=== PATIENT | female | born 1965 | race Caucasian/White ===

== ENCOUNTER 2023-12-28 14:24 | Outpatient (OUT) | payer OTHER, SELFPAY ==
--- NOTE | 2023-12-28 14:26 | VEIN_ITS ---
The [address] [address] Patient Name: CARI HALE MRN: [id number] date: 1965 Sex: F Assigned Patient Location: Current Patient Location: Accession/Order Number: [id number] Exam Date: 12/28/2023 14:26 Report Date: 12/29/2023 07:17 At the request of: GREY PAZ Procedure: VC SEGMENTAL PRESSURES EXAM: VC SEGMENTAL PRESSURES HISTORY: R09.89 symptoms and signs involving the circulatory systems COMPARISON: None. FINDINGS: Segmental pressures presented as follows (right, left) in mmHg. Brachial: 133, 134 Upper thigh: 186, 188 Lower thigh: 107, 99 Calf: 148, 175 DPA: 89, 98 SECURITIES CLERK: 94, 99 1st Toe: 69, 63 JENNIFER: 0.70, 0.74 TBI: 0.51, 0.47 The ABIs are abnormal consistent with moderate arterial disease The TBI's are abnormal consistent with severe arterial disease PVR waveforms: Right leg: Thigh: Moderate PAD Above knee: Moderate PAD Below knee: Moderate PAD Right ankle: Severe PAD Left leg: Thigh: Moderate PAD Above knee: Moderate PAD Below knee: Moderate PAD Right ankle: Severe PAD VEIN/VC SEGMENTAL PRESSURES IMPRESSION: PVR waveforms consistent with bilateral moderate to severe peripheral arterial disease, the severity progresses from proximal to distal leg Bilateral ABIs/TBI's are consistent with moderate to severe arterial disease Electronically authenticated by: SHANNAN HONG Date: 12/29/2023 07:17
== END 2023-12-28 14:25 | disposition home or self-care (01) ==
PROVIDERS: PCP Physician Assistant; Visit Provider Physician Assistant
DX: R09.89 Other specified symptoms and signs involving the circulatory and respiratory systems (principal)
CPT/HCPCS: 93923

== ENCOUNTER 2024-01-25 15:43 | Outpatient (OUT) | payer OTHER, SELFPAY | END 2024-01-25 15:44 | disposition home or self-care (01) | LOC: WC 15:44 | PROVIDERS: PCP Physician Assistant; Visit Provider Podiatrist Foot & Ankle Surgery | DX: L97.521 Non-pressure chronic ulcer of other part of left foot limited to breakdown of skin (principal) | CPT/HCPCS: G0463 ==

== ENCOUNTER 2024-01-27 12:44 | Outpatient (OUT) | payer OTHER, SELFPAY ==
[2024-01-27 13:04] LABS: Estimated GFR (African America >60 (>=60); Estimated GFR (Non-African Ame >60 (>=60)
== END 2024-01-27 12:45 | disposition home or self-care (01) ==
LOC: LAB 12:44
PROVIDERS: Visit Provider Student in an Organized Health Care Education/Training Program
DX: I73.9 Peripheral vascular disease, unspecified (principal)
CPT/HCPCS: 36415; 82565

== ENCOUNTER 2024-01-27 13:00 | Outpatient (OUT) | payer OTHER, SELFPAY ==
--- NOTE | 2024-01-27 13:41 | CT_ITS ---
[address] [address] Patient Name: CARI HALE MRN: [id number] date: 1965 Sex: F Assigned Patient Location: CT Current Patient Location: CT Accession/Order Number: [id number] Exam Date: 01/27/2024 13:33 Report Date: 01/27/2024 15:39 At the request of: NON-STAFF PHYSICIAN Procedure: CT angio abd aorta runoff EXAMINATION: CT angio abd aorta runoff HISTORY: Peripheral arterial disease COMPARISON: 03/16/2022 TECHNIQUE: After obtaining the patient's consent, CT images of the abdomen, pelvis, and lower extremities were obtained without and with non-ionic intravenous contrast material. Multi-planar reformatted/3-D images were created to optimize visualization of vascular anatomy. Dose reduction techniques were achieved by using automated exposure control and/or adjustment of mA and/or kV according to patient size and/or use of iterative reconstruction technique. FINDINGS: AORTA: No abdominal aortic aneurysm. Extensive soft and calcific atherosclerosis with approximately 60% narrowing of the distal abdominal aorta down to 5.4 mm in diameter, axial image 53 Celiac: Flow significant stenosis occlusion or aneurysm SMA: No flow significant stenosis occlusion or aneurysm Renals: Single right renal artery. Single left renal artery. No flow significant stenosis occlusion or aneurysm JIMY: No flow significant stenosis occlusion or aneurysm ILIAC: Moderate soft and calcific atherosclerotic plaque. Approximately 30% narrowing of the external iliac arteries RIGHT LEG: Moderate diffuse soft tissue calcific atherosclerotic plaque. 40% narrowing in the common femoral artery. Patent profunda femoral and deep femoral arteries. Long segment narrowing throughout the superficial femoral artery up to 80% axial image 165. 50% flow stenosis proximal popliteal artery. Flow is identified in the runoff arteries with the anterior posterior tibial artery is visualized to the distal feet and the peroneal artery to the mid calf LEFT LEG: Flow significant stenosis in the common femoral artery estimated to be 60%, axial image 114. Flow identified in the profunda femoral and deep femoral arteries. Long segment soft and calcific plaque throughout the superficial femoral artery estimated to be up to 60%, axial image 190. Flow significant stenosis in the popliteal artery estimated to be 40%. Flow identified in the runoff arteries LUNG BASES: Partially visualized 2.6 x 1.3 cm spiculated mass in the lingula with additional peripheral consolidation. LIVER: No enlargement, atrophy, abnormal density, or significant focal lesion. Focal fatty infiltration of the falciform ligament BILIARY: No visible dilatation or calcification. PANCREAS: No lesion, fluid collection, ductal dilatation, or atrophy. SPLEEN: No enlargement or focal lesion. ADRENALS: No mass or enlargement. KIDNEYS: No mass, obstruction, or calcification. BOWEL/MESENTERY: No visible mass, obstruction, or bowel wall thickening. RETROPERITONEUM: No mass or adenopathy. ABDOMINAL WALL: No mass or hernia. URINARY BLADDER: No visible focal wall thickening, lesion, or calculus. PELVIC NODES: No adenopathy. PELVIC ORGANS: No visible mass. Pelvic organs appropriate for patient age. Suspected tampon in the vagina, clinically correlate BONES: No bony lesion or fracture. Spinous process fusion L4-L5. Interbody spacer L4-L5 with 4 mm anterolisthesis of L4 and L5 CT/CT angio abd aorta runoff IMPRESSION: 2.6 cm partially visualized spiculated lingular mass. CT scan of the chest with contrast is recommended for complete evaluation Extensive atherosclerotic disease with 60% narrowing in the distal abdominal aorta, the patent abdominal aorta narrows down to a minimum of 5.4 mm in diameter Long segment flow stenosis identified bilateral superficial femoral and popliteal arteries as detailed above Electronically authenticated by: SHANNAN HONG Date: 01/27/2024 15:39
== END 2024-01-27 13:01 | disposition home or self-care (01) ==
LOC: CT 01-28 10:44
DX: I73.9 Peripheral vascular disease, unspecified (principal); I70.262 Atherosclerosis of native arteries of extremities with gangrene, left leg; R91.8 Other nonspecific abnormal finding of lung field
CPT/HCPCS: 36415; 75635; 82565; Q9967

== ENCOUNTER 2024-04-21 16:34 | Outpatient (OUT) | payer OTHER, SELFPAY ==
[2024-04-21 17:05] LABS: Basophils Absolute Auto 0.1 10^3/uL (0.0-0.1); Basophils Percent Auto 0.7 % (0.2-2.0); Eosinophils Absolute Auto 0.2 10^3/uL (0.0-0.7); Eosinophils Percent Auto 2.1 % (0.9-7.0); Hematocrit 40.7 % (36.0-48.0); Hemoglobin 13.5 g/dL (12.0-16.0); Immature Granulocytes Abs Auto 0.04 10^3/uL (0.00-0.03); Immature Granulocytes Pct Auto 0.4 % (0.0-0.5); Lymphocytes Absolute Auto 3.3 10^3/uL (1.2-3.8); Lymphocytes Percent Auto 29.5 % (20.5-60.0); Mean Corpuscular HGB Conc 33.2 g/dL (29.9-35.2); Mean Corpuscular Hemoglobin 32.1 pg (26.7-34.0); Mean Corpuscular Volume 96.9 fL (81.0-99.0); Mean Platelet Volume 9.4 fL (9.5-13.5); Monocytes Absolute Auto 0.9 10^3/uL (0.3-0.8); Monocytes Percent Auto 7.8 % (1.7-12.0); Neutrophils Absolute Auto 6.7 10^3/uL (1.4-6.5); Neutrophils Percent Auto 59.5 % (43.0-75.0); Platelet Count 359 10^3/uL (150-450); Red Cell Distribution Width 13.8 % (11.0-15.0); White Blood Count 11.2 10^3/uL (4.0-11.0)
[2024-04-21 17:18] LABS: Alanine Aminotransferase 32 U/L (14-59); Albumin Globulin Ratio 0.8; Albumin Level 3.2 g/dL (3.4-5.0); Alkaline Phosphatase 132 U/L (46-116); Anion Gap 8.9; Aspartate Amino Transferase 36 U/L (15-37); BUN Creatinine Ratio 12.8; Bilirubin Total 0.4 mg/dL (0.2-1.0); Carbon Dioxide 31.7 mmol/L (21.0-32.0); Chloride 99 mmol/L (98-107); Chol HDL Ratio 1.5; Cholesterol 214 mg/dL (<=200); Estimated GFR (African America >60 (>=60); Estimated GFR (Non-African Ame >60 (>=60); Globulin 3.9 g/dL; Glucose 56 mg/dL (74-106); HDL Cholesterol 145 mg/dL (40-60); Potassium 4.6 mmol/L (3.5-5.1); Sodium 135 mmol/L (136-145); Total Protein 7.1 g/dL (6.4-8.2); Triglycerides 91 mg/dL (<=150); VLDL CHOLESTEROL 18.2 mg/dL
== END 2024-04-21 16:35 | disposition home or self-care (01) ==
LOC: LAB 16:35
PROVIDERS: Visit Provider Family Medicine
DX: E10.9 Type 1 diabetes mellitus without complications (principal); I25.10 Atherosclerotic heart disease of native coronary artery without angina pectoris
CPT/HCPCS: 36415; 80053; 80061; 85025

== ENCOUNTER 2024-07-18 14:29 | Outpatient (OUT) | payer OTHER, SELFPAY ==
--- NOTE | 2024-07-18 14:34 | CT_ITS ---
[address] [address] Patient Name: CARI HALE MRN: [id number] date: 1965 Sex: F Assigned Patient Location: CT Current Patient Location: Accession/Order Number: [id number] Exam Date: 07/18/2024 14:42 Report Date: 07/19/2024 13:24 At the request of: NON-STAFF PHYSICIAN Procedure: CT lung screening low-dose EXAMINATION: CT lung screening low-dose HISTORY: Personal History Nicotine Use COMPARISON: CTA chest 01/14/2022 TECHNIQUE: Axial, Coronal, and Sagittal images were created without the administration of IV contrast material. Dose reduction techniques were achieved by using automated exposure control and/or adjustment of mA and/or kV according to patient size and/or use of iterative reconstruction technique. FINDINGS: LUNGS: 2.5 x 1.5 x 2.0 cm geographic shaped mass within lingula. Minimal emphysematous changes. PLEURA: No mass, effusion, or pneumothorax. VASCULATURE: No abnormality. DINAH: No mass or pathologic adenopathy. MEDIASTINUM: No mass or pathologic adenopathy. CARDIAC: No enlargement, pericardial thickening, or pericardial effusion. Coronary Artery calcifications: Coronary calcifications are heavy. AORTA: No aneurysm or dissection. CHEST WALL: No mass or axillary adenopathy BONES: No bone lesion or fracture. LIMITED ABDOMEN: Nonobstructing 5 mm total within left kidney. Limited images of the upper abdomen. OTHER: Negative. CT/CT lung screening low-dose IMPRESSION: 1. Lung-RADS Category 4B- Suspicious. Findings for which additional diagnostic testing and/ or tissue sampling is recommended. Chest CT with or without contrast, PET/CT and/ or tissue sampling depending on the * probability of malignancy and comorbidities. PET/CT may be used when there is a >= 8 mm solid component. 2. 2.5 cm geographic shaped mass within lingula most suggestive of neoplasm. PET imaging recommended. Electronically authenticated by: JESSE FIELDS Date: 07/19/2024 13:24
--- NOTE | 2024-07-18 14:35 | MM_ITS ---
Patient Name: CARI HALE MR#: [id number] : 1965 Exam Date: 07/18/2024 Ordering Doctor: Non-Staff Physician RADIOLOGY REPORT PROCEDURE: MM TOMOSYNTHESIS SCREENING BI COMPARISON: None. INDICATIONS: Screening Calculator Name NCI Breast Cancer Risk Assessment Tool 5 Year Breast Cancer Risk Not Reported. Lifetime Breast Cancer Risk Not Reported. Personal Breast Cancer No Personal Ovarian Cancer No Treatments None Family Cancers None LOCATION: [facility] BREAST COMPOSITION: The breasts are extremely dense, which lowers the sensitivity of mammography. FINDINGS: DIAGNOSTIC CATEGORY 0--INCOMPLETE: NEED ADDITIONAL IMAGING EVALUATION. Scattered benign-appearing calcifications are present. Scattered benign-appearing lymph nodes are present. RIGHT BREAST: No significant suspicious finding. LEFT BREAST: 3 cm area of architectural distortion anterior breast, spot compression and ultrasound recommended RECOMMENDATIONS: ADDITIONAL MAMMOGRAPHIC VIEWS REQUIRED: LEFT BREAST - spot compression views ULTRASOUND: LEFT BREAST PLEASE NOTE: A NORMAL MAMMOGRAM DOES NOT EXCLUDE THE POSSIBILITY OF BREAST CANCER. A CLINICALLY SUSPICIOUS PALPABLE LUMP SHOULD BE BIOPSIED. Dictated by: Tc Boland MD on 07/18/2024 at 15:36 Approved by: Tc Boland MD on 07/18/2024 at 15:40
--- OUTSIDE RECORDS SUMMARY | 2024-07-18 14:48 | XMS_ITS | CCD ---
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 Name Role Phone REQUEST, DR NONE LISTED Primary Care UnavailSHAIKH Leydi Mirza Admitting Unavailable SHAIKH Leydi SHELBY Attending Unavailable DONNIE, DR JESSE Olmos Consulting Unavailable CHRISTIANA, DR BELLAMY Consulting Unavailable SHAIKH Leydi SHELBY Consulting Unavailable SILVA ALMANZAR Consulting Unavailable Geovanny Schaffer Unavailable Panchito DIALLO Primary Care Physician [phone] DO Panchito Diallo Primary Care Provider MD Geovanny Schaffer Attending Provider [phone] Oren Jones Unavailable Haylee Hinds Admitting Unavailable Haylee Hinds Attending Unavailable Panchito Diallo Primary Care Unavailable Frida Valdez Primary Care Physician [phone] Frida Valdez Attending Unavailable Frida Valdez Attending Unavailable Frida Valdez Attending Unavailable Frida Valdez Attending Unavailable José MiguelFrida cedillo Attending Unavailable Panchito DIALLO Attending Unavailable Han Olivera Attending Unavailable Lee Martinez Attending Unavailable Jesse Carr Consulting Unavailable Lee Martinez Admitting Unavailable Jesse Carr Consulting Unavailable Jesse Carr Consulting Unavailable Jesse Carr Consulting Unavailable Jesse Carr Consulting Unavailable Jesse Carr Consulting Unavailable Jesse Carr Consulting Unavailable Jesse Carr Consulting Unavailable Jesse Carr Consulting Unavailable MD Jesse Carr Consulting Unavailable Oren Mir Consulting UnavailMD Oren Steward Consulting Unava ilOren Leavitt Consulting Unavaila Lee Carey Attending Unavailable MD Oren Mir Consulting Lee Clement Admitting Unavailable Jesse Carr Consulting Unavailable CLINT Valdez Admitting Unavailable Unavailable Unavailable Unavailable Allergies Allergy Classification Reported Allergen(s) Allergy Type Date of Onset Reaction(s) Facility (7 sources) Dextroamphetamine ; Translations: [Lipitor] Drug Allergy [address] [facility] Repository (16 sources) Penicillins; Translations: [penicillins] Drug allergy (disorder) 0 Swelling of Lip/Tongue/Thro at [facility] Repository (19 sources) atorvastatin; Translations: [atorvastatin] Drug Allergy 3 Unknown, Unknown Reaction [facility] (10 sources) Penicillin G Drug Allergy Unknown [employer] Other (14 sources) Acetaminophen / HYDROcodone; Translations: [acetaminophen-hy drocodone] Drug Allergy [facility] (14 sources) Pravastatin; Translations: [pravastatin] Drug Allergy [facility] (1 source) atorvastatin Drug Allergy 3 [facility] Repository (1 source) Penicillin Drug Allergy 3 [facility] Repository (1 source) Penicillins Drug allergy (disorder) 3 [facility] Repository Medications Current Medications Medication Drug Class(es) Dates Sig (Normalized) Sig (Original) amitriptyline hydrochloride 10 mg oral tablet (2 sources) Tricyclic Antidepressant Start: 12-09-2020 take 1 tablet by mouth once daily at bedtime amitriptyline 10 mg Tab 10 mg = 1 tab(s), Oral, Once a day (at bedtime), # 90 tab(s), Refills(s) 3, Pharmacy: [facility]/pharmacy #[id number], 160, cm, 12/09/20 13:39:00 EDT, Height/Length Dosing, 62.2, kg, 12/09/20 13:39:00 EDT, Weight Dosing Start Date: 12/09/20 Status: Ordered aspirin 81 mg delayed release oral tablet (7 sources) Platelet Aggregation Inhibitor, Nonsteroidal Anti-inflammatory Drug Start: 03-21-2024 take 1 tablet by mouth once daily aspirin 81 mg Oral EC Tab 81 mg = 1 tab(s), Oral, Daily, # 30 tab(s), Refills(s) 0 Start Date: 03/21/24 Status: Ordered Aspirin Active balsalazide disodium 750 mg oral capsule (4 sources) Aminosalicylate take 2 capsules by mouth twice daily Balsalazide Disodium 750 MG TAKE 2 CAPSULES BY MOUTH TWICE A DAY for 30 Active budesonide 3 mg delayed release oral capsule (9 sources) Corticosteroid Start: 07-28-2023 take 1 capsule by mouth three times daily Budesonide 3 MG 1 Capsule Orally three times per day for 30 days Jul, Active Start: 01-18-2023 budesonide 3 m g oral delayed release capsule 9 mg = 3 cap(s), Oral, Daily, 90 EA, 0 Refill(s), TAKE 3 CAPSULES BY MOUTH EVERY DAY, Refills(s) 0 Start Date: 05/25/23 Status: Ordered Start: 10-13-2022 take 9 mg by mouth once daily Budesonide Active 9 MG PO Daily 90 October 13, 2022 12:00am Start: 09-30-2020 take 3 capsules by m outh once daily in the morning budesonide 3 mg oral delayed release capsule 9 mg = 3 cap(s), Oral, qAM, # 90 cap(s), Refills(s) 2, Pharmacy: [facility]/pharmacy #[id number], 160, cm, 09/05/20 14:51:00 EST, Height/Length Dosing, 60.4, kg, 09/05/20 14:51:00 EST, Weight Dosing Start Date: 09/30/20 Status: Ordered 24 hr buPROPion hydrochloride 150 mg extended release oral tablet (1 source) Aminoketone Start: 03-21-2024 take 1 tablet by mouth once daily buPROPion 150 mg/24 hours XL Tab 150 mg = 1 tab(s), Oral, Daily, Refills(s) 0 Start Date: 03/21/24 Status: Ordered carbidopa 10 mg / levodopa 100 mg oral tablet (2 sources) Aromatic Amino Acid Decarboxylation Inhibitor, Aromatic Amino Acid Start: 09-24-2020 Sinemet 10 mg-100 mg Tab 1 tab(s), Oral, BID, 60 tab(s), Refill(s) 5, [facility]/pharmacy #[id number], 160, cm, 09/05/20 14:51:00 EST, Height/Length Dosing, 60.4, kg, 09/05/20 14:51:00 EST, Weight Dosing Start Date: 09/24/20 Status: Ordered citalopram 10 mg oral tablet (11 sources) Serotonin Reuptake Inhibitor Start: 10-13-2022 take 10 mg by mouth once daily Citalopram Active 10 MG PO Daily October 13, 2022 12:00am Start: 05-12-2022 take 3 tablets by mo [facility] once daily, then take 2 tablets by mouth once daily, then take 1 tablet by mouth once daily, then take 0.5 tablet by mouth once daily citalopram 10 mg Tab See Instructions, 3 tab(s) Oral Daily x 2 weeks, then 2 tabs daily x 2 weeks then 1 tab daily x 1 week then 1/2 tab daily x 1 week., # 74 tab(s), Refills(s) 0, Pharmacy: [facility]/pharmacy #[id number], 158, cm, 05/12/22 15:40:00 EDT, Height/Length Dosing, 59.8, k... Start Date: 05/12/22 Status: Ordered Start: 02-05-2022 [facility] CeleXA 40 mg Tab 40 mg = 1 tab(s), Oral, Daily, # 90 tab(s), Refills(s) 1, Pharmacy: [facility]/pharmacy #[id number], 158, cm, 09/02/21 14:45:00 EST, Height/Length Dosing, 60, kg, 09/02/21 14:45:00 EST, Weight Dosing Start Date: 02/05/22 Status: Ordered Citalopram [place] bromide Active clopidogrel 75 mg oral tablet (1 source) [id number] Platelet Inhibitor Start: 03-21-2024 take 1 tablet by mouth once daily clopidogrel 75 mg Tab 75 mg = 1 tab(s), Oral, Daily, # 30 tab(s), Refills(s) 0 Start Date: 03/21/24 Status: Ordered colestipol hydrochloride 1000 mg oral tablet (2 sources) Bile Acid Sequestrant Start: 10-26-2022 take 2 tablets by mouth every twenty-four hours Colestipol HCl 1 GM 2 tablets Orally Once a day for 30 days Sep, Active dicyclomine hydrochloride 20 mg oral tablet (4 sources) Anticholinergic Dicyclomine HCl 20 MG TAKE 1 TABLET BY MOUTH THREE TIMES A DAY FOR 30 DAYS for 30 Active ergocalciferol 1.25 mg oral capsule (1 source) Provitamin D2 Compound Start: 10-13-2022 take 50 ug by mouth every week Ergocalciferol (Vitamin D2) Active 50 MCG PO every week October 13, 2022 12:00am escitalopram 10 mg oral tablet (5 sources) Serotonin Reuptake Inhibitor Start: 12-31-2022 take 1 tablet by mouth once daily escitalopram 10 mg Tab 10 mg = 1 tab(s), Oral, Daily, # 90 tab(s), Refills(s) 0, Pharmacy: [facility]/pharmacy #[id number], 158, cm, 12/31/22 15:13:00 EDT, Height/Length Dosing, 57.9, kg, 12/31/22 15:13:00 EDT, Weight Dosing Start Date: 12/31/22 Status: Ordered estradiol 2 mg oral tablet (9 sources) Estrogen Start: 12-07-2023 take 1 tablet by mouth at bedtime estradiol 2 mg Tab 2 mg = 1 tab(s), Oral, Bedtime, # 90 tab(s), Refills(s) 3, Pharmacy: [facility]/pharmacy #[id number], 158, cm, 05/25/23 15:27:00 EDT, Height/Length Dosing, 57.3, kg, 05/25/23 15:27:00 EDT, Weight Dosing Start Date: 12/07/23 Status: Ordered Start: 12-25-2022 take 1 tablet by luke th at bedtime estradiol 2 mg Tab 2 mg = 1 tab(s), Oral, Bedtime, # 90 tab(s), Refills(s) 3, Pharmacy: [facility]/pharmacy #[id number], 158, cm, 06/11/22 15:39:00 EST, Height/Length Dosing, 61.4, kg, 06/11/22 15:39:00 EST, Weight Dosing Start Date: 12/25/22 Status: Ordered Start: 10-13-2022 take 2 mg by mouth once daily Estradiol Active 2 MG PO Daily October 13, 2022 12:00am Start: 01-09-2022 take 1 tablet by luke th at bedtime estradiol 2 mg Tab 2 mg = 1 tab(s), Oral, Bedtime, # 90 tab(s), Refills(s) 3, Pharmacy: [facility]/pharmacy #[id number], 158, cm, 09/02/21 14:45:00 EST, Height/Length Dosing, 60, kg, 09/02/21 14:45:00 EST, Weight Dosing Start Date: 01/09/22 Status: Ordered Fish Oils (4 sources) gabapentin 300 mg oral capsule (11 sources) Anti-epileptic Agent Start: 12-08-2021 take 1 capsule by mouth three times daily gabapentin 300 mg Cap 300 mg = 1 cap(s), Oral, TID, M54.106, # 270 cap(s), Refills(s) 1, Pharmacy: [facility]/pharmacy #[id number], 158, cm, 09/02/21 14:45:00 EST, Height/Length Dosing, 60, kg, 09/02/21 14:45:00 EST, Weight Dosing Start Date: 12/08/21 Status: Ordered hydrOXYzine hydrochloride 25 mg oral tablet (6 sources) Antihistamine Start: 02-04-2024 take 1 tablet by mouth four times daily as needed for anxiety hydrOXYzine hydrochloride 25 mg Tab 25 mg = 1 tab(s), Oral, QID, PRN for anxiety, # 40 tab(s), Refills(s) 3, Pharmacy: [facility]/pharmacy #[id number], 158, cm, 05/25/23 15:27:00 EDT, Height/Length Dosing, 57.3, kg, 05/25/23 15:27:00 EDT, Weight Dosing Start Date: 02/04/24 Status: Ordered Start: 02-01-2023 take 1 tablet by luke four times daily as needed for anxiety hydrOXYzine hydrochloride 25 mg Tab 25 mg = 1 tab(s), Oral, QID, PRN for anxiety, # 40 tab(s), Refills(s) 0, Pharmacy: [facility]/pharmacy #[id number], 158, cm, 12/31/22 15:13:00 EDT, Height/Length Dosing, 57.9, kg, 12/31/22 15:13:00 EDT, Weight Dosing Start Date: 02/01/23 Status: Ordered Start: 12-31-2022 take 1 tablet by luke four times daily as needed for anxiety hydrOXYzine hydrochloride 25 mg Tab 25 mg = 1 tab(s), Oral, QID, PRN for anxiety, # 40 tab(s), Refills(s) 0, Pharmacy: [facility]/pharmacy #[id number], 158, cm, 12/31/22 15:13:00 EDT, Height/Length Dosing, 57.9, kg, 12/31/22 15:13:00 EDT, Weight Dosing Start Date: 12/31/22 Status: Ordered hyoscyamine sulfate 0.125 mg oral tablet (13 sources) Start: 01-29-2023 End: 02-28-2023 hyoscyamine 0.125 mg oral Ta b 0.125 mg = 1 tab(s), Oral, QID, TAKE 1 TABLET BY MOUTH EVERY 4 HOURS NEEDED FOR 30 DAYS, X 30 day(s), # 120 tab(s), Refills(s) 0, [id number], 158, cm, 12/31/22 15:13:00 EDT, Height/Length Dosing, 57.9, kg, 12/31/22 15:13:00 EDT, W... Start Date: 01/29/23 Stop Date: 02/28/23 Status: Ordered Start: 01-14-2023 take 1 tablet under the tongue four times daily as needed Hyoscyamine Sulfate 0.125 MG 1 tablet under the tongue and allow to dissolve as needed Sublingual Four times a day for 30 days Dec, Active Start: 12-31-2022 take 1 tablet by luke th every four hours as needed hyoscyamine 0.125 mg oral Tab TAKE 1 TABLET BY MOUTH EVERY 4 HOURS NEEDED FOR 30 DAYS Start Date: 12/31/22 Status: Ordered take 1 tablet under the tongue three times daily as needed Levsin/SL 0.125 MG 1 tablet under the tongue and allow to dissolve as needed Sublingual Three times a day for 30 days Active Insulin Aspart U-100 (Novolog U-100 Insulin Aspart) 100 unit/mL solution (1 source) Start: 10-13-2022 inject 19 [IU] by subcutaneous injection once daily Insulin Aspart U-100 (Novolog U-100 Insulin Aspart) 100 unit/mL solution Active 19 UNIT SUBCUT Daily October 13, 2022 12:00am sliding scale insulin aspart, human 100 unt/ml injectable solution (18 sources) Insulin Analog Start: 12-01-2023 NovoLOG 100 units/mL injectable solution See Instructions, 35 units daily per pump. Dx E11.01, # 10 mL, Refills(s) 5, Pharmacy: [facility]/pharmacy #[id number], 158, cm, 05/25/23 15:27:00 EDT, Height/Length Dosing, 57.3, kg, 05/25/23 15:27:00 EDT, Weight Dosing Start Date: 12/01/23 Status: Ordered Start: 02-08-2023 NovoLOG 100 un its/mL injectable solution See Instructions, 35 units daily per pump. Dx E11.01, # 10 mL, Refills(s) 5, Pharmacy: [facility]/pharmacy #[id number], 158, cm, 12/31/22 15:13:00 EDT, Height/Length Dosing, 57.9, kg, 12/31/22 15:13:00 EDT, Weight Dosing Start Date: 02/08/23 Status: Ordered Start: 07-23-2022 NovoLOG 100 un its/mL injectable solution See Instructions, 35 units daily per pump. Dx E11.01, # 10 mL, Refills(s) 5, Pharmacy: [facility]/pharmacy #[id number], 158, cm, 06/11/22 15:39:00 EST, Height/Length Dosing, 61.4, kg, 06/11/22 15:39:00 EST, Weight Dosing Start Date: 07/23/22 Status: Ordered Start: 10-24-2021 NovoLOG 100 un its/mL injectable solution See Instructions, 35 units daily per pump. Dx E11.01, # 10 mL, Refills(s) 5, Pharmacy: [facility]/pharmacy #[id number], 158, cm, 09/02/21 14:45:00 EST, Height/Length Dosing, 60, kg, 09/02/21 14:45:00 EST, Weight Dosing Start Date: 10/24/21 Status: Ordered NovoLOG Active lamoTRIgine 100 mg oral tablet (11 sources) Mood Stabilizer, Anti-epileptic Agent Start: 03-21-2024 take 1 tablet by mouth once daily lamotrigine 100 mg Tab 100 mg = 1 tab(s), Oral, Daily, Refills(s) 0 Start Date: 8/20/24 Status: Ordered Start: 05-12-2022 take 3 tablets by mo [facility] once daily lamotrigine 50 mg oral tablet, extended release See Instructions, 3 tab(s) Oral Daily x 2 week, then 2 tabs x 2 week then 1 tab x 2 week. Then will start the 25 mg, # 74 tab(s), Refills(s) 0, [id number], 158, cm, 05/12/22 15:40:00 EDT, Height/Length Dosing, 59.8, kg, 05/12/22 15:... Start Date: 05/12/22 Status: Ordered Start: 02-05-2022 [facility] lamotrigine 200 mg Tab 200 mg = 1 tab(s), Oral, Daily, # 90 tab(s), Refills(s) 1, [id number], 158, cm, 09/02/21 14:45:00 EST, Height/Length Dosing, 60, kg, 09/02/21 14:45:00 EST, Weight Dosing Start Date: 02/05/22 Status: Ordered lamoTRIgine Acti ve levothyroxine sodium 0.15 mg oral tablet (19 sources) l-Thyroxine Start: 02-28-2024 take 1 tablet by mouth once daily levothyroxine 150 mcg (0.15 mg) Tab See Instructions, TAKE 1 TABLET BY MOUTH EVERY DAY, # 90 tab(s), Refills(s) 1, Pharmacy: [id number], 158, cm, 05/25/23 15:27:00 EDT, Height/Length Dosing, 57.3, kg, 05/25/23 15:27:00 EDT, Weight Dosing Start Date: 02/28/24 Status: Ordered Start: 10-13-2022 take 150 ug by mouth once daily Levothyroxine Active 150 MCG PO Daily October 13, 2022 12:00am Start: 08-13-2022 take 1 tablet by luke once daily Synthroid 150 mcg (0.15 mg) Tab 0.15 mg = 1 tab(s), Oral, Daily, # 90 tab(s), Refills(s) 1, [id number], 158, cm, 06/11/22 15:39:00 EST, Height/Length Dosing, 61.4, kg, 06/11/22 15:39:00 EST, Weight Dosing Start Date: 08/13/22 Status: Ordered Start: 02-05-2022 take 1 tablet by luke th once daily Synthroid 150 mcg (0.15 mg) Tab 0.15 mg = 1 tab(s), Oral, Daily, # 90 tab(s), Refills(s) 1, Pharmacy: [facility]/pharmacy #[id number], 158, cm, 09/02/21 14:45:00 EST, Height/Length Dosing, 60, kg, 09/02/21 14:45:00 EST, Weight Dosing Start Date: 02/05/22 Status: Ordered Levothyroxine So dium Active LORazepam 0.5 mg oral tablet (1 source) Benzodiazepine Start: 05-12-2022 End: 05-26-2022 take 1 tablet by mouth once daily as needed for anxiety Ativan 0.5 mg Tab 0.5 mg = 1 tab(s), Oral, Daily, PRN for anxiety, X 14 day(s), # 14 tab(s), Refills(s) 0, Pharmacy: [facility]/pharmacy #[id number], 158, cm, 05/12/22 15:40:00 EDT, Height/Length Dosing, 59.8, kg, 05/12/22 15:40:00 EDT, Weight Dosing Start Date: 05/12/22 Stop Date: 05/26/22 Status: Ordered Medtronic Insulin Pump 770G (8 sources) Start: 02-13-2021 Medtronic Insu james Pump 770G Medtronic Insulin Pump 770G, See Instructions, 1 EA, 0, as directed, Supply Start Date: 02/13/21 Status: Ordered ONETOUCH DELICA PLUS 33G LANCT (2 sources) Start: 05-12-2022 ONETOUCH DELIC A PLUS 33G LANCT USE TO TEST BLOOD SUGAR 5 TIMES A DAY AND NEEDED DX: E11.69 Start Date: 05/12/22 Status: Ordered predniSONE 5 mg oral tablet (3 sources) Start: 10-15-2022 predniSONE 5 M G 4 tabs daily for 7 days, 3 tabs daily for 7 days, 2 tabs daily for 7 days, 1 tab daily for 7 days Orally Once a day for 28 days Sep, Active progesterone 100 mg oral capsule (19 sources) Progesterone Start: 01-03-2024 take 1 capsule by mouth once daily at bedtime progesterone 100 mg oral capsule 100 mg = 1 cap(s), Oral, Once a day (at bedtime), # 90 cap(s), Refills(s) 3, Pharmacy: [facility]/pharmacy #[id number], 158, cm, 05/25/23 15:27:00 EDT, Height/Length Dosing, 57.3, kg, 05/25/23 15:27:00 EDT, Weight Dosing Start Date: 01/03/24 Status: Ordered Start: 01-06-2023 take 1 capsule by mo uth once daily at bedtime progesterone 100 mg oral capsule 100 mg = 1 cap(s), Oral, Once a day (at bedtime), # 90 cap(s), Refills(s) 3, Pharmacy: [facility]/pharmacy #[id number], 158, cm, 12/31/22 15:13:00 EDT, Height/Length Dosing, 57.9, kg, 12/31/22 15:13:00 EDT, Weight Dosing Start Date: 01/06/23 Status: Ordered Start: 01-16-2022 take 1 capsule by mo uth once daily at bedtime progesterone 100 mg oral capsule 100 mg = 1 cap(s), Oral, Once a day (at bedtime), # 90 cap(s), Refills(s) 3, Pharmacy: [facility]/pharmacy #[id number], 158, cm, 09/02/21 14:45:00 EST, Height/Length Dosing, 60, kg, 09/02/21 14:45:00 EST, Weight Dosing Start Date: 01/16/22 Status: Ordered Progesterone Act marlo propranolol hydrochloride 20 mg oral tablet (13 sources) beta-Adrenergic Geoffrey Start: 05-12-2022 take 1 tablet by mouth twice daily propranolol 20 mg Tab 20 mg = 1 tab(s), Oral, BID, # 180 tab(s), Refills(s) 3, Pharmacy: [facility]/pharmacy #[id number], 158, cm, 05/25/23 15:27:00 EDT, Height/Length Dosing, 57.3, kg, 05/25/23 15:27:00 EDT, Weight Dosing Start Date: 05/26/23 Status: Ordered rosuvastatin calcium 5 mg oral tablet (11 sources) HMG-CoA Reductase Inhibitor Start: 01-18-2024 take 1 tablet by mouth once daily rosuvastatin 5 mg Tab 5 mg = 1 tab(s), Oral, Daily, # 90 tab(s), Refills(s) 1, [id number], 158, cm, 05/25/23 15:27:00 EDT, Height/Length Dosing, 57.3, kg, 05/25/23 15:27:00 EDT, Weight Dosing Start Date: 01/18/24 Status: Ordered Start: 07-31-2022 take 1 tablet by luke th once daily rosuvastatin 5 mg Tab 5 mg = 1 tab(s), Oral, Daily, # 90 tab(s), Refills(s) 1, [id number], 158, cm, 06/11/22 15:39:00 EST, Height/Length Dosing, 61.4, kg, 06/11/22 15:39:00 EST, Weight Dosing Start Date: 07/31/22 Status: Ordered sertraline 50 mg oral tablet (3 sources) Serotonin Reuptake Inhibitor Start: 01-03-2023 take 1 tablet by mouth once daily Zoloft 50 mg Tab 50 mg = 1 tab(s), Oral, Daily, # 90 tab(s), Refills(s) 0, [id number], 158, cm, 12/31/22 15:13:00 EDT, Height/Length Dosing, 57.9, kg, 12/31/22 15:13:00 EDT, Weight Dosing Start Date: 01/03/23 Status: Ordered sulfaSALAzine 500 mg oral tablet (4 sources) Aminosalicylate Start: 12-22-2022 take 1 tablet by mouth every twenty-four hours sulfaSALAzine 500 MG 1 tablet Orally Once a day for 30 days November, Active vitamin B12 (6 sources) Vitamin B12 Vitamin B12 Acti ve Vitamin D (10 sources) Vitamin D Active Vitamin D 50,000 intl units (1.25 mg) oral capsule (8 sources) Start: 12-10-2023 Vitamin D 50,0 00 intl units (1.25 mg) oral capsule 50,000 International_Unit, Oral, qWeek, # 12 EA, Refills(s) 3, [id number], 158, cm, 05/25/23 15:27:00 EDT, Height/Length Dosing, 57.3, kg, 05/25/23 15:27:00 EDT, Weight Dosing Start Date: 12/10/23 Status: Ordered Start: 12-25-2022 Vitamin D 50,0 00 intl units (1.25 mg) oral capsule 50,000 International_Unit, Oral, qWeek, # 12 EA, Refills(s) 3, [id number], 158, cm, 06/11/22 15:39:00 EST, Height/Length Dosing, 61.4, kg, 06/11/22 15:39:00 EST, Weight Dosing Start Date: 12/25/22 Status: Ordered Start: 10-23-2021 Vitamin D 50,0 00 intl units (1.25 mg) oral capsule 50,000 International_Unit, Oral, qWeek, # 12 EA, Refills(s) 3, [id number], 158, cm, 09/02/21 14:45:00 EST, Height/Length Dosing, 60, kg, 09/02/21 14:45:00 EST, Weight Dosing Start Date: 10/23/21 Status: Ordered Problems Active Problems Problem Classification Problem Date Documented Da te Episodic/Chronic Abdominal pain (13 sources) Abdominal pain; Translations: [Unspecified abdominal pain] Onset: 10-29-2021 Resolved: 10-29-2021 Episodic Alcohol-related disorders (2 sources) Alcohol dependence, in remission; Translations: [Alcohol abuse] Onset: 01-19-2022 Chronic Allergic reactions (1 source) Dermatitis, unspecified; Translations: [Dermatitis, unspecified] Onset: 10-08-2023 Episodic Anxiety disorders (9 sources) Anxiety disorder; Translations: [Anxiety disorder, unspecified] Onset: 12-31-2022 05-26-2021 Chronic Chronic obstructive pulmonary disease and bronchiectasis (11 sources) Pulmonary emphysema; Translations: [Emphysema, unspecified] Onset: 05-12-2022 Chronic Complications of surgical procedures or medical care (1 source) Postoperative hypothyroidism; Translations: [Postprocedural hypothyroidism] Onset: 03-21-2024 Chronic Coronary atherosclerosis and other heart disease (10 sources) Atherosclerotic heart disease of [place] coronary artery without angina pectoris; Translations: [Coronary atherosclerosis] Onset: 01-19-2022 01-18-2014 Chronic Coronary atherosclerosis and other heart disease (1 source) Presence of coronary angioplasty implant and graft; Translations: [PRESENCE COR ANGPLSTY IMPLANT AND GRAFT] Onset: 01-19-2022 Episodic Diabetes mellitus with complications (10 sources) Complication due to diabetes mellitus; Translations: [Type 2 diabetes mellitus with other specified complication] Onset: 12-31-2022 Chronic Comment on above: Noted in [facility] doc umentation 08/12/2021 page 2, added per outpatient CDI policy. Diabetes mellitus without complication (10 sources) Type 1 diabetes mellitus without complications; Translations: [Type 2 diabetes mellitus without complication] Onset: 01-19-2022 Chronic Comment on above: Added per outpatient CDI policy. Diabetes mellitus without complication (1 source) Presence of insulin pump (external) (internal); Translations: [PRESENCE INSULIN PUMP EXT INTERNAL] Onset: 01-19-2022 Episodic Disorders of lipid metabolism (11 sources) Hyperlipidemia; Translations: [Hyperlipidemia, unspecified] Onset: 12-31-2022 05-26-2019 Chronic E Codes: Fall (1 source) Unspecified fall, initial encounter; Translations: [UNSPECIFIED FALL INITIAL ENCOUNTER] Onset: 01-19-2022 Episodic Essential hypertension (10 sources) Hypertensive disorder; Translations: [Essential hypertension] Onset: 12-31-2022 01-18-2014 Chronic Fluid and electrolyte disorders (7 sources) Dehydration; Translations: [Dehydration] Onset: 12-31-2022 Episodic Menopausal disorders (1 source) Postmenopausal bleeding 05-25-2023 Chronic Mood disorders (12 sources) Major depressive disorder, single episode, unspecified; Translations: [Mild major depression, single episode] Onset: 01-19-2022 Chronic Nonspecific chest pain (4 sources) Chest pain, unspecified; Translations: [CHEST PAIN UNSPECIFIED] Onset: 01-14-2022 Episodic Nutritional deficiencies (8 sources) Vitamin D deficiency 05-26-2019 Chronic Nutritional deficiencies (7 sources) Vitamin B deficiency; Translations: [Deficiency of other specified B group vitamins] Onset: 12-31-2022 Episodic Osteoarthritis (8 sources) Osteoarthritis 11-16-2014 Chronic Comment on above: Knees Other aftercare (1 source) Other senior living (current) drug therapy; Translations: [OTH [facility] CURRENT DRUG THERAPY] Onset: 01-19-2022 Episodic Other aftercare (1 source) residential (current) use of insulin; 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] Onset: 01-19-2022 Episodic Other aftercare (1 source) Long-term current use of insulin; Translations: [residential (current) use of insulin] Onset: 12-31-2022 Episodic Other and unspecified benign neoplasm (8 sources) History of polyp of colon 09-02-2021 Episodic Other endocrine disorders (8 sources) Disorder of endocrine system; Translations: [Endocrine disorder, unspecified] Onset: 05-12-2022 Episodic Other gastrointestinal disorders (10 sources) Incontinence of feces; Translations: [Full incontinence of feces] Episodic Other gastrointestinal disorders (10 sources) Abnormal feces; Translations: [Other fecal abnormalities] Episodic Other gastrointestinal disorders (8 sources) Loose stool 09-02-2021 Episodic Other gastrointestinal disorders (1 source) Functional diarrhea Episodic Other injuries and conditions due to external causes (1 source) Unspecified injury of head, initial encounter; Translations: [UNSPECIFIED INJURY HEAD INITIAL ENC] Onset: 01-19-2022 Episodic Other injuries and conditions due to external causes (8 sources) History of fall 05-26-2021 Episodic Other nervous system disorders (1 source) Tremor, unspecified; Translations: [TREMOR UNSPECIFIED] Onset: 01-19-2022 Episodic Other nervous system disorders (10 sources) Tremor; Translations: [Tremor, unspecified] Onset: 05-12-2022 Episodic Other screening for suspected conditions (not mental disorders or infectious disease) (9 sources) Encounter for screening mammogram for malignant neoplasm of breast; Translations: [Screening for malignant neoplasm done] Onset: 12-31-2022 Episodic Other upper respiratory disease (8 sources) Chronic hoarseness 12-27-2020 Episodic Peripheral and visceral atherosclerosis (1 source) Peripheral vascular disease; Translations: [Peripheral vascular disease, unspecified] Onset: 03-21-2024 Chronic Regional enteritis and ulcerative colitis (18 sources) Ulcerative colitis; Translations: [Ulcerative colitis, unspecified, without complications] Onset: 10-29-2021 Resolved: 10-29-2021 Chronic Residual codes; unclassified (1 source) Other problems related to lifestyle; Translations: [OTHER PROBLEMS RELATED TO LIFESTYLE] Onset: 01-19-2022 Episodic Spondylosis; intervertebral disc disorders; other back problems (8 sources) Low back pain 09-05-2020 Episodic Substance-related disorders (11 sources) Cocaine abuse, in remission; Translations: [Nicotine dependence, cigarettes, uncomplicated] Onset: 01-19-2022 12-27-2020 Chronic Comment on above: Added secondary to d ocumentation in Social History. Superficial injury; contusion (1 source) Contusion of other part of head, initial encounter; Translations: [CONTUS OTH PRT HEAD INITIAL ENCNTR] Onset: 01-19-2022 Episodic Thyroid disorders (10 sources) Hypothyroidism, unspecified; Translations: [Hypothyroidism] Onset: 01-19-2022 Chronic Transient cerebral ischemia (1 source) Transient cerebral ischemia; Translations: [Transient cerebral ischemic attack, unspecified] Onset: 03-21-2024 Chronic Unclassified (1 source) CONTACT W/AND (SUSP) EXPOS COVID-19; Translations: [CONTACT W/AND (SUSP) EXPOS COVID-19] Onset: 01-19-2022 Unclassified (16 sources) Body mass index 20-24 - normal 11-27-2019 Unclassified (8 sources) Lifestyle 05-26-2021 Unclassified (20 sources) Patient encounter status 05-26-2021 Unclassified (6 sources) Long-term current use of insulin 06-10-2022 Comment on above: Added per outpatient CDI policy. Past or Other Problems Problem Classification Problem Date Documented Da te Episodic/Chronic Other gastrointestinal disorders (2 sources) Full incontinence of feces Onset: 10-29-2021 Resolved: 11-13-2021 Episodic Other gastrointestinal disorders (1 source) Other fecal abnormalities Onset: 10-29-2021 Resolved: 10-29-2021 Episodic Results Test Name Value Interpretation Reference Range Facility Coding Queryon 03-31-2024 Coding Query Coding Query From: More Meyer To: Ghada CRUZ; Cc: Lee Martinez DO; Sent: 03/28/2024 11:04:27 EDT ! Subject: Coding Query Documentation in the medical record indicates this patient has been admitted with or diagnosed as having: TIA The following is also documented in the medical record: Patient symptoms not related to stroke. Neurology feels that symptoms are secondary to hypoglycemia due to patient increasing insulin coverage to cover alcohol abuse. MRI/MRA of the head both negative for acute findings. Based on your medical judgement, can you please verify if TIA is: [___] Ruled out [___] Ruled in [___] Other In responding to this request, please exercise your independent professional judgement. The fact that a question is asked does not imply that any particular answer is desired or expected. Thank You, More From: Ghada CRUZ To: More Meyer; Sent: 03/29/2024 21:08:38 EDT Subject: RE: Coding Query Caller Name: HALECARI Valenzuela; Caller Number: H , M ruled out... d/c summary states symptoms secondary to hypoglycemia. However, TIA was ruled out also. From: Lee Martinez DO To: More Meyer; Sent: 03/31/2024 08:15:56 EDT Subject: RE: Coding Query Caller Name: CARI HALE Terrie; Caller Number: H , M [facility] Provider Letteron 03-24-2024 Provider Letter Provider Letter March 24, 2024 CARI HALE [address] [place] [id number] CARI HALE 1965 Dear Cari, We have been trying to reach you with no success. It is important that you return our call regarding your recent hospital discharge upon receiving this letter. Also, at the time of your call, please provide us with your current information. Thank you for your prompt attention to this matter. Sincerely, Tre Salas RN Supervisor [employer] [phone] [facility] CHEMISTRYOrdered By: Lab ROP User on 03-22-2024 Glucose [Mass/Vol] 354 mg/dL High 55 - 99 mg/dL [facility] POC Subsection Comment on above: Result Comment: Carter chrystal RN/ POC Device SN [id number] 1 Invalid Interpretation Code [facility] POC Subsection POC User ID [id number] 1 Invalid Interpretation Code [facility] POC Subsection POC Username PITA BAUTISTA Invalid Interpretation Code [facility] POC Subsection Glucose [Mass/Vol] 52 mg/dL Low 55 - 99 mg/dL [facility] POC Subsection Comment on above: Result Comment: Carter chrystal RN/ POC Device SN [id number] 1 Invalid Interpretation Code [facility] POC Subsection POC User ID [id number] 1 Invalid Interpretation Code [facility] POC Subsection POC Username PITA BAUTISTA Invalid Interpretation Code [facility] POC Subsection CHEMISTRYOrdered By: SYSTEM SYSTEM on 03-22-2024 Free T4 [Mass/Vol] 1.32 ng/dL Normal 0.58 - 1. 64 ng/dL Remisol Chem TSH Qn 0.01 m[IU]/L Low 0.34 - 5.60 mcIU/mL Remisol Chem CTA Neckon 03-22-2024 CTA Neck Exam Date/Time: 03/22/2024 14:12 EDT Reason for Exam: TIA Report IMPRESSION: NO FLOW-LIMITING STENOSIS, EVIDENCE OF DISSECTION, OR OTHER ACUTE FINDINGS IDENTIFIED. EXAM: CTA Head, CTA Neck DATE: 03/22/2024 1:44 PM CLINICAL HISTORY: TIA. COMPARISON: Noncontrast head CT from earlier 03/22/2024 1:44 PM. TECHNIQUE: Spiral enhanced images were obtained of the neck after the infusion of approximately 100 mL of Isovue 370 contrast with CTA protocol. Luminal narrowings are estimated by NASCET criteria. Routine and volume rendered images were obtained on a three-dimensional workstation. All CT scans at this facility use dose modulation, iterative reconstruction, and/or weight based dosing when appropriate to reduce radiation dose to as low as reasonably achievable. FINDINGS: Mild to moderate predominantly calcified atherosclerotic plaquing of the right carotid bulb results in approximately 30% stenosis, by NASCET criteria. Mild predominantly noncalcified atherosclerotic plaquing of the left carotid bulb heterogeneous does not significantly narrow the lumen. Both vertebral arteries are widely patent and equivalent in caliber in the neck and approximately 2 to 3 mm. Mild calcified plaquing is present in the cavernous carotids There is no other significant atherosclerotic plaquing, evidence of dissection, or other acute findings identified. Moderate degenerative changes at the C5-C6 level result in mild to moderate central spinal stenosis and neural foraminal narrowing, greater on the right. Minimal degenerative changes elsewhere. The visualized apices are clear Report Ordering Provider: Ghada VALDOVINOS FINAL REPORT Dictated: 03/22/2024 2:47 pm Jerrod Alexander MD Signed (Electronic Signature): 03/22/2024 2:47 pm Signed by: Jerrod Alexander MD Transcribed by: HARRY Technologist: JOSE Technical Comments GFR (mL/min/1/73m2) >60 Contrast: Isovue 370 Contrast amount in ml's: 100 Normal [facility] Capillary Glucose POCon 03-03 Glucose [Mass/Vol] 354 mg/dL High 55-99 [facility] Comment on above: Result Comment: Carter SERRANO Performed By: #### 2 [id number] ####[facility] [address] [place] [address] Glucose [Mass/Vol] 52 mg/dL Low 55-99 [facility] Comment on above: Result Comment: Carter SERRANO Performed By: #### 2 [id number] #### [facility] [address] [place] [address] Discharge Note-Nursingon Discharge Note-Nursing Discharge Note-Nursing CARI HALE Terrie :1965 Visit Date:03/21/2024 Inpatient Discharge Instructions Your Care Team Admitting Physician - Lee Martinez DO Consulting Physician - Jesse Carr MD Reason for Your Visit weakness, stroke symptoms, since resolved Your Diagnosis TIA (transient ischemic attack) Type 2 diabetes mellitus with diabetic neuropathy HTN Hyperlipidemia PAD (peripheral artery disease) CAD Emphysema/COPD Mood disorder Alcohol abuse History of thyroidectomy Smoker Diabetes mellitus with hypoglycemia Potential stroke Weakness or fatigue Tests Performed Hemoglobin A1c -- Results Pending -- Lipid Panel -- Results Pending -- Brain MRI w/o Contrast CT Head or Brain w/o Contrast CTA Neck Echo w/ Saline Bubbles -- Results Pending -- MRA Head w/o Contrast XR Chest Single View Please visit your patient portal for your results or contact your primary care physician. This Is Your Medications List Misc Prescription (Medtronic Insulin Pump 770G) Misc Prescription (One Touch Delica Plus Lancets 33G) Misc Prescription (One Touch Delica Plus Test Strips) aspirin (aspirin 81 mg Oral EC Tab) buPROPion (buPROPion 150 mg/24 hours XL Tab) budesonide (budesonide 3 mg oral delayed release capsule) clopidogrel (clopidogrel 75 mg Tab) ergocalciferol (Vitamin D 50,000 intl units (1.25 mg) oral capsule) estradiol (estradiol 2 mg Tab) hydrOXYzine (hydrOXYzine hydrochloride 25 mg Tab) insulin aspart (NovoLOG 100 units/mL injectable solution) lamotrigine (lamotrigine 100 mg Tab) levothyroxine (levothyroxine 150 mcg (0.15 mg) Tab) progesterone (progesterone 100 mg oral capsule) propranolol (propranolol 20 mg Tab) rosuvastatin (rosuvastatin 5 mg Tab) Procedure History Caudal CHAVO (01/17/2018), caudal CHAVO (12/06/2017), Facet joint nerve block (01/17/2014), right small trigger finger release (07/17/2013), Injection of nerve root of lumbar spine using fluoroscopic guidance (03/27/2013), Epidural injection of lumbar spine using fluoroscopic guidance (12/23/2012), Epidural injection of lumbar spine using fluoroscopic guidance (07/25/2012), Angioplasty, Colonoscopy, History of back surgery....., Release of carpal tunnel for nerve decompression, Release of trigger finger, Thyroidectomy. Discharge Vitals Temperature (Axillary) 36.7 ?C Heart Rate (Monitored) 86 Respiratory Rate 20 Blood Pressure 104/68 Height 157.8 cm Weight 57.4 kg BMI 23.05 What to do next Instructions From Your Doctor Event Name Event Result Discharge Activity Activity as tolerated Discharge Diet(s) Calorie Controlled- 1800 Calorie Diet Pending Diagnostic Test Results None Discharge Instructions work up is negative for stroke. MRI/MRA of the head both negative. CTA of the neck negative for blockage. Hypoglycemia is likely due to over coverage w/alcohol intake. Please eat diabetic diet and cover w/insulin stop /reduction with alcohol intact. New Follow Up Appointments after Discharge Follow Up with Bruno HANKS, SONIA Pichardo When: Within 2 to 4 weeks Where: [facility] [address]- Medications What How Much When Why Instructions Next Dose Unchanged aspirin (aspirin 81 mg Oral EC Tab) 1 Tablets By Mouth Every day 03/23/2024 Unchanged budesonide (budesonide 3 mg oral delayed release capsule) 3 Capsules By Mouth Every day 90 EA, 0 Refill(s), TAKE 3 CAPSULES BY MOUTH EVERY DAY Resume Unchanged buPROPion (buPROPion 150 mg/ 24 hours XL Tab) 1 Tablets By Mouth Every day 03/23/2024 Unchanged clopidogrel (clopidogrel 75 mg Tab) 1 Tablets By Mouth Every day 03/23/2024 Unchanged ergocalciferol (Vitamin D 50,000 intl units (1.25 mg) oral capsule) 50,000 International unit By Mouth Every week Resume Unchanged estradiol (estradiol 2 mg Tab) 1 Tablets By Mouth At bedtime Resume tonight at bedtime Unchanged hydrOXYzine (hydrOXYzine hydrochloride 25 mg Tab) 1 Tablets By Mouth 4 times a day as needed for for anxiety Resume as needed Unchanged insulin aspart (NovoLOG 100 units/ mL injectable solution) See instructions 35 units daily per pump. Dx E11.01 As directed Unchanged lamotrigine (lamotrigine 100 mg Tab) 1 Tablets By Mouth Every day 03/23/2024 Unchanged levothyroxine (levothyroxine 150 mcg (0.15 mg) Tab) See instructions TAKE 1 TABLET BY MOUTH EVERY DAY Resume 03/23/2024 Unchanged Misc Prescription (Medtronic Insulin Pump 770G) See instructions Diabetes mellitus type 1, uncontrolled as directed Unchanged Misc Prescription (One Touch Delica Plus Lancets 33G) See instructions Use as directed. Testing blood sugars 5+ times daily. DX: E11.69 Unchanged Misc Prescription (One Touch Delica Plus Test Strips) See instructions Use as directed. Testing blood sugars 5+ times daily. DX: E11.69 Unchanged progesterone (progesterone 100 mg oral capsule) 1 Capsules By Mouth Once a day (at bedtime) R (more content not included)... Normal [facility] ED Note-Physicianon 03-22-20 ED Note-Physician ED Note-Physician Basic Information Time Seen: Han Olivera M.D. 03/21/2024 13:49 Chief Complaint c/o weakness and unable to walk. pt states this happened 2 days ago, regained ability to walk yesterday, then this morning wasnt able to move limbs. presented to EMS with right facial droop and being combative and confused.. denies hx of stroke. History of Present Illness Patient is a 59-year-old female with a history of CAD, essential tremor, hypertension, hyperlipidemia, smoking, and diabetes who presents to the ED via EMS after an episode of right facial droop, confusion, and ataxia. Patient states she developed ataxia approximately 2 days ago in which she was able to crawl into her bed from the living room and sleep. She states yesterday she had no problems with ambulation. However today upon waking up she states that she felt paralyzed and unable to move her upper or lower extremities bilaterally. Patient states she laid in bed until she was able to call her via [employer] on her phone and scream for help. She states her then called EMS. Patient denies a history of strokes. At this time she denies any complaints. Per EMS, the patient had a blood sugar of 64 in which the patient was given oral glucose. Per blood sugar then improved to 140. On arrival to the ED the patient had a blood sugar of 83. Patient states she has not had anything to eat or drink today due to being unable to get out of bed. Review of Systems A 10 point review of systems is negative except as noted above. Medical and Surgical History: Reviewed and noted Social history: Lives at home Family History: Reviewed. Tobacco: Use Physical Exam Vitals & Measurements T: 36.9 ?C(Oral) HR: 101(Peripheral) RR: 18 BP: 108/68 SpO2: 99% HT: 158 cm WT: 58.5 kg BMI: 23.43 General: The patient appears well and in no apparent distress. Patient is resting comfortably on cart. Skin: Warm, dry, no pallor noted. Head: Normocephalic, atraumatic Neck: No JVD Eye: PERRLA, EOMI, visual field intact ENT: Moist mucus membranes Cardiovascular: Regular rate normal peripheral perfusion Respiratory: No respiratory distress no accessory muscle use no obvious audible wheezing Chest Wall: no deformity Musculoskeletal: normal ROM, no deformity, no swelling GI: Soft no obvious distention. No rebound or rigidity. No guarding. No tenderness. Neurological: A&O moves all extremities equal strength and symmetry, upper extremity tremor bilaterally which is baseline, no focal neurological deficits Psychiatric: Cooperative and appropriate Medical Decision Making Patient is a 59-year-old female with a history of CAD, hypertension, hyperlipidemia, smoking, and diabetes who presents to the ED via EMS following an episode of right facial droop, confusion, and ataxia. Patient's last known well was 1300. NIH stroke scale is 0. Patient had a blood sugar of 64 while in route via EMS in which she received oral glucose. Her glucose then improved to 140. On arrival to the ED she is a glucose of 83. EMS reported that the patient had a history of TIAs, however, the patient states this is not true. On exam there are no focal neurological deficits. EKG shows sinus tachycardia with a rate of [address] head/brain shows no acute intracranial processes, but it does show mild generalized cerebral volume loss with mild patchy supratentorial white matter changes most consistent with chronic small vessel ischemic disease. Chest x-ray shows no acute cardiopulmonary abnormalities. Lab work is reviewed. Patient is a calcium of 8.5 and an alk phos of 106 but is otherwise unremarkable. On reevaluation patient has a blood glucose of 281. Her insulin pump was removed by EMS in which patient put the pump back on following this reading. I discussed the case with the hospitalist who is admitting the patient for a TIA. Assessment/Plan 1. TIA (transient ischemic attack) (G45.9: Transient cerebral ischemic attack, unspecified) Ordered: ED Physician consult Hospitalist for continued care Disposition Plan Patient Discharge Condition stable Discharge Disposition Admit Discharge Prescription List Prescriptions No active prescription medications Follow-up No qualifying data available Attestation Patient seen and evaluated by the physician speech language pathologist assistant. Attending physician was present in the emergency department and supervised care. This visit was performed by both the physician and an APC. I performed all aspects of the MDM as documented. This report was transcribed using voice recognition software. Every effort was made to ensure accuracy, however, inadvertently computerized pharmacy operations coordinator mistakes may be present. Appropriate healthcare PPE was used in evaluating this patient. The patient was placed in a mask. The healthcare provider was wearing mask, gloves, and utilizing proper hand hygiene. All equipment was properly cleansed. I performed a substantive part of the MDM during the patient?s E/M visit. (more content not included)... Normal [facility] Comment on above: Result Comment: Elec tronically Signed By: Taylor García PA-C\.br\Date and Time Signed: 03/21/24 18:42 EDT\.br\Electronically Co-Signed By: Han Olivera M.D.\.br\Date and Time Co-Signed: 03/22/24 13:39 EDT Extra Alexander 03-22-2024 WB Tube Collected Yes Invalid Interpretation Code [facility] Comment on above: Performed By: #### 1 [id number] #### [facility] [address] [place] [id number] Free T4on 03-22-2024 Free T4 [Mass/Vol] 1.32 ng/dL Normal 0.58-1.64 [facility] Comment on above: Performed By: #### 2 [id number] #### [facility] [address] [place] [id number] Inpatient Clinical Summaryon 03-22-2024 Inpatient Clinical Summary Inpatient Clinical Summary [address] [address] Clinical Summary Person Information: Name: CARI HALE Age: 59 Years : 1965 Sex: Female PCP: Frida Khan Marital Status: Race: White Ethnicity: Non- or Language: Nauruan Visit Id: Visit Reason: Weakness or fatigue; Potential stroke; STROKE Speciality: Acuity: Enc Type: Observation Med Service: Medical Arrival: 03/21/2024 13:41:38 Discharge: Dispo Type: Admitted as IP to this Hosp Address: [address] [place] [phone] Provider Notes: Diagnosis: 1:TIA (transient ischemic attack); 2:Type 2 diabetes mellitus with diabetic neuropathy; 3:HTN; 4:Hyperlipidemia; 5:PAD (peripheral artery disease); 6:CAD; 7:Emphysema/COPD; 8:Mood disorder; 9:Alcohol abuse; 10:History of thyroidectomy; 11:Smoker; Diabetes mellitus with hypoglycemia Problems Active Tremors of nervous system Pelvic pain Post-menopause bleeding Abnormal kidney function Abnormal CBC Ulcerative colitis, chronic B12 deficiency Dehydration Type 2 diabetes mellitus with hyperlipidemia Insulin long-term use Type 2 diabetes mellitus with diabetic neuropathy Loose stools History of colon polyps Anxiety History of recent fall Other problems related to lifestyle BMI 23.0-23.9, adult Screening for colon cancer Breast cancer screening by mammogram Smoker Chronic hoarseness Lumbar back pain with radiculopathy affecting lower extremity Tremor Emphysema/COPD Other specified hypothyroidism Mild major depression BMI 24.0-24.9, adult Vitamin D deficiency Hyperlipidemia Osteoarthritis CAD HTN Smoking Status: Current Every Day Smoker Functional Status: Sensory Deficits: History of Falls: Mobility Assistance Prior to Admission: Independent ADLs: Independent Current Level of Assistance for Self-Care/Mobility: Cognitive Status: Oriented x 3 Allergies penicillins Lipitor Vicodin pravastatin Measurements: Height: 157.8 cm Weight: 57.4 kg Blood Pressure: 104 mmHg / 68 mmHg BMI: 23.05 kg/m2 Procedures No Procedures Documented Immunizations No Immunizations Documented This Visit Final Med List: aspirin (aspirin 81 mg Oral EC Tab) 1 Tablets By Mouth every day. budesonide (budesonide 3 mg oral delayed release capsule) 3 Capsules By Mouth every day. 90 EA, 0 Refill(s), TAKE 3 CAPSULES BY MOUTH EVERY DAY. buPROPion (buPROPion 150 mg/24 hours XL Tab) 1 Tablets By Mouth every day. clopidogrel (clopidogrel 75 mg Tab) 1 Tablets By Mouth every day. ergocalciferol (Vitamin D 50,000 intl units (1.25 mg) oral capsule) 50,000 International unit By Mouth every week. Refills: 3. estradiol (estradiol 2 mg Tab) 1 Tablets By Mouth at bedtime. Refills: 3. hydrOXYzine (hydrOXYzine hydrochloride 25 mg Tab) 1 Tablets By Mouth 4 times a day as needed for anxiety. Refills: 3. insulin aspart (NovoLOG 100 units/mL injectable solution) 35 units daily per pump. Dx E11.01. Refills: 5. lamotrigine (lamotrigine 100 mg Tab) 1 Tablets By Mouth every day. levothyroxine (levothyroxine 150 mcg (0.15 mg) Tab) TAKE 1 TABLET BY MOUTH EVERY DAY. Refills: 1. Misc Prescription (Medtronic Insulin Pump 770G) as directed. Refills: 0. Misc Prescription (One Touch Delica Plus Lancets 33G) Use as directed. Testing blood sugars 5+ times daily. DX: E11.69. Refills: 5. Misc Prescription (One Touch Delica Plus Test Strips) Use as directed. Testing blood sugars 5+ times daily. DX: E11.69. Refills: 5. progesterone (progesterone 100 mg oral capsule) 1 Capsules By Mouth once a day (at bedtime). Refills: 3. propranolol (propranolol 20 mg Tab) 1 Tablets By Mouth 2 times a day. Refills: 3. rosuvastatin (rosuvastatin 5 mg Tab) 1 Tablets By Mouth every day. Refills: 1. Care Team Members: Attending Physician: Lee Martinez DO Consulting Physician: Jesse Carr MD Referring Physician: Follow up: With: Address: When: Bruno HANKS, [place] [phone] Within 2 to 4 weeks Patient Education Information: Alcohol Misuse and Dependence Information, Adult; High Cholesterol; Type 2 Diabetes Mellitus, Diagnosis, Adult; Hypertension, Adult, [id number]; Smoking Tobacco Information, Adult; Core Measures Transient Ischemic Attack (TIA) [facility] ([facility]); Core Measures: Stroke (Cerebrovascular Accident) [facility], (Custom) [facility] Inpatient Patient Summaryon 03-22-2024 Inpatient Patient Summary Inpatient Patient Summary [address] [address] Patient Discharge Instructions PERSON INFORMATION Name: CARI HALE Date of : 1965 Current Date: 03/22/2024 16:19:37 PHYSICIANS Admitting Physician: Lee Martinez DO Primary Care Physician: Frida Khan PCP Comment: Discharge Diagnosis: 1:TIA (transient ischemic attack); 2:Type 2 diabetes mellitus with diabetic neuropathy; 3:HTN; 4:Hyperlipidemia; 5:PAD (peripheral artery disease); 6:CAD; 7:Emphysema/COPD; 8:Mood disorder; 9:Alcohol abuse; 10:History of thyroidectomy; 11:Smoker; Diabetes mellitus with hypoglycemia Condition at Discharge: Stable CARI HALE has been given the following list of follow-up instructions, prescriptions, and patient education materials: PATIENT FOLLOW-UP INFORMATION Diet: Calorie Controlled- 1800 Calorie Diet Discharge Activity: Activity as tolerated Discharge Restrictions: Wound Care Instructions: Remove Your Dressing In Days Call Your Doctor For: IF UNABLE TO CONTACT YOUR PHYSICIAN AND YOU FEEL IT IS AN EMERGENCY, GO TO THE NEAREST EMERGENCY ROOM OR CALL 911 Home Treatment: Devices/Equipment: Infusion pump Special Services: Additional Instructions: work up is negative for stroke. MRI/MRA of the head both negative. CTA of the neck negative for blockage. Hypoglycemia is likely due to over coverage w/alcohol intake. Please eat diabetic diet and cover w/insulin stop /reduction with alcohol intact. Primary Care Physician to provide the following pending test results: None Follow up: With: Address: When: Bruno HANKS, [place] [address] [place] [address] Within 2 to 4 weeks In the event that this physician does not participate in your insurance network, please consult with your insurance company to find a nearby participating provider. Comment: GEOFFREY Danielle KRIS E, have received the attached patient education materials/instruction s and have verbalized understanding: Patient Signature Date Clinican/Nurse Signature Date HERE ARE THE MEDICATION CHANGES THAT OCCURRED DURING YOUR HOSPITAL STAY Medications to Continue with No Changes Other Medications aspirin (aspirin 81 mg Oral EC Tab) 1 Tablets By Mouth every day. Last Dose: ____Next Dose: ____ budesonide (budesonide 3 mg oral delayed release capsule) 3 Capsules By Mouth every day. 90 EA, 0 Refill(s), TAKE 3 CAPSULES BY MOUTH EVERY DAY. Last Dose: ____Next Dose: ____ buPROPion (buPROPion 150 mg/24 hours XL Tab) 1 Tablets By Mouth every day. Last Dose: ____Next Dose: ____ clopidogrel (clopidogrel 75 mg Tab) 1 Tablets By Mouth every day. Last Dose: ____Next Dose: ____ ergocalciferol (Vitamin D 50,000 intl units (1.25 mg) oral capsule) 50,000 International unit By Mouth every week. Refills: 3. Last Dose: ____Next Dose: ____ estradiol (estradiol 2 mg Tab) 1 Tablets By Mouth at bedtime. Refills: 3. Last Dose: ____Next Dose: ____ hydrOXYzine (hydrOXYzine hydrochloride 25 mg Tab) 1 Tablets By Mouth 4 times a day as needed for anxiety. Refills: 3. Last Dose: ____Next Dose: ____ insulin aspart (NovoLOG 100 units/mL injectable solution) 35 units daily per pump. Dx E11.01. Refills: 5. Last Dose: ____Next Dose: ____ lamotrigine (lamotrigine 100 mg Tab) 1 Tablets By Mouth every day. Last Dose: ____Next Dose: ____ levothyroxine (levothyroxine 150 mcg (0.15 mg) Tab) TAKE 1 TABLET BY MOUTH EVERY DAY. Refills: 1. Last Dose: ____Next Dose: ____ Misc Prescription (Medtronic Insulin Pump 770G) as directed. Refills: 0. Last Dose: ____Next Dose: ____ Misc Prescription (One Touch Delica Plus Lancets 33G) Use as directed. Testing blood sugars 5+ times daily. DX: E11.69. Refills: 5. Last Dose: ____Next Dose: ____ Misc Prescription (One Touch Delica Plus Test Strips) Use as directed. Testing blood sugars 5+ times daily. DX: E11.69. Refills: 5. Last Dose: ____Next Dose: ____ progesterone (progesterone 100 mg oral capsule) 1 Capsules By Mouth once a day (at bedtime). Refills: 3. Last Dose: ____Next Dose: ____ propranolol (propranolol 20 mg Tab) 1 Tablets By Mouth 2 times a day. Refills: 3. Last Dose: ____Next Dose: ____ rosuvastatin (rosuvastatin 5 mg Tab) 1 Tablets By Mouth every day. Refills: 1. Last Dose: (more content not included)... Normal [facility] Interdisciplinary Note - Edy e Manageron 03-22-2024 Interdisciplinary Note - Financial Professional Interdisciplinary Note - Financial Professional Patient is drowsy does not stay awake enough to speak to CRM. Unable at this time to assess DC needs Patient is here as observation for possible stroke. Patient is assigned to [facility], see notes. Patient has neurology on case. Patient will get a MRI and MRA. Patient is pending PT recs. CRM will attempt to see patient later today or 03/23 CRM following CRM back to room. Patient is now awake, alert and oriented. Patient is from home alone. Her Ex spouse still helps and is with patient daily. His name is Jesse and he is her ride at [place]. Patient verified PCP as Dr Diallo, dme and insurance. Patient is here as observation for possible stroke. Patient is assigned to [facility], see notes. Patient has neurology on case. Patient will get a MRI and MRA. Patient is pending PT recs. Patient declines at this time DC needs for DME, HH or PM. If she changes her mind for needs. She will call [facility]. Patient was provided contact info, susanna board updated. CRM Following Normal [facility] Comment on above: Result Comment: Elec tronically Signed By: Rose Lucio\.br\Date and Time Signed: 03/22/24 15:08 EDT Interdisciplinary Note - Soc ial Workeron 03-22-2024 Interdisciplinary Note - Television Engineering Teacher Interdisciplinary Note - Television Engineering Teacher There was a system generated request for a SW to address a positive alcohol assessment. This SW spoke with the patient that shared that she consumes one bottle and a couple of glasses of wine daily. She did not want the SW to contact lets get real . The SW provided her with a resource list and she stated that she would contact lets get real when she returns home. SW reviewed the risks of her consumption and she voiced understanding. Normal [facility] MRA Head w/o Contraston 03-03 MRA Head w/o Contrast Exam Date/Time: 03/22/2024 14:04 EDT Reason for Exam: Stroke Report IMPRESSION: NEGATIVE LIMITED HEAD MRA. EXAM: MRA Head w/o Contrast DATE: 03/22/2024 1:05 PM CLINICAL HISTORY: Stroke. Weakness and falls. COMPARISON: Head MRI 03/22/2024. TECHNIQUE: Three-dimensional [id number] MRA of the intracranial arterial circulation was performed. Routine and volume rendered images were obtained on a three-dimensional workstation. Narrowings are estimated by NASCET criteria. FINDINGS: Motion artifact limits detail. There is no significant stenosis, branch occlusion, intracranial aneurysm, or developmental vascular variations of concern identified. Ordering Provider: Ghada VALDOVINOS FINAL REPORT Dictated: 03/22/2024 2:29 pm Jerrod Alexander MD Signed (Electronic Signature): 03/22/2024 2:29 pm Signed by: Jerrod Alexander MD Transcribed by: HARRY Technologist: TRACY [facility] MRI Brain w/o Contraston MRI Brain w/o Contrast Exam Date/Time: 03/22/2024 14:04 EDT Reason for Exam: CVA Report IMPRESSION: NO ACUTE INTRACRANIAL PROCESS OR SIGNIFICANT CHANGE FROM 03/12/2020 IDENTIFIED. EXAM: MRI Brain w/o Contrast DATE: 03/22/2024 1:05 PM CLINICAL HISTORY: CVA. Weakness and falls. COMPARISON: Head CT 03/21/2024 and head MRI 03/12/2020. TECHNIQUE: Multiplanar MR imaging of the head was performed without contrast. FINDINGS: Acute Change: There is no evidence of restricted diffusion to suggest an acute infarct. Hemorrhage: No evidence of intracranial hemorrhage. Mass Lesion/ Mass Effect: No evidence of an intracranial mass or extra-axial fluid collection. No significant mass effect. Chronic Change: Two very small cysts within the inferior left cerebellar hemisphere probably a remote infarcts. Minimal patchy chronic white matter changes are again noted in the yanet. Parenchyma: Mild generalized volume loss. Ventricles: Expected ex vacuo ventricular dilatation. Skull Base: Hypothalamic and pituitary region are grossly normal. Craniocervical junction is normal. No significant marrow replacement process. Vasculature: Major intracranial arterial structures, and dural venous sinuses show typical flow void, suggesting patency. Other: Moderate mucosal thickening within the right maxillary sinus. Other sinuses and mastoid air cells are essentially clear. The orbits are unremarkable. The extracranial soft tissues are unremarkable. Report Ordering Provider: Ghada VALDOVINOS FINAL REPORT Dictated: 03/22/2024 2:28 pm Jerrod Alexander MD Signed (Electronic Signature): 03/22/2024 2:28 pm Signed by: Benjamin HANKS, Jerrod Silverio Transcribed by: HARRY Technologist: TRACY Normal [facility] TSH With T4fr Reflexon 03-22 TSH Qn 0.01 m[IU]/L Low 0.34-5.60 [facility] Comment on above: Performed By: #### 1 [id number] #### [facility] [address] [place] [address] BB Draw & Holdon 03-21-2024 BB D&H Sample drawn for Blood Ba Normal [facility] Comment on above: Performed By: #### 1 [id number] #### [facility] [address] [place] [address] CBC w/ Auto Diffon 4 Basophils/100 WBC (Bld) 0.8 % Normal 0.0-2.0 [facility] Comment on above: Performed By: #### 2 [id number] #### [facility] [address] [place] [address] Basophils/Leukocytes Auto (Bld) [Pure # fraction] 0.1 E9/L Normal 0.0-0.2 [facility] Comment on above: Performed By: #### 2 [id number] #### [facility] [address] [place] [address] Eosinophils (Bld) [#/Vol] 0.2 E9/L Normal 0.0-0.5 [facility] Comment on above: Performed By: #### 2 [id number] #### [facility] [address] [place] [address] Eosinophils/100 WBC (Bld) 2.5 % Normal 0.0-8.0 [facility] Comment on above: Performed By: #### 2 [id number] #### [facility] [address] [place] [address] Erythrocyte distribution width (RBC) [Ratio] 13.7 % Normal 10.9-14.2 [facility] Comment on above: Performed By: #### 2 [id number] #### [facility] [address] [place] [address] Hematocrit (Bld) [Volume fraction] 39.5 % Normal 34.0-46.0 [facility] Comment on above: Performed By: #### 2 [id number] #### [facility] [address] [place] [address] Hemoglobin (Bld) [Mass/Vol] 13.0 g/dL Normal 12.0-16.0 [facility] Comment on above: Performed By: #### 2 [id number] #### [facility] [address] [place] [address] Lymphocytes (Bld) [#/Vol] 2.1 E9/L Normal 1.0-4.0 [facility] Comment on above: Performed By: #### 2 [id number] #### [facility] [address] [place] [address] Lymphocytes/100 WBC (Bld) 22.4 % Normal 14.0-50.0 [facility] Comment on above: Performed By: #### 2 [id number] #### [facility] [address] [place] [address] MCH (RBC) [Entitic mass] 32.8 pg Normal 27.0-34.0 [facility] Comment on above: Performed By: #### 2 [id number] #### [facility] [address] [place] [address] MCHC (RBC) [Mass/Vol] 32.9 g/dL Normal 31.4-36.0 [facility] Comment on above: Performed By: #### 2 [id number] #### [facility] [address] [place] [address] MCV (RBC) [Entitic vol] 99.8 fL Normal 80.0-100.0 [facility] Comment on above: Performed By: #### 2 [id number] #### [facility] [address] [place] [address] Monocytes (Bld) [#/Vol] 1.0 E9/L Normal 0.2-1.0 [facility] Comment on above: Performed By: #### 2 [id number] #### [facility] [address] [place] [address] Neutrophils (Bld) [#/Vol] 6.1 E9/L Normal 2.0-7.5 [facility] Comment on above: Performed By: #### 2 [id number] #### [facility] [address] [place] [address] Neutrophils/100 WBC (Bld) 63.7 % Normal 36.0-75.0 [facility] Comment on above: Performed By: #### 2 [id number] #### [facility] [address] [place] [address] Platelet mean volume (Bld) [Entitic vol] 7.9 fL Normal 6.4-10.8 [facility] Comment on above: Performed By: #### 2 [id number] #### [facility] [address] [place] [address] Platelets (Bld) [#/Vol] 304.0 E9/L Normal 150.0-500.0 [facility] Comment on above: Performed By: #### 2 [id number] #### [facility] [address] [place] [address] RBC (Bld) [#/Vol] 4.0 E12/L Low 4.3-5.9 [facility] Comment on above: Performed By: #### 2 [id number] #### [facility] [address] [place] [address] WBC corrected for nucl RBC Auto (Bld) [#/Vol] 9.6 E9/L Normal 4.0-11.0 [facility] Comment on above: Performed By: #### 2 [id number] #### [facility] [address] [place] [address] CHEMISTRYOrdered By: Dhiraj DUMAS User on 03-21-2024 Glucose [Mass/Vol] 150 mg/dL High 55 - 99 mg/dL [facility] POC Subsection POC Device SN [id number] Invalid Interpretation Code [facility] POC Subsection POC User ID [id number] Invalid Interpretation Code [facility] POC Subsection POC Username DULCE MARIA BERRY Invalid Interpretation Code [facility] POC Subsection CHEMISTRYOrdered By: SYSTEM SYSTEM on 03-21-2024 Albumin [Mass/Vol] 3.4 g/dL Normal 3.3 - 5.0 gm/dL [facility] Albumin/Globulin [Mass ratio] 1.4 {ratio} Normal 1.1 - 2.2 [facility] ALP [Catalytic activity/Vol] 106 [iU]/d High 21 - 98 Int._Unit/L [facility] ALT No additional P-5'-P [Catalytic activity/Vol] 17 [iU]/d Normal 6 - 46 Int._Unit/L [facility] Anion gap [Moles/Vol] 15 mmol/L Normal 6 - 16 mEq/L R [facility] AST [Catalytic activity/Vol] 21 [iU]/d Normal 5 - 43 Int._Unit/L [facility] Bilirubin [Mass/Vol] 0.5 mg/dL Normal 0.0 - 1 .1 mg/dL [facility] Calcium [Mass/Vol] 8.5 mg/dL Low 8.9 - 11. 1 mg/dL [facility] Chloride [Moles/Vol] 105 mmol/L Normal 101 - 1 11 mmol/L [facility] CO2 [Moles/Vol] 24 mmol/L Normal 21 - 31 mmol/L [facility] Creatinine [Mass/Vol] 0.7 mg/dL Normal 0.5 - 1.3 mg/dL [facility] eGFR 99 mL/min/1.73 m2 Normal >=59mL/min /1 .73 m2 [facility] Ethanol Lvl mg/dL Normal <=11mg/dL [facility] Globulin (S) [Mass/Vol] 2.5 g/dL Normal 1.4 - 4.0 gm/dL [facility] Glucose [Mass/Vol] 112 mg/dL Normal 55 - 199 mg/dL [facility] Potassium [Moles/Vol] 4.3 mmol/L Normal 3.5 - 5.3 mmol/L [facility] Protein [Mass/Vol] 5.9 g/dL Low 6.0 - 7.8 gm/dL [facility] Sodium [Moles/Vol] 140 mmol/L Normal 135 - 145 mmol/L [facility] Troponin HS 3.50 pg/mL Low 10.10 - 27.10 pg/mL [facility] Comment on above: Interpretive Data: T he 95% CI (Confidence Interval) PPV (Positive Predictive Value) for myocardial infarction in females is 38 pg/mL, in males 51 pg/mL. The results should be used in conjunction with clinical conditions of myocardial infarction. (Access High Sensitivity Troponin I Instructions For Use, Pina [place], March 2018) Urea nitrogen [Mass/Vol] 7 mg/dL Normal 5 - 21 mg/dL [facility] Urea nitrogen/Creatinine [Mass ratio] 10 mg/mg Normal 10 - 20 [facility] CMPon 03-21-2024 Albumin [Mass/Vol] 3.4 g/dL Normal 3.3-5.0 [facility] Comment on above: Performed By: #### 2 [id number] #### [facility] [address] [place] [address] Albumin/Globulin (S) [Mass conc ratio] 1.4 Normal 1.1-2.2 [facility] Comment on above: Performed By: #### 2 [id number] #### [facility] [address] [place] [address] ALP [Catalytic activity/Vol] 106 Int._Unit/L High 21-98 [facility] Comment on above: Performed By: #### 2 [id number] #### [facility] [address] [place] [address] ALT No additional P-5'-P [Catalytic activity/Vol] 17 Int._Unit/L Normal 6-46 [facility] Comment on above: Performed By: #### 2 [id number] #### [facility] [address] [place] [address] Anion gap [Moles/Vol] 15 mmol/L Normal 6-16 [facility] Comment on above: Performed By: #### 2 [id number] #### [facility] [address] [place] [address] AST [Catalytic activity/Vol] 21 Int._Unit/L Normal 5-43 [facility] Comment on above: Performed By: #### 2 [id number] #### [facility] [address] [place] [address] Bilirubin [Mass/Vol] 0.5 mg/dL Normal 0.0-1.[address] [facility] Comment on above: Performed By: #### 2 [id number] #### [facility] [address] [place] [address] Calcium [Mass/Vol] 8.5 mg/dL Low 8.9-11.1 [facility] Comment on above: Performed By: #### 2 [id number] #### [facility] [address] [place] [address] Chloride [Moles/Vol] 105 mmol/L Normal 101-[address] [facility] Comment on above: Performed By: #### 2 [id number] #### [facility] [address] [place] [address] CO2 [Moles/Vol] 24 mmol/L Normal 21-31 [facility] Comment on above: Performed By: #### 2 737209 #### [facility] [address] [place] [address] Creatinine [Mass/Vol] 0.7 mg/dL Normal 0.5-1.3 [facility] Comment on above: Performed By: #### 2 [id number] #### [facility] [address] [place] [address] Globulin (S) [Mass/Vol] 2.5 g/dL Normal 1.4-4.0 [facility] Comment on above: Performed By: #### 2 [id number] #### [facility] [address] [place] [address] Glucose [Mass/Vol] 112 mg/dL Normal 55-199 [facility] Comment on above: Performed By: #### 2 [id number] #### [facility] [address] [place] [address] Potassium [Moles/Vol] 4.3 mmol/L Normal 3.5-5.3 [facility] Comment on above: Performed By: #### 2 [id number] #### [facility] [address] [place] [address] Protein [Mass/Vol] 5.9 g/dL Low 6.0-7.8 [facility] Comment on above: Performed By: #### 2 [id number] #### [facility] [address] [place] [address] Sodium [Moles/Vol] 140 mmol/L Normal 135-145 [facility] Comment on above: Performed By: #### 2 [id number] #### [facility] [address] [place] [address] Urea nitrogen [Mass/Vol] 7 mg/dL Normal 5-21 [facility] Comment on above: Performed By: #### 2 [id number] #### [facility] [address] [place] [address] Urea nitrogen/Creatinine [Mass ratio] 10 No Units Normal 10-20 [facility] Comment on above: Performed By: #### 2 [id number] #### [facility] [address] [place] [address] COAGULATIONOrdered By: Nelida patel Logan on 03-21-2024 aPTT Coag (PPP) [Time] 27.5 s Normal 25.1 - 36.5 second(s) [facility] Comment on above: Interpretive Data: P arameter 15 days - 4 weeks 1 - 5 months 6 - 11 months 1 - 5 years 6 - 10 years 11 - 17 years PTT Mean: 35.4 (27.6-45.6) Mean: 33.5 (24.8-40.7) Mean: 32.4 (25.1-40.7) Mean: 31.6 (24.0-39.2) Mean: 31.6 (26.9-38.7) Mean: 31.0 (24.6-38.4) Pediatric Reference ranges were obtained from a study by Shawn Alamo et al. prepared from 1437 samples obtained at 7 different centers using the same coagulation reagent and instrumentation as [facility]. Currently there are no coagulation studies available worldwide for children to 14 days, and no normal ranges. Heparin therapeutic range (represented by Anti-Factor Xa activity of 0.2 - 0.4 U/mL) corresponds to PTT of 56.6 - 109.0 sec. INR Coag (PPP) [Relative time] 0.92 {INR} Invalid Interpretation Code [facility] Comment on above: Interpretive Data: I NR results are specifically intended to assess patients stabilized on long-term Anticoagulation therapy suggested INR s Less Intensive Anticoagulation 2.0 3.0 Conventional Range 3.0 4.5 PT Coag (PPP) [Time] 10.3 s Normal 9.4 - 1 2.5 second(s) [facility] Comment on above: Interpretive Data: 1 5 days - 4 weeks 1 - 5 months 6 -11 months 1 5 years 6 10 years 11 -17 years Mean: 11.2 (9.5 12.6) Mean: 11.0 (9.7 12.8) Mean: 11.0 (9.8 13.0) Mean: 11.3 (9.9 13.4) Mean: 11.7 (10.0 14.6) Mean: 11.8 (10.0 - 14.1) Pediatric Reference ranges were obtained from a study by dulce Ling al. prepared from 1437 samples obtained at 7 different centers using the same coagulation reagent and instrumentation as [facility]. Currently there are no coagulation studies available worldwide for children to 14 days, and no normal ranges. CT Head or Brain w/o Contras ton 03-21-2024 CT Head or Brain w/o Contrast Exam Date/Time: 03/21/2024 13:49 EDT Reason for Exam: Neuro deficit, acute, stroke suspected;Stroke Report IMPRESSION: NO ACUTE INTRACRANIAL PROCESS IDENTIFIED. EXAM: CT Head or Brain w/o Contrast DATE: 03/21/2024 1:46 PM CLINICAL HISTORY: Stroke, Neuro deficit, acute, stroke suspected. COMPARISON: None available. TECHNIQUE: Routine. All CT scans at this facility use dose modulation, iterative reconstruction, and/or weight based dosing when appropriate to reduce radiation dose to as low as reasonably achievable. FINDINGS: There is no intracranial hemorrhage, mass effect, midline shift, extra-axial collection, evidence of hydrocephalus, skull fracture, or a recent ischemic infarct identified. Mild generalized cerebral volume loss is present, with mild patchy supratentorial white matter changes most consistent with chronic small vessel ischemic disease. Probably chronic of the partially visualized right maxillary sinus. Mild mucosal thickening of the right frontal sinus and adjacent ethmoid air cells. The mastoid air cells and other visualized paranasal sinuses are essentially clear. Ordering Provider: Logan Hooker FINAL REPORT Dictated: 03/21/2024 1:58 pm Jerrod Alexander MD Signed (Electronic Signature): 03/21/2024 1:58 pm Signed by: Jerrod Alexander MD Transcribed by: HARRY Technologist: WILLIE Torres Read 03/21/2024 01:55 pm EDT, Jerrod Alexander MD CT Brain: No acute intra or extra axial findings. Normal [facility] Capillary Glucose POCon 03-03 Glucose [Mass/Vol] 150 mg/dL High [facility] Comment on above: Performed By: #### 2 [id number] #### [facility] [address] [place] [address] Glucose [Mass/Vol] 281 mg/dL High [facility] Comment on above: Result Comment: Carter jarrell RN/ Performed By: #### 2 [id number] #### [facility] [address] [place] [address] ED Clinical Summaryon 2023 ED Clinical Summary ED Clinical Summary [address] [address] ED Clinical Summary Person Information Name: CARI HALE [place] Age: 59 Years : 1965 Sex: Female Language: Nauruan PCP: Frida Khan Marital Status: Visit Id: Visit Reason: Weakness or fatigue; Potential stroke; STROKE Speciality: Acuity: 2 Enc Type: Observation Med Service: Medical Arrival: 03/21/2024 13:41:38 Discharge: LOS: 000 05:49 Checkin: 03/21/2024 13:41:38 Checkout: 03/21/2024 19:30:55 Dispo Type: Admitted as IP to this [facility] EVENTS: Event Name Event Status Request Date/Time Start Date/Time Complete Date/Time Arrive Complete 03/21/2024 13:41:38 03/21/2024 13:41:38 03/21/2024 13:41:38 Document Home Meds Request 03/21/2024 13:41:38 Triage Complete 03/21/2024 13:41:38 03/21/2024 14:06:53 03/21/2024 14:06:53 Bed Assign Complete 03/21/2024 13:41:38 03/21/2024 13:41:38 03/21/2024 13:41:38 Dr Exam Complete 03/21/2024 13:41:38 03/21/2024 13:44:51 03/21/2024 13:44:51 RN Exam Complete 03/21/2024 13:41:38 03/21/2024 14:13:38 03/21/2024 14:13:38 RR Stroke Request 03/21/2024 13:42:45 NPO Request 03/21/2024 13:43:18 Pending Labs Complete 03/21/2024 13:43:18 03/21/2024 16:47:22 Blood Collect Request 03/21/2024 13:43:18 Lab Complete 03/21/2024 13:43:18 03/21/2024 15:30:29 Patient Care Request 03/21/2024 13:43:18 CT Complete 03/21/2024 13:43:18 03/21/2024 13:46:32 03/21/2024 13:49:36 X-Ray Complete 03/21/2024 13:43:18 03/21/2024 13:55:48 03/21/2024 14:21:59 RT Request 03/21/2024 13:43:18 EKG Complete 03/21/2024 13:44:09 03/21/2024 13:57:03 Registration Complete 03/21/2024 13:44:51 03/21/2024 14:08:45 03/21/2024 14:08:45 Dr Exam Complete 03/21/2024 13:49:26 03/21/2024 13:49:26 03/21/2024 13:49:26 Dr Exam Complete 03/21/2024 13:49:47 03/21/2024 13:49:47 03/21/2024 13:49:47 Pending Labs Complete 03/21/2024 13:56:01 03/21/2024 13:56:01 03/21/2024 15:30:29 Lab Complete 03/21/2024 13:56:01 03/21/2024 13:56:01 03/21/2024 15:30:29 Reg Complete Request 03/21/2024 14:08:45 Reg Bed Request Complete 03/21/2024 14:08:45 03/21/2024 14:08:45 03/21/2024 14:08:45 Fall Risk Request 03/21/2024 14:13:38 RR Stroke Request 03/21/2024 14:13:38 Pending Labs Complete 03/21/2024 14:20:15 03/21/2024 14:20:15 03/21/2024 14:20:15 Wet Read Request 03/21/2024 14:21:59 Pending Labs Complete 03/21/2024 16:17:58 03/21/2024 16:17:58 03/21/2024 16:17:58 Pending Labs Complete 03/21/2024 16:40:57 03/21/2024 16:40:57 03/21/2024 16:40:57 Consult Request 03/21/2024 17:01:02 Hospitalist Consult Request 03/21/2024 17:01:02 Bed Request Request 03/21/2024 17:50:05 Reg Bed Request Complete 03/21/2024 17:50:05 03/21/2024 17:56:22 03/21/2024 17:56:22 Admit Request 03/21/2024 17:50:05 Patient Care Request 03/21/2024 17:56:23 Patient Care Request 03/21/2024 17:56:23 Medicare Form Complete 03/21/2024 17:56:24 03/21/2024 18:15:29 Patient Care Request 03/21/2024 17:56:24 Patient Care Request 03/21/2024 17:56:24 Patient Care Request 03/21/2024 18:56:13 Pending Labs Request 03/21/2024 18:56:13 Meds Admin Request 03/21/2024 18:56:13 Consult Request 03/21/2024 18:56:25 MRI Request 03/21/2024 18:57:35 Meds Admin Request 03/21/2024 19:17:09 Patient Care Request 03/21/2024 19:17:09 Meds Admin Request 03/21/2024 19:20:30 ADDRESS: [address] [place] [id number] PHYS DOC NOTES: MEDICAL INFORMATION: Prescriptions Given: Medications to Continue with No Changes Other Medications aspirin (aspirin 81 mg Oral EC Tab) 1 Tablets By Mouth every day. budesonide (budesonide 3 mg oral delayed release capsule) 3 Capsules By Mouth every day. 90 EA, 0 Refill(s), TAKE 3 CAPSULES BY MOUTH EVERY DAY. buPROPion (buPROPion 150 mg/24 hours XL Tab) 1 Tablets By Mouth every day. clopidogrel (clopidogrel 75 mg Tab) 1 Tablets By Mouth every day. ergocalciferol (Vitamin D 50,000 intl units (1.25 mg) oral capsule) 50,000 International unit By Mouth every week. Refills: 3. estradiol (estradiol 2 mg Tab) 1 Tablets By Mouth at bedtime. Refills: 3. hydrOXYzine (hydrOXYzine hydrochloride 25 mg Tab) 1 Tablets By Mouth 4 times a day as needed for anxiety. Refills: 3. insulin aspart (NovoLOG 100 units/mL injectable solution) 35 units daily per pump. Dx E11.01. Refills: 5. lamotrigine (lamotrigine 100 mg Tab) 1 Tablets By Mouth every day. levothyroxine (levothyroxine 150 mcg (0.15 mg) Tab) TAKE 1 TABLET BY MOUTH EVERY DAY. Refills: 1. Misc Prescription (Medtronic Insulin Pump 770G) as directed. Refills: 0. Misc Prescription (One Touch Delica Plus Lancets 33G) Use as directed. Testing blood sugars 5+ times daily. DX: E11.69. Refills: 5. Misc Prescription (One Touch Delica Plus Test Strips) Use as directed. Testing blood sugars 5+ times daily. DX: E11.69. Refills: 5. progesterone (progesterone 100 mg oral capsule) 1 Capsules By Mouth once a day (at bedtime). Refills: 3. propranolol (propranolol 20 mg Tab) (more content not included)... Normal [facility] ED Patient Education Noteon 03-21-2024 ED Patient Education Note ED Patient Education Note Normal [facility] ED Patient Summaryon 024 ED Patient Summary ED Patient Summary [place] [id number] Patient Discharge Instructions Person Information Name: CARI HALE Age: 59 Years Arrival Date: 03/21/2024 13:41:38 Discharge Diagnosis: 1:TIA (transient ischemic attack); 2:Type 2 diabetes mellitus with diabetic neuropathy; 3:HTN; 4:Hyperlipidemia; 5:CAD; 6:Emphysema/COPD; 7:Mood disorder; 8:History of thyroidectomy; 9:Smoker Primary Care Physician: Frida Khan Provider Information Primary Provider: Han Olivera M.D. Advanced Senior Premium Auditor:Taylor García PA-C The exam and treatment you received in the Emergency Department were for an urgent problem and are not intended as complete care. It is important that you follow up with a doctor, nurse practitioner, or physician?s speech language pathologist assistant for ongoing care. If your symptoms become worse or you do not improve as expected and you are unable to reach your usual health care provider, you should return to the Emergency Department. We are available 24 hours a day. CARI HALE has been given the following list of patient education materials, prescriptions and follow-up instructions: Follow-up Instructions: In the event that this physician does not participate in your insurance network, please consult with your insurance company to find a nearby participating provider. Patient Education Materials: A MESSAGE TO ALL PATIENTS REGARDING OPIOIDS PRESCRIPTION OPIOIDS: WHAT YOU NEED TO KNOW Prescription opioids can be used to help relieve yiqhjygi-xe-zgzuhv pain and are often prescribed following a surgery or injury, or for certain health conditions. These medications can be an important part of the treatment but also come with serious risks. It is important to work with your healthcare provider to make sure you are getting the safest, most effective care. WHAT ARE THE RISKS AND SIDE EFFECTS OF OPIOID USE? Prescription opioids carry serious risks of addiction and overdose, especially with prolonged use. An opioid overdose, often marked by slowed breathing, can cause sudden . The use of prescription opioids can have a number of side effects as well, even when taken as directed: ? Tolerance?meaning you might need to take more of the medication for the same pain relief ? Physical dependence?meaning you have symptoms of withdrawal when a medication is stopped ? Increased sensitivity to pain ? Constipation ? Nausea, vomiting, and dry mouth ? Sleepiness and dizziness ? Confusion ? Depression ? Low levels of testosterone that can result in lower sex drive, energy, and strength ? Itching and sweating RISKS ARE GREATER WITH: ? History of drug misuse, substance use disorder, or overdose ? Mental health conditions (such as depression or anxiety) ? Sleep apnea ? Older age (65 years and older) ? Avoid alcohol while taking prescription opioids. Also, unless specifically advised by your health care provider, medications to avoid include: ? Benzodiazepines (such as Xanax or Valium) ? Muscle relaxants (such as Soma or Flexeril) ? Hypnotics (such as Ambien or Lunesta) ? Other prescription opioids KNOW YOUR OPTIONS Talk to your health care provider about ways to manage your pain that don?t involve prescription opioids. Some of these options may actually work better and have fewer risks and side effects. Options may include: ? Pain relievers such as acetaminophen, ibuprofen, and naproxen ? Some medication that are also used for depression or seizures ? Physical therapy and exercise ? Cognitive behavioral therapy, a psychological, goal-directed approach, in which patients learn how to modify physical, behavioral, and emotional triggers of pain and stress. IF YOU ARE PRESCRIBED OPIOIDS FOR PAIN: ? Never take opioids in greater amounts or more often than prescribed. ? Follow up with your primary health care provider. o Work together to create a plan on how to manage your pain. o Talk about ways to help manage your pain that don?t involve prescription opioids. o Talk about any and all concerns and side effects. ? Help prevent misuse and abuse o Never sell or share prescription opioids. o Never use another person?s prescription opioids. ? Store prescription opioids in a secure place and out of reach of others (this may include visitors, children, friends, and family). ? Safely dispose of unused prescription opioids: Find your community drug take-back program or your pharmacy mail-back program, or flush them down the toilet, following guidance from the Food and Drug Administration (www.fda.gov/Drugs/Re sourcesForYou). ? Visit www.cdc.gov/drugoverd ose to learn about the risks of opioids abuse and overdose. ? If you believe you may be struggling with addiction, tell your health care program resident and ask for guidance or call [facility] National Help (more content not included)... Normal [facility] Ethanolon 03-21-2024 Ethanol Lvl <10 Normal <=11 [facility] Comment on above: Performed By: #### 2 [id number] #### [facility] [address] [place] [address] Extra Sloan 03-21-2024 WB Tube Collected Yes Invalid Interpretation Code [facility] Comment on above: Performed By: #### 1 [id number] #### [facility] [address] [place] [address] HEMATOLOGYOrdered By: SYSTEM SYSTEM on 03-21-2024 Basophils/100 WBC (Bld) 0.8 % Normal 0.0 - 2.0 % Remisol Heme Basophils/Leukocytes Auto (Bld) [Pure # fraction] 0.1 E9/L Normal 0.0 - 0.2 E9/L Remisol Heme Eosinophils (Bld) [#/Vol] 0.2 E9/L Normal 0.0 - 0.5 E9/L Remisol Heme Eosinophils/100 WBC (Bld) 2.5 % Normal 0.0 - 8.0 % Remisol Heme Erythrocyte distribution width (RBC) [Ratio] 13.7 % Normal 10.9 - 14.2 % Remisol Heme Hematocrit (Bld) [Volume fraction] 39.5 % Normal 34.0 - 46.0 % Remisol Heme Hemoglobin (Bld) [Mass/Vol] 13.0 g/dL Normal 12.0 - 16.0 gm/dL Remisol Heme Lymphocytes (Bld) [#/Vol] 2.1 E9/L Normal 1.0 - 4.0 E9/L Remisol Heme Lymphocytes/100 WBC (Bld) 22.4 % Normal 14.0 - 50.0 % Remisol Heme MCH (RBC) [Entitic mass] 32.8 pg Normal 27.0 - 34.0 pg Remisol Heme MCHC (RBC) [Mass/Vol] 32.9 g/dL Normal 31.4 - 36.0 gm/dL Remisol Heme MCV (RBC) [Entitic vol] 99.8 fL Normal 80.0 - 100.0 fL Remisol Heme Monocytes (Bld) [#/Vol] 1.0 E9/L Normal 0.2 - 1.0 E9/L Remisol Heme Monocytes/100 WBC (Bld) 10.6 % Normal 4.0 - 14.0 % Remisol Heme Neutrophils (Bld) [#/Vol] 6.1 E9/L Normal 2.0 - 7.5 E9/L Remisol Heme Neutrophils/100 WBC (Bld) 63.7 % Normal 36.0 - 75.0 % Remisol Heme Platelet mean volume (Bld) [Entitic vol] 7.9 fL Normal 6.4 - 10.8 fL Remisol Heme Platelets (Bld) [#/Vol] 304.0 E9/L Normal 150.0 - 500.0 E9/L Remisol Heme RBC (Bld) [#/Vol] 4.0 E12/L Low 4.3 - 5.9 E12/L Remisol Heme WBC corrected for nucl RBC Auto (Bld) [#/Vol] 9.6 E9/L Normal 4.0 - 11.0 E9/L Remisol Heme PT & PTTon 03-21-2024 aPTT Coag (PPP) [Time] 27.5 second(s) Normal 25.1-36.5 [facility] Comment on above: Result Comment: Para meter 15 days - 4 weeks 1 - 5 months 6 - 11 months 1 - 5 years 6 - 10 years 11 - 17 years PTT Mean: 35.4 (27.6-45.6) Mean: 33.5 (24.8-40.7) Mean: 32.4 (25.1-40.7) Mean: 31.6 (24.0-39.2) Mean: 31.6 (26.9-38.7) Mean: 31.0 (24.6-38.4) Pediatric Reference ranges were obtained from a study by Shawn Alamo et al. prepared from 1437 samples obtained at 7 different centers using the same coagulation reagent and instrumentation as [facility]. Currently there are no coagulation studies available worldwide for children to 14 days, and no normal ranges. Heparin therapeutic range (represented by Anti-Factor Xa activity of 0.2 - 0.4 U/mL) corresponds to PTT of 56.6 - 109.0 sec. Performed By: #### 1 [id number] #### [facility] [address] [place] [address] INR Coag (PPP) [Relative time] 0.92 {INR} Invalid Interpretation Code [facility] Comment on above: Result Comment: INR results are specifically intended to assess patients stabilized on long-term Anticoagulation therapy suggested INR?s ?Less Intensive Anticoagulation? 2.0 ? 3.0 Conventional Range 3.0 ? 4.5 Performed By: #### 1 [id number] #### [facility] [address] [place] [address] PT Coag (PPP) [Time] 10.3 second(s) Normal 9.4-12.5 [facility] Comment on above: Result Comment: 15 d ays - 4 weeks 1 - 5 months 6 -11 months 1 ? 5 years 6 ? 10 years 11 -17 years Mean: 11.2 (9.5 ? 12.6) Mean: 11.0 (9.7 ? 12.8) Mean: 11.0 (9.8 ? 13.0) Mean: 11.3 (9.9 ? 13.4) Mean: 11.7 (10.0 ? 14.6) Mean: 11.8 (10.0 - 14.1) Pediatric Reference ranges were obtained from a study by Shawn Alamo et al. prepared from 1437 samples obtained at 7 different centers using the same coagulation reagent and instrumentation as [facility]. Currently there are no coagulation studies available worldwide for children to 14 days, and no normal ranges. Performed By: #### 1 [id number] #### [facility] [address] [place] [address] Pre-Arrival Noteon 4 Pre-Arrival Note Pre-Arrival Note Pre-Arrival Summary Name: , Current Date: 03/21/2024 13:41:57 EDT Gender: Date of : Age: Pre-Arrival Type: EMS ETA: 03/21/2024 14:06:00 EDT Primary Care Physician: Presenting Problem: STROKE Pre-Arrival User: Christen Aleman RN Referring Source: Location: PA Completion Date/Time: 03/21/2024 13:36:00 [facility] Emergency Department Pre-Hospital Report Form Vital Signs: Pre-Hospital Report: Treatment in Route: Response to Treatment: Misc. Issues: Normal [facility] Troponin 0 Hr.on 03-21-2024 Troponin HS 3.50 pg/mL Low 10.10-27.10 [facility] Comment on above: Result Comment: The 95% CI (Confidence Interval) PPV (Positive Predictive Value) for myocardial infarction in females is 38 pg/mL, in males 51 pg/mL. The results should be used in conjunction with clinical conditions of myocardial infarction. (Access High Sensitivity Troponin I Instructions For Use, [employer], March 2018) Performed By: #### 1 [id number] #### [facility] [address] [place] [address] UA with Cult Rflxon 03-21-20 24 Bilirubin Ql (U) Negative Normal Negative [facility] Comment on above: Performed By: #### 4 [id number] #### [facility] [address] [place] [address] Clarity (U) Clear Normal Clear [facility] Comment on above: Performed By: #### 4 [id number] #### [facility] [address] [place] [address] Color (U) Light-Yellow Normal Yellow [facility] Comment on above: Result Comment: Micr oscopic readings are only performed on those samples that meet specific criteria set forth by [facility]. Performed By: #### 4 [id number] #### [facility] [address] [place] [address] Glucose Ql (U) 4+ mg/dL Abnormal Negative [facility] Comment on above: Performed By: #### 4 [id number] #### [facility] [address] [place] [address] Hemoglobin Auto test strip (U) [Mass/Vol] Negative Normal Negative [facility] Comment on above: Performed By: #### 4 [id number] #### [facility] [address] [place] [address] Ketones Auto test strip Ql (U) 2+ mg/dL Abnormal Negative [facility] Comment on above: Performed By: #### 4 [id number] #### [facility] [address] [place] [address] Leukocyte esterase Auto test strip Ql (U) Negative Normal Negative [facility] Comment on above: Performed By: #### 4 [id number] #### [facility] [address] [place] [address] Nitrite Auto test strip Ql (U) Negative Normal Negative [facility] Comment on above: Performed By: #### 4 [id number] #### [facility] [address] [place] [address] pH (U) 5.5 [pH] Invalid Interpretation Code 5.0-9.0 [facility] Comment on above: Performed By: #### 4 [id number] #### [facility] [address] [place] [address] Protein Ql (U) Negative Normal Negative [facility] Comment on above: Performed By: #### 4 [id number] #### [facility] [address] [place] [address] Specific gravity (U) [Rel density] 1.020 Invalid Interpretation Code 1.005-1.030 [facility] Comment on above: Performed By: #### 4 [id number] #### [facility] [address] [place] [address] Urobilinogen (U) [Mass/Vol] Negative Normal Negative [facility] Comment on above: Performed By: #### 4 [id number] #### [facility] [address] [place] [address] Type of Urine collection method Clean Catch Normal [facility] Comment on above: Performed By: #### 4 [id number] #### [facility] [address] [place] [address] URINALYSISOrdered By: SYSTEM SYSTEM on 03-21-2024 Bilirubin Ql (U) Negative Normal Negativemg/ d L [facility] UA Auto SS Clarity (U) Clear (03/21/24 4:27 PM) Normal Clear [facility] UA Auto SS Color (U) Light-Yellow 1 (03/21/24 4:27 PM) Normal Yellow [facility] UA Auto SS Comment on above: Interpretive Data: M icroscopic readings are only performed on those samples that meet specific criteria set forth by [facility]. Glucose Ql (U) 4+ mg/dL Invalid Interpretation Code Negativemg/d L [facility] UA Auto SS Hemoglobin Auto test strip (U) [Mass/Vol] Negative Normal Negativemg/d L [facility] UA Auto SS Ketones Auto test strip Ql (U) 2+ mg/dL Invalid Interpretation Code Negativemg/d L [facility] UA Auto SS Leukocyte esterase Auto test strip Ql (U) Negative Normal NegativeLeu/ uL [facility] UA Auto SS Nitrite Auto test strip Ql (U) Negative Normal Negativemg/d L [facility] UA Auto SS pH (U) 5.5 *NA* (03/21/24 4:27 PM) Invalid Interpretation Code 5.0 - 9.0 [facility] UA Auto SS Protein Ql (U) Negative Normal Negativemg/d L [facility] UA Auto SS Specific gravity (U) [Rel density] 1.020 *NA* (03/21/24 4:27 PM) Invalid Interpretation Code 1.005 - 1.030 [facility] UA Auto SS Urobilinogen (U) [Mass/Vol] Negative Normal Negativemg/d L [facility] UA Auto SS URINALYSISOrdered By: Logan Hooker on 03-21-2024 UA Spec Desc Clean Catch (03/21/24 4:27 PM) Normal [facility] UA Auto SS XR Chest Single Viewon 03-21 XR Chest Single View Exam Date/Time: 03/21/2024 14:21 EDT Reason for Exam: Chest pain Report IMPRESSION: NO RADIOGRAPHIC EVIDENCE OF ACUTE INTRATHORACIC PROCESS. EXAM: XR Chest Single View History: Chest pain Technique: Portable AP view of the chest. Comparison: 10/19/2018 radiographs Findings: The cardiomediastinal silhouette is within normal limits. No pneumothorax, pleural effusion, or consolidation. Chronic deformity of the left clavicle. No acute osseous abnormality. Ordering Provider: Logan Hooker FINAL REPORT Dictated: 03/21/2024 2:52 pm Tom Luna DO Signed (Electronic Signature): 03/21/2024 2:52 pm Signed by: Tom Luna DO Transcribed by: HARRY Technologist: SINA Technical Comments Radiation Dose: Ka,r in mGy = na DAP = na Normal [facility] eGFRon 03-21-2024 eGFR 99 mL/min/1.73 m2 Normal >=59 [facility] Comment on above: Order Comment: Order added by Discern Expert. Performed By: #### 1 [id number] #### [facility] [address] [place] [address] Consultation Noteon 10-29-19 Consultation Note [id number] Normal [facility] Superficial Wound Cultureon 10-08-2023 Superficial Wound Culture LT ANTERIOR PROXIMAL UPPER ARM AND RT ANTERIOR DISTAL UPPER ARM ORGANISM: Methicillin Resis Staph Aureus (O:MRSA) Quantity of Growth Moderate Growth Aerobic ALEJO Charge (PCMIC38) ---- SUSCEPTIBILITY --- ORGANISM: O:MRSA ANTIBIOTIC INTERPRETATION ALEJO Azithromycin R >4 Ceftaroline S <0.5 Clindamycin S <0.25 Daptomycin S 1 Linezolid S 2 Oxacillin R >2 Penicillin R >2 Tetracycline S <4 Trimethoprim/Sulfamet hoxazole S <0.5 Vancomycin S 1 S = SUSCEPTIBLE I = INTERMEDIATE R = RESISTANT BLANK = DATA NOT AVAILABLE, OR DRUG NOT ADVISABLE OR TESTED R* = RESISTANCE DUE TO EXTENDED SPECTRUM BETA-LACTAMASES ESBL = EXTENDED SPECTRUM BETA-LACTAMASE TFG = THYMIDINE-DEPENDENT STRAIN MUNA = BETA-LACTAMASE POSITIVE IB = INDUCIBLE BETA-LACTAMASE. APPEARS IN PLACE OF 'S' WITH SPECIES KNOWN TO POSSESS INDUCIBLE BETA-LACTAMASES. POTENTIALLY THEY MAY BECOME RESISTANT TO ALL B-LACTAM DRUGS. PERFORMED BY: [place] [id number] PATHOLOGIST WIRE WEAVER HELPER GERARD GARCIA M.D. [facility] Comment on above: Performed By: #### C USUP #### [facility] [address] Provider Letteron 08-17-2023 Provider Letter August 17, 2023 CARI HALE [address] [place] [id number] : 1965 Dear Cari , We have been trying to reach you with no success. It is important that you return our call regarding your medication/appointmen t upon receiving this letter. Also, at the time of your call, please provide us with your current information. ;;f Thank you for your prompt attention to this matter. Sincerely, [facility] [place] [address] [place] [address] [facility] Family Medicine Office/Clini c Noteon 05-28-2023 Family Medicine Office/Clinic Note HPI Staff Cari is a 58 year old female presenting to [facility] Establish Care: History: Any previous diagnosis: Headache, Anxiety, HTN, HLD, Osteoarthritis, essential tremors, Type 2 DM, Colitis History of seeing any specialist: Neurologist for tremors doens't follow anymore, Dr Vitale in [place] When was your last doctors visit: Last provider: Dr Diallo Any recent labs: 01/22/23 and December 31 2022 A1c 7.2 Health Maintenance UTD: Colonoscopy: 10/2022 Colitis Mammogram: hasn't had one in a long time Pelvic/Pap: 3 years ago normal NEW: 10 Acute: Current issues/complaints: would like order for Angelina to [facility], refill hydroxyzine Menstrual cycle: pt states has went without for the over 4 years and re started intermittently 2 years ago 3 days here and there very light, within the last 2 months having extremely heaving periods lasting 4-5 days with about a month in between. pt states 2 years ago had seen obgyn due to restarting of bleeding and had a procedure done and was told everything was normal. Tremors: pt states she was put on Propranolol for the tremors and that seemed to be working up till about 1 month ago tremors started getting worse again. History of Present Illness pt presents today with c/o post menopausal bleeding. pt went 4 years without a period. she then started having cycles again. 3 years ago they did u/s and EMB and she was told everything was normal. will order pelvic U/S Review of Systems PHQ Score Initial Depression Screen Score: 0 ROS - Provider Constitutional: no fever, no chills, no sweats, no fatigue Respiratory: no shortness of breath, no cough, no orthopnea, no wheezing. Cardiovascular: no chest pain, no palpitations, no edema. Neurologic: no headache, no dizziness, no numbness, no weakness. : irregular, heavy painful cycles Physical Exam Vitals & Measurements HR: 88(Peripheral) RR: 18 BP: 126/74 SpO2: 98% HT: 62 in HT: 158 cm WT: 57.3 kg WT: 126.06 lb BMI: 22.95 General: alert, no acute distress ENMT: oral mucosa moist, no pharyngeal erythema or exudate Cardiovascular: regular rate and rhythm, normal peripheral perfusion Respiratory: Lungs CTA, respirations non labored Extremities: no deformity, no trauma Neurological: oriented x 4, LOC appropriate for age, CN II-XII intact, motor strength equal & normal bilaterally, speech normal Assessment/Plan 1. Post-menopause bleeding (N95.0: Postmenopausal bleeding) pt states she went 4 years without a period. she is now having heavy painful periods. SHe had EMB a couple years ago when she started having the bleeding and was told there was nothing wrong. will order pelvic u/s. will return for well woman exam. will go over mammogram and u/s results at that time. 2. Pelvic pain (R10.2: Pelvic and perineal pain) pelvic u/s ordered 3. Breast cancer screening by mammogram (Z12.31: Encounter for screening mammogram for malignant neoplasm of breast) mammogram ordered 4. Tremors of nervous system (R25.1: Tremor, unspecified) may refer back to neuro for tremors. 5. BMI 23.0-23.9, adult (Z68.23: Body mass index [BMI] 23.0-23.9, adult) BMI education complete 6. Smoker (F17.200: Nicotine dependence, unspecified, uncomplicated) consider not smoking 7. Type 2 diabetes mellitus with hyperlipidemia (E11.69: Type 2 diabetes mellitus with other specified complication) will check HGBA1C at well woman visit Follow-up No qualifying data available Problem List/Past Medical History Ongoing Abnormal CBC Abnormal kidney function Anxiety B12 deficiency BMI 23.0-23.9, adult BMI 24.0-24.9, adult Breast cancer screening by mammogram CAD Chronic hoarseness Dehydration Emphysema/COPD History of colon polyps History of recent fall HTN Hyperlipidemia Insulin long-term use Loose stools Lumbar back pain with radiculopathy affecting lower extremity Mild major depression Osteoarthritis Other problems related to lifestyle Other specified hypothyroidism Pelvic pain Post-menopause bleeding Screening for colon cancer Smoker Tremor Tremors of nervous system Type 2 diabetes mellitus with diabetic neuropathy Type 2 diabetes mellitus with hyperlipidemia Ulcerative colitis, chronic Vitamin D deficiency Historical Annual visit for general adult medical examination without abnormal findings Encounter for screening for other disorder Vaccination not carried out Procedure/Surgical History Caudal CHAVO (01/17/2018), caudal CHAVO (12/06/2017), Facet joint nerve block (01/17/2014), right small trigger finger release (07/17/2013), Injection of nerve root of lumbar spine using fluoroscopic guidance (03/27/2013), Epidural injection of lumbar spine using fluoroscopic guidance (12/23/2012), Epidural injection of lumbar spine using fluoroscopic guidance (07/25/2012), Angioplasty, Colonoscopy, History of back surgery....., Release of carpal tunnel for nerve decompression, Release of trigger finger, Thyroidectomy. M (more content not included)... Normal [facility] Comment on above: Result Comment: Elec tronically Signed By: Frida Khan\.edu\Date and Time Signed: 05/28/23 11:31 EDT Ambulatory Visit Summaryon 1 Ambulatory Visit Summary CARI HALE :1965 Visit Date:05/25/2023 Ambulatory Visit Instructions Your Diagnosis Post-menopause bleeding Pelvic pain Breast cancer screening by mammogram Tremors of nervous system BMI 23.0-23.9, adult Smoker Type 2 diabetes mellitus with hyperlipidemia Hyperlipidemia, unspecified Your Care Team Attending Physician - Frida Khan Primary Care Physician - Panchito DIALLO DO This Is Your Medications List Misc Prescription (Medtronic Insulin Pump 770G) Misc Prescription (One Touch Delica Plus Lancets 33G) Misc Prescription (One Touch Delica Plus Test Strips) budesonide (budesonide 3 mg oral delayed release capsule) ergocalciferol (Vitamin D 50,000 intl units (1.25 mg) oral capsule) escitalopram (escitalopram 10 mg Tab) estradiol (estradiol 2 mg Tab) gabapentin (gabapentin 300 mg Cap) hydrOXYzine (hydrOXYzine hydrochloride 25 mg Tab) insulin aspart (NovoLOG 100 units/mL injectable solution) levothyroxine (Synthroid 150 mcg (0.15 mg) Tab) progesterone (progesterone 100 mg oral capsule) propranolol (propranolol 20 mg Tab) rosuvastatin (rosuvastatin 5 mg Tab) Procedures Performed Caudal CHAVO (01/17/2018), caudal CHAVO (12/06/2017), Facet joint nerve block (01/17/2014), right small trigger finger release (07/17/2013), Injection of nerve root of lumbar spine using fluoroscopic guidance (03/27/2013), Epidural injection of lumbar spine using fluoroscopic guidance (12/23/2012), Epidural injection of lumbar spine using fluoroscopic guidance (07/25/2012), Angioplasty, Colonoscopy, History of back surgery....., Release of carpal tunnel for nerve decompression, Release of trigger finger, Thyroidectomy. Discharge Vitals Heart Rate (Peripheral) 88 Respiratory Rate 18 Blood Pressure 126/74 Height 158 cm Height 62 in Weight 57.3 kg Weight 126.06 lb BMI 22.95 What to do next Scheduled Follow-Up Appointments Wednesday 3:00 PM EST With: Frida Khan Where: [facility] Invalid Interpretation Code [address] [place] [address]-\.br\ You Need to Complete the Following\.b r\ MA Mamm Screen w/CAD if perf and 3D Jace, 05/25/23, Routine, Order for Future Visit, Transport Mode: Ambulatory, Reason: Screening, No, Breast cancer screening by mammogram, pp_set_radio logy_subspec ialty, [facility]\.br\ US Pelvis Non-OB Complete, 05/25/23, Routine, Order for future visit, Transport Mode: Ambulatory, Reason: Abnormal vaginal bleeding, No, Post-menopau se bleeding [facility] CHEMISTRYOrdered By: SYSTEM SYSTEM on 01-22-2023 Albumin [Mass/Vol] 3.5 g/dL Normal 3.3 - 5.0 gm/dL [facility] Albumin/Globulin [Mass ratio] 1.0 {ratio} Low 1.1 - 2.2 [facility] ALP [Catalytic activity/Vol] 95 [iU]/d Normal 21 - 98 Int._Unit/L [facility] ALT No additional P-5'-P [Catalytic activity/Vol] 20 [iU]/d Normal 6 - 46 Int._Unit/L [facility] Anion gap [Moles/Vol] 11 mmol/L Normal 6 - 16 mEq/L [facility] AST [Catalytic activity/Vol] 29 [iU]/d Normal 5 - 43 Int._Unit/L [facility] Bilirubin [Mass/Vol] 0.3 mg/dL Normal 0.0 - 1 .1 mg/dL [facility] Calcium [Mass/Vol] 8.4 mg/dL Low 8.9 - 11. 1 mg/dL [facility] Chloride [Moles/Vol] 107 mmol/L Normal 101 - 1 11 mmol/L [facility] CO2 [Moles/Vol] 21 mmol/L Normal 21 - 31 mmol/L [facility] Creatinine [Mass/Vol] 0.7 mg/dL Normal 0.5 - 1.3 mg/dL [facility] GFR/1.73 sq M.predicted among non-blacks MDRD (S/P/Bld) [Vol rate/Area] 100 mL/min/1.73 m2 Normal >=59mL/min/1 .73 m2 [facility] Globulin (S) [Mass/Vol] 3.4 g/dL Normal 1.4 - 4.0 gm/dL [facility] Glucose [Mass/Vol] 138 mg/dL Normal 55 - 199 mg/dL [facility] Potassium [Moles/Vol] 3.7 mmol/L Normal 3.5 - 5.3 mmol/L [facility] Protein [Mass/Vol] 6.9 g/dL Normal 6.0 - 7.8 gm/dL [facility] Sodium [Moles/Vol] 135 mmol/L Normal 135 - 145 mmol/L [facility] Urea nitrogen [Mass/Vol] 7 mg/dL Normal 5 - 21 mg/dL [facility] Urea nitrogen/Creatinine [Mass ratio] 10 mg/mg Normal 10 - 20 [facility] HEMATOLOGYOrdered By: SYSTEM SYSTEM on 01-22-2023 Basophils/100 WBC (Bld) 0.9 % Normal 0.0 - 2.0 % [facility] Basophils/Leukocytes Auto (Bld) [Pure # fraction] 0.1 E9/L Normal 0.0 - 0.2 E9/L [facility] Eosinophils/100 WBC (Bld) 5.3 % Normal 0.0 - 8.0 % [facility] Eosinophils/Leukocytes Auto (Bld) [Pure # fraction] 0.5 E9/L Normal 0.0 - 0.5 E9/L [facility] Lymphocytes/100 WBC (Bld) 24.8 % Normal 14.0 - 50.0 % [facility] Lymphocytes/Leukocytes Auto (Bld) [Pure # fraction] 2.2 E9/L Normal 1.0 - 4.0 E9/L [facility] Monocytes/100 WBC (Bld) 8.6 % Normal 4.0 - 14.0 % [facility] Monocytes/Leukocytes Auto (Bld) [Pure # fraction] 0.7 E9/L Normal 0.2 - 1.0 E9/L [facility] Neutrophils/100 WBC (Bld) 60.4 % Normal 36.0 - 75.0 % [facility] Neutrophils/Leukocytes Auto (Bld) [Pure # fraction] 5.2 E9/L Normal 2.0 - 7.5 E9/L [facility] HEMATOLOGYOrdered By: Kimberly Box on 01-22-2023 Erythrocyte distribution width (RBC) [Ratio] 13.3 % Normal 10.9 - 14.2 % [facility] Hematocrit (Bld) [Volume fraction] 42.2 % Normal 34.0 - 46.0 % [facility] Hemoglobin (Bld) [Mass/Vol] 14.2 g/dL Normal 12.0 - 16.0 gm/dL [facility] MCH (RBC) [Entitic mass] 32.7 pg Normal 27.0 - 34.0 pg [facility] MCHC (RBC) [Mass/Vol] 33.7 g/dL Normal 31.4 - 36.0 gm/dL [facility] MCV (RBC) [Entitic vol] 97.2 fL Normal 80.0 - 100.0 fL [facility] Platelet mean volume (Bld) [Entitic vol] 7.8 fL Normal 6.4 - 10.8 fL [facility] Platelets (Bld) [#/Vol] 294.0 E9/L Normal 150.0 - 500.0 E9/L [facility] RBC (Bld) [#/Vol] 4.4 E12/L Normal 4.3 - 5.9 E12/L [facility] WBC corrected for nucl RBC Auto (Bld) [#/Vol] 8.7 E9/L Normal 4.0 - 11.0 E9/L [facility] CHEMISTRYOrdered By: SYSTEM SYSTEM on 12-31-2022 Albumin [Mass/Vol] 3.7 g/dL Normal 3.3 - 5.0 gm/dL [facility] Albumin/Globulin [Mass ratio] 1.0 {ratio} Low 1.1 - 2.2 [facility] ALP [Catalytic activity/Vol] 88 [iU]/d Normal 21 - 98 Int._Unit/L [facility] ALT No additional P-5'-P [Catalytic activity/Vol] 11 [iU]/d Normal 6 - 46 Int._Unit/L [facility] Anion gap [Moles/Vol] 15 mmol/L Normal 6 - 16 mEq/L [facility] AST [Catalytic activity/Vol] 17 [iU]/d Normal 5 - 43 Int._Unit/L [facility] Bilirubin [Mass/Vol] 1.0 mg/dL Normal 0.0 - 1 .1 mg/dL [facility] Calcium [Mass/Vol] 9.1 mg/dL Normal 8.9 - 11. 1 mg/dL [facility] Chloride [Moles/Vol] 100 mmol/L Low 101 - 1 11 mmol/L [facility] Cholesterol [Mass/Vol] 198 mg/dL Normal 120 - 200 mg/dL [facility] Cholesterol in HDL [Mass/Vol] 87 mg/dL Invalid Interpretation Code [facility] Cholesterol in LDL [Mass/Vol] 86 mg/dL Normal <=129mg/dL [facility] Cholesterol in VLDL [Mass/Vol] 30 mg/dL Normal 7 - 40 mg/dL [facility] CO2 [Moles/Vol] 22 mmol/L Normal 21 - 31 mmol/L [facility] Cobalamin (Vitamin B12) [Mass/Vol] 1075 pg/mL Normal 50 - 1500 pg/mL [facility] Creatinine [Mass/Vol] 0.9 mg/dL Normal 0.5 - 1.3 mg/dL [facility] CRP [Mass/Vol] 0.8 mg/dL Normal <=1.9mg/dL [facility] GFR/1.73 sq M.predicted among non-blacks MDRD (S/P/Bld) [Vol rate/Area] 75 mL/min/1.73 m2 Normal >=59mL/min/1 .73 m2 [facility] Globulin (S) [Mass/Vol] 3.6 g/dL Normal 1.4 - 4.0 gm/dL [facility] Glucose [Mass/Vol] 221 mg/dL High 55 - 199 mg/dL [facility] Potassium [Moles/Vol] 3.9 mmol/L Normal 3.5 - 5.3 mmol/L [facility] Protein [Mass/Vol] 7.3 g/dL Normal 6.0 - 7.8 gm/dL [facility] Sodium [Moles/Vol] 133 mmol/L Low 135 - 145 mmol/L [facility] Triglyceride [Mass/Vol] 150 mg/dL High <=149mg/dL [facility] TSH Qn 0.01 m[IU]/L Low 0.34 - 5.60 mcIU/mL [facility] Urea nitrogen [Mass/Vol] 11 mg/dL Normal 5 - 21 mg/dL [facility] Urea nitrogen/Creatinine [Mass ratio] 12 mg/mg Normal 10 - 20 [facility] CHEMISTRYOrdered By: Pierre de luna on 12-31-2022 Albumin DL <= 20 mg/L (U) [Mass/Vol] 40.4 microgram/mL High 0.0 - 19.0 mcg/mL [facility] CHEMISTRYOrdered By: Davey gastelum on 12-31-2022 HbA1c (Bld) [Mass fraction] 7.2 % High <=5.9% [facility] HEMATOLOGYOrdered By: SYSTEM SYSTEM on 12-31-2022 Basophils/100 WBC (Bld) 0.8 % Normal 0.0 - 2.0 % [facility] Basophils/Leukocytes Auto (Bld) [Pure # fraction] 0.1 E9/L Normal 0.0 - 0.2 E9/L [facility] Eosinophils/100 WBC (Bld) 1.2 % Normal 0.0 - 8.0 % [facility] Eosinophils/Leukocytes Auto (Bld) [Pure # fraction] 0.1 E9/L Normal 0.0 - 0.5 E9/L [facility] Lymphocytes/100 WBC (Bld) 17.9 % Normal 14.0 - 50.0 % [facility] Lymphocytes/Leukocytes Auto (Bld) [Pure # fraction] 2.2 E9/L Normal 1.0 - 4.0 E9/L [facility] Monocytes/100 WBC (Bld) 5.7 % Normal 4.0 - 14.0 % [facility] Monocytes/Leukocytes Auto (Bld) [Pure # fraction] 0.7 E9/L Normal 0.2 - 1.0 E9/L [facility] Neutrophils/100 WBC (Bld) 74.4 % Normal 36.0 - 75.0 % [facility] Neutrophils/Leukocytes Auto (Bld) [Pure # fraction] 9.1 E9/L High 2.0 - 7.5 E9/L [facility] HEMATOLOGYOrdered By: Carlin Martinez on 12-31-2022 Erythrocyte distribution width (RBC) [Ratio] 13.4 % Normal 10.9 - 14.2 % [facility] Hematocrit (Bld) [Volume fraction] 42.3 % Normal 34.0 - 46.0 % [facility] Hemoglobin (Bld) [Mass/Vol] 14.6 g/dL Normal 12.0 - 16.0 gm/dL [facility] MCH (RBC) [Entitic mass] 33.5 pg Normal 27.0 - 34.0 pg [facility] MCHC (RBC) [Mass/Vol] 34.6 g/dL Normal 31.4 - 36.0 gm/dL [facility] MCV (RBC) [Entitic vol] 97.1 fL Normal 80.0 - 100.0 fL [facility] Platelet mean volume (Bld) [Entitic vol] 8.0 fL Normal 6.4 - 10.8 fL [facility] Platelets (Bld) [#/Vol] 408.0 E9/L Normal 150.0 - 500.0 E9/L [facility] RBC (Bld) [#/Vol] 4.4 E12/L Normal 4.3 - 5.9 E12/L [facility] Sed Rate Automated 14 mm/h Normal 0 - 34 mm/hr [facility] WBC corrected for nucl RBC Auto (Bld) [#/Vol] 12.2 E9/L High 4.0 - 11.0 E9/L [facility] Glucose Glucometer (BldC) [M ass/Vol]Ordered By: Geovanny Schaffer on 10-13-2022 Glucose [Mass/Vol] 177 mg/dL [facility] Comment on above: Random Glucose Refer ence Range is dependent on time and content of last meal. Glucose of more than 200 mg/dL in a nonstressed, ambulatory subject supports the diagnosis of Diabetes Mellitus. HCG ( test) IA.rapi d Ql (U)Ordered By: Geovanny Schaffer on 10-13-2022 HCG ( test) Ql (U) Negative [facility] No Panel InformationOrdered By: Geovanny Schaffer on 10-13-2022 Bedside Glucose Comment Glu2: cleaned meter [facility] CHEMISTRYOrdered By: SYSTEM SYSTEM on 06-03-2022 Albumin [Mass/Vol] 3.7 g/dL Normal 3.3 - 5.0 gm/dL [facility] Albumin/Globulin [Mass ratio] 1.1 {ratio} Normal 1.1 - 2.2 [facility] ALP [Catalytic activity/Vol] 84 [iU]/d Normal 21 - 98 Int._Unit/L [facility] ALT No additional P-5'-P [Catalytic activity/Vol] 13 [iU]/d Normal 6 - 46 Int._Unit/L [facility] Anion gap [Moles/Vol] 19 mmol/L High 6 - 16 mEq/L [facility] AST [Catalytic activity/Vol] 19 [iU]/d Normal 5 - 43 Int._Unit/L [facility] Bilirubin [Mass/Vol] 0.6 mg/dL Normal 0.0 - 1 .1 mg/dL [facility] Calcium [Mass/Vol] 8.8 mg/dL Low 8.9 - 11. 1 mg/dL [facility] Chloride [Moles/Vol] 97 mmol/L Low 101 - 1 11 mmol/L [facility] Cholesterol [Mass/Vol] 244 mg/dL High 120 - 200 mg/dL [facility] Cholesterol in HDL [Mass/Vol] 106 mg/dL Invalid Interpretation Code [facility] Cholesterol in LDL [Mass/Vol] 101 mg/dL Normal <=129mg/dL [facility] Cholesterol in VLDL [Mass/Vol] 23 mg/dL Normal 7 - 40 mg/dL [facility] CO2 [Moles/Vol] 24 mmol/L Normal 21 - 31 mmol/L [facility] Creatinine [Mass/Vol] 0.8 mg/dL Normal 0.5 - 1.3 mg/dL [facility] GFR/1.73 sq M.predicted among blacks MDRD (S/P/Bld) [Vol rate/Area] mL/min/1.73 m2 Normal >=59mL/min/1 .73 m2 [facility] Chem S GFR/1.73 sq M.predicted among non-blacks MDRD (S/P/Bld) [Vol rate/Area] mL/min/1.73 m2 Normal >=59mL/min/1 .73 m2 [facility] Globulin (S) [Mass/Vol] 3.3 g/dL Normal 1.4 - 4.0 gm/dL [facility] Glucose [Mass/Vol] 191 mg/dL Normal 55 - 199 mg/dL [facility] Potassium [Moles/Vol] 4.9 mmol/L Normal 3.5 - 5.3 mmol/L [facility] Progesterone [Mass/Vol] 8.40 ng/mL Invalid Interpretation Code [facility] Protein [Mass/Vol] 7.0 g/dL Normal 6.0 - 7.8 gm/dL [facility] Sodium [Moles/Vol] 135 mmol/L Normal 135 - 145 mmol/L [facility] Triglyceride [Mass/Vol] 114 mg/dL Normal <=149mg/dL [facility] TSH Qn 0.01 m[IU]/L Low 0.34 - 5.60 mcIU/mL [facility] Urea nitrogen [Mass/Vol] 13 mg/dL Normal 5 - 21 mg/dL [facility] Urea nitrogen/Creatinine [Mass ratio] 16 mg/mg Normal 10 - 20 [facility] CHEMISTRYOrdered By: Steven Benson on 06-03-2022 HbA1c (Bld) [Mass fraction] 7.5 % High <=5.9% [facility] CHEMISTRYOrdered By: Ag Martinez on 06-03-2022 Albumin DL <= 20 mg/L (U) [Mass/Vol] 26.6 microgram/mL High 0.0 - 19.0 mcg/mL [facility] HEMATOLOGYOrdered By: SYSTEM SYSTEM on 06-03-2022 Basophils/100 WBC (Bld) 0.7 % Normal 0.0 - 2.0 % [facility] Basophils/Leukocytes Auto (Bld) [Pure # fraction] 0.1 E9/L Normal 0.0 - 0.2 E9/L [facility] Eosinophils/100 WBC (Bld) 2.2 % Normal 0.0 - 8.0 % [facility] Eosinophils/Leukocytes Auto (Bld) [Pure # fraction] 0.2 E9/L Normal 0.0 - 0.5 E9/L [facility] Lymphocytes/100 WBC (Bld) 26.3 % Normal 14.0 - 50.0 % [facility] Lymphocytes/Leukocytes Auto (Bld) [Pure # fraction] 2.8 E9/L Normal 1.0 - 4.0 E9/L [facility] Monocytes/100 WBC (Bld) 6.3 % Normal 4.0 - 14.0 % [facility] Monocytes/Leukocytes Auto (Bld) [Pure # fraction] 0.7 E9/L Normal 0.2 - 1.0 E9/L [facility] Neutrophils/100 WBC (Bld) 64.5 % Normal 36.0 - 75.0 % [facility] Neutrophils/Leukocytes Auto (Bld) [Pure # fraction] 6.8 E9/L Normal 2.0 - 7.5 E9/L [facility] HEMATOLOGYOrdered By: Briana Machuca on 06-03-2022 Erythrocyte distribution width (RBC) [Ratio] 14.3 % High 10.9 - 14.2 % [facility] Hematocrit (Bld) [Volume fraction] 40.3 % Normal 34.0 - 46.0 % [facility] Hemoglobin (Bld) [Mass/Vol] 13.5 g/dL Normal 12.0 - 16.0 gm/dL [facility] MCH (RBC) [Entitic mass] 33.0 pg Normal 27.0 - 34.0 pg [facility] MCHC (RBC) [Mass/Vol] 33.6 g/dL Normal 31.4 - 36.0 gm/dL [facility] MCV (RBC) [Entitic vol] 98.3 fL Normal 80.0 - 100.0 fL [facility] Platelet mean volume (Bld) [Entitic vol] 7.8 fL Normal 6.4 - 10.8 fL [facility] Platelets (Bld) [#/Vol] 349.0 E9/L Normal 150.0 - 500.0 E9/L [facility] RBC (Bld) [#/Vol] 4.1 E12/L Low 4.3 - 5.9 E12/L [facility] WBC corrected for nucl RBC Auto (Bld) [#/Vol] 10.5 E9/L Normal 4.0 - 11.0 E9/L [facility] CBC AUTO DIFFon 01-15-2022 BASO # 0.1 103/ul Normal 0.0-0.[address] [facility] Comment on above: Performed By: #### A 1C #### [facility] [address] [address] [address] Jesus Lunsford Basophils/100 WBC (Bld) 0.6 % Normal 0.2-2.0 [facility] Comment on above: Performed By: #### A 1C #### [facility] [address] [address] [address] Jesus Lunsford EO # 0.2 103/ul Normal 0.0-0.7 [facility] Comment on above: Performed By: #### A 1C #### [facility] [address] [address] [address] Jesus Lunsford Eosinophils/100 WBC (Bld) 1.3 % Normal 0.9-7.0 [facility] Comment on above: Performed By: #### A 1C #### [facility] [address] [place] [address] Dr. Jesus Lunsford Erythrocyte distribution width (RBC) [Ratio] 14.5 % Normal 11.0-15.0 [facility] Comment on above: Performed By: #### A 1C #### [facility] [address] [place] [address] Dr. Jesus Lunsford Hematocrit (Bld) [Volume fraction] 36.8 % Normal 36.0-48.0 [facility] Comment on above: Performed By: #### A 1C #### [facility] [address] [place] [address] Dr. Jesus Lunsford Hemoglobin (Bld) [Mass/Vol] 12.2 g/dL Normal 12.0-16.0 [facility] Comment on above: Performed By: #### A 1C #### [facility] [address] [place] [address] Dr. Jesus Lunsford IG # 0.09 10e3/ul Critically high 0.00-0.03 [facility] Comment on above: Performed By: #### A 1C #### [facility] [address] [address] [address] Jesus Lunsford IG % 0.7 % Critically high 0.0-0.5 [facility] Comment on above: Performed By: #### A 1C #### [facility] [address] [place] [address] Dr. Jesus Lunsford LYMPH # 2.9 103/ul Normal 1.2-3.[address] [facility] Comment on above: Performed By: #### A 1C #### [facility] [address] [place] [address] Dr. Jesus Lunsford Lymphocytes/100 WBC (Bld) 22.4 % Normal 20.5-60.0 [facility] Comment on above: Performed By: #### A 1C #### [facility] [address] [place] [address] Dr. Jesus Lunsford MANUAL DIFF REQ NO Normal [facility] Comment on above: Performed By: #### A 1C #### [facility] [address] [place] [address] Dr. Jesus Lunsford MCH (RBC) [Entitic mass] 32.4 pg Normal 26.7-34.0 [facility] Comment on above: Performed By: #### A 1C #### [facility] [address] [place] [address] Dr. Jesus Lunsford MCHC (RBC) [Mass/Vol] 33.2 g/dL Normal 29.9-35.2 [facility] Comment on above: Performed By: #### A 1C #### [facility] [address] [place] [address] Dr. Jesus Lunsford MCV (RBC) [Entitic vol] 97.9 fL Normal 81.0-99.0 [facility] Comment on above: Performed By: #### A 1C #### [facility] [address] [place] [address] Dr. Jesus Lunsford MONO # 1.6 103/ul Critically high 0.3-0.8 [facility] Comment on above: Performed By: #### A 1C #### [facility] [address] [place] [address] Dr. Jesus uLnsford Monocytes/100 WBC (Bld) 12.4 % Critically high 1.7-12.[address] [facility] Comment on above: Performed By: #### A 1C #### [facility] [address] [place] [address] Dr. Jesus Lunsford NEUT # 8.0 103/ul Critically high 1.4-6.5 [facility] Comment on above: Performed By: #### A 1C #### [facility] [address] [address] [address] Jesus Lunsford Neutrophils/100 WBC (Bld) 62.6 % Normal 43.0-75.0 [facility] Comment on above: Performed By: #### A 1C #### [facility] [address] [address] [address] Jesus Lunsford Platelet mean volume (Bld) [Entitic vol] 10.0 fL Normal 9.5-13.5 [facility] Comment on above: Performed By: #### A 1C #### [facility] [address] [place] [address] Dr. Jesus Lunsford PLT 233 103/ul Normal 150-450 [facility] Comment on above: Performed By: #### A 1C #### [facility] [address] [place] [address] Dr. Jesus Lunsford RBC 3.76 106/ul Critically low 4.20-5.40 [facility] Comment on above: Performed By: #### A 1C #### [facility] [address] [place] [address] Dr. Jesus Lunsford WBC 12.8 103/ul Critically high 4.0-11.0 [facility] Comment on above: Performed By: #### A 1C #### [facility] [address] [place] [address] Dr. Jesus Lunsford DRUG SCREEN RAPID (URINE)on 01-15-2022 AMP Negative Normal NEGATIVE [facility] Comment on above: Performed By: #### D RUGRPD #### [facility] [address] [place] [address] Dr. Jesus Lunsford BAR Negative Normal NEGATIVE [facility] Comment on above: Performed By: #### D RUGRPD #### [facility] [address] [place] [address] Dr. Jesus Lunsford BUP Negative Normal NEGATIVE [facility] Comment on above: Performed By: #### D RUGRPD #### [facility] [address] [place] [address] Dr. Jesus Lunsford BZO Positive Abnormal NEGATIVE [facility] Comment on above: Performed By: #### D RUGRPD #### [facility] [address] [place] [address] Dr. Jesus Lunsford VENU Negative Normal NEGATIVE [facility] Comment on above: Performed By: #### D RUGRPD #### [facility] [address] [place] [address] Dr. Jesus Lunsford CUT-OFFS SEE BELOW Normal [facility] Comment on above: Result Comment: AMP (Amphetamine): 500ng/mL, BAR (Barbituates): 200 ng/mL, BZO (Benzodiazepines): 150 ng/mL, BUP (Buprenorphine): 10 ng/mL, VENU (Cocaine): 150 ng/mL, mAMP (Methamphetamine): 500 ng/mL, MTD (Methadone): 200 ng/mL, OPI (Opiates): 100 ng/mL, OXY (Oxycodone): 100 ng/mL, PCP (Phencyclidine): 25 ng/mL, PPX (Propoxyphene): 300 ng/mL, THC (Cannabinoids): 50 ng/mL, TCA (Trycyclic Antidepressants): 300 ng/mL Performed By: #### D RUGRPD #### [facility] [address] [place] [address] Dr. Jesus Lunsford DRUG CUT HEADER DRUG CLASS TEST SYSTEM CUT-OFF CONCENTRATIONS ARE FOLLOWS: Normal [facility] Comment on above: Performed By: #### D RUGRPD #### [facility] [address] [place] [address] Dr. Jesus Lunsford mAMP Negative Normal NEGATIVE [facility] Comment on above: Performed By: #### D RUGRPD #### [facility] [address] [place] [address] Dr. Jesus Lunsford MTD Negative Normal NEGATIVE [facility] Comment on above: Performed By: #### D RUGRPD #### [facility] [address] [place] [address] Dr. Jesus Lunsford OPI Positive Abnormal NEGATIVE [facility] Comment on above: Performed By: #### D RUGRPD #### [facility] [address] [place] [address] Dr. Jesus Lunsford OXY Positive Abnormal NEGATIVE [facility] Comment on above: Performed By: #### D RUGRPD #### [facility] [address] [address] [address] Jesus Lunsford PCP Negative Normal NEGATIVE [facility] Comment on above: Performed By: #### D RUGRPD #### [facility] [address] [address] [address] Jesus Lunsford PPX Negative Normal NEGATIVE [facility] Comment on above: Performed By: #### D RUGRPD #### [facility] [address] [address] [address] Jesus Lunsford TCA Negative Normal NEGATIVE [facility] Comment on above: Performed By: #### D RUGRPD #### [facility] [address] [place] [address] Dr. Jesus Lunsford THC Negative Normal NEGATIVE [facility] Comment on above: Performed By: #### D RUGRPD #### [facility] [address] [place] [address] Dr. Jesus Lunsford ECHOCARDIO M/2D COMPLETEon 0 01-15-2022 ECHOCARDIO M/2D COMPLETE Patient: CARI HALE Exam Date: 01/15/2022 : 1965 Gender:F Ordering : SHAIKH Aleisha SHELBY . Admission #: [id number] Family : Order #: [id number] CLICK HERE TO VIEW EXAM ECHOCARDIOGRAM REPORT PROCEDURE: CARDIO PULMONARY ECHOCARDIO M/2D COMP INDICATIONS: Chest pain, r/o ACS, h/o AWMI, PTCA, alcohol abuse COMPARISON: None. DESCRIPTION: COMPLETE ECHOCARDIOGRAM Real-time transthoracic echocardiography with 2D, M-mode, spectral and color flow Doppler performed. QUALITY: Technical quality was good. LEFT VENTRICLE: Normal chamber size. Normal left ventricular wall thickness. There is hypokinesis of the mid and distal septum, mid and distal anterior and anterolateral booker and apex. Global left ventricular systolic function is moderately to severely reduced. LV EF: Moderately to severely reduced left ventricular ejection fraction, (30-35%). DIASTOLIC: Diastolic function is indeterminate. ATRIAL SEPTUM: Visually appears intact. LEFT ATRIUM: Normal chamber size. RIGHT ATRIUM: Normal chamber size. RIGHT VENTRICLE: Normal chamber size. Normal right ventricular systolic function. TRICUSPID VALVE: Normal mobility and thickness. No stenosis with Doppler studies reveal mildly (35-45) elevated right sided pressures. RVSP 39 mmHg MITRAL VALVE: Mildly thickened with normal mobility. No evidence of mitral valve stenosis. Mild mitral annular calcification. Mild to moderate mitral regurgitation. AORTIC VALVE: Normal trileaflet appearance. Mildly calcified aortic valve. Mildly diminished mobility. No evidence of aortic valve stenosis. DVI 0.65. No aortic regurgitation. AORTIC ROOT: Normal diameter and appearance. PULMONIC VALVE: Normal thickness and mobility. No stenosis. No regurgitation. PERICARDIUM: No evidence of pericardial effusion. IVC: IVC is normal in size with no collapse. PLEURA: CONCLUSION: 1. Left ventricular systolic function is moderately to severe reduced with segmental wall motion abnormalities in the LAD territory. LVEF is 30 to 35%. 2. Normal right ventricular size and function. 3. Mild to moderate mitral regurgitation. 4. Mildly elevated right-sided pressures. 5. No pericardial effusion. Adult Echocardiography Procedure Report Left Ventricle LVEDD (3.7 - 5.6 cm): 4.45 cm LVESD (2.2 - 4.0 cm): 2.75 cm LVIVS thickness (0.6 - 1.2 cm): 8.50 mm LVPW thickness (0.5 - 1.0 cm): 7.77 mm e': 7.79 cm/s E - e': 11.70 LVOT Area (cm2): 2.54 cm2 Peak Velocity (LVOT): 83.90 cm/s LVOT Diameter 1.80 cm Left Ventricular Ejection Fraction: 30-35 % Left Atrium LA Volume Index (2D A2C): 25 ml/m2 Left Atrium Systolic Dimension: 2.90 cm Left Atrium Systolic Area(A2C): 15.20 cm2 Left Atrium Systolic Area(A4C): 16.10 cm2 Left Atrium Systolic Volume(A2C): 76641 mm3 Left Atrium Systolic Volume(A4C): 00130 mm3 Mitral Valve MV E to A Ratio: 1.70 Mitral Valve A-Wave Peak Velocity: 52.30 cm/s Mitral Valve E-Wave Peak Velocity: 91.30 cm/s Deceleration Time: 195 ms Right Ventricle Aorta AO Root Diam: 2.70 cm Aortic Valve Peak Velocity (Antegrade Flow): 115.00 cm/s, 120.00 cm/s AoV Area (Peak Cassia): 1.66 cm2 AoV Area (VTI): 1.64 cm2 Peak Velocity(Antegrade Flow): 130.00 cm/s Peak Gradient(Antegrade Flow): 7 mm[Hg] Mean Velocity(Antegrade Flow): 85.20 cm/s Mean Gradient(Antegrade Flow): 3 mm[Hg] Velocity Time Integral: 25.50 cm Tricuspid Valve Peak Velocity (Regurgitant Flow): 260.00 cm/s Pulmonic Valve Peak Velocity: 73.00 cm/s Peak Gradient: 2 mm[Hg] Right Atrium Dictated by: Herbert Siddiqi M.D. on 01/15/2022 at 14:35 Approved by: Herbert Siddiqi M.D. on 01/15/2022 at 14:43 Normal [facility] GLYCOHEMOGLOBIN A1Con 2021 ADA RECOMMENDATION SEE BELOW Normal [facility] Comment on above: Result Comment: ADA RECOMMENDED LIMIT 4.0 - 6.0 ADA THERAPEUTIC TARGET < 7.0 ACTION SUGGESTED > 7.0 Performed By: #### A 1C #### [facility] [address] [place] [address] Dr. Jesus Lunsford Glucose [Mass/Vol] 166 mg/dL Normal [facility] Comment on above: Performed By: #### A 1C #### [facility] [address] [place] [address] Dr. Jesus Lunsford HbA1c (Bld) [Mass fraction] 7.4 % Critically high 4.5-6.2 [facility] Comment on above: Performed By: #### A 1C #### [facility] [address] [address] [address] Jesus Lunsford LIPID PROFILEon 01-15-2022 CHOL-HDL RATIO NORM SEE BELOW Normal [facility] Comment on above: Result Comment: 3.3 - 4.4 LOW RISK 4.4 - 7.1 AVERAGE RISK 7.1 - 11.0 MODERATE RISK >11.0 HIGH RISK Performed By: #### L IPID #### [facility] [address] [address] [address] Jesus Lunsford Cholesterol [Mass/Vol] 144 mg/dL Normal <=200 [facility] Comment on above: Performed By: #### L IPID #### [facility] [address] [address] [address] Jesus Lunsford Cholesterol in HDL [Mass/Vol] 69 mg/dL Critically high 40-60 [facility] Comment on above: Performed By: #### L IPID #### [facility] [address] [address] [address] Jesus Lunsford Cholesterol in LDL [Mass/Vol] 67.6 mg/dL Normal [facility] Comment on above: Performed By: #### L IPID #### [facility] [address] [address] [address] Jesus Lunsford Cholesterol.total/Chol esterol in HDL [Mass ratio] 2.1 {ratio} Normal [facility] Comment on above: Performed By: #### L IPID #### [facility] [address] [place] [address] Dr. Jesus Lunsford HDL NORMAL > or = 60 mg/dl - LO W CARDIOVASCULAR RISK <40 mg/dl - HIGH CARDIOVASCULAR RISK Normal [facility] Comment on above: Performed By: #### L IPID #### [facility] [address] [place] [address] Dr. Jesus Lunsford LDL CALC NORMAL SEE BELOW Normal [facility] Comment on above: Result Comment: <100 mg/dl OPTIMAL 100 - 129 mg/dl NEAR OR ABOVE OPTIMAL 130 - 159 mg/dl BORDERLINE HIGH 160 - 189 mg/dl HIGH >190 mg/dl VERY HIGH Performed By: #### L IPID #### [facility] [address] [place] [address] Dr. Jesus Lunsford Triglyceride [Mass/Vol] 37 mg/dL Normal <=150 [facility] Comment on above: Performed By: #### L IPID #### [facility] [address] [address] [address] Jesus Lunsford VLDL CALC 7.4 mg/dL Normal [facility] Comment on above: Performed By: #### L IPID #### [facility] [address] [address] [address] Jesus Lunsford POINT OF CARE GLUCOSEon 12-31 Glucose [Mass/Vol] 58 mg/dL Critically low 74-106 [facility] Comment on above: Performed By: #### C VDTBH #### [facility] [address] [place] [address] Dr. Jesus Lunsford Glucose [Mass/Vol] 104 mg/dL Normal 74-106 [facility] Comment on above: Performed By: #### A 1C #### [facility] [address] [address] [address] Jesus Lunsford PROF CHEM 8 (BAS METB)on Anion gap [Moles/Vol] 11.2 mmol/L Normal [facility] Comment on above: Performed By: #### A 1C #### [facility] [address] [place] [address] Dr. Jesus Lunsford Calcium [Mass/Vol] 8.0 mg/dL Critically low 8.5-10.1 [facility] Comment on above: Performed By: #### A 1C #### [facility] [address] [place] [address] Dr. Jesus Lunsford Chloride [Moles/Vol] 99 mmol/L Normal 98-107 [facility] Comment on above: Performed By: #### A 1C #### [facility] [address] [place] [address] Dr. Jesus Lunsford CO2 [Moles/Vol] 27.5 mmol/L Normal 21.0-32.0 [facility] Comment on above: Performed By: #### A 1C #### [facility] [address]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 guidance Panchito DIALLO Comment on above: L4-L5 Start: 07-25-2012 Epidural injection o f lumbar spine using fluoroscopic guidance Panchito DIALLO Comment on above: L4-L5 Angioplasty of blood vessel Panchito DIALLO Colonoscopy Panchito DIALLO Decompression of med anabelle nerve Panchito DIALLO Comment on above: B/L H/O Spinal surgery Panchito GRIFFIN Release of trigger finger Panchito DIALLO Thyroidectomy Panchito DIALLO Vaccine refused by patient Vaccination not carried out Panchito DIALLO Vaccine refused by patient Vaccination not carried out Panchito DIALLO Plan of Treatment Date Care Activity Detail Author Start: 10-13-2022 [facility] Immunizations Immunization Date Immunization Notes Care Provider Hazel hansen NEGATED: Highlighted row has not occurred!09-02-2021 influenza virus vaccine, unspecified formulation Panchito DIALLO [facility] NEGATED: Highlighted row has not occurred!09-05-2020 influenza virus vaccine, unspecified formulation Panchito DIALLO [facility] [place] Payers Date Payer Category Payer Self-pay [id number] 2020 Unknown [id number] 1965 Unknown [id number] 1965 Unknown [id number]. 1965 Unknown [id number] 1965 Unknown [id number] [id number] 1965 Unknown [id number] 1965 Unknown [id number] [id number]. 1965 Unknown [id number] [id number] 1965 Unknown [id number] [id number] 1965 Unknown [id number] [id number] 1965 Unknown [id number] [id number] 1965 Unknown [id number] [id number] 1965 Unknown [id number] [id number] 1965 Unknown [id number] Medicare Self Pay [id number] Medicare Medicare [id number] Unknown [id number] Unknown Regular Auto/Liability [id number] Unknown [id number] Social History Date Type Detail Facility Tobacco smoking stat [facility] Unknown if ever smoked [facility] Start: 1965 Sex Assigned At Female F [facility] Sex Assigned At [employer] Other Start: 05-12-2022 End: 05-25-2023 Tobacco smoking status Heavy tobacco smoker (finding) [facility] Tobacco smoking status Never [facility] Start: 10-13-2022 [facility] Medical Equipment Procedure Code Equipment Code Equipment Origin al Text Equipment Identifier Dates One Touch Delica Plus Lancets 33G, See Instructions, 500 EA, 5, Use as directed. Testing blood sugars 5+ times daily. DX: E11.69, [id number], Supply, 158, cm, 05/12/22 15:40:00 EDT, Height/Length Dosing, 59.8, kg, 05/12/22 15:40:00 EDT, Weight... Start: 05-12-2022 One Touch Delica Plus Test Strips, See Instructions, 500 EA, 5, Use as directed. Testing blood sugars 5+ times daily. DX: E11.69, [id number], Supply, 158, cm, 05/12/22 15:40:00 EDT, Height/Length Dosing, 59.8, kg, 05/12/22 15:40:00 EDT, Weight... Start: 05-12-2022 USE TO TEST BLOO D SUGAR 5 TIMES DAILY DX E11 Start: 05-12-2022 One Touch Delica Plus Lancets 33G, See Instructions, 500 EA, 5, Use as directed. Testing blood sugars 5+ times daily. DX: E11., [id number], Supply, 158, cm, 05/12/22 15:40:00 EDT, Height/Length Dosing, 59.8, kg, 05/12/22 15:40:00 EDT, Weight... Start: 05-12-2022 One Touch Delica Plus Test Strips, See Instructions, 500 EA, 5, Use as directed. Testing blood sugars 5+ times daily. DX: E11., [id number], Supply, 158, cm, 05/12/22 15:40:00 EDT, Height/Length Dosing, 59.8, kg, 05/12/22 15:40:00 EDT, Weight... Start: 05-12-2022 one touch samia lancing device, See Instructions, 1 EA, 0, use with lancets to check blood glucose dx E11., [id number], Supply, 158, cm, 05/12/22 15:40:00 EDT, Height/Length Dosing, 59.8, kg, 05/12/22 15:40:00 EDT, Weight Dosing Start: 05-22-2022 USE TO TEST BLOO D SUGAR 5 TIMES DAILY DX E11.69 Start: 05-12-2022 One Touch Delica Plus Lancets 33G, See Instructions, 500 EA, 5, Use as directed. Testing blood sugars 5+ times daily. DX: E11.69, [id number], Supply, 158, cm, 05/12/22 15:40:00 EDT, Height/Length Dosing, 59.8, kg, 05/12/22 15:40:00 EDT, Weight... Start: 05-12-2022 One Touch Delica Plus Test Strips, See Instructions, 500 EA, 5, Use as directed. Testing blood sugars 5+ times daily. DX: E11.69, [id number], Supply, 158, cm, 05/12/22 15:40:00 EDT, Height/Length Dosing, 59.8, kg, 05/12/22 15:40:00 EDT, Weight... Start: 05-12-2022 One Touch Delica Plus Lancets 33G, See Instructions, 500 EA, 5, Use as directed. Testing blood sugars 5+ times daily. DX: E11.69, [id number], Supply, 158, cm, 05/12/22 15:40:00 EDT, Height/Length Dosing, 59.8, kg, 05/12/22 15:40:00 EDT, Weight... Start: 05-12-2022 One Touch Delica Plus Test Strips, See Instructions, 500 EA, 5, Use as directed. Testing blood sugars 5+ times daily. DX: E11.69, [id number], Supply, 158, cm, 05/12/22 15:40:00 EDT, Height/Length Dosing, 59.8, kg, 05/12/22 15:40:00 EDT, Weight... Start: 05-12-2022 One Touch Delica Plus Lancets 33G, See Instructions, 500 EA, 5, Use as directed. Testing blood sugars 5+ times daily. DX: E11.69, [id number], Supply, 158, cm, 05/12/22 15:40:00 EDT, Height/Length Dosing, 59.8, kg, 05/12/22 15:40:00 EDT, Weight... Start: 05-12-2022 One Touch Delica Plus Test Strips, See Instructions, 500 EA, 5, Use as directed. Testing blood sugars 5+ times daily. DX: E11.69, [id number], Supply, 158, cm, 05/12/22 15:40:00 EDT, Height/Length Dosing, 59.8, kg, 05/12/22 15:40:00 EDT, Weight... Start: 05-12-2022 One Touch Delica Plus Lancets 33G, See Instructions, 500 EA, 5, Use as directed. Testing blood sugars 5+ times daily. DX: E11.69, [id number], Supply, 158, cm, 05/12/22 15:40:00 EDT, Height/Length Dosing, 59.8, kg, 05/12/22 15:40:00 EDT, Weight... Start: 05-12-2022 One Touch Delica Plus Test Strips, See Instructions, 500 EA, 5, Use as directed. Testing blood sugars 5+ times daily. DX: E11.69, [id number], Supply, 158, cm, 05/12/22 15:40:00 EDT, Height/Length Dosing, 59.8, kg, 05/12/22 15:40:00 EDT, Weight... Start: 05-12-2022 One Touch Delica Plus Lancets 33G, See Instructions, 500 EA, 5, Use as directed. Testing blood sugars 5+ times daily. DX: E11.69, [id number], Supply, 158, cm, 05/12/22 15:40:00 EDT, Height/Length Dosing, 59.8, kg, 05/12/22 15:40:00 EDT, Weight... Start: 05-12-2022 One Touch Delica Plus Test Strips, See Instructions, 500 EA, 5, Use as directed. Testing blood sugars 5+ times daily. DX: E11.69, [id number], Supply, 158, cm, 05/12/22 15:40:00 EDT, Height/Length Dosing, 59.8, kg, 05/12/22 15:40:00 EDT, Weight... Start: 05-12-2022 One Touch Delica Plus Lancets 33G, See Instructions, 500 EA, 5, Use as directed. Testing blood sugars 5+ times daily. DX: E11.69, [id number], Supply, 158, cm, 05/12/22 15:40:00 EDT, Height/Length Dosing, 59.8, kg, 05/12/22 15:40:00 EDT, Weight Dosing Start: 05-12-2022 One Touch Delica Plus Test Strips, See Instructions, 500 EA, 5, Use as directed. Testing blood sugars 5+ times daily. DX: E11.69, [id number], Supply, 158, cm, 05/25/23 15:27:00 EDT, Height/Length Dosing, 57.3, kg, 05/25/23 15:27:00 EDT, Weight Dosing Start: 05-26-2023 Goals Date Patient Goal Desired Activity /State Functional Status Date Assessment Result Facility 03-21-2024 Functional Status N/A [facility] 03-21-2024 Functional Status [facility] 12-31-2022 Functional Status N/A [facility] 05-12-2022 Functional Status N/A [facility] Clinical Notes 10-29-2021 to 03-31-2024 Note Date & Type Note Facility 03-31-2024 Note Discharge Summary Admission and Discharge Information Admitting Physician - Lee Martinez DO Admitting Diagnoses: Discharge Diagnoses 1. TIA (transient ischemic attack), 03/21/2024 2. Type 2 diabetes mellitus with diabetic neuropathy, 03/21/2024 3. HTN, 03/21/2024 4. Hyperlipidemia, 03/21/2024 5. PAD (peripheral artery disease), 03/21/2024 6. CAD, 03/21/2024 7. Emphysema/COPD, 03/21/2024 8. Mood disorder, 03/21/2024 9. Alcohol abuse, 03/21/2024 10. History of thyroidectomy, 03/21/2024 11. Smoker, 03/21/2024 Diabetes mellitus with hypoglycemia, 03/22/2024 Potential stroke, 03/21/2024 Weakness or fatigue, 03/21/2024 Procedure History Caudal CHAVO (01/17/2018), caudal CHAVO (12/06/2017), Facet joint nerve block (01/17/2014), right small trigger finger release (07/17/2013), Injection of nerve root of lumbar spine using fluoroscopic guidance (03/27/2013), Epidural injection of lumbar spine using fluoroscopic guidance (12/23/2012), Epidural injection of lumbar spine using fluoroscopic guidance (07/25/2012), Angioplasty, Colonoscopy, History of back surgery....., Release of carpal tunnel for nerve decompression, Release of trigger finger, Thyroidectomy. Hospital Course 59 year old female with presented to the hospital due to weakness and stroke like symptoms. PT reported rigth facial droop, ataxia and confusion. Pt underwent a MRI of the brain and MRA of the head which were both negative for acute findings. Echo w/saline bubble study w/ 55-60% w/normal LV/RV w/o valve disease. Pt w/imparted diastolic relaxation. Negative bubble study. Pt was monitored on telemetry which showed no significant events. Consultation was placed to neurology who recommended that pt continue ASA/Plavix. Pt symptoms not related to stroke. Neurology feels that symptoms secondary to hypoglycemia due to pt increasing insulin coverage to cover w/alcohol abuse. Pt w/poor oral intake likely due to ETOH use. Per EMS report pt was hypoglycemic with BS 64 and required oral glucose in the squad. BS on arrival to the hospital was 83. Pt does have an insulin pump that she manages. During hospitalization pt;s spouse reported that pt drinks at least 2 bottles of wine nightly. Pt did admit to this. I did discuss in depth the risk of not eating balance diabetic diet, increased alcohol intake and effects especially on blood glucose w/not eating.Pt did verbalize understanding states she is going to try to cut down on alcohol intake. Pt did state that she had an iliac stent placed due to PAD a few weeks ago by who was notified about pt's admission and complaints. CTA of the neck was obtained per request which was negative. Pt to follow up with as need outpatient Today on exam, pt is doing well. Vitals and labs are stable. PT will d/c home today in stable condition. Pt was cleared by neurology for discharge home. Pt will f/u w/neurology in 2-3 weeks. Case discussed with Dr. Martinez who is in agreement with current d/c plan. Services Consulted Shrimp Header Consult - Completed -- 03/21/24 20:27:31 EDT Physical Exam General: NAD mildly anxious Skin: Warm, dry, no pallor noted. Head: Normocephalic, atraumatic Neck: No JVD Eye: PERRLA, EOMI, visual field intact ENT: Moist mucus membranes Cardiovascular: Regular rate normal peripheral perfusion Respiratory: No respiratory distress no accessory muscle use no obvious audible wheezing Chest Wall: no deformity Musculoskeletal: normal ROM, no deformity, no swelling GI: Soft no obvious distention. No rebound or rigidity. No guarding. No tenderness. Neurological: A&O moves all extremities equal strength and symmetry, upper extremity tremor bilaterally which is baseline, no focal neurological deficits Psychiatric: Cooperative and appropriate Tests Performed Brain MRI w/o Contrast CT Head or Brain w/o Contrast CTA Neck Echo w/ Saline Bubbles MRA Head w/o Contrast XR Chest Single View Discharge Plan Discharge Disposition Discharged to - Home independently Discharge Diet Discharge Diet(s): Calorie Controlled- 1800 Calorie Diet (03/22/24 16:18:00) Discharge Medication List Prescriptions estradiol 2 mg Tab, 2 mg= 1 tab(s), Oral, Bedtime, 3 refills hydrOXYzine hydrochloride 25 mg Tab, 25 mg= 1 tab(s), Oral, QID, PRN, 3 refills levothyroxine 150 mcg (0.15 mg) Tab, See Instructions Medtronic Insulin Pump 770G, See Instructions NovoLOG 100 units/mL injectable solution, See Instructions, 5 refills One Touch Delica Plus Lancets 33G, See Instructions, 5 refills One Touch Delica Plus Test Strips, See Instructions, 5 refills progesterone 100 mg oral capsule, 100 mg= 1 cap(s), Oral, Once a day (at bedtime), 3 refills propranolol 20 mg Tab, 20 mg= 1 tab(s), Oral, BID, 3 refills rosuvastatin 5 mg Tab, 5 mg= 1 tab(s), Oral, Daily, 1 refills Vitamin D 50,000 intl units (1.25 mg) oral capsule, 53686 International_Unit, Oral, qWeek, 3 refills Home aspirin 81 m (more content not included)... [facility] Comment on above: Result Comment: Elec tronically Signed By: Ghada CRUZ\.br\Date and Time Signed: 03/26/24 20:38 EDT\.br\Electronically Co-Signed By: Lee Martinez DO.br\Date and Time Co-Signed: 03/31/24 07:00 EDT 03-23-2024 Note Echocardiology Procedure Exam Date/Time Accession # Ordering Echo w/ Saline Bubbles 03/22/2024 09:41 EDT [id number] Ghada CRUZ CPT code [id number] Reason for Exam (Echo w/ Saline Bubbles) CVA Report [facility] [address] [place] [id number] Adult Echocardiogram Report Name: CARI HALE Study Date: 03/22/2024 08:34 AM BP: 117/77 mmHg Patient Location: [address] [place] [address] HR: 90 : 1965 Gender: Female Height: 15 in Age: 59 yrs Ethnicity: WHT Weight: 57 lb Reason For Study: CVA BSA: 0.40 m2 History: HTN,Diabetes,Smoker-Yes,COPD Ordering Physician: Lucita Performed By: Brisa Marie, MIKE, RVT Interpretation Summary Ejection Fraction = 55-60%. Normal LV and RV. No significant valve disease. Normal estimated PA pressure. Impaired diastolic relaxation. Negative bubble study for shunt. Procedure A complete two-dimensional transthoracic echocardiogram was performed (2D, M-mode, spectral and color flow Doppler). Study quality is good. Left Ventricle The left ventricle is normal in size. There is normal left ventricular wall thickness. Ejection Fraction = 55-60%. The left ventricular wall motion is normal. Grade I diastolic dysfunction, (abnormal relaxation pattern). Left Atrium The left atrial size is normal. Right Atrium Right atrial size is normal. Echocardiology Report Right Ventricle The right ventricular systolic function is normal. The right ventricle is normal size. The right ventricular wall motion is normal. Aortic Valve The aortic valve is trileaflet. No aortic regurgitation. There is no aortic stenosis. Mitral Valve The mitral valve is normal in structure and function. There is no mitral regurgitation noted. No mitral valve stenosis. Tricuspid Valve Structurally normal tricuspid valve. No evidence of tricuspid regurgitation. Right ventricular systolic pressure is normal. Pulmonic Valve No evidence of stenosis. There is no pulmonic valve regurgitation. Arteries The aortic root is normal in size. Normal ascending aorta. Pulmonary artery diameter is normal. Venous The inferior vena cava is normal in size, and collapses normally with respiration. Effusion There is no pericardial effusion. MMode/2D Measurements & Calculations RVDd: 2.3 cm LVIDd: 3.4 cm FS: 28.8 % Ao root diam: 2.5 cm IVSd: 1.1 cm LVIDs: 2.4 cm EDV(Teich): 47.1 ml LVPWd: 1.1 cm ESV(Teich): 20.4 ml Ao root area: 5.0 cm2 EF(Teich): 56.6 % LA dimension: 2.5 cm LVLd ap4: 6.7 cm EDV(MOD-sp2): 47.0 ml SV(MOD-sp4): 21.0 ml TAPSE: 1.4 cm EDV(MOD-sp4): 39.5 ml ESV(MOD-sp2): 20.6 ml LVLs ap4: 5.7 cm EF(MOD-sp2): 56.2 % ESV(MOD-sp4): 18.5 ml EF(MOD-sp4): 53.2 % IVC Diam: 1.3 cm RV Base_phl: 2.4 cm RVIDd/LVIDd: 0.69 EF (MOD-bp): 55.4 % RV Length_phl: 5.8 cm RV Mid_phl: 1.9 cm LA Vol Index: 59.5 ml/m2 Doppler Measurements & Calculations MV E max cassia: 75.3 cm/sec MV dec time: 0.18 sec Ao V2 max: 124.0 cm/sec LV V1 max P.7 mmHg MV A max cassia: 92.4 cm/sec Ao max P.2 mmHg LV V1 mean P.0 mmHg Echocardiology Report MV E/A: 0.81 Ao V2 mean: 86.3 cm/sec LV V1 max: 96.7 cm/sec Lat Peak E' Cassia: 8.1 cm/sec Ao mean P.0 mmHg LV V1 mean: 66.7 cm/sec E/E' Lat: 9.4 Ao V2 VTI: 23.0 cm LV V1 VTI: 17.7 cm Med Peak E' Cassia: 7.5 cm/sec E/E' Med: 10.0 RAP systole: 3.0 mmHg AV VR: 0.78 FINAL REPORT Dictated: 03/22/2024 8:34 am Adeola HANKS, Oren D. Signed (Electronic Signature): 03/23/2024 10:25 am Signed by: Adeola HANKS, Oren Callahan Transcribed by: [facility] Technologist: DORENE Sahu [facility] 03-22-2024 Hospital Discharg e instructions Patient Education 03/22/2024 16:19:36 Alcohol Misuse and Dependence Information, Adult Alcohol Misuse and Dependence Information, Adult Alcohol is a widely available drug and people choose to drink alcohol in different amounts. Alcohol misuse and dependence can have a negative effect on your life. Alcohol misuse is when you use alcohol too much or too often. You may have a hard time setting a limit on the amount you drink. Alcohol dependence is when you use alcohol consistently for a period of time, and your body changes as a result. Alcohol dependence can make it hard for you to stop drinking because you may start to feel sick or different when you do not drink alcohol. These symptoms are known as withdrawal. People who drink alcohol very often and in large amounts, may develop what is called an alcohol use disorder. How can alcohol misuse and dependence affect me? Drinking too much can lead to addiction. You may feel like you need alcohol to function normally. You may drink alcohol before work in the morning, during the day, or as soon as you get home from work in the evening. These actions can result in: Poor work performance. Job loss. Financial problems. Car crashes or criminal charges from driving after drinking alcohol. Problems in your relationships with friends and family. Losing the trust and respect of coworkers, friends, and family. Drinking heavily over a long period of time can permanently damage your body and brain, and can cause lifelong health issues, such as: Damage to your liver or pancreas. Heart problems, high blood pressure, or stroke. Certain cancers. Decreased ability to fight infections. Brain or nerve damage. Depression. Early , also called premature . If you are careless or you crave alcohol, it is easy to drink more than your body can handle (overdose). Alcohol overdose is a serious situation that requires hospitalization. It may lead to permanent injuries or . What can increase my risk? Having a family history of alcohol misuse. Having depression or other mental health conditions. Beginning to drink at an early age. Binge drinking often. Experiencing trauma, stress, and an unstable home life during childhood. Spending time with people who drink often. What actions can I take to prevent alcohol misuse and dependence? Do not drink alcohol if: ?Your health care provider tells you not to drink. ?You are , may be , or are planning to become . If you drink alcohol: ?Limit how much you have to: ?0 1 drink a day for women who are not . ?0 2 drinks a day for men. ?Know how much alcohol is in your drink. In the [place] one drink equals one 12 oz bottle of beer (355 mL), one 5 oz glass of wine (148 mL), or one 1 oz glass of hard liquor (44 mL). If you think you have an alcohol dependency problem, decide to stop drinking. This can be very hard to do if you are used to frequently drinking alcohol. If you begin to have withdrawal symptoms, talk with your health care provider or a person that you trust. These symptoms may include anxiety, shaky hands, headache, nausea, sweating, or not being able to sleep. Choose to drink nonalcoholic beverages in social gatherings and places where there may be alcohol. Activity Spend more time on activities that you enjoy that do not involve alcohol, like hobbies or exercise. Find healthy ways to cope with stress, such as meditation or spending time with people you care about. General information Talk to your family, coworkers, and friends about supporting you in your efforts to stop drinking. If they drink, ask them not to drink around you. Spend more time with people who do not drink alcohol. If you think that you have an alcohol dependency problem: ?Tell friends or family about your concerns. ?Talk with your health care provider or another health professional about where to get help. ?Work with a therapist and a chemical dependency counselor. ?Consider joining a support group for people who struggle with alcohol misuse and dependence. Where to find support Your health care provider. SMART Recovery: smartrecovery.org Local treatment centers or chemical dependency counselors. Local AA groups in your community: aa.org Where to find more information Centers for Disease Control and Prevention: cdc.gov National [place] on Alcohol Abuse and Alcoholism: niaaa.nih.gov Alcoholics Anonymous (AA): aa.org Contact a health care provider if: You drank more or for longer than you intended on more than one occasion. You often drink to the point of vomiting or passing out. You have problems in your life due to drinking, but you continue to drink. You keep drinking even though you feel anxious, depressed, or have experienced memory loss. You have stopped doing the things you used to enjoy in order to drink. You have to drink more than you used to in order to get the effect you want. You experience anxiety, sweating, nausea, shakiness, and trouble sleeping when you try to stop drinking. Get help right away if: You have serious withdrawal symptoms, including: ?Confusion. ?Racing heart. ?High blood pressure. ?Fever. These symptoms may be an emergency. Get help right away. Call 911. Do not wait to see if the symptoms will go away. Do not drive yourself to the hospital. Also, get help right away if: You have thoughts about hurting yourself or others. Take one of these steps if you feel like you may hurt yourself or others, or have thoughts about taking your own life: Call 911. Call the National Suicide Prevention Lifeline at or 952. This is open 24 hours a day. Text the Crisis Text Line at 119370. Summary Alcohol misuse and dependence can have a negative effect on your life. Drinking too much or too often can lead to addiction. If you drink alcohol, limit how much you use. If you are having trouble keeping your drinking under control, find ways to change your behavior. Hobbies, calming activities, exercise, or support groups can help. If you feel you need help with changing your drinking habits, talk with your health care provider, a good friend, or a therapist, or go to a support group. This information is not intended to replace advice given to you by your health care provider. Make sure you discuss any questions you have with your health care provider. Document Revised: 09/23/2022 Document Reviewed: 09/23/2022 [employer] Patient Education 2022 [employer] 03/22/2024 16:19:36 High Cholesterol High Cholesterol High cholesterol is a condition in which the blood has high levels of a white, waxy substance similar to fat (cholesterol). The liver makes all the cholesterol that the body needs. The human body needs small amounts of cholesterol to help build cells. A person gets extra or excess cholesterol from the food that he or she eats. The blood carries cholesterol from the liver to the rest of the body. If you have high cholesterol, deposits (plaques) may build up on the booker of your arteries. Arteries are the blood vessels that carry blood away from your heart. These plaques make the arteries narrow and stiff. Cholesterol plaques increase your risk for heart attack and stroke. Work with your health care provider to keep your cholesterol levels in a healthy range. What increases the risk? The following factors may make you more likely to develop this condition: Eating foods that are high in animal fat (saturated fat) or cholesterol. Being overweight. Not getting enough exercise. A family history of high cholesterol (familial hypercholesterolemia). Use of tobacco products. Having diabetes. What are the signs or symptoms? In most cases, high cholesterol does not usually cause any symptoms. In severe cases, very high cholesterol levels can cause: Fatty bumps under the skin (xanthomas). A white or tejada ring around the black center (pupil) of the eye. How is this diagnosed? This condition may be diagnosed based on the results of a blood test. If you are older than 20 years of age, your health care provider may check your cholesterol levels every 4 6 years. You may be checked more often if you have high cholesterol or other risk factors for heart disease. The blood test for cholesterol measures: Bad cholesterol, or LDL cholesterol. This is the main type of cholesterol that causes heart disease. The desired level is less than 100 mg/dL (2.59 mmol/L). Good cholesterol, or HDL cholesterol. HDL helps protect against heart disease by cleaning the arteries and carrying the LDL to the liver for processing. The desired level for HDL is 60 mg/dL (1.55 mmol/L) or higher. Triglycerides. These are fats that your body can store or burn for energy. The desired level is less than 150 mg/dL (1.69 mmol/L). Total cholesterol. This measures the total amount of cholesterol in your blood and includes LDL, HDL, and triglycerides. The desired level is less than 200 mg/dL (5.17 mmol/L). How is this treated? Treatment for high cholesterol starts with lifestyle changes, such as diet and exercise. Diet changes. You may be asked to eat foods that have more fiber and less saturated fats or added sugar. Lifestyle changes. These may include regular exercise, maintaining a healthy weight, and quitting use of tobacco products. Medicines. These are given when diet and lifestyle changes have not worked. You may be prescribed a statin medicine to help lower your cholesterol levels. Follow these instructions at home: Eating and drinking Eat a healthy, balanced diet. This diet includes: ? Daily servings of a variety of fresh, frozen, or canned fruits and vegetables. ?Daily servings of whole grain foods that are rich in fiber. ?Foods that are low in saturated fats and trans fats. These include poultry and fish without skin, lean cuts of meat, and low-fat dairy products. ?A variety of fish, especially oily fish that contain omega-3 fatty acids. Aim to eat fish at least 2 times a week. Avoid foods and drinks that have added sugar. Use healthy cooking methods, such as roasting, grilling, broiling, baking, poaching, steaming, and stir-frying. Do not barron your food except for stir-frying. If you drink alcohol: ?Limit how much you have to: ?0 1 drink a day for women who are not . ?0 2 drinks a day for men. ?Know how much alcohol is in a drink. In the [place] one drink equals one 12 oz bottle of beer (355 mL), one 5 oz glass of wine (148 mL), or one 1 oz glass of hard liquor (44 mL). Lifestyle Get regular exercise. Aim to exercise for a total of 150 minutes a week. Increase your activity level by doing activities such as gardening, walking, and taking the stairs. Do not use any products that contain nicotine or tobacco. These products include cigarettes, chewing tobacco, and vaping devices, such as e-cigarettes. If you need help quitting, ask your health care provider. General instructions Take kekr-jhv-pxttjpl and prescription medicines only as told by your health care provider. Keep all follow-up visits. This is important. Where to find more information [place] [employer]: www.heart.org National Heart, Lung, and Blood [place]: www.nhlbi.nih.gov Contact a health care provider if: You have trouble achieving or maintaining a healthy diet or weight. You are starting an exercise program. You are unable to stop smoking. Get help right away if: You have chest pain. You have trouble breathing. You have discomfort or pain in your jaw, neck, back, shoulder, or arm. You have any symptoms of a stroke. BE FAST is an easy way to remember the main warning signs of a stroke: ?B - Balance. Signs are dizziness, sudden trouble walking, or loss of balance. ?E - Eyes. Signs are trouble seeing or a sudden change in vision. ?F - Face. Signs are sudden weakness or numbness of the face, or the face or eyelid drooping on one side. ?A - Arms. Signs are weakness or numbness in an arm. This happens suddenly and usually on one side of the body. ?S - Speech. Signs are sudden trouble speaking, slurred speech, or trouble understanding what people say. ?T - Time. Time to call emergency services. Write down what time symptoms started. You have other signs of a stroke, such as: ?A sudden, severe headache with no known cause. ?Nausea or vomiting. ?Seizure. These symptoms may represent a serious problem that is an emergency. Do not wait to see if the symptoms will go away. Get medical help right away. Call your local emergency services (911 in the [place] Do not drive yourself to the hospital. Summary Cholesterol plaques increase your risk for heart attack and stroke. Work with your health care provider to keep your cholesterol levels in a healthy range. Eat a healthy, balanced diet, get regular exercise, and maintain a healthy weight. Do not use any products that contain nicotine or tobacco. These products include cigarettes, chewing tobacco, and vaping devices, such as e-cigarettes. Get help right away if you have any symptoms of a stroke. This information is not intended to replace advice given to you by your health care provider. Make sure you discuss any questions you have with your health care provider. Document Revised: 10/02/2021 Document Reviewed: 09/22/2021 [employer] Patient Education 2022 [employer] 03/22/2024 16:19:36 Type 2 Diabetes Mellitus, Diagnosis, Adult Type 2 Diabetes Mellitus, Diagnosis, Adult Type 2 diabetes (type 2 diabetes mellitus) is a long-term, or chronic, disease. In type 2 diabetes, one or both of these problems may be present: The pancreas does not make enough of a hormone called insulin. Cells in the body do not respond properly to the insulin that the body makes (insulin resistance). Normally, insulin allows blood sugar (glucose) to enter cells in the body. The cells use glucose for energy. Insulin resistance or lack of insulin causes excess glucose to build up in the blood instead of going into cells. This causes high blood glucose (hyperglycemia). What are the causes? The exact cause of type 2 diabetes is not known. What increases the risk? The following factors may make you more likely to develop this condition: Having a family member with type 2 diabetes. Being overweight or obese. Being inactive (sedentary). Having been diagnosed with insulin resistance. Having a history of prediabetes, diabetes when you were (gestational diabetes), or polycystic ovary syndrome (PCOS). What are the signs or symptoms? In the early stage of this condition, you may not have symptoms. Symptoms develop slowly and may include: Increased thirst or hunger. Increased urination. Unexplained weight loss. Tiredness (fatigue) or weakness. Vision changes, such as blurry vision. Dark patches on the skin. How is this diagnosed? This condition is diagnosed based on your symptoms, your medical history, a physical exam, and your blood glucose level. Your blood glucose may be checked with one or more of the following blood tests: A fasting blood glucose (FBG) test. You will not be allowed to eat (you will fast) for 8 hours or longer before a blood sample is taken. A random blood glucose test. This test checks blood glucose at any time of day regardless of when you ate. An A1C (hemoglobin A1C) blood test. This test provides information about blood glucose levels over the previous 2 3 months. An oral glucose tolerance test (OGTT). This test measures your blood glucose at two times: ?After fasting. This is your baseline blood glucose level. ?Two hours after drinking a beverage that contains glucose. You may be diagnosed with type 2 diabetes if: Your fasting blood glucose level is 126 mg/dL (7.0 mmol/L) or higher. Your random blood glucose level is 200 mg/dL (11.1 mmol/L) or higher. Your A1C level is 6.5% or higher. Your oral glucose tolerance test result is higher than 200 mg/dL (11.1 mmol/L). These blood tests may be repeated to confirm your diagnosis. How is this treated? Your treatment may be managed by a specialist called an fill manager. Type 2 diabetes may be treated by following instructions from your health care provider about: Making dietary and lifestyle changes. These may include: ?Following a personalized nutrition plan that is developed by a registered dietitian. ?Exercising regularly. ?Finding ways to manage stress. Checking your blood glucose level as often as told. Taking diabetes medicines or insulin daily. This helps to keep your blood glucose levels in the healthy range. Taking medicines to help prevent complications from diabetes. Medicines may include: ?Aspirin. ?Medicine to lower cholesterol. ?Medicine to control blood pressure. Your health care provider will set treatment goals for you. Your goals will be based on your age, other medical conditions you have, and how you respond to diabetes treatment. Generally, the goal of treatment is to maintain the following blood glucose levels: Before meals: 80 130 mg/dL (4.4 7.2 mmol/L). After meals: below 180 mg/dL (10 mmol/L). A1C level: less than 7%. Follow these instructions at home: Questions to ask your health care provider Consider asking the following questions: Should I meet with a certified diabetes care and paraprofessional education assistant? What diabetes medicines do I need, and when should I take them? What equipment will I need to manage my diabetes at home? How often do I need to check my blood glucose? Where can I find a support group for people with diabetes? What number can I call if I have questions? When is my next appointment? General instructions Take fbmh-drb-[id number] and prescription medicines only as told by your health care provider. Keep all follow-up visits. This is important. Where to find more information For help and guidance and for more information about diabetes, please visit: [place] Diabetes Association (ADA): www.diabetes.org [place] [employer] and Education Specialists (ADCES): www.diabeteseducator.org International Diabetes Federation (IDF): www.idf.org Contact a health care provider if: Your blood glucose is at or above 240 mg/dL (13.3 mmol/L) for 2 days in a row. You have been sick or have had a fever for 2 days or longer, and you are not getting better. You have any of the following problems for more than 6 hours: ?You cannot eat or drink. ?You have nausea and vomiting. ?You have diarrhea. Get help right away if: You have severe hypoglycemia. This means your blood glucose is lower than 54 mg/dL (3.0 mmol/L). You become confused or you have trouble thinking clearly. You have difficulty breathing. You have moderate or large ketone levels in your urine. These symptoms may represent a serious problem that is an emergency. Do not wait to see if the symptoms will go away. Get medical help right away. Call your local emergency services (911 in the [place] Do not drive yourself to the hospital. Summary Type 2 diabetes mellitus is a long-term, or chronic, disease. In type 2 diabetes, the pancreas does not make enough of a hormone called insulin, or cells in the body do not respond properly to insulin that the body makes. This condition is treated by making dietary and lifestyle changes and taking diabetes medicines or insulin. Your health care provider will set treatment goals for you. Your goals will be based on your age, other medical conditions you have, and how you respond to diabetes treatment. Keep all follow-up visits. This is important. This information is not intended to replace advice given to you by your health care provider. Make sure you discuss any questions you have with your health care provider. Document Revised: 10/13/2021 Document Reviewed: 10/13/2021 [employer] Patient Education 2022 [employer]. 03/22/2024 16:19:36 Hypertension, Adult, Goiu-om-Uilg Hypertension, Adult Hypertension is another name for high blood pressure. High blood pressure forces your heart to work harder to pump blood. This can cause problems over time. There are two numbers in a blood pressure reading. There is a top number (systolic) over a bottom number (diastolic). It is best to have a blood pressure that is below 120/80. What are the causes? The cause of this condition is not known. Some other conditions can lead to high blood pressure. What increases the risk? Some lifestyle factors can make you more likely to develop high blood pressure: Smoking. Not getting enough exercise or physical activity. Being overweight. Having too much fat, sugar, calories, or salt (sodium) in your diet. Drinking too much alcohol. Other risk factors include: Having any of these conditions: ?Heart disease. ?Diabetes. ? High cholesterol. ?Kidney disease. ?Obstructive sleep apnea. Having a family history of high blood pressure and high cholesterol. Age. The risk increases with age. Stress. What are the signs or symptoms? High blood pressure may not cause symptoms. Very high blood pressure (hypertensive crisis) may cause: Headache. Fast or uneven heartbeats (palpitations). Shortness of breath. Nosebleed. Vomiting or feeling like you may vomit (nauseous). Changes in how you see. Very bad chest pain. Feeling dizzy. Seizures. How is this treated? This condition is treated by making healthy lifestyle changes, such as: ?Eating healthy foods. ?Exercising more. ?Drinking less alcohol. Your doctor may prescribe medicine if lifestyle changes do not help enough and if: ?Your top number is above 130. ?Your bottom number is above 80. Your personal target blood pressure may vary. Follow these instructions at home: Eating and drinking If told, follow the DASH eating plan. To follow this plan: ?Fill one half of your plate at each meal with fruits and vegetables. ?Fill one fourth of your plate at each meal with whole grains. Whole grains include whole-wheat pasta, brown rice, and whole-grain bread. ?Eat or drink low-fat dairy products, such as skim milk or low-fat yogurt. ?Fill one fourth of your plate at each meal with low-fat (lean) proteins. Low-fat proteins include fish, chicken without skin, eggs, beans, and tofu. ?Avoid fatty meat, cured and processed meat, or chicken with skin. ?Avoid pre-made or processed food. Limit the amount of salt in your diet to less than 1,500 mg each day. Do not drink alcohol if: ?Your doctor tells you not to drink. ?You are , may be , or are planning to become . If you drink alcohol: ?Limit how much you have to: ?0 1 drink a day for women. ?0 2 drinks a day for men. ?Know how much alcohol is in your drink. In the [place] one drink equals one 12 oz bottle of beer (355 mL), one 5 oz glass of wine (148 mL), or one 1 oz glass of hard liquor (44 mL). Lifestyle Work with your doctor to stay at a healthy weight or to lose weight. Ask your doctor what the best weight is for you. Get at least 30 minutes of exercise that causes your heart to beat faster (aerobic exercise) most days of the week. This may include walking, swimming, or biking. Get at least 30 minutes of exercise that strengthens your muscles (resistance exercise) at least 3 days a week. This may include lifting weights or doing Pilates. Do not smoke or use any products that contain nicotine or tobacco. If you need help quitting, ask your doctor. Check your blood pressure at home as told by your doctor. Keep all follow-up visits. Medicines Take nxhr-ngc-idvbbsg and prescription medicines only as told by your doctor. Follow directions carefully. Do not skip doses of blood pressure medicine. The medicine does not work as well if you skip doses. Skipping doses also puts you at risk for problems. Ask your doctor about side effects or reactions to medicines that you should watch for. Contact a doctor if: You think you are having a reaction to the medicine you are taking. You have headaches that keep coming back. You feel dizzy. You have swelling in your ankles. You have trouble with your vision. Get help right away if: You get a very bad headache. You start to feel mixed up (confused). You feel weak or numb. You feel faint. You have very bad pain in your: ?Chest. ?Belly (abdomen). You vomit more than once. You have trouble breathing. These symptoms may be an emergency. Get help right away. Call 911. Do not wait to see if the symptoms will go away. Do not drive yourself to the hospital. Summary Hypertension is another name for high blood pressure. High blood pressure forces your heart to work harder to pump blood. For most people, a normal blood pressure is less than 120/80. Making healthy choices can help lower blood pressure. If your blood pressure does not get lower with healthy choices, you may need to take medicine. This information is not intended to replace advice given to you by your health care provider. Make sure you discuss any questions you have with your health care provider. Document Revised: 05/07/2022 Document Reviewed: 05/07/2022 [employer] Patient Education 2022 [employer]. 03/22/2024 16:19:36 Smoking Tobacco Information, Adult Smoking Tobacco Information, Adult Smoking tobacco can be harmful to your health. Tobacco contains a toxic colorless chemical called nicotine. Nicotine causes changes in your brain that make you want more and more. This is called addiction. This can make it hard to stop smoking once you start. Tobacco also has other toxic chemicals that can hurt your body and raise your risk of many cancers. Menthol or lite tobacco or cigarette brands are not safer than regular brands. How can smoking tobacco affect me? Smoking tobacco puts you at risk for: Cancer. Smoking is most commonly associated with lung cancer, but can also lead to cancer in other parts of the body. Chronic obstructive pulmonary disease (COPD). This is a long-term lung condition that makes it hard to breathe. It also gets worse over time. High blood pressure (hypertension), heart disease, stroke, heart attack, and lung infections, such as pneumonia. Cataracts. This is when the lenses in the eyes become clouded. Digestive problems. This may include peptic ulcers, heartburn, and gastroesophageal reflux disease (GERD). Oral health problems, such as gum disease, mouth sores, and tooth loss. Loss of taste and smell. Smoking also affects how you look and smell. Smoking may cause: Wrinkles. Yellow or stained teeth, fingers, and fingernails. Bad breath. Bad-smelling clothes and hair. Smoking tobacco can also affect your social life, because: It may be challenging to find places to smoke when away from home. Many workplaces, restaurants, hotels, and public places are tobacco-free. Smoking is expensive. This is due to the cost of tobacco and the long-term costs of treating health problems from smoking. Secondhand smoke may affect those around you. Secondhand smoke can cause lung cancer, breathing problems, and heart disease. Children of smokers have a higher risk for: ?Sudden infant syndrome (SIDS). ?Ear infections. ?Lung infections. What actions can I take to prevent health problems? Quit smoking Do not start smoking. Quit if you already smoke. Do not replace cigarette smoking with vaping devices, such as e-cigarettes. Make a plan to quit smoking and commit to it. Look for programs to help you, and ask your health care provider for recommendations and ideas. Set a date and write down all the reasons you want to quit. Let your friends and family know you are quitting so they can help and support you. Consider finding friends who also want to quit. It can be easier to quit with someone else, so that you can support each other. Talk with your health care provider about using nicotine replacement medicines to help you quit. These include gum, lozenges, patches, sprays, or pills. If you try to quit but return to smoking, stay positive. It is common to slip up when you first quit, so take it one day at a time. Be prepared for cravings. When you feel the urge to smoke, chew gum or suck on hard candy. Lifestyle Stay busy. Take care of your body. Get plenty of exercise, eat a healthy diet, and drink plenty of water. Find ways to manage your stress, such as meditation, yoga, exercise, or time spent with friends and family. Ask your health care provider about having regular tests (screenings) to check for cancer. This may include blood tests, imaging tests, and other tests. Where to find support To get support to quit smoking, consider: Asking your health care provider for more information and resources. Joining a support group for people who want to quit smoking in your local community. There are many effective programs that may help you to quit. Calling the smokefree.gov counselor helpline at 7-378-MMPWNOW ( ). Where to find more information You may find more information about quitting smoking from: Centers for Disease Control and Prevention: cdc.gov/tobacco Smokefree.gov: smokefree.gov [place] [employer] Association: freedomfromsmoking.org Contact a health care provider if: You have problems breathing. Your lips, nose, or fingers turn blue. You have chest pain. You are coughing up blood. You feel like you will faint. You have other health changes that cause you to worry. Summary Smoking tobacco can negatively affect your health, the health of those around you, your finances, and your social life. Do not start smoking. Quit if you already smoke. If you need help quitting, ask your health care provider. Consider joining a support group for people in your local community who want to quit smoking. There are many effective programs that may help you to quit. This information is not intended to replace advice given to you by your health care provider. Make sure you discuss any questions you have with your health care provider. Document Revised: 07/14/2022 Document Reviewed: 07/14/2022 [employer] Patient Education 2022 [employer]. 03/22/2024 16:19:36 Core Measures Transient Ischemic [place] (TIA) [facility] [place] Transient Ischemic Attack You have had a transient ischemic attack (TIA). This means that the nervous system did not work properly for a short time. It is caused by a low oxygen supply to an area of your brain. It may be caused by a small blood clot or hardening of the arteries. This is a temporary neurologic condition. It usually gets better within thirty minutes, but always within twenty-four hours. If this does not resolve within that time period, it is defined as a stroke. TIA's are warning signs that you are at risk for having a stroke. A small percentage of patients who have had a TIA will have a stroke within a couple days, and up to 20% will have a stroke within 3 months. PREVENTION The likelihood of a stroke can be decreased by appropriate treatment of high blood pressure, high cholesterol, diabetes, and by stopping smoking. RISK FACTORS: If you have been told by your doctor or nurse practitioner that you have any of the following risk factors for stroke, work with your health care program resident to control them. Risk Factors: High Blood Pressure: High blood pressure is one of the main causes of stroke. It is the most important risk factor to control. Take your blood pressure medication, lose weight, increase your activity, and limit your salt intake to help control your blood pressure.Take your your blood pressure and write it down and then take them to your next doctor's appointment. Smoking: If you smoke: QUIT! We can help. Please call [facility] at [phone] ([facility] [place]), or [phone], ext. [phone] Diabetes: Work with your healthcare professional to keep your blood sugar under control. Check your blood sugar and take the results to your next doctor's visit. Take your medications as directed. Eating a healthy diet and exercising will also help keep your diabetes under control. For information on [facility] please call, . Carotid or other Artery Diseases: The carotid arteries in your neck carry blood to the brain. A stroke can be caused by a blood clot blocking an artery that has been damaged by a fatty buildup inside the artery wall. Discuss ways to manage this with your health care provider. Atrial Fibrillation (A Fib): In A fib, your heart does not have a normal beat. This may allow clots to form and puts you at a greater risk for having a stroke. Work with your health care provider to control your A fib. Your doctor may order special medication that helps prevent clots from forming. High blood cholesterol or high blood fats: High cholesterol increases your risk of stroke. Exercise regularly, but talk to your health care provider first. A diet low in fat and cholesterol can help. If you have any questions about a low fat, low cholesterol diet, you can call our [employer] cupola patcher helper at [phone]. The goal for total cholesterol is less than 200, and for LDL or the bad cholesterol is less than 100. Lifestyle Management: You increase your risk of stroke if you are overweight or obese, are not very active, or drink too much alcohol. Enjoy a diet rich in fruits and vegetables. Exercise regularly and drink alcohol in moderation or no more than two drinks a day for men and no more than one drink a day for non- women, or don't drink at all. This will help decrease your risk of stroke. Oral Contraceptives: Taking control pills or the pill can be a risk factor for stroke especially if you smoke. Discuss using the oral contraceptives and your risk of stroke with your health care program resident. If this is your first ischemic attack, you will need further evaluation by your caregiver. You may need appropriate treatment and lifestyle changes as recommended. A certain number of patients with TIA go on to develop a stroke. It is very important that you follow up, as instructed, with your caregiver or a specialist in order to continue your evaluation and decide on a course of treatment. The failure to follow up in the time frame indicated by your caregiver may lead to worsening of your condition and permanent disability and possible .If you develop signs and symptoms of a stroke, TIME IS OF THE ESSENCE! Call 911. Medications to dissolve a blood clot can only be used within four and a half hours of the onset of symptoms.After that time, treatment of stroke depends on duration of symptoms, severity, and cause. It s important to know and control your risk factors, but it is also important to recognize the signs and symptoms of stroke/TIA and know what to do: Call 911 if any of these things happen: Sudden numbness or weakness of the face, arm, or leg especially on one side of the body. Sudden confusion, trouble speaking, or understanding. Sudden trouble seeing in one or both eyes. Sudden trouble walking, dizziness, loss of balance or coordination Sudden severe headache with no known cause * It is very important for you to follow-up with your Primary Care Doctor and your Neurologist after you go home. Make sure that you keep your doctor visits. Remember: TIME LOST is BRAIN LOST Resources: for more information on strokes, log onto [email or web address] or www.[email or web address].org or call the [place] [employer] at . Revised 08/201803/22/2024 16:19:36 Core Measures: Stroke (Cerebrovascular Accident) [facility] [place] Stroke (Cerebrovascular Accident) A stroke is acute of brain tissue, and it is a neurologic emergency. A stroke can cause permanent loss of function of the central nervous system (brain). If the symptoms of a stroke end without complications in 24 hours, it is diagnosed as a transient ischemic attack (TIA). If the symptoms are not resolved within 24 hours, it is defined as a stroke. CAUSES A stroke is caused by a decrease of oxygen supply to an area of your brain. It is usually the result of a small blood clot or hardening of the arteries. Blockages in, or damage to, the carotid arteries leading to the brain can also cause a stroke. Bleeding in the brain can cause, or accompany, a stroke. SYMPTOMS These symptoms usually develop suddenly (or may be newly present upon awakening from sleep): Loss of vision. Double vision. Confusion. Numbness or weakness on one side of the face or body. Inability to speak (aphasia). DIAGNOSIS Your caregiver can often determine the presence or absence of a stroke based on your symptoms, history, and examination. A CT scan of the brain is usually performed to confirm the stroke, look for causes, and determine the severity. Other tests may be done to find the cause of the stroke, including: An EKG and heart monitoring. An echocardiogram (ultrasound evaluation of the heart). An ultrasound evaluation of your carotid arteries. Determination of blood oxygen level and blood tests. PREVENTION The likelihood of a stroke can be decreased by appropriate treatment of high blood pressure, high cholesterol, diabetes, and by stopping smoking. RISK FACTORS: If you have been told by your doctor or nurse practitioner that you have any of the following risk factors for stroke, work with your health care program resident to control them. High Blood Pressure: High blood pressure is one of the main causes of stroke. It is the most important risk factor to control. Take your blood pressure medication, lose weight, increase your activity, and limit your salt intake to help control your blood pressure.Take your your blood pressure and write it down and then take them to your next doctor's appointment. Smoking: If you smoke: QUIT! We can help. Please call [facility] at [phone] ([facility] [place]), or [phone], ext. [phone] Diabetes: Work with your healthcare professional to keep your blood sugar under control. Check your blood sugar and take the results to your next doctor's visit. Take your medications as directed. Eating a healthy diet and exercising will also help keep your diabetes under control. For information on [facility] please call, . Carotid or other Artery Diseases: The carotid arteries in your neck carry blood to the brain. A stroke can be caused by a blood clot blocking an artery that has been damaged by a fatty buildup inside the artery wall. Discuss ways to manage this with your health care provider. Atrial Fibrillation (A Fib): In A fib, your heart does not have a normal beat. This may allow clots to form and puts you at a greater risk for having a stroke. Work with your health care provider to control your A fib. Your doctor may order special medication that helps prevent clots from forming. High blood cholesterol or high blood fats: High cholesterol increases your risk of stroke. Exercise regularly, but talk to your health care provider first. A diet low in fat and cholesterol can help. If you have any questions about a low fat, low cholesterol diet, you can call our [facility] cupola patcher helper at [phone] Ext. [phone]. The goal for total cholesterol is less than 200, and for LDL or the bad cholesterol is less than 100. Lifestyle Management: You increase your risk of stroke if you are overweight or obese, are not very active, or drink too much alcohol. Enjoy a diet rich in fruits and vegetables. Exercise regularly and drink alcohol in moderation or no more than two drinks a day for men and no more than one drink a day for non- women, or don't drink at all. This will help decrease your risk of stroke. Oral Contraceptives: Taking control pills or the pill can be a risk factor for stroke especially if you smoke. Discuss using the oral contraceptives and your risk of stroke with your health care program resident. TREATMENT TIME IS OF THE ESSENCE! Medications to dissolve a blood clot can only be used within four and a half hours of the onset of symptoms. After that time, treatment of stroke depends on duration of symptoms, severity, and cause. Medications and diet measures may be used to address diabetes, high blood pressure, and other risk factors. Physical therapy, speech therapy, and occupational therapy specialists will assess you and work to improve any functions impaired by the stroke. Measures will be taken to prevent short and terminal computer operator complications, including aspiration pneumonia, blood clots in the legs, bedsores, and falls. HOME CARE INSTRUCTIONS Care at home after a stroke can be complicated. Medications Blood thinners may be used to prevent another stroke. Blood thinners need to be used exactly as instructed. Medicines may also be used to control risk factors for a stroke. Be sure you understand all your medication instructions. It is very important to not run out of your medicine. Get more while you still have a one-week supply. Do not stop taking your medicine without speaking to your healthcare professional. Take all of your medications or an updated list of your medications to all of your doctor's appointments. Physical, occupational, and speech therapy Ongoing therapy is often necessary to maximize recovery after a stroke. If you have been advised to use a walker or a cane, use it at all times. Be sure you keep your therapy appointments. Diet Certain diets may be prescribed to address high blood pressure, high cholesterol, or diabetes. Foods may need to be a special consistency (soft, pureed, small bites) to avoid food going into your lungs or choking. Home safety A safe home environment is important to reduce the risk of falls. Your caregiver may arrange for specialists to evaluate your home. Grab bars in the bedroom and bathroom are often important. Your caregiver may arrange for special equipment to be used at home, such as raised toilets and a seat for the shower. It s important to know and control your risk factors, but it is also important to recognize the signs and symptoms of stroke/TIA and know what to do: Call 911 if any of these things happen: Sudden numbness or weakness of the face, arm, or leg especially on one side of the body. Sudden confusion, trouble speaking, or understanding. Sudden trouble seeing in one or both eyes. Sudden trouble walking, dizziness, loss of balance or coordination Sudden severe headache with no known cause * It is very important for you to follow-up with your Primary Care Doctor and your Neurologist after you go home. Make sure that you keep your doctor visits. Remember: TIME LOST is BRAIN LOST Resources: for more information on strokes, log onto [email or web address] or [email or web address] or call the [place] at . Revised 08/2018 Follow Up Care 03/21/2024 13:41:56 With:Jesse Carr MD, NEU Address: [facility] [address] [place], [place] [address] [address]- When:2 to 4 weeks [facility] 03-22-2024 Note GetWell Learning Par ticipants Patient GetWell Understands Education Yes GetWell Education Video Getting Help When You Leave the Hospital [facility] 03-22-2024 Note GetWell Understands Education Yes GetWell Education Video After a Hospital Stay: Managing Appointments GetWell Learning Participants Patient [facility] 03-22-2024 Note GetWell Understands Education Yes GetWell Education Video Avoiding Infections in the Hospital GetWell Learning Participants Patient [facility] 03-22-2024 Note Patient Education - Text Transient Ischemic Attack You have had a transient ischemic attack (TIA). This means that the nervous system did not work properly for a short time. It is caused by a low oxygen supply to an area of your brain. It may be caused by a small blood clot or hardening of the arteries. This is a temporary neurologic condition. It usually gets better within thirty minutes, but always within twenty-four hours. If this does not resolve within that time period, it is defined as a stroke. TIA's are warning signs that you are at risk for having a stroke. A small percentage of patients who have had a TIA will have a stroke within a couple days, and up to 20% will have a stroke within 3 months. PREVENTION The likelihood of a stroke can be decreased by appropriate treatment of high blood pressure, high cholesterol, diabetes, and by stopping smoking. RISK FACTORS: If you have been told by your doctor or nurse practitioner that you have any of the following risk factors for stroke, work with your health care program resident to control them. Risk Factors: High Blood Pressure: High blood pressure is one of the main causes of stroke. It is the most important risk factor to control. Take your blood pressure medication, lose weight, increase your activity, and limit your salt intake to help control your blood pressure.Take your your blood pressure and write it down and then take them to your next doctor's appointment. Smoking: If you smoke: QUIT! We can help. Please call [facility] at [phone] ([facility] [place]), or [phone], ext. [phone] Diabetes: Work with your healthcare professional to keep your blood sugar under control. Check your blood sugar and take the results to your next doctor's visit. Take your medications as directed. Eating a healthy diet and exercising will also help keep your diabetes under control. For information on [facility] please call, . Carotid or other Artery Diseases: The carotid arteries in your neck carry blood to the brain. A stroke can be caused by a blood clot blocking an artery that has been damaged by a fatty buildup inside the artery wall. Discuss ways to manage this with your health care provider. Atrial Fibrillation (A Fib): In A fib, your heart does not have a normal beat. This may allow clots to form and puts you at a greater risk for having a stroke. Work with your health care provider to control your A fib. Your doctor may order special medication that helps prevent clots from forming. High blood cholesterol or high blood fats: High cholesterol increases your risk of stroke. Exercise regularly, but talk to your health care provider first. A diet low in fat and cholesterol can help. If you have any questions about a low fat, low cholesterol diet, you can call our [facility] patcher helper at [phone] Ext [phone]. The goal for total cholesterol is less than 200, and for LDL or the bad cholesterol is less than 100. Lifestyle Management: You increase your risk of stroke if you are overweight or obese, are not very active, or drink too much alcohol. Enjoy a diet rich in fruits and vegetables. Exercise regularly and drink alcohol in moderation or no more than two drinks a day for men and no more than one drink a day for non- women, or don't drink at all. This will help decrease your risk of stroke. Oral Contraceptives: Taking control pills or the pill can be a risk factor for stroke especially if you smoke. Discuss using the oral contraceptives and your risk of stroke with your health care program resident. If this is your first ischemic attack, you will need further evaluation by your caregiver. You may need appropriate treatment and lifestyle changes as recommended. A certain number of patients with TIA go on to develop a stroke. It is very important that you follow up, as instructed, with your caregiver or a specialist in order to continue your evaluation and decide on a course of treatment. The failure to follow up in the time frame indicated by your caregiver may lead to worsening of your condition and permanent disability and possible .If you develop signs and symptoms of a stroke, TIME IS OF THE ESSENCE! Call 911. Medications to dissolve a blood clot can only be used within four and a half hours of the onset of symptoms.After that time, treatment of stroke depends on duration of symptoms, severity, and cause. It?s important to know and control your risk factors, but it is also important to recognize the signs and symptoms of stroke/TIA and know what to do: Call ?911? if any of these things happen: ? Sudden numbness or weakness of the face, arm, or leg especially on one side of the body. ? Sudden confusion, trouble speaking, or understanding. ? Sudden trouble seeing in one or both eyes. ? Sudden trouble walking, dizziness, loss of balance or coordination ? Sudden severe headache with no known cause * It is very important for you to follow-up with yo (more content not included)... [facility] 03-22-2024 Note Progress Note-Physic anabelle Assessment/Plan PLAN: 1. TIA (transient ischemic attack) (G45.9: Transient cerebral ischemic attack, unspecified) Right facial droop, ataxia and confusion MRI brain, MRA head -pending. Echo w/bubble study pending Telemetry Consult neurology appreciated. Lipid panel pending. 2. Type 2 diabetes mellitus with diabetic neuropathy (E11.40: Type 2 diabetes mellitus with diabetic neuropathy, unspecified) AccuChecks AC/HS Pt to use insulin pump. concern that pts symptoms may be secondary to hypoglycemmia. Pt did have BS 52 this AM and was asymptomatic. Monitor BS. HgA1C pending. 3. HTN (I10: Essential (primary) hypertension) Propranolol 4. Hyperlipidemia (E78.5: Hyperlipidemia, unspecified) Statin Lipid panel pending. 5. PAD (peripheral artery disease) (I73.9: Peripheral vascular disease, unspecified) Pt reports recent ileac stent placement at [facility] by ? symptoms since that time. ASA/Plavix. I did call and speak to who is requesting CTA of the neck. 6. CAD (I25.10: Atherosclerotic heart disease of [place] coronary artery without angina pectoris) ASA, Plavix 7. Emphysema/COPD (J43.9: Emphysema, unspecified) Med nebs, budesonide 8. Mood disorder (F39: Unspecified mood [affective] disorder) W/anxiety and depression Bupropion, Lamictal 9. Alcohol abuse (F10.10: Alcohol abuse, uncomplicated) Pt significant other reports that pt drinks 2 bottles of wine a night. Pt confirms. [facility] protocol Monitor for s/sx of withdrawl. 10. History of thyroidectomy (E89.0: Postprocedural hypothyroidism) levothyroxine 11. Smoker (F17.210: Nicotine dependence, cigarettes, uncomplicated) Weight Loss Physician on cessation Nicotine patch DVT Prophylaxis: Heparin sq Disposition: Pt will be observation status and will require <2 midnight stays for further work up and treatment of above. Subjective Pt seen at bedside this morning. She is anxious pending MRI/MRA today. Pt to have CTA done also per request. Pt recent Iliac stent placement. States she feels she has been having symptoms since stent placement. Pt denies CP, SOB, N/V. She has had no neurological symptoms since admission. Spouse is at bedside who is very anxious himself at times. Concern that pts blood sugar may have component in neurological issues as pt has insulin pump which she adjusts . Concern too much insulin at times. Objective Vitals & Measurements T: 36.7 ?C(Axillary) TMIN: 36.6 ?C(Axillary) TMAX: 36.9 ?C(Oral) HR: 78(Monitored) RR: 20 BP: 104/68 SpO2: 95% HT: 157.8 cm WT: 57.4 kg Intake & Output This visit (24 hour periods starting at 07:00 EDT) 03/22/24 * 03/21/24 03/20/24 Total Summary Intake mL 1 0.5 -- Output mL -- -- -- Fluid Balance 1 0.5 -- Intake (1) lorazepam mL 1 0.5 -- Total 1 0.5 -- Output (0) Counts (0) * This column has not completed the indicated time period. Physical Exam General: NAD mildly anxious Skin: Warm, dry, no pallor noted. Head: Normocephalic, atraumatic Neck: No JVD Eye: PERRLA, EOMI, visual field intact ENT: Moist mucus membranes Cardiovascular: Regular rate normal peripheral perfusion Respiratory: No respiratory distress no accessory muscle use no obvious audible wheezing Chest Wall: no deformity Musculoskeletal: normal ROM, no deformity, no swelling GI: Soft no obvious distention. No rebound or rigidity. No guarding. No tenderness. Neurological: A&O moves all extremities equal strength and symmetry, upper extremity tremor bilaterally which is baseline, no focal neurological deficits Psychiatric: Cooperative and appropriate Lab Results WBC: 9.6 E9/L (03/21/24 13:45:00) RBC: 4 E12/L Low (03/21/24 13:45:00) HGB: 13 gm/dL (03/21/24 13:45:00) Hct: 39.5 % (03/21/24 13:45:00) MCV: 99.8 fL (03/21/24 13:45:00) MCH: 32.8 pg (03/21/24 13:45:00) MCHC: 32.9 gm/dL (03/21/24 13:45:00) RDW: 13.7 % (03/21/24 13:45:00) Platelet: 304 E9/L (03/21/24 13:45:00) MPV: 7.9 fL (03/21/24 13:45:00) Neutro Auto: 63.7 % (03/21/24 13:45:00) Lymph Auto: 22.4 % (03/21/24 13:45:00) [place] Auto: 10.6 % (03/21/24 13:45:00) Eos Auto: 2.5 % (03/21/24 13:45:00) Basophil Auto: 0.8 % (03/21/24 13:45:00) Neutro Absolute: 6.1 E9/L (03/21/24 13:45:00) Lymph Absolute: 2.1 E9/L (03/21/24 13:45:00) [place] Absolute: 1 E9/L (03/21/24 13:45:00) Eos Absolute: 0.2 E9/L (03/21/24 13:45:00) Basophil Absolute: 0.1 E9/L (03/21/24 13:45:00) PT: 10.3 second(s) (03/21/24 13:45:00) INR: 0.92 (03/21/24 13:45:00) PTT: 27.5 second(s) (03/21/24 13:45:00) Glucose Lvl: 112 mg/dL (03/21/24 13:45:00) BUN: 7 mg/dL (03/21/24 13:45:00) Creatinine: 0.7 mg/dL (03/21/24 13:45:00) eGFR: 99 mL/min/1.73 m2 (03/21/24 13:45:00) BUN/Creat Ratio: 10 (03/21/24 13:45:00) Sodium Lvl: 140 mmol/L (03/21/24 13:45:00) Potassium Lvl: 4.3 mmol/L (03/21/24 13:45:00) Chloride: 105 mmol/L (03/21/24 13:45:00) CO2: 24 mmol/ (more content not included)... [facility] Comment on above: Result Comment: Elec tronically Signed By: Ghada CRUZ\.br\Date and Time Signed: 03/22/24 13:32 EDT\.br\Electronically Co-Signed By: Lee Martinez DO\.br\Date and Time Co-Signed: 03/22/24 14:36 EDT 03-22-2024 Evaluation + Plan note Extrac andrew from: Title:APSO Note Author:Monique CRUZ Date:03/22/24 PLAN: 1. TIA (transient ischemic attack) (G45.9: Transient cerebral ischemic attack, unspecified) Right facial droop, ataxia and confusion MRI brain, MRA head -pending. Echo w/bubble study pending Telemetry Consult neurology appreciated. Lipid panel pending. 2. Type 2 diabetes mellitus with diabetic neuropathy (E11.40: Type 2 diabetes mellitus with diabetic neuropathy, unspecified) AccuChecks AC/HS Pt to use insulin pump. concern that pts symptoms may be secondary to hypoglycemmia. Pt did have BS 52 this AM and was asymptomatic. Monitor BS. HgA1C pending. 3. HTN (I10: Essential (primary) hypertension) Propranolol 4. Hyperlipidemia (E78.5: Hyperlipidemia, unspecified) Statin Lipid panel pending. 5. PAD (peripheral artery disease) (I73.9: Peripheral vascular disease, unspecified) Pt reports recent ileac stent placement at [place] by ? symptoms since that time. ASA/Plavix. I did call and speak to who is requesting CTA of the neck. 6. CAD (I25.10: Atherosclerotic heart disease of [place] coronary artery without angina pectoris) ASA, Plavix 7. Emphysema/COPD (J43.9: Emphysema, unspecified) Med nebs, budesonide 8. Mood disorder (F39: Unspecified mood [affective] disorder) W/anxiety and depression Bupropion, Lamictal 9. Alcohol abuse (F10.10: Alcohol abuse, uncomplicated) Pt significant other reports that pt drinks 2 bottles of wine a night. Pt confirms. [facility] protocol Monitor for s/sx of withdrawl. 10. History of thyroidectomy (E89.0: Postprocedural hypothyroidism) levothyroxine 11. Smoker (F17.210: Nicotine dependence, cigarettes, uncomplicated) Weight Loss Physician on cessation Nicotine patch DVT Prophylaxis: Heparin sq Disposition: Pt will be observation status and will require <2 midnight stays for further work up and treatment of above. Extracted from: Title:Consult Note- Neurology Author:Jumana Min RN Date:03/22/24 ASSESSMENT: 59 year old woman with alcohol abuse who had an episode in which she felt paralyzed or severely generally weak. Could have represented symptomatic hypoglycemia. Low suspicion for acute cerebrovascular syndrome. She is undergoing stroke workup. I do not think this was a periodic paralysis syndrome. I do not think this had anything to do with spinal pathology. 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 PLAN: 1. MRI brain without contrast 2. She is already on aspirin and clopidogrel for peripheral vascular issues 3. I told her about my concerns for her alcohol consumption 4. If the MRI is unremarkable, no other recommendations at this time from a neurology standpoint 1. TIA (transient ischemic attack) (G45.9: Transient cerebral ischemic attack, unspecified) 2. Type 2 diabetes mellitus with diabetic neuropathy (E11.40: Type 2 diabetes mellitus with diabetic neuropathy, unspecified) 3. HTN (I10: Essential (primary) hypertension) 4. Hyperlipidemia (E78.5: Hyperlipidemia, unspecified) 5. PAD (peripheral artery disease) (I73.9: Peripheral vascular disease, unspecified) 6. CAD (I25.10: Atherosclerotic heart disease of [place] coronary artery without angina pectoris) 7. Emphysema/COPD (J43.9: Emphysema, unspecified) 8. Mood disorder (F39: Unspecified mood [affective] disorder) 9. Alcohol abuse (F10.10: Alcohol abuse, uncomplicated) 10. History of thyroidectomy (E89.0: Postprocedural hypothyroidism) 11. Smoker (F17.210: Nicotine dependence, cigarettes, uncomplicated) Extracted from: Title:Admission H & P Author:Sola CRUZ Date:03/21/24 PLAN: 1. TIA (transient ischemic attack) (G45.9: Transient cerebral ischemic attack, unspecified) Right facial droop, ataxia and confusion MRI brain, MRA head, neck pending. Echo w/bubble study pending Telemetry Consult neurology pending Allow permissive HTN Lipid panel pending. Ordered: Initial Hospital Care/Day High 75 Minutes 58637 2. Type 2 diabetes mellitus with diabetic neuropathy (E11.40: Type 2 diabetes mellitus with diabetic neuropathy, unspecified) AccuChecks AC/HS Pt to use insulin pump. Ordered: Initial Hospital Care/Day High 75 Minutes [id number] 3. HTN (I10: Essential (primary) hypertension) Allow permissive HTN tonight Propranolol Ordered: Initial Hospital Care/Day High 75 Minutes 35148 4. Hyperlipidemia (E78.5: Hyperlipidemia, unspecified) Statin Lipid panel pending. Ordered: Initial Hospital Care/Day High 75 Minutes 14629 5. PAD (peripheral artery disease) (I73.9: Peripheral vascular disease, unspecified) Pt reports recent stent placement by ? symptoms since that time. ASA/Plavix. 6. CAD (I25.10: Atherosclerotic heart disease of [place] coronary artery without angina pectoris) ASA, Plavix Ordered: Initial Hospital Care/Day High 75 Minutes 34924 7. Emphysema/COPD (J43.9: Emphysema, unspecified) Med nebs, budesonide 8. Mood disorder (F39: Unspecified mood [affective] disorder) W/anxiety and depression Bupropion, Lamictal 9. Alcohol abuse (F10.10: Alcohol abuse, uncomplicated) Pt significant other reports that pt drinks 2 bottles of wine a night. Pt confirms. [facility] protocol Monitor for s/sx of withdrawl. 10. History of thyroidectomy (E89.0: Postprocedural hypothyroidism) levothyroxine 11. Smoker (F17.210: Nicotine dependence, cigarettes, uncomplicated) Weight Loss Physician on cessation Nicotine patch DVT Prophylaxis: Heparin sq Disposition: Pt will be observation status and will require <2 midnight stays for further work up and treatment of above. Orders: acetaminophen, 650 mg = 2 tab(s), Tab, Oral, q6hr PRN Pain, Routine, Start date 03/21/24 18:55:00 EDT, 03/21/24 18:55:00 EDT Al hydroxide/Mg hydroxide/simethicone, 30 mL, Susp-Oral, Oral, q6hr PRN Indigestion, Routine, Start date 03/21/24 18:55:00 EDT albuterol, 2.5 mg, 3 mL, Soln-Inh, Inhalation, q2hr PRN Shortness of breath or wheezing, Routine, Start date 03/21/24 19:59:00 EDT albuterol-ipratropium, 3 mL, Soln-Inh, Inhalation, QID, Routine, Start date 03/21/24 20:00:00 EDT aspirin, 81 mg = 1 tab(s), Tab-EC, Oral, Daily, Routine, Start date 03/22/24 9:00:00 EDT buPROPion, 150 mg = 1 tab(s), Tab-ER, Oral, Daily for 30 day(s), Stop date 04/21/24 8:59:00 EDT, Start date 03/22/24 9:00:00 EDT chlordiazepoxide, 10 mg = 2 cap(s), Cap, Oral, q8hr, Routine, Start date 03/21/24 20:00:00 EDT, 03/21/24 19:51:00 EDT clopidogrel, 75 mg = 1 tab(s), Tab, Oral, Daily, Routine, Start date 03/22/24 9:00:00 EDT folic acid, 1 mg = 1 tab(s), Tab, Oral, Daily, Routine, Start date 03/22/24 9:00:00 EDT, 03/21/24 19:51:00 EDT glucose, 50 mL, Soln-IV, IV Push, Once PRN Blood glucose, Routine, Start date 03/21/24 19:16:00 EDT heparin, 5,000 unit(s) = 1 mL, Injection, SubCutaneous, BID for 30 day(s), Stop date 04/20/24 20:59:00 EDT, Routine, Start date 03/21/24 21:00:00 EDT, 03/21/24 18:55:00 EDT hydrALAZINE, 10 mg = 0.5 mL, Injection, IV Push, q6hr PRN Other (see comment), Routine, Start date 03/21/24 18:55:00 EDT, 03/21/24 18:55:00 EDT insulin lispro, 0-10 Unit(s), Injection-Insulin, SubCutaneous, QIDACHS, Routine, Start date 03/21/24 21:00:00 EDT lamotrigine, 100 mg = 1 tab(s), Tab, Oral, Daily, Routine, Start date 03/22/24 9:00:00 EDT lorazepam, 1 mg = 0.5 mL, Injection, IV Push, q6hr PRN Anxiety, Routine, Start date 03/21/24 19:51:00 EDT, 03/21/24 19:51:00 EDT lorazepam, 1 mg = 0.5 mL, Injection, IV Push, q1hr PRN Anxiety, Routine, Start date 03/21/24 19:51:00 EDT, 03/21/24 19:51:00 EDT multivitamin, 1 tab(s), Tab, Oral, Daily, Routine, Start date 03/22/24 9:00:00 EDT ondansetron, 4 mg = 2 mL, Injection, IV Push, q6hr PRN Nausea, Routine, Start date 03/21/24 18:55:00 EDT, 03/21/24 18:55:00 EDT propranolol, 20 mg = 2 tab(s), Tab, Oral, BID, Routine, Start date 03/21/24 21:00:00 EDT thiamine, 100 mg = 1 tab(s), Tab, Oral, Daily, Routine, Start date 03/22/24 9:00:00 EDT, 03/21/24 19:51:00 EDT Ambulate with Assistance Below the Knee Intermittent Pneumatic Compression Device Cardiac Monitoring Clinical [place] Withdrawal Assessment Clinical [place] Withdrawal Assessment Clinical [place] Withdrawal Assessment Clinical [place] Withdrawal Assessment Communication Order Physician to Nursing Communication Order Physician to Nursing Consult to Neurology Diabetic/Calorie Control Diet Ethanol Level Evaluate Need For Continued Telemetry Hypoglycemia Protocol Responsive Patient Hypoglycemia Protocol Unresponsive Patient Intake and Output MRA Head w/o Contrast MRA Neck w/o Contrast MRI Brain w/o Contrast Notify Provider Vital Signs Notify Provider Vital Signs Physical Therapy Evaluate Patient, Develop a Plan of Care and Implement Plan Precautions Pulse Oximetry Resuscitation Status - Full Routine Capillary Glucose POC TSH With T4fr Reflex Vital Signs Vital Signs Vital Signs Vital Signs Vital Signs Weight Extracted from: Title:ED Note Author:Raquel ORR, Taylor Green te:03/21/24 1. TIA (transient ischemic a ttack) (G45.9: Transient cerebral ischemic attack, unspecified) Ordered: ED Physician consult Hospitalist for continued care Diagnostic Tests Pending * Lipid Panel 03/23/24 * HgbA1c 03/23/24 Future Scheduled Tests Radiology* MA Mamm Screen w/CAD if perf and 3D Jace 05/25/23 [facility] 08-21-2024 NoteConsultation Note Chief Complaint weakness, stroke symptoms, since resolved Reason for Consultation TIA/CVA History of Present Illness 9-year-old woman. Drinks 2 bottles of wine daily. Had an episode yesterday in the early afternoon where she woke up in bed and felt like she could not move. She got very upset and anxious and was crying and managed to use a phone voice speech language pathologist assistant to call her . He inadvertently recorded the call somehow so he played it for me and her speech was slurred and she was tearful and yelling out. Hewas able to get EMS to go there and he let them in and they found her glucose to be 64. By the timeshe got to the hospital the glucose had improved to 83. She says she had a somewhat similar event afew days before where she got up and attempted to walk and her legs felt weak and then she had to essentially crawl across the floor. There is mention of right facial droop and other notes but I did not garbage pick up worker on any of that. Review of Systems GEN: No fevers or chills. CV/PULM: No chest pain. No shortness of breath. No palpitations. NEURO: No headaches. No loss of vision. No double vision. No dysphagia. No current speech changes. No focal weakness. No sensory loss. Physical Exam Vitals & Measurements T: 36.9 ?C(Axillary) TMIN: 36.8 ?C(Axillary) TMAX: 36.9 ?C(Oral) HR: 87(Monitored) RR: 16 BP: 127/78 SpO2: 98% HT: 157.8 cm WT: 57.4 kg GEN: General appearance normal. No distress. No visualized deformities or trauma. CARDIO/VASC: Limbs without significant edema and appear well-perfused. PULM: Normal work of breathing. SKIN: Visualized skin has petiechia and small scrapes and bruises MS: Affect is normal. She is alert. LANG: Speech is fluent and non-dysarthric. EYES: Pupils are equal. Gaze is conjugate. CN: Facial sensation normal. Hearing acuity normal. Face without droop and with normal motor function. MOTOR: Muscle bulk normal. Muscle tone normal. Muscle strength normal. She has mild postural tremorand moderate action tremors. REFLEXES: Reflexes hypoactive throughout. No pathologic reflexes. SENSORY: Light touch normal. Vibratory sensation intact in distal extremities. CEREBELLAR: She does not have any true limb ataxia but does have action tremors. Date/Time:03/22/2024 @1018 Level of Consciousness: Alert = 0 Current month and age: Answers both correctly = 0 Open and close eyes/911 operator release hand: Obeys both correctly = 0 Best gaze: Normal = 0 Visual field testing: No visual field loss = 0 Facial paresis: Normal symmetric movement = 0 Motor function left arm: Normal = 0 Motor function right arm: Normal = 0 Motor function left leg: Normal = 0 Motor function right leg: Normal = 0 Limb ataxia: No ataxia = 0 Sensory: Normal = 0 Best language: No aphasia = 0 Dysarthria: Normal articulation = 0 Extinction and inattention: Normal = 0 Total Score (severe deficit >22): 0 Notes: Assessment/Plan ASSESSMENT: 59 year old woman with alcohol abuse who had an episode in which she felt paralyzed or severely generally weak. Could have represented symptomatic hypoglycemia. Low suspicion for acute cerebrovascular syndrome. She is undergoing stroke workup. I do not think this was a periodic paralysis syndrome. I do not think this had anything to do with spinal pathology. 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 PLAN: 1. MRI brain without contrast 2. She is already on aspirin and clopidogrel for peripheral vascular issues 3. I told her about my concerns for her alcohol consumption 4. If the MRI is unremarkable, no other recommendations at this time from a neurology standpoint 1. TIA (transient ischemic attack) (G45.9: Transient cerebral ischemic attack, unspecified) 2. Type 2 diabetes mellitus with diabetic neuropathy (E11.40: Type 2 diabetes mellitus with diabetic neuropathy, unspecified) 3. HTN (I10: Essential (primary) hypertension) 4. Hyperlipidemia (E78.5: Hyperlipidemia, unspecified) 5. PAD (peripheral artery disease) (I73.9: Peripheral vascular disease, unspecified) 6. CAD (I25.10: Atherosclerotic heart disease of [place] coronary artery without angina pectoris) 7. Emphysema/COPD (J43.9: Emphysema, unspecified) 8. Mood disorder (F39: Unspecified mood [affective] disorder) 9. Alcohol abuse (F10.10: Alcohol abuse, uncomplicated) 10. History of thyroidectomy (E89.0: Postprocedural hypothyroidism) 11. Smoker (F17.210: Nicotine dependence, cigarettes, uncomplicated) Problem List/Past Medical History Ongoing Abnormal CBC Abnormal kidney function Anxiety B12 deficiency BMI 23.0-23.9, adult BMI 24.0-24.9, adult Breast cancer screening by mammogram CAD Chronic hoarseness Dehydration Emphysema/COPD History of colon polyps History of recent fall HTN Hyperlipidemia Insulin long-term use Loose stools Lumbar back pain with radiculopathy affecting lower extremity Mild major depression Osteoarthritis Other problems related to lifes (more content not included)...[facility]Result Comment: Electronically Signed By: Jumana Min RN\.br\Date and Time Signed: 03/22/24 07:40 EDT\.br\Electronically Co-Signed By: Joseph Woody DO\.br\Date and Time Co- Signed: 03/22/24 10:56 EDT\.br\Electronically Co-Signed By: Jumana Min RN [id number] NoteConsultation Note Chief Complaint weakness, stroke symptoms, since resolved Reason for Consultation TIA/CVA History of Present Illness 9-year-old woman. Drinks 2 bottles of wine daily. Had an episode yesterday in the early afternoon where she woke up in bed and felt like she could not move. She got very upset and anxious and was crying and managed to use a phone voice speech language pathologist assistant to call her . He inadvertently recorded the call somehow so he played it for me and her speech was slurred and she was tearful and yelling out. Hewas able to get EMS to go there and he let them in and they found her glucose to be 64. By the timeshe got to the hospital the glucose had improved to 83. She says she had a somewhat similar event afew days before where she got up and attempted to walk and her legs felt weak and then she had to essentially crawl across the floor. There is mention of right facial droop and other notes but I did not garbage pick up worker on any of that. Review of Systems GEN: No fevers or chills. CV/PULM: No chest pain. No shortness of breath. No palpitations. NEURO: No headaches. No loss of vision. No double vision. No dysphagia. No current speech changes. No focal weakness. No sensory loss. Physical Exam Vitals & Measurements T: 36.9 ?C(Axillary) TMIN: 36.8 ?C(Axillary) TMAX: 36.9 ?C(Oral) HR: 87(Monitored) RR: 16 BP: 127/78 SpO2: 98% HT: 157.8 cm WT: 57.4 kg GEN: General appearance normal. No distress. No visualized deformities or trauma. CARDIO/VASC: Limbs without significant edema and appear well-perfused. PULM: Normal work of breathing. SKIN: Visualized skin has petiechia and small scrapes and bruises MS: Affect is normal. She is alert. LANG: Speech is fluent and non-dysarthric. EYES: Pupils are equal. Gaze is conjugate. CN: Facial sensation normal. Hearing acuity normal. Face without droop and with normal motor function. MOTOR: Muscle bulk normal. Muscle tone normal. Muscle strength normal. She has mild postural tremorand moderate action tremors. REFLEXES: Reflexes hypoactive throughout. No pathologic reflexes. SENSORY: Light touch normal. Vibratory sensation intact in distal extremities. CEREBELLAR: She does not have any true limb ataxia but does have action tremors. Date/Time:03/22/2024 @1018 Level of Consciousness: Alert = 0 Current month and age: Answers both correctly = 0 Open and close eyes/911 operator release hand: Obeys both correctly = 0 Best gaze: Normal = 0 Visual field testing: No visual field loss = 0 Facial paresis: Normal symmetric movement = 0 Motor function left arm: Normal = 0 Motor function right arm: Normal = 0 Motor function left leg: Normal = 0 Motor function right leg: Normal = 0 Limb ataxia: No ataxia = 0 Sensory: Normal = 0 Best language: No aphasia = 0 Dysarthria: Normal articulation = 0 Extinction and inattention: Normal = 0 Total Score (severe deficit >22): 0 Notes: Assessment/Plan ASSESSMENT: 59 year old woman with alcohol abuse who had an episode in which she felt paralyzed or severely generally weak. Could have represented symptomatic hypoglycemia. Low suspicion for acute cerebrovascular syndrome. She is undergoing stroke workup. I do not think this was a periodic paralysis syndrome. I do not think this had anything to do with spinal pathology. 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 PLAN: 1. MRI brain without contrast 2. She is already on aspirin and clopidogrel for peripheral vascular issues 3. I told her about my concerns for her alcohol consumption 4. If the MRI is unremarkable, no other recommendations at this time from a neurology standpoint 1. TIA (transient ischemic attack) (G45.9: Transient cerebral ischemic attack, unspecified) 2. Type 2 diabetes mellitus with diabetic neuropathy (E11.40: Type 2 diabetes mellitus with diabetic neuropathy, unspecified) 3. HTN (I10: Essential (primary) hypertension) 4. Hyperlipidemia (E78.5: Hyperlipidemia, unspecified) 5. PAD (peripheral artery disease) (I73.9: Peripheral vascular disease, unspecified) 6. CAD (I25.10: Atherosclerotic heart disease of [place] coronary artery without angina pectoris) 7. Emphysema/COPD (J43.9: Emphysema, unspecified) 8. Mood disorder (F39: Unspecified mood [affective] disorder) 9. Alcohol abuse (F10.10: Alcohol abuse, uncomplicated) 10. History of thyroidectomy (E89.0: Postprocedural hypothyroidism) 11. Smoker (F17.210: Nicotine dependence, cigarettes, uncomplicated) Problem List/Past Medical History Ongoing Abnormal CBC Abnormal kidney function Anxiety B12 deficiency BMI 23.0-23.9, adult BMI 24.0-24.9, adult Breast cancer screening by mammogram CAD Chronic hoarseness Dehydration Emphysema/COPD History of colon polyps History of recent fall HTN Hyperlipidemia Insulin long-term use Loose stools Lumbar back pain with radiculopathy affecting lower extremity Mild major depression Osteoarthritis Other problems related to lifes (more content not included)...[facility]:Result Comment: Electronically Signed By: Jumana Min RN\.br\Date and Time Signed: 03/22/24 07:40 EDT\.br\Electronically Co-Signed By: Joseph Woody DO\.br\Date and Time Co- Signed: 03/22/24 10:56 [id number] NoteHistory and Physical Chief Complaint c/o weakness and unable to walk. pt states this happened 2 days ago, regained ability to walk yesterday, then this morning wasnt able to move limbs. presented to EMS with right facial droop and beingcombative and confused.. denies hx of stroke. History of Present Illness 59 year old female with past medical history significant for CAD, Mood disorder, anxiety,HTN, HLD, tremors, DM, thyroidectomy, chronic back pain, COPD, smoker. PAD w/stent placement, ETOH abuse.. Pt presented to the hospital following an episode of right facial droop, ataxia and confusion. Pt was brought to the ED by EMS. Pt received oral glucose due to blood sugar of 64. On arrival [facility] pt's blood sugar had improved to 83. Pt reports that she had an event two days ago when she was attempting to walk and her legs collapse. States she was on the floor and couldn't move. This last an hour. Today pt states she was lying in bed and had the same feeling overcome her. Statesshe was not able to move her arms, legs or move in bed. States she was unable to talk normal . Reports forcing herself to speak. States she had difficulty with her though process. The only way she could call for help was by using her RAMESH option on her phone. States she was unable to dial her phone and could hardly pick it up. States both events lasted about an hour. Denies fevers, chills, CP, SOB, N/V> Reports recent stent placement w/Dr.Lenin for PAD. States since that time she hasn't felt right . In the ED pt underwent a CT of the head which was negative for an acute process. Chest x-ray was also negative. Review of Systems Additional ROS info: Except as noted in the above Review of Systems and in the History of Present Illness all other systems have been reviewed and are negative or noncontributory. Scoring [place] Fall Risk Score: 70 High (03/21/24) Physical Exam Vitals & Measurements T: 36.9 ?C(Oral) HR: 96(Monitored) RR: 15 BP: 123/92 SpO2: 97% HT: 158 cm WT: 58.5 kg General: NAD mildly anxious Skin: Warm, dry, no pallor noted. Head: Normocephalic, atraumatic Neck: No JVD Eye: PERRLA, EOMI, visual field intact ENT: Moist mucus membranes Cardiovascular: Regular rate normal peripheral perfusion Respiratory: No respiratory distress no accessory muscle use no obvious audible wheezing Chest Wall: no deformity Musculoskeletal: normal ROM, no deformity, no swelling GI: Soft no obvious distention. No rebound or rigidity. No guarding. No tenderness. Neurological: A&O moves all extremities equal strength and symmetry, upper extremity tremor bilaterally which is baseline, no focal neurological deficits Psychiatric: Cooperative and appropriate Lab Results WBC: 9.6 E9/L (03/21/24 13:45:00) RBC: 4 E12/L Low (03/21/24 13:45:00) HGB: 13 gm/dL (03/21/24 13:45:00) Hct: 39.5 % (03/21/24 13:45:00) MCV: 99.8 fL (03/21/24 13:45:00) MCH: 32.8 pg (03/21/24 13:45:00) MCHC: 32.9 gm/dL (03/21/24 13:45:00) RDW: 13.7 % (03/21/24 13:45:00) Platelet: 304 E9/L (03/21/24 13:45:00) MPV: 7.9 fL (03/21/24 13:45:00) Neutro Auto: 63.7 % (03/21/24 13:45:00) Lymph Auto: 22.4 % (03/21/24 13:45:00) [place] Auto: 10.6 % (03/21/24 13:45:00) Eos Auto: 2.5 % (03/21/24 13:45:00) Basophil Auto: 0.8 % (03/21/24 13:45:00) Neutro Absolute: 6.1 E9/L (03/21/24 13:45:00) Lymph Absolute: 2.1 E9/L (03/21/24 13:45:00) [place] Absolute: 1 E9/L (03/21/24 13:45:00) Eos Absolute: 0.2 E9/L (03/21/24 13:45:00) Basophil Absolute: 0.1 E9/L (03/21/24 13:45:00) PT: 10.3 second(s) (03/21/24 13:45:00) INR: 0.92 (03/21/24 13:45:00) PTT: 27.5 second(s) (03/21/24 13:45:00) Glucose Lvl: 112 mg/dL (03/21/24 13:45:00) BUN: 7 mg/dL (03/21/24 13:45:00) Creatinine: 0.7 mg/dL (03/21/24 13:45:00) eGFR: 99 mL/min/1.73 m2 (03/21/24 13:45:00) BUN/Creat Ratio: 10 (03/21/24 13:45:00) Sodium Lvl: 140 mmol/L (03/21/24 13:45:00) Potassium Lvl: 4.3 mmol/L (03/21/24 13:45:00) Chloride: 105 mmol/L (03/21/24 13:45:00) CO2: 24 mmol/L (03/21/24 13:45:00) AGAP: 15 mEq/L (03/21/24 13:45:00) Calcium Lvl: 8.5 mg/dL Low (03/21/24 13:45:00) Alk Phos: 106 Int._Unit/L High (03/21/24 13:45:00) ALT: 17 Int._Unit/L (03/21/24 13:45:00) AST: 21 Int._Unit/L (03/21/24 13:45:00) Total Protein: 5.9 gm/dL Low (03/21/24 13:45:00) Albumin Lvl: 3.4 gm/dL (03/21/24 13:45:00) Globulin: 2.5 gm/dL (03/21/24 13:45:00) A/G Ratio: 1.4 (03/21/24 13:45:00) Bili Total: 0.5 mg/dL (03/21/24 13:45:00) Troponin HS: 3.5 pg/mL Low (03/21/24 13:45:00) Glucose Cap: 281 mg/dL High (03/21/24 16:13:00) POC Device SN: [id number] (03/21/24 16:13:00) POC User ID: [id number] (03/21/24 16:13:00) POC Username: [email or web address] Username (03/21/24 16:13:00) UA Spec Desc: Clean Catch (03/21/24 16:27:00) UA Color: Light-Yellow (03/21/24 16:27:00) UA Clarity: Clear (03/21/24 16:27:00) UA Spec Grav: 1.020 (03/21/24 16:27:00) UA pH: 5.5 (03/21/24 16:27:00) UA Protein: Negat (03/21/24 16:27:00) UA Glucose: 4+ Abnorm (more content not included)...[facility] Comment on above:Result Comment: Electronically Signed By: Ghada CRUZ\.br\Date and Time Signed: 03/21/24 20:04 EDT\.br\Electronically Co- Signed By: Ghada CRUZ\.br\Date and Time Co-Signed: 03/21/24 20:05 EDT\.br\Electronically Co-Signed By: Lee Martinez DO\.br\Date and Time Co-Signed: 03/22/24 09:33 [id number] Evaluation note* Encounter Date Diagnosis Assessment Notes Treatment Notes Treatment Clinical Notes Jul, Functional diarrhea (ICD-10 - K59.1) [employer] Other 06-15-2023 Evaluation note* Encounter Date Diagnosis Assessment Notes Treatment Notes Treatment Clinical Notes Dec, Lower abdominal pain (ICD-10 - R10.30) [employer] Other 06-01-2023 Hospital Discharge instructions Patient Education 12/31/2022 16:32:28 Preventive Care 65 Years and Older, Female Preventive Care 65 Years and Older, Female Preventive care refers to lifestyle choices and visits with your health care provider that can promote health and wellness. Preventive care visits are also called wellness exams. What can I expect for my preventive care visit? Counseling Your health care provider may ask you questions about your: Medical history, including: ?Past medical problems. ?Family medical history. ? and menstrual history. ?History of falls. Current health, including: ?Memory and ability to understand (cognition). ?Emotional well-being. ?Home life and relationship well-being. ?Sexual activity and sexual health. Lifestyle, including: ?Alcohol, nicotine or tobacco, and drug use. ?Access to firearms. ?Diet, exercise, and sleep habits. ?Work and work environment. ?Sunscreen use. ?Safety issues such as seatbelt and bike helmet use. Physical exam Your health care provider will check your: Height and weight. These may be used to calculate your BMI (body mass index). BMI is a measurement that tells if you are at a healthy weight. Waist circumference. This measures the distance around your waistline. This measurement also tells if you are at a healthy weight and may help predict your risk of certain diseases, such as type 2 diabetes and high blood pressure. Heart rate and blood pressure. Body temperature. Skin for abnormal spots. What immunizations do I need? Vaccines are usually given at various ages, according to a schedule. Your health care provider willrecommend vaccines for you based on your age, medical history, and lifestyle or other factors, suchas travel or where you work. What tests do I need? Screening Your health care provider may recommend screening tests for certain conditions. This may include: Lipid and cholesterol levels. Hepatitis C test. Hepatitis B test. HIV (human immunodeficiency virus) test. STI (sexually transmitted infection) testing, if you are at risk. Lung cancer screening. Colorectal cancer screening. Diabetes screening. This is done by checking your blood sugar (glucose) after you have not eaten for a while (fasting). Mammogram. Talk with your health care provider about how often you should have regular mammograms. BRCA-related cancer screening. This may be done if you have a family history of breast, ovarian, tubal, or peritoneal cancers. Bone density scan. This is done to screen for osteoporosis. Talk with your health care provider about your test results, treatment options, and if necessary, the need for more tests. Follow these instructions at home: Eating and drinking Eat a diet that includes fresh fruits and vegetables, whole grains, lean protein, and low-fat dairyproducts. Limit your intake of foods with high amounts of sugar, saturated fats, and salt. Take vitamin and mineral supplements as recommended by your health care provider. Do not drink alcohol if your health care provider tells you not to drink. If you drink alcohol: ?Limit how much you have to 0 1 drink a day. ?Know how much alcohol is in your drink. In the [place] one drink equals one 12 oz bottle of beer (355 mL), one 5 oz glass of wine (148 mL), or one 1 oz glass of hard liquor (44 mL). Lifestyle Reading your teeth every morning and night with fluoride toothpaste. Floss one time each day. Exercise for at least 30 minutes 5 or more days each week. Do not use any products that contain nicotine or tobacco. These products include cigarettes, chewing tobacco, and vaping devices, such as e-cigarettes. If you need help quitting, ask your health careprovider. Do not use drugs. If you are sexually active, practice safe sex. Use a condom or other form of protection in order toprevent STIs. Take aspirin only as told by your health care provider. Make sure that you understand how much to take and what form to take. Work with your health care provider to find out whether it is safe and beneficial for you to take aspirin daily. Ask your health care provider if you need to take a cholesterol-lowering medicine (statin). Find healthy ways to manage stress, such as: ?Meditation, yoga, or listening to music. ?Journaling. ?Talking to a trusted person. ?Spending time with friends and family. Minimize exposure to UV radiation to reduce your risk of skin cancer. Safety Always wear your seat belt while driving or riding in a vehicle. Do not drive: ?If you have been drinking alcohol. Do not ride with someone who has been drinking. ?When you are tired or distracted. ?While texting. ?If you have been using any mind-altering substances or drugs. Wear a helmet and other protective equipment during sports activities. If you have firearms in your house, make sure you follow all gun safety procedures. What's next? Visit your health care provider once a year for an annual wellness visit. Ask your health care provider how often you should have your eyes and teeth checked. Stay up to date on all vaccines. This information is not intended to replace advice given to you by your health care provider. Make sure you discuss any questions you have with your health care provider. Document Revised: 01/14/2022 Document Reviewed: 01/14/2022 [employer] Patient Education 2022 [employer]. 12/31/2022 16:32:26 Preventing Diabetes Mellitus Complications Preventing Diabetes Mellitus Complications You can help to prevent or slow down problems that are caused by diabetes (diabetes mellitus). Following your diabetes plan and taking care of yourself can reduce your risk of serious or life-threatening complications. What actions can I take to prevent diabetes complications? Diabetes management Follow instructions from your health care providers about managing your diabetes. Your diabetes maybe managed by a team of health care providers who can teach you how to care for yourself and can answer questions that you have. Educate yourself about your condition so you can make healthy choices about eating and physical activity. Know your target range for your blood sugar (glucose), and check your blood glucose level as often as told. Your health care provider will help you decide how often to check your blood glucose level depending on your treatment goals and how well you are meeting them. Ask your health care provider if you should take low-dose aspirin daily and what dose is recommended for you. Taking low-dose aspirin daily is recommended to help prevent cardiovascular disease. Controlling your blood pressure and cholesterol Your personal target blood pressure is determined based on: Your age. Your medicines. How long you have had diabetes. Any other medical conditions you have. To control your blood pressure: Follow instructions from your health care provider about meal planning, exercise, and medicines. Make sure your health care provider checks your blood pressure at every medical visit. Monitor your blood pressure at home as told by your health care provider. To control your cholesterol: Follow instructions from your health care provider about meal planning, exercise, and medicines. Have your cholesterol checked at least once a year. You may be prescribed medicine to lower cholesterol (statin). If you are not taking a statin, ask your health care provider if you should be. Controlling your cholesterol may: Help prevent heart disease and stroke. These are the most common health problems for people with diabetes. Improve your blood flow. Medical appointments and vaccines Schedule and keep yearly physical exams and eye exams. Your health care provider will tell you how often you need medical visits depending on your diabetes management plan. Keep all follow-up visits as told. This is important so possible problems can be identified early and complications can be avoided or treated. Every visit with your health care provider should include measuring your: ?Weight. ?Blood pressure. ?Blood glucose control. Your A1C (hemoglobin A1C) level should be checked: ?At least 2 times a year, if you are meeting your treatment goals. ?4 times a year, if you are not meeting treatment goals or if your treatment goals have changed. Your blood lipids (lipid profile) should be checked yearly. You should also be checked yearly for protein in your urine (urine microalbumin). If you have type 1 diabetes, get an eye exam 3 5 years after you are diagnosed, and then once a year after your first exam. If you have type 2 diabetes, get an eye exam as soon as you are diagnosed, and then once a year after your first exam. It is also important to keep your vaccines current. It is recommended that you receive: A flu (influenza) vaccine every year. A pneumonia (pneumococcal) vaccine and a hepatitis B vaccine. If you are age 65 or older, you may get the pneumonia vaccine as a series of two separate shots. Ask your health care provider which other vaccines may be recommended. Lifestyle Do not use any products that contain nicotine or tobacco, such as cigarettes, e- cigarettes, and chewing tobacco. If you need help quitting, ask your health care provider. By avoiding nicotine and tobacco: ?You will lower your risk for heart attack, stroke, nerve disease, and kidney disease. ?Your cholesterol and blood pressure may improve. ?Your blood circulation will improve. If you drink alcohol: ?Limit how much you use to: ?0 1 drink a day for women who are not . ?0 2 drinks a day for men. ?Be aware of how much alcohol is in your drink. In the [place] one drink equals one 12 oz bottle of beer (355 mL), one 5 oz glass of wine (148 mL), or one 11/2 oz glass of hard liquor (44 mL). Taking care of your feet Diabetes may cause you to have poor blood circulation to your legs and feet. Because of this, taking care of your feet is very important. Diabetes can cause: The skin on the feet to get thinner, break more easily, and heal more slowly. Nerve damage in your legs and feet, which results in decreased feeling. You may not notice minor injuries that could lead to serious problems. To avoid foot problems: Check your skin and feet every day for cuts, bruises, redness, blisters, or sores. Schedule a foot exam with your health care provider once every year. This exam includes: ?Inspecting the structure and skin of your feet. ?Checking the pulses and sensation in your feet. Make sure that your health care provider performs a visual foot exam at every medical visit. Taking care of your teeth People with poorly controlled diabetes are more likely to have gum (periodontal) disease. Diabetes can make periodontal diseases harder to control. If not treated, periodontal diseases can lead to tooth loss. To prevent this: Reading your teeth twice a day. Floss at least once a day. Visit your dentist 2 times a year. Managing stress Living with diabetes can be stressful. When you are experiencing stress, your blood glucose may be affected in two ways: Stress hormones may cause your blood glucose to rise. You may be distracted from taking good care of yourself. Be aware of your stress level and make changes to help you manage challenging situations. To lower your stress levels: Consider joining a support group. Do planned relaxation or meditation. Do a hobby that you enjoy. Maintain healthy relationships. Exercise regularly. Work with your health care provider or a mental health professional. Where to find more information [place] [employer]: www.diabetes.org Association of Diabetes [employer] and Education Specialists: www.diabeteseducator.org Summary You can take action to prevent or slow down problems that are caused by diabetes (diabetes mellitus). Following your diabetes plan and taking care of yourself can reduce your risk of serious or life-threatening complications. Follow instructions from your health care providers about managing your diabetes. Your diabetes maybe managed by a team of health care providers who can teach you how to care for yourself and can answer questions that you have. Know your target range for your blood sugar (glucose), and check your blood glucose levels as oftenas told. Your health care provider will help you decide how often you should check your blood glucose level depending on your treatment goals and how well you are meeting them. Your health care provider will tell you how often you need medical visits depending on your diabetes management plan. Keep all follow-up visits as directed. This is important so possible problems canbe identified early and complications can be avoided or treated. This information is not intended to replace advice given to you by your health care provider. Make sure you discuss any questions you have with your health care provider. Document Revised: 09/06/2020 Document Reviewed: 09/06/2020 [employer] Patient Education 2022 [employer] 12/31/2022 16:32:25 Managing Your Hypertension Managing Your Hypertension Hypertension, also called high blood pressure, is when the force of the blood pressing against the booker of the arteries is too strong. Arteries are blood vessels that carry blood from your heart throughout your body. Hypertension forces the heart to work harder to pump blood and may cause the arteries to become narrow or stiff. Understanding blood pressure readings A blood pressure reading includes a higher number over a lower number: The first, or top, number is called the systolic pressure. It is a measure of the pressure in your arteries as your heart beats. The second, or bottom number, is called the diastolic pressure. It is a measure of the pressure in your arteries as the heart relaxes. For most people, a normal blood pressure is below 120/80. Your personal target blood pressure may vary depending on your medical conditions, your age, and other factors. Blood pressure is classified into four stages. Based on your blood pressure reading, your health care provider may use the following stages to determine what type of treatment you need, if any. Systolic pressure and diastolic pressure are measured in a unit called millimeters of mercury (mmHg). Normal Systolic pressure: below 120. Diastolic pressure: below 80. Elevated Systolic pressure: 120 129. Diastolic pressure: below 80. Hypertension stage 1 Systolic pressure: 130 139. Diastolic pressure: 80 89. Hypertension stage 2 Systolic pressure: 140 or above. Diastolic pressure: 90 or above. How can this condition affect me? Managing your hypertension is very important. Over time, hypertension can damage the arteries and decrease blood flow to parts of the body, including the brain, heart, and kidneys. Having untreated or uncontrolled hypertension can lead to: A heart attack. A stroke. A weakened blood vessel (aneurysm). Heart failure. Kidney damage. Eye damage. Memory and concentration problems. Vascular dementia. What actions can I take to manage this condition? Hypertension can be managed by making lifestyle changes and possibly by taking medicines. Your health care provider will help you make a plan to bring your blood pressure within a normal range. You may be referred for counseling on a healthy diet and physical activity. Nutrition Eat a diet that is high in fiber and potassium, and low in salt (sodium), added sugar, and fat. An example eating plan is called the DASH diet. DASH stands for Dietary Approaches to Stop Hypertension. To eat this way: ?Eat plenty of fresh fruits and vegetables. Try to fill one-half of your plate at each meal with fruits and vegetables. ?Eat whole grains, such as whole-wheat pasta, brown rice, or whole-grain bread. Fill about one-fourth of your plate with whole grains. ?Eat low-fat dairy products. ?Avoid fatty cuts of meat, processed or cured meats, and poultry with skin. Fill about one-fourth of your plate with lean proteins such as fish, chicken without skin, beans, eggs, and tofu. ?Avoid pre-made and processed foods. These tend to be higher in sodium, added sugar, and fat. Reduce your daily sodium intake. Many people with hypertension should eat less than 1,500 mg of sodium a day. Lifestyle Work with your health care provider to maintain a healthy body weight or to lose weight. Ask what an ideal weight is for you. Get at least 30 minutes of exercise that causes your heart to beat faster (aerobic exercise) most days of the week. Activities may include walking, swimming, or biking. Include exercise to strengthen your muscles (resistance exercise), such as weight lifting, as part of your weekly exercise routine. Try to do these types of exercises for 30 minutes at least 3 days aweek. Do not use any products that contain nicotine or tobacco. These products include cigarettes, chewing tobacco, and vaping devices, such as e-cigarettes. If you need help quitting, ask your health careprovider. Control any long-term (chronic) conditions you have, such as high cholesterol or diabetes. Identify your sources of stress and find ways to manage stress. This may include meditation, deep breathing, or making time for fun activities. Alcohol use Do not drink alcohol if: ?Your health care provider tells you not to drink. ?You are , may be , or are planning to become . If you drink alcohol: ?Limit how much you have to: ?0 1 drink a day for women. ?0 2 drinks a day for men. ?Know how much alcohol is in your drink. In the [place] one drink equals one 12 oz bottle of beer (355 mL), one 5 oz glass of wine (148 mL), or one 1 oz glass of hard liquor (44 mL). Medicines Your health care provider may prescribe medicine if lifestyle changes are not enough to get your blood pressure under control and if: Your systolic blood pressure is 130 or higher. Your diastolic blood pressure is 80 or higher. Take medicines only as told by your health care provider. Follow the directions carefully. Blood pressure medicines must be taken as told by your health care provider. The medicine does not work as well when you skip doses. Skipping doses also puts you at risk for problems. Monitoring Before you monitor your blood pressure: Do not smoke, drink caffeinated beverages, or exercise within 30 minutes before taking a measurement. Use the bathroom and empty your bladder (urinate). Sit quietly for at least 5 minutes before taking measurements. Monitor your blood pressure at home as told by your health care provider. To do this: Sit with your back straight and supported. Place your feet flat on the floor. Do not cross your legs. Support your arm on a flat surface, such as a table. Make sure your upper arm is at heart level. Each time you measure, take two or three readings one minute apart and record the results. You may also need to have your blood pressure checked regularly by your health care provider. General information Talk with your health care provider about your diet, exercise habits, and other lifestyle factors that may be contributing to hypertension. Review all the medicines you take with your health care provider because there may be side effects or interactions. Keep all follow-up visits. Your health care provider can help you create and adjust your plan for managing your high blood pressure. Where to find more information National Heart, Lung, and Blood [place]: www.nhlbi.nih.gov [place] [employer]: www.heart.org Contact a health care provider if: You think you are having a reaction to medicines you have taken. You have repeated (recurrent) headaches. You feel dizzy. You have swelling in your ankles. You have trouble with your vision. Get help right away if: You develop a severe headache or confusion. You have unusual weakness or numbness, or you feel faint. You have severe pain in your chest or abdomen. You vomit repeatedly. You have trouble breathing. These symptoms may be an emergency. Get help right away. Call 911. Do not wait to see if the symptoms will go away. Do not drive yourself to the hospital. Summary Hypertension is when the force of blood pumping through your arteries is too strong. If this condition is not controlled, it may put you at risk for serious complications. Your personal target blood pressure may vary depending on your medical conditions, your age, and other factors. For most people, a normal blood pressure is less than 120/80. Hypertension is managed by lifestyle changes, medicines, or both. Lifestyle changes to help manage hypertension include losing weight, eating a healthy, low-sodium diet, exercising more, stopping smoking, and limiting alcohol. This information is not intended to replace advice given to you by your health care provider. Make sure you discuss any questions you have with your health care provider. Document Revised: 04/02/2022 Document Reviewed: 04/02/2022 [employer] Patient Education 2022 [employer] 12/31/2022 16:32:21 Major Depressive Disorder, Adult Major Depressive Disorder, Adult Major depressive disorder (MDD) is a mental health condition. It may also be called clinical depression or unipolar depression. MDD causes symptoms of sadness, hopelessness, and loss of interest in things. These symptoms last most of the day, almost every day, for 2 weeks. MDD can also cause physical symptoms. It can interfere with relationships and with everyday activities, such as work, school,and activities that are usually pleasant. MDD may be mild, moderate, or severe. It may be single-episode MDD, which happens once, or recurrent MDD, which may occur multiple times. What are the causes? The exact cause of this condition is not known. MDD is most likely caused by a combination of things, which may include: Your personality traits. [place] or conditioned behaviors or thoughts or feelings that reinforce negativity. Any alcohol or substance misuse. Long-term (chronic) physical or mental health illness. Going through a traumatic experience or major life changes. What increases the risk? The following factors may make someone more likely to develop MDD: A family history of depression. Being a woman. Troubled family relationships. Abnormally low levels of certain brain chemicals. Traumatic or painful events in childhood, especially abuse or loss of a parent. A lot of stress from life experiences, such as poor living conditions or discrimination. Chronic physical illness or other mental health disorders. What are the signs or symptoms? The main symptoms of MDD usually include: Constant depressed or irritable mood. A loss of interest in things and activities. Other symptoms include: Sleeping or eating too much or too little. Unexplained weight gain or weight loss. Tiredness or low energy. Being agitated, restless, or weak. Feeling hopeless, worthless, or guilty. Trouble thinking clearly or making decisions. Thoughts of suicide or thoughts of harming others. Isolating oneself or avoiding other people or activities. Trouble completing tasks, work, or any normal obligations. Severe symptoms of this condition may include: Psychotic depression.This may include false beliefs, or delusions. It may also include seeing, hearing, tasting, smelling, or feeling things that are not real (hallucinations). Chronic depression or persistent depressive disorder. This is low-level depression that lasts for at least 2 years. Melancholic depression, or feeling extremely sad and hopeless. Catatonic depression, which includes trouble speaking and trouble moving. How is this diagnosed? This condition may be diagnosed based on: Your symptoms. Your medical and mental health history. You may be asked questions about your lifestyle, including any drug and alcohol use. A physical exam. Blood tests to rule out other conditions. MDD is confirmed if you have the following symptoms most of the day, nearly every day, in a 2-week period: Either a depressed mood or loss of interest. At least four other MDD symptoms. How is this treated? This condition is usually treated by mental health professionals, such as psychologists, psychiatrists, and clinical social workers. You may need more than one type of treatment. Treatment may include: Psychotherapy, also called talk therapy or counseling. Types of psychotherapy include: ?Cognitive behavioral therapy (CBT). This teaches you to recognize unhealthy feelings, thoughts, and behaviors, and replace them with positive thoughts and actions. ?Interpersonal therapy (IPT). This helps you to improve the way you communicate with others or relate to them. ?Family therapy. This treatment includes members of your family. Medicines to treat anxiety and depression. These medicines help to balance the brain chemicals thataffect your emotions. Lifestyle changes. You may be asked to: ?Limit alcohol use and avoid drug use. ?Get regular exercise. ?Get plenty of sleep. ?Make healthy eating choices. ?Spend more time outdoors. Brain stimulation. This may be done if symptoms are very severe and other treatments have not worked. Examples of this treatment are electroconvulsive therapy and transcranial magnetic stimulation. Follow these instructions at home: Activity Exercise regularly and spend time outdoors. Find activities that you enjoy doing, and make time to do them. Find healthy ways to manage stress, such as: ?Meditation or deep breathing. ?Spending time in nature. ?Journaling. Return to your normal activities as told by your health care provider. Ask your health care provider what activities are safe for you. Alcohol and drug use If you drink alcohol: ?Limit how much you use to: ?0 1 drink a day for women who are not . ?0 2 drinks a day for men. ?Be aware of how much alcohol is in your drink. In the [place] one drink equals one 12 oz bottle of beer (355 mL), one 5 oz glass of wine (148 mL), or one 1 oz glass of hard liquor (44 mL). ?Discuss your alcohol use with your health care provider. Alcohol can affect any antidepressant medicines you are taking. Discuss any drug use with your health care provider. General instructions Take [id number] and prescription medicines only as told by your health care provider. Eat a healthy diet and get plenty of sleep. Consider joining a support group. Your health care provider may be able to recommend one. Keep all follow-up visits as told by your health care provider. This is important. Where to find more information National [place] on Mental Illness: www.diana.org [place] National [place] of Mental Health: www.nimh.nih.gov Contact a health care provider if: Your symptoms get worse. You develop new symptoms. Get help right away if: You self-harm. You have serious thoughts about hurting yourself or others. You hallucinate. If you ever feel like you may hurt yourself or others, or have thoughts about taking your own life,get help right away. Go to your nearest emergency department or: Call your local emergency services (551 in the [place] Call a suicide crisis helpline, such as the National Suicide Prevention Lifeline at or 354 in the [place] This is open 24 hours a day in the [place] Text the Crisis Text Line at 904321 (in the [place] Summary Major depressive disorder (MDD) is a mental health condition. MDD causes symptoms of sadness, hopelessness, and loss of interest in things. These symptoms last most of the day, almost every day, for 2 weeks. The symptoms of MDD can interfere with relationships and with everyday activities. Treatments and support are available for people who develop MDD. You may need more than one type oftreatment. Get help right away if you have serious thoughts about hurting yourself or others. This information is not intended to replace advice given to you by your health care provider. Make sure you discuss any questions you have with your health care provider. Document Revised: 02/11/2022 Document Reviewed: 06/29/2020 [employer] Patient Education 2022 [employer] 12/31/2022 16:32:20 Hypertension, Adult Hypertension, Adult High blood pressure (hypertension) is when the force of blood pumping through the arteries is too strong. The arteries are the blood vessels that carry blood from the heart throughout the body. Hypertension forces the heart to work harder to pump blood and may cause arteries to become narrow or stiff. Untreated or uncontrolled hypertension can lead to a heart attack, heart failure, a stroke, kidney disease, and other problems. A blood pressure reading consists of a higher number over a lower number. Ideally, your blood pressure should be below 120/80. The first ( top ) number is called the systolic pressure. It is a measure of the pressure in your arteries as your heart beats. The second ( bottom ) number is called the diastolic pressure. It is a measure of the pressure in your arteries as the heart relaxes. What are the causes? The exact cause of this condition is not known. There are some conditions that result in high bloodpressure. What increases the risk? Certain factors may make you more likely to develop high blood pressure. Some of these risk factorsare under your control, including: Smoking. Not getting enough exercise or physical activity. Being overweight. Having too much fat, sugar, calories, or salt (sodium) in your diet. Drinking too much alcohol. Other risk factors include: Having a personal history of heart disease, diabetes, high cholesterol, or kidney disease. Stress. Having a family history of high blood pressure and high cholesterol. Having obstructive sleep apnea. Age. The risk increases with age. What are the signs or symptoms? High blood pressure may not cause symptoms. Very high blood pressure (hypertensive crisis) may cause: Headache. Fast or irregular heartbeats (palpitations). Shortness of breath. Nosebleed. Nausea and vomiting. Vision changes. Severe chest pain, dizziness, and seizures. How is this diagnosed? This condition is diagnosed by measuring your blood pressure while you are seated, with your arm resting on a flat surface, your legs uncrossed, and your feet flat on the floor. The cuff of the bloodpressure monitor will be placed directly against the skin of your upper arm at the level of your heart. Blood pressure should be measured at least twice using the same arm. Certain conditions can cause a difference in blood pressure between your right and left arms. If you have a high blood pressure reading during one visit or you have normal blood pressure with other risk factors, you may be asked to: Return on a different day to have your blood pressure checked again. Monitor your blood pressure at home for 1 week or longer. If you are diagnosed with hypertension, you may have other blood or imaging tests to help your health care provider understand your overall risk for other conditions. How is this treated? This condition is treated by making healthy lifestyle changes, such as eating healthy foods, exercising more, and reducing your alcohol intake. You may be referred for counseling on a healthy diet and physical activity. Your health care provider may prescribe medicine if lifestyle changes are not enough to get your blood pressure under control and if: Your systolic blood pressure is above 130. Your diastolic blood pressure is above 80. Your personal target blood pressure may vary depending on your medical conditions, your age, and other factors. Follow these instructions at home: Eating and drinking Eat a diet that is high in fiber and potassium, and low in sodium, added sugar, and fat. An exampleof this eating plan is called the DASH diet. DASH stands for Dietary Approaches to Stop Hypertension. To eat this way: ?Eat plenty of fresh fruits and vegetables. Try to fill one half of your plate at each meal with fruits and vegetables. ?Eat whole grains, such as whole-wheat pasta, brown rice, or whole-grain bread. Fill about one fourth of your plate with whole grains. ?Eat or drink low-fat dairy products, such as skim milk or low-fat yogurt. ?Avoid fatty cuts of meat, processed or cured meats, and poultry with skin. Fill about one fourth of your plate with lean proteins, such as fish, chicken without skin, beans, eggs, or tofu. ?Avoid pre-made and processed foods. These tend to be higher in sodium, added sugar, and fat. Reduce your daily sodium intake. Many people with hypertension should eat less than 1,500 mg of sodium a day. Do not drink alcohol if: ?Your health care provider tells you not to drink. ?You are , may be , or are planning to become . If you drink alcohol: ?Limit how much you have to: ?0 1 drink a day for women. ?0 2 drinks a day for men. ?Know how much alcohol is in your drink. In the [place] one drink equals one 12 oz bottle of beer (355 mL), one 5 oz glass of wine (148 mL), or one 1 oz glass of hard liquor (44 mL). Lifestyle Work with your health care provider to maintain a healthy body weight or to lose weight. Ask what an ideal weight is for you. Get at least 30 minutes of exercise that causes your heart to beat faster (aerobic exercise) most days of the week. Activities may include walking, swimming, or biking. Include exercise to strengthen your muscles (resistance exercise), such as Pilates or lifting weights, as part of your weekly exercise routine. Try to do these types of exercises for 30 minutes at least 3 days a week. Do not use any products that contain nicotine or tobacco. These products include cigarettes, chewing tobacco, and vaping devices, such as e-cigarettes. If you need help quitting, ask your health careprovider. Monitor your blood pressure at home as told by your health care provider. Keep all follow-up visits. This is important. Medicines Take [id number] and prescription medicines only as told by your health care provider. Follow directions carefully. Blood pressure medicines must be taken as prescribed. Do not skip doses of blood pressure medicine. Doing this puts you at risk for problems and can makethe medicine less effective. Ask your health care provider about side effects or reactions to medicines that you should watch for. Contact a health care provider if you: Think you are having a reaction to a medicine you are taking. Have headaches that keep coming back (recurring). Feel dizzy. Have swelling in your ankles. Have trouble with your vision. Get help right away if you: Develop a severe headache or confusion. Have unusual weakness or numbness. Feel faint. Have severe pain in your chest or abdomen. Vomit repeatedly. Have trouble breathing. These symptoms may be an emergency. Get help right away. Call 911. Do not wait to see if the symptoms will go away. Do not drive yourself to the hospital. Summary Hypertension is when the force of blood pumping through your arteries is too strong. If this condition is not controlled, it may put you at risk for serious complications. Your personal target blood pressure may vary depending on your medical conditions, your age, and other factors. For most people, a normal blood pressure is less than 120/80. Hypertension is treated with lifestyle changes, medicines, or a combination of both. Lifestyle changes include losing weight, eating a healthy, low-sodium diet, exercising more, and limiting alcohol. This information is not intended to replace advice given to you by your health care provider. Make sure you discuss any questions you have with your health care provider. Document Revised: 05/26/2022 Document Reviewed: 05/26/2022 [employer] Patient Education 2022 [employer] 12/31/2022 16:32:19 Heart Disease Prevention Heart Disease Prevention Heart disease is the leading cause of in the world. Coronary artery disease is the most common cause of heart disease. This condition results when cholesterol and other substances (plaque) build up inside the booker of the blood vessels that supply your heart muscle (arteries). This buildup inarteries is called atherosclerosis. You can take actions to lower your risk of heart disease. How can heart disease affect me? Heart disease can cause many unpleasant symptoms and complications, such as: Chest pain (angina). Reduced or blocked blood flow to your heart. This can cause: ?Irregular heartbeats (arrhythmias). ?Heart attack. ?Heart failure. What can increase my risk? The following factors may make you more likely to develop this condition: High blood pressure (hypertension). High cholesterol. A diet high in saturated fats or trans fats. Obesity. Diabetes. Having a family history of heart disease. Certain lifestyle factors, including: ?Smoking. ?Lack of physical activity. ?Drinking too much alcohol. What actions can I take to prevent heart disease? Nutrition Follow a heart-healthy eating plan as told by your health care provider. Examples include the DASH eating plan. DASH stands for Dietary Approaches to Stop Hypertension. Generally, it is recommended that you: ?Eat less salt (sodium). Ask your health care provider how much sodium is safe for you. Most peopleshould have less than 2,300 mg each day. ?Limit unhealthy fats, such as saturated and trans fats, in your diet. You can do this by eating low-fat dairy products, eating less red meat, and avoiding processed foods. ?Eat healthy fats (omega-3 fatty acids). These are found in fish, such as mackerel or salmon. ?Eat more fruits and vegetables. You should try to fill one-half of your plate with fruits and vegetables at each meal. ?Eat more whole grains. ?Avoid foods and drinks that have added sugars. Try to limit how much added sugar you have to: ?Less than 25 grams a day for women. ?Less than 36 grams a day for men. Lifestyle Get regular exercise. This is one of the most important things you can do for your health. Generally, it is recommended that you: ?Exercise for at least 30 minutes on most days of the week (150 minutes each week). This should be exercise that causes your heart to beat faster (aerobic exercise). ?Add strength exercises on at least 2 days each week. Do not use any products that contain nicotine or tobacco. These products include cigarettes, chewing tobacco, and vaping devices, such as e-cigarettes. These can damage your heart and blood vessels. If you need help quitting, ask your health care provider. Alcohol use Do not drink alcohol if: ?Your health care provider tells you not to drink. ?You are , may be , or are planning to become . If you drink alcohol: ?Limit how much you have to: ?0 1 drink a day for women. ?0 2 drinks a day for men. ?Know how much alcohol is in your drink. In the [place] one drink equals one 12 oz bottle of beer (355 mL), one 5 oz glass of wine (148 mL), or one 1 oz glass of hard liquor (44 mL). Medicines Take vunp-oxy-hfzicop and prescription medicines only as told by your health care provider. Work with your health care provider to find out whether it is safe and beneficial for you to take aspirin daily. Make sure that you understand how much to take and what form to take. Depending on your risk factors, your health care provider may prescribe medicines to lower your risk of heart disease or to control related conditions. You may take medicine to: ?Lower cholesterol. ?Control blood pressure. ?Control diabetes. General information Keep your blood pressure under control, as recommended by your health care provider. For most healthy people, the upper number of their blood pressure (systolic) should be no higher than 120, and thelower number (diastolic) no higher than 80. Treatment may be needed if your blood pressure is higher than 130/80. Have your blood pressure checked at least every 2 years. Your health care provider may check your blood pressure more often if you have high blood pressure. After age 20, have your cholesterol checked every 4 6 years. If you have risk factors for heart disease, you may need to have it checked more often. Treatment may be needed if your cholesterol is high. Have your body mass index (BMI) checked every year. Your health care provider can calculate your BMI from your height and weight. Check your waist circumference. It should be: ?No more than 35 inches (89 cm) for women who are not . ?No more than 40 inches (102 cm) for men. Work with your health care provider to lose weight, if needed, or to maintain a healthy weight. Where to find more information: Centers for Disease Control and Prevention: www.cdc.gov/heartdisease [place] [employer]: www.heart.org Summary Heart disease is the leading cause of in the world. Heart disease can cause chest pain, abnormal heart rhythms, heart attack, and heart failure. Some of the risk factors for heart disease include high blood pressure, high cholesterol, and smoking. You can take actions to lower your chances of developing heart disease. Work with your health care provider to reduce your risk by following a heart-healthy diet, being physically active, and controlling your weight, blood pressure, and cholesterol level. This information is not intended to replace advice given to you by your health care provider. Make sure you discuss any questions you have with your health care provider. Document Revised: 03/18/2022 Document Reviewed: 03/18/2022 [facility] [employer] Patient Education 2022 [email or web address]. 12/31/2022 16:32:17 Diabetes Mellitus and Nutrition, Adult Diabetes Mellitus and Nutrition, Adult When you have diabetes, or diabetes mellitus, it is very important to have healthy eating habits because your blood sugar (glucose) levels are greatly affected by what you eat and drink. Eating healthy foods in the right amounts, at about the same times every day, can help you: Manage your blood glucose. Lower your risk of heart disease. Improve your blood pressure. Reach or maintain a healthy weight. What can affect my meal plan? Every person with diabetes is different, and each person has different needs for a meal plan. Your health care provider may recommend that you work with a dietitian to make a meal plan that is best for you. Your meal plan may vary depending on factors such as: The calories you need. The medicines you take. Your weight. Your blood glucose, blood pressure, and cholesterol levels. Your activity level. Other health conditions you have, such as heart or kidney disease. How do carbohydrates affect me? Carbohydrates, also called carbs, affect your blood glucose level more than any other type of food.Eating carbs raises the amount of glucose in your blood. It is important to know how many carbs you can safely have in each meal. This is different for every person. Your dietitian can help you calculate how many carbs you should have at each meal and for each snack. How does alcohol affect me? Alcohol can cause a decrease in blood glucose (hypoglycemia), especially if you use insulin or takecertain diabetes medicines by mouth. Hypoglycemia can be a life-threatening condition. Symptoms of hypoglycemia, such as sleepiness, dizziness, and confusion, are similar to symptoms of having too much alcohol. Do not drink alcohol if: ?Your health care provider tells you not to drink. ?You are , may be , or are planning to become . If you drink alcohol: ?Limit how much you have to: ?0 1 drink a day for women. ?0 2 drinks a day for men. ?Know how much alcohol is in your drink. In the [place] one drink equals one 12 oz bottle of beer (355 mL), one 5 oz glass of wine (148 mL), or one 1 oz glass of hard liquor (44 mL). ?Keep yourself hydrated with water, diet soda, or unsweetened iced tea. Keep in mind that regular soda, juice, and other mixers may contain a lot of sugar and must be counted as carbs. What are tips for following this plan? Reading food labels Start by checking the serving size on the Nutrition Facts label of packaged foods and drinks. The number of calories and the amount of carbs, fats, and other nutrients listed on the label are based on one serving of the item. Many items contain more than one serving per package. Check the total grams (g) of carbs in one serving. Check the number of grams of saturated fats and trans fats in one serving. Choose foods that have alow amount or none of these fats. Check the number of milligrams (mg) of salt (sodium) in one serving. Most people should limit totalsodium intake to less than 2,300 mg per day. Always check the nutrition information of foods labeled as low-fat or nonfat. These foods may be higher in added sugar or refined carbs and should be avoided. Talk to your dietitian to identify your daily goals for nutrients listed on the label. Shopping Avoid buying canned, pre-made, or processed foods. These foods tend to be high in fat, sodium, and added sugar. Shop around the outside edge of the grocery store. This is where you will most often find fresh fruits and vegetables, bulk grains, fresh meats, and fresh dairy products. Cooking Use low-heat cooking methods, such as baking, instead of high-heat cooking methods, such as deep frying. Cook using healthy oils, such as olive, canola, or sunflower oil. Avoid cooking with butter, cream, or high-fat meats. Meal planning Eat meals and snacks regularly, preferably at the same times every day. Avoid going long periods oftime without eating. Eat foods that are high in fiber, such as fresh fruits, vegetables, beans, and whole grains. Eat 4 6 oz (112 168 g) of lean protein each day, such as lean meat, chicken, fish, eggs, or tofu. One ounce (oz) (28 g) of lean protein is equal to: ?1 oz (28 g) of meat, chicken, or fish. ?1 egg. ? cup (62 g) of tofu. Eat some foods each day that contain healthy fats, such as avocado, nuts, seeds, and fish. What foods should I eat? Fruits Berries. Apples. Oranges. Peaches. Apricots. Plums. Grapes. Mangoes. Papayas. Pomegranates. Kiwi. Cherries. Vegetables Leafy greens, including lettuce, spinach, kale, chard, mis greens, mustard greens, and cabbage.Beets. Cauliflower. Broccoli. Carrots. Green beans. Tomatoes. Peppers. Onions. Cucumbers. [place] sprouts. Grains Whole grains, such as whole-wheat or whole-grain bread, crackers, tortillas, cereal, and pasta. Unsweetened oatmeal. Quinoa. Brown or wild rice. Meats and other proteins Seafood. Poultry without skin. Lean cuts of poultry and beef. Tofu. Nuts. Seeds. Dairy Low-fat or fat-free dairy products such as milk, yogurt, and cheese. The items listed above may not be a complete list of foods and beverages you can eat and drink. Contact a dietitian for more information. What foods should I avoid? Fruits Fruits canned with syrup. Vegetables Canned vegetables. Frozen vegetables with butter or cream sauce. Grains Refined white flour and flour products such as bread, pasta, snack foods, and cereals. Avoid all processed foods. Meats and other proteins Fatty cuts of meat. Poultry with skin. Breaded or fried meats. Processed meat. Avoid saturated fats. Dairy Full-fat yogurt, cheese, or milk. Beverages Sweetened drinks, such as soda or iced tea. The items listed above may not be a complete list of foods and beverages you should avoid. Contact a dietitian for more information. Questions to ask a health care provider Do I need to meet with a certified diabetes care and paraprofessional education assistant? Do I need to meet with a dietitian? What number can I call if I have questions? When are the best times to check my blood glucose? Where to find more information: [place] [employer]: diabetes.org Academy of Nutrition and Dietetics: eatright.org National [place] of Diabetes and Digestive and Kidney Diseases: niddk.nih.gov Association of Diabetes Care & Education Specialists: diabeteseducator.org Summary It is important to have healthy eating habits because your blood sugar (glucose) levels are greatlyaffected by what you eat and drink. It is important to use alcohol carefully. A healthy meal plan will help you manage your blood glucose and lower your risk of heart disease. Your health care provider may recommend that you work with a dietitian to make a meal plan that is best for you. This information is not intended to replace advice given to you by your health care provider. Make sure you discuss any questions you have with your health care provider. Document Revised: 02/19/2021 Document Reviewed: 02/19/2021 [facility] [employer] Patient Education 2022 [employer]. 12/31/2022 16:32:16 Diabetes Mellitus and Foot Care Diabetes Mellitus and Foot Care Foot care is an important part of your health, especially when you have diabetes. Diabetes may cause you to have problems because of poor blood flow (circulation) to your feet and legs, which can cause your skin to: Become thinner and fiber drier operator. Break more easily. Heal more slowly. Peel and crack. You may also have nerve damage (neuropathy) in your legs and feet, causing decreased feeling in them. This means that you may not notice minor injuries to your feet that could lead to more serious problems. Noticing and addressing any potential problems early is the best way to prevent future foot problems. How to care for your feet Foot hygiene Wash your feet daily with warm water and mild soap. Do not use hot water. Then, pat your feet and the areas between your toes until they are completely dry. Do not soak your feet as this can dry yourskin. Trim your toenails straight across. Do not dig under them or around the cuticle. File the edges of your nails with an emery board or nail file. Apply a moisturizing lotion or petroleum jelly to the skin on your feet and to dry, brittle toenails. Use lotion that does not contain alcohol and is unscented. Do not apply lotion between your toes. Shoes and socks Wear clean socks or stockings every day. Make sure they are not too tight. Do not wear knee-high stockings since they may decrease blood flow to your legs. Wear shoes that fit properly and have enough cushioning. Always look in your shoes before you put them on to be sure there are no objects inside. To break in new shoes, wear them for just a few hours a day. This prevents injuries on your feet. Wounds, scrapes, corns, and calluses Check your feet daily for blisters, cuts, bruises, sores, and redness. If you cannot see the bottomof your feet, use a mirror or ask someone for help. Do not cut corns or calluses or try to remove them with medicine. If you find a minor scrape, cut, or break in the skin on your feet, keep it and the skin around it clean and dry. You may clean these areas with mild soap and water. Do not clean the area with peroxide, alcohol, or iodine. If you have a wound, scrape, corn, or callus on your foot, look at it several times a day to make sure it is healing and not infected. Check for: ?Redness, swelling, or pain. ?Fluid or blood. ?Warmth. ?Pus or a bad smell. General tips Do not cross your legs. This may decrease blood flow to your feet. Do not use heating pads or hot water bottles on your feet. They may burn your skin. If you have lost feeling in your feet or legs, you may not know this is happening until it is too late. Protect your feet from hot and cold by wearing shoes, such as at the beach or on hot pavement. Schedule a complete foot exam at least once a year (annually) or more often if you have foot problems. Report any cuts, sores, or bruises to your health care provider immediately. Where to find more information [place] Diabetes Association: www.diabetes.org Association of Diabetes Care & Education Specialists: www.diabeteseducator.org Contact a health care provider if: You have a medical condition that increases your risk of infection and you have any cuts, sores, orbruises on your feet. You have an injury that is not healing. You have redness on your legs or feet. You feel burning or tingling in your legs or feet. You have pain or cramps in your legs and feet. Your legs or feet are numb. Your feet always feel cold. You have pain around any toenails. Get help right away if: You have a wound, scrape, corn, or callus on your foot and: ?You have pain, swelling, or redness that gets worse. ?You have fluid or blood coming from the wound, scrape, corn, or callus. ?Your wound, scrape, corn, or callus feels warm to the touch. ?You have pus or a bad smell coming from the wound, scrape, corn, or callus. ?You have a fever. ?You have a red line going up your leg. Summary Check your feet every day for blisters, cuts, bruises, sores, and redness. Apply a moisturizing lotion or petroleum jelly to the skin on your feet and to dry, brittle toenails. Wear shoes that fit properly and have enough cushioning. If you have foot problems, report any cuts, sores, or bruises to your health care provider immediately. Schedule a complete foot exam at least once a year (annually) or more often if you have foot problems. This information is not intended to replace advice given to you by your health care provider. Make sure you discuss any questions you have with your health care provider. Document Revised: 02/06/2021 Document Reviewed: 02/06/2021 [facility] [employer] Patient Education 2022 [employer]. 12/31/2022 16:32:15 Diabetes Mellitus and Exercise Diabetes Mellitus and Exercise Exercising regularly is important for overall health, especially for people who have diabetes mellitus. Exercising is not only about losing weight. It has many other health benefits, such as increasing muscle strength and bone density and reducing body fat and stress. This leads to improved fitness, flexibility, and endurance, all of which result in better overall health. What are the benefits of exercise if I have diabetes? Exercise has many benefits for people with diabetes. They include: Helping to lower and control blood sugar (glucose). Helping the body to respond better to the hormone insulin by improving insulin sensitivity. Reducing how much insulin the body needs. Lowering the risk for heart disease by: ?Lowering bad cholesterol and triglyceride levels. ?Increasing good cholesterol levels. ?Lowering blood pressure. ?Lowering blood glucose levels. What is my activity plan? Your health care provider or faa certified powerplant mechanic can help you make a plan for the type and frequency of exercise that works for you. This is called your activity plan. Be sure to: Get at least 150 minutes of medium-intensity or high-intensity exercise each week. Exercises may include brisk walking, biking, or water aerobics. Do stretching and strengthening exercises, such as yoga or weight lifting, at least 2 times a week. Spread out your activity over at least 3 days of the week. Get some form of physical activity each day. ?Do not go more than 2 days in a row without some kind of physical activity. ?Avoid being inactive for more than 90 minutes at a time. Take frequent breaks to walk or stretch. Choose exercises or activities that you enjoy. Set realistic goals. Start slowly and gradually increase your exercise intensity over time. How do I manage my diabetes during exercise? Monitor your blood glucose Check your blood glucose before and after exercising. If your blood glucose is: ?240 mg/dL (13.3 mmol/L) or higher before you exercise, check your urine for ketones. These are chemicals created by the liver. If you have ketones in your urine, do not exercise until your blood glucose returns to normal. ?100 mg/dL (5.6 mmol/L) or lower, eat a snack containing 15 20 grams of carbohydrate. Check your blood glucose 15 minutes after the snack to make sure that your glucose level is above 100 mg/dL (5.6 mmol/L) before you start your exercise. Know the symptoms of low blood glucose (hypoglycemia) and how to treat it. Your risk for hypoglycemia increases during and after exercise. Follow these tips and your health care provider's instructions Keep a carbohydrate snack that is fast-acting for use before, during, and after exercise to help prevent or treat hypoglycemia. Avoid injecting insulin into areas of the body that are going to be exercised. For example, avoid injecting insulin into: ?Your arms, when you are about to play tennis. ?Your legs, when you are about to go jogging. Keep records of your exercise habits. Doing this can help you and your health care provider adjust your diabetes management plan as needed. Write down: ?Food that you eat before and after you exercise. ?Blood glucose levels before and after you exercise. ?The type and amount of exercise you have done. Work with your health care provider when you start a new exercise or activity. He or she may need to: ?Make sure that the activity is safe for you. ?Adjust your insulin, other medicines, and food that you eat. Drink plenty of water while you exercise. This prevents loss of water (dehydration) and problems caused by a lot of heat in the body (heat stroke). Where to find more information [place] Diabetes Association: www.diabetes.org Summary Exercising regularly is important for overall health, especially for people who have diabetes mellitus. Exercising has many health benefits. It increases muscle strength and bone density and reduces bodyfat and stress. It also lowers and controls blood glucose. Your health care provider or faa certified powerplant mechanic can help you make an activity plan for thetype and frequency of exercise that works for you. Work with your health care provider to make sure any new activity is safe for you. Also work with your health care provider to adjust your insulin, other medicines, and the food you eat. This information is not intended to replace advice given to you by your health care provider. Make sure you discuss any questions you have with your health care provider. Document Revised: 04/15/2020 Document Reviewed: 04/15/2020 [facility] [employer] Patient Education 2022 [employer]. 12/31/2022 16:32:13 DASH Eating Plan DASH Eating Plan DASH stands for Dietary Approaches to Stop Hypertension. The DASH eating plan is a healthy eating plan that has been shown to: Reduce high blood pressure (hypertension). Reduce your risk for type 2 diabetes, heart disease, and stroke. Help with weight loss. What are tips for following this plan? Reading food labels Check food labels for the amount of salt (sodium) per serving. Choose foods with less than 5 percent of the Daily Value of sodium. Generally, foods with less than 300 milligrams (mg) of sodium per serving fit into this eating plan. To find whole grains, look for the word whole as the first word in the ingredient list. Shopping Buy products labeled as low-sodium or no salt added. Buy fresh foods. Avoid canned foods and pre-made or frozen meals. Cooking Avoid adding salt when cooking. Use salt-free seasonings or herbs instead of table salt or sea salt. Check with your health care provider or pharmacist before using salt substitutes. Do not barron foods. Cook foods using healthy methods such as baking, boiling, grilling, roasting, andbroiling instead. Cook with heart-healthy oils, such as olive, canola, avocado, soybean, or sunflower oil. Meal planning Eat a balanced diet that includes: ?4 or more servings of fruits and 4 or more servings of vegetables each day. Try to fill one-half of your plate with fruits and vegetables. ?6 8 servings of whole grains each day. ?Less than 6 oz (170 g) of lean meat, poultry, or fish each day. A 3-oz (85-g) serving of meat is about the same size as a deck of cards. One egg equals 1 oz (28 g). ?2 3 servings of low-fat dairy each day. One serving is 1 cup (237 mL). ?1 serving of nuts, seeds, or beans 5 times each week. ?2 3 servings of heart-healthy fats. Healthy fats called omega-3 fatty acids are found in foods such as walnuts, flaxseeds, fortified milks, and eggs. These fats are also found in cold-water fish, such as sardines, salmon, and mackerel. Limit how much you eat of: ?Canned or prepackaged foods. ?Food that is high in trans fat, such as some fried foods. ?Food that is high in saturated fat, such as fatty meat. ?Desserts and other sweets, sugary drinks, and other foods with added sugar. ?Full-fat dairy products. Do not salt foods before eating. Do not eat more than 4 egg yolks a week. Try to eat at least 2 vegetarian meals a week. Eat more home-cooked food and less restaurant, buffet, and fast food. Lifestyle When eating at a restaurant, ask that your food be prepared with less salt or no salt, if possible. If you drink alcohol: ?Limit how much you use to: ?0 1 drink a day for women who are not . ?0 2 drinks a day for men. ?Be aware of how much alcohol is in your drink. In the [place] one drink equals one 12 oz bottle of beer (355 mL), one 5 oz glass of wine (148 mL), or one 1 oz glass of hard liquor (44 mL). General information Avoid eating more than 2,300 mg of salt a day. If you have hypertension, you may need to reduce your sodium intake to 1,500 mg a day. Work with your health care provider to maintain a healthy body weight or to lose weight. Ask what an ideal weight is for you. Get at least 30 minutes of exercise that causes your heart to beat faster (aerobic exercise) most days of the week. Activities may include walking, swimming, or biking. Work with your health care provider or dietitian to adjust your eating plan to your individual calorie needs. What foods should I eat? Fruits All fresh, dried, or frozen fruit. Canned fruit in natural juice (without added sugar). Vegetables Fresh or frozen vegetables (raw, steamed, roasted, or grilled). Low-sodium or reduced-sodium tomatoand vegetable juice. Low-sodium or reduced-sodium tomato sauce and tomato paste. Low-sodium or reduced-sodium canned vegetables. Grains Whole-grain or whole-wheat bread. Whole-grain or whole-wheat pasta. Brown rice. Oatmeal. Quinoa. Bulgur. Whole-grain and low-sodium cereals. [place] bread. Low- fat, low-sodium crackers. Whole-wheat flour tortillas. Meats and other proteins Skinless chicken or turkey. Ground chicken or turkey. Pork with fat trimmed off. Fish and seafood. Egg whites. Dried beans, peas, or lentils. Unsalted nuts, nut butters, and seeds. Unsalted canned beans. Lean cuts of beef with fat trimmed off. Low-sodium, lean precooked or cured meat, such as sausages or meat loaves. Dairy Low-fat (1%) or fat-free (skim) milk. Reduced-fat, low-fat, or fat-free cheeses. Nonfat, low-sodiumricotta or cottage cheese. Low-fat or nonfat yogurt. Low-fat, low-sodium cheese. Fats and oils Soft margarine without trans fats. Vegetable oil. Reduced-fat, low-fat, or light mayonnaise and salad dressings (reduced-sodium). Canola, safflower, olive, avocado, soybean, and sunflower oils. Avocado. Seasonings and condiments Herbs. Spices. Seasoning mixes without salt. Other foods Unsalted popcorn and pretzels. Fat-free sweets. The items listed above may not be a complete list of foods and beverages you can eat. Contact a dietitian for more information. What foods should I avoid? Fruits Canned fruit in a light or heavy syrup. Fried fruit. Fruit in cream or butter sauce. Vegetables Creamed or fried vegetables. Vegetables in a cheese sauce. Regular canned vegetables (not low-sodium or reduced-sodium). Regular canned tomato sauce and paste (not low-sodium or reduced-sodium). Regular tomato and vegetable juice (not low-sodium or reduced-sodium). Pickles. Olives. Grains Baked goods made with fat, such as croissants, muffins, or some breads. Dry pasta or rice meal packs. Meats and other proteins Fatty cuts of meat. Ribs. Fried meat. Peace. Bologna, salami, and other precooked or cured meats, such as sausages or meat loaves. Fat from the back of a pig (fatback). Bratwurst. Salted nuts and seeds. Canned beans with added salt. Canned or smoked fish. Whole eggs or egg yolks. Chicken or turkey with skin. Dairy Whole or 2% milk, cream, and [id number]. Whole or full-fat cream cheese. Whole-fat or sweetened yogurt. Full-fat cheese. Nondairy creamers. Whipped toppings. Processed cheese and cheese spreads. Fats and oils Butter. Stick margarine. Lard. Shortening. Ghee. Peace fat. Tropical oils, such as coconut, palm kernel, or palm oil. Seasonings and condiments Onion salt, garlic salt, seasoned salt, table salt, and sea salt. [facility] sauce. Tartar sauce. Barbecue sauce. Teriyaki sauce. Soy sauce, including reduced-sodium. Steak sauce. Canned and packaged gravies. Fish sauce. Oyster sauce. Cocktail sauce. Store-bought horseradish. Ketchup. Mustard. Meat flavorings and tenderizers. Bouillon cubes. Hot sauces. Pre-made or packaged marinades. Pre-made or packaged taco seasonings. Relishes. Regular salad dressings. Other foods Salted popcorn and pretzels. The items listed above may not be a complete list of foods and beverages you should avoid. Contact a dietitian for more information. Where to find more information National Heart, Lung, and Blood [place]: www.nhlbi.nih.gov [place] [employer]: www.heart.org Academy of Nutrition and Dietetics: www.eatright.org National Kidney Foundation: www.kidney.org Summary The DASH eating plan is a healthy eating plan that has been shown to reduce high blood pressure (hypertension). It may also reduce your risk for type 2 diabetes, heart disease, and stroke. When on the DASH eating plan, aim to eat more fresh fruits and vegetables, whole grains, lean proteins, low-fat dairy, and heart-healthy fats. With the DASH eating plan, you should limit salt (sodium) intake to 2,300 mg a day. If you have hypertension, you may need to reduce your sodium intake to 1,500 mg a day. Work with your health care provider or dietitian to adjust your eating plan to your individual calorie needs. This information is not intended to replace advice given to you by your health care provider. Make sure you discuss any questions you have with your health care provider. Document Revised: 06/21/2020 Document Reviewed: 06/21/2020 [employer] Patient Education 2022 [employer] [facility] [place] 03-14-2023 [facility]* Encounter Date Diagnosis Assessment Notes Treatment Notes Treatment Clinical Notes Oct, Fecal incontinence (ICD-10 - R15.9) [employer] Other 03-30-2022 Evaluation note* Encounter Date Diagnosis Assessment Notes Treatment Notes Treatment Clinical Notes Sep, Fecal incontinence (ICD-10 - R15.9) Sep, Watery stools (ICD-10 - R19.5) GOING 7 TIMES A DAY MUCOUS IS NOTED. Sep, Abdominal cramps (ICD-10 - R10.9) DOES EXPERIENCE THE CRAMPING. Sep, Ulcerative colitis (ICD-10 - K51.90) PATIENT WAS ON THE CHOLESTYRAMINE PACKETS AND THE BUDESONIDE WAS TO EXPENSIVE. PATIENT WAS ON PREDNISONE PROCEED WITH FLEX SIG [employer] Other Evaluation + Plan note Future Appointments Appointment Date:05/27/2022 01:00:00 PM Scheduled Provider: Location:[facility] Live Appointment Type:FM Medicare Wellness Subsequent Appointment Date:06/11/2022 03:40:00 PM Scheduled Provider:Panchito DIALLO DO Location:[facility] Appointment Type: Open Future Scheduled Tests Laboratory* HgbA1c 05/12/22 * Lab Miscellaneous-LC 05/26/21 * Microalbumin Level Urine 05/12/22 * CBC w/ Auto Diff 05/12/22 * Comprehensive Metabolic Panel 05/12/22 * Estradiol Level 05/12/22 * Lipid Panel 05/12/22 * Progesterone Level 05/12/22 * Thyroid Stimulating Hormone 05/12/22 Radiology* MA Mamm Screen w/CAD if perf and 3D Jace 05/26/21 [facility] Evaluation + Plan note Future Appointments Appointment Date:06/11/2022 03:40:00 PM Scheduled Provider:Panchito DIALOL DO Location:[facility] Appointment Type: Open Diagnostic Tests Pending * Estradiol [facility]03[facility] Future App[facility]ments Appointment Date:01/03/2024 02:00:00 PM Scheduled Provider: Location:[facility] Appointment Type: Medicare Wellness Subsequent Future Scheduled Tests Radiology* MA Mamm Screen w/CAD if perf and 3D Jace 12/31/22 [facility] Evaluation + Plan note Future Appointments Appointment Date:01/03/2024 02:00:00 PM Scheduled Provider: Location:[facility] Appointment Type: Medicare Wellness Subsequent Future Scheduled Tests Laboratory* CBC w/ Auto Diff 01/04/23 * Comprehensive Metabolic Panel 01/04/23 Radiology* MA Mamm Screen w/CAD if perf and 3D Jace 12/31/22 [facility] note[facility] InformationNort [employer] Other Evaluation noteNo assessment information available [facility] Work Phone: History and physical note Author Geovanny Schaffer [facility] October 13, 2022 2:16pm Note Date/Time October 13, 2022 2:1 6pm [facility] [address] [place] [address] Gastroenterology H&P Signed Patient: Cari Hale MR#: [id number] : 1965 Acct:[id number] Age/Sex: 57 / F Adm Date: 3 Loc: Room: Type: [facility] Attending Dr: Geovanny Schaffer MD Copies to: Geovanny Schaffer MD Panchito Valenzuela Logan ~ Date of Service: 10/13/2022 HISTORY & PHYSICAL: Patient's history with special attention to the cardiovascular, pulmonary systems and the current problem was reviewed with the patient immediately prior to the procedure. Present medications and doses reviewed in the EMR. Allergies and pertinent laboratory tests were also reviewedat this time in the EMR. The physical examination, as below, was then performed. Indication, assessment and HPI: 57-year-old female presents for flexible sigmoidoscopy to evaluate change in bowel habits with diarrhea Family history of GI malignancy? No PHYSICAL EXAMINATION Mouth and Pharynx : Moist mucus membranes, normal dentition Cardiac: Regular rate, regular rhythm Pulmonary: Clear to auscultation bilaterally, no wheezing Neurological: Alert and oriented x3, no focal deficits noted Abdomen: Abdomen soft, non-tender REVIEW OF SYSTEMS Constitutional: Denies malaise, fevers Cardiovascular: Denies chest pain, palpitations Respiratory: Denies shortness of breath, wheezing Gastrointestinal: Per HPI Genitourinary: Denies dysuria, polyuria Musculoskeletal: Denies joint swelling, joint stiffness Neurological: Denies numbness, tingling Integumentary: Denies rashes, skin lesions Endocrine: Denies fatigue, weight loss Written informed consent obtained from the patient. Risks (including but not limited to perforation, infection, bloating, bleeding, need for emergent surgeryand loss of life), benefits and alternatives explained and questions answered. The patient verbalized understanding. Based on history patient is an appropriate candidate for the procedure. Geovanny Schaffer MD Documented By: Geovanny Schaffer MD 10/13/22 1415 Signed By: <Electronically signed by Geovanny Schaffer MD> 10/13/22 1416 [facility] Work Phone: Hospital course Narrative No data available for this section [facility] Discharge instructions No data available for this section [facility] Discharge instructions Additional Instructions DISCHARGE INSTRUCTIONS FOR FLEXIBLE SIGMOIDOSCOPY WHAT TO EXPECT: - You may feel full, gassy or cramping after your procedure. In some cases, this may be from a few hours to a day. Walking may help relieve the discomfort. - If you have polyp(s) removed you may note some minor bloody discharge after your first bowel movements. - You should begin to recover from anesthesia within 1 hour of the procedure, however may feel groggy for the next 24 hours. DO's AND DON'Ts: - Call your doctor right away if you have a hard abdomen, severe pain, are passing lots of bright red blood or clots. - Call your doctor if you develop any rashes, hives or difficulty breathing. - Let your doctor know if you have not had a bowel movement by 3 days after your procedure. - If you take 81 mg aspirin for your heart it is safe to resume this medication. - If you take other blood thinner medications your doctor will instruct you when these can safely be resumed. - Do NOT drive for 24 hours. - Do NOT operate machinery such as power tools, [employer] mowers, [employer], sewing machines, etc. for 24 hours. - Avoid alcoholic beverages and drugs for allergies, nerves, or sleep. - Do NOT stay alone. Do NOT leave your child unattended. - Do NOT make important personal or business decisions or sign any legal documents. - Eat solid foods and drink liquids in smaller amounts than usual until normal appetite returns. If you should experience an upset stomach, liquids high in sugar content (soda, Suresh-Aid, non-acid juices) are recommended. - You can resume normal activities tomorrow. FOLLOW UP & RECOMMENDATIONS: -Start budesonide 9 mg daily -Dr. Schaffer's office will contact you regarding your pathology results and your follow-up -Notify the doctor if you have any problems. -Follow up with PCP. -Office number [phone].[facility] Work Phone: Progress note No data available for this section [facility] [place] Assessments No Assessments Information Available Summary Purpose Family History No Family History Records Found Relationship Condition Age at Onset Recorded Date/T anabel Not Specified Diabetes mellitus Unknown grandparent Diabetes mellitus Unknown sister Diabetes mellitus Unknown Advance Directives No Advanced Directives Records Found Advance Directive Response Recorded Date/ Time Advance Directives No June 2:41pm Chief Complaint and Reason for Visit Chief Complaint Diarrhea, Abdominal Pain, Fecal Incontinence Additional Source Comments INFORMATION SOURCE (unrecogn ized section and content) DATE CREATED AUTHOR 01/19/2022 [facility] DATE CREATED AUTHOR AUTHOR'S ORGANIZ ATION 10/17/2023 [facility] DATE CREATED AUTHOR AUTHOR'S ORGANIZ ATION 03/23/2024 [facility] DATE CREATED AUTHOR AUTHOR'S ORGANIZ ATION 06/14/2024 [facility] REASON FOR VISIT (unrecogniz ed section and content) PATIENT HERE WITH COMPLAINTS OF FECAL INCONTINENCE. PATIENT STATES THAT THIS IS BROWN WATERY STOOLS. PATIENT STATES THE PAST 3-4 YEARS HAS GOTTEN WORSE. PATIENT STATES TODAY SHE HAS GONE 7 TIMES TODAY. PATIENT STATES THAT THIS DOES HAVE MUCOUS NOTED. PATIENT STATES SHE HAS HAD 2-3 COLONOSCOPIES IN THE PAST AND SHE DID HAVE POLYPS NOTED AND WAS DIAGNOISED WITH ULCERATIVE COLITIS. PATIENT STATES SHE WAS TO TAKE BUDESONIDE AND THIS COST $90 A MONTH AND SHE IS NOT ABLE TO AFFORD THIS. PATIENT LAST COLON WAS ABOUT 1 YEAR AGO AND MORE POLYPS FOUND AND NEGATIVE FOR C.DIFF.COVID TESTINGClinical Acute IllnessClinicalClinicalAppointmentNo InformationClinicalNo InformationNo Information Patient Care team informatio n (unrecognized section and content) Team Status: Active Member Role Status Dates Panchito Diallo DO Primary Care Provider Active Team Status: Inactive Member Role Status Dates Panchito Diallo DO Primary Care Provider Active Geovanny Schaffer MD Attending Provider Active FOR RECORDS PERTAINING TO PATIENTS WHO ARE OR HAVE BEEN ENROLLED IN A CHEMICAL DEPENDENCY/SUBSTANCEABUSE PROGRAM, SOME INFORMATION MAY BE OMITTED. This clinical summary was aggregated from multiple sources. Caution should be exercised in using it in the provision of clinical care. This summary normalizes information from multiple sources, and as a consequence, information in this document may materially change the coding, format and clinical context of patient data. In addition, data may be omitted in some cases. CLINICAL DECISIONS SHOULD BE BASED ON THE PRIMARY CLINICAL RECORDS. [employer] provides no warranty or guarantee of the accuracy or completeness of information in this document.
== END 2024-07-18 14:30 | disposition home or self-care (01) ==
LOC: CT 14:29
DX: Z12.31 Encounter for screening mammogram for malignant neoplasm of breast (principal); Z87.891 Personal history of nicotine dependence; R91.8 Other nonspecific abnormal finding of lung field; R92.8 Other abnormal and inconclusive findings on diagnostic imaging of breast
CPT/HCPCS: 71271; 77063; 77067

== ENCOUNTER 2024-07-19 17:44 | Emergency (ER) | payer OTHER, SELFPAY ==
--- OUTSIDE RECORDS SUMMARY | 2024-07-19 17:51 | XMS_ITS | CCD ---
Author Organization 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 Name Role Phone REQUEST, DR NONE LISTED Primary Care UnavailSHAIKH Leydi Mirza Admitting Unavailable SHAIKH Leydi SHELBY Attending Unavailable DONNIE, DR JESSE Olmos Consulting Unavailable CHRISTIANA, DR BELLAMY Consulting Unavailable SHAIKH Leydi SHELBY Consulting Unavailable SILVA ALMANZAR Consulting Unavailable Geovanny Schaffer Unavailable Panchito DIALLO Primary Care Physician DO Panchito Diallo Primary Care Provider MD Geovanny Schaffer Attending Provider Oren Jones Unavailable Haylee Hinds Admitting Unavailable Haylee Hinds Attending Unavailable Panchito Diallo Primary Care Unavailable Frida Valdez Primary Care Physician [phone] Frida Valdez Attending Unavailable Frida Valdez Attending [...] ; Translations: [Lipitor] Drug Allergy 0 [facility] [place] Repository (16 sources) Penicillins; Translations: [penicillins] Drug allergy (disorder) 0 Swelling of Lip/Tongue/Thro at [facility] [place] Repository (19 sources) atorvastatin; Translations: [atorvastatin] Drug Allergy 3 Unknown, Unknown Reaction [facility] (10 sources) Penicillin G Drug Allergy Unknown [employer] Other (14 sources) Acetaminophen / HYDROcodone; Translations: [acetaminophen-hy drocodone] Drug Allergy [facility] (14 sources) Pravastatin; Translations: [pravastatin] Drug Allergy [facility] (1 source) atorvastatin Drug Allergy 3 [facility] Repository (1 source) Penicillin Drug Allergy 3 [facility] Repository (1 source) Penicillins Drug allergy (disorder) 3 [facility] Repository Medications Current Medications Medication Drug Class(es) Dates Sig (Normalized) Sig (Original) amitriptyline hydrochloride 10 mg oral tablet (2 sources) Tricyclic Antidepressant Start: 12-09-2020 take 1 tablet by mouth once daily at bedtime amitriptyline 10 mg Tab 10 mg = 1 tab(s), Oral, Once a day (at bedtime), # 90 tab(s), Refills(s) 3, Pharmacy: [facility]/pharmacy #[id number], 160, cm, 12/09/20 13:39:00 EDT, Height/Length [...] qAM, # 90 cap(s), Refills(s) 2, Pharmacy: [facility]/pharmacy #[id number], 160, cm, 09/05/20 14:51:00 EST, Height/Length [...] tab(s), Oral, BID, 60 tab(s), Refill(s) 5, [facility]/pharmacy #[id number], 160, cm, 09/05/20 14:51:00 EST, Height/Length Dosing, 60.4, kg, 09/05/20 14:51:00 EST, Weight Dosing Start Date: 09/24/20 Status: Ordered citalopram 10 mg oral tablet (11 sources) Serotonin Reuptake Inhibitor Start: 10-13-2022 take 10 mg by mouth once daily Citalopram Active 10 MG PO Daily October 13, 2022 12:00am Start: 05-12-2022 take 3 tablets by mo [facility] once daily, then take [...] week., # 74 tab(s), Refills(s) 0, Pharmacy: [facility]/pharmacy #[id number], 158, cm, 05/12/22 15:40:00 EDT, Height/Length Dosing, 59.8, k... Start Date: 05/12/22 Status: Ordered Start: 02-05-2022 [facility] CeleXA 40 mg Tab 40 mg = 1 tab(s), Oral, Daily, # 90 tab(s), Refills(s) 1, Pharmacy: [facility]/pharmacy #[id number], 158, cm, 09/02/21 14:45:00 EST, Height/Length Dosing, 60, kg, 09/02/21 14:45:00 EST, Weight Dosing Start Date: 02/05/22 Status: Ordered Citalopram [place] bromide Active clopidogrel 75 mg oral tablet [...] Daily, # 90 tab(s), Refills(s) 0, Pharmacy: [facility]/pharmacy #[id number], 158, cm, 12/31/22 15:13:00 EDT, Height/Length Dosing, 57.9, kg, 12/31/22 15:13:00 EDT, Weight Dosing Start Date: 12/31/22 Status: Ordered estradiol 2 mg oral tablet (9 sources) Estrogen Start: 12-07-2023 take 1 tablet by mouth at bedtime estradiol 2 mg Tab 2 mg = 1 tab(s), Oral, Bedtime, # 90 tab(s), Refills(s) 3, Pharmacy: [facility]/pharmacy #[id number], 158, cm, 05/25/23 15:27:00 EDT, Height/Length Dosing, 57.3, kg, 05/25/23 15:27:00 EDT, Weight Dosing Start Date: 12/07/23 Status: Ordered Start: 12-25-2022 take 1 tablet by luke th at bedtime estradiol 2 mg Tab 2 mg = 1 tab(s), Oral, Bedtime, # 90 tab(s), Refills(s) 3, Pharmacy: [facility]/pharmacy #[id number], 158, cm, 06/11/22 15:39:00 EST, Height/Length [...] Bedtime, # 90 tab(s), Refills(s) 3, Pharmacy: [facility]/pharmacy #[id number], 158, cm, 09/02/21 14:45:00 EST, Height/Length Dosing, 60, kg, 09/02/21 14:45:00 EST, Weight Dosing Start Date: 01/09/22 Status: Ordered Fish Oils (4 sources) gabapentin 300 mg oral capsule (11 sources) Anti-epileptic Agent Start: 12-08-2021 take 1 capsule by mouth three times daily gabapentin 300 mg Cap 300 mg = 1 cap(s), Oral, TID, M54.106, # 270 cap(s), Refills(s) 1, Pharmacy: [facility]/pharmacy #[id number], 158, cm, 09/02/21 14:45:00 EST, Height/Length [...] anxiety, # 40 tab(s), Refills(s) 3, Pharmacy: [facility]/pharmacy #6177, 158, cm, 05/25/23 15:27:00 EDT, Height/Length Dosing, 57.3, kg, 05/25/23 15:27:00 EDT, Weight Dosing Start Date: 02/04/24 Status: Ordered Start: 02-01-2023 take 1 tablet by luke four times daily as needed for anxiety hydrOXYzine hydrochloride 25 mg Tab 25 mg = 1 tab(s), Oral, QID, PRN for anxiety, # 40 tab(s), Refills(s) 0, Pharmacy: [facility]/pharmacy #[id number], 158, cm, 12/31/22 15:13:00 EDT, Height/Length Dosing, 57.9, kg, 12/31/22 15:13:00 EDT, Weight Dosing Start Date: 02/01/23 Status: Ordered Start: 12-31-2022 take 1 tablet by luke four times daily as needed for anxiety hydrOXYzine hydrochloride 25 mg Tab 25 mg = 1 tab(s), Oral, QID, PRN for anxiety, # 40 tab(s), Refills(s) 0, Pharmacy: [facility]/pharmacy #6177, 158, cm, 12/31/22 15:13:00 EDT, Height/Length [...] day(s), # 120 tab(s), Refills(s) 0, [id number], cm, 12/31/22 15:13:00 EDT, Height/Length [...] E11.01, # 10 mL, Refills(s) 5, Pharmacy: [facility]/pharmacy #[id number], 158, cm, 05/25/23 15:27:00 EDT, Height/Length Dosing, 57.3, kg, 05/25/23 15:27:00 EDT, Weight Dosing Start Date: 12/01/23 Status: Ordered Start: 02-08-2023 NovoLOG 100 un its/mL injectable solution See Instructions, 35 units daily per pump. Dx E11.01, # 10 mL, Refills(s) 5, Pharmacy: [facility]/pharmacy #6177, 158, cm, 12/31/22 15:13:00 EDT, Height/Length Dosing, 57.9, kg, 12/31/22 15:13:00 EDT, Weight Dosing Start Date: 02/08/23 Status: Ordered Start: 07-23-2022 NovoLOG 100 un its/mL injectable solution See Instructions, 35 units daily per pump. Dx E11.01, # 10 mL, Refills(s) 5, Pharmacy: [facility]/pharmacy #6177, 158, cm, 06/11/22 15:39:00 EST, Height/Length Dosing, 61.4, kg, 06/11/22 15:39:00 EST, Weight Dosing Start Date: 07/23/22 Status: Ordered Start: 10-24-2021 NovoLOG 100 un its/mL injectable solution See Instructions, 35 units daily per pump. Dx E11.01, # 10 mL, Refills(s) 5, Pharmacy: [facility]/pharmacy #6177, 158, cm, 09/02/21 14:45:00 EST, Height/Length [...] Start: 05-12-2022 take 3 tablets by mo [facility] once daily lamotrigine 50 mg oral tablet, extended release See Instructions, 3 tab(s) Oral Daily x 2 week, then 2 tabs x 2 week then 1 tab x 2 week. Then will start the 25 mg, # 74 tab(s), Refills(s) 0, [id number], cm, 05/12/22 15:40:00 EDT, Height/Length Dosing, 59.8, kg, 05/12/22 15:... Start Date: 05/12/22 Status: Ordered Start: 02-05-2022 [facility] lamotrigine 200 mg Tab 200 mg = 1 tab(s), Oral, Daily, # 90 tab(s), Refills(s) 1, [facility], cm, 09/02/21 14:45:00 EST, Height/Length Dosing, 60, kg, 09/02/21 14:45:00 EST, Weight Dosing Start Date: 02/05/22 Status: Ordered lamoTRIgine Acti ve levothyroxine sodium 0.15 mg oral tablet (19 sources) l-Thyroxine Start: 02-28-2024 take 1 tablet by mouth once daily levothyroxine 150 mcg (0.15 mg) Tab See Instructions, TAKE 1 TABLET BY MOUTH EVERY DAY, # 90 tab(s), Refills(s) 1, Pharmacy: [facility] STORE [id number], 158, cm, 05/25/23 15:27:00 EDT, Height/Length Dosing, [...] Daily, # 90 tab(s), Refills(s) 1, [facility], cm, 06/11/22 15:39:00 EST, Height/Length Dosing, 61.4, kg, 06/11/22 15:39:00 EST, Weight Dosing Start Date: 08/13/22 Status: Ordered Start: 02-05-2022 take 1 tablet by luke th once daily Synthroid 150 mcg (0.15 mg) Tab 0.15 mg = 1 tab(s), Oral, Daily, # 90 tab(s), Refills(s) 1, Pharmacy: [facility]/pharmacy #6177, 158, cm, 09/02/21 14:45:00 EST, Height/Length [...] day(s), # 14 tab(s), Refills(s) 0, Pharmacy: [facility]/pharmacy #6177, 158, cm, 05/12/22 15:40:00 EDT, Height/Length [...] bedtime), # 90 cap(s), Refills(s) 3, Pharmacy: [facility]/pharmacy #6177, 158, cm, 05/25/23 15:27:00 EDT, Height/Length Dosing, 57.3, kg, 05/25/23 15:27:00 EDT, Weight Dosing Start Date: 01/03/24 Status: Ordered Start: 01-06-2023 take 1 capsule by mo uth once daily at bedtime progesterone 100 mg oral capsule 100 mg = 1 cap(s), Oral, Once a day (at bedtime), # 90 cap(s), Refills(s) 3, Pharmacy: [facility]/pharmacy #6177, 158, cm, 12/31/22 15:13:00 EDT, Height/Length Dosing, 57.9, kg, 12/31/22 15:13:00 EDT, Weight Dosing Start Date: 01/06/23 Status: Ordered Start: 01-16-2022 take 1 capsule by mo uth once daily at bedtime progesterone 100 mg oral capsule 100 mg = 1 cap(s), Oral, Once a day (at bedtime), # 90 cap(s), Refills(s) 3, Pharmacy: [facility]/pharmacy #6177, 158, cm, 09/02/21 14:45:00 EST, Height/Length Dosing, 60, kg, 09/02/21 14:45:00 EST, Weight Dosing Start Date: 01/16/22 Status: Ordered Progesterone Act marlo propranolol hydrochloride 20 mg oral tablet (13 sources) beta-Adrenergic Geoffrey Start: 05-12-2022 take 1 tablet by mouth twice daily propranolol 20 mg Tab 20 mg = 1 tab(s), Oral, BID, # 180 tab(s), Refills(s) 3, Pharmacy: [facility]/pharmacy #6177, 158, cm, 05/25/23 15:27:00 EDT, Height/Length Dosing, 57.3, kg, 05/25/23 15:27:00 EDT, Weight Dosing Start Date: 05/26/23 Status: Ordered rosuvastatin calcium 5 mg oral tablet (11 sources) HMG-CoA Reductase Inhibitor Start: 01-18-2024 take 1 tablet by mouth once daily rosuvastatin 5 mg Tab 5 mg = 1 tab(s), Oral, Daily, # 90 tab(s), Refills(s) 1, [facility] 158, cm, 05/25/23 15:27:00 EDT, Height/Length Dosing, 57.3, kg, 05/25/23 15:27:00 EDT, Weight Dosing Start Date: 01/18/24 Status: Ordered Start: 07-31-2022 take 1 tablet by luke th once daily rosuvastatin 5 mg Tab 5 mg = 1 tab(s), Oral, Daily, # 90 tab(s), Refills(s) 1, [facility] 158, cm, 06/11/22 15:39:00 EST, Height/Length Dosing, 61.4, kg, 06/11/22 15:39:00 EST, Weight Dosing Start Date: 07/31/22 Status: Ordered sertraline 50 mg oral tablet (3 sources) Serotonin Reuptake Inhibitor Start: 01-03-2023 take 1 tablet by mouth once daily Zoloft 50 mg Tab 50 mg = 1 tab(s), Oral, Daily, # 90 tab(s), Refills(s) 0, [facility] 158, cm, 12/31/22 15:13:00 EDT, Height/Length [...] qWeek, # 12 EA, Refills(s) 3, [facility] 158, cm, 05/25/23 15:27:00 EDT, Height/Length Dosing, 57.3, kg, 05/25/23 15:27:00 EDT, Weight Dosing Start Date: 12/10/23 Status: Ordered Start: 12-25-2022 Vitamin D 50,0 00 intl units (1.25 mg) oral capsule 50,000 International_Unit, Oral, qWeek, # 12 EA, Refills(s) 3, [facility] 158, cm, 06/11/22 15:39:00 EST, Height/Length Dosing, 61.4, kg, 06/11/22 15:39:00 EST, Weight Dosing Start Date: 12/25/22 Status: Ordered Start: 10-23-2021 Vitamin D 50,0 00 intl units (1.25 mg) oral capsule 50,000 International_Unit, Oral, qWeek, # 12 EA, Refills(s) 3, [facility] 158, cm, 09/02/21 14:45:00 EST, Height/Length [...] disease (10 sources) Atherosclerotic heart disease of [place] coronary artery without angina pectoris; Translations: [Coronary [...] above: Knees Other aftercare (1 source) Other long-term (current) drug therapy; Translations: [OTH INTERMEDIATE CURRENT DRUG THERAPY] Onset: 01-19-2022 Episodic Other aftercare (1 source) penitentiary (current) use of insulin; Translations: [GROUP HOME WORKER CURRENT USE OF INSULIN] Onset: 01-19-2022 Episodic Other aftercare (1 source) Long-term current use of insulin; Translations: [penitentiary (current) use of insulin] Onset: 12-31-2022 Episodic [...] HALE Terrie; Caller Number: H , M [facility] Provider Letteron 03-24-2024 Provider Letter Provider Letter March 24, 20[address] [place] [phone] CARI HALE 1965 Dear Cari, We have been trying to reach you with no success. It is important that you return our call regarding your recent hospital discharge upon receiving this letter. Also, at the time of your call, please provide us with your current information. Thank you for your prompt attention to this matter. Sincerely, Tre Salas RN Distribution Analyst [phone] [facility] CHEMISTRYOrdered By: Lab ROP User on 03-22-2024 Glucose [Mass/Vol] 354 mg/dL High 55 - 99 mg/dL [facility] POC Subsection Comment on above: Result Comment: Carter chrystal RN/ POC Device SN [id number] 1 Invalid Interpretation Code [facility] POC Subsection POC User ID [id number] 1 Invalid Interpretation Code [facility] POC Subsection POC Username PITA BAUTISTA Invalid Interpretation Code [facility] POC Subsection Glucose [Mass/Vol] 52 mg/dL Low 55 - 99 mg/dL [facility] POC Subsection Comment on above: Result Comment: Carter chrystal RN/ POC Device SN [id number] 1 Invalid Interpretation Code [facility] POC Subsection POC User ID [id number] 1 Invalid Interpretation Code [facility] POC Subsection [...] 370 Contrast amount in ml's: 100 Normal [facility] Capillary Glucose POCon 03-03 Glucose [Mass/Vol] 354 mg/dL High 55-99 [facility] Comment on above: Result Comment: Carter SERRANO Performed By: #### 2 [id number] ####[facility] [address] [place] [address] Glucose [Mass/Vol] 52 mg/dL Low 55-99 [facility] Comment on above: Result Comment: Carter SERRANO Performed By: #### 2 [id number] #### [facility] [address] [place] [address] Discharge Note-Nursingon Discharge Note-Nursing Discharge Note-Nursing CARI [...] When: Within 2 to 4 weeks Where: [facility] [place] [address]- Medications What How Much When Why Instructions [...] bedtime) R (more content not included)... Normal [facility] ED Note-Physicianon 03-22-20 ED Note-Physician ED [...] she was able to call her via [employer] on her phone and scream for help. [...] Patient seen and evaluated by the physician title assistant. Attending physician was present in the emergency department and supervised care. This visit was performed by both the physician and an APC. I performed all aspects of the MDM as documented. This report was transcribed using voice recognition software. Every effort was made to ensure accuracy, however, inadvertently computerized lap welder mistakes may be present. Appropriate healthcare PPE was used in evaluating this patient. The patient was placed in a mask. The healthcare provider was wearing mask, gloves, and utilizing proper hand hygiene. All equipment was properly cleansed. I performed a substantive part of the MDM during the patient?s E/M visit. (more content not included)... Normal [facility] Comment on above: Result Comment: Elec tronically Signed By: Taylor García PA-C\.br\Date and Time Signed: 03/21/24 18:42 EDT\.br\Electronically Co-Signed By: Han Olivera M.D.\.br\Date and Time Co-Signed: 03/22/24 13:39 EDT Extra Alexander 03-22-2024 WB Tube Collected Yes Invalid Interpretation Code [facility] Comment on above: Performed By: #### 1 [id number] #### [facility] [address] [place] [address] Free T4on 03-22-2024 Free T4 [Mass/Vol] 1.32 ng/dL Normal 0.58-1.64 [facility] Comment on above: Performed By: #### 2 [id number] #### [facility] [address] [place] [address] Inpatient Clinical Summaryon 03-22-2024 Inpatient Clinical Summary Inpatient Clinical Summary [address] [address] Clinical Summary Person Information: Name: CARI HALE Age: 59 Years : 1965 Sex: Female PCP: Frida Khan Marital Status: Race: White Ethnicity: Non- or Language: Sudanese Visit Id: Visit Reason: Weakness or fatigue; Potential stroke; STROKE Speciality: Acuity: Enc Type: Observation Med Service: Medical Arrival: 03/21/2024 13:41:38 Discharge: Dispo Type: Admitted as IP to this Hosp Address: [address] [place] [id number] Provider Notes: Diagnosis: 1:TIA (transient ischemic attack); [...] Follow up: With: Address: When: Bruno HAN[place], [place] [id number] Within 2 to 4 weeks Patient Education Information: Alcohol Misuse and Dependence Information, Adult; High Cholesterol; Type 2 Diabetes Mellitus, Diagnosis, Adult; Hypertension, Adult, [id number]-Obgp; Smoking Tobacco Information, Adult; Core Measures Transient Ischemic Attack (TIA) [facility] [place] Core Measures: Stroke (Cerebrovascular Accident) [facility] [facility] Inpatient Patient Summaryon 03-22-2024 Inpatient Patient Summary Inpatient Patient Summary [address] [address] Patient Discharge Instructions PERSON INFORMATION [...] Follow up: With: Address: When: Bruno H[place], [place] [address] [place] [address] Within 2 to 4 weeks [...] Edy e Manageron 03-22-2024 Interdisciplinary Note - Reed Polisher Interdisciplinary Note - Reed Polisher Patient is drowsy does not stay awake enough to speak to CRM. Unable at this time to assess DC needs Patient is here as observation for possible stroke. Patient is assigned to [facility], see notes. Patient has neurology on case. [...] Jesse and he is her ride at [place]. Patient verified PCP as Dr Diallo, dme and insurance. Patient is here as observation for possible stroke. Patient is assigned to [facility], see notes. Patient has neurology on case. Patient will get a MRI and MRA. Patient is pending PT recs. Patient declines at this time DC needs for DME, HH or PM. If she changes her mind for needs. She will call [facility]. Patient was provided contact info, susanna board updated. CRM Following Normal [facility] Comment on above: Result Comment: Elec tronically Signed By: Rose uLcio\.br\Date and Time Signed: 03/22/24 15:08 EDT Interdisciplinary Note - Soc ial Workeron 03-22-2024 Interdisciplinary Note - Director Compensation Interdisciplinary Note - Director Compensation There was a system generated request for [...] her consumption and she voiced understanding. Normal [facility] MRA Head w/o Contraston 03-03 MRA Head w/o Contrast Exam Date/Time: 03/22/2024 14:04 EDT Reason for Exam: Stroke Report IMPRESSION: NEGATIVE LIMITED HEAD MRA. EXAM: MRA Head w/o Contrast DATE: 03/22/2024 1:05 PM CLINICAL HISTORY: Stroke. Weakness and falls. COMPARISON: Head MRI 03/22/2024. TECHNIQUE: Three-dimensional [id number]-zxgarn MRA of the intracranial arterial circulation was performed. Routine and volume rendered images were obtained on a three-dimensional workstation. Narrowings are estimated by NASCET criteria. FINDINGS: Motion artifact limits detail. There is no significant stenosis, branch occlusion, intracranial aneurysm, or developmental vascular variations of concern identified. Ordering Provider: Ghada VALDVOINOS FINAL REPORT Dictated: 03/22/2024 2:29 pm Jerrod Alexander MD Signed (Electronic Signature): 03/22/2024 2:29 pm Signed by: Jerrod Alexander MD Transcribed by: HARRY Technologist: TRACY [facility] MRI Brain w/o Contraston MRI Brain [...] 03/22/2024 2:28 pm Signed by: Benjamin HANKS, eJrrod Silverio Transcribed by: HARRY Technologist: TRACY Normal [facility] TSH With T4fr Reflexon 03-22 TSH Qn 0.01 m[IU]/L Low 0.34-5.60 [facility] Comment on above: Performed By: #### 1 [id number] #### [facility] [address] [place] [address] BB Draw & Holdon 03-21-2024 BB D&H Sample drawn for Blood Ba Normal [facility] Comment on above: Performed By: #### 1 [id number] #### [facility] [address] [place] [address] CBC w/ Auto Diffon 4 Basophils/100 WBC (Bld) 0.8 % Normal 0.0-2.0 [facility] Comment on above: Performed By: #### 2 [id number] #### [facility] [address] [place] [address] Basophils/Leukocytes Auto (Bld) [Pure # fraction] 0.1 E9/L Normal 0.0-0.2 [facility] Comment on above: Performed By: #### 2 [id number] #### [facility] [address] [place] [address] Eosinophils (Bld) [#/Vol] 0.2 E9/L Normal 0.0-0.5 [facility] Comment on above: Performed By: #### 2 [id number] #### [facility] [address] [place] [address] Eosinophils/100 WBC (Bld) 2.5 % Normal 0.0-8.0 [facility] Comment on above: Performed By: #### 2 [id number] #### [facility] [address] [place] [address] Erythrocyte distribution width (RBC) [Ratio] 13.7 % Normal 10.9-14.2 [facility] Comment on above: Performed By: #### 2 [id number] #### [facility] [address] [place] [address] Hematocrit (Bld) [Volume fraction] 39.5 % Normal 34.0-46.0 [facility] Comment on above: Performed By: #### 2 [id number] #### [facility] [address] [place] [address] Hemoglobin (Bld) [Mass/Vol] 13.0 g/dL Normal 12.0-16.0 [facility] Comment on above: Performed By: #### 2 [id number] #### [facility] [address] [place] [address] Lymphocytes (Bld) [#/Vol] 2.1 E9/L Normal 1.0-4.0 [facility] Comment on above: Performed By: #### 2 [id number] #### [facility] [address] [place] [address] Lymphocytes/100 WBC (Bld) 22.4 % Normal 14.0-50.0 [facility] Comment on above: Performed By: #### 2 [id number] #### [facility] [address] [place] [address] MCH (RBC) [Entitic mass] 32.8 pg Normal 27.0-34.0 [facility] Comment on above: Performed By: #### 2 [id number] #### [facility] [address] [place] [address] MCHC (RBC) [Mass/Vol] 32.9 g/dL Normal 31.4-36.0 [facility] Comment on above: Performed By: #### 2 [id number] #### [facility] [address] [place] [address] MCV (RBC) [Entitic vol] 99.8 fL Normal 80.0-100.0 [facility] Comment on above: Performed By: #### 2 [id number] #### [facility] [address] [place] [address] Monocytes (Bld) [#/Vol] 1.0 E9/L Normal 0.2-1.0 [facility] Comment on above: Performed By: #### 2 [id number] #### [facility] [address] [place] [address] Neutrophils (Bld) [#/Vol] 6.1 E9/L Normal 2.0-7.5 [facility] Comment on above: Performed By: #### 2 [id number] #### [facility] [address] [place] [address] Neutrophils/100 WBC (Bld) 63.7 % Normal 36.0-75.0 [facility] Comment on above: Performed By: #### 2 [id number] #### [facility] [address] [place] [address] Platelet mean volume (Bld) [Entitic vol] 7.9 fL Normal 6.4-10.8 [facility] Comment on above: Performed By: #### 2 [id number] #### [facility] [address] [place] [address] Platelets (Bld) [#/Vol] 304.0 E9/L Normal 150.0-500.0 [facility] Comment on above: Performed By: #### 2 [id number] #### [facility] [address] [place] [address] RBC (Bld) [#/Vol] 4.0 E12/L Low 4.3-5.9 [facility] Comment on above: Performed By: #### 2 [id number] #### [facility] [address] [place] [address] WBC corrected for nucl RBC Auto (Bld) [#/Vol] 9.6 E9/L Normal 4.0-11.0 [facility] Comment on above: Performed By: #### 2 [id number] #### [facility] [address] [place] [address] CHEMISTRYOrdered By: Dhiraj DUMAS User on 03-21-2024 Glucose [Mass/Vol] 150 mg/dL High 55 - 99 mg/dL [facility] POC Subsection POC Device SN [id number] Invalid Interpretation Code [facility] P[facility] Subsection POC User ID [id number] Invalid Interpretation Code [facility] POC Subsection POC Username DULCE MARIA BERRY Invalid Interpretation Code [facility] POC Subsection CHEMISTRYOrdered By: SYSTEM SYSTEM on [...] Sensitivity Troponin I Instructions For Use, Pina Chilton, March 2018) Urea nitrogen [Mass/Vol] 7 mg/dL Normal 5 - 21 mg/dL Remisol Chem Urea nitrogen/Creatinine [Mass ratio] 10 mg/mg Normal 10 - 20 Remisol Chem CMPon 03-21-2024 Albumin [Mass/Vol] 3.4 g/dL Normal 3.3-5.0 [facility] Comment on above: Performed By: #### 2 [id number] #### [facility] [address] [place] [address] Albumin/Globulin (S) [Mass conc ratio] 1.4 Normal 1.1-2.2 [facility] Comment on above: Performed By: #### 2 [id number] #### [facility] [address] [place] [address] ALP [Catalytic activity/Vol] 106 Int._Unit/L High 21-98 [facility] Comment on above: Performed By: #### 2 [id number] #### [facility] [address] [place] [address] ALT No additional P-5'-P [Catalytic activity/Vol] 17 Int._Unit/L Normal 6-46 [facility] Comment on above: Performed By: #### 2 [id number] #### [facility] [address] [place] [address] Anion gap [Moles/Vol] 15 mmol/L Normal 6-16 [facility] Comment on above: Performed By: #### 2 [id number] #### [facility] [address] [place] [address] AST [Catalytic activity/Vol] 21 Int._Unit/L Normal 5-43 [facility] Comment on above: Performed By: #### 2 [id number] #### [facility] [address] [place] [address] Bilirubin [Mass/Vol] 0.5 mg/dL Normal 0.0-1.1 [facility] Comment on above: Performed By: #### 2 [id number] #### [facility] [address] [place] [address] Calcium [Mass/Vol] 8.5 mg/dL Low 8.9-11.1 [facility] Comment on above: Performed By: #### 2 [id number] #### [facility] [address] [place] [address] Chloride [Moles/Vol] 105 mmol/L Normal 101-111 [facility] Comment on above: Performed By: #### 2 [id number] #### [facility] [address] [place] [address] CO2 [Moles/Vol] 24 mmol/L Normal 21-31 [facility] Comment on above: Performed By: #### 2 [id number] #### [facility] [address] [place] [address] Creatinine [Mass/Vol] 0.7 mg/dL Normal 0.5-1.3 [facility] Comment on above: Performed By: #### 2 [id number] #### [facility] [address] [place] [address] Globulin (S) [Mass/Vol] 2.5 g/dL Normal 1.4-4.0 [facility] Comment on above: Performed By: #### 2 [id number] #### [facility] [address] [place] [address] Glucose [Mass/Vol] 112 mg/dL Normal 55-199 [facility] Comment on above: Performed By: #### 2 [id number] #### [facility] [address] [place] [address] Potassium [Moles/Vol] 4.3 mmol/L Normal 3.5-5.3 [facility] Comment on above: Performed By: #### 2 [id number] #### [facility] [address] [place] [address] Protein [Mass/Vol] 5.9 g/dL Low 6.0-7.8 [facility] Comment on above: Performed By: #### 2 [id number] #### [facility] [address] [place] [address] Sodium [Moles/Vol] 140 mmol/L Normal 135-145 [facility] Comment on above: Performed By: #### 2 [id number] #### [facility] [address] [place] [address] Urea nitrogen [Mass/Vol] 7 mg/dL Normal 5-21 [facility] Comment on above: Performed By: #### 2 [id number] #### [facility] [address] [place] [address] Urea nitrogen/Creatinine [Mass ratio] 10 No Units Normal 10-20 [facility] Comment on above: Performed By: #### 2 [id number] #### [facility] [address] [place] [address] COAGULATIONOrdered By: Nelida patel Logan on 03-21-2024 aPTT Coag (PPP) [Time] 27.5 s Normal 25.1 - 36.5 second(s) [facility] Comment on above: Interpretive Data: [...] the same coagulation reagent and instrumentation as [facility]. Currently there are no coagulation studies available worldwide for children to 14 days, and no normal ranges. Heparin therapeutic range (represented by Anti-Factor Xa activity of 0.2 - 0.4 U/mL) corresponds to PTT of 56.6 - 109.0 sec. INR Coag (PPP) [Relative time] 0.92 {INR} Invalid Interpretation Code [facility] Comment on above: Interpretive Data: I NR results are specifically intended to assess patients stabilized on long-term Anticoagulation therapy suggested INR s Less Intensive Anticoagulation 2.0 3.0 Conventional Range 3.0 4.5 PT Coag (PPP) [Time] 10.3 s Normal 9.4 - 1 2.5 second(s) [facility] Comment on above: Interpretive Data: [...] the same coagulation reagent and instrumentation as [facility]. Currently there are no coagulation studies available [...] acute intra or extra axial findings. Normal [facility] Capillary Glucose POCon 03-03 Glucose [Mass/Vol] 150 mg/dL High [facility] Comment on above: Performed By: #### 2 [id number] #### [facility] [address] [place] [address] Glucose [Mass/Vol] 281 mg/dL High [facility] Comment on above: Result Comment: Carter jarrell RN/ Performed By: #### 2 [id number] #### [facility] [address] [place] [address] ED Clinical Summaryon 2023 ED Clinical Summary ED Clinical Summary [address] [address] ED Clinical Summary Person Information Name: CARI HALE [facility] Age: 59 Years : 1965 Sex: Female Language: Sudanese PCP: Frida Khan Marital Status: Visit Id: Visit Reason: Weakness or fatigue; Potential stroke; STROKE Speciality: Acuity: 2 Enc Type: Observation Med Service: Medical Arrival: 03/21/2024 13:41:38 Discharge: LOS: 000 05:49 Checkin: 03/21/2024 13:41:38 Checkout: 03/21/2024 19:30:55 Dispo Type: Admitted as IP to this [facility] EVENTS: Event Name Event Status Request [...] 19:17:09 Meds Admin Request 03/21/2024 19:20:30 ADDRESS: [address] [place] [id number] PHYS DOC NOTES: MEDICAL INFORMATION: Prescriptions Given: [...] mg Tab) (more content not included)... Normal [facility] ED Patient Education Noteon 03-21-2024 ED Patient Education Note ED Patient Education Note Normal [facility] ED Patient Summaryon 024 ED Patient Summary ED Patient Summary [place] [id number] Patient Discharge Instructions Person Information Name: CARI HALE Age: 59 Years Arrival Date: 03/21/2024 13:41:38 Discharge Diagnosis: 1:TIA (transient ischemic attack); 2:Type 2 diabetes mellitus with diabetic neuropathy; 3:HTN; 4:Hyperlipidemia; 5:CAD; 6:Emphysema/COPD; 7:Mood disorder; 8:History of thyroidectomy; 9:Smoker Primary Care Physician: Frida Khan Provider Information Primary Provider: Han Olivera M.D. Advanced Independent Distributor:Taylor García PA-C The exam and treatment you received in the Emergency Department were for an urgent problem and are not intended as complete care. It is important that you follow up with a doctor, nurse practitioner, or physician?s title assistant for ongoing care. If your symptoms [...] opioids can be used to help relieve inabnkcz-wq-mvjcot pain and are often prescribed following a [...] be struggling with addiction, tell your health primary care physician and ask for guidance or call [facility]?S National Help (more content not included)... Normal [facility] Ethanolon 03-21-2024 Ethanol Lvl <10 Normal <=11 [facility] Comment on above: Performed By: #### 2 [id number] #### [facility] [address] [place] [address] Extra Gary 03-21-2024 WB Tube Collected Yes Invalid Interpretation Code [facility] Comment on above: Performed By: #### 1 [id number] #### [facility] [address] [place] [address] HEMATOLOGYOrdered By: SYSTEM SYSTEM on 03-21-2024 Basophils/100 [...] Coag (PPP) [Time] 27.5 second(s) Normal 25.1-36.5 [facility] Comment on above: Result Comment: Para [...] the same coagulation reagent and instrumentation as [facility]. Currently there are no coagulation studies available worldwide for children to 14 days, and no normal ranges. Heparin therapeutic range (represented by Anti-Factor Xa activity of 0.2 - 0.4 U/mL) corresponds to PTT of 56.6 - 109.0 sec. Performed By: #### 1 [id number] #### [facility] [address] [place] [address] INR Coag (PPP) [Relative time] 0.92 {INR} Invalid Interpretation Code [facility] Comment on above: Result Comment: INR results are specifically intended to assess patients stabilized on long-term Anticoagulation therapy suggested INR?s ?Less Intensive Anticoagulation? 2.0 ? 3.0 Conventional Range 3.0 ? 4.5 Performed By: #### 1 [id number] #### [facility] [address] [place] [address] PT Coag (PPP) [Time] 10.3 second(s) Normal 9.4-12.5 [facility] Comment on above: Result Comment: 15 [...] the same coagulation reagent and instrumentation as [facility]. Currently there are no coagulation studies available worldwide for children to 14 days, and no normal ranges. Performed By: #### 1 [id number] #### [facility] [address] [place] [address] Pre-Arrival Noteon 4 Pre-Arrival Note Pre-Arrival Note Pre-Arrival Summary Name: , Current Date: 03/21/2024 13:41:57 EDT Gender: Date of : Age: Pre-Arrival Type: EMS ETA: 03/21/2024 14:06:00 EDT Primary Care Physician: Presenting Problem: STROKE Pre-Arrival User: Christen Aleman RN Referring Source: Location: PA Completion Date/Time: 03/21/2024 13:36:00 [facility] Emergency Department Pre-Hospital Report Form Vital Signs: Pre-Hospital Report: Treatment in Route: Response to Treatment: Misc. Issues: Normal [facility] Troponin 0 Hr.on 03-21-2024 Troponin HS 3.50 pg/mL Low 10.10-27.10 [facility] Comment on above: Result Comment: The 95% CI (Confidence Interval) PPV (Positive Predictive Value) for myocardial infarction in females is 38 pg/mL, in males 51 pg/mL. The results should be used in conjunction with clinical conditions of myocardial infarction. (Access High Sensitivity Troponin I Instructions For Use, [employer], March 2018) Performed By: #### 1 [id number] #### [facility] [address] [place] [address] UA with Cult Rflxon 03-21-20 24 Bilirubin Ql (U) Negative Normal Negative [facility] Comment on above: Performed By: #### 4 [id number] #### [facility] [address] [place] [address] Clarity (U) Clear Normal Clear [facility] Comment on above: Performed By: #### 4 [id number] #### [facility] [address] [place] [address] Color (U) Light-Yellow Normal Yellow [facility] Comment on above: Result Comment: Micr oscopic readings are only performed on those samples that meet specific criteria set forth by [facility]. Performed By: #### 4 [id number] #### [facility] [address] [place] [address] Glucose Ql (U) 4+ mg/dL Abnormal Negative [facility] Comment on above: Performed By: #### 4 [id number] #### [facility] [address] [place] [address] Hemoglobin Auto test strip (U) [Mass/Vol] Negative Normal Negative [facility] Comment on above: Performed By: #### 4 [id number] #### [facility] [address] [place] [address] Ketones Auto test strip Ql (U) 2+ mg/dL Abnormal Negative [facility] Comment on above: Performed By: #### 4 [id number] #### [facility] [address] [place] [address] Leukocyte esterase Auto test strip Ql (U) Negative Normal Negative [facility] Comment on above: Performed By: #### 4 [id number] #### [facility] [address] [place] [address] Nitrite Auto test strip Ql (U) Negative Normal Negative [facility] Comment on above: Performed By: #### 4 [id number] #### [facility] [address] [place] [address] pH (U) 5.5 [pH] Invalid Interpretation Code 5.0-9.0 [facility] Comment on above: Performed By: #### 4 [id number] #### [facility] [address] [place] [address] Protein Ql (U) Negative Normal Negative [facility] Comment on above: Performed By: #### 4 [id number] #### [facility] [address] [place] [address] Specific gravity (U) [Rel density] 1.020 Invalid Interpretation Code 1.005-1.030 [facility] Comment on above: Performed By: #### 4 [id number] #### [facility] [address] [place] [address] Urobilinogen (U) [Mass/Vol] Negative Normal Negative [facility] Comment on above: Performed By: #### 4 [id number] #### [facility] [address] [place] [address] Type of Urine collection method Clean Catch Normal [facility] Comment on above: Performed By: #### 4 [id number] #### [facility] [address] [place] [address] URINALYSISOrdered By: SYSTEM SYSTEM on 03-21-2024 Bilirubin Ql (U) Negative Normal Negativemg/ d L [facility] UA Auto SS Clarity (U) Clear (03/21/24 4:27 PM) Normal Clear [facility] UA Auto SS Color (U) Light-Yellow 1 (03/21/24 4:27 PM) Normal Yellow [facility] UA Auto SS Comment on above: Interpretive Data: M icroscopic readings are only performed on those samples that meet specific criteria set forth by [facility]. Glucose Ql (U) 4+ mg/dL [...] strip Ql (U) Negative Normal Negativemg/d L [facility] UA Auto SS pH (U) 5.5 *NA* (03/21/24 4:27 PM) Invalid Interpretation Code 5.0 - 9.0 [facility] UA Auto SS Protein Ql (U) Negative Normal Negativemg/d L FT UA Auto SS Specific gravity (U) [Rel density] 1.020 *NA* (03/21/24 4:27 PM) Invalid Interpretation Code 1.005 - 1.030 [facility] UA Auto SS Urobilinogen (U) [Mass/Vol] Negative Normal Negativemg/d L [facility] UA Auto SS URINALYSISOrdered By: Logan Hooker [...] mGy = na DAP = na Normal [facility] eGFRon 03-21-2024 eGFR 99 mL/min/1.73 m2 Normal >=59 [facility] Comment on above: Order Comment: Order added by Discern Expert. Performed By: #### 1 [id number] #### [facility] [address] [place] [address] Consultation Noteon 10-29-19 Consultation Note [id number] Normal [facility] Superficial Wound Cultureon 10-08-2023 Superficial Wound [...] RESISTANT TO ALL B-LACTAM DRUGS. PERFORMED BY: [place] [id number] PATHOLOGIST GRADUATE RESEARCH ASSISTANT GERARD GARCIA M.D. [facility] Comment on above: Performed By: #### C USUP #### [facility] [address] Provider Letteron 08-17-2023 Provider Letter August 17, 2023 [address] HALE [address] [place] [id number] : 1965 Dear Cari , We have been trying to reach you with no success. It is important that you return our call regarding your medication/appointmen t upon receiving this letter. Also, at the time of your call, please provide us with your current information. ;;f Thank you for your prompt attention to this matter. Sincerely, [facility] [place] [address] [place] [address] [facility] Family Medicine Office/Clini c Noteon 05-28-2023 Family Medicine Office/Clinic Note HPI Staff Cari is a 58 year old female presenting to [facility] care Establish Care: History: Any previous diagnosis: Headache, Anxiety, HTN, HLD, Osteoarthritis, essential tremors, Type 2 DM, Colitis History of seeing any specialist: Neurologist for tremors doens't follow anymore, Dr Vitale in [place] When was your last doctors visit: Last provider: Dr Diallo Any recent labs: 01/22/23 and December 31 2022 A1c 7.2 Health Maintenance UTD: Colonoscopy: 10/2022 Colitis Mammogram: hasn't had one in a long time Pelvic/Pap: 3 years ago normal NEW: 10 Acute: Current issues/complaints: would like order for Angelina to [facility], refill hydroxyzine Menstrual cycle: pt states has [...] Thyroidectomy. M (more content not included)... Normal [facility] Comment on above: Result Comment: Elec [...] EST With: Frida Khan [facility] Invalid Interpretation Code [address] [place] [address]-\.br\ You Need to Complete the Following\.b r\ MA Mamm Screen w/CAD if perf and 3D Jace, 05/25/23, Routine, Order for Future Visit, Transport Mode: Ambulatory, Reason: Screening, No, Breast cancer screening by mammogram, pp_set_radio logy_subspec ialty, [facility]\.br\ US Pelvis Non-OB Complete, 05/25/23, Routine, Order for future visit, Transport Mode: Ambulatory, Reason: Abnormal vaginal bleeding, No, Post-menopau se bleeding [facility] CHEMISTRYOrdered By: SYSTEM SYSTEM on 01-22-2023 [...] Schaffer on 10-13-2022 Glucose [Mass/Vol] 177 mg/dL [facility] Comment on above: Random Glucose Refer ence Range is dependent on time and content of last meal. Glucose of more than 200 mg/dL in a nonstressed, ambulatory subject supports the diagnosis of Diabetes Mellitus. HCG ( test) IA.rapi d Ql (U)Ordered By: Geovanny Schaffer on 10-13-2022 HCG ( test) Ql (U) Negative [facility] No Panel InformationOrdered By: Geovanny Schaffer on 10-13-2022 Bedside Glucose Comment Glu2: cleaned meter [facility] CHEMISTRYOrdered By: SYSTEM SYSTEM on 06-03-2022 Albumin [...] rate/Area] mL/min/1.73 m2 Normal >=59mL/min/1 .73 m2 [facility] Chem S GFR/1.73 sq M.predicted among non-blacks [...] BASO # 0.1 103/ul Normal 0.0-0.1 [facility] Comment on above: Performed By: #### A 1C #### [facility] [address] [place] [address] [address] Jesus Lunsford Basophils/100 WBC (Bld) 0.6 % Normal 0.2-2.0 [facility] Comment on above: Performed By: #### A 1C #### [facility] [address] [place] [address] [address] Jesus Lunsford EO # 0.2 103/ul Normal 0.0-0.7 [facility] Comment on above: Performed By: #### A 1C #### [facility] [address] [place] [address] [address] Jesus Lunsford Eosinophils/100 WBC (Bld) 1.3 % Normal 0.9-7.0 [facility] Comment on above: Performed By: #### A 1C #### [facility] [address] [place] [address] Dr. Jesus Lunsford Erythrocyte distribution width (RBC) [Ratio] 14.5 % Normal 11.0-15.0 [facility] Comment on above: Performed By: #### A 1C #### [facility] [address] [place] [address] Dr. Jesus Lunsford Hematocrit (Bld) [Volume fraction] 36.8 % Normal 36.0-48.0 [facility] Comment on above: Performed By: #### A 1C #### [facility] [address] [place] [address] Dr. Jesus Lunsford Hemoglobin (Bld) [Mass/Vol] 12.2 g/dL Normal 12.0-16.0 [facility] Comment on above: Performed By: #### A 1C #### [facility] [address] [place] [address] Dr. Jesus Lunsford IG # 0.09 10e3/ul Critically high 0.00-0.03 [facility] Comment on above: Performed By: #### A 1C #### [facility] [address] [place] [address] [address] Jesus Lunsford IG % 0.7 % Critically high 0.0-0.5 [facility] Comment on above: Performed By: #### A 1C #### [facility] [address] [place] [address] Dr. Jesus Lunsford LYMPH # 2.9 103/ul Normal 1.2-3.8 [facility] Comment on above: Performed By: #### A 1C #### [facility] [address] [place] [address] Dr. Jesus Lunsford Lymphocytes/100 WBC (Bld) 22.4 % Normal 20.5-60.0 [facility] Comment on above: Performed By: #### A 1C #### [facility] [address] [place] [address] Dr. Jesus Lunsfrod MANUAL DIFF REQ NO Normal [facility] Comment on above: Performed By: #### A 1C #### [facility] [address] [place] [address] Dr. Jesus Lunsford MCH (RBC) [Entitic mass] 32.4 pg Normal 26.7-34.0 [facility] Comment on above: Performed By: #### A 1C #### [facility] [address] [place] [address] Dr. Jesus Lunsford MCHC (RBC) [Mass/Vol] 33.2 g/dL Normal 29.9-35.2 [facility] Comment on above: Performed By: #### A 1C #### [facility] [address] [place] [address] Dr. Jesus Lunsford MCV (RBC) [Entitic vol] 97.9 fL Normal 81.0-99.0 [facility] Comment on above: Performed By: #### A 1C #### [facility] [address] [place] [address] Dr. Jesus Lunsford MONO # 1.6 103/ul Critically high 0.3-0.8 [facility] Comment on above: Performed By: #### A 1C #### [facility] [address] [place] [address] Dr. Jesus Lunsford Monocytes/100 WBC (Bld) 12.4 % Critically high 1.7-12.0 [facility] Comment on above: Performed By: #### A 1C #### [facility] [address] [place] [address] Dr. Jesus Lunsford NEUT # 8.0 103/ul Critically high 1.4-6.5 [facility] Comment on above: Performed By: #### A 1C #### [facility] [address] [place] [address] [address] Jesus Lunsford Neutrophils/100 WBC (Bld) 62.6 % Normal 43.0-75.0 [facility] Comment on above: Performed By: #### A 1C #### [facility] [address] [place] [address] [address] Jesus Lunsford Platelet mean volume (Bld) [Entitic vol] 10.0 fL Normal 9.5-13.5 [facility] Comment on above: Performed By: #### A 1C #### [facility] [address] [place] [address] Dr. Jesus Lunsford PLT 233 103/ul Normal 150-450 [facility] Comment on above: Performed By: #### A 1C #### [facility] [address] [place] [address] Dr. Jesus Lunsford RBC 3.76 106/ul Critically low 4.20-5.40 [facility] Comment on above: Performed By: #### A 1C #### [facility] [address] [place] [address] Dr. Jesus Lunsford WBC 12.8 103/ul Critically high 4.0-11.0 [facility] [facility] Comment on above: Performed By: #### A 1C #### [facility] [address] [place] [address] Dr. Jesus Lunsford DRUG SCREEN RAPID (URINE)on 01-15-2022 AMP Negative Normal NEGATIVE [facility] Comment on above: Performed By: #### D RUGRPD #### [facility] [address] [place] [address] Dr. Jesus Lunsford BAR Negative Normal NEGATIVE [facility] Comment on above: Performed By: #### D RUGRPD #### [facility] [address] [place] [address] Dr. Jesus Lunsford BUP Negative Normal NEGATIVE [facility] Comment on above: Performed By: #### D RUGRPD #### [facility] [address] [place] [address] Dr. Jesus Lunsford BZO Positive Abnormal NEGATIVE [facility] Comment on above: Performed By: #### D RUGRPD #### [facility] [address] [place] [address] Dr. Jesus Lunsford VENU Negative Normal NEGATIVE [facility] Comment on above: Performed By: #### D RUGRPD #### [facility] [address] [place] [address] Dr. Jesus Lunsford CUT-OFFS SEE BELOW Normal [facility] Comment on above: Result Comment: AMP (Amphetamine): 500ng/mL, BAR (Barbituates): 200 ng/mL, BZO (Benzodiazepines): 150 ng/mL, BUP (Buprenorphine): 10 ng/mL, VENU (Cocaine): 150 ng/mL, mAMP (Methamphetamine): 500 ng/mL, MTD (Methadone): 200 ng/mL, OPI (Opiates): 100 ng/mL, OXY (Oxycodone): 100 ng/mL, PCP (Phencyclidine): 25 ng/mL, PPX (Propoxyphene): 300 ng/mL, THC (Cannabinoids): 50 ng/mL, TCA (Trycyclic Antidepressants): 300 ng/mL Performed By: #### D RUGRPD #### [facility] [address] [place] [address] Dr. Jesus Lunsford DRUG CUT HEADER DRUG CLASS TEST SYSTEM CUT-OFF CONCENTRATIONS ARE FOLLOWS: Normal [facility] Comment on above: Performed By: #### D RUGRPD #### [facility] [address] [place] [address] Dr. Jesus Lunsford mAMP Negative Normal NEGATIVE [facility] Comment on above: Performed By: #### D RUGRPD #### [facility] [address] [place] [address] Dr. Jesus Lunsford MTD Negative Normal NEGATIVE [facility] Comment on above: Performed By: #### D RUGRPD #### [facility] [address] [place] [address] Dr. Jesus Lunsford OPI Positive Abnormal NEGATIVE [facility] Comment on above: Performed By: #### D RUGRPD #### [facility] [address] [place] [address] Dr. Jesus Lunsford OXY Positive Abnormal NEGATIVE [facility] Comment on above: Performed By: #### D RUGRPD #### [facility] [address] [address] [address] Jesus Lunsford PCP Negative Normal NEGATIVE [facility] Comment on above: Performed By: #### D RUGRPD #### [facility] [address] [address] [address] Jesus Lunsford PPX Negative Normal NEGATIVE [facility] Comment on above: Performed By: #### D RUGRPD #### [facility] [address] [address] [address] Jesus Lunsford TCA Negative Normal NEGATIVE [facility] Comment on above: Performed By: #### D RUGRPD #### [facility] [address] [place] [address] Dr. Jesus Lunsford THC Negative Normal NEGATIVE [facility] Comment on above: Performed By: #### D RUGRPD #### [facility] [address] [place] [address] Dr. Jesus Lunsford ECHOCARDIO M/2D COMPLETEon 0 01-15-2022 ECHOCARDIO M/2D COMPLETE Patient: CARI HALE Exam Date: 01/15/2022 : 1965 Gender:F Ordering : SHAIKH Aleisha SHELBY . Admission #: [id number] Family : Order #: [id number] CLICK HERE TO VIEW EXAM ECHOCARDIOGRAM REPORT [...] Area(A4C): 16.10 cm2 Left Atrium Systolic Volume(A2C): 36134 mm3 Left Atrium Systolic Volume(A4C): 07185 mm3 Mitral Valve MV E to A [...] Siddiqi M.D. on 01/15/2022 at 14:43 Normal [facility] GLYCOHEMOGLOBIN A1Con 2021 ADA RECOMMENDATION SEE BELOW Normal [facility] Comment on above: Result Comment: ADA RECOMMENDED LIMIT 4.0 - 6.0 ADA THERAPEUTIC TARGET < 7.0 ACTION SUGGESTED > 7.0 Performed By: #### A 1C #### [facility] [address] [place] [address] Dr. Jesus Lunsford Glucose [Mass/Vol] 166 mg/dL Normal [facility] Comment on above: Performed By: #### A 1C #### [facility] [address] [place] [address] Dr. Jesus Lunsford HbA1c (Bld) [Mass fraction] 7.4 % Critically high 4.5-6.2 [facility] Comment on above: Performed By: #### A 1C #### [facility] [address] [address] [address] Jesus Lunsford LIPID PROFILEon 01-15-2022 CHOL-HDL RATIO NORM SEE BELOW Normal [facility] Comment on above: Result Comment: 3.3 - 4.4 LOW RISK 4.4 - 7.1 AVERAGE RISK 7.1 - 11.0 MODERATE RISK >11.0 HIGH RISK Performed By: #### L IPID #### [facility] [address] [address] [address] Jesus Lunsford Cholesterol [Mass/Vol] 144 mg/dL Normal <=200 [facility] Comment on above: Performed By: #### L IPID #### [facility] [address] [address] [address] Jesus Lunsford Cholesterol in HDL [Mass/Vol] 69 mg/dL Critically high 40-60 [facility] Comment on above: Performed By: #### L IPID #### [facility] [address] [address] [address] Jesus Lunsford Cholesterol in LDL [Mass/Vol] 67.6 mg/dL Normal [facility] Comment on above: Performed By: #### L IPID #### [facility] [address] [address] [address] Jesus Lunsford Cholesterol.total/Chol esterol in HDL [Mass ratio] 2.1 {ratio} Normal [facility] Comment on above: Performed By: #### L IPID #### [facility] [address] [place] [address] Dr. Jesus Lunsford HDL NORMAL > or = 60 mg/dl - LO W CARDIOVASCULAR RISK <40 mg/dl - HIGH CARDIOVASCULAR RISK Normal [facility] Comment on above: Performed By: #### L IPID #### [facility] [address] [place] [address] Dr. Jesus Lunsford LDL CALC NORMAL SEE BELOW Normal [facility] Comment on above: Result Comment: <100 mg/dl OPTIMAL 100 - 129 mg/dl NEAR OR ABOVE OPTIMAL 130 - 159 mg/dl BORDERLINE HIGH 160 - 189 mg/dl HIGH >190 mg/dl VERY HIGH Performed By: #### L IPID #### [facility] [address] [place] [address] Dr. Jesus Lunsford Triglyceride [Mass/Vol] 37 mg/dL Normal <=150 [facility] Comment on above: Performed By: #### L IPID #### [facility] [address] [address] [address] Jesus Lunsford VLDL CALC 7.4 mg/dL Normal [facility] Comment on above: Performed By: #### L IPID #### [facility] [address] [address] [address] Jesus Lunsford POINT OF CARE GLUCOSEon 12-31 Glucose [Mass/Vol] 58 mg/dL Critically low 74-106 [facility] Comment on above: Performed By: #### C VDTBH #### [facility] [address] [place] [address] Dr. Jesus Lunsford Glucose [Mass/Vol] 104 mg/dL Normal 74-106 [facility] Comment on above: Performed By: #### A 1C #### [facility] [address] [address] [address] Jesus Lunsford PROF CHEM 8 (BAS METB)on Anion gap [Moles/Vol] 11.2 mmol/L Normal [facility] Comment on above: Performed By: #### A 1C #### [facility] [address] [place] [address] Dr. Jesus Lunsford Calcium [Mass/Vol] 8.0 mg/dL Critically low 8.5-10.1 [facility] Comment on above: Performed By: #### A 1C #### [facility] [address] [place] [address] Dr. Jesus Lunsford Chloride [Moles/Vol] 99 mmol/L Normal 98-107 [facility] Comment on above: Performed By: #### A 1C #### [facility] [address] [place] [address] Dr. Jesus Lunsford CO2 [Moles/Vol] 27.5 mmol/L Normal 21.0-32.0 [facility] Comment on above: Performed By: #### A 1C #### [facility] [address] [place] [address] Dr. Jesus Lunsford Creatinine [Mass/Vol] 0.84 mg/dL Normal 0.55-1.02 [facility] Comment on above: Performed By: #### A 1C #### [facility] [address] [place] [address] Dr. Jesus Lunsford EGFR-AF DANISH >60 Normal >=60 [facility] Comment on above: Performed By: #### A 1C #### [facility] [address] [place] [address] Dr. Jesus Lunsford EGFR-NON AF DANISH >60 Normal >=60 [facility] Comment on above: Performed By: #### A 1C #### [facility] [address] [place] [address] Dr. Jesus Lunsford Glucose [Mass/Vol] 94 mg/dL Normal 74-106 [facility] Comment on above: Performed By: #### A 1C #### [facility] [address] [place] [address] Dr. Jesus Lunsford Potassium [Moles/Vol] 4.7 mmol/L Normal 3.5-5.1 [facility] Comment on above: Performed By: #### A 1C #### [facility] [address] [place] [address] Dr. Jesus Lunsford Sodium [Moles/Vol] 133 mmol/L Critically low 136-145 [facility] Comment on above: Performed By: #### A 1C #### [facility] [address] [place] [address] Dr. Jesus Lunsford Urea nitrogen [Mass/Vol] 12.0 mg/dL Normal 7.0-18.0 [facility] Comment on above: Performed By: #### A 1C #### [facility] [address] [place] [address] Dr. Jesus Lunsford Urea nitrogen/Creatinine [Mass ratio] 14.3 mg/mg Normal [facility] Comment on above: Performed By: #### A 1C #### [facility] [address] [place] [address] Dr. Jesus Lunsford BNPon 01-14-2022 Natriuretic peptide B (Bld) [Mass/Vol] 721.0 pg/mL Normal <=900.0 [facility] Comment on above: Performed By: #### H STROPN, BNP, BMP #### [facility] [address] [place] [address] Dr. Jesus Lunsford CBC AUTO DIFFon 01-14-2022 BASO # 0.1 103/ul Normal 0.0-0.1 [facility] Comment on above: Performed By: #### C BC #### [facility] [address] [address] [address] Jesus Lunsford Basophils/100 WBC (Bld) 0.6 % Normal 0.2-2.0 [facility] Comment on above: Performed By: #### C BC #### [facility] [address] [address] [address] Jesus Lunsford EO # 0.2 103/ul Normal 0.0-0.7 [facility] Comment on above: Performed By: #### C BC #### [facility] [address] [address] [address] Jesus Lunsford Eosinophils/100 WBC (Bld) 1.3 % Normal 0.9-7.0 [facility] Comment on above: Performed By: #### C BC #### [facility] [address] [place] [address] Dr. Jesus Lunsford Erythrocyte distribution width (RBC) [Ratio] 14.2 % Normal 11.0-15.0 [facility] Comment on above: Performed By: #### C BC #### [facility] [address] [place] [address] Dr. Jesus Lunsford Hematocrit (Bld) [Volume fraction] 37.8 % Normal 36.0-48.0 [facility] Comment on above: Performed By: #### C BC #### [facility] [address] [place] [address] Dr. Jesus Lunsford Hemoglobin (Bld) [Mass/Vol] 13.0 g/dL Normal 12.0-16.0 [facility] Comment on above: Performed By: #### C BC #### [facility] [address] [place] [address] Dr. Jesus Lunsford IG # 0.08 10e3/ul Critically high 0.00-0.03 [facility] Comment on above: Performed By: #### C BC #### [facility] [address] [address] [address] Jesus Lunsford IG % 0.6 % Critically high 0.0-0.5 [facility] Comment on above: Performed By: #### C BC #### [facility] [address] [address] [address] Jesus Lunsford LYMPH # 2.0 103/ul Normal 1.2-3.8 [facility] Comment on above: Performed By: #### C BC #### [facility] [address] [place] [address] Dr. Jesus Lunsford Lymphocytes/100 WBC (Bld) 16.0 % Critically low 20.5-60.0 [facility] Comment on above: Performed By: #### C BC #### [facility] [address] [place] [address] Dr. Jesus Lunsford MANUAL DIFF REQ NO Normal [facility] Comment on above: Performed By: #### C BC #### [facility] [address] [place] [address] Dr. Jesus Lunsford MCH (RBC) [Entitic mass] 32.7 pg Normal 26.7-34.0 [facility] Comment on above: Performed By: #### C BC #### [facility] [address] [place] [address] Dr. Jesus Lunsford MCHC (RBC) [Mass/Vol] 34.4 g/dL Normal 29.9-35.2 [facility] Comment on above: Performed By: #### C BC #### [facility] [address] [place] [address] Dr. Jesus Lunsford MCV (RBC) [Entitic vol] 95.2 fL Normal 81.0-99.0 [facility] Comment on above: Performed By: #### C BC #### [facility] [address] [place] [address] Dr. Jesus Lunsford MONO # 0.9 103/ul Critically high 0.3-0.8 [facility] Comment on above: Performed By: #### C BC #### [facility] [address] [place] [address] Dr. Jesus Lunsford Monocytes/100 WBC (Bld) 7.3 % Normal 1.7-12.0 [facility] Comment on above: Performed By: #### C BC #### [facility] [address] [place], [place] [id number] Dr. Jesus Lunsford NEUT # 9.3 103/ul Critically high 1.4-6.5 [facility] Comment on above: Performed By: #### C BC #### [facility] [address] [address] [address] Jesus Lunsford Neutrophils/100 WBC (Bld) 74.2 % Normal 43.0-75.0 [facility] Comment on above: Performed By: #### C BC #### [facility] [address] [address] [address] Jesus Lunsford Platelet mean volume (Bld) [Entitic vol] 9.6 fL Normal 9.5-13.5 [facility] Comment on above: Performed By: #### C BC #### [facility] [address] [place] [address] Dr. Jesus Lunsford PLT 277 103/ul Normal 150-450 [facility] Comment on above: Performed By: #### C BC #### [facility] [address] [address] [address] Jesus Lunsford WBC 12.5 103/ul Critically high 4.0-11.0 [facility] Comment on above: Performed By: #### C BC #### [facility] [address] [place] [address] HEAD WO CONon [...] JESSE FIELDS Date: 2022-01-14 17:25 Normal [facility] CTA CHEST WO W CONon 022 CTA [...] JESSE FIELDS Date: 2022-01-14 13:55 Normal [facility] Covid-19 PCR (CVDTB)on 12-31 SARS-CoV-2 (COVID-19) RNA EFRAIN+probe Ql (Unsp spec) Not detected Normal NOT DETECTED [facility] Comment on above: Result Comment: When diagnostic [...] for this test is supported by the [place] of Health and Human Service's declaration that [...] used). Performed By: #### C VDTB #### [facility] [address] [place] [address] Dr. Jesus Lunsford D-DIMERon 01-14-2022 D-DIMER 0.60 mg/L FEU Critically high <=0.[address] [facility] Comment on above: Performed By: #### C VDTBH #### [facility] [address] [place] [address] Dr. Jesus Lunsford D-DIMER COMMENTS SEE BELOW Normal [facility] Comment on above: Result Comment: Incr eases [...] hospitalization. Performed By: #### C VDTBH #### [facility] [address] [place] [address] Dr. Jesus Lunsford ETHANOL (BLD ALC)on 01-15-20 22 ALC NOTE NOTE: 80 mg/dl is th e legal limit for a blood alcohol level Normal [facility] Comment on above: Performed By: #### A 1C #### [facility] [address] [place] [address] Dr. Jesus Lunsford Ethanol [Mass/Vol] mg/dL Normal [facility] Comment on above: Performed By: #### A 1C #### [facility] [address] [place] [address] Dr. Jesus Lunsford POINT OF CARE GLUCOSEon 12-31 Glucose [Mass/Vol] 215 mg/dL Critically high 74-106 [facility] Comment on above: Performed By: #### A 1C #### [facility] [address] [address] [address] Jesus Lunsford Glucose [Mass/Vol] 51 mg/dL Critically low 74-106 [facility] Comment on above: Result Comment: Will Repeat Test Performed By: #### C VDTBH #### [facility] [address] [address] [address] Jesus Lunsford Glucose [Mass/Vol] 263 mg/dL Critically high 74-106 [facility] Comment on above: Performed By: #### C VDTBH #### [facility] [address] [place] [address] Dr. Jesus Lunsford PROF CHEM 8 (BAS METB)on Anion gap [Moles/Vol] 12.6 mmol/L Normal [facility] Comment on above: Performed By: #### H STROPN, BNP, BMP #### [facility] [address] [place] [address] Dr. Jesus Lunsford Calcium [Mass/Vol] 8.2 mg/dL Critically low 8.5-10.1 [facility] Comment on above: Performed By: #### H STROPN, BNP, BMP #### [facility] [address] [place] [address] Dr. Jesus Lunsford Chloride [Moles/Vol] 102 mmol/L Normal 98-107 [facility] Comment on above: Performed By: #### H STROPN, BNP, BMP #### [facility] [address] [place] [address] Dr. Jesus Lunsford CO2 [Moles/Vol] 25.5 mmol/L Normal 21.0-32.0 [facility] Comment on above: Performed By: #### H STROPN, BNP, BMP #### [facility] [address] [place] [address] Dr. Jesus Lunsford Creatinine [Mass/Vol] 0.71 mg/dL Normal 0.55-1.02 [facility] Comment on above: Performed By: #### H STROPN, BNP, BMP #### [facility] [address] [address] [address] Jesus Lunsford EGFR-AF DANISH >60 Normal >=60 [facility] Comment on above: Performed By: #### H STROPN, BNP, BMP #### [facility] [address] [address] [address] Jesus Lunsford EGFR-NON AF DANISH >60 Normal >=60 [facility] Comment on above: Performed By: #### H STROPN, BNP, BMP #### [facility] [address] [address] [address] Jesus Lunsford Glucose [Mass/Vol] 145 mg/dL Critically high 74-106 [facility] Comment on above: Performed By: #### H STROPN, BNP, BMP #### [facility] [address] [address] [address] Jesus Lunsford Potassium [Moles/Vol] 4.1 mmol/L Normal 3.5-5.1 [facility] Comment on above: Performed By: #### H STROPN, BNP, BMP #### [facility] [address] [address] [address] Jesus Lunsford Sodium [Moles/Vol] 136 mmol/L Normal 136-145 [facility] Comment on above: Performed By: #### H STROPN, BNP, BMP #### [facility] [address] [address] [address] Jesus Lunsford Urea nitrogen [Mass/Vol] 6.0 mg/dL Critically low 7.0-18.0 [facility] Comment on above: Performed By: #### H STROPN, BNP, BMP #### [facility] [address] [address] [address] Jesus Lunsford Urea nitrogen/Creatinine [Mass ratio] 8.5 mg/mg Normal [facility] Comment on above: Performed By: #### H STROPN, BNP, BMP #### [facility] [address] [address] [address] Jesus Lunsford TROPONIN, HIGH SENSITIVITYon 01-14-2022 HSTROP 9.4 pg/mL Normal 4.0-51.3 [facility] Comment on above: Result Comment: CUT- OFF POINTS HAVE BEEN ESTABLISHED BASED ON THE FOURTH UNIVERSAL DEFINITIONS OF MYOCARDIAL INFARCTION. THE UPPER REFERENCE LIMIT (URL) OF TROPONIN, DEFINED THE 99TH PERCENTILE OF cTnI DISTRIBUTION IN A REFERENCE POPULATION, HAS BEEN CONFIRMED THE DECISION THRESHOLD FOR NE DIAGNOSIS. Performed By: #### H ROSMERYPN #### [facility] [address] [address] [address] Jesus Lunsford HSTROP 9.0 pg/mL Normal 4.0-51.3 [facility] Comment on above: Result Comment: CUT- OFF POINTS HAVE BEEN ESTABLISHED BASED ON THE FOURTH UNIVERSAL DEFINITIONS OF MYOCARDIAL INFARCTION. THE UPPER REFERENCE LIMIT (URL) OF TROPONIN, DEFINED THE 99TH PERCENTILE OF cTnI DISTRIBUTION IN A REFERENCE POPULATION, HAS BEEN CONFIRMED THE DECISION THRESHOLD FOR NE DIAGNOSIS. Performed By: #### H ROSMERYPN #### [facility] [address] [address] [address] Jesus Lunsford HSTROP 9.3 pg/mL Normal 4.0-51.3 [facility] Comment on above: Result Comment: CUT- OFF POINTS HAVE BEEN ESTABLISHED BASED ON THE FOURTH UNIVERSAL DEFINITIONS OF MYOCARDIAL INFARCTION. THE UPPER REFERENCE LIMIT (URL) OF TROPONIN, DEFINED THE 99TH PERCENTILE OF cTnI DISTRIBUTION IN A REFERENCE POPULATION, HAS BEEN CONFIRMED THE DECISION THRESHOLD FOR NE DIAGNOSIS. Performed By: #### H ROSMERYPN, BNP, BMP #### [facility] [address] [address] [address] Jesus Lunsford XR CHEST 1 Von [...] by: SILVA ALMANZAR Date: 2022-01-14 12:13 Normal [facility] Vital Signs Date Time Vital Sign Value Performing Clinician Facility 03-22-2024 17:21-0400 [facility] Rounding [facility] 03-22-2024 17:21-0400 Promise to Return [facility] 03-22-2024 16:00-0400 [facility] 03-22-2024 16:00-0400 [facility] Return [facility] 03-22-2024 15:35-0400 Heart rate 86 /min [facility] 03-22-2024 15:35-0400 Respiratory rate 20 /min [facility] 03-22-2024 15:28-0400 Heart rate 85 /min [facility] 03-22-2024 15:28-0400 Respiratory rate 20 /min [facility] 03-22-2024 15:28-0400 SaO2% (BldA) [Mass fraction] 95 % Lee Juan [facility] 03-22-2024 15:00-0400 Hourly Rounding Lee Juan [facility] 03-22-2024 15:00-0400 Promise to Return Lee Juan [facility] 03-22-2024 12:39-0400 Heart rate 78 /min Lee Juan [facility] 03-22-2024 12:39-0400 SaO2% (BldA) [Mass fraction] 95 % Lee Juan [facility] 03-22-2024 12:39-0400 Diastolic blood pressure 68 mm[Hg] Lee Martinez [facility] 03-22-2024 12:39-0400 Mean blood pressure 80 mm[Hg] Lee Newtoner [facility] 03-22-2024 12:39-0400 Systolic blood pressure 104 mm[Hg] Lee Newtoner [facility] 03-22-2024 12:39-0400 Body temperature 98.06 [degF] Lee Martinez [facility] 03-22-2024 12:02-0400 Respiratory rate 20 /min Lee Martinez [facility] 03-22-2024 08:16-0400 SaO2% (BldA) [Mass fraction] 96 % Lee Martinez [facility] 03-22-2024 08:06-0400 Body temperature 97.88 [degF] Lee Martinez [facility] 03-22-2024 08:05-0400 Diastolic blood pressure 77 mm[Hg] Lee Martinez [facility] 03-22-2024 08:05-0400 Mean blood pressure 90 mm[Hg] Lee Martinez [facility] 03-22-2024 08:05-0400 Systolic blood pressure 117 mm[Hg] Lee Newtoner [facility] 03-22-2024 03:50-0400 Diastolic blood pressure 78 mm[Hg] Lee Newtoner [facility] 03-22-2024 03:50-0400 Systolic blood pressure 127 mm[Hg] Lee Newtoner [facility] 03-22-2024 01:59-0400 Mean blood pressure 84 mm[Hg] Lee Newtoner [facility] 03-22-2024 01:59-0400 Body temperature 98.42 [degF] Lee Hathawaycker [facility] 03-21-2024 19:59-0400 Body temperature 98.24 [degF] Lee Newtoner [facility] 03-21-2024 19:59-0400 Heart rate 99 /min Lee Newtoner [facility] 03-21-2024 19:03-0400 Mean blood pressure 102 mm[Hg] Lee Newtoner [facility] 03-21-2024 19:03-0400 Respiratory rate 15 /min Lee Newtoner [facility] 03-21-2024 17:37-0400 Mean blood pressure 95 mm[Hg] Lee Newtoner [facility] 03-21-2024 17:37-0400 Respiratory rate 16 /min Lee Newtoner [facility] 03-21-2024 16:13-0400 gluc 281 mg/dL Lee Newtoner [facility] 03-21-2024 16:00-0400 Mean blood pressure 75 mm[Hg] Lee Newtoner [facility] 03-21-2024 14:09-0400 gluc 83 mg/dL Lee Newtoner [facility] 03-21-2024 14:09-0400 gluc Lee Hathawaycker [facility] 03-21-2024 13:54-0400 Body temperature 98.42 [degF] Lee Newtoner [facility] 03-21-2024 13:54-0400 Heart rate 101 /min Lee Newtoner [facility] 03-21-2024 13:39-0400 gluc 83 mg/dL Lee Hathawaycker [facility] 12-31-2022 15:43-0400 Blood Pressure Location Panchito DIALLO [facility] 12-31-2022 15:43-0400 Diastolic blood pressure 66 mm[Hg] Panchito DIALLO [facility] 12-31-2022 15:43-0400 Heart rate 83 /min Panchito DIALLO [facility] 12-31-2022 15:43-0400 Respiratory rate 16 /min Panchito DIALLO [facility] 12-31-2022 15:43-0400 SaO2% (BldA) [Mass fraction] 96 % Panchito DIALLO [facility] 12-31-2022 15:43-0400 Systolic blood pressure 120 mm[Hg] Panchito DIALLO [facility] 12-31-2022 15:07-0400 Blood Pressure Location Panchito DIALLO [facility] 12-31-2022 15:07-0400 Body temperature 97.52 [degF] Panchito DIALLO [facility] 12-31-2022 15:07-0400 Diastolic blood pressure 66 mm[Hg] Panchito DIALLO [facility] 12-31-2022 15:07-0400 Heart rate 83 /min Panchito DIALLO [facility] 12-31-2022 15:07-0400 SaO2% (BldA) [Mass fraction] 96 % Panchito DIALLO [facility] 12-31-2022 15:07-0400 Systolic blood pressure 120 mm[Hg] Panchito DIALLO [facility] 10-13-2022 15:03-0400 Diastolic blood pressure 62 mm[Hg] DO Panchito Diallo Work Phone: [facility] 10-13-2022 15:03-0400 Heart rate 74 /min DO Panchito Diallo Work Phone: [facility] 10-13-2022 15:03-0400 Respiratory rate 16 /min DO Panchito Diallo Work Phone: [facility] 10-13-2022 15:03-0400 SaO2% (BldA) [Mass fraction] 99 % DO Panchito Diallo Work Phone: [facility] 10-13-2022 15:03-0400 Systolic blood pressure 122 mm[Hg] DO Panchito Diallo Work Phone: [facility] 10-13-2022 13:16-0400 Body height 157.48 cm DO Panchito Diallo Work Phone: [facility] 10-13-2022 13:16-0400 Body temperature 98.2 [degF] DO Panchito Diallo Work Phone: [facility] 10-13-2022 13:16-0400 Body weight 58.96 kg DO Panchito Diallo Work Phone: [facility] 05-12-2022 15:37-0400 Blood Pressure Location Panchito DIALLO [facility] 05-12-2022 15:37-0400 Body temperature 97.7 [degF] Panchito DIALLO [facility] 05-12-2022 15:37-0400 Diastolic blood pressure 80 mm[Hg] Panchito DIALLO [facility] 05-12-2022 15:37-0400 Heart rate 108 /min Panchito DIALLO [facility] 05-12-2022 15:37-0400 SaO2% (BldA) [Mass fraction] 98 % Panchito DIALLO [facility] 05-12-2022 15:37-0400 Systolic blood pressure 136 mm[Hg] Panchito DIALLO [facility] 10-29-2021 16:15-0400 Body weight 58.97 kg Geovanny Schaffer Other [employer] Other Encounters Encounter Date Encounter Type Care Provider Facility Start: 03-23-2024 End: 03-31-2024 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 Frida L José Miguel Facility:CD:[id number] Start: 03-21-2024 End: 03-22-2024 ambulatory Lee Martinez [facility] Start: 03-21-2024 Emergency department patient visit Han Leydi Jarod Facility[facility] Start: 03-21-2024 End: 03-22-2024 Observation Lee Martinez [facility] Start: 03-15-2024 End: 03-15-2024 ambulatory Frida L José Miguel Facility:[facility] Gaye almonte Start: 01-03-2024 ambulatory Panchito Monroe y:CECILIA Mancini Start: 10-08-2023 End: 10-08-2023 ambulatory Haylee Hinds Facility:[facility] Start: 09-24-2023 ambulatory Frida L José Miguel Facility: [facility] Ari Start: 09-15-2023 End: 09-15-2023 ambulatory Frida L José Miguel Facility:[facility] [place] Start: 07-28-2023 End: 07-28-2023 ambulatory Oren Jones Other [employer] Other Start: 07-28-2023 Telephone encounter Oren Davis [facility] Start: 06-09-2023 End: 06-09-2023 ambulatory Frida L José Miguel Facility:[facility] [place] [facility] Start: 05-25-2023 ambulatory Frida José Miguel Facility:[facility] [place] Start: 05-25-2023 End: 05-25-2023 ambulatory Frida L José Miguel Facility:[facility] [place] [facility] Start: 03-18-2023 End: 03-18-2023 ambulatory Oren Jones Other [employer] Other Start: 03-18-2023 Telephone encounter Oren Davis [facility] Start: 02-16-2023 End: 02-16-2023 Patient encounter procedure MILO CAMPOS [facility] Start: 01-22-2023 End: 01-22-2023 Patient encounter procedure Panchito DIALLO [facility] Start: 01-19-2023 End: 01-21-2023 Pre-admission assessment Panchito DIALLO [facility] Start: 01-14-2023 End: 01-14-2023 ambulatory Oren Jones Other [employer] Other Start: 01-14-2023 Telephone encounter Oren Davis [facility] Start: 12-31-2022 End: 12-31-2022 Patient encounter procedure Panchito DIALLO [facility] Start: 12-31-2022 End: 12-31-2022 Well adult monitoring check done Panchito DIALLO [facility] Start: 11-18-2022 End: 11-18-2022 ambulatory Oren Jones Other [employer] Other Start: 11-18-2022 Telephone encounter Oren Jones Susan [facility] Start: 10-22-2022 End: 10-22-2022 ambulatory Geovanny Schaffer Other [employer] Other Start: 10-22-2022 Telephone encounter Geovanny BENNETT [facility] Start: 10-14-2022 End: 10-14-2022 ambulatory Geovanny Schaffer Other [employer] Other Start: 10-14-2022 Telephone encounter Geovanny BENNETT [facility] Start: 10-13-2022 End: 10-13-2022 Admission to same day surgery center DO Panchito Diallo Work Phone: [facility] Work Phone: Start: 10-13-2022 End: 10-13-2022 ambulatory DO Panchito Diallo Work Phone: [facility] Work Phone: Start: 09-22-2022 End: 09-22-2022 ambulatory Geovanny Schaffer Other [employer] Other Start: 09-22-2022 Telephone encounter Geovanny BENNETT [facility] Start: 06-03-2022 End: 06-03-2022 Patient encounter procedure Panchito DIALLO [facility] Start: 05-12-2022 End: 05-12-2022 Patient encounter procedure Panchito DIALLO [facility] Start: 01-14-2022 End: 01-15-[address] NONE LISTED REQUEST Facility: Start: 11-13-2021 End: 11-13-2021 ambulatory Geovanny Schaffer Other [employer] Other Start: 11-13-2021 Telephone encounter Geovanny Schaffer FP [facility] Start: 10-29-2021 End: 10-29-2021 ambulatory Geovanny Schaffer Other [employer] Other Start: 10-29-2021 [facility] visit new patient [...] Date Care Activity Detail Author Start: 10-13-2022 [facility] Immunizations Immunization Date Immunization Notes Care Provider Hazel hansen NEGATED: Highlighted row has not occurred!09-02-2021 influenza virus vaccine, unspecified formulation Panchiot DIALLO [facility] NEGATED: Highlighted row has not occurred!09-05-2020 influenza virus vaccine, unspecified formulation Panchito DIALLO [facility] [place] Payers Date Payer Category Payer Self-pay [id number] 2020 Unknown [id number] 1965 Unknown [id number] 1965 Unknown [id number] [id number]. 1965 Unknown [id number] [id number] 1965 Unknown [id number] 2.16.840.1.464039.3.579.2.72 1965 Unknown [id number] 2.16.840.1.256152.3.579.2.72 1965 Unknown [id number] 2.16.840.1.281772.3.579.2. 1965 Unknown [id number] 2.16.840.1.204884.3.579.2.727 1965 Unknown [id number] 2.16.840.1.295079.3.579.2.72 1965 Unknown [id number] 2.16.840.1.056139.3.579.2.727 1965 Unknown [id number] 2.16.840.1.355284.3.579.2.727 1965 Unknown [id number] 2.16.840.1.151604.3.579.2.727 1965 Unknown [id number] 2.16.840.1.164510.3.579.2.727 1965 Unknown [id number] [id number] Medicare Self Pay [id number] Medicare Medicare [id number] Unknown [id number] Unknown Regular Auto/Liability [id number] Unknown [id number] [id number] Social History Date Type Detail Facility Tobacco smoking stat [facility] Unknown if ever smoked [facility] Start: 1965 Sex Assigned At Female F [facility] Sex Assigned At [employer] Other Start: 05-12-2022 End: 05-25-2023 Tobacco smoking status Heavy tobacco smoker (finding) [facility] Tobacco smoking status Never Shant[facility] Start: 10-13-2022 [facility] Medical Equipment Procedure Code Equipment Code Equipment [...] Assessment Result Facility 03-21-2024 Functional Status N/A [facility] 03-21-2024 Functional Status [facility] 12-31-2022 Functional Status N/A [facility] 05-12-2022 Functional Status N/A [facility] Clinical Notes 10-29-2021 to 03-31-2024 Note Date [...] agreement with current d/c plan. Services Consulted [facility] Hand Consult - Completed -- 03/21/24 20:27:31 EDT [...] 50,000 intl units (1.25 mg) oral capsule, 92492 International_Unit, Oral, qWeek, 3 refills Home aspirin 81 m (more content not included)... [facility] Comment on above: Result Comment: Elec tronically Signed By: Ghada CRUZ\.br\Date and Time Signed: 03/26/24 20:38 EDT\.br\Electronically Co-Signed By: Lee Martinez DO.br\Date and Time Co-Signed: 03/31/24 07:00 EDT 03-23-2024 Note Echocardiology Procedure Exam Date/Time Accession # Ordering Echo w/ Saline Bubbles 03/22/2024 09:41 EDT [id number] Ghada CRUZ CPT code [id number] Reason for Exam (Echo w/ Saline Bubbles) CVA Report [facility] [address] [place] [id number] Adult Echocardiogram Report Name: CARI HALE Study Date: 03/22/2024 08:34 AM BP: 117/77 mmHg Patient Location: [address] [place] [address] HR: 90 : 1965 Gender: Female Height: [...] by: Adeola HANKS, Oren Callahan Transcribed by: [facility] Technologist: DORENE Sahu [facility] 03-22-2024 Hospital Discharg e instructions Patient [...] for Disease Control and Prevention: cdc.gov National [employer] on Alcohol Abuse and Alcoholism: niaaa.nih.gov Alcoholics [...] the National Suicide Prevention Lifeline at or 368. This is open 24 hours a day. Text the Crisis Text Line at 994413. Summary Alcohol misuse and dependence can have [...] provider. Document Revised: 09/23/2022 Document Reviewed: 09/23/2022 [employer] Patient Education 2022 [employer] 03/22/2024 16:19:36 High Cholesterol High Cholesterol [...] your health care provider. General instructions Take dazi-dey-bkbqwzp and prescription medicines only as told by your health care provider. Keep all follow-up visits. This is important. Where to find more information [place] Heart Association: www.heart.org National Heart, Lung, and Blood [employer]: www.nhlbi.nih.gov Contact a health care provider if: [...] provider. Document Revised: 10/02/2021 Document Reviewed: 09/22/2021 [employer] Patient Education 2022 [employer]. 03/22/2024 16:19:36 Type 2 Diabetes Mellitus, Diagnosis, [...] be managed by a specialist called an rd lab technician. Type 2 diabetes may be treated by [...] meet with a certified diabetes care and dean of education? What diabetes medicines do I need, and when should I take them? What equipment will I need to manage my diabetes at home? How often do I need to check my blood glucose? Where can I find a support group for people with diabetes? What number can I call if I have questions? When is my next appointment? General instructions Take mrze-fnn-ebkkjcu and prescription medicines only as told by your health care provider. Keep all follow-up visits. This is important. Where to find more information For help and guidance and for more information about diabetes, please visit: [place] Diabetes Association (ADA): www.diabetes.org [place] Association of Diabetes Care and Education Specialists [...] provider. Document Revised: 10/13/2021 Document Reviewed: 10/13/2021 [employer] Patient Education 2022 [employer]. 03/22/2024 16:19:36 Hypertension, Adult, Uszn-wr-Vrsj Hypertension, Adult Hypertension is another name for [...] doctor. Keep all follow-up visits. Medicines Take gqpr-vuy-kbzkmsi and prescription medicines only as told by [...] provider. Document Revised: 05/07/2022 Document Reviewed: 05/07/2022 [employer] Patient Education 2022 [employer]. 03/22/2024 16:19:36 Smoking Tobacco Information, Adult Smoking [...] quit. Calling the smokefree.gov counselor helpline at 2-699-CGPUNOW ( ). Where to find more information You may find more information about quitting smoking from: Centers for Disease Control and Prevention: cdc.gov/tobacco Smokefree.gov: smokefree.gov [place] Lung Association: freedomfromsmoking.org Contact a health care [...] provider. Document Revised: 07/14/2022 Document Reviewed: 07/14/2022 [employer] Patient Education 2022 [employer]. 03/22/2024 16:19:36 Core Measures Transient Ischemic Attack (TIA) [facility]) Transient Ischemic Attack You have had a [...] factors for stroke, work with your health primary care physician to control them. Risk Factors: High Blood [...] Please call [facility] Smoking Cessation Program at [phone] ([facility]), or [phone], ext. [phone] Diabetes: Work with your healthcare professional to [...] low cholesterol diet, you can call our [place] rotary filter operator at [phone] ext [phone]. The goal for total cholesterol [...] your risk of stroke with your health primary care physician. If this is your first ischemic attack, [...] for more information on strokes, log onto www.[facility].com or www.strokeassociation.org or call the [place] Heart Association at (091) 400- 3144. Revised 08/201803/22/2024 16:19:36 Core Measures: Stroke (Cerebrovascular Accident) [facility], (Custom) Stroke (Cerebrovascular Accident) A stroke is [...] factors for stroke, work with your health primary care physician to control them. High Blood Pressure: High [...] QUIT! We can help. Please call [facility] Smoking Cessation Program at [phone] ([facility]), or [phone], ext. [phone] Diabetes: Work with your healthcare professional to [...] cholesterol diet, you can call our [place] rotary filter operator at [phone] Ext. [phone]. The goal for total cholesterol is less [...] your risk of stroke with your health primary care physician. TREATMENT TIME IS OF THE ESSENCE! Medications [...] be taken to prevent short and terminal block assembler complications, including aspiration pneumonia, blood clots in [...] for more information on strokes, log onto www.[facility].com or www.strokeassociation.org or call the [place] Heart Association at (712) 127- 7090. Revised 08/2018 Follow Up Care 03/21/2024 13:41:56 With:Jesse Carr MD, NEU Address: [place] [address] [place], [place] [address] [address]- When:2 to 4 weeks [facility] 03-22-2024 Note GetWell Learning Par ticipants Patient GetWell Understands Education Yes GetWell Education Video Getting Help When You Leave the Hospital [facility] 03-22-2024 Note GetWell Understands Education Yes GetWell Education Video After a Hospital Stay: Managing Appointments GetWell Learning Participants Patient [facility] 03-22-2024 Note GetWell Understands Education Yes GetWell Education Video Avoiding Infections in the Hospital GetWell Learning Participants Patient [facility] 03-22-2024 Note Patient Education - Text [...] factors for stroke, work with your health primary care physician to control them. Risk Factors: High Blood [...] Please call [facility] Smoking Cessation Program at [phone] ([facility]), or [phone], ext. [phone] Diabetes: Work with your healthcare professional to [...] cholesterol diet, you can call our [place] rotary filter operator at [phone] Ext [phone]. The goal for total cholesterol is less [...] your risk of stroke with your health primary care physician. If this is your first ischemic attack, [...] follow-up with yo (more content not included)... [facility] 03-22-2024 Note Progress Note-Physic anabelle Assessment/Plan [...] Pt reports recent ileac stent placement at [facility] by ? symptoms since that time. ASA/Plavix. I did call and speak to who is requesting CTA of the neck. 6. CAD (I25.10: Atherosclerotic heart disease of [place] coronary artery without angina pectoris) ASA, Plavix 7. Emphysema/COPD (J43.9: Emphysema, unspecified) Med nebs, budesonide 8. Mood disorder (F39: Unspecified mood [affective] disorder) W/anxiety and depression Bupropion, Lamictal 9. Alcohol abuse (F10.10: Alcohol abuse, uncomplicated) Pt significant other reports that pt drinks 2 bottles of wine a night. Pt confirms. [facility] protocol Monitor for s/sx of withdrawl. 10. History of thyroidectomy (E89.0: Postprocedural hypothyroidism) levothyroxine 11. Smoker (F17.210: Nicotine dependence, cigarettes, uncomplicated) Director Web on cessation Nicotine patch DVT Prophylaxis: Heparin [...] 13:45:00) Lymph Auto: 22.4 % (03/21/24 13:45:00) [place] Auto: 10.6 % (03/21/24 13:45:00) Eos Auto: 2.5 % (03/21/24 13:45:00) Basophil Auto: 0.8 % (03/21/24 13:45:00) Neutro Absolute: 6.1 E9/L (03/21/24 13:45:00) Lymph Absolute: 2.1 E9/L (03/21/24 13:45:00) [place] Absolute: 1 E9/L (03/21/24 13:45:00) Eos Absolute: [...] CO2: 24 mmol/ (more content not included)... [facility] Comment on above: Result Comment: Elec [...] Pt reports recent ileac stent placement at [facility] by ? symptoms since that time. ASA/Plavix. I did call and speak to who is requesting CTA of the neck. 6. CAD (I25.10: Atherosclerotic heart disease of [place] coronary artery without angina pectoris) ASA, Plavix [...] 11. Smoker (F17.210: Nicotine dependence, cigarettes, uncomplicated) Director Web on cessation Nicotine patch DVT Prophylaxis: Heparin [...] 6. CAD (I25.10: Atherosclerotic heart disease of [place] coronary artery without angina pectoris) 7. Emphysema/COPD [...] Ordered: Initial Hospital Care/Day High 75 Minutes [id number] 2. Type 2 diabetes mellitus with diabetic neuropathy (E11.40: Type 2 diabetes mellitus with diabetic neuropathy, unspecified) AccuChecks AC/HS Pt to use insulin pump. Ordered: Initial Hospital Care/Day High 75 Minutes [id number] 3. HTN (I10: Essential (primary) hypertension) Allow permissive HTN tonight Propranolol Ordered: Initial Hospital Care/Day High 75 Minutes 13320 4. Hyperlipidemia (E78.5: Hyperlipidemia, unspecified) Statin Lipid panel pending. Ordered: Initial Hospital Care/Day High 75 Minutes 53872 5. PAD (peripheral artery disease) (I73.9: Peripheral vascular disease, unspecified) Pt reports recent stent placement by ? symptoms since that time. ASA/Plavix. 6. CAD (I25.10: Atherosclerotic heart disease of [place] coronary artery without angina pectoris) ASA, Plavix Ordered: Initial Hospital Care/Day High 75 Minutes 88055 7. Emphysema/COPD (J43.9: Emphysema, unspecified) Med nebs, budesonide 8. Mood disorder (F39: Unspecified mood [affective] disorder) W/anxiety and depression Bupropion, Lamictal 9. Alcohol abuse (F10.10: Alcohol abuse, uncomplicated) Pt significant other reports that pt drinks 2 bottles of wine a night. Pt confirms. [facility] protocol Monitor for s/sx of withdrawl. 10. History of thyroidectomy (E89.0: Postprocedural hypothyroidism) levothyroxine 11. Smoker (F17.210: Nicotine dependence, cigarettes, uncomplicated) Director Web on cessation Nicotine patch DVT Prophylaxis: Heparin [...] Intermittent Pneumatic Compression Device Cardiac Monitoring Clinical [employer] Withdrawal Assessment Clinical [employer] Withdrawal Assessment Clinical [employer] Withdrawal Assessment Clinical [employer] Withdrawal Assessment Communication Order Physician to Nursing [...] w/CAD if perf and 3D Jace 05/25/23 [facility] 08-21-2024 NoteConsultation Note Chief Complaint weakness, stroke symptoms, since resolved Reason for Consultation TIA/CVA History of Present Illness 9-year-old woman. Drinks 2 bottles of wine daily. Had an episode yesterday in the early afternoon where she woke up in bed and felt like she could not move. She got very upset and anxious and was crying and managed to use a phone voice title assistant to call her . He inadvertently [...] and other notes but I did not hand picker on any of that. Review of Systems [...] both correctly = 0 Open and close eyes/enamel drier release hand: Obeys both correctly = 0 [...] 6. CAD (I25.10: Atherosclerotic heart disease of [place] coronary artery without angina pectoris) 7. Emphysema/COPD [...] problems related to lifes (more content not included)...[facility] HospitalComment on above:Result Comment: Electronically Signed By: Jumana Min RN\.br\Date and Time Signed: 03/22/24 07:40 EDT\.br\Electronically Co-Signed By: Joseph Woody DO\.br\Date and Time Co- Signed: 03/22/24 10:56 EDT\.br\Electronically Co-Signed By: Jumana Min RN [id number] NoteConsultation Note Chief Complaint weakness, stroke symptoms, since resolved Reason for Consultation TIA/CVA History of Present Illness 9-year-old woman. Drinks 2 bottles of wine daily. Had an episode yesterday in the early afternoon where she woke up in bed and felt like she could not move. She got very upset and anxious and was crying and managed to use a phone voice title assistant to call her . He inadvertently [...] and other notes but I did not hand picker on any of that. Review of Systems [...] both correctly = 0 Open and close eyes/enamel drier release hand: Obeys both correctly = 0 [...] 6. CAD (I25.10: Atherosclerotic heart disease of [place] coronary artery without angina pectoris) 7. Emphysema/COPD [...] problems related to lifes (more content not included)...[facility] HospitalComment on above:Result Comment: Electronically Signed By: Jumana Min RN\.br\Date and Time Signed: 03/22/24 07:40 EDT\.br\Electronically Co-Signed By: Joseph Woody DO\.br\Date and Time Co- Signed: 03/22/24 10:56 [id number] NoteHistory and Physical Chief Complaint c/o weakness [...] to blood sugar of 64. On arrival [facility] pt's blood sugar had improved to [...] 13:45:00) Lymph Auto: 22.4 % (03/21/24 13:45:00) [place] Auto: 10.6 % (03/21/24 13:45:00) Eos Auto: 2.5 % (03/21/24 13:45:00) Basophil Auto: 0.8 % (03/21/24 13:45:00) Neutro Absolute: 6.1 E9/L (03/21/24 13:45:00) Lymph Absolute: 2.1 E9/L (03/21/24 13:45:00) [place] Absolute: 1 E9/L (03/21/24 13:45:00) Eos Absolute: [...] mg/dL High (03/21/24 16:13:00) POC Device SN: [id number] (03/21/24 16:13:00) POC User ID: [id number] (03/21/24 16:13:00) POC Username: POC Username (03/21/24 16:13:00) UA Spec Desc: Clean Catch (03/21/24 16:27:00) UA Color: Light-Yellow (03/21/24 16:27:00) UA Clarity: Clear (03/21/24 16:27:00) UA Spec Grav: 1.020 (03/21/24 16:27:00) UA pH: 5.5 (03/21/24 16:27:00) UA Protein: Negat (03/21/24 16:27:00) UA Glucose: 4+ Abnorm (more content not included)...[facility] Comment on above:Result Comment: Electronically Signed By: Ghada CRUZ\.br\Date and Time Signed: 03/21/24 20:04 EDT\.br\Electronically Co- Signed By: Ghada CRUZ\.br\Date and Time Co-Signed: 03/21/24 20:05 EDT\.br\Electronically Co-Signed By: Lee Martinez DO\.br\Date and Time Co-Signed: 03/22/24 09:33 [id number] Evaluation note* Encounter Date Diagnosis Assessment Notes Treatment Notes Treatment Clinical Notes Jul, Functional 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 Lifestyle [place] your teeth every morning and night with [...] provider. Document Revised: 01/14/2022 Document Reviewed: 01/14/2022 [employer] Patient Education 2022 [employer]. 12/31/2022 16:32:26 Preventing Diabetes Mellitus Complications Preventing [...] lead to tooth loss. To prevent this: [place] your teeth twice a day. Floss at [...] health professional. Where to find more information [place] Diabetes Association: www.diabetes.org Association of Diabetes Care [...] provider. Document Revised: 09/06/2020 Document Reviewed: 09/06/2020 [employer] Patient Education 2022 [employer] 12/31/2022 16:32:25 Managing Your Hypertension Managing [...] more information National Heart, Lung, and Blood [employer]: www.nhlbi.nih.gov [place] Heart Association: www.heart.org Contact a health care [...] provider. Document Revised: 04/02/2022 Document Reviewed: 04/02/2022 [employer] Patient Education 2022 [employer]. 12/31/2022 16:32:21 Major Depressive Disorder, Adult Major [...] things, which may include: Your personality traits. [place] or conditioned behaviors or thoughts or feelings [...] your health care provider. General instructions Take ggqa-clr-whiqrpo and prescription medicines only as told by your health care provider. Eat a healthy diet and get plenty of sleep. Consider joining a support group. Your health care provider may be able to recommend one. Keep all follow-up visits as told by your health care provider. This is important. Where to find more information National [place] on Mental Illness: www.diana.org [place]. National [employer] of Mental Health: www.nimh.nih.gov Contact a health [...] department or: Call your local emergency services (451 in the [place] Call a suicide crisis helpline, such as the National Suicide Prevention Lifeline at or 476 in the [place] This is open 24 hours a day in the [place] Text the Crisis Text Line at 161557 (in the [place] Summary Major depressive disorder [...] provider. Document Revised: 02/11/2022 Document Reviewed: 06/29/2020 [employer] Patient Education 2022 [employer]. 12/31/2022 16:32:20 Hypertension, Adult Hypertension, Adult High [...] follow-up visits. This is important. Medicines Take cofj-vus-udgfmmf and prescription medicines only as told by [...] provider. Document Revised: 05/26/2022 Document Reviewed: 05/26/2022 [employer] Patient Education 2022 [employer]. 12/31/2022 16:32:19 Heart Disease Prevention Heart Disease [...] of hard liquor (44 mL). Medicines Take cjer-crl-rombqgc and prescription medicines only as told by [...] Centers for Disease Control and Prevention: www.cdc.gov/heartdisease [place] Heart Association: www.heart.org Summary Heart disease is [...] provider. Document Revised: 03/18/2022 Document Reviewed: 03/18/2022 [employer] Patient Education 2022 [employer]. 12/31/2022 16:32:17 Diabetes Mellitus and Nutrition, Adult [...] Carrots. Green beans. Tomatoes. Peppers. Onions. Cucumbers. [place] sprouts. Grains Whole grains, such as whole-wheat [...] meet with a certified diabetes care and dean of education? Do I need to meet with a dietitian? What number can I call if I have questions? When are the best times to check my blood glucose? Where to find more information: [place] Diabetes Association: diabetes.org Academy of Nutrition and Dietetics: eatright.org National [employer] of Diabetes and Digestive and Kidney Diseases: [...] provider. Document Revised: 02/19/2021 Document Reviewed: 02/19/2021 [employer] Patient Education 2022 [employer]. 12/31/2022 16:32:16 Diabetes Mellitus and Foot Care Diabetes Mellitus and Foot Care Foot care is an important part of your health, especially when you have diabetes. Diabetes may cause you to have problems because of poor blood flow (circulation) to your feet and legs, which can cause your skin to: Become thinner and sand drier. Break more easily. Heal more slowly. Peel [...] provider immediately. Where to find more information [place] Diabetes Association: www.diabetes.org Association of Diabetes Care [...] provider. Document Revised: 02/06/2021 Document Reviewed: 02/06/2021 [employer] Patient Education 2022 [employer]. 12/31/2022 16:32:15 Diabetes Mellitus and Exercise Diabetes [...] activity plan? Your health care provider or certified welding inspector can help you make a plan for [...] (heat stroke). Where to find more information [place] Diabetes Association: www.diabetes.org Summary Exercising regularly is important for overall health, especially for people who have diabetes mellitus. Exercising has many health benefits. It increases muscle strength and bone density and reduces bodyfat and stress. It also lowers and controls blood glucose. Your health care provider or certified welding inspector can help you make an activity plan [...] provider. Document Revised: 04/15/2020 Document Reviewed: 04/15/2020 [employer] Patient Education 2022 [employer]. 12/31/2022 16:32:13 DASH Eating Plan DASH Eating [...] Dairy Whole or 2% milk, cream, and kusq-jut-aqkq. Whole or full-fat cream cheese. Whole-fat or sweetened yogurt. Full-fat cheese. Nondairy creamers. Whipped toppings. Processed cheese and cheese spreads. Fats and oils Butter. Stick margarine. Lard. Shortening. Ghee. Peace fat. Tropical oils, such as coconut, palm kernel, or palm oil. Seasonings and condiments Onion salt, garlic salt, seasoned salt, table salt, and sea salt. [facility] Hospital[facility] sauce. Tartar sauce. Barbecue sauce. Teriyaki [...] more information National Heart, Lung, and Blood [employer]: www.nhlbi.nih.gov [place] Heart Association: www.heart.org Academy of Nutrition and [...] provider. Document Revised: 06/21/2020 Document Reviewed: 06/21/2020 [employer] Patient Education 2022 [employer]. [facility] [place] [facility]* Encounter Date Diagnosis Assessment Notes Treatment Notes Treatment Clinical Notes Oct, Fecal incontinence (ICD-10 - R15.9) [employer] Other 03-30-2022 Evaluation note* Encounter Date Diagnosis [...] WAS ON PREDNISONE PROCEED WITH FLEX SIG [employer] Other Evaluation + Plan note Future Appointments Appointment Date:05/27/2022 01:00:00 PM Scheduled Provider: Location:[facility] Appointment Type:FM Medicare Wellness Subsequent Appointment Date:06/11/2022 03:40:00 PM Scheduled Provider:Panchito DIALLO DO Location:[facility] Appointment Type: Open Future Scheduled Tests Laboratory* HgbA1c 05/12/22 * Lab Miscellaneous-LC 05/26/21 * Microalbumin Level Urine 05/12/22 * CBC w/ Auto Diff 05/12/22 * Comprehensive Metabolic Panel 05/12/22 * Estradiol Level 05/12/22 * Lipid Panel 05/12/22 * Progesterone Level 05/12/22 * Thyroid Stimulating Hormone 05/12/22 Radiology* MA Mamm Screen w/CAD if perf and 3D Jace 05/26/21 [facility] Evaluation + Plan note Future Appointments Appointment Date:06/11/2022 03:40:00 PM Scheduled Provider:Panchito DIALLO DO Location:[facility] Appointment Type: Open Diagnostic Tests Pending * Estradiol Level [facility]03[facility]22 [facility] Future Appointments Appointment Date:01/03/2024 02:00:00 PM Scheduled Provider: Location:[facility] Appointment Type: Medicare Wellness Subsequent Future Scheduled Tests Radiology* MA Mamm Screen w/CAD if perf and 3D Jace 12/31/22 [facility] Evaluation + Plan note Future Appointments Appointment Date:01/03/2024 02:00:00 PM Scheduled Provider: Location:[facility] Appointment Type: Medicare Wellness Subsequent Future Scheduled Tests Laboratory* CBC w/ Auto Diff 01/04/23 * Comprehensive Metabolic Panel 01/04/23 Radiology* MA Mamm Screen w/CAD if perf and 3D Jace 12/31/22 [facility] noteNo InformationNort [facility] Other Evaluation noteNo assessment information available [facility] Work Phone: History and physical note Author Geovanny Schaffer [facility] October 13, 2022 2:16pm Note Date/Time October 13, 2022 2:1 6pm [facility] [address] [place] [address] Gastroenterology H&P Signed Patient: Cari Hale MR#: [id number] : 1965 Acct:[id number] Age/Sex: 57 / F Adm Date: 3 Loc: Room: Type: [facility] Attending Dr: Geovanny Schaffer MD Copies to: [...] signed by Geovanny Schaffer MD> 10/13/22 1416 [facility] Work Phone: Hospital course Narrative No data available for this section [facility] Discharge instructions No data available for this section [facility] Discharge instructions Additional Instructions DISCHARGE INSTRUCTIONS [...] NOT operate machinery such as power tools, Invenshure mowers, Picplumwers, sewing machines, etc. for 24 hours. - [...] problems. -Follow up with PCP. -Office number [phone].[facility] Work Phone: Progress note No data available for this section [facility] [place] Assessments No Assessments Information Available Summary Purpose [...] DATE CREATED AUTHOR AUTHOR'S ORGANIZ ATION 10/17/2023 [facility] DATE CREATED AUTHOR AUTHOR'S ORGANIZ ATION 03/23/2024 [facility] DATE CREATED AUTHOR AUTHOR'S ORGANIZ ATION 06/14/2024 [facility] REASON FOR VISIT (unrecogniz ed section and [...] BE BASED ON THE PRIMARY CLINICAL RECORDS. [employer] provides no warranty or guarantee of the accuracy or completeness of information in this document.
[2024-07-19 17:52] VITALS: BP 187/101; PULSE 74; TEMP 36.7; O2SAT 99; BMI 23.4
--- NOTE | 2024-07-19 18:05 | ED_ITS ---
HPI - Dental/Oral General Chief complaint: Dental/Oral Stated complaint: TOOTHACHE Time Seen by Provider: 07/19/24 17:45 Source: patient Mode of arrival: walk-in History of Present Illness HPI Narrative: Patient is a 59-year-old female who presents to the emergency department for pain in tooth #30, she states it has been present for the last several days. She has a history of dental caries and tobacco abuse. She states she called the dentist office and was told to come to the emergency department for a shot . She has not had any fevers or drainage. No facial swelling or difficulty swallowing. Related Data Home Medications ?Medication ?Instructions ?Recorded ?Confirmed aspirin 81 mg tablet,delayed mg 07/19/24 release budesonide 3 mg mg PO 07/19/24 capsule,delayed,extended release bupropion HCl 150 mg 24 hr tablet, mg PO 07/19/24 extended release clopidogrel 75 mg tablet mg 07/19/24 ergocalciferol (vitamin D2) 1,250 07/19/24 mcg (50,000 unit) capsule estradiol 2 mg tablet mg 07/19/24 hydroxyzine HCl 25 mg tablet mg 07/19/24 insulin aspart U-100 100 unit/mL 07/19/24 subcutaneous solution (Novolog U-100 Insulin aspart) lamotrigine 100 mg tablet mg 07/19/24 levothyroxine 150 mcg tablet mcg 07/19/24 progesterone micronized 100 mg mg 07/19/24 capsule propranolol 80 mg capsule,24 mg PO 07/19/24 hr,extended release rosuvastatin 5 mg tablet mg 07/19/24 Previous Rx's ?Medication ?Instructions ?Recorded clindamycin HCl 150 mg capsule 300 mg (2 x 150 mg) PO Q6H 10 days 07/19/24 #80 caps hydrocodone 5 mg-acetaminophen 325 1 tab PO Q6H PRN pain 3 days #12 07/19/24 mg tablet tabs Allergies Allergy/AdvReac Type Severity Reaction Status Date / Time atorvastatin (From Lipitor) Allergy Unknown Verified 07/19/24 17:52 Penicillins Allergy Unknown Verified 07/19/24 17:52 Review of Systems ROS Constitutional Denies: fever or chills Ears, nose, mouth, and throat Reports: mouth pain; Denies: throat pain or swelling of lips/tongue Cardiovascular Denies: chest pain Respiratory Denies: shortness of breath or cough Gastrointestinal Denies: nausea or vomiting Integumentary/Breast Denies: rash Neurological Denies: numbness in extremities or weakness in extremities Hematologic/Lymphatic Denies: easy bruising or easy bleeding [facility] Social History Little interest or pleasure in doing things: not at all Feeling down, depressed, or hopeless: not at all Exam Narrative Exam Narrative: Gen.: Awake, alert, in no distress Head: Normocephalic, atraumatic ENT: Moist mucous membranes, multiple dental caries, tooth #30 with erosion noted. No redness or swelling under the tongue. No trismus or drooling. Uvula midline. Respiratory: No respiratory distress Extremities: Moves extremities equally Psych: Normal mood and affect Neuro: No focal neuro deficit Skin: Warm, dry, intact Constitutional Vital Signs, click to edit/add: Last Vital Signs Temp 98.1 F 07/19/24 17:52 Pulse 74 07/19/24 17:52 Resp 16 07/19/24 17:52 BP 152/94 H 07/19/24 18:23 Pulse Ox 99 07/19/24 17:52 O2 Del Method Room Air 07/19/24 17:52 Course Vital Signs Vital signs: Vital Signs Temperature 98.1 F 07/19/24 17:52 Pulse Rate 74 07/19/24 17:52 Respiratory Rate 16 07/19/24 17:52 Blood Pressure 187/101 H 07/19/24 17:52 Pulse Oximetry 99 07/19/24 17:52 Oxygen Delivery Method Room Air 07/19/24 17:52 Temperature 98.1 F 07/19/24 17:52 Pulse Rate 74 07/19/24 17:52 Respiratory Rate 16 07/19/24 17:52 Blood Pressure 152/94 H 07/19/24 18:23 Pulse Oximetry 99 07/19/24 17:52 Oxygen Delivery Method Room Air 07/19/24 17:52 MDM - Dental/Oral MDM Narrative Medical decision making narrative: Patient treated with pain medication, antibiotics and topical analgesia. Follow-up dentist and return to the emergency department if symptoms change or worsen SUPERVISED APC VISIT, PHYSICIAN ATTESTATION: Based on the medical record the care appears appropriate. ? Medical Records Attestation: I reviewed the patient's medical records. Discharge Plan Discharge Chief Complaint: Dental/Oral Clinical Impression: Toothache, Dental caries Patient Disposition: Home, Self-Care Time of Disposition Decision: 18:02 Condition: Good Prescriptions / Home Meds: New hydrocodone-acetaminophen 5-325 mg tablet 1 tab PO Q6H PRN (Reason: pain) 3 Days Qty: 12 0RF Rx Instructions: K08.89 clindamycin HCl 150 mg capsule 300 mg PO Q6H 10 Days Qty: 80 0RF No Action clopidogrel 75 mg tablet aspirin 81 mg tablet,delayed release (DR/EC) insulin aspart U-100 [Novolog U-100 Insulin aspart] 100 unit/mL solution propranolol 80 mg capsule,extended release 24 hr PO levothyroxine 150 mcg tablet estradiol 2 mg tablet hydroxyzine HCl 25 mg tablet ergocalciferol (vitamin D2) 1,250 mcg (50,000 unit) capsule budesonide 3 mg capsule,delayed,extend.release PO lamotrigine 100 mg tablet progesterone micronized 100 mg capsule rosuvastatin 5 mg tablet bupropion HCl 150 mg tablet extended release 24 hr PO Print Language: Lao Instructions: Toothache (ED) Additional Instructions: Follow up with your dentist Referrals: Physician,Non-Staff, MD [Primary Care Provider] - 1 week Discharge Date/Time: 07/19/24 18:27
[2024-07-19] MEDS: BENZOCAINE 30 ML, lidocaine HCL 15 ML MM (18:15)
[2024-07-19] MEDS: HYDROCODONE/ACET 5-325 MG TABLET 1 TAB PO (18:15)
[2024-07-19] MEDS: KETOROLAC TROMETHAMINE 30 MG/ML VIAL IM (18:15)
[2024-07-19 18:23] VITALS: BP 152/94
== END 2024-07-19 18:27 | disposition home or self-care (01) ==
PROVIDERS: Emergency Provider Emergency Medicine
DX: K02.9 Dental caries, unspecified (principal); K08.89 Other specified disorders of teeth and supporting structures; Z72.0 Tobacco use
CPT/HCPCS: 96372; 99284; J1885

== ENCOUNTER 2024-09-26 16:58 | Outpatient (OUT) | payer OTHER, SELFPAY ==
--- NOTE | 2024-09-26 17:02 | US_ITS ---
[place] [id number] Patient Name: CARI HALE MRN: [id number] date: 1965 Sex: F Assigned Patient Location: [place] Current Patient Location: [place] Accession/Order Number: [id number] Exam Date: 09/26/2024 23:06 Report Date: 09/26/2024 23:09 At the request of: ELEANOR DUVAL MD Procedure: US aorta Aortic ultrasound Reason for exam: Aortic stenosis. Comparison: none Technique: Grayscale, spectral and color Doppler images of the abdominal aorta were obtained. Findings: Visualized portions of the abdominal aorta appears normal in caliber without evidence of aneurysm.Maximum diameter of the aorta is 2.8 cm. There is associated atherosclerotic disease. Visualized portions of the common iliac arteries also appear normal in caliber. US/US aorta Impression: No ultrasound evidence of abdominal aortic aneurysm. Impression dictated by: Ozzy Mondragon Jr., DKamarOKamar09/26/2024 11:09 PM Dictation Location: [facility] Electronically authenticated by: [id number] Date: 09/26/2024 23:09
--- OUTSIDE RECORDS SUMMARY | 2024-09-26 17:09 | XMS_ITS | CCD ---
Author Organization [facility] Care Team Providers Care Stars Coordinator Name Role Phone REQUEST, DR NONE LISTED Primary Care UnavailSHAIKH Leydi Mirza Admitting Unavailable SHAIKH Leydi SHELBY Attending Unavailable DR JESSE FIELDS Consulting Unavailable CHRISTIANA, DR BELLAMY Consulting Unavailable SHAIKH Leydi SHELBY Consulting Unavailable SILVA ALMANZAR Consulting Unavailable Geovanny Schaffer Unavailable Renate DIALLO Primary Care Physician [phone] DO Renate Diallo Primary Care Provider MD Geovanny Schaffer Attending Provider Oren Jones Unavailable Haylee Hinds Admitting Unavailable Haylee Hinds Attending Unavailable Renate Diallo Primary Care Unavailable Flora Escalera Primary Care Physician Flora Escalera Attending Unavailable José Miguel, Flora Diaz Attending Unavailable Flora Escalera Attending Unavailable José MiguelFlora cedillo Attending Unavailable José MiguelFlora cedillo Attending Unavailable Renate DIALLO Attending Unavailable Han Olivera Attending Unavailable Lee Martinez Attending Unavailable Jesse Carr Consulting Unavailable Lee Martinez Admitting Unavailable Jesse Carr Consulting Unavailable Jesse Carr Consulting Unavailable Jesse Carr Consulting Unavailable Jesse Carr Consulting Unavailable Jesse Carr Consulting Unavailable Jesse Carr Consulting Unavailable Jesse Carr Consulting Unavailable Jesse Carr Consulting MD Jesse Duncan Consulting Unavailable Oren Mir Consulting UnavailMD Oren Steward Consulting Unava ilOren Leavitt Consulting UnavailLee Mcgraw Attending Unavailable MD Oren Mir Consulting Lee Clement Admitting Unavailable Jesse Carr Consulting Unavailable CLINT Escalera Admitting Unavailable Renate Diallo DO Primary Care Provider RENATE DIALLO Referring Unavailable RENATE DIALLO Primary Care Unavailable Unavailable Primary Care Provider Unavailyakelin Escalera SALESPERSON WOMEN'S DRESSES-Flora NOLAN Primary Care Provider Unavailable Unavailable Unavailable Allergies Allergy Classification Reported Allergen(s) Allergy Type Date of Onset Reaction(s) Facility (7 sources) Dextroamphetamine ; Translations: [Lipitor] Drug Allergy 08-11-19 [facility] Repository (16 sources) Penicillins; Translations: [penicillins] Drug allergy (disorder) 08-11-19 Swelling of Lip/Tongue/Thr oat [facility] Repository (20 sources) atorvastatin; Translations: [atorvastatin] Drug Allergy 11-11-19 Rash, Other (See Comments), Nausea [facility] (20 sources) Penicillin G Drug Allergy 01-13-20 Rash, Shortness Of Breath [facility] Other (15 sources) Acetaminophen / HYDROcodone; Translations: [acetaminophen-hy drocodone] Drug Allergy 02-10-20 [facility] (20 sources) Pravastatin; Translations: [pravastatin] Drug Allergy 02-10-20 Other (See Comments) [facility] (1 source) atorvastatin Drug Allergy 12-17-19 [facility] Repository (1 source) Penicillin Drug Allergy 12-17-19 [facility] Repository (1 source) Penicillins Drug allergy (disorder) 10-14-19 [facility] Repository (1 source) atorvastatin Drug Allergy 11-11-19 Nausea Only, Other (See Comments), Rash [facility] (8 sources) Penicillins Propensity to adverse reactions to drug 05-31-20 02 Other (See Comments), Rash, Shortness Of Breath, Swelling [facility] Medications Current Medications Medication Drug Class(es) Dates Sig (Normalized) Sig (Original) amitriptyline hydrochloride 10 mg oral tablet (2 sources) Tricyclic Antidepressant Start: 12-09-2020 take 1 tablet by mouth once daily at bedtime amitriptyline 10 mg Tab 10 mg = 1 tab(s), Oral, Once a day (at bedtime), # 90 tab(s), Refills(s) 3, Pharmacy: [facility]/pharmacy #[id number], 160, cm, 12/09/20 13:39:00 EDT, Height/Length Dosing, 62.2, kg, 12/09/20 13:39:00 EDT, Weight Dosing Start Date: 12/09/20 Status: Ordered aspirin 81 mg delayed release oral tablet (20 sources) Platelet Aggregation Inhibitor, Nonsteroidal Anti-inflammatory Drug Start: 12-06-2023 End: 03-29-2024 take 1 tablet by mouth in the morning aspirin 81 mg TAKE 1 TABLET (81 MG TOTAL) BY MOUTH IN THE MORNING 90 tablet 1 03/29/2024 Active Aspirin Active balsalazide disodium 750 mg oral capsule (4 sources) Aminosalicylate take 2 capsules by mouth twice daily Balsalazide Disodium 750 MG TAKE 2 CAPSULES BY MOUTH TWICE A DAY for 30 Active budesonide 3 mg delayed release oral capsule (19 sources) Corticosteroid Start: 05-17-2024 take 1 capsule by mouth once daily budesonide (ENTOCORT EC) 3 MG delayed release capsule Take 3 capsules by mouth every morning 270 capsule 3 05/17/2024 Active Start: 07-28-2023 take 1 capsule by mo uth three times daily Budesonide 3 MG 1 [...] qAM, # 90 cap(s), Refills(s) 2, Pharmacy: [facility]/pharmacy #[id number], 160, cm, 09/05/20 14:51:00 EST, Height/Length Dosing, 60.4, kg, 09/05/20 14:51:00 EST, Weight Dosing Start Date: 09/30/20 Status: Ordered take 1 capsule by mo [facility] every twenty-four hours in the morning budesonide EC (ENTOCORT EC) 3 mg 24 hr capsule Take 3 capsules (9 mg total) by mouth every morning. ULCERATIVE COLITIS [facility] budesonide EC (ENTOCORT EC) 3 mg 24 hr capsule Take 2 capsules (6 mg total) by mouth every morning. Active 24 hr buPROPion hydrochloride 150 mg extended release oral tablet (16 sources) Aminoketone Start: 05-17-2024 take 1 tablet by mouth at bedtime buPROPion (WELLBUTRIN XL) 150 MG extended release tablet Take 1 tablet by mouth in the morning and at bedtime 180 tablet 3 05/17/2024 Active Start: 03-21-2024 [facility] buPROPion 150 mg/24 hours XL Tab 150 mg = 1 tab(s), Oral, Daily, Refills(s) 0 Start Date: 03/21/24 Status: Ordered Start: 01-13-2024 End: 01-13-2024 take 1 tablet by mouth every twenty-four hours in the morning buPROPion XL (WELLBUTRIN XL) 150 mg 24 hr tablet Take 1 tablet (150 mg total) by mouth in the morning. 30 tablet 6 01/13/2024 Active carbidopa 10 mg / levodopa 100 mg oral tablet (2 sources) Aromatic Amino Acid Decarboxylation Inhibitor, Aromatic Amino Acid Start: 09-24-2020 Sinemet 10 mg-100 mg Tab 1 tab(s), Oral, BID, 60 tab(s), Refill(s) 5, [facility]/pharmacy #[id number], 160, cm, 09/05/20 14:51:00 EST, Height/Length Dosing, 60.4, kg, 09/05/20 14:51:00 EST, Weight Dosing Start Date: 09/24/20 Status: Ordered cholecalciferol 1.25 mg oral tablet (3 sources) Vitamin D Start: 05-17-2024 take 1 tablet by mouth every week Cholecalciferol 1.25 MG (63128 UT) TABS Take 50,000 Units by mouth once a week 12 tablet 4 05/17/2024 Active take 1 tablet by mouth every wee k cholecalciferol, vitamin D3, 50,000 units tablet Take 1 tablet (50,000 Units total) by mouth once a week. Active citalopram 10 mg oral tablet (11 sources) Serotonin Reuptake Inhibitor Start: 10-13-2022 take 10 mg by mouth once daily Citalopram Active 10 MG PO Daily October 13, 2022 12:00am Start: 05-12-2022 take 3 tablets by mo [facility] once daily, then take 2 tablets by [...] week., # 74 tab(s), Refills(s) 0, Pharmacy: [facility]/pharmacy #[id number], 158, cm, 05/12/22 15:40:00 EDT, Height/Length Dosing, 59.8, k... Start Date: 05/12/22 Status: Ordered Start: 02-05-2022 take 1 tablet by [facility] once daily CeleXA 40 mg Tab 40 mg = 1 tab(s), Oral, Daily, # 90 tab(s), Refills(s) 1, Pharmacy: [facility]/pharmacy #[id number], 158, cm, 09/02/21 14:45:00 EST, Height/Length Dosing, 60, kg, 09/02/21 14:45:00 EST, Weight Dosing Start Date: 02/05/22 Status: Ordered Citalopram Childress bromide Active clopidogrel 75 mg oral tablet (16 sources) [id number] Platelet Inhibitor Start: 05-17-2024 take 1 tablet by mouth once daily clopidogrel (PLAVIX) 75 MG tablet Take 1 tablet by mouth daily 90 tablet 3 05/17/2024 Active Start: 01-13-2024 End: 01-13-2024 take 1 tablet by mouth once daily [...] Active dicyclomine hydrochloride 20 mg oral tablet (5 sources) Anticholinergic dicyclomine (BENTYL) 20 MG tablet Active ergocalciferol 1.25 mg oral capsule (15 sources) Provitamin D2 Compound Start: 05-17-2024 take 1 capsule by mouth every week vitamin D (ERGOCALCIFEROL ) 1.25 MG (32210 UT) CAPS capsule Take 1 capsule by mouth once a week 12 capsule 4 05/17/2024 Active Start: 12-09-2023 take 1 capsule by mo uth every week ergocalciferol (DRISDOL) 1,250 mcg (50,000 unit) capsule Take 1 capsule (50,000 Units total) by mouth once a week. 12/09/2023 Active Start: 10-13-2022 take 50 ug by mouth every week Ergocalciferol (Vitamin D2) Active 50 MCG PO every week October 13, 2022 12:00am escitalopram 10 mg oral tablet (11 sources) Serotonin Reuptake Inhibitor Start: 12-31-2022 End: 02-14-2024 take 1 tablet by mouth once daily escitalopram 10 mg Tab 10 mg = 1 tab(s), Oral, Daily, # 90 tab(s), Refills(s) 0, Pharmacy: [facility]/pharmacy #[id number], 158, cm, 12/31/22 15:13:00 EDT, Height/Length Dosing, 57.9, kg, 12/31/22 15:13:00 EDT, Weight Dosing Start Date: 12/31/22 Status: Ordered estradiol 2 mg oral tablet (20 sources) Estrogen Start: 05-17-2024 take 1 tablet by mouth once daily estradiol (ESTRACE) 2 MG tablet Take 1 tablet by mouth nightly 90 tablet 3 05/17/2024 Active Start: 01-09-2022 End: 02-14-2024 take 1 tablet by mouth at bedtime estradiol 2 mg Tab 2 mg = 1 tab(s), Oral, Bedtime, # 90 tab(s), Refills(s) 3, Pharmacy: [facility]/pharmacy #[id number], 158, cm, 05/25/23 15:27:00 EDT, Height/Length Dosing, 57.3, kg, 05/25/23 15:27:00 EDT, Weight Dosing Start Date: 12/07/23 Status: Ordered Fish Oils (4 sources) gabapentin 300 mg oral capsule (11 sources) Anti-epileptic Agent Start: 12-08-2021 take 1 capsule by mouth three times daily gabapentin 300 mg Cap 300 mg = 1 cap(s), Oral, TID, M54.106, # 270 cap(s), Refills(s) 1, [id number] 158, cm, 09/02/21 14:45:00 EST, Height/Length Dosing, 60, kg, 09/02/21 14:45:00 EST, Weight Dosing Start Date: 12/08/21 Status: Ordered hydrOXYzine hydrochloride 25 mg oral tablet (13 sources) Antihistamine Start: 05-17-2024 take 1 tablet by mouth every six hours as needed for anxiety hydrOXYzine HCl (ATARAX) 25 MG tablet Take 1 tablet by mouth every 6 hours as needed for Anxiety 120 tablet 5 05/17/2024 Active Start: 12-31-2022 take 1 tablet by luke four times daily as needed for anxiety hydrOXYzine hydrochloride 25 mg Tab 25 mg = 1 tab(s), Oral, QID, PRN for anxiety, # 40 tab(s), Refills(s) 3, [id number] 158, cm, 05/25/23 15:27:00 EDT, Height/Length Dosing, 57.3, kg, 05/25/23 15:27:00 EDT, Weight Dosing Start Date: 02/04/24 Status: Ordered hyoscyamine sulfate 0.125 mg oral tablet (13 sources) Start: 01-29-2023 End: 02-28-2023 hyoscyamine 0.125 mg oral Ta b 0.125 mg = 1 tab(s), Oral, QID, TAKE 1 TABLET BY MOUTH EVERY 4 HOURS NEEDED FOR 30 DAYS, X 30 day(s), # 120 tab(s), Refills(s) 0, [id number] 158, cm, 12/31/22 15:13:00 EDT, Height/Length [...] times a day for 30 days Active ibuprofen 800 mg oral tablet (1 source) Nonsteroidal Anti-inflammatory Drug Start: 08-07-2024 take 1 tablet by mouth twice daily as needed for pain ibuprofen (ADVIL;MOTRIN) 800 MG tablet Take 1 tablet by mouth 2 times daily as needed for Pain 60 tablet 08/07/2024 Active Insulin Aspart U-100 (Novolog U-100 Insulin Aspart) 100 unit/mL solution (1 source) Start: 10-13-2022 inject 19 [IU] by subcutaneous injection once daily Insulin Aspart U-100 (Novolog U-100 Insulin Aspart) 100 unit/mL solution Active 19 UNIT SUBCUT Daily October 13, 2022 12:00am sliding scale insulin aspart, human 100 unt/ml injectable solution (20 sources) Insulin Analog Start: 06-07-2024 NOVOLOG 100 UNIT/ML injection vial Indications: Type 1 diabetes mellitus without complication (HCC) Use as directed with insulin pump. Max daily dose 90 units. 10 mL 3 06/07/2024 Active Start: 12-01-2023 NovoLOG 100 un its/mL injectable solution See Instructions, 35 units daily per pump. Dx E11.01, # 10 mL, Refills(s) 5, Pharmacy: [facility]/pharmacy #[id number], 158, cm, 05/25/23 15:27:00 EDT, Height/Length Dosing, 57.3, kg, 05/25/23 15:27:00 EDT, Weight Dosing Start Date: 12/01/23 Status: Ordered Start: 02-08-2023 NovoLOG 100 un its/mL injectable solution See Instructions, 35 units daily per pump. Dx E11.01, # 10 mL, Refills(s) 5, [id number], 158, cm, 12/31/22 15:13:00 EDT, Height/Length Dosing, 57.9, kg, 12/31/22 15:13:00 EDT, Weight Dosing Start Date: 02/08/23 Status: Ordered Start: 07-23-2022 NovoLOG 100 un its/mL injectable solution See Instructions, 35 units daily per pump. Dx E11.01, # 10 mL, Refills(s) 5, Pharmacy: [facility]/pharmacy #[id number], 158, cm, 06/11/22 15:39:00 EST, Height/Length Dosing, 61.4, kg, 06/11/22 15:39:00 EST, Weight Dosing Start Date: 07/23/22 Status: Ordered Start: 10-24-2021 NovoLOG 100 un its/mL injectable solution See Instructions, 35 units daily per pump. Dx E11.01, # 10 mL, Refills(s) 5, Pharmacy: [facility]/pharmacy #[id number], 158, cm, 09/02/21 14:45:00 EST, Height/Length Dosing, 60, kg, 09/02/21 14:45:00 EST, Weight Dosing Start Date: 10/24/21 Status: Ordered insulin aspart S UBCUTANEOUS PUMP (NovoLOG) 100 UNIT/ML patient supplied pump Inject 19 Units under the skin continuously. Patient to self-manage pump according to the following parameters: 19 units in 12 hours and then adds sliding scale with meals Active NovoLOG Active lamoTRIgine 150 mg oral tablet (18 sources) Mood Stabilizer, Anti-epileptic Agent Start: 06-27-2024 take 1 tablet by mouth once daily lamoTRIgine (LAMICTAL) 150 MG tablet Indications: Mild major depression (HCC) Take 1 tablet by mouth daily 90 tablet 1 06/27/2024 Active Start: 03-21-2024 take 1 tablet by luke th once daily lamotrigine 100 mg Tab 100 mg = 1 tab(s), Oral, Daily, Refills(s) 0 Start Date: 03/21/24 Status: Ordered Start: 02-01-2024 take 1 tablet by luke once daily, then take 2 tablets by mouth once daily, then take 3 tablets by mouth once daily, then take 4 tablets by mouth once daily lamoTRIgine (LaMICtal) 25 mg tablet TAKE 1 TAB BY MOUTH DAILY X2 WKS, 2 TABS DAILY X2 WKS, 3 TABS DAILY X2 WKS, 4 TABS DAILY X2 WKS 02/01/2024 Active Start: 05-12-2022 take 3 tablets by mo [facility] once daily lamotrigine 50 mg oral tablet, extended release See Instructions, 3 tab(s) Oral Daily x 2 week, then 2 tabs x 2 week then 1 tab x 2 week. Then will start the 25 mg, # 74 tab(s), Refills(s) 0, Pharmacy: [facility]/pharmacy #[id number], 158, cm, 05/12/22 15:40:00 EDT, Height/Length Dosing, 59.8, kg, 05/12/22 15:... Start Date: 05/12/22 Status: Ordered Start: 02-05-2022 take 1 tablet by [facility] once daily lamotrigine 200 mg Tab 200 mg = 1 tab(s), Oral, Daily, # 90 tab(s), Refills(s) 1, [id number], 158, cm, 09/02/21 14:45:00 EST, Height/Length Dosing, 60, kg, 09/02/21 14:45:00 EST, Weight Dosing Start Date: 02/05/22 Status: Ordered lamoTRIgine Acti ve levothyroxine sodium 0.15 mg oral tablet (20 sources) l-Thyroxine Start: 05-17-2024 take 1 tablet by mouth once daily levothyroxine (SYNTHROID) 150 MCG tablet Take 1 tablet by mouth Daily 90 tablet 3 05/17/2024 Active Start: 02-28-2024 take 1 tablet by luke once daily levothyroxine 150 mcg (0.15 mg) Tab See Instructions, TAKE 1 TABLET BY MOUTH EVERY DAY, # 90 tab(s), Refills(s) 1, Pharmacy: [facility] STORE [id number], 158, cm, 05/25/23 15:27:00 EDT, Height/Length Dosing, 57.3, kg, 05/25/23 15:27:00 EDT, Weight Dosing Start Date: 02/28/24 Status: Ordered Start: 10-13-2022 take 150 ug by mouth once daily Levothyroxine Active 150 MCG PO Daily October 13, 2022 12:00am Start: 08-13-2022 take 1 tablet by luke th once daily Synthroid 150 mcg (0.15 mg) Tab 0.15 mg = 1 tab(s), Oral, Daily, # 90 tab(s), Refills(s) 1, Pharmacy: [facility]/pharmacy #[id number], 158, cm, 06/11/22 15:39:00 EST, Height/Length Dosing, 61.4, kg, 06/11/22 15:39:00 EST, Weight Dosing Start Date: 08/13/22 Status: Ordered Start: 02-05-2022 take 1 tablet by luke th once daily Synthroid 150 mcg (0.15 mg) Tab 0.15 mg = 1 tab(s), Oral, Daily, # 90 tab(s), Refills(s) 1, Pharmacy: [facility]/pharmacy #[id number], 158, cm, 09/02/21 14:45:00 EST, Height/Length Dosing, 60, kg, 09/02/21 14:45:00 EST, Weight Dosing Start Date: 02/05/22 Status: Ordered take 1 tablet by luke th in the morning levothyroxine (SYNTHROID, LEVOTHROID) 100 MCG tablet Indications: hypothyroidism Take 1 tablet (100 mcg total) by mouth in the morning. Indications: a condition with low thyroid hormone levels. Active Levothyroxine So dium Active LORazepam 0.5 mg oral tablet (1 source) Benzodiazepine Start: 05-12-2022 End: 05-26-2022 take 1 tablet by mouth once daily as needed for anxiety Ativan 0.5 mg Tab 0.5 mg = 1 tab(s), Oral, Daily, PRN for anxiety, X 14 day(s), # 14 tab(s), Refills(s) 0, Pharmacy: [facility]/pharmacy #[id number], 158, cm, 05/12/22 15:40:00 EDT, Height/Length Dosing, 59.8, kg, 05/12/22 15:40:00 EDT, Weight Dosing Start Date: 05/12/22 Stop Date: 05/26/22 Status: Ordered Medtronic Insulin Pump 770G (8 sources) Start: 02-13-2021 Medtronic Insulin Pump 770G Medtronic Insulin Pump 770G, See Instructions, 1 EA, 0, as directed, Supply Start Date: 02/13/21 Status: Ordered Nicotine (5 sources) Cholinergic Nicotinic Agonist Start: 01-13-2024 End: 01-13-2024 apply 14 mg transdermal route once daily nicotine 21-14-7 mg/24 hr patch, TD daily, sequential Place 14 mg on the skin once for 1 dose. 30 each 3 01/13/2024 01/13/2024 Active Start: 01-13-2024 End: 01-13-2024 apply 14 mg transdermal route once daily nicotine 21-14-7 mg/24 hr patch, TD daily, sequential Place 14 mg on the skin once for 1 dose. 30 each 3 01/13/2024 01/13/2024 Discontinued (Reorder) ONETOUCH DELICA PLUS 33G LANCT (2 sources) [...] Sep, Active progesterone 100 mg oral capsule (20 sources) Progesterone Start: 05-17-2024 take 1 capsule by mouth once daily progesterone (PROMETRIUM) 100 MG CAPS capsule Take 1 capsule by mouth nightly 90 capsule 3 05/17/2024 Active Start: 01-16-2022 take 1 capsule by [facility] once daily at bedtime progesterone 100 mg oral capsule 100 mg = 1 cap(s), Oral, Once a day (at bedtime), # 90 cap(s), Refills(s) 3, Pharmacy: [facility]/pharmacy #[id number], 158, cm, 05/25/23 15:27:00 EDT, Height/Length Dosing, 57.3, kg, 05/25/23 15:27:00 EDT, Weight Dosing Start Date: 01/03/24 Status: Ordered Progesterone Act mralo 24 hr propranolol hydrochloride 80 mg extended release oral capsule (20 sources) beta-Adrenergic Geoffrey Start: 06-27-2024 take 1 capsule by mouth once daily propranolol (INDERAL LA) 80 MG extended release capsule Indications: Tremor Take 1 capsule by mouth daily 30 capsule 3 06/27/2024 Active Start: 05-12-2022 take 1 tablet by luke th twice daily propranolol 20 mg Tab 20 mg = 1 tab(s), Oral, BID, # 180 tab(s), Refills(s) 3, Pharmacy: [facility]/pharmacy #[id number], 158, cm, 05/25/23 15:27:00 EDT, Height/Length Dosing, 57.3, kg, 05/25/23 15:27:00 EDT, Weight Dosing Start Date: 05/26/23 Status: Ordered rosuvastatin calcium 5 mg oral tablet (20 sources) HMG-CoA Reductase Inhibitor Start: 05-17-2024 take 1 tablet by mouth once daily rosuvastatin (CRESTOR) 5 MG tablet Take 1 tablet by mouth daily 90 tablet 3 05/17/2024 Active Start: 07-31-2022 End: 03-16-2024 take 1 tablet by mouth in the morning rosuvastatin (CRESTOR) 5 mg tablet Indications: PVD (peripheral vascular disease) ([facility]) , 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 30 tablet 02/24/2024 03/16/2024 Discontinued (Duplicate Listing) sertraline 50 mg oral tablet (3 sources) Serotonin Reuptake Inhibitor Start: 01-03-2023 take 1 tablet by mouth once daily Zoloft 50 mg Tab 50 mg = 1 tab(s), Oral, Daily, # 90 tab(s), Refills(s) 0, Pharmacy: [facility]/pharmacy #[id number], 158, cm, 12/31/22 15:13:00 EDT, Height/Length Dosing, 57.9, kg, 12/31/22 15:13:00 EDT, Weight Dosing Start Date: 01/03/23 Status: Ordered sildenafil 20 mg oral tablet (1 source) Phosphodiesterase 5 Inhibitor Start: 07-10-2024 take 1 tablet by mouth in the morning sildenafil (REVATIO) 20 MG tablet 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 TAKE 1 TABLET BY MOUTH IN THE MORNING AND IN THE EVENING 30 tablet 07/10/2024 Active sulfaSALAzine 500 mg oral tablet (4 sources) [...] qWeek, # 12 EA, Refills(s) 3, Pharmacy: [facility]/pharmacy #[id number], 158, cm, 05/25/23 15:27:00 EDT, Height/Length Dosing, 57.3, kg, 05/25/23 15:27:00 EDT, Weight Dosing Start Date: 12/10/23 Status: Ordered Start: 12-25-2022 Vitamin D 50,0 00 intl units (1.25 mg) oral capsule 50,000 International_Unit, Oral, qWeek, # 12 EA, Refills(s) 3, Pharmacy: [facility]/pharmacy #[id number], 158, cm, 06/11/22 15:39:00 EST, Height/Length Dosing, 61.4, kg, 06/11/22 15:39:00 EST, Weight Dosing Start Date: 12/25/22 Status: Ordered Start: 10-23-2021 Vitamin D 50,0 00 intl units (1.25 mg) oral capsule 50,000 International_Unit, Oral, qWeek, # 12 EA, Refills(s) 3, Pharmacy: [facility]/pharmacy #[id number], 158, cm, 09/02/21 14:45:00 EST, Height/Length Dosing, 60, kg, 09/02/21 14:45:00 EST, Weight Dosing Start Date: 10/23/21 Status: Ordered Completed/Discontinued Medications Medication Drug Class(es) Dates Sig (Normalized) Sig (Original) fludeoxyglucose F 18 injection 18.8 millicurie (1 source) Start: 08-16-2024 End: 08-16-2024 take 1 dose intravenously once 18.8 millicurie, IntraVENous, IMG ONCE PRN, 1 dose, Starting on Wed08/16/24 at 1500, Until Wed08/16/24 at 1500, Other, Indication of use: Oncology Imaging Problems Active Problems Problem Classification Problem Date [...] [Anxiety disorder, unspecified] Onset: 12-31-2022 05-26-2021 Chronic Cardiac and circulatory congenital anomalies (1 source) Disorder of aorta; Translations: [Coarctation of aorta] 03-16-2024 Chronic Chronic obstructive pulmonary disease and bronchiectasis (12 sources) Pulmonary emphysema; Translations: [Emphysema, unspecified] Onset: 05-12-2022 Chronic Complications of surgical procedures or medical care (1 source) Postoperative hypothyroidism; Translations: [Postprocedural hypothyroidism] Onset: 03-21-2024 Chronic Coronary atherosclerosis and other heart disease (11 sources) Atherosclerotic heart disease of douglas coronary artery without angina pectoris; Translations: [Coronary [...] outpatient CDI policy. Diabetes mellitus without complication (11 sources) Type 1 diabetes mellitus without complications; Translations: [Type 2 diabetes mellitus without complication] Onset: 01-19-2022 Chronic Comment on above: Added per outpatient CDI policy. Diabetes mellitus without complication (1 source) Presence of insulin pump (external) (internal); Translations: [PRESENCE INSULIN PUMP EXT INTERNAL] Onset: 01-19-2022 Episodic Disorders of lipid metabolism (12 sources) Hyperlipidemia; Translations: [Hyperlipidemia, unspecified] Onset: 12-31-2022 05-26-2019 Chronic E Codes: Fall (1 source) Unspecified fall, initial encounter; Translations: [UNSPECIFIED FALL INITIAL ENCOUNTER] Onset: 01-19-2022 Episodic Essential hypertension (11 sources) Hypertensive disorder; Translations: [Essential hypertension] Onset: 12-31-2022 01-18-2014 Chronic Fluid and electrolyte disorders (7 sources) Dehydration; Translations: [Dehydration] Onset: 12-31-2022 Episodic Gangrene (17 sources) Critical lower limb ischemia ; Translations: [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, left leg] Onset: 01-13-2024 01-13-2024 Chronic Heart valve disorders (9 sources) Aortic valve stenosis; Translations: [Nonrheumatic aortic (valve) stenosis] Onset: 02-10-2024 03-28-2024 Chronic Menopausal disorders (1 source) Postmenopausal bleeding 05-25-2023 Chronic Mood disorders (13 sources) Major depressive disorder, single episode, unspecified; Translations: [Mild major depression, single episode] Onset: 01-19-2022 Chronic Nonspecific chest pain (4 sources) Chest pain, unspecified; Translations: [CHEST PAIN UNSPECIFIED] Onset: 01-14-2022 Episodic Nutritional deficiencies (9 sources) Vitamin D deficiency; Translations: [Vitamin D deficiency, unspecified] Onset: 03-28-2024 05-26-2019 Chronic Nutritional deficiencies (7 sources) Vitamin B deficiency; Translations: [Deficiency of other specified B group vitamins] Onset: 12-31-2022 Episodic Osteoarthritis (8 sources) Osteoarthritis 11-16-2014 Chronic Comment on above: Knees Other aftercare (1 source) Other mcc (current) drug therapy; Translations: [OTH CARE HOME CURRENT DRUG THERAPY] Onset: 01-19-2022 Episodic Other aftercare (1 source) long term care administrator (current) use of insulin; Translations: [CARE HOME CURRENT USE OF INSULIN] Onset: 01-19-2022 Episodic Other and unspecified benign neoplasm (8 [...] sources) History of fall 05-26-2021 Episodic Other lower respiratory disease (1 source) Lung mass; Translations: [Other nonspecific abnormal finding of lung field] 08-16-2024 Episodic Other lower respiratory disease (1 source) Other nonspecific abnormal finding of lung field; Translations: [Other nonspecific abnormal finding of lung field] Onset: 08-16-2024 Episodic Other nervous system disorders (1 source) Tremor, unspecified; Translations: [TREMOR UNSPECIFIED] Onset: 01-19-2022 Episodic Other screening for suspected conditions (not mental disorders or infectious disease) (2 sources) CT of chest abnormal; Translations: [Abnormal findings on diagnostic imaging of other specified body structures] Onset: 08-16-2024 08-16-2024 Chronic Other screening for suspected conditions (not mental disorders or infectious disease) (9 sources) Encounter for screening mammogram for malignant neoplasm of breast; Translations: [Screening for malignant neoplasm done] Onset: 12-31-2022 Episodic Other upper respiratory disease (8 sources) Chronic hoarseness 12-27-2020 Episodic Peripheral and visceral atherosclerosis (4 sources) Peripheral vascular disease; Translations: [Peripheral vascular disease, unspecified] Onset: 03-21-2024 Chronic Regional enteritis and ulcerative colitis (19 sources) Ulcerative colitis; Translations: [Ulcerative colitis, unspecified, without complications] Onset: 10-29-2021 Resolved: 10-29-2021 Chronic Residual codes; unclassified (1 source) Other problems related to lifestyle; Translations: [OTHER PROBLEMS RELATED TO LIFESTYLE] Onset: 01-19-2022 Episodic Spondylosis; intervertebral disc disorders; other back problems (8 sources) Low back pain 09-05-2020 Episodic Substance-related disorders (20 sources) Cocaine abuse, in remission; Translations: [Nicotine dependence, cigarettes, uncomplicated] Onset: 01-19-2022 12-27-2020 Chronic Comment on above: Added secondary to d ocumentation in Social History. Superficial injury; contusion (1 source) Contusion of other part of head, initial encounter; Translations: [CONTUS OTH PRT HEAD INITIAL ENCNTR] Onset: 01-19-2022 Episodic Thyroid disorders (11 sources) Hypothyroidism, unspecified; Translations: [Hypothyroidism] Onset: 01-19-2022 [...] Problem Date Documented Da te Episodic/Chronic Other aftercare (2 sources) Long-term current use of insulin; Translations: [long term care administrator (current) use of insulin] Onset: 12-31-2022 Episodic Other gastrointestinal disorders (2 sources) Full incontinence of feces Onset: 10-29-2021 Resolved: 11-13-2021 Episodic Other gastrointestinal disorders (1 source) Other fecal abnormalities Onset: 10-29-2021 Resolved: 10-29-2021 Episodic Other nervous system disorders (11 sources) Tremor; Translations: [Tremor, unspecified] Onset: 05-12-2022 Episodic Unclassified (1 source) Onset: 04-04-2024 04-04-2024 Results Test Name Value Interpretation Reference Range Facility CBC With Platelet No Differe ntialon 09-13-2024 Erythrocyte distribution width (RBC) [Ratio] 12.3 % Normal 11.5-14.5 [facility] Comment on above: Performed By: #### C BCND #### [facility] [address] [place] [address] Hematocrit (Bld) [Volume fraction] 35.9 % Low 37.0-47.0 [facility] Comment on above: Performed By: #### C BCND #### [facility] [address] [place] [address] Hemoglobin (Bld) [Mass/Vol] 12.4 g/dL Normal 12.0-16.0 [facility] Comment on above: Performed By: #### C BCND #### [facility] [address] [place] [address] MCH (RBC) [Entitic mass] 32.8 pg Critically high 27.0-31.3 [facility] Comment on above: Performed By: #### C BCND #### [facility] [address] [place] [address] MCHC 34.5 % Normal 33.0-37.0 [facility] Comment on above: Performed By: #### C BCND #### [facility] [address] [place] [address] MCV (RBC) [Entitic vol] 95.0 fL Critically high 79.4-94.8 [facility] Comment on above: Performed By: #### C BCND #### [facility] [address] [place] [address] Platelets (Bld) [#/Vol] 329 10*3/uL Normal 130-400 [facility] Comment on above: Performed By: #### C BCND #### [facility] [address] [place] [address] RBC (Bld) [#/Vol] 3.78 10*6/uL Low 4.20-5.40 [facility] Comment on above: Performed By: #### C BCND #### [facility] [address] [place] [address] WBC (Bld) [#/Vol] 13.2 10*3/uL Critically high 4.8-10.8 [facility] Comment on above: Performed By: #### C BCND #### [facility] [address] [place] [address] Prothrombin Timeon INR Coag (PPP) [Relative time] 1.0 {INR} Normal [facility] Comment on above: Performed By: #### P T #### [facility] [address] [place] [address] PT Coag (PPP) [Time] 13.2 s Normal 12.3-14.9 [facility] Comment on above: Performed By: #### P T #### [facility] [address] [place] [address] SKULL BASE TO MID THI GHon 08-16-[address] SKULL BASE TO MID THIGH EXAMINATION: WHOLE BODY PET/CT 08/16/2024 TECHNIQUE: Following IV injection of 18.8 mCi of F-18 FDG, PET tumor imaging was acquired from the base of the skull to the mid thighs. Computed tomography was used for purposes of attenuation correction and anatomic localization. Fusion imaging was utilized for interpretation. Uptake time 57 min. Glucose level 187 mg/dl. COMPARISON: No prior imaging is available for comparison. HISTORY: ORDERING SYSTEM PROVIDED HISTORY: Mass of left lung, Abnormal CT scan, chest TECHNOLOGIST PROVIDED HISTORY: What reading provider will be dictating this exam?->CRC FINDINGS: HEAD/NECK: There is a borderline enlarged left cervical II lymph node which is hypermetabolic, with a maximal SUV of 5.7. Subcentimeter posterior right parotid gland nodule has a maximal SUV of 2.8 and may represent a small adenoma. CHEST: CT attenuation scan reveals a 2.0 by 1.3 cm nodule in the posterior lingula which is hypermetabolic, with a maximal SUV of 8.8. No additional hypermetabolic pulmonary parenchymal foci are identified. No hypermetabolic thoracic lymph node is seen. ABDOMEN/PELVIS: The liver, spleen, pancreas and adrenals are free of focal hypermetabolic lesion. No hypermetabolic abdominal or pelvic lymph node is identified. There is no evidence of focal bowel hypermetabolic activity. BONES/SOFT TISSUE: Mildly increased linear metabolic activity within the anterior gluteal muscles is likely secondary to overuse. No osseous hypermetabolic lesion is identified. INCIDENTAL CT FINDINGS: Coronary arterial atherosclerotic calcifications are present. There is is a nonobstructing 3 mm midpole left renal calculus. IMPRESSION: 2 cm lingular nodule is hypermetabolic and worrisome for neoplasm. Tissue sampling is recommended. Nonenlarged hypermetabolic left cervical level II lymph node. Interpreted by: Yg Alston MD Signed by: Yg Alston MD 08/16/24 Final result Normal [facility] PT Skull base to mid-thighon 08-16-2024 2 cm lingular nodule is hypermetabolic and worrisome for neoplasm. Tissue sampling is recommended. Nonenlarged hypermetabolic left cervical level II lymph node. [facility] EXAMINATION: WHOLE BODY PET/CT 08/16/2024 TECHNIQUE: Following IV injection of 18.8 mCi of F-18 FDG, PET tumor imaging was acquired from the base of the skull to the mid thighs. Computed tomography was used for purposes of attenuation correction and anatomic localization. Fusion imaging was utilized for interpretation. Uptake time 57 min. Glucose level 187 mg/dl. COMPARISON: No prior imaging is available for comparison. HISTORY: ORDERING SYSTEM PROVIDED HISTORY: Mass of left lung, Abnormal CT scan, chest TECHNOLOGIST PROVIDED HISTORY: What reading provider will be dictating this exam?->CRC FINDINGS: HEAD/NECK: There is a borderline enlarged left cervical II lymph node which is hypermetabolic, with a maximal SUV of 5.7. Subcentimeter posterior right parotid gland nodule has a maximal SUV of 2.8 and may represent a small adenoma. CHEST: CT attenuation scan reveals a 2.0 by 1.3 cm nodule in the posterior lingula which is hypermetabolic, with a maximal SUV of 8.8. No additional hypermetabolic pulmonary parenchymal foci are identified. No hypermetabolic thoracic lymph node is seen. ABDOMEN/PELVIS: The liver, spleen, pancreas and adrenals are free of focal hypermetabolic lesion. No hypermetabolic abdominal or pelvic lymph node is identified. There is no evidence of focal bowel hypermetabolic activity. BONES/SOFT TISSUE: Mildly increased linear metabolic activity within the anterior gluteal muscles is likely secondary to overuse. No osseous hypermetabolic lesion is identified. INCIDENTAL CT FINDINGS: Coronary arterial atherosclerotic calcifications are present. There is is a nonobstructing 3 mm midpole left renal calculus. [facility] Yg Alston MD - 08/16/2024 EXAMINATION: WHOLE BODY PET/CT 08/16/2024 TECHNIQUE: Following IV injection of 18.8 mCi of F-18 FDG, PET tumor imaging was acquired from the base of the skull to the mid thighs. Computed tomography was used for purposes of attenuation correction and anatomic localization. Fusion imaging was utilized for interpretation. Uptake time 57 min. Glucose level 187 mg/dl. COMPARISON: No prior imaging is available for comparison. HISTORY: ORDERING SYSTEM PROVIDED HISTORY: Mass of left lung, Abnormal CT scan, chest TECHNOLOGIST PROVIDED HISTORY: What reading provider will be dictating this exam?->CRC FINDINGS: HEAD/NECK: There is a borderline enlarged left cervical II lymph node which is hypermetabolic, with a maximal SUV of 5.7. Subcentimeter posterior right parotid gland nodule has a maximal SUV of 2.8 and may represent a small adenoma. CHEST: CT attenuation scan reveals a 2.0 by 1.3 cm nodule in the posterior lingula which is hypermetabolic, with a maximal SUV of 8.8. No additional hypermetabolic pulmonary parenchymal foci are identified. No hypermetabolic thoracic lymph node is seen. ABDOMEN/PELVIS: The liver, spleen, pancreas and adrenals are free of focal hypermetabolic lesion. No hypermetabolic abdominal or pelvic lymph node is identified. There is no evidence of focal bowel hypermetabolic activity. BONES/SOFT TISSUE: Mildly increased linear metabolic activity within the anterior gluteal muscles is likely secondary to overuse. No osseous hypermetabolic lesion is identified. INCIDENTAL CT FINDINGS: Coronary arterial atherosclerotic calcifications are present. There is is a nonobstructing 3 mm midpole left renal calculus. IMPRESSION: 2 cm lingular nodule is hypermetabolic and worrisome for neoplasm. Tissue sampling is recommended. Nonenlarged hypermetabolic left cervical level II lymph node. [facility] Study observation (narrative) [facility] PT Skull base to mid-thighOr dered By: Yg Alston on 08-16-[address] [facility] Coding Queryon 03-31-2024 Coding Query Coding Query From: More Meyer To: ARUNA NIEVESLOLYGhada; Cc: Lee Martinez DO; Sent: 03/28/2024 11:04:27 [...] Thank You, More From: Ghada CRUZ To: oMre Meyer; Sent: 03/29/2024 21:08:38 EDT Subject: RE: Coding Query Caller Name: CARI HALE; Caller Number: H , M ruled out... d/c summary states symptoms secondary to hypoglycemia. However, TIA was ruled out also. From: Lee Martinez DO To: More Meyer; Sent: 03/31/2024 08:15:56 EDT Subject: RE: Coding Query Caller Name: CARI HALE; Caller Number: H , M [facility] Provider Letteron 03-24-2024 Provider Letter Provider Letter March 24, 2024 [address] H[address] [place] [phone] CARI HALE 1965 Dear Cari, We have been trying to reach you with no success. It is important that you return our call regarding your recent hospital discharge upon receiving this letter. Also, at the time of your call, please provide us with your current information. Thank you for your prompt attention to this matter. Sincerely, Tre Salas RN Manager Compensation [phone] Normal [facility] CHEMISTRYOrdered By: Lab ROP User on 03-22-2024 Glucose [Mass/Vol] 354 mg/dL High 55 - 99 mg/dL FT POC Subsection Comment on above: Result Comment: Carter jarrell RN/ POC Device SN [id number] 1 Invalid Interpretation Code [facility] POC Subsection POC User ID [id number] 1 Invalid Interpretation Code [facility] POC Subsection POC Username PITA BAUTISTA Invalid Interpretation Code [facility] POC Subsection Glucose [Mass/Vol] 52 mg/dL Low 55 - 99 mg/dL [facility] POC Subsection Comment on above: Result Comment: Carter jarrell RN/ POC Device SN [id number] 1 Invalid Interpretation Code [facility] POC Subsection POC User ID [id number] 1 Invalid Interpretation Code [facility] POC Subsection POC Username BAUTISTA PITA Invalid Interpretation Code [facility] POC Subsection CHEMISTRYOrdered By: SYSTEM SYSTEM on [...] 370 Contrast amount in ml's: 100 Normal [facility] Capillary Glucose POCon 03-03 Glucose [Mass/Vol] 354 mg/dL High 55-99 [facility] Comment on above: Result Comment: Carter SERRANO Performed By: #### 2 [id number] ####[facility] [id number] [place] [address] Glucose [Mass/Vol] 52 mg/dL Low 55-99 [facility] Comment on above: Result Comment: Carter SERRANO Performed By: #### 2 [id number] #### [facility] [address] [place] [address] Discharge Note-Nursingon Discharge Note-Nursing Discharge Note-Nursing CARI HALE :1965 Visit Date:03/21/2024 Inpatient Discharge Instructions Your [...] When: Within 2 to 4 weeks Where: [facility] [place] [address]- Medications What How Much When Why Instructions [...] bedtime) R (more content not included)... Normal [facility] ED Note-Physicianon 03-22-20 ED Note-Physician ED [...] she was able to call her via [employer] on her phone and scream for help. [...] Patient seen and evaluated by the physician assistant director of nursing. Attending physician was present in the emergency department and supervised care. This visit was performed by both the physician and an APC. I performed all aspects of the MDM as documented. This report was transcribed using voice recognition software. Every effort was made to ensure accuracy, however, inadvertently computerized airplane inspector mistakes may be present. Appropriate healthcare PPE was used in evaluating this patient. The patient was placed in a mask. The healthcare provider was wearing mask, gloves, and utilizing proper hand hygiene. All equipment was properly cleansed. I performed a substantive part of the MDM during the patient?s E/M visit. (more content not included)... Normal [facility] Comment on above: Result Comment: Elec tronically Signed By: Taylor García PA-C\.br\Date and Time Signed: 03/21/24 18:42 EDT\.br\Electronically Co-Signed By: Han Olivera M.D.\.br\Date and Time Co-Signed: 03/22/24 13:39 EDT Extra [place] 03-22-2024 WB Tube Collected Yes Invalid Interpretation Code [facility] Comment on above: Performed By: #### 1 [id number] #### [facility] [address] [place] [address] Free T4on 03-22-2024 Free T4 [Mass/Vol] 1.32 ng/dL Normal 0.58-1.64 [facility] Comment on above: Performed By: #### 2 [id number] #### [facility] [address] [place] [address] Inpatient Clinical Summaryon 03-22-2024 Inpatient Clinical Summary Inpatient Clinical Summary [address] [address] Clinical Summary Person Information: Name: CARI HALE Age: 59 Years : 1965 Sex: Female PCP: Flora Khan Marital Status: Race: White Ethnicity: Non- or Language: Uzbek Visit Id: Visit Reason: Weakness or fatigue; Potential stroke; STROKE Speciality: Acuity: Enc Type: Observation Med Service: Medical Arrival: 03/21/2024 13:41:38 Discharge: Dispo Type: Admitted as IP to this Hosp Address: [address] [place] [id number] Provider Notes: Diagnosis: 1:TIA (transient ischemic attack); [...] Referring Physician: Follow up: With: Address: When: Jesse Carr MD [place] [id number] Within 2 to 4 weeks Patient Education Information: Alcohol Misuse and Dependence Information, Adult; High Cholesterol; Type 2 Diabetes Mellitus, Diagnosis, Adult; Hypertension, Adult, Uufm-uv-[id number]; Smoking Tobacco Information, Adult; Core Measures Transient Ischemic Attack (TIA) [facility] (Custom); Core Measures: Stroke (Cerebrovascular Accident) [facility], (Custom) Normal [facility] Inpatient Patient Summaryon 03-22-2024 Inpatient Patient Summary Inpatient Patient Summary [place] [id number] Patient Discharge Instructions PERSON INFORMATION Name: CARI HALE Date of : 1965 Current Date: 03/22/2024 16:19:37 PHYSICIANS Admitting Physician: Lee Martinez DO Primary Care Physician: Flora Khan PCP Comment: Discharge Diagnosis: 1:TIA (transient ischemic attack); 2:Type 2 diabetes mellitus with diabetic neuropathy; 3:HTN; 4:Hyperlipidemia; 5:PAD (peripheral artery disease); 6:CAD; 7:Emphysema/COPD; 8:Mood disorder; 9:Alcohol abuse; 10:History of thyroidectomy; 11:Smoker; Diabetes mellitus with hypoglycemia Condition at Discharge: CARI [place] has been given the following list of [...] Follow up: With: Address: When: Bruno HANKS, Jesse, [place] [id number] Within 2 to 4 weeks In the [...] Last Dose: (more content not included)... Normal [facility] Interdisciplinary Note - Edy e Manageron 03-22-2024 Interdisciplinary Note - Weight Loss Counselor Interdisciplinary Note - Weight Loss Counselor Patient is drowsy does not stay awake enough to speak to CRM. Unable at this time to assess DC needs Patient is here as observation for possible stroke. Patient is assigned to [facility], see notes. Patient has neurology on [...] Jesse and he is her ride at [place]. Patient verified PCP as Dr Diallo, dme and insurance. Patient is here as observation for possible stroke. Patient is assigned to [facility], see notes. Patient has neurology on case. Patient will get a MRI and MRA. Patient is pending PT recs. Patient declines at this time DC needs for DME, HH or PM. If she changes her mind for needs. She will call [facility]. Patient was provided contact info, susanna toussaint updated. CRM Following [facility] Comment on above: Result Comment: Elec trocristopherally Signed By: Rose Lucio\.br\Date and Time Signed: 03/22/24 15:08 EDT Interdisciplinary Note - Soc ial Workeron 03-22-2024 Interdisciplinary Note - Bead Trimmer Interdisciplinary Note - Bead Trimmer There was a system generated request for [...] her consumption and she voiced understanding. Normal [facility] MRA Head w/o Contraston 03-03 MRA Head w/o Contrast Exam Date/Time: 03/22/2024 14:04 EDT Reason for Exam: Stroke Report IMPRESSION: NEGATIVE LIMITED HEAD MRA. EXAM: MRA Head w/o Contrast DATE: 03/22/2024 1:05 PM CLINICAL HISTORY: Stroke. Weakness and falls. COMPARISON: Head MRI 03/22/2024. TECHNIQUE: Three-dimensional myha-ae-mvzxde MRA of the intracranial arterial circulation was [...] Alexander MD Transcribed by: HARRY Technologist: TRACY Dutta [facility] MRI Brain w/o Contraston MRI Brain w/o [...] (Electronic Signature): 03/22/2024 2:28 pm Signed by: Jerrod Alexander MD Transcribed by: HARRY Technologist: TRACY Normal [facility] TSH With T4fr Reflexon 03-22 TSH Qn 0.01 m[IU]/L Low 0.34-5.60 [facility] Comment on above: Performed By: #### 1 [id number] #### [facility] [address] [place] [address] BB Draw & Holdon 03-21-2024 BB D&H Sample drawn for Blood Ba Normal [facility] Comment on above: Performed By: #### 1 [id number] #### [facility] [address] [place] [address] CBC w/ Auto Diffon 4 Basophils/100 WBC (Bld) 0.8 % Normal 0.0-2.0 [facility] Comment on above: Performed By: #### 2 [id number] #### [facility] [address] [place] [address] Basophils/Leukocytes Auto (Bld) [Pure # fraction] 0.1 E9/L Normal 0.0-0.2 [facility] Comment on above: Performed By: #### 2 [id number] #### [facility] [address] [place] [address] Eosinophils (Bld) [#/Vol] 0.2 E9/L Normal 0.0-0.5 [facility] Comment on above: Performed By: #### 2 [id number] #### [facility] [address] [place] [address] Eosinophils/100 WBC (Bld) 2.5 % Normal 0.0-8.0 [facility] Comment on above: Performed By: #### 2 [id number] #### [facility] [address] [place] [address] Erythrocyte distribution width (RBC) [Ratio] 13.7 % Normal 10.9-14.2 [facility] Comment on above: Performed By: #### 2 [id number] #### [facility] [address] [place] [address] Hematocrit (Bld) [Volume fraction] 39.5 % Normal 34.0-46.0 [facility] Comment on above: Performed By: #### 2 [id number] #### [facility] [address] [place] [address] Hemoglobin (Bld) [Mass/Vol] 13.0 g/dL Normal 12.0-16.0 [facility] Comment on above: Performed By: #### 2 [id number] #### [facility] [address] [place] [address] Lymphocytes (Bld) [#/Vol] 2.1 E9/L Normal 1.0-4.0 [facility] Comment on above: Performed By: #### 2 [id number] #### [facility] [address] [place] [address] Lymphocytes/100 WBC (Bld) 22.4 % Normal 14.0-50.0 [facility] Comment on above: Performed By: #### 2 [id number] #### [facility] [address] [place] [address] MCH (RBC) [Entitic mass] 32.8 pg Normal 27.0-34.0 [facility] Comment on above: Performed By: #### 2 [id number] #### [facility] [address] [place] [address] MCHC (RBC) [Mass/Vol] 32.9 g/dL Normal 31.4-36.0 [facility] Comment on above: Performed By: #### 2 [id number] #### [facility] [address] [place] [address] MCV (RBC) [Entitic vol] 99.8 fL Normal 80.0-100.0 [facility] Comment on above: Performed By: #### 2 [id number] #### [facility] [address] [place] [address] Monocytes (Bld) [#/Vol] 1.0 E9/L Normal 0.2-1.0 [facility] Comment on above: Performed By: #### 2 [id number] #### [facility] [address] [place] [address] Neutrophils (Bld) [#/Vol] 6.1 E9/L Normal 2.0-7.5 [facility] Comment on above: Performed By: #### 2 [id number] #### [facility] [address] [place] [address] Neutrophils/100 WBC (Bld) 63.7 % Normal 36.0-75.0 [facility] Comment on above: Performed By: #### 2 [id number] #### [facility] [address] [place] [address] Platelet mean volume (Bld) [Entitic vol] 7.9 fL Normal 6.4-10.8 [facility] Comment on above: Performed By: #### 2 [id number] #### [facility] [address] [place] [address] Platelets (Bld) [#/Vol] 304.0 E9/L Normal 150.0-500.0 [facility] Comment on above: Performed By: #### 2 [id number] #### [facility] [address] [place] [address] RBC (Bld) [#/Vol] 4.0 E12/L Low 4.3-5.9 [facility] Comment on above: Performed By: #### 2 [id number] #### [facility] [address] [place] [address] WBC corrected for nucl RBC Auto (Bld) [#/Vol] 9.6 E9/L Normal 4.0-11.0 [facility] Comment on above: Performed By: #### 2 [id number] #### [facility] [address] [place] [address] CHEMISTRYOrdered By: Lab ROP User on 03-21-2024 Glucose [Mass/Vol] 150 mg/dL High 55 - 99 mg/dL [facility] POC Subsection POC Device SN [id number] Invalid Interpretation Code [facility] POC Subsection POC User ID [id number] 1 Invalid Interpretation Code [facility] POC Subsection POC Username DULCE MARIA BERRY Invalid Interpretation Code [facility] POC Subsection CHEMISTRYOrdered By: SYSTEM SYSTEM on [...] Sensitivity Troponin I Instructions For Use, Pina Chinyere, March 2018) Urea nitrogen [Mass/Vol] 7 mg/dL Normal 5 - 21 mg/dL Remisol Chem Urea nitrogen/Creatinine [Mass ratio] 10 mg/mg Normal 10 - 20 Remisol Chem CMPon 03-21-2024 Albumin [Mass/Vol] 3.4 g/dL Normal 3.3-5.0 [facility] Comment on above: Performed By: #### 2 [id number] #### [facility] [address] [place] [address] Albumin/Globulin (S) [Mass conc ratio] 1.4 Normal 1.1-2.2 [facility] Comment on above: Performed By: #### 2 [id number] #### [facility] [address] [place] [address] ALP [Catalytic activity/Vol] 106 Int._Unit/L High 21-98 [facility] Comment on above: Performed By: #### 2 [id number] #### [facility] [address] [place] [address] ALT No additional P-5'-P [Catalytic activity/Vol] 17 Int._Unit/L Normal 6-46 [facility] Comment on above: Performed By: #### 2 [id number] #### [facility] [address] [place] [address] Anion gap [Moles/Vol] 15 mmol/L Normal 6-16 [facility] Comment on above: Performed By: #### 2 [id number] #### [facility] [address] [place] [address] AST [Catalytic activity/Vol] 21 Int._Unit/L Normal 5-43 [facility] Comment on above: Performed By: #### 2 [id number] #### [facility] [address] [place] [address] Bilirubin [Mass/Vol] 0.5 mg/dL Normal 0.0-1.1 [facility] Comment on above: Performed By: #### 2 [id number] #### [facility] [address] [place] [address] Calcium [Mass/Vol] 8.5 mg/dL Low 8.9-11.1 [facility] Comment on above: Performed By: #### 2 [id number] #### [facility] [address] [place] [address] Chloride [Moles/Vol] 105 mmol/L Normal 101-111 [facility] Comment on above: Performed By: #### 2 [id number] #### [facility] [address] [place] [address] CO2 [Moles/Vol] 24 mmol/L Normal 21-31 [facility] Comment on above: Performed By: #### 2 [id number] #### [facility] [address] [place] [address] Creatinine [Mass/Vol] 0.7 mg/dL Normal 0.5-1.3 [facility] Comment on above: Performed By: #### 2 [id number] #### [facility] [address] [place] [address] Globulin (S) [Mass/Vol] 2.5 g/dL Normal 1.4-4.0 [facility] Comment on above: Performed By: #### 2 [id number] #### [facility] [address] [place] [address] Glucose [Mass/Vol] 112 mg/dL Normal 55-199 [facility] Comment on above: Performed By: #### 2 [id number] #### [facility] [address] [place] [address] Potassium [Moles/Vol] 4.3 mmol/L Normal 3.5-5.3 [facility] Comment on above: Performed By: #### 2 [id number] #### [facility] [address] [place] [address] Protein [Mass/Vol] 5.9 g/dL Low 6.0-7.8 [facility] Comment on above: Performed By: #### 2 [id number] #### [facility] [address] [place] [address] Sodium [Moles/Vol] 140 mmol/L Normal 135-145 [facility] Comment on above: Performed By: #### 2 [id number] #### [facility] [address] [place] [address] Urea nitrogen [Mass/Vol] 7 mg/dL Normal 5-21 [facility] Comment on above: Performed By: #### 2 [id number] #### [facility] [address] [place] [address] Urea nitrogen/Creatinine [Mass ratio] 10 No Units Normal 10-20 [facility] Comment on above: Performed By: #### 2 [id number] #### [facility] [address] [place] [address] COAGULATIONOrdered By: Nelida Diallo on 03-21-2024 aPTT Coag (PPP) [Time] 27.5 s Normal 25.1 - 36.5 second(s) [facility] Auto Coag Comment on above: Interpretive Data: Kallie lacy 15 days - 4 weeks 1 - 5 months 6 - 11 months 1 - 5 years 6 - 10 years 11 - 17 years PTT Mean: 35.4 (27.6-45.6) Mean: 33.5 (24.8-40.7) Mean: 32.4 (25.1-40.7) Mean: 31.6 (24.0-39.2) Mean: 31.6 (26.9-38.7) Mean: 31.0 (24.6-38.4) Pediatric Reference ranges were obtained from a study by behzad Ling prepared from 1437 samples obtained at 7 different centers using the same coagulation reagent and instrumentation as [facility]. Currently there are no coagulation studies available worldwide for children to 14 days, and no normal ranges. Heparin therapeutic range (represented by Anti-Factor Xa activity of 0.2 - 0.4 U/mL) corresponds to PTT of 56.6 - 109.0 sec. INR Coag (PPP) [Relative time] 0.92 {INR} Invalid Interpretation Code [facility] Comment on above: Interpretive Data: I NR results are specifically intended to assess patients stabilized on long-term Anticoagulation therapy suggested INR s Less Intensive Anticoagulation 2.0 3.0 Conventional Range 3.0 4.5 PT Coag (PPP) [Time] 10.3 s Normal 9.4 - 1 2.5 second(s) [facility] Coag Comment on above: Interpretive Data: [...] the same coagulation reagent and instrumentation as [facility]. Currently there are no coagulation studies available [...] paranasal sinuses are essentially clear. Ordering Provider: Yoel Hooker FINAL REPORT Dictated: 03/21/2024 1:58 pm Jerrod Alexander MD Signed (Electronic Signature): 03/21/2024 1:58 pm Signed by: Jerrod Alexander MD Transcribed by: HARRY Technologist: WILLIE Torres Read 03/21/2024 01:55 pm EDT, Jerrod Alexander MD CT Brain: No acute intra or extra axial findings. Normal [facility] Capillary Glucose POCon 03-03 Glucose [Mass/Vol] 150 mg/dL High 55-99 [facility] Comment on above: Performed By: #### 2 [id number] #### [facility] [address] [place] [address] Glucose [Mass/Vol] 281 mg/dL High 55-99 [facility] Comment on above: Result Comment: Carter jarrell RN/ Performed By: #### 2 [id number] #### [facility] [address] [place] [address] ED Clinical Summaryon 2023 ED Clinical Summary ED Clinical Summary [address] [address] ED Clinical Summary Person Information Name: CARI [place] Age: 59 Years : 1965 Sex: Female Language: Uzbek PCP: Flora Khan Marital Status: Visit Id: Visit Reason: Weakness or fatigue; Potential stroke; STROKE Speciality: Acuity: 2 Enc Type: Observation Med Service: Medical Arrival: 03/21/2024 13:41:38 Discharge: LOS: 000 05:49 Checkin: 03/21/2024 13:41:38 Checkout: 03/21/2024 19:30:55 Dispo Type: Admitted as IP to this [facility] EVENTS: Event Name Event Status Request [...] 19:17:09 Meds Admin Request 03/21/2024 19:20:30 ADDRESS: [address] [place] [phone] PHYS DOC NOTES: MEDICAL INFORMATION: Prescriptions Given: [...] mg Tab) (more content not included)... Normal [facility] ED Patient Education Noteon 03-21-2024 ED Patient Education Note ED Patient Education Note Normal [facility] ED Patient Summaryon 024 ED Patient Summary ED Patient Summary [place] [id number] Patient Discharge Instructions Person Information Name: CARI HALE Age: 59 Years Arrival Date: 03/21/2024 13:41:38 Discharge Diagnosis: 1:TIA (transient ischemic attack); 2:Type 2 diabetes mellitus with diabetic neuropathy; 3:HTN; 4:Hyperlipidemia; 5:CAD; 6:Emphysema/COPD; 7:Mood disorder; 8:History of thyroidectomy; 9:Smoker Primary Care Physician: Flora Khan Provider Information Primary Provider: Han Olivera M.D. Advanced Neon Glass Blower:Taylor García PA-C The exam and treatment you received in the Emergency Department were for an urgent problem and are not intended as complete care. It is important that you follow up with a doctor, nurse practitioner, or physician?s assistant director of nursing for ongoing care. If your symptoms become [...] opioids can be used to help relieve tcyefdit-ru-ofioud pain and are often prescribed following a [...] be struggling with addiction, tell your health pharmacy care coordinator and ask for guidance or call [facility]?S National Help (more content not included)... Normal [facility] Ethanolon 03-21-2024 Ethanol Lvl <10 Normal <=11 [facility] Comment on above: Performed By: #### 2 [id number] #### [facility] [address] [place] [address] Extra Alexander 03-21-2024 WB Tube Collected Yes Invalid Interpretation Code [facility] Comment on above: Performed By: #### 1 [id number] #### [facility] [address] [place] [address] HEMATOLOGYOrdered By: SYSTEM SYSTEM on 03-21-2024 Basophils/100 [...] Coag (PPP) [Time] 27.5 second(s) Normal 25.1-36.5 [facility] Comment on above: Result Comment: Para meter 15 days - 4 weeks 1 - 5 months 6 - 11 months 1 - 5 years 6 - 10 years 11 - 17 years PTT Mean: 35.4 (27.6-45.6) Mean: 33.5 (24.8-40.7) Mean: 32.4 (25.1-40.7) Mean: 31.6 (24.0-39.2) Mean: 31.6 (26.9-38.7) Mean: 31.0 (24.6-38.4) Pediatric Reference ranges were obtained from a study by behzad Ling prepared from 1437 samples obtained at 7 different centers using the same coagulation reagent and instrumentation as [facility]. Currently there are no coagulation studies available worldwide for children to 14 days, and no normal ranges. Heparin therapeutic range (represented by Anti-Factor Xa activity of 0.2 - 0.4 U/mL) corresponds to PTT of 56.6 - 109.0 sec. Performed By: #### 1 [id number] #### [facility] [address] [place] [address] INR Coag (PPP) [Relative time] 0.92 {INR} Invalid Interpretation Code [facility] Comment on above: Result Comment: INR results are specifically intended to assess patients stabilized on long-term Anticoagulation therapy suggested INR?s ?Less Intensive Anticoagulation? 2.0 ? 3.0 Conventional Range 3.0 ? 4.5 Performed By: #### 1 [id number] #### [facility] [address] [place] [address] PT Coag (PPP) [Time] 10.3 second(s) Normal 9.4-12.5 [facility] Comment on above: Result Comment: 15 [...] ranges were obtained from a study by behzad Ling prepared from 1437 samples obtained at 7 different centers using the same coagulation reagent and instrumentation as [facility]. Currently there are no coagulation studies available worldwide for children to 14 days, and no normal ranges. Performed By: #### 1 [id number] #### [facility] [address] [place] [address] Pre-Arrival Noteon Pre-Arrival Note Pre-Arrival Note Pre-Arrival Summary Name: , Current Date: 03/21/2024 13:41:57 EDT Gender: Date of : Age: Pre-Arrival Type: EMS ETA: 03/21/2024 14:06:00 EDT Primary Care Physician: Presenting Problem: STROKE Pre-Arrival User: Christen Aleman RN Referring Source: Location: [place] Completion Date/Time: 03/21/2024 13:36:00 [facility] Emergency Department Pre-Hospital Report Form Vital Signs: Pre-Hospital Report: Treatment in Route: Response to Treatment: Misc. Issues: Normal [facility] Troponin 0 Hr.on 03-21-2024 Troponin HS 3.50 pg/mL Low 10.10-27.10 [facility] Comment on above: Result Comment: The 95% CI (Confidence Interval) PPV (Positive Predictive Value) for myocardial infarction in females is 38 pg/mL, in males 51 pg/mL. The results should be used in conjunction with clinical conditions of myocardial infarction. (Access High Sensitivity Troponin I Instructions For Use, Pina Chinyere, March 2018) Performed By: #### 1 [id number] #### [facility] [address] [place] [address] UA with Cult Rflxon 03-21-20 24 Bilirubin Ql (U) Negative Normal Negative [facility] Comment on above: Performed By: #### 4 [id number] #### [facility] [address] [place] [address] Clarity (U) Clear Normal Clear [facility] Comment on above: Performed By: #### 4 [id number] #### [facility] [address] [place] [address] Color (U) Light-Yellow Normal Yellow [facility] Comment on above: Result Comment: Micr oscopic readings are only performed on those samples that meet specific criteria set forth by [facility]. Performed By: #### 4 [id number] #### [facility] [address] [place] [address] Glucose Ql (U) 4+ mg/dL Abnormal Negative [facility] Comment on above: Performed By: #### 4 [id number] #### [facility] [address] [place] [address] Hemoglobin Auto test strip (U) [Mass/Vol] Negative Normal Negative [facility] Comment on above: Performed By: #### 4 [id number] #### [facility] [address] [place] [address] Ketones Auto test strip Ql (U) 2+ mg/dL Abnormal Negative [facility] Comment on above: Performed By: #### 4 [id number] #### [facility] [address] [place] [address] Leukocyte esterase Auto test strip Ql (U) Negative Normal Negative [facility] Comment on above: Performed By: #### 4 [id number] #### [facility] [address] [place] [address] Nitrite Auto test strip Ql (U) Negative Normal Negative [facility] Comment on above: Performed By: #### 4 [id number] #### [facility] [address] [place] [address] pH (U) 5.5 [pH] Invalid Interpretation Code 5.0-9.0 [facility] Comment on above: Performed By: #### 4 [id number] #### [facility] [address] [place] [address] Protein Ql (U) Negative Normal Negative [facility] Comment on above: Performed By: #### 4 [id number] #### [facility] [address] [place] [address] Specific gravity (U) [Rel density] 1.020 Invalid Interpretation Code 1.005-1.030 [facility] Comment on above: Performed By: #### 4 [id number] #### [facility] [address] [place] [address] Urobilinogen (U) [Mass/Vol] Negative Normal Negative [facility] Comment on above: Performed By: #### 4 [id number] #### [facility] [address] [place] [address] Type of Urine collection method Clean Catch Normal [facility] Comment on above: Performed By: #### 4 [id number] #### [facility] [address] [place] [address] URINALYSISOrdered By: SYSTEM SYSTEM on 03-21-2024 Bilirubin Ql (U) Negative Normal Negativemg/ d L [facility] UA Auto SS Clarity (U) Clear (03/21/24 4:27 PM) Normal Clear [facility] UA Auto SS Color (U) Light-Yellow 1 (03/21/24 4:27 PM) Normal Yellow [facility] UA Auto SS Comment on above: Interpretive Data: M icroscopic readings are only performed on those samples that meet specific criteria set forth by [facility]. Glucose Ql (U) 4+ mg/dL Invalid Interpretation Code Negativemg/d L [facility] UA Auto SS Hemoglobin Auto test strip (U) [Mass/Vol] Negative Normal Negativemg/d L [facility] UA Auto SS Ketones Auto test strip Ql (U) 2+ mg/dL Invalid Interpretation Code Negativemg/d L [facility] UA Auto SS Leukocyte esterase Auto test strip Ql (U) Negative Normal NegativeLeu/ uL [facility] UA Auto SS Nitrite Auto test strip Ql (U) Negative Normal Negativemg/d L [facility] UA Auto SS pH (U) 5.5 *NA* (03/21/24 4:27 PM) Invalid Interpretation Code 5.0 - 9.0 [facility] UA Auto SS Protein Ql (U) Negative Normal Negativemg/d L [facility] UA Auto SS Specific gravity (U) [Rel density] 1.020 *NA* (03/21/24 4:27 PM) Invalid Interpretation Code 1.005 - 1.030 [facility]A Auto SS Urobilinogen (U) [Mass/Vol] Negative Normal Negativemg/d L [facility] UA Auto SS URINALYSISOrdered By: Yoel Hooker on 03-21-2024 UA Spec Desc Clean Catch (03/21/24 4:27 PM) Normal [facility] UA Auto SS XR Chest Single Viewon [...] clavicle. No acute osseous abnormality. Ordering Provider: Yoel Hooker FINAL REPORT Dictated: 03/21/2024 2:52 pm Tom Luna DO Signed (Electronic Signature): 03/21/2024 2:52 pm Signed by: Tom Luna DO Transcribed by: HARRY Technologist: SINA Technical Comments Radiation Dose: Ka,r in mGy = na DAP = na Normal [facility] eGFRon 03-21-2024 eGFR 99 mL/min/1.73 m2 Normal >=59 [facility] Comment on above: Order Comment: Order added by Discern Expert. Performed By: #### 1 [id number] #### [facility] [address] [place] [address] Consultation Noteon 10-29-19 Consultation Note [id number] Normal [facility] Superficial Wound Cultureon 10-08-2023 Superficial Wound [...] RESISTANT TO ALL B-LACTAM DRUGS. PERFORMED BY: [facility] [address] [place] [address] PATHOLOGIST DINING HOST GERARD GARCIA M.D. [facility] Comment on above: Performed By: #### C USUP #### [facility] [address] Provider Letteron 08-17-2023 Provider Letter August 17, 2023 CARI [address]ALE [address] [place] [address] : 1965 Dear Cari , We have been trying to reach you with no success. It is important that you return our call regarding your medication/appointmen t upon receiving this letter. Also, at the time of your call, please provide us with your current information. ;;f Thank you for your prompt attention to this matter. Sincerely, [facility] [address] [place] [address] [facility] Family Medicine Office/Clini c Noteon 05-28-2023 Family Medicine Office/Clinic Note HPI Staff Cari is a 58 year old female presenting to [facility] care Establish Care: History: Any previous diagnosis: Headache, Anxiety, HTN, HLD, Osteoarthritis, essential tremors, Type 2 DM, Colitis History of seeing any specialist: Neurologist for tremors doens't follow anymore, Dr Vitale in [place] When was your last doctors visit: Last provider: Dr Diallo Any recent labs: 6/23/23 and December 31 2022 A1c 7.2 Health Maintenance UTD: Colonoscopy: 10/2022 Colitis Mammogram: hasn't had one in a long time Pelvic/Pap: 3 years ago normal NEW: 10 Acute: Current issues/complaints: would like order for Angelina to [facility], refill hydroxyzine Menstrual cycle: pt states has [...] Thyroidectomy. M (more content not included)... Normal [facility] Comment on above: Result Comment: Elec tronically Signed By: Flora Khan\.br\Date and Time Signed: 05/28/23 11:31 EDT Ambulatory Visit Summaryon 1 Ambulatory Visit Summary CARI HALE :1965 Visit Date:05/25/2023 Ambulatory Visit Instructions Your Diagnosis Post-menopause bleeding Pelvic pain Breast cancer screening by mammogram Tremors of nervous system BMI 23.0-23.9, adult Smoker Type 2 diabetes mellitus with hyperlipidemia Hyperlipidemia, unspecified Your Care Team Attending Physician - Flora Khan Primary Care Physician - Renate DIALLO DO This Is Your Medications List [...] Follow-Up Appointments Wednesday 3:00 PM EST With: Flora Khan Where: [facility] Invalid Interpretation Code [address] [place] [address].br\ You Need to Complete the Following\.b r\ MA Mamm Screen w/CAD if perf and 3D Jace, 05/25/23, Routine, Order for Future Visit, Transport Mode: Ambulatory, Reason: Screening, No, Breast cancer screening by mammogram, pp_set_radio logy_subspec ialty, [facility] Hitesh\.br\ US Pelvis Non-OB Complete, 05/25/23, Routine, Order for future visit, Transport Mode: Ambulatory, Reason: Abnormal vaginal bleeding, No, Post-menopau se bleeding [facility] CHEMISTRYOrdered By: SYSTEM SYSTEM on 01-22-2023 [...] 60.4 % Normal 36.0 - 75.0 % FT [facility] Neutrophils/Leukocytes Auto (Bld) [Pure # fraction] 5.2 E9/L Normal 2.0 - 7.5 E9/L FT [facility] HEMATOLOGYOrdered By: Kimberly Box on 01-22-2023 Erythrocyte distribution width (RBC) [Ratio] 13.3 % Normal 10.9 - 14.2 % FT [facility] Hematocrit (Bld) [Volume fraction] 42.2 % Normal 34.0 - 46.0 % FT [facility] Hemoglobin (Bld) [Mass/Vol] 14.2 g/dL Normal 12.0 - 16.0 gm/dL FT [facility] MCH (RBC) [Entitic mass] 32.7 pg Normal 27.0 - 34.0 pg FT [facility] MCHC (RBC) [Mass/Vol] 33.7 g/dL Normal 31.4 - 36.0 gm/dL FT [facility] MCV (RBC) [Entitic vol] 97.2 fL Normal 80.0 - 100.0 fL FT [facility] Platelet mean volume (Bld) [Entitic vol] 7.8 fL Normal 6.4 - 10.8 fL FT [facility] Platelets (Bld) [#/Vol] 294.0 E9/L Normal 150.0 - 500.0 E9/L FT [facility] RBC (Bld) [#/Vol] 4.4 E12/L Normal 4.3 - 5.9 E12/L FT [facility] WBC corrected for nucl RBC Auto (Bld) [#/Vol] 8.7 E9/L Normal 4.0 - 11.0 E9/L [facility] Heme[facility]SS CHEMISTRYOrdered By: SYSTEM SYSTEM on 12-31-2022 [...] 75 mL/min/1.73 m2 Normal >=59mL/min/1 .73 m2 FT Chem S Globulin (S) [Mass/Vol] 3.6 g/dL [...] 9.1 E9/L High 2.0 - 7.5 E9/L [facility] HemeAutoSS HEMATOLOGYOrdered By: Carlin Martinez on 12-31-2022 Erythrocyte distribution width (RBC) [Ratio] 13.4 % Normal 10.9 - 14.2 % [facility] HemeAutoSS Hematocrit (Bld) [Volume fraction] 42.3 % Normal 34.0 - 46.0 % [facility] HemeAutoSS Hemoglobin (Bld) [Mass/Vol] 14.6 g/dL Normal 12.0 - 16.0 gm/dL [facility] HemeAutoSS MCH (RBC) [Entitic mass] 33.5 pg Normal 27.0 - 34.0 pg [facility] HemeAutoSS MCHC (RBC) [Mass/Vol] 34.6 g/dL Normal 31.4 - 36.0 gm/dL [facility] HemeAutoSS MCV (RBC) [Entitic vol] 97.1 fL Normal 80.0 - 100.0 fL [facility] HemeAutoSS Platelet mean volume (Bld) [Entitic vol] 8.0 fL Normal 6.4 - 10.8 fL [facility] HemeAutoSS Platelets (Bld) [#/Vol] 408.0 E9/L Normal 150.0 - 500.0 E9/L [facility] HemeAutoSS RBC (Bld) [#/Vol] 4.4 E12/L Normal 4.3 - 5.9 E12/L [facility] HemeAutoSS Sed Rate Automated 14 mm/h Normal 0 - 34 mm/hr [facility] HemeAutoSS WBC corrected for nucl RBC Auto (Bld) [#/Vol] 12.2 E9/L High 4.0 - 11.0 E9/L [facility] [facility] HemeAutoSS Glucose Glucometer (BldC) [M ass/Vol]Ordered By: Geovanny Schaffer on 10-13-2022 Glucose [Mass/Vol] 177 mg/dL [facility] Comment on above: Random Glucose Refer ence Range is dependent on time and content of last meal. Glucose of more than 200 mg/dL in a nonstressed, ambulatory subject supports the diagnosis of Diabetes Mellitus. HCG ( test) IAconradi d Ql (U)Ordered By: Geovanny Schaffer on 10-13-2022 HCG ( test) Ql (U) Negative [facility] No Panel InformationOrdered By: Geovanny Schaffer on 10-13-2022 Bedside Glucose Comment Glu2: cleaned meter [facility] CHEMISTRYOrdered By: SYSTEM SYSTEM on 06-03-2022 Albumin [Mass/Vol] 3.7 g/dL Normal 3.3 - 5.0 gm/dL [facility] Remisol Albumin/Globulin [Mass ratio] 1.1 {ratio} Normal 1.1 - 2.2 [facility] Remisol ALP [Catalytic activity/Vol] 84 [iU]/d Normal [...] 0.8 mg/dL Normal 0.5 - 1.3 mg/dL [facility] Remisol GFR/1.73 sq M.predicted among blacks MDRD (S/P/Bld) [Vol rate/Area] mL/min/1.73 m2 Normal >=59mL/min/1 .73 m2 [facility] S GFR/1.73 sq M.predicted among non-blacks [...] - 7.5 E9/L [facility] HemeAutoSS HEMATOLOGYOrdered By: Braina Machuca on 06-03-2022 Erythrocyte distribution width (RBC) [...] 10.5 E9/L Normal 4.0 - 11.0 E9/L [facility] HemeAutoSS CBC AUTO DIFFon 01-15-2022 BASO # 0.1 103/ul Normal 0.0-0.1 [facility] Comment on above: Performed By: #### A 1C #### [facility] [address] [address] [address] Jesus Lunsford Basophils/100 WBC (Bld) 0.6 % Normal 0.2-2.0 [facility] Comment on above: Performed By: #### A 1C #### [facility] [address] [address] [address] Jesus Lunsford EO # 0.2 103/ul Normal 0.0-0.7 [facility] Comment on above: Performed By: #### A 1C #### [facility] [address] [address] [address] Jesus Lunsford Eosinophils/100 WBC (Bld) 1.3 % Normal 0.9-7.0 [facility] Comment on above: Performed By: #### A 1C #### [facility] [address] [address] [address] Jesus Lunsford Erythrocyte distribution width (RBC) [Ratio] 14.5 % Normal 11.0-15.0 [facility] Comment on above: Performed By: #### A 1C #### [facility] [address] [address] [address] Jesus Lunsford Hematocrit (Bld) [Volume fraction] 36.8 % Normal 36.0-48.0 [facility] Comment on above: Performed By: #### A 1C #### [facility] [address] [address] [address] Jesus Lunsford Hemoglobin (Bld) [Mass/Vol] 12.2 g/dL Normal 12.0-16.0 [facility] Comment on above: Performed By: #### A 1C #### [facility] [address] [address] [address] Jesus Lunsford IG # 0.09 10e3/ul Critically high 0.00-0.03 [facility] Comment on above: Performed By: #### A 1C #### [facility] [address] [place] [address] Dr. Jesus Lunsford IG % 0.7 % Critically high 0.0-0.5 [facility] Comment on above: Performed By: #### A 1C #### [facility] [address] [place] [address] Dr. Jesus Lunsford LYMPH # 2.9 103/ul Normal 1.2-3.8 [facility] Comment on above: Performed By: #### A 1C #### [facility] [address] [place] [address] Dr. Jesus Lunsford Lymphocytes/100 WBC (Bld) 22.4 % Normal 20.5-60.0 [facility] Comment on above: Performed By: #### A 1C #### [facility] [address] [place] [address] Dr. Jesus Lunsford MANUAL DIFF REQ NO Normal [facility] Comment on above: Performed By: #### A 1C #### [facility] [address] [place] [address] Dr. Jesus Lunsford MCH (RBC) [Entitic mass] 32.4 pg Normal 26.7-34.0 [facility] Comment on above: Performed By: #### A 1C #### [facility] [address] [place] [address] Dr. Jesus Lunsford MCHC (RBC) [Mass/Vol] 33.2 g/dL Normal 29.9-35.2 [facility] Comment on above: Performed By: #### A 1C #### [facility] [address] [place] [address] Dr. Jesus Lunsford MCV (RBC) [Entitic vol] 97.9 fL Normal 81.0-99.0 [facility] Comment on above: Performed By: #### A 1C #### [facility] [address] [place] [address] Dr. Jesus Lunsford MONO # 1.6 103/ul Critically high 0.3-0.8 [facility] Comment on above: Performed By: #### A 1C #### [facility] [address] [address] [address] Jesus Lunsford Monocytes/100 WBC (Bld) 12.4 % Critically high 1.7-12.0 [facility] Comment on above: Performed By: #### A 1C #### [facility] [address] [address] [address] Jesus Lunsford NEUT # 8.0 103/ul Critically high 1.4-6.[address] [facility] Comment on above: Performed By: #### A 1C #### [facility] [address] [address] [address] Jesus Lunsford Neutrophils/100 WBC (Bld) 62.6 % Normal 43.0-75.0 [facility] Comment on above: Performed By: #### A 1C #### [facility] [address] [place] [address] Dr. Jesus Lunsford Platelet mean volume (Bld) [Entitic vol] 10.0 fL Normal 9.5-13.5 [facility] Comment on above: Performed By: #### A 1C #### [facility] [address] [address] [address] Jesus Lunsford PLT 233 103/ul Normal 150-450 [facility] Comment on above: Performed By: #### A 1C #### [facility] [address] [address] [address] Jesus Lunsford RBC 3.76 106/ul Critically low 4.20-5.[address] [facility] Comment on above: Performed By: #### A 1C #### [facility] [address] [address] [address] Jesus Lunsford WBC 12.8 103/ul Critically high 4.0-11.0 [facility] Comment on above: Performed By: #### A 1C #### [facility] [address] [address] [address] Jesus Lunsford DRUG SCREEN RAPID (URINE)on 01-15-2022 AMP Negative Normal NEGATIVE [facility] Comment on above: Performed By: #### D RUGRPD #### [facility] [address] [place] [address] Dr. Jesus Lunsford BAR Negative Normal NEGATIVE [facility] Comment on above: Performed By: #### D RUGRPD #### [facility] [address] [place] [address] Dr. Jesus Lunsford BUP Negative Normal NEGATIVE [facility] Comment on above: Performed By: #### D RUGRPD #### [facility] [address] [place] [address] Dr. Jesus Lunsford BZO Positive Abnormal NEGATIVE [facility] Comment on above: Performed By: #### D RUGRPD #### [facility] [address] [place] [address] Dr. Jesus Lunsford VENU Negative Normal NEGATIVE [facility] Comment on above: Performed By: #### D RUGRPD #### [facility] [address] [place] [address] Dr. Jesus Lunsford CUT-OFFS SEE BELOW Normal [facility] Comment on above: Result Comment: AMP (Amphetamine): 500ng/mL, BAR (Barbituates): 200 ng/mL, BZO (Benzodiazepines): 150 ng/mL, BUP (Buprenorphine): 10 ng/mL, VENU (Cocaine): 150 ng/mL, mAMP (Methamphetamine): 500 ng/mL, MTD (Methadone): 200 ng/mL, OPI (Opiates): 100 ng/mL, OXY (Oxycodone): 100 ng/mL, PCP (Phencyclidine): 25 ng/mL, PPX (Propoxyphene): 300 ng/mL, THC (Cannabinoids): 50 ng/mL, TCA (Trycyclic Antidepressants): 300 ng/mL Performed By: #### D RUGRPD #### [facility] [address] [place] [address] Dr. Jesus Lunsford DRUG CUT HEADER DRUG CLASS TEST SYSTEM CUT-OFF CONCENTRATIONS ARE FOLLOWS: Normal [facility] Comment on above: Performed By: #### D RUGRPD #### [facility] [address] [place] [address] Dr. Jesus Lunsford mAMP Negative Normal NEGATIVE [facility] Comment on above: Performed By: #### D RUGRPD #### [facility] [address] [address] [address] Jesus Lunsford MTD Negative Normal NEGATIVE [facility] Comment on above: Performed By: #### D RUGRPD #### [facility] [address] [address] [address] Jesus Lunsford OPI Positive Abnormal NEGATIVE [facility] Comment on above: Performed By: #### D RUGRPD #### [facility] [address] [address] [address] Jesus Lunsford OXY Positive Abnormal NEGATIVE [facility] Comment on above: Performed By: #### D RUGRPD #### [facility] [address] [place] [address] Dr. Jesus Lunsford PCP Negative Normal NEGATIVE [facility] Comment on above: Performed By: #### D RUGRPD #### [facility] [address] [place] [address] Dr. Jesus Lunsford PPX Negative Normal NEGATIVE [facility] Comment on above: Performed By: #### D RUGRPD #### [facility] [address] [address] [address] Jesus Lunsford TCA Negative Normal NEGATIVE [facility] Comment on above: Performed By: #### D RUGRPD #### [facility] [address] [place] [address] Dr. Jesus Lunsford THC Negative Normal NEGATIVE [facility] Comment on above: Performed By: #### D RUGRPD #### [facility] [address] [place] [address] Dr. Jesus Lunsford ECHOCARDIO M/2D COMPLETEon 0 01-15-2022 ECHOCARDIO M/2D COMPLETE Patient: CARI HALE Exam Date: 01/15/2022 : 1965 Gender:F Ordering : SHAIKH Aleisha SHELBY . Admission #: [id number] Family : Order #: [id number] CLICK HERE TO VIEW EXAM ECHOCARDIOGRAM REPORT [...] Area(A4C): 16.10 cm2 Left Atrium Systolic Volume(A2C): 72584 mm3 Left Atrium Systolic Volume(A4C): 80063 mm3 Mitral Valve MV E to A [...] Siddiqi M.D. on 01/15/2022 at 14:43 Normal [facility] GLYCOHEMOGLOBIN A1Con 2021 ADA RECOMMENDATION SEE BELOW Normal [facility] Comment on above: Result Comment: ADA RECOMMENDED LIMIT 4.0 - 6.0 ADA THERAPEUTIC TARGET < 7.0 ACTION SUGGESTED > 7.0 Performed By: #### A 1C #### [facility] [address] [place] [address] Dr. Jesus Lunsford Glucose [Mass/Vol] 166 mg/dL Normal [facility] Comment on above: Performed By: #### A 1C #### [facility] [address] [address] [address] Jesus Lunsford HbA1c (Bld) [Mass fraction] 7.4 % Critically high 4.5-6.2 [facility] Comment on above: Performed By: #### A 1C #### [facility] [address] [address] [address] Jesus Lunsford LIPID PROFILEon 01-15-2022 CHOL-HDL RATIO NORM SEE BELOW Normal [facility] Comment on above: Result Comment: 3.3 - 4.4 LOW RISK 4.4 - 7.1 AVERAGE RISK 7.1 - 11.0 MODERATE RISK >11.0 HIGH RISK Performed By: #### L IPID #### [facility] [address] [address] [address] Jesus Lunsford Cholesterol [Mass/Vol] 144 mg/dL Normal <=200 [facility] Comment on above: Performed By: #### L IPID #### [facility] [address] [address] [address] Jesus Lunsford Cholesterol in HDL [Mass/Vol] 69 mg/dL Critically high 40-60 [facility] Comment on above: Performed By: #### L IPID #### [facility] [address] [address] [address] Jesus Lunsford Cholesterol in LDL [Mass/Vol] 67.6 mg/dL Normal [facility] Comment on above: Performed By: #### L IPID #### [facility] [address] [address] [address] Jesus Lunsford Cholesterol.total/Chol esterol in HDL [Mass ratio] 2.1 {ratio} Normal [facility] Comment on above: Performed By: #### L IPID #### [facility] [address] [address] [address] Jesus Lunsford HDL NORMAL > or = 60 mg/dl - LO W CARDIOVASCULAR RISK <40 mg/dl - HIGH CARDIOVASCULAR RISK Normal [facility] Comment on above: Performed By: #### L IPID #### [facility] [id number] Jseus Lunsford LDL CALC NORMAL SEE BELOW Normal [facility] Comment on above: Result Comment: <100 mg/dl OPTIMAL 100 - 129 mg/dl NEAR OR ABOVE OPTIMAL 130 - 159 mg/dl BORDERLINE HIGH 160 - 189 mg/dl HIGH >190 mg/dl VERY HIGH Performed By: #### L IPID #### [facility] [address] [address] [address] Jesus Lunsford Triglyceride [Mass/Vol] 37 mg/dL Normal <=150 [facility] Comment on above: Performed By: #### L IPID #### [facility] [address] [address] [address] Jesus Lunsford VLDL CALC 7.4 mg/dL Normal [facility] Comment on above: Performed By: #### L IPID #### [facility] [address] [address] [address] Jesus Lunsford POINT OF CARE GLUCOSEon 12-31 Glucose [Mass/Vol] 58 mg/dL Critically low 74-106 [facility] Comment on above: Performed By: #### C VDTBH #### [facility] [address] [place] [address] Dr. Jesus Lunsford Glucose [Mass/Vol] 104 mg/dL Normal 74-106 [facility] Comment on above: Performed By: #### A 1C #### [facility] [address] [place] [address] Dr. Jesus Lunsford PROF CHEM 8 (BAS METB)on Anion gap [Moles/Vol] 11.2 mmol/L Normal [facility] Comment on above: Performed By: #### A 1C #### [facility] [address] [place] [address] Dr. Jesus Lunsford Calcium [Mass/Vol] 8.0 mg/dL Critically low 8.5-10.1 [facility] Comment on above: Performed By: #### A 1C #### [facility] [address] [place] [address] Dr. Jesus Lunsford Chloride [Moles/Vol] 99 mmol/L Normal 98-107 [facility] Comment on above: Performed By: #### A 1C #### [facility] [address] [place] [address] Dr. Jesus Lunsford CO2 [Moles/Vol] 27.5 mmol/L Normal 21.0-32.0 [facility] Comment on above: Performed By: #### A 1C #### [facility] [address] [place] [address] Dr. Jesus Lunsford Creatinine [Mass/Vol] 0.84 mg/dL Normal 0.55-1.02 [facility] Comment on above: Performed By: #### A 1C #### [facility] [address] [place] [address] Dr. Jesus Lunsford EGFR-AF WELSH >60 Normal >=60 [facility] Comment on above: Performed By: #### A 1C #### [facility] [address] [place] [address] Dr. Jesus Lunsford EGFR-NON AF WELSH >60 Normal >=60 [facility] Comment on above: Performed By: #### A 1C #### [facility] [address] [place] [address] Dr. Jesus Lunsford Glucose [Mass/Vol] 94 mg/dL Normal 74-106 [facility] Comment on above: Performed By: #### A 1C #### [facility] [address] [place] [address] Dr. Jesus Lunsford Potassium [Moles/Vol] 4.7 mmol/L Normal 3.5-5.1 [facility] Comment on above: Performed By: #### A 1C #### [facility] [address] [place] [address] Dr. Jesus Lunsford Sodium [Moles/Vol] 133 mmol/L Critically low 136-145 [facility] Comment on above: Performed By: #### A 1C #### [facility] [address] [place] [address] Dr. Jesus Lunsford Urea nitrogen [Mass/Vol] 12.0 mg/dL Normal 7.0-18.0 [facility] Comment on above: Performed By: #### A 1C #### [facility] [address] [place] [address] Dr. Jesus Lunsford Urea nitrogen/Creatinine [Mass ratio] 14.3 mg/mg Normal [facility] Comment on above: Performed By: #### A 1C #### [facility] [address] [place] [address] Dr. Jesus Lunsford BNPon 01-14-2022 Natriuretic peptide B (Bld) [Mass/Vol] 721.0 pg/mL Normal <=900.0 [facility] Comment on above: Performed By: #### H STROPN, BNP, BMP #### [facility] [address] [place] [address] Dr. Jesus Lunsford CBC AUTO DIFFon 01-14-2022 BASO # 0.1 103/ul Normal 0.0-0.1 [facility] Comment on above: Performed By: #### C BC #### [facility] [address] [place] [address] Dr. Jesus Lunsford Basophils/100 WBC (Bld) 0.6 % Normal 0.2-2.0 [facility] Comment on above: Performed By: #### C BC #### [facility] [address] [place] [address] Dr. Jesus Lunsford EO # 0.2 103/ul Normal 0.0-0.7 [facility] Comment on above: Performed By: #### C BC #### [facility] [address] [place] [address] Dr. Jesus Lunsford Eosinophils/100 WBC (Bld) 1.3 % Normal 0.9-7.0 [facility] Comment on above: Performed By: #### C BC #### [facility] [address] [place] [address] Dr. Jesus Lunsford Erythrocyte distribution width (RBC) [Ratio] 14.2 % Normal 11.0-15.0 [facility] Comment on above: Performed By: #### C BC #### [facility] [address] [place] [address] Dr. Jesus Lunsford Hematocrit (Bld) [Volume fraction] 37.8 % Normal 36.0-48.0 [facility] Comment on above: Performed By: #### C BC #### [facility] [address] [place] [address] Dr. Jesus Lunsford Hemoglobin (Bld) [Mass/Vol] 13.0 g/dL Normal 12.0-16.0 [facility] Comment on above: Performed By: #### C BC #### [facility] [address] [address] [address] Jesus Lunsford IG # 0.08 10e3/ul Critically high 0.00-0.03 [facility] Comment on above: Performed By: #### C BC #### [facility] [address] [place] [address] Dr. Jesus Lunsford IG % 0.6 % Critically high 0.0-0.[address] [facility] Comment on above: Performed By: #### C BC #### [facility] [address] [place] [address] Dr. Jesus Lunsford LYMPH # 2.0 103/ul Normal 1.2-3.8 [facility] Comment on above: Performed By: #### C BC #### [facility] [address] [place] [address] Dr. Jesus Lunsford Lymphocytes/100 WBC (Bld) 16.0 % Critically low 20.5-60.0 [facility] Comment on above: Performed By: #### C BC #### [facility] [address] [place] [address] Dr. Jesus Lunsford MANUAL DIFF REQ NO Normal [facility] Comment on above: Performed By: #### C BC #### [facility] [address] [place] [address] Dr. Jesus Lunsford MCH (RBC) [Entitic mass] 32.7 pg Normal 26.7-34.0 [facility] Comment on above: Performed By: #### C BC #### [facility] [address] [place] [address] Dr. Jesus Lunsford MCHC (RBC) [Mass/Vol] 34.4 g/dL Normal 29.9-35.2 [facility] Comment on above: Performed By: #### C BC #### [facility] [address] [place] [address] Dr. Jesus Lunsford MCV (RBC) [Entitic vol] 95.2 fL Normal 81.0-99.0 [facility] Comment on above: Performed By: #### C BC #### [facility] [address] [place] [address] Dr. Jesus Lunsford MONO # 0.9 103/ul Critically high 0.3-0.[address] [facility] Comment on above: Performed By: #### C BC #### [facility] [address] [address] [address] Jesus Lunsford Monocytes/100 WBC (Bld) 7.3 % Normal 1.7-12.0 [facility] Comment on above: Performed By: #### C BC #### [facility] [address] [address] [address] Jesus Lunsford NEUT # 9.3 103/ul Critically high 1.4-6.[address] [facility] Comment on above: Performed By: #### C BC #### [facility] [address] [address] [address] Jesus Lunsford Neutrophils/100 WBC (Bld) 74.2 % Normal 43.0-75.0 [facility] Comment on above: Performed By: #### C BC #### [facility] [address] [address] [address] Jesus Lunsford Platelet mean volume (Bld) [Entitic vol] 9.6 fL Normal 9.5-13.5 [facility] Comment on above: Performed By: #### C BC #### [facility] [address] [address] [address] Jesus Lunsford PLT 277 103/ul Normal 150-450 [facility] Comment on above: Performed By: #### C BC #### [facility] [address] [address] [address] Jesus Lunsford WBC 12.5 103/ul Critically high 4.0-11.0 [facility] Comment on above: Performed By: #### C BC #### [facility] [address] [address] HEAD WO CONon [...] by: JESSE FIELDS Date: 2022-01-14 17:25 Normal [facility] CTA CHEST WO W CONon 022 CTA [...] by: JESSE FIELDS Date: 2022-01-14 13:55 Normal [facility] Covid-19 PCR (CVDTB)on 12-31 SARS-CoV-2 (COVID-19) RNA EFRAIN+probe Ql (Unsp spec) Not detected Normal NOT DETECTED [facility] Comment on above: Result Comment: When diagnostic [...] for this test is supported by the [place] of [employer] and Human Service's declaration that [...] used). Performed By: #### C VDTB #### [facility] [address] [place] [address] Dr. Jesus Lunsford D-DIMERon 01-14-2022 D-DIMER 0.60 mg/L FEU Critically high <=0.59 [facility] Comment on above: Performed By: #### C VDTBH #### [facility] [address] [place] [address] Dr. Jesus Lunsford D-DIMER COMMENTS SEE BELOW Normal [facility] Comment on above: Result Comment: Incr [...] hospitalization. Performed By: #### C VDTBH #### [facility] [address] [place] [address] Dr. Jesus Lunsford ETHANOL (BLD ALC)on 06-15-20 22 ALC NOTE NOTE: 80 mg/dl is e legal limit for a blood alcohol level Normal [facility] Comment on above: Performed By: #### A 1C #### [facility] [address] [place] [address] Dr. Jesus Lunsford Ethanol [Mass/Vol] mg/dL Normal [facility] Comment on above: Performed By: #### A 1C #### [facility] [address] [place] [address] Dr. Jesus Lunsford POINT OF CARE GLUCOSEon 12-31 Glucose [Mass/Vol] 215 mg/dL Critically high 74-106 [facility] Comment on above: Performed By: #### A 1C #### [facility] [address] [place] [address] Dr. Jesus Lunsford Glucose [Mass/Vol] 51 mg/dL Critically low 74-106 [facility] Comment on above: Result Comment: Will Repeat Test Performed By: #### C VDTBH #### [facility] [address] [place] [address] Dr. Jesus Lunsford Glucose [Mass/Vol] 263 mg/dL Critically high -106 [facility] Comment on above: Performed By: #### C VDTBH #### [facility] [address] [place] [address] Dr. Jesus Lunsford PROF CHEM 8 (BAS METB)on Anion gap [Moles/Vol] 12.6 mmol/L Normal [facility] Comment on above: Performed By: #### H STROPN, BNP, BMP #### [facility] [address] [place] [address] Dr. Jesus Lunsford Calcium [Mass/Vol] 8.2 mg/dL Critically low 8.5-10.1 [facility] Comment on above: Performed By: #### H STROPN, BNP, BMP #### [facility] [address] [place] [address] Dr. Jesus Lunsford Chloride [Moles/Vol] 102 mmol/L Normal 98-107 [facility] Comment on above: Performed By: #### H STROPN, BNP, BMP #### [facility] [address] [address] [address] Jesus Lunsford CO2 [Moles/Vol] 25.5 mmol/L Normal 21.0-32.0 [facility] Comment on above: Performed By: #### H STROPN, BNP, BMP #### [facility] [address] [address] [address] Jesus Lunsford Creatinine [Mass/Vol] 0.71 mg/dL Normal 0.55-1.02 [facility] Comment on above: Performed By: #### H STROPN, BNP, BMP #### [facility] [address] [address] [address] Jesus Lunsford EGFR-AF WELSH >60 Normal >=60 [facility] Comment on above: Performed By: #### H STROPN, BNP, BMP #### [facility] [address] [address] [address] Jesus Lunsford EGFR-NON AF WELSH >60 Normal >=60 [facility] Comment on above: Performed By: #### H STROPN, BNP, BMP #### [facility] [address] [address] [address] Jesus Lunsford Glucose [Mass/Vol] 145 mg/dL Critically high 74-106 [facility] Comment on above: Performed By: #### H STROPN, BNP, BMP #### [facility] [address] [address] [address] Jesus Lunsford Potassium [Moles/Vol] 4.1 mmol/L Normal 3.5-5.1 [facility] Comment on above: Performed By: #### H STROPN, BNP, BMP #### [facility] [address] [address] [address] Jesus Lunsford Sodium [Moles/Vol] 136 mmol/L Normal 136-145 [facility] Comment on above: Performed By: #### H STROPN, BNP, BMP #### [facility] [address] [address] [address] Jesus Lunsford Urea nitrogen [Mass/Vol] 6.0 mg/dL Critically low 7.0-18.0 [facility] Comment on above: Performed By: #### H STROPN, BNP, BMP #### [facility] [address] [address] [address] Jesus Lunsford Urea nitrogen/Creatinine [Mass ratio] 8.5 mg/mg Normal [facility] Comment on above: Performed By: #### H STROPN, BNP, BMP #### [facility] [address] [address] [address] Jesus Lunsford TROPONIN, HIGH SENSITIVITYon 01-14-2022 HSTROP 9.4 pg/mL Normal 4.0-51.3 [facility] Comment on above: Result Comment: CUT- OFF POINTS HAVE BEEN ESTABLISHED BASED ON THE FOURTH UNIVERSAL DEFINITIONS OF MYOCARDIAL INFARCTION. THE UPPER REFERENCE LIMIT (URL) OF TROPONIN, DEFINED THE 99TH PERCENTILE OF cTnI DISTRIBUTION IN A REFERENCE POPULATION, HAS BEEN CONFIRMED THE DECISION THRESHOLD FOR [place] DIAGNOSIS. Performed By: #### H STROPN #### [facility] [address] [place] [address] Dr. Jesus Lunsford HSTROP 9.0 pg/mL Normal 4.0-51.3 [facility] Comment on above: Result Comment: CUT- OFF POINTS HAVE BEEN ESTABLISHED BASED ON THE FOURTH UNIVERSAL DEFINITIONS OF MYOCARDIAL INFARCTION. THE UPPER REFERENCE LIMIT (URL) OF TROPONIN, DEFINED THE 99TH PERCENTILE OF cTnI DISTRIBUTION IN A REFERENCE POPULATION, HAS BEEN CONFIRMED THE DECISION THRESHOLD FOR NV DIAGNOSIS. Performed By: #### H STROPN #### [facility] [address] [place] [address] Dr. Jesus Lunsford HSTROP 9.3 pg/mL Normal 4.0-51.3 [facility] Comment on above: Result Comment: CUT- OFF POINTS HAVE BEEN ESTABLISHED BASED ON THE FOURTH UNIVERSAL DEFINITIONS OF MYOCARDIAL INFARCTION. THE UPPER REFERENCE LIMIT (URL) OF TROPONIN, DEFINED THE 99TH PERCENTILE OF cTnI DISTRIBUTION IN A REFERENCE POPULATION, HAS BEEN CONFIRMED THE DECISION THRESHOLD FOR NV DIAGNOSIS. Performed By: #### H STROPN, BNP, BMP #### [facility] [address] [address] [address] Jesus Lunsford XR CHEST 1 Von [...] by: SILVA ALMANZAR Date: 2022-01-14 12:13 Normal [facility] Vital Signs Date Time Vital Sign Value Performing Clinician Facility 03-22-2024 17:21-0400 Hourly Rounding [employer] [facility] 03-22-2024 17:21-0400 Promise to Return [employer] [facility] 03-22-2024 16:00-0400 Hourly Rounding [employer] [facility] 03-22-2024 16:00-0400 Promise to Return [employer] [facility] 03-22-2024 15:35-0400 Heart rate 86 /min Lee Juan [facility] 03-22-2024 15:35-0400 Respiratory rate 20 /min [employer] [facility] 03-22-2024 15:28-0400 Heart rate 85 /min Lee Juan [facility] 03-22-2024 15:28-0400 Respiratory rate 20 /min [employer] [facility] 03-22-2024 15:28-0400 SaO2% (BldA) [Mass fraction] 95 % [employer] [facility] 03-22-2024 15:00-0400 Hourly Rounding [employer] [facility] 03-22-2024 15:00-0400 Promise to Return Lee Martinez [facility] 03-22-2024 12:39-0400 Heart rate 78 /min Lee Martinez [facility] 03-22-2024 12:39-0400 SaO2% (BldA) [Mass fraction] 95 % Lee Martinez [facility] 03-22-2024 12:39-0400 Diastolic blood pressure 68 mm[Hg] Lee Martinez [facility] 03-22-2024 12:39-0400 Mean blood pressure 80 mm[Hg] Lee Newtoner [facility] 03-22-2024 12:39-0400 Systolic blood pressure 104 mm[Hg] Lee Martinez [facility] 03-22-2024 12:39-0400 Body temperature 98.06 [degF] Lee Martinez [facility] 03-22-2024 12:02-0400 Respiratory rate 20 /min Lee Martinez [facility] 03-22-2024 08:16-0400 SaO2% (BldA) [Mass fraction] 96 % Lee Martinez [facility] 03-22-2024 08:06-0400 Body temperature 97.88 [degF] Lee Hathawaycker [facility] 03-22-2024 08:05-0400 Diastolic blood pressure 77 mm[Hg] Lee Newtoner [facility] 03-22-2024 08:05-0400 Mean blood pressure 90 mm[Hg] Lee Newtoner [facility] 03-22-2024 08:05-0400 Systolic blood pressure 117 mm[Hg] Lee Newtoner [facility] 03-22-2024 03:50-0400 Diastolic blood pressure 78 mm[Hg] Lee Newtoner [facility] 03-22-2024 03:50-0400 Systolic blood pressure 127 mm[Hg] Lee Newtoner [facility] 03-22-2024 01:59-0400 Mean blood pressure 84 mm[Hg] Lee Newtoner [facility] 03-22-2024 01:59-0400 Body temperature 98.42 [degF] Lee Newtoner [facility] 03-21-2024 19:59-0400 Body temperature 98.24 [degF] Lee Newtoner [facility] 03-21-2024 19:59-0400 Heart rate 99 /min Lee Newtoner [facility] 03-21-2024 19:03-0400 Mean blood pressure 102 mm[Hg] Lee Newtoner [facility] 03-21-2024 19:03-0400 Respiratory rate 15 /min Lee Newtoner [facility] 03-21-2024 17:37-0400 Mean blood pressure 95 mm[Hg] Lee Newtoner [facility] 03-21-2024 17:37-0400 Respiratory rate 16 /min Lee Newtoner [facility] 03-21-2024 16:13-0400 gluc 281 mg/dL Lee Newtoner [facility] 03-21-2024 16:00-0400 Mean blood pressure 75 mm[Hg] Lee Martinez [facility] 03-21-2024 14:09-0400 gluc 83 mg/dL Lee Martinez [facility] 03-21-2024 14:09-0400 gluc Lee Martinez [facility] 03-21-2024 13:54-0400 Body temperature 98.42 [degF] Lee Martinez [facility] 03-21-2024 13:54-0400 Heart rate 101 /min Lee Martinez [facility] 03-21-2024 13:39-0400 gluc 83 mg/dL Lee Martinez [facility] 03-16-2024 10:54-0400 Body height 157.5 cm Cruizto Phelps MD Work Phone: [facility] 03-16-2024 10:54-0400 Body mass index (BMI) [Ratio] 23.41 kg/m2 Cruzito Phelps MD Work Phone: [facility] 03-16-2024 10:54-0400 Body weight 58.06 kg Cruzito Phelps MD Work Phone: [facility] 03-16-2024 10:54-0400 Diastolic blood pressure 84 mm[Hg] Cruzito Phelps MD Work Phone: [facility] 03-16-2024 10:54-0400 Heart rate 125 /min Cruzito Phelps MD Work Phone: [facility] 03-16-2024 10:54-0400 SaO2% (BldA) [Mass fraction] 96 % Cruzito Phelps MD Work Phone: [facility] 03-16-2024 10:54-0400 Systolic blood pressure 127 mm[Hg] Cruzito Phelps MD Work Phone: [facility] 02-14-2024 16:22-0400 Body height 157.5 cm [facility] 02-14-2024 16:22-0400 Body mass index (BMI) [Ratio] 23.41 kg/m2 [facility] 02-14-2024 16:22-0400 Body weight 58.06 kg [facility] 02-10-2024 11:21-0400 Body height 157.5 cm Cruzito Phelps MD Work Phone: [facility] 02-10-2024 11:21-0400 Body mass index (BMI) [Ratio] 23.67 kg/m2 Cruzito Phelps MD Work Phone: [facility] 02-10-2024 11:21-0400 Body weight 58.7 kg Cruzito Phelps MD Work Phone: [facility] 01-13-2024 10:54-0400 Body weight 58.42 kg Cruzito Phelps MD Work Phone: [facility] 01-13-2024 10:54-0400 Diastolic blood pressure 83 mm[Hg] Cruzito Phelps MD Work Phone: [facility] 01-13-2024 10:54-0400 Heart rate 90 /min Cruzito Phelps MD Work Phone: [facility] 01-13-2024 10:54-0400 Systolic blood pressure 141 mm[Hg] Cruzito Phelps MD Work Phone: [facility] 12-31-2022 15:43-0400 Blood Pressure Location Renate DIALLO [facility] 12-31-2022 15:43-0400 Diastolic blood pressure 66 mm[Hg] Renate DIALLO [facility] 12-31-2022 15:43-0400 Heart rate 83 /min Renate DIALLO [facility] 12-31-2022 15:43-0400 Respiratory rate 16 /min Renate YOEL [facility] 12-31-2022 15:43-0400 SaO2% (BldA) [Mass fraction] 96 % Renate DIALLO [facility] 12-31-2022 15:43-0400 Systolic blood pressure 120 mm[Hg] Renate DIALLO [facility] 12-31-2022 15:07-0400 Blood Pressure Location Renate DIALLO [facility] 12-31-2022 15:07-0400 Body temperature 97.52 [degF] Renate DIALLO [facility] 12-31-2022 15:07-0400 Diastolic blood pressure 66 mm[Hg] Renate DIALLO [facility] 12-31-2022 15:07-0400 Heart rate 83 /min Renate DIALLO [facility] 12-31-2022 15:07-0400 SaO2% (BldA) [Mass fraction] 96 % Renate DIALLO [facility] 12-31-2022 15:07-0400 Systolic blood pressure 120 mm[Hg] Renate DIALLO [facility] 10-13-2022 15:03-0400 Diastolic blood pressure 62 mm[Hg] DO Renate Diallo Work Phone: [facility] 10-13-2022 15:03-0400 Heart rate 74 /min DO Renate Diallo Work Phone: [facility] 10-13-2022 15:03-0400 Respiratory rate 16 /min DO Renate Diallo Work Phone: [facility] 10-13-2022 15:03-0400 SaO2% (BldA) [Mass fraction] 99 % DO Renate Diallo Work Phone: [facility] 10-13-2022 15:03-0400 Systolic blood pressure 122 mm[Hg] DO Renate Diallo Work Phone: [facility] 10-13-2022 13:16-0400 Body height 157.48 cm DO Renate Diallo Work Phone: [facility] 10-13-2022 13:16-0400 Body temperature 98.2 [degF] DO Renate Diallo Work Phone: [facility] 10-13-2022 13:16-0400 Body weight 58.96 kg DO Renate Diallo Work Phone: [facility] 05-12-2022 15:37-0400 Blood Pressure Location Renate DIALLO [facility] 05-12-2022 15:37-0400 Body temperature 97.7 [degF] Renate DIALLO [facility] 05-12-2022 15:37-0400 Diastolic blood pressure 80 mm[Hg] Renate DIALLO [facility] 05-12-2022 15:37-0400 Heart rate 108 /min Renate DIALLO [facility] 05-12-2022 15:37-0400 SaO2% (BldA) [Mass fraction] 98 % Renate DIALLO [facility] 05-12-2022 15:37-0400 Systolic blood pressure 136 mm[Hg] Renate DIALLO [facility] 10-29-2021 16:15-0400 Body weight 58.97 kg Geovanny Schaffer Other [employer] Other Encounters Encounter Date Encounter Type Care Provider Facility Start: 08-16-2024 End: 08-18-2024 ambulatory RENATE S [facility] Start: 08-16-2024 End: 08-18-2024 Subsequent hospital visit by physician Samuel Villarreal [facility] Imaging CT Scan Comment on above: Mass of left lung; Abnormal CT scan, chest Start: 03-23-2024 End: 03-29-2024 Refill Cruzito Phelps MD Work Phone: [facility] Start: 03-23-2024 End: 03-31-2024 ambulatory [facility] Facility::[id number] Start: 03-21-2024 End: 03-22-2024 ambulatory Lee Martinez Facility:[facility] Start: 03-21-2024 Emergency department patient visit Han Olivera Facility:[facility] Start: 03-21-2024 End: 03-22-2024 Observation Lee Martinez [facility] Start: 03-16-2024 End: 03-16-2024 Office outpatient visit 15 minutes Cruzito Phelps MD Work Phone: [facility] Comment on above: 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 ([facility]) (Primary Dx); Cigarette smoker motivated to quit; Stenosis of aorta Start: 03-15-2024 End: 03-15-2024 ambulatory Flora L José Miguel Facility:[facility] [facility] Start: 02-24-2024 End: 02-24-2024 Orders Only [facility] Comment on above: PVD (peripheral vasc ular disease) ([facility]) (Primary Dx); 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 ([facility]) Start: 02-23-2024 End: 02-23-2024 Refill [facility] Start: 02-14-2024 End: 02-14-2024 Admission to [facility] Phone Call Provider 4 Ying Weeks [facility] Start: 02-10-2024 End: 02-10-2024 Office outpatient visit 25 minutes Cruzito Phelps MD Work Phone: [facility] Comment on above: 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 ([facility]) (Primary Dx); Cigarette smoker motivated to quit; Aortic valve stenosis, etiology of cardiac valve disease unspecified Start: 01-25-2024 End: 01-25-2024 Orders Only Cruzito Phelps MD Work Phone: [facility] Comment on above: PAD (peripheral phil ry disease) ([facility]) (Primary Dx) Start: 01-24-2024 End: 01-24-2024 Telephone encounter Cruzito Phelps MD Work Phone: [facility] Start: 01-13-2024 End: 01-13-2024 Telephone encounter Tre Bullock [facility] Comment on above: Med Refill Start: 01-13-2024 End: 01-13-2024 Office outpatient new 45 minutes Cruzito Phelps MD Work Phone: [facility] Comment on above: Cigarette smoker mot ivated to quit (Primary Dx); PVD (peripheral vascular disease) ([facility]); 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 ([facility]) Start: 01-03-2024 ambulatory Renate Monroe y:CECILIA Mancini Start: 10-08-2023 End: 10-08-2023 ambulatory Haylee Hinds Facility:[facility] Start: 09-24-2023 ambulatory Flora L José Miguel Facility: [facility] Ari Start: 09-15-2023 End: 09-15-2023 ambulatory Flora L José Miguel Facility:[facility] [place] Start: 07-28-2023 End: 07-28-2023 ambulatory Oren Jones Other [employer] Other Start: 07-28-2023 Telephone encounter [facility] Start: 06-09-2023 End: 06-09-2023 ambulatory Flora L José Miguel Facility:[facility] [place] [facility] Start: 05-25-2023 ambulatory Flora José Miguel Facility:[facility] Start: 05-25-2023 End: 05-25-2023 ambulatory Flora L José Miguel Facility:[facility] Start: 03-18-2023 End: 03-18-2023 ambulatory Oren Jones Other [employer] Other Start: 03-18-2023 Telephone encounter O[facility] Start: 02-16-2023 End: 02-16-2023 Patient encounter procedure MILO Janeth CAMPOS [facility] Start: 01-22-2023 End: 01-22-2023 Patient encounter procedure Renate DIALLO [facility] Start: 01-19-2023 End: 01-21-2023 Pre-admission assessment Renate DIALLO [facility] Start: 01-14-2023 End: 01-14-2023 ambulatory Oren Jones Other [employer] Other Start: 01-14-2023 Telephone encounter [facility] Start: 12-31-2022 End: 12-31-2022 Patient encounter procedure Renate DIALLO [facility] Start: 12-31-2022 End: 12-31-2022 Well adult monitoring check done Reante DIALLO [facility] Start: 11-18-2022 End: 11-18-2022 ambulatory Oren Jones Other [employer] Other Start: 11-18-2022 Telephone encounter O[facility] Start: 10-22-2022 End: 10-22-2022 ambulatory Geovanny Schaffer Other [employer] Other Start: 10-22-2022 Telephone encounter Geovanny BENNETT [facility] Start: 10-14-2022 End: 10-14-2022 ambulatory Geovanny Schaffer Other [employer] Other Start: 10-14-2022 Telephone encounter Geovanny BENNETT [facility] Start: 10-13-2022 End: 10-13-2022 Admission to same day surgery center DO Renate Diallo Work Phone: [facility] Work Phone: Start: 10-13-2022 End: 10-13-2022 ambulatory DO Renate Diallo Work Phone: [facility] Work Phone: Start: 09-22-2022 End: 09-22-2022 ambulatory Geovanny Schaffer Other [facility] [employer] Other Start: 09-22-2022 Telephone encounter Geovanny BENNETT [facility] Start: 06-03-2022 End: 06-03-2022 Patient encounter procedure Renate DIALLO [facility] Start: 05-12-2022 End: 05-12-2022 Patient encounter procedure Renate DIALLO [facility] Start: 01-14-2022 End: 01-15-[address] NONE LISTED REQUEST Facility: Start: 11-13-2021 End: 11-13-2021 ambulatory Geovanny Schaffer Other [email or web address] Other Start: 11-13-2021 Telephone encounter Geovanny BENNETT [facility] Start: 10-29-2021 End: 10-29-2021 ambulatory Geovanny Schaffer Other [facility] [employer] Other Start: 10-29-2021 [facility] new patient Geovanny Schaffer [facility] Procedures Date Procedure Procedure Detail Performing Clinician Start: 08-16-[address] attenuation skull base mid-thigh Renate Diallo DO Work Phone: Start: 10-13-2022 Flexible fiberoptic sigmoidoscopy DO Renate Diallo Work Phone: Start: 01-17-2018 Caudal CHAVO 1 Renate GR ANT Comment on above: 80% reflief for abou t 3 weeks. Start: 12-06-2017 caudal CHAVO 2 Renate GR ANT Comment on above: 80% relief for about 3 weeks Start: 01-17-2014 Local anesthetic fac et joint nerve block Renate DIALLO Comment on above: Right L3-S1 Start: 08-24-2013 Colonoscopy [employer] [facility]) Start: 07-17-2013 right small trigger finger release Renate DIALLO Start: 03-27-2013 Injection of nerve r oot of lumbar spine using fluoroscopic guidance Renate DIALLO Comment on above: Right L4-L5 Start: 12-23-2012 Epidural injection o f lumbar spine using fluoroscopic guidance Renate DIALLO Comment on above: L4-L5 Start: 07-25-2012 Epidural injection o f lumbar spine using fluoroscopic guidance Renate DIALLO Comment on above: L4-L5 Angioplasty of blood vessel Renate DIALLO Colonoscopy Renate DIALLO Decompression of med anabelle nerve Renate DIALLO Comment on above: B/L H/O Spinal surgery Renate GRIFFIN Release of trigger finger Renate DIALLO Thyroidectomy Renate DIALLO Vaccine refused by patient Vaccination not carried out Renate DIALLO Vaccine refused by patient Vaccination not carried out Renate DIALLO Plan of Treatment Date Care Activity Detail Author Start: 07-18-2026 Screening for malign ant neoplasm of breast Breast cancer screen [facility] Start: 10-23-2025 Screening for malign ant neoplasm of cervix [facility] Start: 08-16-2025 Screening for malign ant neoplasm of lung Lung Cancer Screening &/or Counseling [facility] Start: 06-27-2025 Hemoglobin A1c measurement A1C test (Diabetic or Prediabetic) [facility] Start: 04-04-2025 Depression [facility] Start: 03-28-2025 Diabetic foot examination Diabetic foot exam [facility] Start: 03-16-2025 Adult BMI Screening Adult BMI Screen [facility] Start: 03-16-2025 Tobacco Screening Tobacco Screening [facility] Start: 02-21-2025 Adult BMI Screening Adult BMI Screen [facility] Start: 02-21-2025 Tobacco Screening Tobacco Screening [facility] Start: 02-09-2025 Adult BMI Screening Adult BMI Screen [facility] Start: 01-20-2025 Adult BMI Screening Adult BMI Screen [facility] Start: 12-26-2024 End: 12-26-2024 Patient encounter procedure 12/26/2024 4:00 PM EDT Office Visit [facility] [address] [place] [address] Renate Diallo DO [address] [place] [address] 6 mo f/u [facility] Comment on above: 6 mo f/u Start: 09-16-2024 End: 03-16-2025 US.doppler Aorta and Iliac artery - bilateral Vas aorta/iliac duplex complete Vascular Ultrasound Routine 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 (CMS-HCC) Cigarette smoker motivated to quit Stenosis of aorta Expected: 09/16/2024 (Approximate), Expires: 03/16/2025 [facility] Work Phone: Comment on above: Expected: 09/16/2024 (Approximate), Expires: 03/16/2025 Start: 09-14-2024 End: 09-14-2024 Patient encounter procedure 09/14/2024 11:20 AM EST Office Visit [facility] [address] [place] [address] Cruzito Phelps MD [address], [facility] [address] [place] [address] [facility] Start: 08-02-2024 Annual Wellness Visi t (Medicare Advantage) Annual Wellness Visit (Medicare Advantage) [facility] Start: 04-02-2024 COVID-19 Vaccine ( season) COVID-19 Vaccine () [facility] Start: 04-02-2024 Influenza vaccination Influenza Vacc ine [facility] Start: 03-09-2024 End: 03-09-2024 Patient encounter procedure 03/09/2024 8:40 AM EDT Office Visit [facility] [address] [place] [address] Cruzito Phelps MD [address] [place] [address] [facility] Start: 03-02-2024 Influenza vaccination Flu vaccine (# 1) [facility] Start: 02-22-2024 End: 02-22-2024 Admission to same day surgery center 02/22/2024 1:30 PM EDT - 02/22/2024 3:30 PM EDT Surgery [facility] - Special Procedures [address] [place] [id number] Cruzito Phelps MD [address] [place] [address] AORTOGRAM WITH RUNOFF (AORTIC STENT WITH SHOCKWAVE INTRAVASCULAR LITHOTRIPSY) [facility] Comment on above: AORTOGRAM WITH RUNOF F (AORTIC STENT WITH SHOCKWAVE INTRAVASCULAR LITHOTRIPSY) Start: 02-22-2024 End: 02-22-2024 ANGIOGRAM EXTREMITY LOWER ANGIOGRAM EXTREMITY LOWER CRITICAL LIMB ISCHEMIA LOWER EXTREMITY LEFT WITH GANGRENE 02/22/2024 1:30 PM EDT [facility] Start: 02-22-2024 End: 02-22-2024 AORTOGRAM WITH RUNOFF AORTOGRAM WITH RUNOFF CRITICAL LIMB ISCHEMIA LOWER EXTREMITY LEFT WITH GANGRENE 02/22/2024 1:30 PM EDT [facility] Start: 02-22-2024 Subsequent hospital visit by physician 02/22/2024 1:30 PM EDT Hospital Encounter [facility] Special Procedures [address] [place] [address] Cruzito Phelps MD [address], [facility] [address] [place] [address] [facility] Start: 01-27-2024 End: 01-27-2024 Patient encounter procedure 01/27/2024 11:40 AM EDT Office Visit [facility] [address] [place] [address] Cruzito Phelps MD [address], [facility] [address] [place] [address] [facility] Start: 08-24-2023 Screening for malign ant neoplasm of colon [facility] Start: 10-13-2022 [facility] Start: 2015 Administration of varicella zoster vaccine Zoster (Shingles) Vaccine (1 of 2) [facility] Start: 2015 Shingles vaccine (1 of 2) Shingles vaccine (1 of 2) [facility] Start: 08-20-2012 GFR test (Diabetes, CKD 3-4, OR last GFR 15-59) GFR test (Diabetes, CKD 3-4, OR last GFR 15-59) [facility] Start: 2010 Screening for malign ant neoplasm of colon [facility] Start: 1986 Screening for malign ant neoplasm of cervix Pap smear [facility] Start: 01-09-1984 DTaP,Tdap and Td Vaccines (1 - Tdap) DTaP,Tdap and Td Vaccines (1 - Tdap) [facility] Start: 01-09-1984 DTaP/Tdap/Td vaccine (1 - Tdap) DTaP/Tdap/Td vaccine (1 - Tdap) [facility] Start: 01-09-1984 Hepatitis B vaccine (1 of 3 - 19+ 3-dose series) Hepatitis B vaccine (1 of 3 - 19+ 3-dose series) [facility] Start: 1983 Adult BMI Screening Adult BMI Screen ing [facility] Start: 1983 Glaucoma screening Diabetic retinal exam [facility] Start: 1983 Hepatitis C screening Hepatitis C sc reen [facility] Start: 1983 Urine screening for protein Diabetic Alb to Cr ratio (uACR) test [facility] Start: 01-09-1980 HIV screening HIV screen [facility] Start: 1977 Depression Screening Depression Scre ening [facility] Start: 1977 Tobacco Screening Tobacco Screening [facility] Start: 1975 Lipid panel Lipids [facility] Start: 1971 Pneumococcal 0-64 ye ars Vaccine (1 of 2 - PCV) Pneumococcal 0-64 years Vaccine (1 of 2 - PCV) [facility] Start: 1965 Tobacco Counseling Tobacco Counselin g [facility] End: 01-24-2025 Creatinine includes GFR, serum Creatinine includes GFR, serum Lab Routine PAD (peripheral artery disease) ([facility]) 1 Occurrences starting 01/25/2024 until 01/24/2025 [employer] Work Phone: Comment on above: 1 Occurrences starti ng 01/25/2024 until 01/24/2025 Immunizations Immunization Date Immunization Notes Care Provider Hazel hansen NEGATED: Highlighted row has not occurred!09-02-2021 influenza virus vaccine, unspecified formulation Renate YOEL [facility] NEGATED: Highlighted row has not occurred!09-05-2020 influenza virus vaccine, unspecified formulation Renate YOEL [facility] [place] Payers Date Payer Category Payer Self-pay [id number] 2023 Unknown [employer] P [place] [employer]OTED [employer] MEDICARE ADVANTAGE [id number] 2023-Present [phone] [address] [place] [address] [id number] 2020 Medicare [employer]ED [employer] P [place] MEDICARE [employer]ED [employer] MEDICARE ADVANTAGE [id number] 2020-Present [phone] [address] [place] [address] [id number] 2020 Unknown [id number] 1965 Unknown [id number] [id number] 1965 Unknown [id number] 2.16.840.1.757168.3.579.2. 1965 Unknown [id number] 2.16.840.1.577255.3.579.2. 1965 Unknown [id number] 2.16.840.1.463134.3.579.2.727 1965 Unknown [id number] 2.16.840.1.798070.3.579.2. 1965 Unknown [id number] 2.16.840.1.241021.3.579.2.727 1965 Unknown [id number] 2.16.840.1.810136.3.579.2. 1965 Unknown [id number] 2.16.840.1.169121.3.579.2.727 1965 Unknown [id number] 2.16.840.1.387250.3.579.2.727 1965 Unknown [id number] 2.16.840.1.192907.3.579.2.727 1965 Unknown [id number] 2.16.840.1.474412.3.579.2.727 1965 Unknown [id number] 2.16.840.1.824354.3.579.2.727 1965 Unknown [id number] 2.16.840.1.207540.3.579.2.727 1965 Unknown [id number] 2.16.840.1.520031.3.579.2.182 Medicare Self Pay [id number] Medicare Medicare [id number] Unknown [id number] Unknown Regular Auto/Liability [id number] Unknown [id number] Social History Date Type Detail Facility Tobacco smoking stat [facility] Unknown if ever smoked [facility] Start: 1965 Sex Assigned At Female [facility] Start: 03-16-2024 End: 04-04-2024 Sex Assigned At [facility] [employer] Other Start: 05-12-2022 End: 05-25-2023 Tobacco smoking status Heavy tobacco smoker (finding) [facility] Tobacco smoking status Never [facility] Start: 10-13-2022 Tobacco smoking status NHIS Smoker (finding) [facility] Start: 02-14-2024 End: 03-28-2024 Tobacco smoking status NHIS Smokes tobacco daily [employer] Start: 08-02-1993 History of tobacco use [facility] Start: 03-16-2024 End: 03-28-2024 Cigarettes smoked current (pack per day) - Reported 1 [employer] Work Phone: Start: 02-14-2024 End: 03-28-2024 Tobacco use and exposure Smokeless tobacco [facility]-user [facility] Start: 03-16-2024 End: 06-27-2024 Alcoholic beverage intake Current drinker of alcohol (finding) [employer] How often to you hav e a drink containing alcohol? 4 or more times a week [employer] Work Phone: How many standard drinks containing alcohol do you have on a typical day? 1 or 2 [employer] How often do you hav e 6 or more drinks on 1 occasion? Never [employer] (I/We) worried santiago er (my/our) food would run out before (I/we) got money to buy more. Never true [employer] At any time in the past 12 months, were you homeless or living in correction [including now]? No [employer] Start: 1965 Sex assigned at Not on file [employer] Tobacco smoking stat [facility] Tobacco smoking consumption unknown [facility] History of tobacco use [facility] Start: 02-14-2024 Tobacco Comment HAS CUT BACK, SMOKED FOR 45 YEARS AVERAGE 1 PPD [employer] [facility] Start: 02-14-2024 Alcohol Comment 2-3 WINE NIGHTLY [employer] Medical Equipment Procedure Code Equipment Code Equipment [...] BLOO D SUGAR 5 TIMES DAILY DX Start: 05-12-2022 One Touch Delica Plus Lancets [...] with lancets to check blood glucose dx E11.69, [id number], Supply, 158, cm, 05/12/22 15:40:00 EDT, Height/Length Dosing, 59.8, kg, 05/12/22 15:40:00 EDT, Weight Dosing Start: 05-22-2022 USE TO TEST BLOO D SUGAR 5 TIMES DAILY DX Start: 05-12-2022 One Touch Delica Plus Lancets [...] blood sugars 5+ times daily. DX: E11.69, [id number], Supply, 158, cm, 05/25/23 15:27:00 EDT, Height/Length Dosing, 57.3, kg, 05/25/23 15:27:00 EDT, Weight Dosing Start: 05-26-2023 Stent 11mm 16sq Mm 8fr 29mm Bln Expandable Gw [place] [employer] - [id number] - [id number] Start: 02-22-2024 Comment on above: Description: AORTIC STENT Goals Date Patient Goal Desired Activity /State Functional Status Date Assessment Result Facility 03-21-2024 Functional Status N/A [facility] 03-21-2024 Functional Status [facility] 12-31-2022 Functional Status N/A [facility] 05-12-2022 Functional Status N/A [facility] Clinical Notes 10-29-2021 to 03-31-2024 Note [...] agreement with current d/c plan. Services Consulted Options Trader Consult - Completed -- 03/21/24 20:27:31 EDT [...] 50,000 intl units (1.25 mg) oral capsule, 61738 International_Unit, Oral, qWeek, 3 refills Home aspirin 81 m (more content not included)... [facility] Comment on above: Result Comment: Elec tronically Signed By: Ghada CRUZ\.br\Date and Time Signed: 03/26/24 20:38 EDT\.br\Electronically Co-Signed By: Lee Martinez DO.br\Date and Time Co-Signed: 03/31/24 07:00 EDT 03-23-2024 Note Echocardiology Procedure Exam Date/Time Accession # Ordering Dr. Miller w/ Saline Bubbles 03/22/2024 09:41 EDT [id number] ARUNA NIEVESLOLYGhada CPT code 08675 [id number] Reason for Exam (Echo w/ Saline Bubbles) CVA Report [facility] [address] [place] [address] Adult Echocardiogram Report Name: CARI HALE Study Date: 03/22/2024 08:34 AM BP: 117/77 mmHg Patient Location: [address] [place] [address] HR: 90 : 1965 Gender: Female Height: 15 in Age: 59 yrs Ethnicity: T Weight: 57 lb Reason For Study: CVA [...] 0.78 FINAL REPORT Dictated: 03/22/2024 8:34 am Oren Mir MD. Signed (Electronic Signature): 03/23/2024 10:25 am Signed by: Oren Mir MD Transcribed by: FRANCISCO Technologist: DORENE Sahu [facility] [...] for Disease Control and Prevention: cdc.gov National [place] on Alcohol Abuse and Alcoholism: niaaa.nih.gov Alcoholics [...] the National Suicide Prevention Lifeline at or 990. This is open 24 hours a day. Text the Crisis Text Line at 828757. Summary Alcohol misuse and dependence can have [...] provider. Document Revised: 09/23/2022 Document Reviewed: 09/23/2022 [employer] Patient Education 2022 [employer] 03/22/2024 16:19:36 High Cholesterol High Cholesterol [...] your health care provider. General instructions Take crou-rlw-vskpxsi and prescription medicines only as told by your health care provider. Keep all follow-up visits. This is important. Where to find more information [place] Heart Association: www.heart.org National Heart, Lung, and Blood [place]: www.nhlbi.nih.gov Contact a health care provider if: [...] provider. Document Revised: 10/02/2021 Document Reviewed: 09/22/2021 [employer] Patient Education 2022 [employer]. 03/22/2024 16:19:36 Type 2 Diabetes Mellitus, Diagnosis, [...] be managed by a specialist called an public health technician. Type 2 diabetes may be treated [...] meet with a certified diabetes care and special education aide? What diabetes medicines do I need, and when should I take them? What equipment will I need to manage my diabetes at home? How often do I need to check my blood glucose? Where can I find a support group for people with diabetes? What number can I call if I have questions? When is my next appointment? General instructions Take rfsn-wwy-nuniujs and prescription medicines only as told by your health care provider. Keep all follow-up visits. This is important. Where to find more information For help and guidance and for more information about diabetes, please visit: [place] Diabetes Association (ADA): www.diabetes.org [place] Association of Diabetes Care and Education Specialists [...] provider. Document Revised: 10/13/2021 Document Reviewed: 10/13/2021 [employer] Patient Education 2022 [employer]. 03/22/2024 16:19:36 Hypertension, Adult, Uhpp-bk-Acub Hypertension, Adult Hypertension is another name for [...] doctor. Keep all follow-up visits. Medicines Take xyrx-jcg-wahspze and prescription medicines only as told by [...] provider. Document Revised: 05/07/2022 Document Reviewed: 05/07/2022 [employer] Patient Education 2022 [employer]. 03/22/2024 16:19:36 Smoking Tobacco Information, Adult Smoking [...] smokers have a higher risk for: ?Sudden syndrome (SIDS). ?Ear infections. ?Lung infections. What [...] quit. Calling the smokefree.gov counselor helpline at 0-516-AULN-NOW ( ). Where to find more information You may find more information about quitting smoking from: Centers for Disease Control and Prevention: cdc.gov/tobacco Smokefree.gov: smokefree.gov [place] Lung Association: freedomfromsmoking.org Contact a health care [...] provider. Document Revised: 07/14/2022 Document Reviewed: 07/14/2022 [employer] Patient Education 2022 [employer] 03/22/2024 16:19:36 Core Measures Transient Ischemic Attack (TIA) [facility] (Custom) Transient Ischemic Attack You have had a [...] factors for stroke, work with your health pharmacy care coordinator to control them. Risk Factors: High Blood [...] Please call [facility] Smoking Cessation Program at [phone] ([facility]), or [phone], ext. [phone] Diabetes: Work with your healthcare professional to [...] cholesterol diet, you can call our [facility] data collection associate at [phone]. The goal for total cholesterol [...] your risk of stroke with your health pharmacy care coordinator. If this is your first ischemic attack, [...] for more information on strokes, log onto www.[email or web address] or www.strokeassociation.org or call the [place] Heart Association at (074) 326- [phone]. Revised 08/201803/22/2024 16:19:36 Core Measures: Stroke (Cerebrovascular Accident) [facility], (Custom) Stroke (Cerebrovascular Accident) A stroke is [...] factors for stroke, work with your health pharmacy care coordinator to control them. High Blood Pressure: High [...] Please call [facility] Smoking Cessation Program at [phone] ([facility]), or [phone], ext. [phone] Diabetes: Work with your healthcare professional to [...] cholesterol diet, you can call our [facility] data collection associate at [phone] Ext. [phone]. The goal for total cholesterol is less [...] your risk of stroke with your health pharmacy care coordinator. TREATMENT TIME IS OF THE ESSENCE! Medications [...] will be taken to prevent short and long wall mining machine tender complications, including aspiration pneumonia, blood clots in [...] for more information on strokes, log onto www.[email or web address] or www.strokeassociation.org or call the [place] Heart Association at (704) 015- 2021. Revised 08/2018 Follow Up Care 03/21/2024 13:41:56 With:Bruno HANKS, SONIA Pichardo Address: [place] [id number] When:2 to 4 weeks [facility] 03-22-2024 Note GetWell Learning Par ticipants [facility] Understand[facility] Education Yes GetWell Education Video Getting Help When You Leave the Hospital [facility] 03-22-2024 Note GetWell Understands Education Yes GetWell Education Video After a Hospital Stay: Managing Appointments GetWell Learning Participants Patient [facility] 03-22-2024 Note GetWell Understands Education Yes GetWell Education Video Avoiding Infections in the Hospital GetWell Learning Participants Patient [facility] 03-22-2024 Note Patient Education - Text [...] factors for stroke, work with your health pharmacy care coordinator to control them. Risk Factors: High Blood [...] Please call [facility] Smoking Cessation Program at [phone] ([facility]), or [phone], ext. [phone] Diabetes: Work with your healthcare professional to [...] cholesterol diet, you can call our [facility] data collection associate at [phone] Ext [phone]. The goal for total cholesterol is less [...] your risk of stroke with your health pharmacy care coordinator. If this is your first ischemic attack, [...] follow-up with yo (more content not included)... [facility] 03-22-2024 Note Progress Note-Physic anabelle Assessment/Plan [...] Pt reports recent ileac stent placement at [place] by ? symptoms since that time. ASA/Plavix. I did call and speak to who is requesting CTA of the neck. 6. CAD (I25.10: Atherosclerotic heart disease of douglas coronary artery without angina pectoris) ASA, Plavix 7. Emphysema/COPD (J43.9: Emphysema, unspecified) Med nebs, budesonide 8. Mood disorder (F39: Unspecified mood [affective] disorder) W/anxiety and depression Bupropion, Lamictal 9. Alcohol abuse (F10.10: Alcohol abuse, uncomplicated) Pt significant other reports that pt drinks 2 bottles of wine a night. Pt confirms. [facility] protocol Monitor for s/sx of withdrawl. 10. History of thyroidectomy (E89.0: Postprocedural hypothyroidism) levothyroxine 11. 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 [facility] Comment on above: Result Comment: Elec [...] Pt reports recent ileac stent placement at [place] by ? symptoms since that time. ASA/Plavix. I did call and speak to who is requesting CTA of the neck. 6. CAD (I25.10: Atherosclerotic heart disease of douglas coronary artery without angina pectoris) ASA, Plavix 7. Emphysema/COPD (J43.9: Emphysema, unspecified) Med nebs, budesonide 8. Mood disorder (F39: Unspecified mood [affective] disorder) W/anxiety and depression Bupropion, Lamictal 9. Alcohol abuse (F10.10: Alcohol abuse, uncomplicated) Pt significant other reports that pt drinks 2 bottles of wine a night. Pt confirms. [facility] protocol Monitor for s/sx of withdrawl. 10. History of thyroidectomy (E89.0: Postprocedural hypothyroidism) levothyroxine 11. 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 CAD (I25.10: Atherosclerotic heart disease of douglas coronary artery without angina pectoris) 7. Emphysema/COPD [...] Ordered: Initial Hospital Care/Day High 75 Minutes [id number] 2. Type 2 diabetes mellitus with diabetic neuropathy (E11.40: Type 2 diabetes mellitus with diabetic neuropathy, unspecified) AccuChecks AC/HS Pt to use insulin pump. Ordered: Initial Hospital Care/Day High 75 Minutes 38371 3. HTN (I10: Essential (primary) hypertension) Allow permissive HTN tonight Propranolol Ordered: Initial Hospital Care/Day High 75 Minutes 29140 4. Hyperlipidemia (E78.5: Hyperlipidemia, unspecified) Statin Lipid panel pending. Ordered: Initial Hospital Care/Day High 75 Minutes 75356 5. PAD (peripheral artery disease) (I73.9: Peripheral vascular disease, unspecified) Pt reports recent stent placement by ? symptoms since that time. ASA/Plavix. 6. CAD (I25.10: Atherosclerotic heart disease of douglas coronary artery without angina pectoris) ASA, Plavix Ordered: Initial Hospital Care/Day High 75 Minutes 91960 7. Emphysema/COPD (J43.9: Emphysema, unspecified) Med nebs, budesonide 8. Mood disorder (F39: Unspecified mood [affective] disorder) W/anxiety and depression Bupropion, Lamictal 9. Alcohol abuse (F10.10: Alcohol abuse, uncomplicated) Pt significant other reports that pt drinks 2 bottles of wine a night. Pt confirms. [facility] protocol Monitor for s/sx of withdrawl. 10. History of thyroidectomy (E89.0: Postprocedural hypothyroidism) levothyroxine 11. 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 TIA (transient ischemic a ttack) (G45.9: Transient cerebral ischemic attack, unspecified) Ordered: ED Physician consult Hospitalist for continued care Diagnostic Tests Pending * Lipid Panel 03/23/24 * HgbA1c 03/23/24 Future Scheduled Tests Radiology* MA Mamm Screen w/CAD if perf and 3D Jace 05/25/23 [facility] 08-21-2024 NoteConsultation Note Chief Complaint weakness, [...] and managed to use a phone voice assistant director of nursing to call her . He inadvertently recorded [...] and other notes but I did not cigar packer and picker on any of that. Review of [...] both correctly = 0 Open and close eyes/charge account authorizer release hand: Obeys both correctly = 0 [...] 6. CAD (I25.10: Atherosclerotic heart disease of douglas coronary artery without angina pectoris) 7. Emphysema/COPD [...] problems related to lifes (more content not included)...[facility]Result Comment: Electronically Signed By: Jumana Min RN\.br\Date and Time Signed: 03/22/24 07:40 EDT\.br\Electronically Co-Signed By: Joseph Woody DO\.br\Date and Time Co- Signed: 03/22/24 10:56 EDT\.br\Electronically Co-Signed By: Jumana Min RN [id number] NoteConsultation Note Chief Complaint weakness, stroke symptoms, since resolved Reason for Consultation TIA/CVA History of Present Illness 9-year-old woman. Drinks 2 bottles of wine daily. Had an episode yesterday in the early afternoon where she woke up in bed and felt like she could not move. She got very upset and anxious and was crying and managed to use a phone voice assistant director of nursing to call her . He inadvertently recorded [...] and other notes but I did not cigar packer and picker on any of that. Review of [...] both correctly = 0 Open and close eyes/charge account authorizer release hand: Obeys both correctly = 0 [...] 6. CAD (I25.10: Atherosclerotic heart disease of douglas coronary artery without angina pectoris) 7. Emphysema/COPD [...] problems related to lifes (more content not included)...[facility]:Result Comment: Electronically Signed By: Jumana Min RN\.br\Date and Time Signed: 03/22/24 07:40 EDT\.br\Electronically Co-Signed By: Joseph Woody DO\.br\Date and Time Co- Signed: 03/22/24 10:56 [id number] NoteHistory and Physical Chief Complaint c/o weakness [...] to blood sugar of 64. On arrival [facility] pt's blood sugar had improved to [...] CP, SOB, N/V> Reports recent stent placement w/ for PAD. States since that time she [...] 13:45:00) Lymph Auto: 22.4 % (03/21/24 13:45:00) Boundary Auto: 10.6 % (03/21/24 13:45:00) Eos Auto: 2.5 % (03/21/24 13:45:00) Basophil Auto: 0.8 % (03/21/24 13:45:00) Neutro Absolute: 6.1 E9/L (03/21/24 13:45:00) Lymph Absolute: 2.1 E9/L (03/21/24 13:45:00) Boundary Absolute: 1 E9/L (03/21/24 13:45:00) Eos Absolute: [...] mg/dL High (03/21/24 16:13:00) POC Device SN: [id number] (03/21/24 16:13:00) POC User ID: [id number] (03/21/24 16:13:00) POC Username: POC Username (03/21/24 16:13:00) UA Spec Desc: Clean Catch (03/21/24 16:27:00) UA Color: Light-Yellow (03/21/24 16:27:00) UA Clarity: Clear (03/21/24 16:27:00) UA Spec Grav: 1.020 (03/21/24 16:27:00) UA pH: 5.5 (03/21/24 16:27:00) UA Protein: Negat (03/21/24 16:27:00) UA Glucose: 4+ Abnorm (more content not included)...[facility] Comment on above:Result Comment: Electronically Signed By: Ghada CRUZ\.br\Date and Time Signed: 03/21/24 20:04 EDT\.br\Electronically Co- Signed By: Ghada CRUZ\.br\Date and Time Co-Signed: 03/21/24 20:05 EDT\.br\Electronically Co-Signed By: Lee Martinez DO\.br\Date and Time Co-Signed: 03/22/24 09:33 [id number] Evaluation + Plan note* Assessment & Plan Note - Cruzito Phelps MD - 03/16/2024 11:28 AM EDTAssociated Problem(s): 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 She is on aspirin Plavix and statin. Will continue aspirin Plavix and Crestor. She will quit smoking. Will get surveillance imaging in 6 months. 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 She is on aspirin Plavix and statin. Will continue aspirin Plavix and Crestor. She will quit smoking. Will get surveillance imaging in 6 months. * Assessment & Plan Note - Cruzito Phelps MD - 03/16/2024 11:27 AM EDT Associated Problem(s): Cigarette smoker motivated to quit Counseled on smoking cessation at length. She is willing to quit. [facility] Evaluation + Plan note* Assessment & Plan Note - Cruzito Phelps MD - 03/16/2024 11:27 AM EDT Associated Problem(s): Cigarette smoker motivated to quit Counseled on smoking cessation at length. She is willing to quit. [facility] History of Present illness Narrative* Cruzito Phelps MD - 03/16/2024 10:50 AM EDT Images from the original note were not included. To: FLORA ESCALERA, SALESPERSON WOMEN'S DRESSES-ARTIFICIAL TEETH INSPECTOR HPI: Cari Hale is a 59 y.o. female with Longstanding history of smoking she had infrarenal aortic stenosis status post stenting. She feels great. There wound in her left great toe healed nicely. Her claudication has resolved. She feels like a different person. She is very happy. She is on aspirin Plavix and statin.. Review of Systems: Review of Systems Constitutional: Negative. HENT: Negative. Respiratory: Negative. Cardiovascular: Negative. Gastrointestinal: Negative. Endocrine: Negative. Genitourinary: Negative. Musculoskeletal: Negative. Skin: Negative. Neurological: Negative. Hematological: Negative. Medications: Current Outpatient Medications on File Prior to Visit Medication Sig Dispense Refill aspirin 81 mg Take 1 tablet (81 mg total) by mouth in the morning. 30 tablet 2 budesonide EC (ENTOCORT EC) 3 mg 24 hr capsule Take 3 capsules (9 mg total) by mouth every morning.ULCERATIVE COLITIS buPROPion XL (WELLBUTRIN XL) 150 mg 24 hr tablet Take 1 tablet (150 mg total) by mouth in the morning. 30 tablet 6 cholecalciferol, vitamin D3, 50,000 units tablet Take 1 tablet (50,000 Units total) by mouth once aweek. clopidogreL (PLAVIX) 75 mg tablet Take 1 tablet (75 mg total) by mouth in the morning. (Patient taking differently: Take 1 tablet (75 mg total) by mouth in the morning. Indications: treatment to prevent peripheral artery thromboembolism.) 30 tablet 12 escitalopram (LEXAPRO) 10 mg tablet Take 1 tablet (10 mg total) by mouth in the morning. estradioL (ESTRACE) 2 mg tablet Take 1 tablet (2 mg total) by mouth nightly Indications: change oflife signs. hydrOXYzine (ATARAX) 25 mg tablet TAKE 1 TABLET BY MOUTH 4 TIMES A DAY NEEDED FOR ANXIETY insulin aspart SUBCUTANEOUS PUMP (NovoLOG) 100 UNIT/ML patient supplied pump Inject 19 Units under the skin continuously. Patient to self-manage pump according to the following parameters: 19 units in 12 hours and then adds sliding scale with meals lamoTRIgine (LaMICtal) 25 mg tablet TAKE 1 TAB BY MOUTH DAILY X2 WKS, 2 TABS DAILY X2 WKS, 3 TABS DAILY X2 WKS, 4 TABS DAILY X2 WKS levothyroxine (SYNTHROID, LEVOTHROID) 100 MCG tablet Take 1 tablet (100 mcg total) by mouth in the morning. Indications: a condition with low thyroid hormone levels. progesterone (PROMETRIUM) 100 mg capsule Take 1 capsule (100 mg total) by mouth nightly Indications: prevention of abnormal growth in cells of uterine lining. propranoloL (INDERAL) 20 mg tablet Take 1 tablet (20 mg total) by mouth in the morning and 1 tablet(20 mg total) before bedtime. Indications: essential tremor. rosuvastatin (CRESTOR) 5 mg tablet Take 1 tablet (5 mg total) by mouth in the morning. Indications:excessive fat in the blood. rosuvastatin (CRESTOR) 5 mg tablet Take 1 tablet (5 mg total) by mouth in the morning. 30 tablet 0 ergocalciferol (DRISDOL) 1,250 mcg (50,000 unit) capsule Take 1 capsule (50,000 Units total) by mouth once a week. (Patient not taking: Reported on 02/22/2024) No current facility-administered medications on file prior to visit. Past Medical History: Past Medical History: Diagnosis Date Abnormal menstruation 02/14/2024 HAS HAD MENSTRAL CYCLE X8 MONTHS AT AGE 59 Anxiety Aortic stenosis Chronic ulcerative colitis with complication ([facility]) 2020 Coronary artery disease Dental disease PARTIALS 1 UPPER AND LOWER HAS 1 Depression FHx: tremor Hypercholesteremia Hypothyroidism LEFT REMOVED Open wound of great toe SINCE 12/2023 HAD INGROWN TOENAIL REMOVED AND HAS HAD WOUND SINCE Panic disorder Rash Thin skin Type 1 diabetes ([facility]) Past Surgical History: Past Surgical History: Procedure Laterality Date ANGIOGRAM EXTREMITY LOWER WITH IVUS Left 02/22/2024 Performed by Cruzito Phelps MD at [facility] PROC AORTOGRAM WITH RUNOFF (AORTIC STENT WITH SHOCKWAVE INTRAVASCULAR LITHOTRIPSY) N/A 02/22/2024 Performed by Cruzito Phelps MD at [facility] PROC AVULSION TOENAIL PLATE 12/2023 INGROWN TOENAIL LEFT GREAT TOE BACK SURGERY CARDIAC CATHETERIZATION COLONOSCOPY X4-5 LEFT sfa DRUG BALLOON ANGIOPLASTY Left 02/22/2024 Performed by Cruzito Phelps MD at [facility] SPECIAL PROC THYROID SURGERY Vascular Invasive bilat lower extremity angiogram Left 01/21/2024 Performed by Cruzito Phelps MD at [facility] CARDIAC CATH LABS Social and Family History: Social History Socioeconomic History Marital status: Spouse name: Not on file Number of children: Not on file Years of education: Not on file Highest education level: Not on file Occupational History Not on file Tobacco Use Smoking status: Every Day Current packs/day: 0.50 Types: Cigarettes Passive exposure: Past Smokeless tobacco: Never Tobacco comments: HAS CUT BACK, SMOKED FOR 45 YEARS AVERAGE 1 PPD Vaping Use Vaping status: Never Used Substance and Sexual Activity Alcohol use: Yes Comment: 2-3 WINE NIGHTLY Drug use: Not Currently Types: Marijuana Comment: rare 3 months ago Sexual activity: Defer Other Topics Concern Not on file Social History Narrative Not on file Social Determinants of Health Financial Resource Strain: Not on file Food Insecurity: No Food Insecurity (03/16/2024) Hunger Screening Food Insecurity - Worry: Never True Food Insecurity - Inability: Never True Transportation Needs: Not on file Physical Activity: Not on file Stress: Not on file Social Connections: Not on file Interpersonal Safety: Not on file Housing Instability: Not on file Family History Problem Relation Age of Onset Anesthesia problems Father CONFUSION Recent Labs: Recent and relative labs were reviewed and interpreted and contributed to the assessment and plan below. Vitals: BP 127/84 (BP Site: Right Arm, BP Postition: Sitting, BP CUFF SIZE: M (9-13 inches)) Pulse (!) 125 Ht 157.5 cm (5' 2 ) Wt 58.1 kg (128 lb) LMP 02/20/2024 SpO2 96% BMI 23.41 kg/m Body mass index is 23.41 kg/m . Physical Exam: Physical Exam Constitutional: Appearance: Normal appearance. HENT: Head: Normocephalic and atraumatic. Mouth/Throat: Mouth: Mucous membranes are moist. Eyes: Extraocular Movements: Extraocular movements intact. Pupils: Pupils are equal, round, and reactive to light. Cardiovascular: Rate and Rhythm: Normal rate and regular rhythm. Pulmonary: Effort: Pulmonary effort is normal. Breath sounds: Normal breath sounds. Abdominal: General: Abdomen is flat. Bowel sounds are normal. Palpations: Abdomen is soft. Musculoskeletal: General: Normal range of motion. Cervical back: Normal range of motion. Skin: General: Skin is warm and dry. Neurological: General: No focal deficit present. Mental Status: She is alert and oriented to person, place, and time. Mental status is at baseline. Psychiatric: Mood and Affect: Mood normal. Behavior: Behavior normal. Thought Content: Thought content normal. Judgment: Judgment normal. Recent testing: Assessment and Plan: Problem List Cigarette smoker motivated to quit Current Assessment & Plan Counseled on smoking cessation at length. She is willing to quit. 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 She is on aspirin Plavix and statin. Will continue aspirin Plavix and Crestor. She will quit smoking. Will get surveillance imaging in 6 months. Cari was seen today for p/o angio and critical limb ischemia of left lower extremity with gangren. 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 While intending to generate a timely document that accurately reflects the content of the visit, no guarantee can be provided that every grammatical or spelling mistake has been or will be identified or corrected. Thank you for your understanding. [facility] Instructions* Patient Instructions* Cruzito Phelps MD - 03/16/2024 10:50 AM EDT Are You Ready To Kick The Habit? Free Tobacco Cessation Resources [facility] Services [facility] provide all employees with free tobacco cessation services that include: Counseling to understand nicotine addiction Education about medications that can help you successfully quit Assistance with developing a plan to quit Call to set up an individual appointment or find out when group classes will be held: [facility]: [phone] [facility]: [phone] [facility]: [phone] [facility]: [phone] Quit Smoking Action Plan and Resources [facility] offers an eight-week, online smoking cessation plan to all [facility] employees, regardless of whether Alicia is your medical insurance provider. Go to [email or web address]/employeewellness and click the Health Risk Assessment and Resources link to get started. In the [employer] menu, click Action Plans instead of Health Risk Assessment to access the Quit Smoking Action Plan. Additional smoking cessation resources are also available to all [facility] employees on the [employer] web page at www.[employer].com/quitsmoking. [place] Tobacco Cessation Program If Alicia is your medical insurance provider, there are more free resources available to you, including: No copays or deductibles on local tobacco cessation counseling services to help you quit Prescription assistance for tobacco cessation medications to help you quit For details about the tobacco cessation program available to [place] members, go to www.[employer].com (Search: Tobacco Cessation Program). [place] Tobacco Quit Line 7-602-TZAC-NOW ( ) is a toll-free, telephonic service that helps [place] residents quit smoking and using tobacco. It is staffed by experts who tailor a quit plan for you and provide you with advice. [place] Tobacco Quit Line 1-120-KUJR-NOW ( ) is a toll-free, telephonic service that helps [place] residents quit smoking and using tobacco. It is staffed by experts who tailor a quit plan for you and provide you with advice. Two weeks of nicotine replacement therapy may be provided at no charge, if needed. Additional Resources These national organizations also offer free information and resources to help you quit tobacco: [place] [employer]--www.cancer.org/healthy/stayawayfromtobacco [place] [employer]--www.heart.org (Search: Quit Smoking) Centers for Disease Control and Prevention--www.cdc.gov/tobacco [place] [employer]--www.lungusa.org documented in [facility] Miscellaneous Notes* Telephone Encounter - Sharda COLLEEN Lobo - 02/23/2024 4:04 PM EDT Cari called stating there was to be 3 meds ordered after surgery she is needing the meds ordered specifically the antibiotics and sent to [facility] in [place] documented in this [facility] Telephone encounter Note* Telephone Encounter - Sharda Lobo CMA - 02/23/2024 4:04 PM EDT Cari called stating there was to be 3 meds ordered after surgery she is needing the meds ordered specifically the antibiotics and sent to [facility] in [place] [facility] Instructions* Pre-Procedure Instructions - Luz Maria Willis RN - 02/14/2024 12:45 PM EDT Your surgery/procedure is scheduled at [facility] on 02/22/24 at 1:30PM Arrival Time 11:30AM [facility] Address: [address] [place] [address] in [address] located on [facility]. Report to the Entrance B. Check in at the information desk the surgery. The waiting room located on the second floor. If you have any questions prior to surgery, please call Pre-Admission Clinic at [phone] between 7:30 am and 4:30 pm Wednesday through Wednesday. If you have questions the morning of surgery, please call the Pre-op Department at [phone]. Notify your SURGEON if you develop any illness such as a cold, cough, fever, sore throat, vomiting or are hospitalized between now and your surgery. CONTINUE TO TAKE YOUR MEDICATIONS PRESCRIBED. DO NOT STOP YOUR PRESCRIBED MEDICATIONS UNLESS DIRECTED BY YOUR PRESCRIBING PHYSICIAN Take the following medications the morning of surgery with a sip of water: PER DR PHELPS Weight loss medications: NA Take inhalers as prescribed the morning of surgery. . Blood thinners: Medications such as Coumadin, Heparin, Aspirin, Plavix, Eliquis, Pradaxa) Please contact your physician regarding a stop/hold date for these medications. Diabetics: If you take insulin, contact your prescribing doctor for instructions on how to manage this the night before and the morning of surgery. Non-steriodal Anti-Inflammatory Drugs (NSAIDS)- Stop 3 days prior to surgery unless otherwise directed by your surgeon. Vitamins/Herbal Products: You may continue to take your prescribed vitamins such as potassium, iron, vitamin B, vitamin C, or multivitamin unless specifically instructed by your surgeon to stop. STOPtaking all herbal products/teas one week prior to your surgery. Marijuana: Stop marijuana 72 hours prior to surgery, stop CBD oil 48 hours prior to surgery. If you have been given bowel prep instructions by your surgeon, please call the surgeon's office with any questions about these instructions. What do I do the day of Surgery? Age 2 through adult - Stop all solids by midnight, You may have clear liquids up to 2 hours before surgery, unless otherwise instructed by your surgeon. Clear liquids are: water, sports drinks such as Gatorade or G2, or apple juice. You may NOT have: tube feedings, dairy products, alcoholic beverages, orange juice, or any liquids with solids or pulp in it. If applicable, shower again with CHG soap the morning of your surgery. If you received a green plastic bracelet, bring it with you the day of surgery and your nurse will put it on you. In order to help prevent infection post-operatively, you may be asked to use a CHG mouthwash when you arrive to the Pre-op area. Your nurse will provide instruction the morning of. What do I need to do to prepare for surgery? If you will be going home the same day as your surgery, arrange for an adult over [address] Riding in a bus or taxi by yourself is not permitted. You should not smoke or drink alcohol 24 hours before your surgery. Alcohol thins the blood and may cause bleeding problems during surgery. Smoking increases the risk of breathing problems after surgery. If you have been assigned PITA Education by your surgeon's office, please complete this education prior to your surgery. For questions regarding PITA education, reach out to your surgeon's office. If you have been given a prescription for occupational, physical or speech therapy, please set up these appointments before your procedure. If you would like to schedule therapy at a [facility] facility, please call [phone] ([phone]). Do not use lotions, creams, powders, perfume, make up, cologne or after-shaves day of surgery. Remove ALL jewelry including wedding rings, body piercings,hair extensions that contain metal, nailpolish, make-up, and contact lens. You may brush your teeth the morning of surgery, but do not swallow the water. Wear your dentures and partial plates to the hospital (no adhesive). Shower the night the before. If applicable, use the CHG (chlorhexidine gluconate) soap or wipes What should I bring to the hospital? If you received a green plastic bracelet, bring it with you the day of surgery and your nurse will put it on you. Eyeglass or contact lens case If you will be spending the night, please bring personal care items and leave them in the car untilyou are taken to your room after surgery. Leave ALL valuables at home. If any of these instructions conflict with those you received from the surgeon, please seek clarification from your surgeon's office. DEEP BREATHING EXERCISES This exercise helps promote good air exchange and helps to prevent pneumonia after surgery. Breathe in slowly and deeply through the nose. Hold your breath for a few seconds and then exhale slowly through the mouth. Repeat this three times and then cough.Coughing helps to clear your lungs. If you have had a surgery with an incision into your abdomen or chest, press gently against your incision with a pillow or a folded blanket when you cough. Please be aware - it may not be metzger to cough following some types of surgeries involving the eyes,ears, sinuses and throat. Always follow your doctor's instructions. LEG EXERCISE These exercises help promote good circulation and help to prevent blood clots after surgery. Point your toes to the ceiling and then point them to the wall. Do this slowly about 15-20 times. You may also move your feet in circles. Do the exercise that is most comfortable for you. If you have had surgery involving your shoulder or arm, we recommend you move your fingers. PRACTICING We ask that you begin practicing these exercises before your surgery. After surgery try to do both exercises at least every 2 hours during the day and early evening. SURGICAL SITE INFECTION PREVENTION What is a Surgical Site Infection? Infection can happen to the area of the body where surgery is done. This is called a surgical site infection (SSI). A SSI does not happen very often. Can SSIs be treated? Antibiotics are used to treat SSI. Some patients may need another surgery to treat the infection. The doctor will discuss treatment options with you. What are some of the things that hospitals are doing to prevent SSIs? Soap and water or alcohol hand rub are used before and after caring for each patient. Special soap is used to clean surgery workers hands and arms just before the surgery. Masks, gowns, gloves and hair covers are worn during the surgery to keep the area clean. Hair in the surgery area may be removed with clippers (not razors). A special soap that kills germs is used to clean the skin at the surgery site. Antibiotics may be given before the surgery starts. What can you do to prevent SSIs? Before surgery: You may be asked to shower or bathe with a special soap that kills germs the night before and the day of surgery. Use the soap as you were told. If you smoke, stop or cut down. Ask your doctor about ways to quit. Do not shave near where you will have surgery. Shaving can irritate the skin and make it easier to get and infection. After surgery: Be sure that the doctors and nurses clean their hands before and after touching you. Be sure your family and friends clean their hands before and after visiting you. Do not be afraid to remind them. * Care for your wound at home as told by your doctor or nurse * Call your doctor right away if you have fever, redness, increased pain, or drainage at the surgery site. Further questions? Contact the doctor, nurse or the Infection Prevention and Control department if you have any questions. PATIENT RIGHTS AND RESPONSIBILITIES As a patient at [facility], you have the right to: Receive medical care and be informed of who is taking care of you Be treated with dignity and respect Have a family member/outside industrial sales representative of choice and your physician notified of your admission Receive information and actively participate in decisions about your care and treatment Refuse care, treatment and services Decide who may provide your support and speak for you Access yarsani and spiritual services Participate in ethical issues and questions about your care Receive private and confidential care Have appropriate assessment and management of your pain Know guest visitation restrictions or limitations Have an advance directive Access protective services Consent or refuse to participate in research studies or production or recordings, films or other images Have resolution of your complaints Receive information of hospital charges and payment methods Patient/patient outside industrial sales representative responsibilities are to: Provide information about health status to facilitate care, treatment and services Follow the treatment, plan, keep appointments and speak up when you do not understand the plan Respect the rights of other patients and healthcare personnel Follow organizational rules and regulations that support quality care and a safe environment Fulfill financial obligations as promptly as possible Bathing Before Surgery- Patients greater than 2 months of age You can help to lower your chance of infection at the site of your surgery by showering or bathing with a special soap called chlorhexidine gluconate (CHG). Germs live on your skin. This special soapwill help lower the amount of germs so they do not get into your surgery site. Special points to know: Do not use this soap if you know that you are allergic to CHG. Shower or bathe with CHG the night before and the morning of surgery. Do not shave the area of your body where the surgery will be done within 7 days of surgery. The CHG may make your skin a little dry, but do not use lotion. Steps for Bathing: Wash your hair as usual with your normal shampoo. Rinse your hair and body well after you shampoo to get rid all of the shampoo. Wash gently with the CHG from the neck down, but do not scrub the skin to hard. Be sure to wash thearea of your surgery very well. If showering, turn the water off while washing and then turn the water back onto rinse. Do not get CHG in the genital (private) area. Do not get CHG in the eyes, ears, nose or mouth. (If the soap gets into the eyes, flush them immediately with water). Do not wash with regular soap after CHG is used. Pat skin dry with a soft, clean towel. Patient should sleep in freshly laundered night clothes and report for surgery in clean clothes. [facility] Graph[facility] [id number] Miscellaneous Notes* Perioperative Nursing Note - Luz Maria Willis RN - 02/14/2024 12:45 PM EDT PATIENT DIRECTED CALL DR PHELPS OFFICE FOR MEDICATION INSTRUCTIONS FOR DAY OF SURGERY. * Pre-Procedure Instructions - Luz Maria Willis RN - 02/14/2024 12:45 PM EDT Your surgery/procedure is scheduled at [facility] on 02/22/24 at 1:30PM Arrival Time 11:30AM [facility] Address: [address] [place] [address] in Parking lot located on [facility]. Report to the Entrance B. Check in at the information desk the surgery. The waiting room located on the second floor. If you have any questions prior to surgery, please call Pre-Admission Clinic at [phone] between 7:30 am and 4:30 pm Wednesday through Wednesday. If you have questions the morning of surgery, please call the Pre-op Department at [phone]. Notify your SURGEON if you develop any illness such as a cold, cough, fever, sore throat, vomiting or are hospitalized between now and your surgery. CONTINUE TO TAKE YOUR MEDICATIONS PRESCRIBED. DO NOT STOP YOUR PRESCRIBED MEDICATIONS UNLESS DIRECTED BY YOUR PRESCRIBING PHYSICIAN Take the following medications the morning of surgery with a sip of water: PER DR PHELPS Weight loss medications: NA Take inhalers as prescribed the morning of surgery. . Blood thinners: Medications such as Coumadin, Heparin, Aspirin, Plavix, Eliquis, Pradaxa) Please contact your physician regarding a stop/hold date for these medications. Diabetics: If you take insulin, contact your prescribing doctor for instructions on how to manage this the night before and the morning of surgery. Non-steriodal Anti-Inflammatory Drugs (NSAIDS)- Stop 3 days prior to surgery unless otherwise directed by your surgeon. Vitamins/Herbal Products: You may continue to take your prescribed vitamins such as potassium, iron, vitamin B, vitamin C, or multivitamin unless specifically instructed by your surgeon to stop. STOPtaking all herbal products/teas one week prior to your surgery. Marijuana: Stop marijuana 72 hours prior to surgery, stop CBD oil 48 hours prior to surgery. If you have been given bowel prep instructions by your surgeon, please call the surgeon's office with any questions about these instructions. What do I do the day of Surgery? Age 2 through adult - Stop all solids by midnight, You may have clear liquids up to 2 hours before surgery, unless otherwise instructed by your surgeon. Clear liquids are: water, sports drinks such as Gatorade or G2, or apple juice. You may NOT have: tube feedings, dairy products, alcoholic beverages, orange juice, or any liquids with solids or pulp in it. If applicable, shower again with CHG soap the morning of your surgery. If you received a green plastic bracelet, bring it with you the day of surgery and your nurse will put it on you. In order to help prevent infection post-operatively, you may be asked to use a CHG mouthwash when you arrive to the Pre-op area. Your nurse will provide instruction the morning of. What do I need to do to prepare for surgery? If you will be going home the same day as your surgery, arrange for an adult over [address] Riding in a bus or taxi by yourself is not permitted. You should not smoke or drink alcohol 24 hours before your surgery. Alcohol thins the blood and may cause bleeding problems during surgery. Smoking increases the risk of breathing problems after surgery. If you have been assigned PITA Education by your surgeon's office, please complete this education prior to your surgery. For questions regarding PITA education, reach out to your surgeon's office. If you have been given a prescription for occupational, physical or speech therapy, please set up these appointments before your procedure. If you would like to schedule therapy at a [facility] facility, please call [phone] ([phone]). Do not use lotions, creams, powders, perfume, make up, cologne or after-shaves day of surgery. Remove ALL jewelry including wedding rings, body piercings,hair extensions that contain metal, nailpolish, make-up, and contact lens. You may brush your teeth the morning of surgery, but do not swallow the water. Wear your dentures and partial plates to the hospital (no adhesive). Shower the night the before. If applicable, use the CHG (chlorhexidine gluconate) soap or wipes What should I bring to the hospital? If you received a green plastic bracelet, bring it with you the day of surgery and your nurse will put it on you. Eyeglass or contact lens case If you will be spending the night, please bring personal care items and leave them in the car untilyou are taken to your room after surgery. Leave ALL valuables at home. If any of these instructions conflict with those you received from the surgeon, please seek clarification from your surgeon's office. DEEP BREATHING EXERCISES This exercise helps promote good air exchange and helps to prevent pneumonia after surgery. Breathe in slowly and deeply through the nose. Hold your breath for a few seconds and then exhale slowly through the mouth. Repeat this three times and then cough.Coughing helps to clear your lungs. If you have had a surgery with an incision into your abdomen or chest, press gently against your incision with a pillow or a folded blanket when you cough. Please be aware - it may not be metzger to cough following some types of surgeries involving the eyes,ears, sinuses and throat. Always follow your doctor's instructions. LEG EXERCISE These exercises help promote good circulation and help to prevent blood clots after surgery. Point your toes to the ceiling and then point them to the wall. Do this slowly about 15-20 times. You may also move your feet in circles. Do the exercise that is most comfortable for you. If you have had surgery involving your shoulder or arm, we recommend you move your fingers. PRACTICING We ask that you begin practicing these exercises before your surgery. After surgery try to do both exercises at least every 2 hours during the day and early evening. SURGICAL SITE INFECTION PREVENTION What is a Surgical Site Infection? Infection can happen to the area of the body where surgery is done. This is called a surgical site infection (SSI). A SSI does not happen very often. Can SSIs be treated? Antibiotics are used to treat SSI. Some patients may need another surgery to treat the infection. The doctor will discuss treatment options with you. What are some of the things that hospitals are doing to prevent SSIs? Soap and water or alcohol hand rub are used before and after caring for each patient. Special soap is used to clean surgery workers hands and arms just before the surgery. Masks, gowns, gloves and hair covers are worn during the surgery to keep the area clean. Hair in the surgery area may be removed with clippers (not razors). A special soap that kills germs is used to clean the skin at the surgery site. Antibiotics may be given before the surgery starts. What can you do to prevent SSIs? Before surgery: You may be asked to shower or bathe with a special soap that kills germs the night before and the day of surgery. Use the soap as you were told. If you smoke, stop or cut down. Ask your doctor about ways to quit. Do not shave near where you will have surgery. Shaving can irritate the skin and make it easier to get and infection. After surgery: Be sure that the doctors and nurses clean their hands before and after touching you. Be sure your family and friends clean their hands before and after visiting you. Do not be afraid to remind them. * Care for your wound at home as told by your doctor or nurse * Call your doctor right away if you have fever, redness, increased pain, or drainage at the surgery site. Further questions? Contact the doctor, nurse or the Infection Prevention and Control department if you have any questions. PATIENT RIGHTS AND RESPONSIBILITIES As a patient at [facility], you have the right to: Receive medical care and be informed of who is taking care of you Be treated with dignity and respect Have a family member/outside industrial sales representative of choice and your physician notified of your admission Receive information and actively participate in decisions about your care and treatment Refuse care, treatment and services Decide who may provide your support and speak for you Access yarsani and spiritual services Participate in ethical issues and questions about your care Receive private and confidential care Have appropriate assessment and management of your pain Know guest visitation restrictions or limitations Have an advance directive Access protective services Consent or refuse to participate in research studies or production or recordings, films or other images Have resolution of your complaints Receive information of hospital charges and payment methods Patient/patient outside industrial sales representative responsibilities are to: Provide information about health status to facilitate care, treatment and services Follow the treatment, plan, keep appointments and speak up when you do not understand the plan Respect the rights of other patients and healthcare personnel Follow organizational rules and regulations that support quality care and a safe environment Fulfill financial obligations as promptly as possible Bathing Before Surgery- Patients greater than 2 months of age You can help to lower your chance of infection at the site of your surgery by showering or bathing with a special soap called chlorhexidine gluconate (CHG). Germs live on your skin. This special soapwill help lower the amount of germs so they do not get into your surgery site. Special points to know: Do not use this soap if you know that you are allergic to CHG. Shower or bathe with CHG the night before and the morning of surgery. Do not shave the area of your body where the surgery will be done within 7 days of surgery. The CHG may make your skin a little dry, but do not use lotion. Steps for Bathing: Wash your hair as usual with your normal shampoo. Rinse your hair and body well after you shampoo to get rid all of the shampoo. Wash gently with the CHG from the neck down, but do not scrub the skin to hard. Be sure to wash thearea of your surgery very well. If showering, turn the water off while washing and then turn the water back onto rinse. Do not get CHG in the genital (private) area. Do not get CHG in the eyes, ears, nose or mouth. (If the soap gets into the eyes, flush them immediately with water). Do not wash with regular soap after CHG is used. Pat skin dry with a soft, clean towel. Patient should sleep in freshly laundered night clothes and report for surgery in clean clothes. [facility]* Perioperative Nursing Note - Luz Maria Willis RN - 02/14/2024 12:45 PM EDT PATIENT DIRECTED CALL DR PHELPS OFFICE FOR MEDICATION INSTRUCTIONS FOR DAY OF SURGERY. [facility] Evaluation + Plan note* Assessment & Plan Note - Cruzito Phelps MD - 02/10/2024 11:37 AM EDTAssociated Problem(s): Cigarette smoker motivated to quit Counseled her on smoking cessation risk factors modification she was she will work on smoking cessation. She is motivated. [facility] Miscellaneous Notes* Assessment & Plan Note - Cruzito Phelps MD - 02/10/2024 11:37 AM EDTAssociated Problem(s): Cigarette smoker motivated to quit Counseled her on smoking cessation risk factors modification she was she will work on smoking cessation. She is motivated. 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 There is deterioration in her wound looked healed almost healed the last time I saw her in the hospital however this time she has a necrotic tip that is black in color and looks worse than before. She had a tandem stenotic lesions in the CT angiogramthat were not apparent in the regular angiogram. After treating the inflow and stenting of the aorta will do left lower extremity angiogram and intervention. 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 There is deterioration in her wound looked healed almost healed the last time I saw her in the hospital however this time she has a necrotic tip that is black in color and looks worse than before. She had a tandem stenotic lesions in the CT angiogramthat were not apparent in the regular angiogram. After treating the inflow and stenting of the aorta will do left lower extremity angiogram and intervention. [facility] Evaluation + Plan note* Assessment & Plan Note - Cruzito Phelps MD - 02/10/2024 11:34 AM EDTAssociated Problem(s): Aortic stenosis We will do shockwave intravascular lithotripsy and stenting [facility] History of Present illness Narrative* Cruzito Phelps MD - 02/10/2024 11:20 AM EDT Images from the original note were not included. To: No primary care provider on file. HPI: Cari Hale is a 59 y.o. female with With left lower extremity critical limb ischemia with tissueloss she had angiogram that showed severe aortic stenosis. She had tandem stenotic lesions in the left lower extremity. CTA was done to evaluate this lesion rule out any aneurysmal disease or coral reef lesions. In my assessment that this can be treated with intravascular lithotripsy and stenting using VBX covered stent. She has deterioration in her left great toe that looks black at the tip. I do think that she may need intervention there as well. She is on aspirin and statin. She is working on smoking cessation. After the procedure we will do aspirin Plavix and statin.. Review of Systems: Review of Systems Constitutional: Negative. HENT: Negative. Respiratory: Negative. Cardiovascular: Negative. Gastrointestinal: Negative. Endocrine: Negative. Genitourinary: Negative. Musculoskeletal: Negative. Skin: Negative. Neurological: Negative. Hematological: Negative. Medications: Current Outpatient Medications on File Prior to Visit Medication Sig Dispense Refill aspirin 81 mg Take 1 tablet (81 mg total) by mouth in the morning. budesonide EC (ENTOCORT EC) 3 mg 24 hr capsule Take 2 capsules (6 mg total) by mouth every morning. buPROPion XL (WELLBUTRIN XL) 150 mg 24 hr tablet Take 1 tablet (150 mg total) by mouth in the morning. 30 tablet 6 ergocalciferol (DRISDOL) 1,250 mcg (50,000 unit) capsule Take 1 capsule (50,000 Units total) by mouth once a week. escitalopram (LEXAPRO) 10 mg tablet Take 1 tablet (10 mg total) by mouth in the morning. estradioL (ESTRACE) 2 mg tablet Take 1 tablet (2 mg total) by mouth Medrol Dose Pack scheduling ONLY. insulin aspart SUBCUTANEOUS PUMP (NovoLOG) 100 UNIT/ML patient supplied pump Inject 19 Units under the skin continuously. Patient to self-manage pump according to the following parameters: 19 units in 12 hours and then adds sliding scale with meals levothyroxine (SYNTHROID, LEVOTHROID) 100 MCG tablet Take 1 tablet (100 mcg total) by mouth in the morning. progesterone (PROMETRIUM) 100 mg capsule Take 1 capsule (100 mg total) by mouth in the morning. propranoloL (INDERAL) 20 mg tablet Take 1 tablet (20 mg total) by mouth in the morning and 1 tablet(20 mg total) before bedtime. rosuvastatin (CRESTOR) 5 mg tablet Take 1 tablet (5 mg total) by mouth in the morning. clopidogreL (PLAVIX) 75 mg tablet Take 1 tablet (75 mg total) by mouth in the morning. (Patient nottaking: Reported on 02/10/2024) 30 tablet 12 No current facility-administered medications on file prior to visit. Past Medical History: Past Medical History: Diagnosis Date FHx: tremor Hypercholesteremia Hypothyroidism Type 1 diabetes (CMS-HCC) Past Surgical History: Past Surgical History: Procedure Laterality Date BACK SURGERY CARDIAC CATHETERIZATION THYROID SURGERY Vascular Invasive bilat lower extremity angiogram Left 01/21/2024 Performed by Cruzito Phelps MD at [facility] CARDIAC CATH LABS Social and Family History: Social History Socioeconomic History Marital status: Spouse name: Not on file Number of children: Not on file Years of education: Not on file Highest education level: Not on file Occupational History Not on file Tobacco Use Smoking status: Not on file Smokeless tobacco: Not on file Substance and Sexual Activity Alcohol use: Not on file Drug use: Not on file Sexual activity: Not on file Other Topics Concern Not on file Social History Narrative Not on file Social Determinants of Health Financial Resource Strain: Not on file Food Insecurity: No Food Insecurity (02/10/2024) Hunger Screening Food Insecurity - Worry: Never True Food Insecurity - Inability: Never True Transportation Needs: Not on file Physical Activity: Not on file Stress: Not on file Social Connections: Not on file Interpersonal Safety: Not on file Housing Instability: Not on file History reviewed. No pertinent family history. Recent Labs: Recent and relative labs were reviewed and interpreted and contributed to the assessment and plan below. Vitals: Ht 157.5 cm (5' 2 ) Wt 58.7 kg (129 lb 6.4 oz) LMP 01/11/2024 BMI 23.67 kg/m Body mass index is 23.67 kg/m . Physical Exam: Physical Exam Constitutional: Appearance: Normal appearance. HENT: Head: Normocephalic and atraumatic. Mouth/Throat: Mouth: Mucous membranes are moist. Eyes: Extraocular Movements: Extraocular movements intact. Pupils: Pupils are equal, round, and reactive to light. Cardiovascular: Rate and Rhythm: Normal rate and regular rhythm. Pulmonary: Effort: Pulmonary effort is normal. Breath sounds: Normal breath sounds. Abdominal: General: Abdomen is flat. Bowel sounds are normal. Palpations: Abdomen is soft. Musculoskeletal: General: Normal range of motion. Cervical back: Normal range of motion. Skin: General: Skin is warm and dry. Neurological: General: No focal deficit present. Mental Status: She is alert and oriented to person, place, and time. Mental status is at baseline. Psychiatric: Mood and Affect: Mood normal. Behavior: Behavior normal. Thought Content: Thought content normal. Judgment: Judgment normal. 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 There is deterioration in her wound looked healed almost healed the last time I saw her in the hospital however this time she has a necrotic tip that is black in color and looks worse than before. She had a tandem stenotic lesions in the CT angiogramthat were not apparent in the regular angiogram. After treating the inflow and stenting of the aorta will do left lower extremity angiogram and intervention. 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 While intending to generate a timely document that accurately reflects the content of the visit, no guarantee can be provided that every grammatical or spelling mistake has been or will be identified or corrected. Thank you for your understanding. [facility] Miscellaneous Notes* Telephone Encounter - Sonia Valdivia - 01/24/2024 2:26 PM EDT error [facility] in this [facility]06[facility] Telephone encounter Note* Telephone Encounter - Sonia Valdivia - 01/24/2024 2:26 PM EDT error [facility] Miscellaneous Notes* Telephone Encounter - Tre Bullock - 01/13/2024 11:53 AM EDT Pt calling stating the 3 Rx's prescribed today were not sent into the pharmacy. [facility] [address] [phone]. Wellbutrin, Plavix and nicotine patch. * Telephone Encounter - Ximena France LPN - 01/13/2024 11:53 AM EDT Medications have been re ordered documented [facility]06-13-2024 Telephone encounter Note* Telephone Encounter - Tre Bullock - 01/13/2024 11:53 AM EDT Pt calling stating the 3 Rx's prescribed today were not sent into the pharmacy. [facility] [address] [phone]. Wellbutrin, Plavix and nicotine patch. 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 Left lower extremity angiogram and intervention as soon as possible * Assessment & Plan Note - Cruzito Phelps MD - 01/13/2024 11:22 AM EDT Associated Problem(s): Cigarette smoker motivated to quit So we will prescribe bupropion XL 150 twice daily and nicotine patches [facility] in this [facility]06[facility] History of Present illness Narrative* Cruzito Phelps MD - 01/13/2024 10:20 AM EDT Images from the original note were not included. To: No primary care provider on file. HPI: Cari Hale is a 59 y.o. female with Left lower extremity critical limb ischemia because of ingrowing nail surgery and ischemia. She is diabetic for very long And active smoker. Noninvasive testingshows evidence of popliteal and tibial occlusive disease Review of Systems: Review of Systems Constitutional: Negative. HENT: Negative. Respiratory: Negative. Cardiovascular: Negative. Gastrointestinal: Negative. Endocrine: Negative. Genitourinary: Negative. Musculoskeletal: Negative. Skin: Negative. Neurological: Negative. Hematological: Negative. Medications: Current Outpatient Medications on File Prior to Visit Medication Sig Dispense Refill aspirin 81 mg Take 1 tablet (81 mg total) by mouth in the morning. ergocalciferol (DRISDOL) 1,250 mcg (50,000 unit) capsule Take 1 capsule (50,000 Units total) by mouth once a week. estradioL (ESTRACE) 2 mg tablet Take 1 tablet (2 mg total) by mouth Medrol Dose Pack scheduling ONLY. levothyroxine (SYNTHROID, LEVOTHROID) 100 MCG tablet Take 1 tablet (100 mcg total) by mouth in the morning. progesterone (PROMETRIUM) 100 mg capsule Take 1 capsule (100 mg total) by mouth in the morning. No current facility-administered medications on file prior to visit. Past Medical History: No past medical history on file. Past Surgical History: No past surgical history on file. Social and Family History: Social History Socioeconomic History Marital status: Spouse name: Not on file Number of children: Not on file Years of education: Not on file Highest education level: Not on file Occupational History Not on file Tobacco Use Smoking status: Not on file Smokeless tobacco: Not on file Substance and Sexual Activity Alcohol use: Not on file Drug use: Not on file Sexual activity: Not on file Other Topics Concern Not on file Social History Narrative Not on file Social Determinants of Health Financial Resource Strain: Not on file Food Insecurity: No Food Insecurity (01/13/2024) Hunger Screening Food Insecurity - Worry: Never True Food Insecurity - Inability: Never True Transportation Needs: Not on file Physical Activity: Not on file Stress: Not on file Social Connections: Not on file Interpersonal Safety: Not on file Housing Instability: Not on file No family history on file. Recent Labs: Recent and relative labs were reviewed and interpreted and contributed to the assessment and plan below. Vitals: BP 141/83 (BP Site: Left Arm, BP Postition: Sitting, BP CUFF SIZE: M (9-13 inches)) Pulse 90 Wt58.4 kg (128 lb 12.8 oz) There is no height or weight on file to calculate BMI. Physical Exam: Physical Exam Constitutional: Appearance: Normal appearance. HENT: Head: Normocephalic and atraumatic. Mouth/Throat: Mouth: Mucous membranes are moist. Eyes: Extraocular Movements: Extraocular movements intact. Pupils: Pupils are equal, round, and reactive to light. Cardiovascular: Rate and Rhythm: Normal rate and regular rhythm. Pulmonary: Effort: Pulmonary effort is normal. Breath sounds: Normal breath sounds. Abdominal: General: Abdomen is flat. Bowel sounds are normal. Palpations: Abdomen is soft. Musculoskeletal: General: Normal range of motion. Cervical back: Normal range of motion. Skin: General: Skin is warm and dry. Neurological: General: No focal deficit present. Mental Status: She is alert and oriented to person, place, and time. Mental status is at baseline. Psychiatric: Mood and Affect: Mood normal. Behavior: Behavior normal. Thought Content: Thought content normal. Judgment: Judgment normal. 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 Left lower extremity angiogram and intervention as soon as possible Cari was seen today for peripheral vascular disease and leg pain. 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 - buPROPion XL (WELLBUTRIN XL) 150 mg 24 hr tablet; Take 1 tablet (150 mg total) by mouth in the morning. - nicotine 21-14-7 mg/24 hr patch, TD daily, sequential; Place 14 mg on the skin once for 1 dose. Cruzito Phelps MD, SOLOMON, RPVI, FSVS, FACS [facility] This note was created with the assistance of a speech recognition program. While intending to generate a timely document that accurately reflects the content of the visit, no guarantee can be provided that every grammatical or spelling mistake has been or will be identified or corrected. Thank you for your understanding. [facility]27[facility] Evaluation note* Encounter Date Diagnosis Assessment Notes Treatment Notes Treatment Clinical Notes Jul, Functional diarrhea (ICD-10 - K59.1) [facility] Other 06-15-2023 Evaluation note* Encounter Date Diagnosis Assessment Notes Treatment Notes Treatment Clinical Notes Dec, Lower abdominal pain (ICD-10 - R10.30) [facility] Other 06-01-2023 Hospital Discharge instructions Patient Education [...] glass of hard liquor (44 mL). Lifestyle [place] your teeth every morning and night with [...] provider. Document Revised: 01/14/2022 Document Reviewed: 01/14/2022 [employer] Patient Education 2022 [employer] 12/31/2022 16:32:26 Preventing Diabetes Mellitus Complications Preventing [...] lead to tooth loss. To prevent this: [place] your teeth twice a day. Floss at [...] health professional. Where to find more information [place] Diabetes Association: www.diabetes.org Association of Diabetes Care [...] provider. Document Revised: 09/06/2020 Document Reviewed: 09/06/2020 [employer] Patient Education 2022 [employer] 12/31/2022 16:32:25 Managing Your Hypertension Managing [...] more information National Heart, Lung, and Blood [place]: www.nhlbi.nih.gov [place] Heart Association: www.heart.org Contact a health care [...] provider. Document Revised: 04/02/2022 Document Reviewed: 04/02/2022 [employer] Patient Education 2022 [employer] 12/31/2022 16:32:21 Major Depressive Disorder, Adult Major [...] things, which may include: Your personality traits. [place] or conditioned behaviors or thoughts or feelings [...] your health care provider. General instructions Take sgde-hia-bcnuzuv and prescription medicines only as told by your health care provider. Eat a healthy diet and get plenty of sleep. Consider joining a support group. Your health care provider may be able to recommend one. Keep all follow-up visits as told by your health care provider. This is important. Where to find more information National [place] on Mental Illness: www.diana.org [place].S. National [place] of Mental Health: www.nimh.nih.gov Contact a health [...] department or: Call your local emergency services (116 in the [place] Call a suicide crisis helpline, such as the National Suicide Prevention Lifeline at or 861 in the [place]. This is open 24 hours a day in the [place] Text the Crisis Text Line at 073142 (in the [place] Summary Major depressive disorder [...] provider. Document Revised: 02/11/2022 Document Reviewed: 06/29/2020 [employer] Patient Education 2022 [employer]. 12/31/2022 16:32:20 Hypertension, Adult Hypertension, Adult High [...] follow-up visits. This is important. Medicines Take bqfy-nxx-euzziwf and prescription medicines only as told by [...] provider. Document Revised: 05/26/2022 Document Reviewed: 05/26/2022 [employer] Patient Education 2022 [employer]. 12/31/2022 16:32:19 Heart Disease Prevention Heart Disease [...] of hard liquor (44 mL). Medicines Take ripa-hau-mmaemse and prescription medicines only as told by [...] Centers for Disease Control and Prevention: www.cdc.gov/heartdisease [place] Heart Association: www.heart.org Summary Heart disease is [...] provider. Document Revised: 03/18/2022 Document Reviewed: 03/18/2022 [employer] Patient Education 2022 [employer]. 12/31/2022 16:32:17 Diabetes Mellitus and Nutrition, Adult [...] Carrots. Green beans. Tomatoes. Peppers. Onions. Cucumbers. [place] sprouts. Grains Whole grains, such as whole-wheat [...] meet with a certified diabetes care and special education aide? Do I need to meet with a dietitian? What number can I call if I have questions? When are the best times to check my blood glucose? Where to find more information: [place] Diabetes Association: diabetes.org Academy of Nutrition and Dietetics: eatright.org National [place] of Diabetes and Digestive and Kidney Diseases: [...] provider. Document Revised: 02/19/2021 Document Reviewed: 02/19/2021 [employer] Patient Education 2022 [employer]. 12/31/2022 16:32:16 Diabetes Mellitus and Foot Care Diabetes Mellitus and Foot Care Foot care is an important part of your health, especially when you have diabetes. 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 Break more easily. Heal more slowly. [...] provider immediately. Where to find more information [place] Diabetes Association: www.diabetes.org Association of Diabetes Care [...] provider. Document Revised: 02/06/2021 Document Reviewed: 02/06/2021 [employer] Patient Education 2022 [employer] 12/31/2022 16:32:15 Diabetes Mellitus and Exercise Diabetes [...] plan? Your health care provider or certified mortician can help you make a plan for [...] (heat stroke). Where to find more information [place] Diabetes Association: www.diabetes.org Summary Exercising regularly is important for overall health, especially for people who have diabetes mellitus. Exercising has many health benefits. It increases muscle strength and bone density and reduces bodyfat and stress. It also lowers and controls blood glucose. Your health care provider or certified mortician can help you make an activity plan [...] provider. Document Revised: 04/15/2020 Document Reviewed: 04/15/2020 [employer] Patient Education 2022 [employer] 12/31/2022 16:32:13 DASH Eating Plan DASH Eating [...] Dairy Whole or 2% milk, cream, and ltpu-qzs-porh. Whole or full-fat cream cheese. Whole-fat or sweetened yogurt. Full-fat cheese. Nondairy creamers. Whipped toppings. Processed cheese and cheese spreads. Fats and oils Butter. Stick margarine. Lard. Shortening. Ghee. [place] fat. Tropical oils, such as coconut, palm kernel, or palm oil. Seasonings and condiments Onion salt, garlic salt, seasoned salt, table salt, and sea salt. Worcestershire sauce. Tartar sauce. Barbecue sauce. Teriyaki sauce. [...] more information National Heart, Lung, and Blood [place]: www.nhlbi.nih.gov [place] Heart Association: www.heart.org Academy of Nutrition and [...] provider. Document Revised: 06/21/2020 Document Reviewed: 06/21/2020 [employer] Patient Education 2022 [employer]. [facility] [place] 03-14-[address] [facility]04-14-2022 Evaluation note* Encounter Date Diagnosis Assessment Notes Treatment Notes Treatment Clinical Notes Oct, Fecal incontinence (ICD-10 - R15.9) [facility] Other 03-30-2022 Evaluation note* Encounter Date Diagnosis [...] WAS ON PREDNISONE PROCEED WITH FLEX SIG [facility] Other Evaluation + Plan note Future Appointments Appointment Date:05/27/2022 01:00:00 PM Scheduled Provider: Location:[facility] Appointment Type:FM Medicare Wellness Subsequent Appointment Date:06/11/2022 03:40:00 PM Scheduled Provider:Renate DIALLO DO Location:[facility] Appointment Type: Open Future Scheduled Tests Laboratory* HgbA1c 05/12/22 * Lab Miscellaneous-LC 05/26/21 * Microalbumin Level Urine 05/12/22 * CBC w/ Auto Diff 05/12/22 * Comprehensive Metabolic Panel 05/12/22 * Estradiol Level 05/12/22 * Lipid Panel 05/12/22 * Progesterone Level 05/12/22 * Thyroid Stimulating Hormone 05/12/22 Radiology* MA Mamm Screen w/CAD if perf and 3D Jace 05/26/21 [facility] [place] Evaluation + Plan note Future Appointments Appointment Date:06/11/2022 03:40:00 PM Scheduled Provider:Renate DIALLO DO Location:[facility] Appointment Type: Open Diagnostic Tests Pending * Estradiol Level [facility]03[facility] Future Appointments Appointment Date:01/03/2024 02:00:00 PM Scheduled Provider: Location:[facility] Appointment Type:FM Medicare Wellness Subsequent Future Scheduled Tests Radiology* MA Mamm Screen w/CAD if perf and 3D Jace 12/31/22 [facility] [place] Evaluation + Plan note Future Appointments Appointment Date:01/03/2024 02:00:00 PM Scheduled Provider: Location:[facility] Live Appointment Type: Medicare Wellness Subsequent Future Scheduled Tests Laboratory* CBC w/ Auto Diff 01/04/23 * Comprehensive Metabolic Panel 01/04/23 Radiology* MA Mamm Screen w/CAD if perf and 3D Jace 12/31/22 [facility] note[facility] [email or web address] Other Evaluation noteNo assessment information available [facility] Work Phone: Evaluation note* Diagnosis Mass of left lung Abnormal CT scan, chest Nonspecific (abnormal) findings on radiological and other examination of other intrathoracic organs [facility] Cigarette smoker motivated to quit- Primary PVD (peripheral vascular disease) ([facility]) Unspecified peripheral vascular disease 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 ([facility]) [facility] Diagnosis PAD (peripheral artery disease) ([facility] Primary Unspecified peripheral vascular disease [facility] Diagnosis 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 ([facility] Primary Cigarette smoker motivated to quit Aortic valve stenosis, etiology of cardiac valve disease unspecified [facility] Diagnosis PVD (peripheral vascular disease) ([facility] Primary Unspecified peripheral vascular disease 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 ([facility]) [facility] Diagnosis 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 ([facility])- Primary Cigarette smoker motivated to quit Stenosis of aorta documented in this encounter [facility] System[facility] and physical note Author Geovanny Schaffer [facility] October 13, 2022 2:16pm Note Date/Time October 13, 2022 2:1 6pm [facility] [address] [place] [address] Gastroenterology H&P Signed Patient: Cari Hale MR#: [id number] : 1965 Acct:[id number] Age/Sex: 57 / F Adm Date: 3 Loc: Room: Type: [facility] Attending Dr: Geovanny Schaffer MD Copies to: Geovanny Schaffer MD Renate Bianca Diallo, ~ Date of Service: 10/13/2022 HISTORY & [...] signed by Geovanny Schaffer MD> 10/13/22 1416 [facility] Work Phone: Hospital course Narrative No data available for this section [facility] Hospital Discharge instructions No data available for this section [facility] [place] [facility] Discharge instructions Additional Instructions DISCHARGE INSTRUCTIONS [...] NOT operate machinery such as power tools, lawn mowers, snow blowers, sewing machines, etc. for 24 hours. - [...] problems. -Follow up with PCP. -Office number [phone].[facility] Work Phone: InstructionsNot on filedocumented in this encounter [facility] SystemInstructionsNot on filedocumented in this encounter [facility] SystemInstructionsNot on filedocumented in this encounter [facility]ructionsNot on filedocumented in this encounter [facility] SystemInstructionsNot on filedocumented in this encounter [facility] SystemInstructionsNot on filedocumented in this encounter [facility] SystemInstructionsNot on filedocumented in this encounter [facility] System[facility] note No data available for this section [facility] [place] Assessments No Assessments Information Available Summary Purpose Family History Relationship Condition Age at Onset Recorded Date/T anabel Not Specified Diabetes mellitus Unknown grandparent Diabetes mellitus Unknown sister Diabetes mellitus Unknown Advance Directives Advance Directive Response Recorded Date/ Time Advance Directives No June 2:41pm Chief Complaint and Reason for Visit Chief Complaint Diarrhea, Abdominal Pain, Fecal Incontinence Reason for Referral Specialty Diagnoses / Procedures Referred By Contac t Referred To Contact Diagnoses 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 ([facility]) Cigarette smoker motivated to quit Stenosis of aorta Procedures Vas aorta/iliac duplex complete Cruzito Phelps MD [address], [address] [address] Referral ID Status Reason Start Date Expiration Date V isits Requested Visits Authorized [id number] Pending Review 03/16/2024 03/16/2025 1 1 Specialty Diagnoses / Procedures Referred By Contac t Referred To Contact Radiology Diagnoses Mass of left lung Abnormal CT scan, chest Procedures PET CT SKULL BASE TO MID THIGH Renate Diallo, [address] [place] [address] Referral ID Status Reason Start Date Expiration Date Visits Re quested Visits Authorized [id number] Closed 08/08/2024 09/13/2024 1 1 Additional Source Comments INFORMATION SOURCE (unrecogn ized section and content) DATE CREATED AUTHOR 01/19/2022 Sohail Velez pitmoises DATE CREATED AUTHOR AUTHOR'S ORGANIZ ATION 10/17/2023 [facility] DATE CREATED AUTHOR AUTHOR'S ORGANIZ ATION 03/23/2024 [facility] DATE CREATED AUTHOR AUTHOR'S ORGANIZ ATION 06/14/2024 [facility] DATE CREATED AUTHOR AUTHOR'S ORGANIZ ATION 08/19/2024 [facility] DATE CREATED AUTHOR AUTHOR'S ORGANIZ ATION 09/16/2024 [facility] REASON FOR VISIT (unrecogniz ed section and content) Specialty Diagnoses / Procedures Referred By Contac t Referred To Contact Radiology Diagnoses Mass of left lung Abnormal CT scan, chest Procedures PET CT SKULL BASE TO MID THIGH Renate Diallo DO [address] [place] [address] Referral ID Status Reason Start Date Expiration Date Visits Re quested Visits Authorized [id number] Closed 08/08/2024 09/13/2024 1 1 Reason Comments Peripheral Vascular Disease New Referral from Zoila Sanchez for Dr. Phelps for PVD (peripheral vascular disease) records requested Leg Pain Specialty Diagnoses / Procedures Referred By Contac t Referred To Contact Vascular Surgery Diagnoses PVD (peripheral vascular disease) ([facility]) Zoila Sanchez PA-C [address] [place] [address] [address], [facility] [place] [address] [facility] [address] [address] Referral ID Status Reason Start Date Expiration Date Visits Requested Visits Authorized [id number] Pending Review Specialty Services Required 01/03/2024 01/02/2025 1 1 Reason Onset Date Comments Med Refill 01/13/2024 Reason Onset Date Comments Med Refill 02/23/2024 Reason Onset Date Comments Med Refill 02/24/2024 Reason Comments P/O ANGIO Critical limb ischemia of left lower ext remity with gangren Reason Comments Med Change Request Patient Care team informatio n (unrecognized section and content) Team Status: Active Member Role Status Dates Renate Diallo DO Primary Care Provider Active Team Status: Inactive Member Role Status Dates Renate Diallo DO Primary Care Provider Active Geovanny Schaffer MD Attending Provider Active Stars Coordinator Relationship Specialty Start Date End Date Renate Diallo DO [address] [place] [address] PCP - General 11/15/12 Stars Coordinator Relationship Specialty Start Date End Date Flora Escalera SALESPERSON WOMEN'S DRESSES-ARTIFICIAL TEETH INSPECTOR [address] [place] [address], [place] [address] PCP - General Nurse Practitioner 02/14/24 Stars Coordinator Relationship Specialty Start Date End Date Flora Escalera SALESPERSON WOMEN'S DRESSES-ARTIFICIAL TEETH INSPECTOR [address] [place] [address], [place] [address] PCP - General Nurse Practitioner 02/14/24 Stars Coordinator Relationship Specialty Start Date End Date Flora Escalera SALESPERSON WOMEN'S DRESSES-ARTIFICIAL TEETH INSPECTOR [address] [place] [address], [place] [address] PCP - General Nurse Practitioner 02/14/24 Stars Coordinator Relationship Specialty Start Date End Date Flora Escalera SALESPERSON WOMEN'S DRESSES-ARTIFICIAL TEETH INSPECTOR [address] [place] [address], [place] [address] PCP - General Nurse Practitioner 02/14/24 Stars Coordinator Relationship Specialty Start Date End Date Flora Escalera, SALESPERSON WOMEN'S DRESSES-ARTIFICIAL TEETH INSPECTOR [address] [place] [address], [place] [address] PCP - General Nurse Practitioner 02/14/24 FOR RECORDS PERTAINING TO PATIENTS WHO ARE [...] BE BASED ON THE PRIMARY CLINICAL RECORDS. [facility] [employer] [facility]. provides no warranty or guarantee of the accuracy or completeness of information in this document.
== END 2024-09-26 16:59 | disposition home or self-care (01) ==
LOC: US 16:58
PROVIDERS: PCP Family Medicine; Visit Provider Student in an Organized Health Care Education/Training Program
DX: I70.262 Atherosclerosis of native arteries of extremities with gangrene, left leg (principal); F17.210 Nicotine dependence, cigarettes, uncomplicated; Q25.1 Coarctation of aorta
CPT/HCPCS: 76706

== ENCOUNTER 2024-10-30 15:40 | Outpatient (OUT) | payer OTHER, SELFPAY ==
[2024-10-30 15:51] LABS: Basophils Absolute Auto 0.1 10^3/uL (0.0-0.1); Basophils Percent Auto 0.8 % (0.2-2.0); Eosinophils Absolute Auto 0.2 10^3/uL (0.0-0.7); Eosinophils Percent Auto 1.4 % (0.9-7.0); Hematocrit 37.8 % (36.0-48.0); Hemoglobin 12.9 g/dL (12.0-16.0); Immature Granulocytes Abs Auto 0.03 10^3/uL (0.00-0.03); Immature Granulocytes Pct Auto 0.3 % (0.0-0.5); Lymphocytes Absolute Auto 4.2 10^3/uL (1.2-3.8); Lymphocytes Percent Auto 36.1 % (20.5-60.0); Mean Corpuscular HGB Conc 34.1 g/dL (29.9-35.2); Mean Corpuscular Hemoglobin 30.8 pg (26.7-34.0); Mean Corpuscular Volume 90.2 fL (81.0-99.0); Mean Platelet Volume 9.2 fL (9.5-13.5); Monocytes Absolute Auto 0.9 10^3/uL (0.3-0.8); Monocytes Percent Auto 7.8 % (1.7-12.0); Neutrophils Absolute Auto 6.3 10^3/uL (1.4-6.5); Neutrophils Percent Auto 53.6 % (43.0-75.0); Platelet Count 342 10^3/uL (150-450); Red Blood Count 4.19 10^6/uL (4.20-5.40); Red Cell Distribution Width 12.4 % (11.0-15.0); White Blood Count 11.7 10^3/uL (4.0-11.0)
[2024-10-30 16:31] LABS: Estimated Average Glucose 143 mg/dL; Glycohemoglobin A1C 6.6 % (4.5-6.2)
[2024-10-30 16:40] LABS: Alanine Aminotransferase 26 U/L (14-59); Anion Gap 14.1; Aspartate Amino Transferase 26 U/L (15-37); BUN Creatinine Ratio 14.9; Calcium 9.2 mg/dL (8.5-10.1); Carbon Dioxide 28.5 mmol/L (21.0-32.0); Chloride 101 mmol/L (98-107); Chol HDL Ratio 1.6; Cholesterol 193 mg/dL (<=200); Estimated GFR (African America >60 (>=60 mL/min/1.73m^2); Estimated GFR (Non-African Ame 56 (>=60 mL/min/1.73m^2); Glucose 223 mg/dL (74-106); HDL Cholesterol 119 mg/dL (40-60); Magnesium 1.3 mg/dL (1.8-2.4); Potassium 3.6 mmol/L (3.5-5.1); Sodium 140 mmol/L (136-145); Thyroid Stimulating Hormone <0.007 uIU/mL (0.358-3.740); Triglycerides 113 mg/dL (<=150); VLDL CHOLESTEROL 22.6 mg/dL
== END 2024-10-30 15:41 | disposition home or self-care (01) ==
LOC: LAB 15:40
PROVIDERS: PCP Family Medicine
DX: I25.5 Ischemic cardiomyopathy (principal); E11.9 Type 2 diabetes mellitus without complications; Z79.4 Long term (current) use of insulin; I25.10 Atherosclerotic heart disease of native coronary artery without angina pectoris; E78.2 Mixed hyperlipidemia
CPT/HCPCS: 36415; 80048; 80061; 83036; 83735; 84443; 84450; 84460; 85025

== ENCOUNTER 2024-11-15 12:51 | Outpatient (OUT) | payer OTHER, SELFPAY ==
[2024-11-15] MEDS: ALBUTEROL SULFATE 2.5 MG/3 ML VIAL NEB IH (14:33)
--- NOTE | 2024-11-15 14:35 | RT_ITS ---
[facility] Test Date: 2024-11-15 Pat Name: CARI HALE Department: Room: - Gender: Female Academic Administrator: Divine Sharif RRT : 1965 Requested By: [id number] Order Number: [id number] Reading MD: Yunier Prather Interpretive Statements Pulmonary function testing was completed according to ATS criteria. Findings were considered accurate and reproducible. Both pre- and post-bronchodilator values utilized for spirometry. No prior studies available for comparison. Spirometry (based on pre-bronchodilator values): -FEV1/FVC: Reduced @ 66% -FEV1: Moderately reduced @ 74% (1.76L) -FVC: Normal @ 88% -WMA29-12%: Reduced @ 45% -There is no significant bronchodilator response. Lung volumes by plethysmography: -RV: Increased @ 159% -TLC: High normal @ 120% Diffusion capacity: -DLCO: Moderately-severe reduction @ 53% when corrected for Hb 12.9g/dL Flow-volume loop: -Moderate obstructive pattern Impressions: -Spirometry suggests moderate obstruction without a positive bronchodilator response. An elevated RV suggests air trapping. Moderately-severe reduction in diffusion capacity. Overall study is compatible with COPD/emphysema. Clinical correlation required. Electronically Signed On 11-15-2024 15:14:40 EDT by Yunier Prather
== END 2024-11-15 12:52 | disposition home or self-care (01) ==
LOC: CARD 12:51
PROVIDERS: PCP Family Medicine
DX: J95.811 Postprocedural pneumothorax (principal)
CPT/HCPCS: 94060; 94726; 94729

== ENCOUNTER 2025-02-23 12:49 | Outpatient (OUT) | payer OTHER, SELFPAY ==
--- NOTE | 2025-02-23 13:00 | CA_ITS ---
[facility] Test Date: 2025-02-23 Pat Name: CARI HALE Department: Room: - Gender: Female Engineer Exhauster: : 1965 Requested By: [id number] Order Number: [id number] Reading MD: SUKHJINDER MENDIOLA M.D. Interpretive Statements Summary of the findings: Right leg: JENNIFER= 0.96; TBI= 0.59. Doppler waveforms demonstrate biphasic flow at the posterior tibial and dorsalis pedis arteries. Left leg: JENNIFER= 0.98; TBI= 0.68. Doppler waveforms demonstrate biphasic flow at the posterior tibial and dorsalis pedis arteries. Segmental pressures: Segmental pressures suggest signficant infrapopliteal disease bilaterally. Pulse volume recordings: PVRs at the high thigh and below knee show normal waveforms; at the ankle levels show dampened waveforms. Conclusion: Right and left ankle-brachial indices are borderline bilaterally at rest. Toe-brachial indices are suggestive of PAD. Segmental pressures suggest signficant infrapopliteal disease bilaterally. Pulse volume recordings indicate reduced overall resting arterial flow at the ankle level. The study shows evidence of PAD with borderline reduced overall arterial flow at rest. Electronically Signed On 02-24-2025 8:40:48 EDT by SUKHJINDER MENDIOLA M.D.
== END 2025-02-23 12:50 | disposition home or self-care (01) ==
LOC: CARD 12:50
PROVIDERS: PCP Family Medicine; Visit Provider Student in an Organized Health Care Education/Training Program
DX: I35.0 Nonrheumatic aortic (valve) stenosis (principal); F17.210 Nicotine dependence, cigarettes, uncomplicated; I73.9 Peripheral vascular disease, unspecified
CPT/HCPCS: 93923

== ENCOUNTER 2025-03-27 13:06 | Outpatient (OUT) | payer OTHER, SELFPAY ==
--- OUTSIDE RECORDS SUMMARY | 2025-03-27 13:09 | XMS_ITS | Encounter Summary ---
Author Organization [facility] Address [address], [address] [place] [address] Care Team Providers Care Vice President Mission Integration Name Role Phone LoganPanchito Primary Care Provider [phone] Encounter Details Date Type Department Care Team ([facility] st Contact Info) Description 10/06/2024 [facility] [address] [place], [place] [id number] Darya Hall, RN Social History Tobacco Use Types Packs/Day Years Used Date Smoking Tobacco: Every Day Cigarettes 1 31.6 Started: 1993 Smokeless Tobacco: Never Alcohol Use Standard Drinks/Week Comments Yes 0 (1 standard drink = 0.6 oz pur e alcohol) AUDIT-C Answer Date Recorded Q1: How often do you have a drink containing alcohol? 4 or more times a week 04/04/2024 Q2: How many drinks containi ng alcohol do you have on a typical day when you are drinking? 1 or 2 Q3: How often do you have si x or more drinks on one occasion? Never 04/04/2024 Overall Financial Resource Strain (CARDIA) Answe r Date Recorded How hard is it for you to pa y for the very basics like food, housing, medical care, and heating? Not hard at all 03/28/2024 PHQ-2 Answer Date Recorded PHQ-9 Total Score 2 04/04/2024 Exercise Vital Sign Answer Date Recorde d On average, how many days pe r week do you engage in moderate to strenuous exercise (like a brisk walk)? 0 days 04/04/2024 On average, how many minutes do you engage in exercise at this level? 0 min 04/04/2024 Hunger Vital Sign Answer Date Recorded Within the past 12 months, y ou worried that your food would run out before you got the money to buy more. Never true 03/28/20 24 Within the past 12 months, t he food you bought just didn't last and you didn't have money to get more. Never true 03/28/2024 PRAPARE - Transportation Answer Date Re corded Lack of Transportation (Medical) Not on file 03/28/2024 In the past 12 months, has l ack of transportation kept you from meetings, work, or from getting things needed for daily living? No 03/28/2024 Housing Stability Vital Sign Answer Stu e Recorded Unable to Pay for Housing in the Last Year Not o n file 03/28/2024 Number of Times Moved in the Last Year Not on fi le 03/28/2024 At any time in the past 12 m [facility], were you homeless or living in a group home (including now)? No 03/28/2024 Food Insecurity Answer Date Recorded Within the past 12 months, y ou worried that your food would run out before you got the money to buy more. 1 03/28/2024 Within the past 12 months, t he food you bought just didn't last and you didn't have money to get more. 1 03/28/2024 Comments Unknown Sex and Gender Information Value Date Recorded Sex Assigned at Not on file Legal Sex Female 4:43 PM EST Gender Identity Not on file Sexual Orientation Not on file documented as of this encounter Plan of Treatment Upcoming Encounters Date Type Department Care Team (Late st Contact Info) Description 04/11/2025 4:00 PM EDT Office Visit [facility] Primary Care [address] [place] [address] Panchito Ford DO [address] [place] [address] 3 mom f/u documented as of this encounter Visit Diagnoses Not on filedocumented in this encounter Additional Health Concerns Assessment Noted Time A fall risk assessment has been complete d for the patient 04/04/2024 3:05 PM EDT documented as of this encounter Care Teams Vice President Mission Integration Relationship Specialty Start Date End Date Panchito Ford DO [address] [place] [address] PCP - General 11/15/12 documented as of this encounter
--- OUTSIDE RECORDS SUMMARY | 2025-03-27 13:09 | XMS_ITS | Encounter Summary ---
Author Organization [facility] Address [id number] [address] 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 ([facility]); Cigarette smoker motivated to quit Social History Tobacco Use Types Packs/Day Years Used Date Smoking Tobacco: Every Day Cigarettes Passive Smoke Exposure: Past Smokeless Tobacco: Never Comments:HAS CUT BACK, SMOKE D FOR 45 YEARS AVERAGE 1 PPD Alcohol Use Standard Drinks/Week Comments Yes 0 (1 standard drink = 0.6 oz pur e alcohol) 2-3 WINE NIGHTLY Childcare Answer Date Recorded Childcare Unknown 01/09/2019 Employment Answer Date Recorded Employment Unknown 01/09/2019 Hunger Screening Answer Date Recorded Within the past 12 months we worried whether our food would run out before we got money to buy more. Never True 03/16/2024 Within the past 12 months th e food we bought just didn't last and we didn't have money to get more. 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
--- OUTSIDE RECORDS SUMMARY | 2025-03-27 13:09 | XMS_ITS | Encounter Summary ---
Author Organization [facility] Address [address] [place] [address] Care Team Providers Care Metal Furniture Assembly Supervisor Name Role Phone Unavailable Primary Care Provider Unavailabl e Source Comments In the event this information is protected by the Federal Confidentiality of Alcohol and Drug AbusePatient Records regulations: The Federal rules restrict any use of the information to criminally investigate or prosecute any alcohol or drug abuse patient.[facility] Encounter Details Date Type Department Care Team (Late st Contact Info) Description 12/14/2024 Lab Requisition [facility] [address] [place] [address] Maite Alexis MD [address] [place] [address] Person encountering health services to consult on behalf of another person Social History Tobacco Use Types Packs/Day Years Used Date Smoking Tobacco: Former Cigarettes 1 39 Alcohol Use Standard Drinks/Week Comments Yes 12 (1 standard drink = 0.6 oz pu re alcohol) 2 bottles/wine on weekends Comments No Sex and Gender Information Value Date Recorded Sex Assigned at Not on file Legal Sex Female 9:51 AM EST Gender Identity Not on file Sexual Orientation Not on file 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 Answer Date of Assessment Author No 11/10/2016 4:45 PM EDT Do luis angel Blum K * Are you blind or do you have serious difficulty seeing, even when wearing glasses? Answer Date of Assessment Author No 11/10/2016 4:45 PM EDT Do luis angel Blum K * Do you have serious difficulty walking or climbing stairs? Answer Date of Assessment Author Yes 11/10/2016 4:45 PM EDT Kulwant Do n K * Do you have difficulty dressing or bathing? Answer Date of Assessment Author No 11/10/2016 4:45 PM EDT Do Kulwant n K * Because of a physical, mental, or emotional condition, do you have difficulty doing errands alone such as visiting a doctor's office or shopping? Answer Date of Assessment Author No 11/10/2016 4:45 PM EDT Do luis angel Blum documented as of this encounter Mental Status * Because of a physical, mental, or emotional condition, do you have serious difficulty concentrating, remembering, or making decisions? Answer Entry Date Author No 11/10/2016 4:45 PM EDT Do luis angel Blum documented in this encounter Plan of Treatment Not on file documented as of this encounter Procedures Procedure Name Priority Date/Time Associated Diagnosis Comments SURGICAL PATHOLOGY REFERENCE LAB CONSULT Routine 12/14/2024 4:52 PM EDT Person encountering health services to consult on behalf of another person documented in this encounter Results * SURGICAL PATHOLOGY REFERENCE LAB CONSULT (12/14/2024 4:52 PM EDT) Case Report Surgical Pathology Report Case: [id number] Authorizing Provider: Maite Alexis MD Collected: 12/14/2024 04:52 PM Ordering Location: [facility] Received: 12/14/2024 04:51 PM [facility] Pathologist: Daron Carroll MD Specimen: Block(s) and/or Slide(s), 11 SLIDES & 1 BLOCK [id number]; A3 12/19/2024 4:03 PM EDT [facility] FINAL DIAGNOSIS Lung, left upper lobe, wedge resection ([id number] A1-A7; 12/08/2024): -Invasive poorly differentiated adenocarcinoma (see comment). 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 Lymph node, level 7, resection ([id number] B1; 12/08/2024): -Metastatic carcinoma in lymph node tissue. Lymph node, level 5, resection ([id number] C1; 12/08/2024): -Rare atypical cells. 12/19/2024 4:03 PM EDT [facility] at 1603 EDT Diagnosis Comment This is a case of a 59-year-old female patient, smoker, with history of partial thyroidectomy, ulcerative colitis and diabetes, who underwent a wedge resection of a left upper lobe mass along with mediastinal lymph node dissection. I attempted to contact Dr. Maite Alexis to clarify the reason for the consultation request; however, I was unable to reach her. 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 The tumor involves the pleura. Lymphovascular invasion is present. An intrapulmonary lymph node involved by tumor is also identified (A5). The background lung shows emphysematous changes and respiratory bronchiolitis. Keratin stain and recut may be helpful for C1. If you would like to discuss further to the case, please do not hesitate to contact us, [phone]. 12/19/2024 4:03 PM EDT [facility] Clinical History CONSULT REQUESTED 12/19/2024 4:03 PM EDT [facility] Performing Lab Diagnostic interpretation performed at: [facility], [address] [place] [address], [place] [address] CLIA# [id number] Tailor Apprentice: Jonah Guzman MD 12/19/2024 4:03 PM EDT [facility] Disclaimer Laboratory Developed Test (LDT) Disclaimer: Performance characteristics of immunohistochemica l, immunofluorescent, and chromogenic in-situ hybridization tests have been determined by the performing laboratory within [facility]'s Tom Farris Pathology and Laboratory Medicine Department ([facility], [facility] [place], [facility], [facility], [facility], [facility], or [facility]) in a manner consistent with CLIA requirements. One or more of these tests may not have been cleared or approved by the FDA. [facility] is regulated under CLIA as qualified to perform high-complexity testing. These tests are used for clinical purposes. These should not be regarded as investigational or for research. Positive and negative controls stain appropriately. 12/19/2024 4:03 PM EDT [facility] Blocks or Slides PARAFFIN EMBEDDED TISSUE BLOCK SPECIMEN / Unknown 12/14/2024 4:52 PM EDT 12/14/2024 4:51 PM EDT us Maite Alexis MD SURGICAL PATHOLOGY Final Result [facility] [address] [facility] [place] [address], [place] documented in this encounter Visit Diagnoses Diagnosis Person encountering health services to consult on behalf of another person Other person consulting on behalf of another person documented in this encounter
--- OUTSIDE RECORDS SUMMARY | 2025-03-27 13:09 | XMS_ITS | Encounter Summary ---
Author Organization [facility] Address [address] [place] [address] Phone Care Team Providers Care Teacher Dancing Name Role Phone Panchito Ford DO Primary Care Provider + Encounter Details Date Type Department Care Team (Late Contact Info) Description 11/16/2024 Scanned Document [facility] [address] [place] [id number] Scanning, Generic Provider Social History Tobacco Use Types Packs/Day Years Used Date Smoking Tobacco: Every Day Cigarettes Smokeless Tobacco: Never Alcohol Use Standard Drinks/Week Comments Yes 14 (1 standard drink = 0.6 oz pu re alcohol) Comments Unknown Sex and Gender Information Value Date Recorded Sex Assigned at Not on file Legal Sex Female 12:21 PM EST Gender Identity Not on file Sexual Orientation Not on file COVID-19 Exposure Response Date Recorded In the last 10 days, have yo u been in contact with someone who was confirmed or suspected to have Coronavirus/COVID-19? No / Unsure 10/26/2024 9:38 AM EDT documented as of this encounter Plan of Treatment Upcoming Encounters Date Type Department Care Team (Late st Contact Info) Description 06/07/2025 3:15 PM EST Office Visit [facility] [address] [facility] [address] [place] [address] Ancelmo Ortiz MD [address] [facility] [address] [place], [place] [phone] documented as of this encounter Procedures Procedure Name Priority Date/Time Associated Diagnosis Comments ECHOCARDIOGRAM 11/16/2024 documented in this encounter Results * Echocardiogram (11/16/2024) Narrative 11/16/2024 Ordered by an unspecified provider. us Generic Provider Scanning CV ECHO PROCEDURES Fin al Result documented in this encounter Visit Diagnoses Not on filedocumented in this encounter Care Teams Teacher Dancing Relationship Specialty Start Date End Date Panchito Ford DO [address] [place], [place] [phone] PCP - General Family Medicine 10/26/24 documented as of this encounter
--- OUTSIDE RECORDS SUMMARY | 2025-03-27 13:09 | XMS_ITS | Encounter Summary ---
Author Organization [facility] [facility] Address [id number] [address] 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 Never True 02/14/2024 Within the past 12 months th e food we bought just didn't last and we didn't have money to get more. 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
--- OUTSIDE RECORDS SUMMARY | 2025-03-27 13:09 | XMS_ITS ---
Author Organization [facility] Address [address] [place] [address] Care Team Providers Care Maori Liaison Adviser Name Role Phone Panchito Ford MD Primary Care Provider [phone] Mac Turner MD Unavailable [phone] Joseluis Malone DO Unavailable [phone] Current Treatment and Therapy Plans No current plan information found. Past Treatment and Therapy Plans No past plan information found. Lifetime Dose Tracking * Chemical Lifetime Dose Automatic Entry Manual Entr y Radiation 10 mSv 10 mSv 0 mSv Resolved Problems Problem Noted Date Diagnosed Date Resolved Date Abnormal CBC 10/29/2024 10/29/2024 Abnormal kidney function 10/29/2024 B12 deficiency 10/29/2024 10/29/2024 Back pain 10/29/2024 10/29/2024 Chronic hoarseness 10/29/2024 Dehydration 10/29/2024 10/29/2024 Former smoker 10/29/2024 10/29/2024 History of colon polyps 10/29/2024 033 History of recent fall 10/29/202410/29 Heart disease 10/29/2024 10/29/2024 Loose stools 10/29/2024 10/29/2024 Neuropathy due to type 2 diabetes mellitus 10/29/2024 10/29/2024 Overview (10/29/2024): Noted in [facility] documentation 08/12/2021 page 2, added per outpatient CDI policy. Osteoarthritis 10/29/2024 10/29/2024 Overview (10/29/2024): Knees Post-menopause bleeding 10/29/202410/02 S/P laminectomy with spinal fusion 10/29/2024 10/29/2024 Abnormal echocardiogram 10/26/202410/02 Abnormal EKG 10/26/2024 10/29/2024 Acute cataract 10/26/2024 10/29/2024 Anxiety 10/26/2024 10/29/2024 BMI 23.0-23.9, adult 10/26/2024 025 Cardiomyopathy, ischemic 10/26/2024 Claudication 10/26/2024 10/29/2024 Depression 10/26/2024 10/29/2024 Dyspnea on exertion 10/26/2024 10/30/19 Hx of myocardial infarction 10/26/2024 10/29/2024 Malignant neoplasm of left lung 10/26/2024 10/29/2024 Mitral valve regurgitation 10/26/2024 0 10/29/2024 Pre-operative clearance 10/26/202410/02 Snoring 10/26/2024 10/29/2024 Tobacco abuse 10/26/2024 10/29/2024 Atherosclerosis of coronary artery 03/28/2024 10/29/2024 Emphysema/COPD 03/28/2024 10/29/2024 Hyperlipidemia 03/28/2024 10/29/2024 correction current use of insulin 03/28/2024 10/29/2024 Overview (10/29/2024): Added per outpatient CDI policy. Mild major depression 03/28/20242024 Nicotine dependence 03/28/2024 10/30/19 25 Overview (10/29/2024): Added secondary to documentation in Social History. Tremor 03/28/2024 10/29/2024 Type 1 diabetes mellitus 03/28/2024 Overview (10/29/2024): Diabetes mellitus Ulcerative colitis, chronic 03/28/2024 10/29/2024 Vitamin D deficiency 03/28/2024 025 Aortic stenosis 02/10/2024 10/29/2024 Overview (10/29/2024): Last Assessment & Plan: We will do shockwave intravascular lithotripsy and stenting Cigarette smoker motivated to quit 01/13/2024 10/29/2024 Overview (10/29/2024): Last Assessment & Plan: Counseled on smoking cessation at length, For at least 3 minutes. She is willing to quit. Critical limb ischemia of le ft lower extremity with gangrene 01/13/2024 10/29/2024 Chronic pain syndrome 11/10/20162024 Dysphagia 11/10/2016 10/29/2024 Imbalance 11/10/2016 10/29/2024 Cyst of thyroid 08/02/1999 10/29/2024 Overview (10/29/2024): Thyroid cyst
--- OUTSIDE RECORDS SUMMARY | 2025-03-27 13:09 | XMS_ITS | Clinical Summary ---
Author Organization [facility] 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 Name Role Phone Panchito Ford Primary Care Provider [phone] Allergies Active Allergy Reactions Criticality Noted Date Comments Atorvastatin Nausea Only,Other (S ee Comments),Rash Low 11/10/2016 Severe muscle aches Penicillins Other (See Comments),Rash,Shortness Of Breath,Swelling High 05/31/2002 respiratory arrest ARREST respiratory arrest BABY Pravastatin Myalgia High 02/10/2024 Muscle pains and blurred vision reports seeing stars Medications aspirin 81 MG EC tablet Take 1 tablet by mouth 12/06/19 24 Active vitamin D (ERGOCALCIFEROL ) 1.25 MG (44649 UT) CAPS capsule Take 1 capsule by mouth once a week 12 capsule 4 05/17/20 24 Active clopidogrel (PLAVIX) 75 MG tablet Take 1 tablet by mouth daily 90 tablet 3 05/17/20 24 Active buPROPion (WELLBUTRIN XL) 150 MG extended release tablet Take 1 tablet by mouth in the morning and at bedtime 180 tablet 3 05/17/20 24 Active estradiol (ESTRACE) 2 MG tablet Take 1 tablet by mouth nightly 90 tablet 3 05/17/20 24 Active budesonide (ENTOCORT EC) 3 MG delayed release capsule Take 3 capsules by mouth every morning 270 capsule 3 05/17/20 24 Active Cholecalciferol 1.25 MG (72151 UT) TABS Take 50,000 Units by mouth once a week 12 tablet 4 05/17/20 24 Active lamoTRIgine (LAMICTAL) 150 MG tabletIndicatio ns:Mild major depression TAKE 1 TABLET BY MOUTH EVERY DAY 90 tablet 1 11/09/19 25 Active hydrOXYzine HCl (ATARAX) 25 MG tablet TAKE 1 TABLET BY MOUTH EVERY 6 HOURS NEEDED FOR ANXIETY 360 tablet 1 11/09/19 25 Active rosuvastatin (CRESTOR) 5 MG tablet Take 1 tablet by mouth daily 90 tablet 3 11/10/19 25 Active Blood Glucose Monitoring Suppl (ONE TOUCH ULTRA 2) w/Device KIT USE DIRECTED 1 kit 12/14/19 25 Active levothyroxine (SYNTHROID) 150 MCG tablet Take 0.5 tablets by mouth Daily Skip dose twice weekly. 90 tablet 3 12/27/19 25 Active propranolol (INDERAL LA) 80 MG extended release capsuleIndicati ons:Tremor Take 1 capsule by mouth daily 90 capsule 1 12/27/19 25 Active amphetamine-dex troamphetamine (ADDERALL, 10MG,) 10 MG tabletIndicatio ns:Moderate recurrent major depression (HCC) Take 1 tablet by mouth 2 times daily for 30 days. Max Daily Amount: 20 mg 60 tablet 01/11/20 25 Active gabapentin (NEURONTIN) 300 MG capsuleIndicati ons:Tremor Take 1 capsule by mouth in the morning and 1 capsule in the evening. Do all this for 30 days. Intended supply: 30 days. 60 capsule 02/07/20 25 Active NOVOLOG 100 UNIT/ML injection vialIndications :Type 1 diabetes mellitus without complication (HCC) USE DIRECTED WITH INSULIN PUMP. MAX DAILY DOSE 90 UNITS. 10 mL 3 03/02/20 25 Active blood glucose test strips (ONETOUCH ULTRA) stripIndication s:Type 1 diabetes mellitus without complication (HCC) Use as directed. Testing three times daily. 300 strip 5 03/21/20 25 Active NOVOLOG 100 UNIT/ML injection vialIndications :Type 1 diabetes mellitus without complication (HCC) Use as directed with insulin pump. Max daily dose 90 units. 10 mL 3 11/16/19 25 025 Discontinued blood glucose test strips (ONETOUCH ULTRA) strip TEST ONCE DAILY AND NEEDED FOR SYMPTOMS OF IRREGULAR BLOOD GLUCOSE. 100 strip 3 02/06/20 25 025 Discontinued(RE ORDER) Active Problems Problem Noted Date Diagnosed Date Type 1 diabetes mellitus without complication Overview (03/28/2024): Diabetes mellitus Tremor 03/28/2024 Ulcerative colitis, chronic 03/28/2024 Vitamin D deficiency 03/28/2024 Nicotine dependence 03/28/2024 Overview (03/28/2024): Added secondary to documentation in Social History. 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 Hypothyroid 03/28/2024 HTN (hypertension) 03/28/2024 Hyperlipidemia 03/28/2024 Emphysema/COPD 03/28/2024 Atherosclerosis of coronary artery 03/28/2024 Aortic stenosis 02/10/2024 Overview (03/28/2024): Last Assessment & Plan: We will do shockwave intravascular lithotripsy and stenting Cigarette smoker motivated to quit 01/13/2024 Overview (03/28/2024): Last Assessment & Plan: Counseled on smoking cessation at length, For at least 3 minutes. She is willing to quit. Encounters Date Type Department Care Team Description 03/21/2025 Refill [facility] [address] [place] [id number] Panchito Ford, DO Medication Refill 03/02/[address] [address] Panchito Ford, DO Medication Refill 02/27/[address] [address] Judy Sharif MA 02/27/2025 Orders Only [address] [address] Provider, MD Sushant 02/19/2025 3:00 PM EDT Office Visit [facility] Thoracic Surgery [address] [place] [address] [address] [place] [address] Mac Turner MD Malignant neoplasm of upper lobe of left lung (HCC) (Primary Dx) 02/19/2025 Orders Only [facility] Thoracic Surgery [address] [place] [id number] Mac Turner MD Lung mass (Primary Dx) 02/06/[address] [address] Panchito Ford, RX request 02/03/[address] [address] Demi Briseno, MARINO - SOFTWARE CLERK Medication Refill 01/26/[address] [address] Judy Sharif MA 01/12/[address] [address] Panchito Ford DO 01/10/2025 2:00 PM EDT Office Visit [address] [address] Panchito Ford DO Moderate recurrent major depression (HCC) (Primary Dx); Type 1 diabetes mellitus without complication (HCC); Tremor; High risk medication use; Encounter for colorectal cancer screening 12/28/[address] [address] Panchito Ford DO update 12/28/[address] [address] Panchito Ford DO 12/26/[address] [address] Panchito Ford, Depression from Last 3 Months Family History Medical History Relation Name Comments No Known Problems Brother No Known Problems Father No Known Problems Maternal Grandfather No Known Problems Maternal Grandmother No Known Problems Mother No Known Problems Paternal Grandfather No Known Problems Paternal Grandmother No Known Problems Sister Relation Name Status Comments Brother Father Maternal Grandfather Maternal Grandmother Mother Paternal Grandfather Paternal Grandmother Sister Social History Tobacco Use Types Packs/Day Years Used Date Smoking Tobacco: Every Day Cigarettes 1 31.6 Started: 1993 Smokeless Tobacco: Never Tobacco Cessation:Ready to Q uit: Not Asked; Counseling Given: Not Answered Alcohol Use Standard Drinks/Week Comments Yes 0 (1 standard drink = 0.6 oz pur e alcohol) [facility] Utilities Answer Date Recorded In the past 12 months has th e Tripping, gas, oil, or water company threatened to shut off services in your home? No 11/03/2024 AUDIT-C Answer Date Recorded Q1: How often do you have a drink containing alcohol? 4 or more times a week 11/03/2024 Q2: How many drinks containi ng alcohol do you have on a typical day when you are drinking? 1 or 2 Q3: How often do you have si x or more drinks on one occasion? Never 11/03/2024 Overall Financial Resource Strain (CARDIA) Answe r Date Recorded How hard is it for you to pa y for the very basics like food, housing, medical care, and heating? Not hard at all 03/28/2024 PHQ-2 Answer Date Recorded PHQ-9 Total Score 5 11/03/2024 Exercise Vital Sign Answer Date Recorde d On average, how many days pe r week do you engage in moderate to strenuous exercise (like a brisk walk)? 0 days 11/03/2024 On average, how many minutes do you engage in exercise at this level? 0 min 11/03/2024 Hunger Vital Sign Answer Date Recorded Within the past 12 months, y ou worried that your food would run out before you got the money to buy more. Never true 11/04/19 25 Within the past 12 months, t he food you bought just didn't last and you didn't have money to get more. Never true 11/03/2024 PRAPARE - Transportation Answer Date Re corded In the past 12 months, has l ack of transportation kept you from medical appointments or from getting medications? No 10/2024 In the past 12 months, has l ack of transportation kept you from meetings, work, or from getting things needed for daily living? No 11/03/2024 Housing Stability Vital Sign Answer Stu e Recorded In the last 12 months, was t here a time when you were not able to pay the mortgage or rent on time? No 11/03/2024 In the past 12 months, how m any times have you moved where you were living? 0 11/03/2024 At any time in the past 12 m [facility], were you homeless or living in a long-term (including now)? No 11/03/2024 Food Insecurity Answer Date Recorded Within the past 12 months, y ou worried that your food would run out before you got the money to buy more. 1 11/03/2024 Within the past 12 months, t he food you bought just didn't last and you didn't have money to get more. 1 11/03/2024 Comments No Sex and Gender Information Value Date Recorded Sex Assigned at Not on file Legal Sex Female 4:43 PM EST Gender Identity Not on file Sexual Orientation Not on file Last Filed Vital Signs Vital Sign Reading Time Taken Comments Blood Pressure 138/84 01/10/2025 1:56 PM EDT Pulse 74 02/19/2025 2:54 PM EDT Temperature 36.6 C (97.8 F) 02/19/2025 2:54 PM EDT Respiratory Rate 22 10/09/2024 12:55 PM EDT Oxygen Saturation 98% 02/19/2025 2:54 PM EDT Inhaled Oxygen Concentration - - Weight 58.1 kg (128 lb) 02/19/2025 2:54 PM EDT Height 156.2 cm (5' 1.5 ) 02/19/2025 2:54 PM EDT Body Mass Index 23.79 02/19/2025 2:54 PM EDT Plan of Treatment Upcoming Encounters Date Type Department Care Team (Late st Contact Info) Description 04/11/2025 4:00 PM EDT Office Visit [facility] [address] [place] [address] Panchito Ford DO [address] [place] [address] 3 mom f/u Health Maintenance Due Date Last Done Comments HIV screen 01/09/1980 Diabetic retinal exam 1983 Hepatitis C screen 1983 DTaP/Tdap/Td vaccine (1 - Tdap) 01/09/1984 Pneumococcal 50+ years Vaccine (1 of 2 - PCV) 01/09/1984 Pap smear 1986 FIT/FOBT: Average risk 2010 Fecal-DNA (Cologuard): Average risk 2010 Sigmoidoscopy/CT colonography 2010 Shingles vaccine (1 of 2) 2015 Colonoscopy 08/24/2023 08/24/2013 Colorectal Cancer Screen 08/24/2023 COVID-19 Vaccine (1 - season) 2024 Respiratory Syncytial Virus (RSV) or age 60 yrs+ (1 - Risk 60-74 years 1-dose series) 2025 Flu vaccine (#1) 03/02/2025 Diabetic foot exam 03/28/2025 03/28/2024, 0 03/28/2024, 03/28/2024 Breast cancer screen 07/18/2025 07/18/2024, 01/11/20 15 Lung Cancer Screening &/or Counseling 10/09/2025 10/09/2024, 08/16/2024, 07/18/2024, Additional history exists Cervical cancer screen 10/23/2025 HPV (without or with Pap) 10/23/2025 10/23/2020 GFR test (Diabetes, CKD 3-4, OR last GFR 15-59) 10/30/2025 10/30/2024, 08/20/2011 Lipids 10/30/2025 10/30/2024 Depression Monitoring 11/03/2025 11/03/2024, 025 A1C test (Diabetic or Prediabetic) 01/10/2026 01/10/2025, 10/30/2024, 06/27/2024, Additional history exists Diabetic Alb to Cr ratio (uACR) test 01/10/2026 01/10/2025 Annual Wellness Visit (Medicare Advantage) Completed 11/03/2024, 04/04/2024 Depression Screen Discontinued 11/03/2024, 11/03/2024 Hepatitis A vaccine Aged Out No longe r eligible based on patient's age to complete this topic Hepatitis B vaccine Aged Out No longe r eligible based on patient's age to complete this topic Hib vaccine Aged Out No longer eligi ble based on patient's age to complete this topic Meningococcal (ACWY) vaccine Aged Out No longer eligible based on patient's age to complete this topic Meningococcal B vaccine Aged Out No l onger eligible based on patient's age to complete this topic Polio vaccine Aged Out No longer elig ible based on patient's age to complete this topic Procedures Procedure Name Priority Date/Time Associated Diagnosis Comments FECAL DNA COLORECTAL CANCER SCREENING (COLOGUARD)- Unsuccessful Attempt Routine 02/20/2025 6:45 AM EDT Encounter for colorectal cancer screening POCT GLUCOSE Routine 01/10/2025 4:07 PM EDT Type 1 diabetes mellitus without complication (HCC) ALBUMIN/CREATININE RATIO, URINE Routine 01/10/2025 3:27 PM EDT Type 1 diabetes mellitus without complication (HCC) PAIN MANAGEMENT DRUG SCREEN Routine 01/10/2025 3:27 PM EDT High risk medication use POCT GLYCOSYLATED HEMOGLOBIN (HGB A1C) Routine 01/10/2025 3:26 PM EDT Type 1 diabetes mellitus without complication (HCC) LIPID PANEL Routine 10/30/2024 1:55 PM EDT COMPREHENSIVE METABOLIC PANEL Routine 10/30/2024 CT NEEDLE BIOPSY LUNG PERCUTANEOUS W IMAGING GUIDANCE Routine 10/09/2024 11:06 AM EDT Mass of left lung HM MAMMOGRAPHY Routine 07/18/2024 10:25 AM EST HM HPV Routine 10/23/2020 12:51 PM EDT HM COLONOSCOPY Routine 08/24/2013 12:50 PM EST from Last 3 Months or Most Recently Relevant to Health Maintenance Results * Fecal DNA Colorectal cancer screening (Cologuard) (02/20/2025 6:45 AM EDT) - Unsuccessful Attempt FIT-DNA (Cologuard) Sample Could Not Be Processed 2 N/A 02/20/2025 6:45 AM EDT [facility] (CLIA #:[id number]) Comment: The Cologuard (TM) test was assigned to this specimen. Addition of stabilization buffer to the specimen could not be verified. The patient will be contacted to initiate a new sample collection. Feces (substance) STOOL SPECIMEN / Unknown 02/18/2025 10:10 PM EDT Panchito Fodr DO MICROBIOLOGY - GENERAL ORDERA BLES Final Result [facility] [facility] (CLIA #:[id number]) [address] [place] [address], [facility] [phone] * POCT Glucose (01/10/2025 4:07 PM EDT) POC Glucose 186 QC OK? BLOOD SPECIMEN / Unknown 01/10/2025 4:07 PM EDT Panchito Ford DO POINT OF CARE TEST ORDERABLES Final Result * Pain Management Drug Screen (01/10/2025 3:27 PM EDT) Codeine Not Detected 01/14/2025 2:16 PM EDT [facility] Comment: INTERPRETIVE INFORMATION: Codeine, U Positive Cutoff: 40 ng/mL Methodology: Mass Spectrometry Morphine Not Detected 01/14/2025 2:16 PM EDT [facility] Comment: INTERPRETIVE INFORMATION:Morphine, U Positive Cutoff: 20 ng/mL Methodology: Mass Spectrometry 6 Acetylmorphine Not Detected 2024 2:16 PM EDT [facility] Comment: INTERPRETIVE INFORMATION:6-acetylmorphine, U Positive Cutoff: 20 ng/mL Methodology: Mass Spectrometry Oxycodone Not Detected 01/14/2025 2:16 PM EDT [facility] Comment: INTERPRETIVE INFORMATION:Oxycodone, U Positive Cutoff: 40 ng/mL Methodology: Mass Spectrometry Noroxycodone Not Detected 01/14/2025 2:16 PM EDT [facility] Comment: INTERPRETIVE INFORMATION:Noroxycodone, U Positive Cutoff: 100 ng/mL Methodology: Mass Spectrometry Oxymorphone Not Detected 01/14/2025 2:16 PM EDT [facility] Comment: INTERPRETIVE INFORMATION:Oxymorphone, U Positive Cutoff: 40 ng/mL Methodology: Mass Spectrometry Noroxymorphone, Urine Not Detected 01/14/2025 2:16 PM EDT [facility] Comment: INTERPRETIVE INFORMATION:Noroxymorphone, U Positive Cutoff: 100 ng/mL Methodology: Mass Spectrometry Hydrocodone Not Detected 01/14/2025 2:16 PM EDT [facility] Comment: INTERPRETIVE INFORMATION:Hydrocodone, U Positive Cutoff: 40 ng/mL Methodology: Mass Spectrometry Norhydrocodone, Urine Not Detected 01/14/2025 2:16 PM EDT [facility] Comment: INTERPRETIVE INFORMATION:Norhydrocodone, U Positive Cutoff: 100 ng/mL Methodology: Mass Spectrometry Hydromorphone Not Detected 2:16 PM EDT [facility] Comment: INTERPRETIVE INFORMATION:Hydromorphone, U Positive Cutoff: 20 ng/mL Methodology: Mass Spectrometry Naloxone Not Detected 01/14/2025 2:16 PM EDT [facility] Comment: INTERPRETIVE INFORMATION:Naloxone, U Positive Cutoff: 100 ng/mL Methodology: Mass Spectrometry Buprenorphine Not Detected 2:16 PM EDT [facility] Comment: INTERPRETIVE INFORMATION:Buprenorphine, U Positive Cutoff: 5 ng/mL Methodology: Mass Spectrometry Norbuprenorphine Not Detected 2024 2:16 PM EDT [facility] Comment: INTERPRETIVE INFORMATION:Norbuprenorphine, U Positive Cutoff: 20 ng/mL Methodology: Mass Spectrometry Fentanyl Not Detected 01/14/2025 2:16 PM EDT [facility] Comment: INTERPRETIVE INFORMATION:Fentanyl, U Positive Cutoff: 2 ng/mL Methodology: Mass Spectrometry Norfentanyl Not Detected 01/14/2025 2:16 PM EDT [facility] Comment: INTERPRETIVE INFORMATION:Norfentanyl, U Positive Cutoff: 2 ng/mL Methodology: Mass Spectrometry Meperidine Not Detected 01/14/2025 2:16 PM EDT [facility] Comment: INTERPRETIVE INFORMATION:Meperidine metabolite, U Positive Cutoff: 50 ng/mL Methodology: Mass Spectrometry Tapentadol, Urine Not Detected 01/14 2:16 PM EDT [facility] Comment: INTERPRETIVE INFORMATION:Tapentadol, U Positive Cutoff: 100 ng/mL Methodology: Mass Spectrometry Qlivoxbwpo-Q-Skukmif , Urine Not Detected 01/14/2025 2:16 PM EDT [facility] Comment: INTERPRETIVE INFORMATION:Iwwillmuns-w-Rbin, U Positive Cutoff: 200 ng/mL Methodology: Mass Spectrometry Methadone Negative 01/14/2025 2:16 PM EDT [facility] Comment: Presumptive negative by immunoassay. Testing by mass spectrometry is available on request. INTERPRETIVE INFORMATION: Methadone Screen, U Positive Cutoff: 150 ng/mL Methodology: Immunoassay Tramadol PresumptivePOS 01/14/2025 2:16 PM EDT [facility] Comment: Presumptive positive by immunoassay. Testing by mass spectrometry is available on request. INTERPRETIVE INFORMATION:Tramadol Screen, U Positive Cutoff: 100 ng/mL Methodology: Immunoassay Amphetamine Not Detected 01/14/2025 2:16 PM EDT [facility] Comment: INTERPRETIVE INFORMATION:Amphetamine, U Positive Cutoff: 50 ng/mL Methodology: Mass Spectrometry Methamphetamine Not Detected 025 2:16 PM EDT [facility] Comment: INTERPRETIVE INFORMATION:Methamphetamine, U Positive Cutoff: 200 ng/mL Methodology: Mass Spectrometry MDMA, Urine Not Detected 01/14/2025 2:16 PM EDT [facility] Comment: INTERPRETIVE INFORMATION:MDMA, U Positive Cutoff: 200 ng/mL Methodology: Mass Spectrometry MDA Not Detected 01/14/2025 2:16 PM EDT [facility] Comment: INTERPRETIVE INFORMATION:MDA, U Positive Cutoff: 200 ng/mL Methodology: Mass Spectrometry MDEA Not Detected 01/14/2025 2:16 PM EDT [facility] Comment: INTERPRETIVE INFORMATION:MDEA, U Positive Cutoff: 200 ng/mL Methodology: Mass Spectrometry Methylphenidate Not Detected 025 2:16 PM EDT [facility] Comment: INTERPRETIVE INFORMATION:Methylphenidate, U Positive Cutoff: 100 ng/mL Methodology: Mass Spectrometry Phentermine Not Detected 01/14/2025 2:16 PM EDT [facility] Comment: INTERPRETIVE INFORMATION:Phentermine, U Positive Cutoff: 100 ng/mL Methodology: Mass Spectrometry Benzoylecgonine Negative 2:16 PM EDT [facility] Comment: Presumptive negative by immunoassay. Testing by mass spectrometry is available on request. INTERPRETIVE INFORMATION:Cocaine Screen, U Positive Cutoff: 150 ng/mL Methodology: Immunoassay Alprazolam Present 01/14/2025 2:16 PM EDT [facility] Comment: INTERPRETIVE INFORMATION:Alprazolam, U Positive Cutoff: 40 ng/mL Methodology: Mass Spectrometry Rvaeh-PC-gtecbiwipa Present 01/14 2:16 PM EDT [facility] Comment: INTERPRETIVE INFORMATION:Rlowf-CL-Bujdoashly, U Positive Cutoff: 20 ng/mL Methodology: Mass Spectrometry Clonazepam Not Detected 01/14/2025 2:16 PM EDT [facility] Comment: INTERPRETIVE INFORMATION:Clonazepam, U Positive Cutoff: 20 ng/mL Methodology: Mass Spectrometry 7-aminoclonazepam Not Detected 01/14 2:16 PM EDT [facility] Comment: INTERPRETIVE INFORMATION:7-Aminoclonazepam, U Positive Cutoff: 40 ng/mL Methodology: Mass Spectrometry Diazepam Not Detected 01/14/2025 2:16 PM EDT [facility] Comment: INTERPRETIVE INFORMATION:Diazepam, U Positive Cutoff: 50 ng/mL Methodology: Mass Spectrometry Nordiazepam Not Detected 01/14/2025 2:16 PM EDT [facility] Comment: INTERPRETIVE INFORMATION:Nordiazepam, U Positive Cutoff: 50 ng/mL Methodology: Mass Spectrometry OXAZEPAM Not Detected 01/14/2025 2:16 PM EDT [facility] Comment: INTERPRETIVE INFORMATION:Oxazepam, U Positive Cutoff: 50 ng/mL Methodology: Mass Spectrometry TEMAZEPAM Not Detected 01/14/2025 2:16 PM EDT [facility] Comment: INTERPRETIVE INFORMATION:Temazepam, U Positive Cutoff: 50 ng/mL Methodology: Mass Spectrometry Lorazepam Not Detected 01/14/2025 2:16 PM EDT [facility] Comment: INTERPRETIVE INFORMATION:Lorazepam, U Positive Cutoff: 60 ng/mL Methodology: Mass Spectrometry Midazolam Not Detected 01/14/2025 2:16 PM EDT [facility] Comment: INTERPRETIVE INFORMATION:Midazolam, U Positive Cutoff: 20 ng/mL Methodology: Mass Spectrometry Zolpidem Not Detected 01/14/2025 2:16 PM EDT [facility] Comment: INTERPRETIVE INFORMATION:Zolpidem, U Positive Cutoff: 20 ng/mL Methodology: Mass Spectrometry Gabapentin Not Detected 01/14/2025 2:16 PM EDT [facility] Comment: INTERPRETIVE INFORMATION:Gabapentin, U Positive Cutoff: 3,000 ng/mL Methodology: Mass Spectrometry Pregabalin Not Detected 01/14/2025 2:16 PM EDT [facility] Comment: INTERPRETIVE INFORMATION:Pregabalin, U Positive Cutoff: 3,000 ng/mL Methodology: Mass Spectrometry Pmplw-JZ-Nrbhbnnkn, Urine Not Detected 01/14/2025 2:16 PM EDT [facility] Comment: INTERPRETIVE INFORMATION:Skllb-LI-Nbghlqjci, U Positive Cutoff: 20 ng/mL Methodology: Mass Spectrometry Barbiturates Negative 01/14/2025 2:16 PM EDT [facility] Comment: Presumptive negative by immunoassay. Testing by mass spectrometry is available on request. INTERPRETIVE INFORMATION:Barbiturates Screen, U Positive Cutoff: 200 ng/mL Methodology: Immunoassay Ethyl Glucuronide PresumptivePOS 2:16 PM EDT [facility] Comment: Presumptive positive by immunoassay. Testing by mass spectrometry is available on request. INTERPRETIVE INFORMATION:Ethyl Glucuronide Screen, U Positive Cutoff: 500 ng/mL Methodology: Immunoassay Marijuana Metabolite Negative 12/31 2:16 PM EDT [facility] Comment: Presumptive negative by immunoassay. Testing by mass spectrometry is available on request. INTERPRETIVE INFORMATION: THC (Cannabinoids) Screen, U Positive Cutoff: 50 ng/mL Methodology: Immunoassay PCP Negative 01/14/2025 2:16 PM EDT [facility] Comment: Presumptive negative by immunoassay. Testing by mass spectrometry is available on request. INTERPRETIVE INFORMATION:Phencyclidine Screen, U Positive Cutoff: 25 ng/mL Methodology: Immunoassay Carisoprodol Negative 01/14/2025 2:16 PM EDT [facility] Comment: Presumptive negative by immunoassay. Testing by mass spectrometry is available on request. INTERPRETIVE INFORMATION: Carisoprodol Screen, U Positive Cutoff: 100 ng/mL Methodology: Immunoassay The carisoprodol immunoassay has cross-reactivity to carisoprodol and meprobamate. Pain Management Drug Panel See Below 01/14/2025 2:16 PM EDT [facility] Comment: Methodology: Qualitative Enzyme Immunoassay and Qualitative Liquid Chromatography-Tandem Mass Spectrometry, Quantitative Spectrophotometry The absence of expected drug(s) and/or drug metabolite(s) may indicate non-compliance, inappropriate timing of specimen collection relative to drug administration, poor drug absorption, diluted/adulterated urine, or limitations of testing. The concentration must be greater than or equal to the cutoff to be reported as present. If specific drug concentrations are required, contact the laboratory within two weeks of specimen collection to request quantification by a second analytical technique. Interpretive questions should be directed to the laboratory. Results based on immunoassay detection that do not match clinical expectations should be interpreted with caution. Confirmatory testing by mass spectrometry for immunoassay-based results is available, if ordered within two weeks of specimen collection. Additional charges apply. For medical purposes only; not valid for forensic use. This test was developed and its performance characteristics determined by [employer]. It has not been cleared or approved by the [place] Food and Drug Administration. This test was performed in a CLIA certified laboratory and is intended for clinical purposes. EER Pain Mgt Drug Panel, High Res/Emit U See Note 01/14/2025 2:16 PM EDT [facility] Comment: Authorized individuals can access the [facility] Enhanced Report with an [facility] Connect account using the following link. Your local lab can assist you in obtaining the patient report if you don't have a Connect account. [email or web address] Performed By: [employer] [address] [place] [address] Blending Coordinator: Tano Ward MD, PhD CLIA Number: [id number] Creatinine, Ur 100.6 20.0 - 400.0 mg/dL 01/14/2025 2:16 PM EDT [facility] Urine 01/10/2025 3:27 PM EDT 01/10/2025 7:16 PM EDT Panchito Ford DO URINE ORDERABLES Final Result [facility] [address] [place] [place] [address], [facility] [phone] [facility] [address] [place], [place] [id number] [place] [address] * (ABNORMAL) Albumin/Creatinine Ratio, Urine (01/10/2025 3:27 PM EDT) Albumin Urine 38.30(H) Not Established mg/dL 01/10/2025 7:26 PM EDT [facility] Creatinine, Ur 98.6 Not Established mg/dL 01/10/2025 7:26 PM EDT [facility] Albumin/Creat inine Ratio 388.4(H) 0.0 - 30.0 mg/G 01/10/2025 7:26 PM EDT [facility] Urine (Urine) 01/10/2025 3:2 7 PM EDT 01/10/2025 7:16 PM EDT Panchito Ford DO URINE ORDERABLES Final Result [facility] [address] [place] [id number], [facility] [phone] * POCT glycosylated hemoglobin (Hb A1C) (01/10/2025 3:26 PM EDT) Hemoglobin A1C 5.7 % BLOOD SPECIMEN / Unknown 01/10/2025 3:26 PM EDT Panchito Ford DO POINT OF CARE TEST ORDERABLES Final Result * (ABNORMAL) Lipid Panel (10/30/2024 1:55 PM EDT) Cholesterol, Total 193 mg/dL HDL 119(A) 35 - 70 mg/dL LDL Cholesterol 52 Triglycerides 113 mg/dL Chol/HDL Ratio 1.6 VLDL 22.6 mg/dL Cholesterol non HDL Blood BLOOD SPECIMEN / Unknown Impressions Kiarra Louis MA - 10/30/2024 1:55 PM EDT Lipid Panel Date Collected Date Received Status Reported/Status Changed Priority 10/30/2024 3:45 PM 10/30/2024 3:46 PM Final 10/30/2024 4:43 PM NA Facility: [facility] [place] Specimen Source: NA Admitting Provider: Ordered Date: 10/30/2024 3:45 PM Body Site: NA Attending Provider: Ordering Provider: Patient Class: Ambulatory Test Result Reference Out Of Range Units Corrected/Cancelled Triglycerides 113 <=150 mg/dL Cholesterol 193 <=200 mg/dL HDL Cholesterol 119 40-60 High mg/dL Result Comments: > or =60 mg/dl - LOW CARDIOVASCULAR RISK <40 mg/dl - HIGH CARDIOVASCULAR RISK LDL Cholesterol Calculated 52.0 mg/dL Result Comments: <100 mg/dl OPTIMAL 100-129 mg/dl NEAR OR ABOVE OPTIMAL 130-159 mg/dl BORDERLINE HIGH 160-189 mg/dl HIGH >190 mg/dl VERY HIGH VLDL CHOLESTEROL 22.6 mg/dL Chol HDL Ratio 1.6 Result Comments: 3.3 - 4.4 LOW RISK 4.4 - 7.1 AVERAGE RISK 7.1 - 11.0 MODERATE RISK >11.0 HIGH RISK Performed By: [facility] Historical Provider CHEMISTRY ORDERABLES Edit ed Result - Final * (ABNORMAL) Comprehensive Metabolic Panel (10/30/2024) Sodium 140 mmol/L Chloride 101 mmol/L Potassium 3.6 mmol/L BUN 15.0 mg/dL Creatinine 1.01 mg/dL Glucose 223 mg/dL AST 26 U/L ALT 26 U/L Calcium 9.2 mg/dL Total Protein (A) CO2 28.5 mmol/L Albumin Alkaline Phosphatase Total Bilirubin Est, Glom Filt Rate 60 Anion Gap 14.1 mmol/L Blood BLOOD SPECIMEN / Unknown 10/30/2024 Panchito Ford DO CHEMISTRY ORDERABLES Final Re sult * CT NEEDLE BIOPSY LUNG PERCUTANEOUS (10/09/2024 11:06 AM EDT) Anatomical Region Laterality Modality Chest Computed Tomogra phy 10/09/2024 11:4 5 AM EDT Impressions 10/09/2024 11:47 AM EDT 1. Successful core biopsy of left lingular lung mass. 2. Note that during the biopsy, a small left pneumothorax developed, though this did not appear to expand throughout the procedure. Blood patch was injected through the coaxial needle after biopsy was completed. Patient sent to recovery room and will obtain chest x-ray in 1 hour to evaluate for any change in size of the pneumothorax. HISTORY: TOMY WEAVER is a Female of 59 years age. DIAGNOSIS: Other nonspecific abnormal finding of lung field COMPARISON: None available. CT Dose-Length Product (estimate related to radiation exposure from this exam): 331.82 mGy*cm. PROCEDURE: Following the discussion of the procedure, alternatives, risks versus benefits, informed consent was obtained from the patient. Specifically, risks of after-biopsy pain at the site, rare possibility of excessive hemorrhage, infection, injury to the adjacent organs were discussed and the patient verbalized understanding. Pre-procedure evaluation confirmed that the patient was an appropriate candidate for conscious sedation. Adequate sedation was maintained during the entire procedure. Vital signs, pulse oximetry, and response to verbal commands were monitored and recorded by the nurse throughout the procedure and the recovery period. Medical information was entered in the medical record including the medications and dosages used. The patient returned to baseline neurologic and physiologic status prior to leaving the department. No immediate sedation related complications were noted. Medication for conscious sedation was administered via IV route. 45 minutes of conscious sedation was provided. Following universal protocol, patient and site verification was performed with a timeout prior to the procedure. The patient was placed on the CT table in supine position and the left lateral chest area was prepped and draped in usual sterile fashion. Using the usual sterile conditions, lidocaine and CT guidance, the left lingular lung mass was accessed using an 20-guage coaxial biopsy needle system. Immediately after needle placement, a small pneumothorax was seen to develop which did not appear to expand throughout the procedure. After confirmation of appropriate localization of the needle, total of 2 samples were obtained and sent for pathological analysis. Blood patch was injected to prevent any further expansion of the pneumothorax. The coaxial needle system was removed and hemostasis was achieved by direct digital compression. The patient tolerated the procedure well. The patient left the CT suite in supine position to the recovery room in stable condition. Patient sent to recovery room to obtain chest x-ray in 1 hour to evaluate for any change in size of the pneumothorax. Electronically signed by Cole Pruitt Narrative Procedure Note Cole Pruitt MD - 10/09/2024 IMPRESSION: 1. Successful core biopsy of left lingular lung mass. 2. Note that during the biopsy, a small left pneumothorax developed,though this did not appear to expand throughout the procedure. Blood patch wasinjected through the coaxial needle after biopsy was completed. Patient sent torecovery room and will obtain chest x-ray in 1 hour to evaluate for any change insize of the pneumothorax. HISTORY: TOMY WEAVER is a Female of 59 years age. DIAGNOSIS: Other nonspecific abnormal finding of lung field COMPARISON: None available. CT Dose-Length Product (estimate related to radiation exposure from thisexam): 331.82 mGy*cm. PROCEDURE: Following the discussion of the procedure, alternatives, risks versusbenefits, informed consent was obtained from the patient. Specifically, risks of after-biopsy pain at the site, rare possibility of excessive hemorrhage, infection, injury to the adjacent organs were discussed and the patient verbalized understanding. Pre-procedure evaluation confirmed that the patient was an appropriatecandidate for conscious sedation. Adequate sedation was maintained during the entire procedure.Vital signs, pulse oximetry, and response to verbal commands were monitored and recorded bythe nurse throughout the procedure and the recovery period. Medical information was entered inthe medical record including the medications and dosages used. The patient returned to baseline neurologicand physiologic status prior to leaving the department. No immediate sedation relatedcomplications were noted. Medication for conscious sedation was administered via IV route. 45 minutes ofconscious sedation was provided. Following universal protocol, patient and site verification was performedwith a timeout prior to the procedure. The patient was placed on the CT table in supine position and the leftlateral chest area was prepped and draped in usual sterile fashion. Using theusual sterile conditions, lidocaine and CT guidance, the left lingular lung masswas accessed using an 20-guage coaxial biopsy needle system. Immediatelyafter needle placement, a small pneumothorax was seen to develop which did notappear to expand throughout the procedure. After confirmation of appropriate localization of the needle, total of 2 samples were obtained and sentfor pathological analysis. Blood patch was injected to prevent any furtherexpansion of the pneumothorax. The coaxial needle system was removed and hemostasiswas achieved by direct digital compression. The patient tolerated theprocedure well. The patient left the CT suite in supine position to the recoveryroom in stable condition. Patient sent to recovery room to obtain chest x-ray in 1 hour to evaluatefor any change in size of the pneumothorax. Electronically signed by Cole Edmond us Judy Dumont PA-C IMG CT ORDERABLES Final Resu lt * HM MAMMOGRAPHY (07/18/2024 10:25 AM EST) Anatomical Region Laterality Modality Other Historical Provider HEALTH MAINTENANCE Final Result * HM HPV (10/23/2020 12:51 PM EDT) Historical Provider HEALTH MAINTENANCE Final Result * HM COLONOSCOPY (08/24/2013 12:50 PM EST) Historical Provider HEALTH MAINTENANCE Final Result from Last 3 Months or Most Recently Relevant to Health Maintenance Insurance [employer] Care Teams Hydramatic Mechanic Relationship Specialty Start Date End Date Panchito Ford DO [address] [place], [place] [id number] PCP - General 11/15/12
--- OUTSIDE RECORDS SUMMARY | 2025-03-27 13:09 | XMS_ITS | Encounter Summary ---
Author Organization [facility] Address [address], [address] [place] [address] Care Team Providers Care Sister Superior Name Role Phone Panchito Ford DO Primary Care Provider [phone] Encounter Details Date Type Department Care Team ([facility] st Contact Info) Description 03/30/2024 Orders Only [facility] Primary and Specialty Care [address] [place] [address] Provider, MD Sushant Social History Tobacco Use Types Packs/Day Years Used Date Smoking Tobacco: Every Day Cigarettes 1 31.6 Started: 1993 Smokeless Tobacco: Never Alcohol Use Standard Drinks/Week Comments Yes 0 (1 standard drink = 0.6 oz pur e alcohol) Overall Financial Resource Strain (CARDIA) Answe r Date Recorded How hard is it for you to pa y for the very basics like food, housing, medical care, and heating? Not hard at all 03/28/2024 PHQ-2 Answer Date Recorded PHQ-9 Total Score 0 03/28/2024 Hunger Vital Sign Answer Date Recorded Within [...] any time in the past 12 m [facility], were you homeless or living in a detention (including now)? No 03/28/2024 Food Insecurity Answer [...] Description 04/11/2025 4:00 PM EDT Office Visit [facility] Primary Care [address] [place] [address] Panchito Ford DO [address] [place] [address] 3 mom f/u documented as of this encounter Procedures Procedure Name Priority Date/Time Associated Diagnosis Comments CT LUNG SCREENING (INITIAL/ANNUAL) Routine 01/07/2021 12:48 PM EDT HM HPV Routine 10/23/2020 12:51 PM EDT MAMMOGRAPHY Routine 01/10/2015 12:49 PM EDT COLONOSCOPY Routine 08/24/2013 12:50 PM EST documented in this encounter Results * CT LUNG SCREENING (01/07/2021 12:48 PM EDT) Anatomical Region Laterality Modality Lung, Chest Computed Tomogra phy us Historical Provider IMG CT ORDERABLES Final R esult * HM HPV (10/23/2020 12:51 PM EDT) us Historical Provider HEALTH MAINTENANCE Final Result * MAMMOGRAPHY (01/10/2015 12:49 PM EDT) Anatomical Region Laterality Modality Other us Historical Provider HEALTH MAINTENANCE Final Result * HM COLONOSCOPY (08/24/2013 12:50 PM EST) us Historical Provider HEALTH MAINTENANCE Final Result documented in this encounter Visit Diagnoses Not on filedocumented in this encounter Care Teams Sister Superior Relationship Specialty Start Date End Date Panhcito Ford DO [address] [place], [place] [id number] PCP - General 11/15/12 documented as of this encounter
--- OUTSIDE RECORDS SUMMARY | 2025-03-27 13:09 | XMS_ITS | Encounter Summary ---
Author Organization [facility] Address [address], [address] [place] [address] Care Team Providers Care Lumber Checker Name Role Phone Leandro Fordory Bianca CRUZ Primary Care Provider [phone] Encounter Details Date Type Department Care Team ([facility] st Contact Info) Description 11/13/2024 Orders Only [facility] Primary Care [address] [place], [place] [id number] Provider, MD Sushant Social History Tobacco Use Types Packs/Day Years Used Date Smoking Tobacco: Every Day Cigarettes 1 31.6 Started: 1993 Smokeless Tobacco: Never Alcohol Use Standard Drinks/Week Comments Yes 0 (1 standard drink = 0.6 oz pur e alcohol) [facility] Utilities Answer Date Recorded In the past 12 months has e electric, gas, oil, or water company threatened to [...] any time in the past 12 m [facility], were you homeless or living in a fci (including now)? No 11/03/2024 Food Insecurity Answer [...] Description 04/11/2025 4:00 PM EDT Office Visit [facility] Primary Care [address] [place] [address] Panchito Ford, DO [address] [place] [address] 3 mom f/u documented as of this encounter Procedures Procedure Name Priority Date/Time Associated Diagnosis Comments LIPID PANEL Routine 10/30/2024 1:55 PM EDT HEMOGLOBIN A1C Routine 10/30/2024 1:53 PM EDT documented in this encounter Results * (ABNORMAL) Lipid Panel (10/30/2024 1:55 PM [...] PM Final 10/30/2024 4:43 PM NA Facility: [facility] [place] Specimen Source: NA Admitting Provider: Ordered [...] RISK >11.0 HIGH RISK Performed By: [facility] Historical Provider CHEMISTRY ORDERABLES Edit ed Result - Final * Hemoglobin A1C (10/30/2024 1:53 PM EDT) Hemoglobin A1C 6.6 % Estimated Avg Glucose Blood BLOOD SPECIMEN / Unknown Impressions Kiarra Louis MA - 10/30/2024 1:53 PM EDT Glycohemoglobin A1C Date Collected Date Received Status Reported/Status Changed Priority 10/30/2024 3:45 PM 10/30/2024 3:46 PM Final 10/30/2024 4:43 PM NA Facility: [facility] [place] Specimen Source: NA Admitting Provider: Ordered Date: 10/30/2024 3:45 PM Body Site: NA Attending Provider: Ordering Provider: Patient Class: Ambulatory Test Result Reference Out Of Range Units Corrected/Cancelled Glycohemoglobin A1C 6.6 4.5-6.2 High % Result Comments: ADA RECOMMENDED LIMIT 4.0 - 6.0 ADA THERAPEUTIC TARGET < 7.0 ACTION SUGGESTED > 7.0 Estimated Average Glucose 143 mg/dL Performed By: [facility] us Historical Provider CHEMISTRY ORDERABLES Edit ed Result - Final documented in this encounter Visit Diagnoses Not on filedocumented in this encounter Additional Health Concerns Assessment Noted Time A fall risk assessment has been complete d for the patient 11/03/2024 1:17 PM EDT documented as of this encounter Care Teams Lumber Checker Relationship Specialty Start Date End Date Panchito Ford DO [address] [place] [address] PCP - General 11/15/12 documented as of this encounter
--- OUTSIDE RECORDS SUMMARY | 2025-03-27 13:09 | XMS_ITS | Encounter Summary ---
Author Organization [employer] Address [id number] [address] [place] [address] Care Team Providers Care Mechanical Systems Control Engineer Name Role Phone Frida Valdez DIRECTOR TRANSPORTATION-CHILD CARE CENTER ASSISTANT DIRECTOR Primary Care Provider [phone] Encounter Details Date Type Department Care Team (Late st Contact Info) Description 11/15/2024 Telephone [facility] [address] [place] [address] Cruzito Phelps MD [address], [facility] [[email or web address] [address] [place] [address] Social History Tobacco Use Types Packs/Day Years [...] on file documented as of this encounter Miscellaneous Notes * Telephone Encounter - Edwige Harkins - 11/15/2024 11:34 AM EDT [facility] scheduling is calling to get an updated order with new diagnosis codes. The codes F17.210 and I35.0 are not being covered by medicare. Please fax an updated order with new diagnosis codes to [phone]. [facility] scheduling can be reached at [phone] direct line. Thank you. documented in this encounter Plan of Treatment Not on file documented as of this encounter Visit Diagnoses Not on filedocumented in this encounter Care Teams Mechanical Systems Control Engineer Relationship Specialty Start Date End Date Frida Valdez, DIRECTOR TRANSPORTATION-CHILD CARE CENTER ASSISTANT DIRECTOR [address] [place] [address] PCP - General Nurse Practitioner 02/14/24 documented as of this encounter
--- OUTSIDE RECORDS SUMMARY | 2025-03-27 13:09 | XMS_ITS | Encounter Summary ---
Author Organization [facility] Address [address] [place] [address] Phone Care Team Providers Care Security Attendant Name Role Phone Panchito Ford DO Primary Care Provider + Encounter Details Date Type Department Care Team (Late st Contact Info) Description 11/17/2024 Scanned Document [facility] [address] [place] [id number] Scanning, Generic Provider Social History Tobacco Use [...] Description 06/07/2025 3:15 PM EST Office Visit [facility] [address] [place] [address] Ancelmo Ortiz MD [address] [facility] [address] [place], [place] [phone] documented as of this encounter Procedures Procedure Name Priority Date/Time Associated Diagnosis Comments NUCLEAR STRESS TEST - ONBASE SCAN 11/17/2024 STRESS TEST - ONBASE SCAN 11/17/2024 STRESS TEST - ONBASE SCAN 11/17/2024 documented in this encounter Results * Nuclear Stress Test - Onbase Scan (11/17/2024) Narrative 11/17/2024 Ordered by an unspecified provider. us Generic Provider Scanning CV STRESS PROCEDURES F inal Result * Stress Test - Onbase Scan (11/17/2024) Narrative 11/17/2024 Ordered by an unspecified provider. us Generic Provider Scanning CV STRESS PROCEDURES F inal Result * Stress Test - Onbase Scan (11/17/2024) Narrative 11/17/2024 Ordered by an unspecified provider. us Generic Provider Scanning CV STRESS PROCEDURES F inal Result documented in this encounter Visit Diagnoses Not on filedocumented in this encounter Care Teams Security Attendant Relationship Specialty Start Date End Date Panchito Ford DO [address] [place], [place] [phone] PCP - General Family Medicine 10/26/24 documented as of this encounter
--- OUTSIDE RECORDS SUMMARY | 2025-03-27 13:09 | XMS_ITS | Encounter Summary ---
Author Organization [employer] Address [id number] [address] [place] [address] Care Team Providers Care Batter Out Name Role Phone Frida Valdez FOOD AND NUTRITION SERVICES ASSISTANT-DRYWALL SANDER Primary Care Provider [phone] Encounter Details Date Type Department Care Team (Late st Contact Info) Description 04/13/2024 Orders Only [facility] [address] [place] [address] Cruzito Phelps MD [address], [facility] [address] [place] [address] Social History Tobacco Use Types Packs/Day Years [...] Procedure Name Priority Date/Time Associated Diagnosis Comments VASC ARTERIAL DOPPLER LOWER BILATERAL MULTI LEVEL/PVR Routine 12/29/2023 4:24 PM EDT documented in this encounter Results * Vas art doppler lwr bilat mult lev/PVR (12/29/2023 4:24 PM EDT) Anatomical Region Laterality Modality Vascular Bilateral Ultrasound us Cruzito Phelps MD CV VASCULAR ORDERABLES Final Result documented in this encounter Visit Diagnoses Not on filedocumented in this encounter Care Teams Batter Out Relationship Specialty Start Date End Date Frida Valdez, FOOD AND NUTRITION SERVICES ASSISTANT-DRYWALL SANDER [address] [place] [address] PCP - General Nurse Practitioner 02/14/24 documented as of this encounter
--- OUTSIDE RECORDS SUMMARY | 2025-03-27 13:09 | XMS_ITS | Encounter Summary ---
Author Organization [facility] Address [address] [place] [address] Phone Care Team Providers Care Electrical Power Engineer Name Role Phone Panchito Ford DO Primary Care Provider + Encounter Details Date Type Department Care Team (Late st Contact Info) Description 01/15/2022 Orders Only [facility] [address] Virtual [place] [address] Conversion, Onbase Social History Tobacco Use Types Packs/Day Years Used Date Smoking Tobacco: Never Assessed Comments Unknown Sex and Gender Information Value Date Recorded Sex Assigned at Not on file Legal Sex Female 12:21 PM EST Gender Identity Not on file Sexual Orientation Not on file documented as of this encounter Plan of Treatment Upcoming Encounters Date Type Department Care Team (Late st Contact Info) Description 06/07/2025 3:15 PM EST Office Visit [address] [place] [address] Ancelmo Ortiz MD [address] [facility] [address] [place] [address] Scheduled Orders Name Type Priority Associated Diagnoses Orde r Schedule OUTSIDE LAB SCAN Lab Ordered: 01/15/2022 documented as of this encounter Visit Diagnoses Not on filedocumented in this encounter Care Teams Electrical Power Engineer Relationship Specialty Start Date End Date Panchito Ford DO [address] [place] [address] PCP - General Family Medicine 10/26/24 documented as of this encounter
--- OUTSIDE RECORDS SUMMARY | 2025-03-27 13:09 | XMS_ITS | Clinical Summary ---
Author Organization [facility] Address [address] [place] [address] Phone Care Team Providers Care Casino Accountant Name Role Phone Panchito Ford DO Primary Care Provider + Allergies Active Allergy Reactions Criticality Noted Date Comments Atorvastatin Nausea Only,Myalgia,Other,Rash ,Unknown Low 11/10/2016 Severe muscle aches Penicillins Anaphylaxis,Rash,Hailee rtn ess of breath,Swelling,Unknown High 08/11/1999 ARREST respiratory arrest BABY respiratory arrest respiratory arrest ARREST respiratory arrest BABY Pravastatin Myalgia High 02/10/2024 Muscle pains and blurred vision reports seeing stars Medications aspirin 81 mg EC tablet Take 1 tablet (81 mg) by mouth 1 time. 12/06/2023 Active cholecalciferol (Vitamin D3) 1,250 mcg (50,000 unit) tablet Take 1 tablet (50,000 Units) by mouth 1 (one) time per week. 05/17/2024 Active NovoLOG U-100 Insulin aspart 100 unit/mL injection Use as directed with insulin pump. Max daily dose 90 units. 12/01/2023 Active rosuvastatin (Crestor) 5 mg tablet Take 1 tablet (5 mg) by mouth once daily. 05/17/2024 Active buPROPion XL (Wellbutrin XL) 150 mg 24 hr tablet Take 1 tablet (150 mg) by mouth twice a day. 01/13/2024 Active budesonide EC (Entocort EC) 3 mg 24 hr capsule Take 3 capsules (9 mg) by mouth once daily in the morning. Take before meals. 05/17/2024 Active clopidogrel (Plavix) 75 mg tablet Take 1 tablet (75 mg) by mouth once daily. 05/17/2024 Active dicyclomine (Bentyl) 20 mg tablet Take 1 tablet (20 mg) by mouth if needed. Active estradiol (Estrace) 2 mg tablet Take 1 tablet (2 mg) by mouth once daily at bedtime. 12/07/2023 Active ibuprofen 800 mg tablet Take 1 tablet (800 mg) by mouth 2 times a day as needed. 08/07/2024 Active lamoTRIgine (LaMICtal) 150 mg tablet Take 1 tablet (150 mg) by mouth once daily. 06/27/2024 Active levothyroxine (Synthroid, Levoxyl) 150 mcg tablet Take 1 tablet (150 mcg) by mouth once daily. Active progesterone (Prometrium) 100 mg capsule Take 1 capsule (100 mg) by mouth once daily at bedtime. 05/17/2024 Active propranolol LA (Inderal LA) 80 mg 24 hr capsule Take 1 capsule (80 mg) by mouth once daily. 06/27/2024 Active Active Problems Problem Noted Date Diagnosed Date Type 1 diabetes (Multi) 10/27/2024 BMI 24.0-24.9, adult 10/26/2024 Ulcerative colitis 10/26/2024 Depression 10/26/2024 Abnormal echocardiogram 10/26/2024 Mitral valve regurgitation 10/26/2024 Cardiomyopathy, ischemic 10/26/2024 CAD (coronary artery disease) 10/26/2024 Mixed hyperlipidemia 10/26/2024 Pre-operative clearance 10/26/2024 Malignant neoplasm of left lung (Multi) 10/27/19 25 Tobacco abuse 10/26/2024 Anxiety 10/26/2024 Dyspnea on exertion 10/26/2024 Claudication 10/26/2024 Acute cataract 10/26/2024 Snoring 10/26/2024 Chest pain 10/26/2024 Abnormal EKG 10/26/2024 Hx of myocardial infarction 10/26/2024 Resolved Problems Problem Noted Date Diagnosed Date Resolved Date Type 2 diabetes mellitus wit hout complication, with long-term current use of insulin 10/26/2024 10/27/2024 Family History Medical History Relation Name Comments Diabetes Mother Diabetes Sister Mental illness Sister Peripheral vascular disease Sister Relation Name Status Comments Mother Sister Social History Tobacco Use Types Packs/Day Years Used Date Smoking Tobacco: Every Day Cigarettes Smokeless Tobacco: Never Tobacco Cessation:Counseling Given: Yes Alcohol Use Standard Drinks/Week Comments Yes 14 (1 standard drink = 0.6 oz pu re alcohol) Comments Unknown Sex and Gender Information Value Date Recorded Sex Assigned at Not on file Legal Sex Female 12:21 PM EST Gender Identity Not on file Sexual Orientation Not on file Last Filed Vital Signs Vital Sign Reading Time Taken Comments Blood Pressure 102/60 11/23/2024 4:10 PM EDT Pulse 60 11/23/2024 4:10 PM EDT Temperature - - Respiratory Rate - - Oxygen Saturation - - Inhaled Oxygen Concentration - - Weight 60.8 kg (134 lb) 11/23/2024 4:10 PM EDT Height 156.2 cm (5' 1.5 ) 11/23/2024 4:10 PM EDT Body Mass Index 24.91 11/23/2024 4:10 PM EDT Plan of Treatment Upcoming Encounters Date Type Department Care Team (Late st Contact Info) Description 06/07/2025 3:15 PM EST Office Visit [facility] [address] [facility] [address] [place] [address] Ancelmo Ortiz MD [address] [facility] [address] [place] [address] Health Maintenance Due Date Last Done Comments Bone Density Scan 1965 CT Colonography 1965 Diabetes: Celiac Disease Screening 1965 Diabetes: Hemoglobin A1C 1965 FIT-DNA (Cologuard) 1965 FIT 1965 HIV Screening 1965 Lipid Panel 1965 TB Test 1965 TSH Level 1965 Vitamin B-12 1965 Vitamin D25-[place] 1965 Welcome to Medicare Visit 1965 Hepatitis B Surface Antibody 1966 MMR Vaccines (1 of 1 - Stand leonid series) 1966 Diabetes: Retinopathy Screening 1975 Hepatitis C Screening 1983 Pneumococcal Vaccine (1 of 2 - PCV) 01/09/1984 Cervical Cancer Screening 1986 HPV/Cotest 1986 Pap Smear 1986 DTaP/Tdap/Td Vaccines (1 - Tdap) 1987 Mammogram 2005 Zoster Vaccines (1 of 2) 2015 Colonoscopy 08/24/2023 08/24/2013 COVID-19 Vaccine (1 - 2023-2 5 season) 2024 RSV High Risk: (Elderly (60+ ) or Population) (1 - Risk 60-74 years 1-dose series) 2025 Influenza Vaccine (#1) 2025 Diabetes: Urine Protein Screening 01/10/2026 025 Colorectal Cancer Screening 10/14/2027 Sigmoidoscopy 10/14/2027 10/13/2022 HIB Vaccines Aged Out No longer eligi ble based on patient's age to complete this topic HPV Vaccines Aged Out No longer eligi ble based on patient's age to complete this topic Hepatitis A Vaccines Aged Out No long er eligible based on patient's age to complete this topic Hepatitis B Vaccines Aged Out No long er eligible based on patient's age to complete this topic IPV Vaccines Aged Out No longer eligi ble based on patient's age to complete this topic Meningococcal Vaccine Aged Out No [place] eligible based on patient's age to complete this topic Rotavirus Vaccines Aged Out No longer eligible based on patient's age to complete this topic Insurance [employer] Care Teams Casino Accountant Relationship Specialty Start Date End Date Panchito Ford DO [address] [place], [place] [id number] PCP - General Family Medicine 10/26/24
--- OUTSIDE RECORDS SUMMARY | 2025-03-27 13:09 | XMS_ITS | Encounter Summary ---
Author Organization [facility] Address [address], [address] [place] [address] Care Team Providers Care Senior Manufacturing Engineer Name Role Phone Leandro Fordory Bianca CRUZ Primary Care Provider [phone] Encounter Details Date Type Department Care Team ([facility] st Contact Info) Description 02/27/2025 Orders Only [facility] [address] [place], [place] [id number] Provider, MD Sushant Social History Tobacco Use Types Packs/Day Years Used Date Smoking Tobacco: Every Day Cigarettes 1 31.6 Started: 1993 Smokeless Tobacco: Never Alcohol Use Standard Drinks/Week Comments Yes 0 (1 standard drink = 0.6 oz pur e alcohol) [place] Utilities Answer Date Recorded In the past [...] any time in the past 12 m [facility], were you homeless or living in a detention (including now)? No 11/03/2024 Food Insecurity Answer [...] Description 04/11/2025 4:00 PM EDT Office Visit [facility] [address] [place] [address] Panchito Ford, DO [address] [place] [address] 3 mom f/u documented as of this encounter Visit Diagnoses Not on filedocumented in this encounter Additional Health Concerns Assessment Noted Time A fall risk assessment has been complete d for the patient 11/03/2024 1:17 PM EDT documented as of this encounter Care Teams Senior Manufacturing Engineer Relationship Specialty Start Date End Date Panchito Ford DO [address] [place] [address] PCP - General 11/15/12 documented as of this encounter
--- OUTSIDE RECORDS SUMMARY | 2025-03-27 13:09 | XMS_ITS | Encounter Summary ---
Author Organization [employer] [facility] [employer] Address [facility] [id number] [address] [place] [address] Care Team Providers Care Rocket Scientist Name Role Phone Frida Valdez Primary Care Provider [phone] Encounter Details Date Type Department Care Team (Late st Contact Info) Description 11/17/2024 Orders Only [facility] [address] [place] [address] Sharda Lobo CMA Social History Tobacco Use Types Packs/Day Years [...] on filedocumented in this encounter Care Teams Rocket Scientist Relationship Specialty Start Date End Date Frida Valdez APRN-CNP [address] [place] [address] PCP - General Nurse Practitioner 02/14/24 documented as of this encounter
--- OUTSIDE RECORDS SUMMARY | 2025-03-27 13:09 | XMS_ITS | Encounter Summary ---
Author Organization [facility] Address [address], [address] [place] [address] Care Team Providers Care Tangled Yarn Spool Straightener Name Role Phone LoganPanchito Primary Care Provider [phone] Encounter Details Date Type Department Care Team ([facility] st Contact Info) Description 10/03/2024 Telephone [facility] [address] [place], [place] [id number] Alexandra Mars RN Social History Tobacco Use Types Packs/Day [...] any time in the past 12 m [facility], were you homeless or living in a long-term (including now)? No 03/28/2024 Food Insecurity Answer [...] on file documented as of this encounter Progress Notes * Alexandra Mars RN - 10/03/2024 10:13 AM EST 1012 left voicemail message with pre-procedure instructions. On 10/09/24 you will need to arrive at 9AM (from home) and check in at the [facility] CheckIn desk. Do not eat or drink after midnight. Patient will make arrangements for transportation. Patient to hold ASPIRIN/ PLAVIX for 5 days prior to procedure - starting 10/04/2024 Hold advil/motrin 1 day prior - starting 10/08/24. Insulin pump can be removed morning of on arrival. Please call back with any questions or concerns at [phone]. documented in this encounter Plan of Treatment Upcoming Encounters Date Type Department Care Team (Late st Contact Info) Description 04/11/2025 4:00 PM EDT Office Visit [facility] [address] [place] [address] Panchito Ford DO [address] [place] [address] 3 mom f/u documented as of this encounter Visit Diagnoses Not on filedocumented in this encounter Additional Health Concerns Assessment Noted Time A fall risk assessment has been complete d for the patient 04/04/2024 3:05 PM EDT documented as of this encounter Care Teams Tangled Yarn Spool Straightener Relationship Specialty [place] [address] [place] [id number] PCP - General 11/15/12 documented as of this encounter
--- OUTSIDE RECORDS SUMMARY | 2025-03-27 13:09 | XMS_ITS | Clinical Summary ---
Author Organization [employer] Address [id number] [address] [place] [address] Care Team Providers Care Roll Repairer Name Role Phone Frida Valdez DENTAL CERAMIST HELPER-MINE BOSS Primary Care Provider [phone] Allergies Active Allergy Reactions Criticality Noted Date Comments Atorvastatin Rash,Other (See Comments),Nausea Low 11/10/2016 Severe muscle aches Penicillin G Shortness Of Breath,Rash High 4 ARREST Penicillins Other (See Comments) High 05/31/2002 respiratory arrest BABY Pravastatin Other (See Comments) High 02/10/2024 Muscle pains and blurred vision reports seeing stars Medications ergocalciferol (DRISDOL) 1,250 mcg (50,000 unit) capsule Take 1 capsule (50,000 Units total) by mouth once a week. 4 Active progesterone (PROMETRIUM) 100 mg capsuleIndication s:endometrial hyperplasia prevention Take 1 capsule (100 mg total) by mouth nightly Indications: prevention of abnormal growth in cells of uterine lining. Active levothyroxine (SYNTHROID, LEVOTHROID) 100 MCG tabletIndications :hypothyroidism Take 1 tablet (100 mcg total) by mouth in the morning. Indications: a condition with low thyroid hormone levels. Active buPROPion XL (WELLBUTRIN XL) 150 mg 24 hr tablet Take 1 tablet (150 mg total) by mouth in the morning. 30 tablet 6 4 Active clopidogreL (PLAVIX) 75 mg tablet Take 1 tablet (75 mg total) by mouth in the morning. 30 tablet 12 4 Active insulin aspart SUBCUTANEOUS PUMP (NovoLOG) 100 UNIT/ML patient supplied pump Inject 19 Units under the skin continuously. Patient to self-manage pump according to the following parameters: 19 units in 12 hours and then adds sliding scale with meals Active propranoloL (INDERAL) 20 mg tabletIndications :essential tremor Take 1 tablet (20 mg total) by mouth in the morning and 1 tablet (20 mg total) before bedtime. Indications: essential tremor. Active rosuvastatin (CRESTOR) 5 mg tabletIndications :hyperlipidemia Take 1 tablet (5 mg total) by mouth in the morning. Indications: excessive fat in the blood. Active budesonide EC (ENTOCORT EC) 3 mg 24 hr capsule Take 3 capsules (9 mg total) by mouth every morning. ULCERATIVE COLITIS Active estradioL (ESTRACE) 2 mg tabletIndications :vasomotor symptoms associated with menopause Take 1 tablet (2 mg total) by mouth nightly Indications: change of life signs. Active hydrOXYzine (ATARAX) 25 mg tablet TAKE 1 TABLET BY MOUTH 4 TIMES A DAY NEEDED FOR ANXIETY Active lamoTRIgine (LaMICtal) 25 mg tablet TAKE 1 TAB BY MOUTH DAILY X2 WKS, 2 TABS DAILY X2 WKS, 3 TABS DAILY X2 WKS, 4 TABS DAILY X2 WKS 4 Active escitalopram (LEXAPRO) 10 mg tablet Take 1 tablet (10 mg total) by mouth in the morning. Active cholecalciferol, vitamin D3, 50,000 units tablet Take 1 tablet (50,000 Units total) by mouth once a week. Active aspirin 81 mg TAKE 1 TABLET (81 MG TOTAL) BY MOUTH IN THE MORNING 90 tablet 1 4 Active Active Problems Problem Noted Date Diagnosed Date Aortic stenosis 02/10/2024 Assessment & Plan (11/09/2024 12:02 PM EDT): We will get PVR and proper duplex ultrasound.Continue aspirin Plavix and statin. Smoking cessation. Assessment & Plan (02/10/2024 11:34 AM EDT): We will do shockwave intravascular lithotripsy and stenting Cigarette smoker motivated to quit 01/13/2024 Assessment & Plan (11/09/2024 12:02 PM EDT): Counseled on smoking cessation for at least 3 minutes. She is willing to quit. Assessment & Plan (03/21/2024 6:25 PM EDT): Counseled on smoking cessation at length, For at least 3 minutes. She is willing to quit. Assessment & Plan (02/10/2024 11:37 AM EDT): Counseled her on smoking cessation risk factors modification she was she will work on smoking cessation. She is motivated. 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 She is on aspirin Plavix and statin. Will continue aspirin Plavix and Crestor. She will quit smoking. Will get surveillance imaging in 6 months. Assessment & Plan (02/10/2024 11:35 AM EDT): Left lower extremity angiogram and intervention. There is deterioration in her wound looked healed almost healed the last time I saw her in the hospital however this time she has a necrotic tip that is black in color and looks worse than before. She had a tandem stenotic lesions in the CT angiogram that were not apparent in the regular angiogram. After treating the inflow and stenting of the aorta will do left lower extremity angiogram and intervention. Assessment & Plan (01/13/2024 11:23 AM EDT): Will prescribe aspirin Plavix and statin. Left lower extremity angiogram and intervention as soon as possible Encounters Date Type Department Care Team Description 02/26/2025 [facility] [address] [place] [address] Sharda Lobo CMA Aortic valve stenosis, etiology of cardiac valve disease unspecified; Cigarette smoker motivated to quit from Last 3 Months Family History Medical History Relation Name Comments Anesthesia problems Father CONFUSIO N Relation Name Status Comments Father Social History Tobacco Use Types Packs/Day Years Used Date Smoking Tobacco: Every Day Cigarettes Passive Smoke Exposure: Past Smokeless Tobacco: Never Tobacco Cessation:Ready to Q uit: Not Asked; Counseling Given: Not Answered Comments:HAS CUT BACK, SMOKED FOR 45 YEARS AVERAGE 1 PPD Alcohol [...] Sign Reading Time Taken Comments Blood Pressure 112/64 11/09/2024 11:14 AM EDT Pulse 52 11/09/2024 11:12 AM EDT Temperature 36 C (96.8 F) 02/22/2024 5:30 PM EDT Respiratory Rate 17 02/22/2024 5:30 PM EDT Oxygen Saturation 96% 03/16/2024 10:54 AM EDT Inhaled Oxygen Concentration - - Weight 59.9 kg (132 lb) 11/09/2024 11:12 AM EDT Height 160 cm (5' 3 ) 11/09/2024 11:12 AM EDT Body Mass Index 23.38 11/09/2024 11:12 AM EDT Plan of Treatment Health Maintenance Due Date Last Done Comments Tobacco Counseling 1965 Depression Screening 1977 DTaP,Tdap and Td Vaccines (1 - Tdap) 01/09/1984 Pap Smear 1986 Zoster (Shingles) Vaccine (1 of 2) 2015 Influenza Vaccine 04/02/2025 Adult BMI Screening 11/09/2025 11/09/2024 Tobacco Screening 11/09/2025 11/09/2024 Medical Devices Implanted Type Area [place] Hydraulic Press Operator Device Identifier Shelf Expiration Date Model / Serial / Lot Stent 11mm 16sq Mm 8fr 29mm Bln Expandable Gw [place] Vbhn Vbx - [id number] - [id number] Implanted:Qty: 1 on 02/22/2024 by Cruzito Phelps MD at [facility] Stent N/A: Arterial [place] 08/23/2026 [id number] / [id number] / Description:AORTIC STENT Insurance [employer] Care Teams Roll Repairer Relationship Specialty Start Date End Date Frida Valdez, DENTAL CERAMIST HELPER-MINE BOSS [address] [id number] PCP - General Nurse Practitioner 02/14/24
--- OUTSIDE RECORDS SUMMARY | 2025-03-27 13:09 | XMS_ITS | Encounter Summary ---
Author Organization [facility] Address [address], [address] [place] [address] Care Team Providers Care Javascript Application Developer Name Role Phone Leandro Fordory Bianca CRUZ Primary Care Provider [phone] Encounter Details Date Type Department Care Team ([facility] st Contact Info) Description 08/03/2024 Orders Only [facility] [address] [place], [place] [phone] Provider, MD Sushant Social History Tobacco Use [...] any time in the past 12 m [facility], were you homeless or living in a halfway (including now)? No 03/28/2024 Food Insecurity Answer [...] Description 04/11/2025 4:00 PM EDT Office Visit [facility] [address] [place] [address] Panchito Ford DO [address] [place] [address] 3 mom f/u documented as of this encounter Procedures Procedure Name Priority Date/Time Associated Diagnosis Comments MAMMOGRAPHY Routine 07/18/2024 10:25 AM EST documented in this encounter Results * HM MAMMOGRAPHY (07/18/2024 10:25 AM EST) Anatomical Region Laterality Modality Other us Historical Provider HEALTH MAINTENANCE Final Result documented in this encounter Visit Diagnoses Not on filedocumented in this encounter Additional Health Concerns Assessment Noted Time A fall risk assessment has been complete d for the patient 04/04/2024 3:05 PM EDT documented as of this encounter Care Teams Javascript Application Developer Relationship Specialty Start Date End Date Panchito Ford DO [address] [place] [address] PCP - General 11/15/12 documented as of this encounter
--- OUTSIDE RECORDS SUMMARY | 2025-03-27 13:09 | XMS_ITS | Encounter Summary ---
Author Organization [employer] Address [id number] [address] [place] [address] Care Team Providers Care Journeyman Millwright Name Role Phone Frida Valdez PRICK STITCHER-CITRUS PICKER Primary Care Provider [phone] Encounter Details Date Type Department Care Team (Late st Contact Info) Description 11/09/2024 Telephone [facility] [address] [place] [address] Cruzito Phelps MD [address] [place] [address] Social History Tobacco Use Types Packs/Day Years [...] encounter Miscellaneous Notes * Telephone Encounter - Therese Anglin - 11/09/2024 12:24 PM EDT Arpita is calling from [facility]. She is stating someone asked them to do an addendum commenting on the status of the stent: there is no imaging that the stent is visualized on that they have,even going back to 01/23. There is also no mention of a stent on the orders for those tests she haddone there. In order to capture imaging of the stent, an alternate type of testing may need to be ordered. [phone] is main number, then ask for Arpita in Radiology if you have any further questions. Please advise. documented in this encounter Plan of Treatment Not on file documented as of this encounter Visit Diagnoses Not on filedocumented in this encounter Care Teams Journeyman Millwright Relationship Specialty Start Date End Date Frida Valdez, PRICK STITCHER-CITRUS PICKER [address] [place] [address] PCP - General Nurse Practitioner 02/14/24 documented as of this encounter
--- OUTSIDE RECORDS SUMMARY | 2025-03-27 13:09 | XMS_ITS | Encounter Summary ---
Author Organization [facility] Address [id number] [address] [place] [address] Care Team Providers Care Rotary Dump Operator Name Role Phone Frida Valdez [facility] Primary Care Provider [phone] Encounter Details Date Type Department Care Team (Late st Contact Info) Description 02/26/2025 Orders Only [facility] [address] [place] [address] Sharda Lobo CMA Aortic valve stenosis, etiology of cardiac valve disease unspecified; Cigarette smoker motivated to quit Social History [...] as of this encounter Visit Diagnoses Diagnosis Aortic valve stenosis, etiology of cardiac valve disease unspecified Cigarette smoker motivated to quit documented in this encounter Care Teams Rotary Dump Operator Relationship Specialty Start Date End Date Frida Valdez, [facility] [address] [place] [address] PCP - General Nurse Practitioner 02/14/24 documented as of this encounter
--- OUTSIDE RECORDS SUMMARY | 2025-03-27 13:09 | XMS_ITS | Clinical Summary ---
Author Organization [facility] Address [address] [place], [place] [address] Care Team Providers Care Telecom Engineer Name Role Phone Unavailable Primary Care Provider Unavailabl e Allergies Active Allergy Reactions Criticality Noted Date Comments Atorvastatin Calcium Other: See Comments 2016 Severe muscle aches Penicillins 05/31/2002 respiratory arrest Medications loperamide hcl(IMODIUM A-D 2 MG TAB) Take one(1) tablet daily. 0 0 Active metoprolol tartrate(LOPRESSO R 50 MG TAB) Take one(1) tablet daily. 0 0 Active levothyroxine sodium(SYNTHROID 150 MCG TAB) mon. wed. fri. sun. 0 0 Active COMPOUNDED PRESCRIPTION insulin pump, use as diretced 0 0 Active ergocalciferol( TAMIN D 50,000 UNIT CAP) once per week 0 0 Active celecoxib (CELEBREX) 200 mg capsule Take 200 mg by mouth twice daily. Active progesterone micronized (PROMETRIUM) 100 mg capsule Take 100 mg by mouth once daily. Active lamoTRIgine 200 mg ODT Take by mouth. Active estradiol (ESTRACE) 2 mg tablet Take 2 mg by mouth once daily. Active aspirin, enteric coated (ASPIRIN, ENTERIC COATED) 81 mg EC tablet Take 81 mg by mouth once daily. Active CITALOPRAM HYDROBROMIDE (CELEXA ORAL) Take by mouth. Active buPROPion HCl (WELLBUTRIN SR) 200 mg 12 hr tablet Take 200 mg by mouth twice daily. Active OMEGA-3 FATTY ACIDS/FISH OIL (FISH OIL OMEGA 3-6-9 ORAL) Take by mouth. Active INSULIN LISPRO (HUMALOG SUBCUTANEOUS) Inject subcutaneousl y. Active IBUPROFEN (MOTRIN ORAL) Take by mouth. Active busPIRone (BUSPAR) 10 mg tablet Take 10 mg by mouth twice daily. Active Active Problems Problem Noted Date Diagnosed Date Chronic pain syndrome 11/10/2016 Imbalance 11/10/2016 Dysphagia 11/10/2016 Cyst of thyroid 08/02/1999 Overview (11/10/2016): Thyroid cyst Hypothyroid High blood pressure Heart disease Type 1 diabetes mellitus without complication Overview (11/10/2016): Diabetes mellitus Back pain S/P laminectomy with spinal fusion Former smoker Family History Medical History Relation Comments Diabetes Mother Hypertension Mother Diabetes Sister 1 Relation Status Comments Brother Alive 44, thyroid, bip olar Father Alive 63, CAD, mild Mother Alive 63, healthy Sister 1 Alive 40, hyperthyroid ism Sister 2 Alive 44, healthy Sister 3 Alive 35, healthy Social History Tobacco Use Types Packs/Day Years [...] Not on file N ot on file Last Filed Vital Signs Vital Sign Reading Time Taken Comments Blood Pressure 122/64 11/10/2016 3:48 PM EDT Pulse 67 11/10/2016 3:48 PM EDT Temperature - - Respiratory Rate 20 11/10/2016 3:48 PM EDT Oxygen Saturation 99% 11/20/2009 2:1 8 PM EDT Inhaled Oxygen Concentration - - Weight 58.5 kg (129 lb) 11/10/2016 3:48 PM EDT Height 160 cm (5' 3 ) 11/10/2016 3:48 PM EDT self report ht/wt Body Mass Index 22.85 11/10/2016 3:48 PM EDT Plan of Treatment Health Maintenance Due Date Last Done Comments Anxiety Screening 1983 Depression Screening 1983 HIV Screening 1983 Hepatitis C Screening 1983 DTaP,Tdap,Td Vaccine (1 - Tdap) 01/09/1984 Cervical Cancer Screening [address] Colonography 2010 Cologuard (FIT-DNA) 2010 Colonoscopy 2010 Colorectal Cancer Screening 2010 Diabetes Screening 2010 05/31/2002, 05/31/2002 Fecal Occult Blood 2010 Lipid Screening 2010 Sigmoidoscopy 2010 Pneumococcal Vaccine: 50+ (1 of 1 - PCV) 2015 Shingrix Vaccine (1 of 2) 2015 Influenza Vaccine (#1) 2025 RSV Vaccine (1 - 1-dose 75+ series) 01/09/2040 Procedures Procedure Name Priority Date/Time Associated Diagnosis Comments COMPREHENSIVE METABOLIC PANEL Routine 05/31/2002 4:58 PM EST Diabetes Uncompl Reece-Uncontrlled from Last 3 Months or Most Recently Relevant to Health Maintenance Results * (ABNORMAL) COMP METABOLIC PANEL (05/31/2002 4:58 PM EST) Protein, Total 7.0 6.0 - 8.4 g/dL [facility] Albumin 4.3 3.5 - 5.0 g/dL [facility] Calcium 9.8 8.5 - 10.5 mg/dL [facility] Bilirubin, Total 0.5 0.0 - 1.5 mg/dL [facility] Alkaline Phosphatase 61 20 - 120 U/L [facility] AST 18 7 - 40 U/L [facility] Glucose 133(A) 65 - 110 mg/dL [facility] BUN 15 8 - 25 mg/dL [facility] Creatinine 0.8 0.7 - 1.4 mg/dL [facility] Sodium 138 132 - 148 mmol/L [facility] Potassium 4.5 3.5 - 5.0 mmol/L [facility] Chloride 101 98 - 110 mmol/L [facility] CO2 23(A) 24 - 32 mmol/L [facility] Anion Gap 14 0 - 15 mmol/L [facility] ALT 12 0 - 45 U/L [facility] Blood specimen (specimen) BLOOD SPECIMEN / Unknown 05/31/2002 4:58 PM EST [facility] Final Result [facility] [address] [place] [address] from Last 3 Months or Most Recently Relevant to Health Maintenance Insurance [facility] Member Subscriber Plan / Payer (Ef fective 2004-Present) Name:Tomy Weaver Relation to Subscriber:Self Name:Tomy Weaver Payer ID:Not on file Group ID:Not on file [place] Address: [address] [id number] MEDICARE
--- OUTSIDE RECORDS SUMMARY | 2025-03-27 13:09 | XMS_ITS | Clinical Summary ---
Author Organization [facility] Address [address] [place] [address] Care Team Providers Care Heel Sander Rubber Name Role Phone Panchito Diallo MD Primary Care Provider [phone] Mac Turner MD Unavailable [phone] Joseluis aMlone DO Unavailable [phone] Allergies Active Allergy Reactions Criticality Noted Date Comments Atorvastatin Nausea Only,Rash Low 11/10/2016 Other Reaction(s): Myalgia, Other, Other: See Comments, Unknown Severe muscle aches Penicillins Anaphylaxis,Rash,Hailee rtn ess of breath,Swelling High 08/11/1999 Other Reaction(s): Other (See Comments), Unknown respiratory arrest ARREST respiratory arrest BABY respiratory arrest ARREST respiratory arrest BABY ARREST respiratory arrest BABY respiratory arrest respiratory arrest ARREST respiratory arrest BABY Medications aspirin 81 MG EC tablet Take 81 mg by mouth 12/06/2023 Active buPROPion XL (Wellbutrin XL) 150 MG 24 hr tablet Take 150 mg by mouth in the morning and 150 mg in the evening. 01/13/2024 Active budesonide EC (Entocort EC) 3 MG 24 hr capsule Take 9 mg by mouth in the morning. Take before meals. 05/17/2024 Active cholecalciferol (Vitamin D3) 1.25 MG (89039 UT) tablet Take 50,000 Units by mouth 05/17/2024 Active clopidogrel (Plavix) 75 MG tablet Take 75 mg by mouth in the morning. 01/13/2024 Active dicyclomine (Bentyl) 20 MG tablet Take 20 mg by mouth Active estradiol (Estrace) 2 MG tablet Take 2 mg by mouth at bedtime 12/07/2023 Active HYDROcodone-bert taminophen ([place]) 5-325 MG tablet Take 1 tablet by mouth every 6 (six) hours if needed 07/19/2024 Active hydrOXYzine HCl (Atarax) 25 MG tablet Take 1 tablet by mouth every 6 (six) hours if needed 02/04/2024 Active ibuprofen 800 MG tablet Take 800 mg by mouth 2 (two) times a day as needed 08/07/2024 Active NovoLOG 100 UNIT/ML solution Use as directed with insulin pump. Max daily dose 90 units. 12/01/2023 Active lamoTRIgine (LaMICtal) 150 MG tablet Take 150 mg by mouth in the morning. 06/27/2024 Active levothyroxine (Synthroid, Levoxyl) 150 MCG tablet Take 1 tablet by mouth Daily 02/28/2024 Active progesterone 100 MG capsule Take 100 mg by mouth at bedtime 01/03/2024 Active propranolol LA (Inderal LA) 80 MG 24 hr capsule Take 1 capsule by mouth Daily 06/27/2024 Active rosuvastatin (Crestor) 5 MG tablet Take 5 mg by mouth in the morning. 01/18/2024 Active sildenafil (Revatio) 20 MG tablet TAKE 1 TABLET BY MOUTH IN THE MORNING AND IN THE EVENING 07/10/2024 Active ergocalciferol (Vitamin D2) 1.25 MG (85161 UT) capsule 11/01/2024 Active Resolved Problems Problem Noted Date Diagnosed Date Resolved Date Abnormal CBC 10/29/2024 10/29/2024 Abnormal kidney function 10/29/2024 B12 deficiency 10/29/2024 10/29/2024 Back pain 10/29/2024 10/29/2024 Chronic hoarseness 10/29/2024 Dehydration 10/29/2024 10/29/2024 Former smoker 10/29/2024 10/29/2024 History of colon polyps 10/29/202410/02 History of recent fall 10/29/202410/29 Heart disease [...] 10/29/2024 Emphysema/COPD 03/28/2024 10/29/2024 Hyperlipidemia 03/28/2024 10/29/2024 residential current use of insulin 03/28/2024 10/29/2024 Overview [...] thyroid 08/02/1999 10/29/2024 Overview (10/29/2024): Thyroid cyst Encounters Date Type Department Care Team Description 02/23/2025 Clinisync Result Encounter [facility] Unsolicited Cruzito Phelps MD from Last 3 Months Social History Tobacco Use Types Packs/Day Years Used Date Smoking Tobacco: Every Day Cigarettes Smokeless Tobacco: Never Tobacco Cessation:Ready to Q uit: Not Asked; Counseling Given: Not Answered Alcohol Use Standard Drinks/Week Comments Not Currently 0 (1 standard drink = 0.6 oz pur e alcohol) Comments Unknown Sex and Gender Information Value Date Recorded Sex Assigned at Not on file Legal Sex Female 7:17 PM EDT Gender Identity Not on file Sexual Orientation Not on file Last Filed Vital Signs Vital Sign Reading Time Taken Comments Blood Pressure 146/76 02/12/2021 12:00 PM EDT Pulse - - Temperature - - Respiratory Rate - - Oxygen Saturation - - Inhaled Oxygen Concentration - - Weight 63.5 kg (140 lb) 11/01/2024 1:08 PM EDT Height 157.5 cm (5' 2 ) 11/01/2024 1:08 PM EDT Body Mass Index 25.61 11/01/2024 1:08 PM EDT Plan of Treatment Not on file Procedures Procedure Name Priority Date/Time Associated Diagnosis Comments SEGMENTAL BLOOD PRESSURE 02/23/2025 2:16 PM EDT from Last 3 Months Results * SEGMENTAL BLOOD PRESSURE (02/23/2025 2:16 PM EDT) Anatomical Region Laterality Modality Radiographic Giuliana ging 02/23/2025 2:16 PM EDT Narrative 02/24/2025 8:41 [place] [address] Cardiology Report Signed Patient: CARI HALE MR#: [id number] : 1965 Acct:[id number] Age/Sex: 60 / F ADM Date: 02/23/25 Loc: CARD Attending Dr: Cruzito Phelps M.D. Ordering Physician: Cruzito Phelps M.D. Date of Service: 02/23/25 Procedure(s): CA segmental UE or LE MARLA Accession Number(s): [id number] cc: PANCHITO DIALLO; Cruzito Phelps M.D. [facility] Test Date: 2025-02-23 Pat Name: CARI HALE Department: Room: - Gender: Female Solar Installation Manager: : 1965 Requested By: 1892 Order Number: [id number] Gelacio MD: SUKHJINDER MENDIOLA M.D. Interpretive Statements Summary of the findings: Right leg: JENNIFER= 0.96; TBI= 0.59. Doppler waveforms demonstrate biphasic flow at the posterior tibial and dorsalis pedis arteries. Left leg: JENNIFER= 0.98; TBI= 0.68. Doppler waveforms demonstrate biphasic flow at the posterior tibial and dorsalis pedis arteries. Segmental pressures: Segmental pressures suggest signficant infrapopliteal disease bilaterally. Pulse volume recordings: PVRs at the high thigh and below knee show normal waveforms; at the ankle levels show dampened waveforms. Conclusion: Right and left ankle-brachial indices are borderline bilaterally at rest. Toe-brachial indices are suggestive of PAD. Segmental pressures suggest signficant infrapopliteal disease bilaterally. Pulse volume recordings indicate reduced overall resting arterial flow at the ankle level. The study shows evidence of PAD with borderline reduced overall arterial flow at rest. Electronically Signed On 02-24-2025 8:40:48 EDT by SUKHJINDER MENDIOLA M.D. Dictated By: SUKHJINDER MENDIOLA Signed By: 02/24/25 0841 02/24/25 0841 DD/ 1416 TD/TT: Talent Recruiter: Procedure Note Radiology, Radiologist, MD - 02/24/2025 [place] [address] Cardiology Report Signed Patient: CARI HALE EMR#: [id number] : 1965Acct:[id number] Age/Sex: 60 / FADM Date: 02/23/25 Loc: CARD Attending Dr: Cruzito Phelps M.D. Ordering Physician: Cruzito Phelps M.D. Date of Service: 02/23/25 Procedure(s): CA segmental UE or LE MARLA Accession Number(s): [id number] cc: PANCHITO DIALLO; Cruzito Phelps M.D. 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 Interpretive Statements Summary of the findings: Right leg: JENNIFER= 0.96; TBI= 0.59. Doppler waveforms demonstrate biphasicflow at the posterior tibial and dorsalis pedis arteries. Left leg: JENNIFER= 0.98; TBI= 0.68. Doppler waveforms demonstrate biphasicflow at the posterior tibial and dorsalis pedis arteries. Segmental pressures: Segmental pressures suggest signficant infrapopliteal disease bilaterally. Pulse volume recordings: PVRs at the high thigh and below knee show normal waveforms; at the ankle levels show dampened waveforms. Conclusion: Right and left ankle-brachial indices are borderline bilaterally at rest. Toe-brachial indices are suggestive of PAD. Segmental pressures suggest signficant infrapopliteal disease bilaterally. Pulse volume recordings indicate reduced overall resting arterial flow at the ankle level. The study shows evidence of PAD with borderline reduced overall arterialflow at rest. Electronically Signed On 02-24-2025 8:40:48 EDT by SUKHJINDER MENDIOLA M.D. Dictated By: SUKHJINDER MENDIOLA Signed By:02/24/25 0841 02/24/25 0841 DD/ 1416 TD/TT: Talent Recruiter: us Cruzito Phelps MD IMG XR PROCEDURES Final Resu lt from Last 3 Months Insurance [employer] Care Teams Heel Sander Rubber Relationship Specialty Start Date End Date Panchito Diallo MD [address] [place] [address] PCP - General Dry Man 10/30/24 Mac Turner MD [address] [address] Referring Physician Thoracic Surgery 11/01/24 Joseluis Malone DO [address] [place] [address] Otolaryngology 11/01/24
--- OUTSIDE RECORDS SUMMARY | 2025-03-27 13:09 | XMS_ITS | Encounter Summary ---
Author Organization [employer] Address [id number] [address] [place] [address] Care Team Providers Care Ground Crew Linesman Name Role Phone Frida Valdez APRN-INDUSTRIAL SERVICE TECHNICIAN Primary Care Provider [phone] Encounter Details Date Type Department Care Team (Late st Contact Info) Description 11/16/2024 Orders Only [facility] [address] [place] [phone] Sharda Lobo CMA Social History Tobacco Use [...] on filedocumented in this encounter Care Teams Ground Crew Linesman Relationship Specialty Start Date End Date Frida Valdez APRN-INDUSTRIAL SERVICE TECHNICIAN [address] [place] [address] PCP - General Nurse Practitioner 02/14/24 documented as of this encounter
--- OUTSIDE RECORDS SUMMARY | 2025-03-27 13:09 | XMS_ITS | Encounter Summary ---
Author Organization [facility] Address [address] [place] [address] Phone Care Team Providers Care Resident Services Director Name Role Phone Panchito Ford DO Primary Care Provider + Encounter Details Date Type Department Care Team (Late st Contact Info) Description 10/25/2024 Scanned Document [facility] [address] [place] [id number] Scanning, Generic Provider Social History Tobacco Use [...] Description 06/07/2025 3:15 PM EST Office Visit [facility] [address] [facility] [address] [place] [address] Ancelmo Ortiz MD [address] [facility] [address] [place] [address] documented as of this encounter Visit Diagnoses Not on filedocumented in this encounter Care Teams Resident Services Director Relationship Specialty Start Date End Date Panchito Ford DO [address] [place] [address] PCP - General Family Medicine 10/26/24 documented as of this encounter
--- OUTSIDE RECORDS SUMMARY | 2025-03-27 13:09 | XMS_ITS | Encounter Summary ---
Author Organization [employer] Address [id number] [address] [place] [address] Care Team Providers Care Product Tester Name Role Phone Frida Valdez FINANCIAL DEVELOPER-RADIOLOGICAL METALLURGIST Primary Care Provider [phone] Encounter Details Date Type Department Care Team (Late st Contact Info) Description 01/31/2024 Orders Only [facility] [address] [place] [address] Cruzito Phelps MD [address], [facility] [address] [place] [address] Social History Tobacco Use Types Packs/Day Years Used Date Smoking Tobacco: Never Assessed Childcare Answer Date Recorded Childcare Unknown 01/09/2019 Employment Answer Date Recorded Employment Unknown 01/09/2019 Hunger Screening Answer Date Recorded Within the past 12 months we worried whether our food would run out before we got money to buy more. Never True 01/13/2024 Within the past 12 months th e food we bought just didn't last and we didn't have money to get more. Never True 01/13/2024 Comments No Sex and Gender Information Value Date Recorded Sex Assigned at Not on file Legal Sex Female 12:36 PM EDT Gender Identity Not on file Sexual Orientation Not on file documented as of this encounter Plan of Treatment Not on file documented as of this encounter Procedures Procedure Name Priority Date/Time Associated Diagnosis Comments VASC ARTERIAL DOPPLER LOWER BILATERAL MULTI LEVEL/PVR Routine 01/28/2024 4:32 PM EDT VASC ARTERIAL DOPPLER LOWER BILATERAL MULTI LEVEL/PVR Routine 01/28/2024 4:30 PM EDT EXTERNAL LAB ORDERS / RESULTS Routine 01/27/2024 2:47 PM EDT documented in this encounter Results * Vas art doppler lwr bilat mult lev/PVR (01/28/2024 4:32 PM EDT) Anatomical Region Laterality Modality Vascular Bilateral Ultrasound Cruzito Phelps MD CV VASCULAR ORDERABLES Final Result * Vas art doppler lwr bilat mult lev/PVR (01/28/2024 4:30 PM EDT) Anatomical Region Laterality Modality Vascular Bilateral Ultrasound Cruzito Phelps MD CV VASCULAR ORDERABLES Final Result * External Lab Orders / Results (01/27/2024 2:47 PM EDT) Cruzito Phelps MD LAB ORDERABLES Final Result MANUALLY TRANSCRIBED RESULTS documented in this encounter Visit Diagnoses Not on filedocumented in this encounter Care Teams Product Tester Relationship Specialty Start Date End Date Frida Valdez, FINANCIAL DEVELOPER-RADIOLOGICAL METALLURGIST [address] [place] [address] PCP - General Nurse Practitioner 02/14/24 documented as of this encounter
--- OUTSIDE RECORDS SUMMARY | 2025-03-27 13:09 | XMS_ITS | Encounter Summary ---
Author Organization [employer] Address [id number] [address] [place] [address] Care Team Providers Care Grant Manager Name Role Phone Frida Valdez Primary Care Provider [phone] Encounter Details Date Type Department Care Team (Late st Contact Info) Description 02/10/2024 Orders Only [facility] [address] [place] [address] Sharda Lobo CMA PAD (peripheral artery disease) ([facility] Social History Tobacco Use Types Packs/Day Years [...] as of this encounter Visit Diagnoses Diagnosis PAD (peripheral artery disease) Unspecified peripheral vascular disease documented in this encounter Care Teams Grant Manager Relationship Specialty Start Date End Date Frida Valedz APRN-CNP [address] [place] [address] PCP - General Nurse Practitioner 02/14/24 documented as of this encounter
--- OUTSIDE RECORDS SUMMARY | 2025-03-27 13:09 | XMS_ITS | Encounter Summary ---
Author Organization [employer] Address [id number] [address] [place] [address] Care Team Providers Care Health Education Coordinator Name Role Phone Frida Valdez SERVICE TECHNICIAN-CHIEF VENDOR QUALITY Primary Care Provider [phone] Encounter Details Date Type Department Care Team (Late st Contact Info) Description 11/30/2024 Telephone [facility] [address] [place] [address] Cruzito Phelps MD [address], [facility] [address] [place] [address] Social History Tobacco Use Types Packs/Day Years [...] * Telephone Encounter - Edwige Harkins - 11/30/2024 2:14 PM EDT Patient is calling because she canceled her follow up to go over testing and is not having surgery 12/08 but wanted the office to be aware that she will be calling back to reschedule once she is feeling better after surgery. documented in this encounter Plan of Treatment Not on file documented as of this encounter Visit Diagnoses Not on filedocumented in this encounter Care Teams Health Education Coordinator Relationship Specialty Start Date End Date Frida Valdez APRN-CHIEF VENDOR QUALITY [address] [place] [address] PCP - General Nurse Practitioner 02/14/24 documented as of this encounter
--- OUTSIDE RECORDS SUMMARY | 2025-03-27 13:09 | XMS_ITS | Encounter Summary ---
Author Organization [employer] Address [id number] [address] [place] [address] Care Team Providers Care Reroller Hand Name Role Phone Frida Valdez DISPENSER OPERATOR-ROOF PAINTER Primary Care Provider [phone] Encounter Details Date Type Department Care Team (Late st Contact Info) Description 01/26/2024 Orders Only [facility] [address] [place] [address] Cruzito Phelps MD [address], [facility] [address] [place] [address] Social History Tobacco Use Types Packs/Day Years [...] Procedure Name Priority Date/Time Associated Diagnosis Comments VASCULAR CHECKS Routine 12/29/2023 3:13 PM EDT documented in this encounter Results * Vascular checks (12/29/2023 3:13 PM EDT) us Cruzito Phelps MD NURSING ASSESSMENTS Final Res ult MANUALLY TRANSCRIBED RESULTS documented in this encounter Visit Diagnoses Not on filedocumented in this encounter Care Teams Reroller Hand Relationship Specialty Start Date End Date Frida Valdez, DISPENSER OPERATOR-ROOF PAINTER [address] [place] [address] PCP - General Nurse Practitioner 02/14/24 documented as of this encounter
--- OUTSIDE RECORDS SUMMARY | 2025-03-27 13:09 | XMS_ITS | Encounter Summary ---
Author Organization [employer] Address [id number] [address] [place] [address] Care Team Providers Care Knotter Name Role Phone Frida Valdez DIRECTOR OF MEDIA-MOBILE LAB TECHNICIAN Primary Care Provider [phone] Encounter Details Date Type Department Care Team (Late st Contact Info) Description 09/14/2024 Telephone [facility] [address] [place] [address] Cruzito Phelps MD [address], [facility] [address] [place] [address] Social History Tobacco Use Types Packs/Day Years [...] encounter Miscellaneous Notes * Telephone Encounter - Iliana Torin - 09/14/2024 2:38 PM EST Patient is getting a Bx done and she wanted to no if anything was faxed over to when to stop her Plavix 5 days before her Surgery she can be reached at [phone] * Telephone Encounter - Sharda Lobo CMA - 09/14/2024 2:38 PM EST I called patient , I just received Clearance paperwork 09/19/2024 . Let her know I am with Dr. Corbettorrow and will get it signed and faxed over documented in this encounter Plan of Treatment Not on file documented as of this encounter Visit Diagnoses Not on filedocumented in this encounter Care Teams Knotter Relationship Specialty Start Date End Date Frida Valdez, DIRECTOR OF MEDIA-MOBILE LAB TECHNICIAN [address] [place] [address] PCP - General Nurse Practitioner 02/14/24 documented as of this encounter
--- OUTSIDE RECORDS SUMMARY | 2025-03-27 13:09 | XMS_ITS | Encounter Summary ---
Author Organization [facility] Address [address] [place] [address] Phone Care Team Providers Care Pyridine Operator Name Role Phone Panchito Ford DO Primary Care Provider + Encounter Details Date Type Department Care Team (Late st Contact Info) Description 10/30/2024 Scanned Document [facility] [address] [place] [id number] Scanning, Generic Provider Social History Tobacco Use [...] Description 06/07/2025 3:15 PM EST Office Visit [facility] [address] [facility] [address] [place] [address] Ancelmo Ortiz MD [address] [facility] [address] [place], [place] [id number] documented as of this encounter Procedures Procedure Name Priority Date/Time Associated Diagnosis Comments OUTSIDE LAB SCAN 10/30/2024 OUTSIDE LAB SCAN 10/30/2024 OUTSIDE LAB SCAN 10/30/2024 documented in this encounter Results * OUTSIDE LAB SCAN (10/30/2024) Narrative 10/30/2024 Ordered by an unspecified provider. us Generic Provider Scanning OUTSIDE SCAN Final Result * OUTSIDE LAB SCAN (10/30/2024) Narrative 10/30/2024 Ordered by an unspecified provider. us Generic Provider Scanning OUTSIDE SCAN Final Result * OUTSIDE LAB SCAN (10/30/2024) Narrative 10/30/2024 Ordered by an unspecified provider. us Generic Provider Scanning OUTSIDE SCAN Final Result documented in this encounter Visit Diagnoses Not on filedocumented in this encounter Care Teams Pyridine Operator Relationship Specialty Start Date End Date Panchito Ford DO [address] [place] [address] PCP - General Family Medicine 10/26/24 documented as of this encounter
--- OUTSIDE RECORDS SUMMARY | 2025-03-27 13:09 | XMS_ITS | Encounter Summary ---
Author Organization [facility] Address [address], [address] [place] [address] Care Team Providers Care It Engineer Name Role Phone Panchito Ford DO Primary Care Provider [phone] Reason for Visit * Reason Onset Date Comments Medication Refill 03/21/2025 Encounter Details Date Type Department Care Team (Late st Contact Info) Description 03/21/2025 Refill [facility] [address] [place] [address] Panchito Ford DO [address] [place] [address] Medication Refill Social History Tobacco Use Types Packs/Day Years Used Date Smoking Tobacco: Every Day Cigarettes 1 31.6 Started: 1993 Smokeless Tobacco: Never Alcohol Use Standard Drinks/Week Comments Yes 0 (1 standard drink = 0.6 oz pur e alcohol) [facility] Utilities Answer Date Recorded In the past 12 months has [facility] [employer], oil, or water [employer] Is threatened to shut off services in your [...] time in the past 12 m [facility], were you homeless or living in a prison (including now)? No 11/03/2024 Food Insecurity Answer [...] Description 04/11/2025 4:00 PM EDT Office Visit [facility] [address] [place] [address] Panchito Ford DO [address] [place] [address] 3 mom f/u documented as of this encounter Visit Diagnoses Diagnosis Type 1 diabetes mellitus without complication (HCC)- Primary Type I (juvenile type) diabetes mellitus without mention of complication, not stated as uncontrolled documented in this encounter Additional Health Concerns Assessment Noted Time A fall risk assessment has been complete d for the patient 11/03/2024 1:17 PM EDT documented as of this encounter Care Teams It Engineer Relationship Specialty [place] [address] [place] [id number] PCP - General 11/15/12 documented as of this encounter
[2025-03-27 13:27] LABS: Hemoglobin 12.4 g/dL (12.0-16.0)
--- OUTSIDE RECORDS SUMMARY | 2025-03-27 13:30 | XMS_ITS | CCD ---
Author Organization [facility] CliniSyor Care Team Providers Care Bank Credit Card Collection Clerk Name Role Phone REQUEST, DR NONE LISTED Primary Care UnavailSHAIKH Leydi Mirza Admitting Unavailable SHAIKH Leydi SHELBY Attending Unavailable DONNIE, DR JESSE Olmos Consulting Unavailable CHRISTIANA, DR BELLAMY Consulting Unavailable SHAIKH Leydi SHELBY Consulting Unavailable SILVA ALMANZAR Consulting Unavailable Geovanny Schaffer Unavailable Renate DIALLO Primary Care Physician [phone] DO Renate Diallo Primary Care Provider MD Geovanny Schaffer Attending Provider [phone] Oren Jones Unavailable Flora Escalera Primary Care Physician [phone] Flora Escalera Attending Unavailable Flora Escalera Attending Unavailable Flora Esclaera Attending Unavailable José MiguelFlora cedillo Attending Unavailable José MiguelFlora cedillo Attending Unavailable Renate DIALLO Attending Unavailable Han Olivera H Attending Unavailable Lee Martinez Attending Unavailable Jesse Carr Consulting Unavailable Lee Martinez Admitting Unavailable Jesse Carr Consulting Unavailable Jesse Carr Consulting Unavailable Jesse Carr Consulting Unavailable Jesse Carr Consulting Unavailable Jesse Carr Consulting Unavailable Jesse Carr Consulting Unavailable Jesse Carr Consulting Unavailable Jesse Carr Consulting Unavailable MD Jesse Carr Consulting Unavailable Oren Mir Consulting UnavailMD Oren Steward Consulting UnaOren Woodward Consulting UnavailLee Mcgraw Attending Unavailable MD Oren Mir Consulting UnaLee Curiel Admitting Unavailable Jesse Carr Unavailable José Miguel, DAY WORKER Flora L Admitting Unavailable Logan CRUZ, Renate Bianca Primary Care Provider Unavailable Primary Care Provider Unavailabl e José Miguel RAPID OUTSOLE STITCHER-PARTY PLAN SALES AGENT, Flora Diaz Primary Care Provider Unavailable Primary Care Provider Unavailyakelin e RENATE DIALLO Referring Unavailable LOGAN, RENATE S Primary Care Unavailable COLE DUMONT Referring Unavailable LOGAN, RENATE S Primary Care Unavailable COLE DUMONT Referring Unavailable LOGAN, RENATE Primary Care Unavailable DEBI DAVE Referring Unavailable LOGAN, RENATE Valenzuela Primary Care Unavailable Logan CRUZ, Renate Cachorro Primary Care Provider Logan HANKS, Renate Primary Care Provider [phone] Mac Turner MD Unavailable Lissa Malone DO Unavailable [phone] LISSA MALONE Attending Unavailable RENATE DIALLO Referring Unavailable LISSA MALONE Referring Unavailable LISSA MALONE Attending Unavailable MAC TURNER Referring Unavailable José Miguel RAPID OUTSOLE STITCHER-PARTY PLAN SALES AGENT, Flora Diaz Primary Care Provider Logan CRUZ Renate S Primary Care Provider Renate Diallo DO Attending Provider [phone] Katarzyna Castro MD Other Provider Katarzyna Castro MD Attending Provider [phone] Janeth Plascencia DO Referring Provider [phone] KATARZYNA CASTRO Attending Unavailable RENATE DIALLO CACHORRO [facility] UnavailKATARZYNA Enriquez Referring Unavailable KATARZYNA CASTRO Attending Unavailable KATARZYNA CATSRO Referring Unavailable RENATE DIALLO CACHORRO [facility] UnavailMac Bertrand MD Attending Provider Mac Turner MD Admit Provider Lance WHITE, Lety Other Provider Unavailable Naveen RN, Марина Other Provider Unavailable Kenyatta RN, Mary Other Provider Unavailable Sonali RNRenetta Other Provider Unavailable Prasanth RNArleen Other Provider Unavailable Damaso WHITE, Rosanna Other Provider Unavailable Ant Han MD Other Provider Bertha DO, Nolberto Other Provider Matthew Hope MD Other Provider Scot Centeno DO Other Provider Reji HANKS, Hugh Other Provider Bri Maravilla MD Other Provider Ag Hoang DO Other Provider Gunner HANKS, Alcon Other Provider Unavailable Sophy Coughlin APRN Other Provider Donal HANKS, Jackie Other Provider Marcell Andrade MD Other Provider Rekha Pagan MD Other Provider Unavailable Georgie Burden MD Other Provider Ag More DO Other Provider [phone] Jessica Mckay MD Other Provider Joe Hutchison MD Other Provider Monica LIGHT INDUSTRIAL-C, Kiarra Silverio Other Provider Olivier Knapp APRN Other Provider Unavailable Sean Hart MD Other Provider Chun Julio MD Other Provider Marty Smith MD Other Provider Tevin Call MD Other Provider Unavailable Olu Smith MD Other Provider Sherrell Tejeda DO Other Provider Wolf Zambrano DO Other Provider Aida Schmidt APRN Other Provider Luis Beaver DO Other Provider [phone] Geena HANKS, Mikey Avila Other Provider [phone] Eli Richard APRN Other Provider [phone] Eleanor PICHARDO, Arti Selby Other Provider Marilyn HANKS, Kusum Other Provider Unavailable Nicole HANKS, Dulce Maria Silverio Other Provider Hsu DO, Cong Boyer Other Provider Sanjay CRUZ, Shruthi Other Provider Luis HANKS, Maicol Arreguin Other Provider Raisa Back MD Other Provider Kimberly Samson APRN Other Provider Unavailable Dru HANKS, Daly Other Provider Stevie HANKS, Issac Other Provider Ozzy Perez MD Other Provider [phone] Hortensia HANKS, Alcon Valenzuela Other Provider Rashel HANKS, Shilo Other Provider Fallon Kim APRN Other Provider Edward Garcia APRN Other Provider Bev WHITE, Yovana Other Provider Unavailable Yenni HANKS, Mike Other Provider Renate Diallo MD Primary Care Provider [phone] Mac Turner MD Unavailable Renate Diallo DO Primary Care Provider Oren Jones APRN Attending Provider Genie Bass MD Attending Provider [phone] Mac Turner MD Referring Provider Noble Tipton MD Attending Provider Renate Diallo Primary Care Unavailable Mac Turner Referring Unavailable Genie Bass Attending Unavailyakelin e Genie Bass Admitting Unavailabl e Mac Turner Attending Unavailable Renate Diallo Primary Care Unavailable Mac Turner Admitting Unavailable Lety Lucas Consulting Unavailable Марина Hodge Consulting Unavailable Mary You Consulting Unavailable Renetta Lyon Consulting Unavailable Arleen Rader Consulting Unavailable Rosanna Petit Consulting Unavailable Ant Han Consulting Unavailable Nolberto Stone Consulting Unavailable Matthew Hope Consulting Unavailable Scot Centeno Consulting UnavailHguh Fletcher Consulting Unavailable Bri Maravilla Consulting Unavailable Ag Hoang Consulting Unavailable Alcon Martino Consulting Unavailable Sophy Coughlin Consulting UnavailJackei Porter Consulting Unavailable Marcell Andrade Consulting Unavailable Rekha Pagan Consulting Unavailable Georgie Burden Consulting Unavailable Ag More Consulting Unavailable Jessica Mckay Consulting Unavailable Joe Hutchison Consulting Unavailable Kiarra Anderson Consulting Unavailable Olivier Knapp Consulting Unavailable Sean Hart Consulting UnavailChun Burden Consulting Unavailable Maryt Smith Consulting Unavailable Tevin Call Consulting Unavailable Olu Smith Consulting Unavailable Sherrell Tejeda Consulting Unavailable Wolf Zambrano Consulting Unavailable Aida Schmidt Consulting Unavailable Luis Beaver Consulting Unavailable Daromar Obayritchie Avila Consulting Unavailable Eli Richard Consulting Unavailable Arti East Consulting Unavailable Kusum Sanders Consulting Unavailable Dulce Maria Rivera Consulting Unavailable Cong Hsu Consulting Unavailable Shruthi Grace Consulting Unavailable Maicol Smith Consulting Unavailable Raisa Back Consulting Unava luable Kimberly Samson Consulting Unavailable Daly Gonsales Consulting Unavailable Issac Hubbard Consulting Unavailable Ozzy Perez Consulting Unavailable Alcon Bazan Consulting Unavailable Shilo Kiser Consulting Unavailable Fallon Kim Consulting Unavailable Bolzaluis angel-Stephan Nicolettwes Consulting Unavaila Yovana Paez Consulting Unavailable Shanika Hyman Consulting Unavailable Renate Diallo Primary Care Unavailable Janeth Plascencia Referring Unavailable Katarzyna Castro Attending Unavailable Katarzyna Castro Admitting Unavailable Renate Diallo Primary Care Unavailable Renate Diallo Attending Unavailable Renate Diallo Admitting Unavailable Katarzyna Castro Consulting Unavailable Renate Diallo Primary Care Unavailable Mac Turner Admitting Unavailable Mac Turner Attending Unavailable Unavailable Unavailable Unavailable Allergies Allergy Classification Reported Allergen(s) Allergy Type Date of Onset Reaction(s) Facility (7 sources) Dextroamphetamine ; Translations: [Lipitor] Drug Allergy 08-11-19 [facility] Repository (20 sources) Penicillins; Translations: [penicillins] Drug allergy (disorder) 08-11-19 Other (See Comments) [facility] Repository (20 sources) atorvastatin; Translations: [atorvastatin] Drug Allergy 11-11-19 Rash, Other (See Comments), Nausea, Nausea Only, Myalgia, Other, Unknown [facility] Comment on above: muscle pain (20 sources) Penicillin G Drug Allergy 01-13-20 Rash, Shortness Of Breath [facility] Other (15 sources) Acetaminophen / HYDROcodone; Translations: [acetaminophen-hy drocodone] Drug Allergy 02-10-20 [facility] (20 sources) Pravastatin; Translations: [pravastatin] Drug Allergy 02-10-20 Other (See Comments), Myalgia [facility] (10 sources) atorvastatin Drug Allergy 11-11-19 Nausea Only, Other (See Comments), Rash [facility] (11 sources) Penicillins Propensity to adverse reactions to drug 05-31-20 Other (See Comments), Rash, Shortness Of Breath, Swelling [facility] (4 sources) Penicillins Drug Allergy 08-11-19 Anaphylaxis, Rash, Shortness of breath, Swelling, Unknown, Other (See Comments) [facility] Work Phone: (6 sources) Penicillins Drug Allergy 08-11-19 Anaphylaxis, Rash, Shortness of breath, Swelling [facility] (1 source) atorvastatin Drug Allergy 03-15-20 [facility] Repository (1 source) Penicillins Drug allergy (disorder) 03-15-20 [facility] Repository Medications Current Medications Medication Drug Class(es) Dates Sig (Normalized) Sig (Original) acetaminophen 325 mg / HYDROcodone bitartrate 5 mg oral tablet (9 sources) Opioid Agonist Start: 07-19-2024 take 1 tablet by mouth every six hours as needed HYDROcodone-acetam inophen (Jordan) 5-325 MG tablet Take 1 tablet by mouth every 6 (six) hours if needed 07/19/2024 Active amitriptyline hydrochloride 10 mg oral tablet (2 sources) Tricyclic Antidepressant Start: 12-09-2020 take 1 tablet by mouth once daily at bedtime amitriptyline 10 mg Tab 10 mg = 1 tab(s), Oral, Once a day (at bedtime), # 90 tab(s), Refills(s) 3, Pharmacy: [facility]/pharmacy #[id number], 160, cm, 12/09/20 13:39:00 EDT, Height/Length Dosing, 62.2, kg, 12/09/20 13:39:00 EDT, Weight Dosing Start Date: 12/09/20 Status: Ordered aspirin 81 mg delayed release oral tablet (20 sources) Platelet Aggregation Inhibitor, Nonsteroidal Anti-inflammatory Drug Start: 12-06-2023 End: 03-29-2024 take 1 tablet by mouth once daily Aspirin Active balsalazide disodium 750 mg oral capsule (4 sources) Aminosalicylate take 2 capsules by mouth twice daily Balsalazide Disodium 750 MG TAKE 2 CAPSULES BY MOUTH TWICE A DAY for 30 Active Blood Glucose Monitoring Suppl (ONE TOUCH ULTRA 2) w/Device KIT (3 sources) Start: Blood Glucose Monitoring Suppl (ONE TOUCH ULTRA 2) w/Device KIT 1 kit by Does not apply route daily 1 kit 09/19/2024 Active 24 hr buPROPion hydrochloride 150 mg extended release oral tablet (20 sources) Aminoketone Start: take 1 tablet by mouth twice daily Start: 03-21-2024 take 1 tablet by luke th once daily buPROPion 150 mg/24 hours XL Tab 150 mg = 1 tab(s), Oral, Daily, Refills(s) 0 Start Date: 03/21/24 Status: Ordered Start: 01-13-2024 End: 01-13-2024 take 1 tablet by mouth every twenty-four hours in the morning buPROPion XL (Wellbutrin XL) 150 MG 24 hr tablet Take 150 mg by mouth in the morning and 150 mg in the evening. 01/13/2024 Active Start: 01-13-2024 take 1 tablet by luke th at bedtime buPROPion (WELLBUTRIN XL) 150 MG extended release tablet Take 1 tablet by mouth in the morning and at bedtime 180 tablet 3 05/17/2024 Active carbidopa 10 mg / levodopa 100 mg oral tablet (2 sources) Aromatic Amino Acid Decarboxylation Inhibitor, Aromatic Amino Acid Start: 09-24-2020 Sinemet 10 mg-100 mg Tab 1 tab(s), Oral, BID, 60 tab(s), Refill(s) 5, [facility]/pharmacy #[id number], 160, cm, 09/05/20 14:51:00 EST, Height/Length Dosing, 60.4, kg, 09/05/20 14:51:00 EST, Weight Dosing Start Date: 09/24/20 Status: Ordered cholecalciferol 1.25 mg oral tablet (18 sources) Vitamin D Start: 05-17-2024 cholecalcifero l (Vitamin D3) 1.25 MG (03900 UT) tablet Take 50,000 Units by mouth 05/17/2024 Active Start: 05-17-2024 take 1 tablet by luke th every week cholecalciferol (Vitamin D3) 1,250 mcg (50,000 unit) tablet Take 1 tablet (50,000 Units) by mouth 1 (one) time per week. 05/17/2024 Active clopidogrel 75 mg oral tablet (20 sources) [id number] Platelet Inhibitor Start: 12-05-2024 take 1 tablet by mouth once daily Start: 01-13-2024 End: 01-13-2024 take 1 tablet by mouth once daily clopidogrel (Plavix) 75 mg tablet Take 1 tablet (75 mg) by mouth once daily. 05/17/2024 Active colestipol hydrochloride 1000 mg oral tablet (2 sources) Bile Acid Sequestrant Start: 10-26-2022 take 2 tablets by mouth every twenty-four hours Colestipol HCl 1 GM 2 tablets Orally Once a day for 30 days Sep, Active diazePAM 5 mg oral tablet (2 sources) Benzodiazepine Start: 03-15-2025 dicyclomine hydrochloride 20 mg oral tablet (16 sources) Anticholinergic dicyclomine (Bentyl) 20 MG tablet Take 20 mg by mouth Active ergocalciferol 1.25 mg oral capsule (20 sources) Provitamin D2 Compound Start: 11-01-2024 ergocalciferol (Vitamin D2) 1.25 MG (15796 UT) capsule 11/01/2024 Active Start: 12-09-2023 take 1 capsule by [facility] every week ergocalciferol (DRISDOL) 1,250 mcg (50,000 unit) capsule Take 1 capsule (50,000 Units total) by mouth once a week. 12/09/2023 Active Start: 10-13-2022 take 1 capsule by [facility] every week estradiol 2 mg oral tablet (20 sources) Estrogen Start: 01-09-2022 End: 02-14-2024 take 1 tablet by mouth once daily in the evening Fish Oils (4 sources) gabapentin 300 mg oral capsule (11 sources) Anti-epileptic Agent Start: 12-08-2021 take 1 capsule by mouth three times daily gabapentin 300 mg Cap 300 mg = 1 cap(s), Oral, TID, M54.106, # 270 cap(s), Refills(s) 1, Pharmacy: [facility]/pharmacy #[id number], 158, cm, 09/02/21 14:45:00 EST, Height/Length Dosing, 60, kg, 09/02/21 14:45:00 EST, Weight Dosing Start Date: 12/08/21 Status: Ordered hydrOXYzine hydrochloride 25 mg oral tablet (20 sources) Antihistamine Start: 12-05-2024 take 1 tablet by luke four times daily as needed for anxiety Start: 02-04-2024 take 1 tablet by luke every six hours as needed hydrOXYzine HCl (Atarax) 25 MG tablet Take 1 tablet by mouth every 6 (six) hours if needed 02/04/2024 Active Start: 12-31-2022 take 1 tablet by luke four times daily as needed for anxiety hydrOXYzine hydrochloride 25 mg Tab 25 mg = 1 tab(s), Oral, QID, PRN for anxiety, # 40 tab(s), Refills(s) 3, Pharmacy: [facility]/pharmacy #[id number], 158, cm, 05/25/23 15:27:00 EDT, Height/Length [...] day(s), # 120 tab(s), Refills(s) 0, Pharmacy: [facility]/pharmacy #[id number], 158, tony, 12/31/22 15:13:00 EDT, Height/Length Dosing, 57.9, kg, [...] days Active ibuprofen 800 mg oral tablet (12 sources) Nonsteroidal Anti-inflammatory Drug Start: 08-07-2024 take 1 tablet by mouth twice daily as needed ibuprofen 800 MG tablet Take 800 mg by mouth 2 (two) times a day as needed 08/07/2024 Active Insulin Aspart U-100 (Novolog U-100 Insulin Aspart) 100 unit/mL solution (5 sources) Start: 10-13-2022 inject 19 [IU] by subcutaneous injection once daily Insulin Aspart U-100 (Novolog U-100 Insulin Aspart) 100 unit/mL solution Active 19 UNIT SUBCUT Daily October 13, 2022 12:00am sliding scale insulin aspart, human 100 unt/ml injectable solution (20 sources) Insulin Analog Start: 12-01-2023 NovoLOG 100 units/mL injectable solution See Instructions, 35 units daily per pump. Dx E11.01, # 10 mL, Refills(s) 5, Pharmacy: [facility]/pharmacy #[id number], 158, tony, 05/25/23 15:27:00 EDT, Height/Length Dosing, 57.3, kg, 05/25/23 15:27:00 EDT, Weight Dosing Start Date: 12/01/23 Status: Ordered Start: 02-08-2023 NovoLOG 100 un its/mL injectable solution See Instructions, 35 units daily per pump. Dx E11.01, # 10 mL, Refills(s) 5, [id number], cm, 12/31/22 15:13:00 EDT, Height/Length Dosing, 57.9, kg, 12/31/22 15:13:00 EDT, Weight Dosing Start Date: 02/08/23 Status: Ordered Start: 10-13-2022 inject 19 [IU] by hartman bcutaneous injection once daily Start: 07-23-2022 NovoLOG 100 un its/mL injectable solution See Instructions, 35 units daily per pump. Dx E11.01, # 10 mL, Refills(s) 5, Pharmacy: [facility]/pharmacy #[id number], 158, cm, 06/11/22 15:39:00 EST, Height/Length Dosing, 61.4, kg, 06/11/22 15:39:00 EST, Weight Dosing Start Date: 07/23/22 Status: Ordered Start: 10-24-2021 NovoLOG 100 un its/mL injectable solution See Instructions, 35 units daily per pump. Dx E11.01, # 10 mL, Refills(s) 5, Pharmacy: [facility]/pharmacy #[id number], 158, cm, 09/02/21 14:45:00 EST, Height/Length Dosing, 60, kg, 09/02/21 14:45:00 EST, Weight Dosing Start Date: 10/24/21 Status: Ordered insulin aspart S UBCUTANEOUS PUMP (NovoLOG) 100 UNIT/ML patient supplied pump Inject 19 Units under the skin continuously. Patient to self-manage pump according to the following parameters: 19 units in 12 hours and then adds sliding scale with meals Active NovoLOG Active lamoTRIgine 100 mg oral tablet (20 sources) Mood Stabilizer, Anti-epileptic Agent Start: 12-05-2024 take 1 tablet by mouth once daily in the morning Start: 06-27-2024 take 1 tablet by luke th in the morning lamoTRIgine (LaMICtal) 150 MG tablet Take 150 mg by mouth in the morning. 06/27/2024 Active Start: 03-21-2024 take 1 tablet by luke th once daily lamotrigine 100 mg Tab 100 mg = 1 tab(s), Oral, Daily, Refills(s) 0 Start Date: 03/21/24 Status: Ordered Start: 02-01-2024 take 1 tablet by luke th once daily, then take 2 tablets by mouth once daily, then take 3 tablets by mouth once daily, then take 4 tablets by mouth once daily lamoTRIgine (LaMICtal) 25 mg tablet TAKE 1 TAB BY MOUTH DAILY X2 WKS, 2 TABS DAILY X2 WKS, 3 TABS DAILY X2 WKS, 4 TABS DAILY X2 WKS 02/01/2024 Active Start: 05-12-2022 take 3 tablets by mo [facility] once daily lamotrigine 50 mg oral tablet, extended release See Instructions, 3 tab(s) Oral Daily x 2 week, then 2 tabs x 2 week then 1 tab x 2 week. Then will start the 25 mg, # 74 tab(s), Refills(s) 0, [id number], cm, 05/12/22 15:40:00 EDT, Height/Length Dosing, 59.8, kg, 05/12/22 15:... Start Date: 05/12/22 Status: Ordered Start: 02-05-2022 take 1 tablet by luke once daily lamotrigine 200 mg Tab 200 mg = 1 tab(s), Oral, Daily, # 90 tab(s), Refills(s) 1, [id number] 158, cm, 09/02/21 14:45:00 EST, Height/Length Dosing, 60, kg, 09/02/21 14:45:00 EST, Weight Dosing Start Date: 02/05/22 Status: Ordered lamoTRIgine Acti ve levothyroxine sodium 0.15 mg oral tablet (20 sources) l-Thyroxine Start: 02-28-2024 take 1 tablet by mouth once daily levothyroxine 150 mcg (0.15 mg) Tab See Instructions, TAKE 1 TABLET BY MOUTH EVERY DAY, # 90 tab(s), Refills(s) 1, Pharmacy: [id number], 158, cm, 05/25/23 15:27:00 EDT, Height/Length Dosing, 57.3, kg, 05/25/23 15:27:00 EDT, Weight Dosing Start Date: 02/28/24 Status: Ordered Start: 02-28-2024 take 1 tablet by luke th once daily levothyroxine (Synthroid, Levoxyl) 150 MCG tablet Take 1 tablet by mouth Daily 02/28/2024 Active Start: 12-06-2023 Start: 12-06-2023 take 1 capsule by mo [facility] once daily Levothyroxine 100 mcg capsule Active 100 MCG PO Daily December 06, 2023 12:00am Start: 12-06-2023 End: 12-06-2023 take 1 capsule by mouth once daily Levothyroxine 37.5 mcg capsule Discontinued 37.5 MCG PO Daily December 06, 2023 12:00am December 06, 2023 3:15pm Start: 10-13-2022 End: 12-06-2023 take 1 tablet by mouth once daily Levothyroxine 150 mcg tablet Discontinued 150 MCG PO Daily October 13, 2022 12:00am December 06, 2023 3:15pm Start: 08-13-2022 take 1 tablet by luke th once daily Synthroid 150 mcg (0.15 mg) Tab 0.15 mg = 1 tab(s), Oral, Daily, # 90 tab(s), Refills(s) 1, Pharmacy: [facility]/pharmacy #[id number], 158, cm, 06/11/22 15:39:00 EST, Height/Length Dosing, 61.4, kg, 06/11/22 15:39:00 EST, Weight Dosing Start Date: 08/13/22 Status: Ordered Start: 02-05-2022 take 1 tablet by luke th once daily Synthroid 150 mcg (0.15 mg) Tab 0.15 mg = 1 tab(s), Oral, Daily, # 90 tab(s), Refills(s) 1, Pharmacy: [facility]/pharmacy #[id number], 158, cm, 09/02/21 14:45:00 EST, Height/Length Dosing, 60, kg, 09/02/21 14:45:00 EST, Weight Dosing Start Date: 02/05/22 Status: Ordered take 1 tablet by luke in the morning levothyroxine (SYNTHROID, LEVOTHROID) 100 MCG tablet Indications: hypothyroidism Take 1 tablet (100 mcg total) by mouth in the morning. Indications: a condition with low thyroid hormone levels. Active Levothyroxine So dium Active Medtronic Insulin Pump 770G (8 sources) Start: [...] a day for 28 days Sep, Active 24 hr propranolol hydrochloride 80 mg extended release oral capsule (20 sources) beta-Adrenergic Geoffrey Start: 06-27-2024 take 1 capsule by mouth once daily propranolol LA (Inderal LA) 80 MG 24 hr capsule Take 1 capsule by mouth Daily 06/27/2024 Active Start: 05-12-2022 End: 12-05-2024 take 1 tablet by mouth twice daily Propranolol 20 mg tablet Discontinued 20 MG PO Twice daily October 13, 2022 12:00am December 05, 2024 4:39pm rosuvastatin calcium 5 mg oral tablet (20 sources) HMG-CoA Reductase Inhibitor Start: 07-31-2022 End: 03-16-2024 take 1 tablet by mouth once daily in the morning sertraline 50 mg oral tablet (3 sources) Serotonin Reuptake Inhibitor Start: 01-03-2023 take 1 tablet by mouth once daily Zoloft 50 mg Tab 50 mg = 1 tab(s), Oral, Daily, # 90 tab(s), Refills(s) 0, Pharmacy: [facility]/pharmacy #[id number], 158, cm, 12/31/22 15:13:00 EDT, Height/Length Dosing, 57.9, kg, 12/31/22 15:13:00 EDT, Weight Dosing Start Date: 01/03/23 Status: Ordered sildenafil 20 mg oral tablet (10 sources) Phosphodiesterase 5 Inhibitor Start: 07-10-2024 take 1 tablet by mouth in the morning sildenafil (Revatio) 20 MG tablet TAKE 1 TABLET BY MOUTH IN THE MORNING AND IN THE EVENING 07/10/2024 Active sulfaSALAzine 500 mg oral tablet [...] qWeek, # 12 EA, Refills(s) 3, Pharmacy: [facility]/pharmacy #[id number], 158, cm, 05/25/23 15:27:00 EDT, Height/Length Dosing, 57.3, kg, 05/25/23 15:27:00 EDT, Weight Dosing Start Date: 12/10/23 Status: Ordered Start: 12-25-2022 Vitamin D 50,0 00 intl units (1.25 mg) oral capsule 50,000 International_Unit, Oral, qWeek, # 12 EA, Refills(s) 3, Pharmacy: [facility]/pharmacy #[id number], 158, cm, 06/11/22 15:39:00 EST, Height/Length Dosing, 61.4, kg, 06/11/22 15:39:00 EST, Weight Dosing Start Date: 12/25/22 Status: Ordered Start: 10-23-2021 Vitamin D 50,0 00 intl units (1.25 mg) oral capsule 50,000 International_Unit, Oral, qWeek, # 12 EA, Refills(s) 3, Pharmacy: [facility]/pharmacy #[id number], 158, cm, 09/02/21 14:45:00 EST, Height/Length Dosing, 60, kg, 09/02/21 14:45:00 EST, Weight Dosing Start Date: 10/23/21 Status: Ordered Completed/Discontinued Medications Medication Drug Class(es) Dates Sig (Normalized) Sig (Original) bacitracin 0.5 unt/mg / neomycin 0.0035 mg/mg / polymyxin b 10 unt/mg topical ointment (1 source) Aminoglycoside Antibacterial, Polymyxin-class Antibacterial Start: 10-09-2024 End: 10-09-2024 PRN, Starting on 10/09/24 at 1058, Intra-op budesonide 3 mg delayed release oral capsule (20 sources) Corticosteroid Start: 05-17-2024 take 1 capsule by mouth before mealtime, then take 3 mg by mouth every twenty-four hours budesonide EC (Entocort EC) 3 MG 24 hr capsule Take 9 mg by mouth in the morning. Take before meals. 05/17/2024 Active Start: 05-17-2024 take 1 capsule by mo ut every twenty-four hours before mealtime budesonide EC (Entocort EC) 3 mg 24 hr capsule Take 3 capsules (9 mg) by mouth once daily in the morning. Take before meals. 05/17/2024 Active Start: 07-28-2023 take 1 capsule by mo uth three times daily Budesonide 3 MG 1 Capsule Orally three times per day for 30 days Jul, Active Start: 10-13-2022 End: 01-15-2025 take 3 capsules by mouth once daily in the morning Budesonide 3 mg capsule,delayed,extend.release Discontinued 9 MG PO Every morning December 05, 2024 12:00am January 15, 2025 2:27pm Start: 10-13-2022 take 9 mg by mouth once daily Budesonide Active 9 MG PO Daily October 13, 2022 12:00am Start: 09-30-2020 take 3 capsules by m outh once daily in the morning budesonide 3 mg oral delayed release capsule 9 mg = 3 cap(s), Oral, qAM, # 90 cap(s), Refills(s) 2, Pharmacy: [facility]/pharmacy #[id number], 160, cm, 09/05/20 14:51:00 EST, Height/Length Dosing, 60.4, kg, 09/05/20 14:51:00 EST, Weight Dosing Start Date: 09/30/20 Status: Ordered take 2 capsules by m outh once daily in the morning budesonide EC (ENTOCORT EC) 3 mg 24 hr capsule Take 2 capsules (6 mg total) by mouth every morning. Active citalopram 10 mg oral tablet (17 sources) Serotonin Reuptake Inhibitor Start: 10-13-2022 End: 12-05-2024 take 1 tablet by mouth once daily in the morning Citalopram 10 mg tablet Discontinued 10 MG PO Every morning October 13, 2022 12:00am December 05, 2024 4:42pm Start: 05-12-2022 take 3 tablets by mo ut once daily, then take 2 tablets by [...] week., # 74 tab(s), Refills(s) 0, Pharmacy: [facility]/pharmacy #[id number], 158, cm, 05/12/22 15:40:00 EDT, Height/Length Dosing, 59.8, k... Start Date: 05/12/22 Status: Ordered Start: 02-05-2022 take 1 tablet by luke once daily CeleXA 40 mg Tab 40 mg = 1 tab(s), Oral, Daily, # 90 tab(s), Refills(s) 1, Pharmacy: [facility]/pharmacy #[id number], 158, cm, 09/02/21 14:45:00 EST, Height/Length Dosing, 60, kg, 09/02/21 14:45:00 EST, Weight Dosing Start Date: 02/05/22 Status: Ordered Citalopram [place] bromide Active clindamycin 10 mg/ml topical lotion (6 sources) Lincosamide Antibacterial Start: 12-06-2023 End: 12-05-2024 Clindamycin Phosphate 1 % lotion Discontinued TOPICAL December 06, 2023 12:00am December 05, 2024 4:39pm escitalopram 10 mg oral tablet (20 sources) Serotonin Reuptake Inhibitor Start: 12-31-2022 End: 12-05-2024 take 1 tablet by mouth once daily Escitalopram Oxalate 10 mg tablet Discontinued 10 MG PO Daily December 06, 2023 12:00am December 05, 2024 4:34pm 1 ml fentaNYL 0.05 mg/ml injection (1 source) Opioid Agonist Start: 10-09-2024 End: 10-09-2024 PRN, Starting on Wed10/09/24 at 1034, Until Wed10/09/24 at 1039, Intra-op fludeoxyglucose F 18 injection 18.8 millicurie (1 source) Start: 08-16-2024 End: 08-16-2024 take 1 dose intravenously once 18.8 millicurie, IntraVENous, IMG ONCE PRN, 1 dose, Starting on Wed08/16/24 at 1500, Until Wed08/16/24 at 1500, Other, Indication of use: Oncology Imaging 10 ml lidocaine hydrochloride 20 mg/ml injection (1 source) Antiarrhythmic, Amide Local Anesthetic Start: 10-09-2024 End: 10-09-2024 PRN, Starting on Wed10/09/24 at 1040, Until Wed10/09/24 at 1040, Intra-op LORazepam 1 mg oral tablet (3 sources) Benzodiazepine Start: 03-15-2025 End: 03-15-2025 Lorazepam (Ativan) 1 mg tablet Discontinued 1 MG PO Once as needed for anxiety 1 March 15, 2025 12:00am March 15, 2025 10:30am take 45-60 minutes prior to MRI Start: 05-12-2022 End: 05-26-2022 take 1 tablet by mouth once daily as needed for anxiety Ativan 0.5 mg Tab 0.5 mg = 1 tab(s), Oral, Daily, PRN for anxiety, X 14 day(s), # 14 tab(s), Refills(s) 0, Pharmacy: [facility]/pharmacy #[id number], 158, cm, 05/12/22 15:40:00 EDT, Height/Length Dosing, 59.8, kg, 05/12/22 15:40:00 EDT, Weight Dosing Start Date: 05/12/22 Stop Date: 05/26/22 Status: Ordered 2 ml midazolam 1 mg/ml injection (1 source) Benzodiazepine Start: 10-09-2024 End: 10-09-2024 PRN, Starting on Wed10/09/24 at 1034, Until Wed10/09/24 at 1039, Intra-op progesterone 100 mg oral capsule (20 sources) Progesterone Start: 01-16-2022 End: 12-05-2024 take 1 capsule by mouth once daily Progesterone Micronized 100 mg capsule Discontinued 100 MG PO Daily October 13, 2022 12:00am December 05, 2024 4:39pm Progesterone Act marlo 1000 ml sodium chloride 9 mg/ml injection (1 source) Start: 10-09-2024 End: 10-09-2024 Administer over 121 Minutes, CONTINUOUS PRN, Starting on Wed10/09/24 at 1034, Intra-op triamcinolone acetonide 1 mg/ml topical cream (6 sources) Corticosteroid Start: 12-06-2023 End: 12-05-2024 Triamcinolone Acetonide 0.1 % cream Discontinued 1 APPLIC TOPICAL Twice daily December 06, 2023 12:00am December 05, 2024 4:39pm Problems Active Problems Problem Classification Problem Date Documented Date Episodic/Chronic Abdominal pain (13 sources) Abdominal pain; Translations: [Unspecified abdominal pain] Onset: 2 Resolved: 2 Episodic Alcohol-related disorders (2 sources) Alcohol dependence, in remission; Translations: [Alcohol abuse] Onset: 2 Chronic Cancer of bronchus; lung (18 sources) Malignant tumor of lung; Translations: [Malignant neoplasm of unspecified part of left bronchus or lung] Onset: 5 Resolved: 5 10-26-2024 Chronic Cardiac and circulatory congenital anomalies (4 sources) Disorder of aorta; Translations: [Coarctation of aorta] 03-16-2024 Chronic Coagulation and hemorrhagic disorders (6 sources) Purpura of skin caused by mechanical force; Translations: [Other nonthrombocytopenic purpura] 12-06-2023 Episodic Complications of surgical procedures or medical care (1 source) Postoperative hypothyroidism; Translations: [Postprocedural hypothyroidism] Onset: 4 Chronic Coronary atherosclerosis and other heart disease (1 source) Presence of coronary angioplasty implant and graft; Translations: [PRESENCE COR ANGPLSTY IMPLANT AND GRAFT] Onset: 2 Episodic Diabetes mellitus without complication (1 source) Presence of insulin pump (external) (internal); Translations: [PRESENCE INSULIN PUMP EXT INTERNAL] Onset: 2 Episodic E Codes: Fall (1 source) Unspecified fall, initial encounter; Translations: [UNSPECIFIED FALL INITIAL ENCOUNTER] Onset: 2 Episodic Essential hypertension (14 sources) Hypertensive disorder; Translations: [Essential hypertension] Onset: 3 01-18-2014 Chronic Mood disorders (2 sources) Mood disorders; Translations: [Depression, unspecified] Onset: 5 Noninfectious gastroenteritis (4 sources) Colitis; Translations: [Noninfective gastroenteritis and colitis, unspecified] 01-15-2025 Episodic Nonspecific chest pain (11 sources) Chest pain, unspecified; Translations: [Chest pain] Onset: 2 Episodic Other aftercare (1 source) Other custodial (current) drug therapy; Translations: [OTH BANKRUPTCY PARALEGAL CURRENT DRUG THERAPY] Onset: 2 Episodic Other aftercare (3 sources) correction (current) use of insulin; Translations: [BANKRUPTCY PARALEGAL CURRENT USE OF INSULIN] Onset: 2 Episodic Other circulatory disease (1 source) Critical lower limb ischemia 10-04-2024 Episodic Other endocrine disorders (8 sources) Disorder of endocrine system; Translations: [Endocrine disorder, unspecified] Onset: 2 Episodic Other gastrointestinal disorders (10 sources) Incontinence of feces; Translations: [Full incontinence of feces] Episodic Other gastrointestinal disorders (10 sources) Abnormal feces; Translations: [Other fecal abnormalities] Episodic Other gastrointestinal disorders (1 source) Functional diarrhea Episodic Other injuries and conditions due to external causes (1 source) Unspecified injury of head, initial encounter; Translations: [UNSPECIFIED INJURY HEAD INITIAL ENC] Onset: 2 Episodic Other lower respiratory disease (11 sources) Lung mass; Translations: [Other nonspecific abnormal finding of lung field] 08-16-2024 Episodic Other lower respiratory disease (2 sources) Other forms of dyspnea; Translations: [Other forms of dyspnea] Onset: 5 Episodic Other lower respiratory disease (1 source) Snoring; Translations: [Snoring] Onset: 5 Episodic Other nervous system disorders (6 sources) Chronic pain syndrome; Translations: [Chronic pain syndrome] Onset: 7 Resolved: 5 10-29-2024 Chronic Other nervous system disorders (1 source) Tremor, unspecified; Translations: [TREMOR UNSPECIFIED] Onset: 2 Episodic Other screening for suspected conditions (not mental disorders or infectious disease) (2 sources) CT of chest abnormal; Translations: [Abnormal findings on diagnostic imaging of other specified body structures] Onset: 5 08-16-2024 Chronic Other skin disorders (6 sources) Mass of neck; Translations: [Localized swelling, mass and lump, neck] 10-30-2024 Episodic Regional enteritis and ulcerative colitis (20 sources) Ulcerative colitis; Translations: [Ulcerative colitis, unspecified, without complications] Onset: 2 Resolved: 5 Chronic Residual codes; unclassified (1 source) Other problems related to lifestyle; Translations: [OTHER PROBLEMS RELATED TO LIFESTYLE] Onset: 2 Episodic Residual codes; unclassified (2 sources) Preoperative state 10-30-2024 Episodic Residual codes; unclassified (2 sources) Body mass index (BMI) 24.0-24.9, adult; Translations: [Body mass index (BMI) 24.0-24.9, adult] Onset: 5 Episodic Residual codes; unclassified (2 sources) Body mass index (BMI) 23.0-23.9, adult; Translations: [Body mass index (BMI) 23.0-23.9, adult] Onset: 5 Episodic Residual codes; unclassified (2 sources) Tobacco use; Translations: [Tobacco use] Onset: 5 Episodic Superficial injury; contusion (1 source) Contusion of other part of head, initial encounter; Translations: [CONTUS OTH PRT HEAD INITIAL ENCNTR] Onset: 2 Episodic Transient cerebral ischemia (1 source) Transient cerebral ischemia; Translations: [Transient cerebral ischemic attack, unspecified] Onset: 4 Chronic Unclassified (1 source) CONTACT W/AND (SUSP) EXPOS COVID-19; Translations: [CONTACT W/AND (SUSP) EXPOS COVID-19] Onset: 2 Unclassified (17 sources) Body mass index 20-24 - normal 11-27-2019 Unclassified (8 sources) Lifestyle 05-26-2021 Unclassified (20 sources) Patient encounter status 05-26-2021 Unclassified (6 sources) Long-term current use of insulin 06-10-2022 Comment on above: Added per outpatient CDI policy. Past or Other Problems Problem Classification Problem Date Documented Da te Episodic/Chronic Anxiety disorders (20 sources) Anxiety disorder; Translations: [Anxiety disorder, unspecified] Onset: 12-31-2022 Resolved: 10-29-2024 05-26-2021 Chronic Cataract (11 sources) Cataract; Translations: [Unspecified cataract] Onset: 10-26-2024 Resolved: 10-29-2024 10-26-2024 Chronic Chronic obstructive pulmonary disease and bronchiectasis (20 sources) Pulmonary emphysema; Translations: [Emphysema, unspecified] Onset: 05-12-2022 Resolved: 10-29-2024 Chronic Coronary atherosclerosis and other heart disease (20 sources) Atherosclerotic heart disease of [place] coronary artery without angina pectoris; Translations: [Coronary atherosclerosis] Onset: 01-19-2022 Resolved: 10-29-2024 01-18-2014 Chronic Diabetes mellitus with complications (16 sources) Complication due to diabetes mellitus; Translations: [Type 2 diabetes mellitus with other specified complication] Onset: 12-31-2022 Resolved: 10-29-2024 Chronic Comment on above: Noted in [facility] doc umentation 08/12/2021 page 2, added per outpatient CDI policy. Diabetes mellitus without complication (20 sources) Type 1 diabetes mellitus without complications; Translations: [Type 2 diabetes mellitus without complication] Onset: 01-19-2022 Resolved: 10-29-2024 Chronic Comment on above: Added per outpatient CDI policy. Disorders of lipid metabolism (20 sources) Hyperlipidemia; Translations: [Hyperlipidemia, unspecified] Onset: 12-31-2022 Resolved: 10-29-2024 05-26-2019 Chronic Fluid and electrolyte disorders (13 sources) Dehydration; Translations: [Dehydration] Onset: 12-31-2022 Resolved: 10-29-2024 Episodic Gangrene (20 sources) Critical lower limb ischemia ; Translations: [Atherosclerosis of [place] arteries of extremities with gangrene, left leg] Onset: 01-13-2024 Resolved: 10-29-2024 01-13-2024 Chronic Heart valve disorders (20 sources) Aortic valve stenosis; Translations: [Nonrheumatic aortic (valve) stenosis] Onset: 02-10-2024 Resolved: 10-29-2024 03-28-2024 Chronic Menopausal disorders (7 sources) Postmenopausal bleeding; Translations: [Postmenopausal bleeding] Onset: 10-29-2024 Resolved: 10-29-2024 05-25-2023 Chronic Mood disorders (20 sources) Major depressive disorder, single episode, unspecified; Translations: [Mild major depression, single episode] Onset: 01-19-2022 Resolved: 10-29-2024 Chronic Nutritional deficiencies (18 sources) Vitamin D deficiency; Translations: [Vitamin D deficiency, unspecified] Onset: 03-28-2024 Resolved: 10-29-2024 05-26-2019 Chronic Nutritional deficiencies (13 sources) Vitamin B deficiency; Translations: [Deficiency of other specified B group vitamins] Onset: 12-31-2022 Resolved: 10-29-2024 Episodic Osteoarthritis (14 sources) Osteoarthritis; Translations: [Unspecified osteoarthritis, unspecified site] Onset: 10-29-2024 Resolved: 10-29-2024 11-16-2014 Chronic Comment on above: Knees Other aftercare (11 sources) Long-term current use of insulin; Translations: [correction (current) use of insulin] Onset: 12-31-2022 Resolved: 10-29-2024 Episodic Other and ill-defined heart disease (6 sources) Heart disease; Translations: [Heart disease, unspecified] Onset: 10-29-2024 Resolved: 10-29-2024 10-29-2024 Chronic Other and unspecified benign neoplasm (14 sources) History of polyp of colon; Translations: [History of colon polyps] Onset: 10-29-2024 Resolved: 10-29-2024 09-02-2021 Episodic Other connective tissue disease (6 sources) H/O Spinal surgery; Translations: [Arthrodesis status] Onset: 10-29-2024 Resolved: 10-29-2024 10-29-2024 Episodic Other diseases of kidney and ureters (6 sources) Abnormal renal function; Translations: [Disorder of kidney and ureter, unspecified] Onset: 10-29-2024 Resolved: 10-29-2024 10-29-2024 Episodic Other gastrointestinal disorders (2 sources) Full incontinence of feces Onset: 10-29-2021 Resolved: 11-13-2021 Episodic Other gastrointestinal disorders (1 source) Other fecal abnormalities Onset: 10-29-2021 Resolved: 10-29-2021 Episodic Other gastrointestinal disorders (14 sources) Loose stool; Translations: [Other fecal abnormalities] Onset: 10-29-2024 Resolved: 10-29-2024 09-02-2021 Episodic Other gastrointestinal disorders (6 sources) Dysphagia; Translations: [Dysphagia, unspecified] Onset: 11-10-2016 Resolved: 10-29-2024 10-29-2024 Episodic Other injuries and conditions due to external causes (14 sources) History of fall; Translations: [History of falling] Onset: 10-29-2024 Resolved: 10-29-2024 05-26-2021 Episodic Other lower respiratory disease (5 sources) Other nonspecific abnormal finding of lung field; Translations: [Swelling, mass, or lump in chest] Onset: 08-16-2024 Episodic Other lower respiratory disease (13 sources) Dyspnea on exertion; Translations: [Other forms of dyspnea] Onset: 10-26-2024 Resolved: 10-29-2024 10-30-2024 Episodic Other lower respiratory disease (12 sources) Snoring; Translations: [Snoring] Onset: 10-26-2024 Resolved: 10-29-2024 10-26-2024 Episodic Other nervous system disorders (20 sources) Tremor; Translations: [Tremor, unspecified] Onset: 05-12-2022 Resolved: 10-29-2024 Episodic Other nervous system disorders (6 sources) Impairment of balance; Translations: [Other abnormalities of gait and mobility] Onset: 11-10-2016 Resolved: 10-29-2024 10-29-2024 Episodic Other screening for suspected conditions (not mental disorders or infectious disease) (20 sources) Encounter for screening mammogram for malignant neoplasm of breast; Translations: [Screening for malignant neoplasm done] Onset: 12-31-2022 Resolved: 10-29-2024 Episodic Other upper respiratory disease (14 sources) Chronic hoarseness; Translations: [Dysphonia] Onset: 10-29-2024 Resolved: 10-29-2024 12-27-2020 Episodic Peripheral and visceral atherosclerosis (17 sources) Peripheral vascular disease; Translations: [Peripheral vascular disease, unspecified] Onset: 03-21-2024 Resolved: 10-29-2024 Chronic Residual codes; unclassified (10 sources) Body mass index 20-24 - normal; Translations: [Body mass index (BMI) 23.0-23.9, adult] Onset: 10-26-2024 Resolved: 10-29-2024 10-26-2024 Episodic Residual codes; unclassified (11 sources) Tobacco user; Translations: [Tobacco use] Onset: 10-26-2024 Resolved: 10-29-2024 10-26-2024 Episodic Screening and history of mental health and substance abuse codes (6 sources) Ex-smoker; Translations: [Personal history of nicotine dependence] Onset: 10-29-2024 Resolved: 10-29-2024 10-29-2024 Episodic Spondylosis; intervertebral disc disorders; other back problems (14 sources) Low back pain; Translations: [Backache] Onset: 10-29-2024 Resolved: 10-29-2024 09-05-2020 Episodic Substance-related disorders (20 sources) Cocaine abuse, in remission; Translations: [Nicotine dependence, cigarettes, uncomplicated] Onset: 01-19-2022 Resolved: 10-29-2024 12-27-2020 Chronic Comment on above: Added secondary to d ocumentation in Social History. Thyroid disorders (20 sources) Hypothyroidism, unspecified; Translations: [Hypothyroidism] Onset: 08-02-1999 Resolved: 10-29-2024 Chronic Unclassified (4 sources) Onset: 04-04-2024 04-04-2024 Results Test Name Value Interpretation Reference Range Facility Glucose Poct Glucometerson 0 03-26-2025 Glucose [Mass/Vol] 341 mg/dL Normal [facility] Comment on above: Result Comment: [facility] Glucose Reference Range is dependent on time and content of last meal. Glucose of more than 200 mg/dL in a nonstressed, ambulatory subject supports the diagnosis of Diabetes Mellitus. PERFORMED BY: [place] [address] PATHOLOGIST STUFFED CASING TIER DIMITRIOS KRUSE M.D. Performed By: #### G LULS #### Point of Care testing , MR head/brain wo/w conon MR head/brain wo/w con [facility] [place] [address] [place], [place] [id number] MRI Report Signed Patient: Cari Hale MR#: [id number] : 1965 Acct:[id number] Age/Sex: 60 / F ADM Date: 03/26/25 Loc: MR Room: Type: [facility] Attending Dr: Genie Bass MD Copies to: Genie Bass MD Ordering Provider: Genie Bass MD Date of Service: 03/26/25 MR/MR head/brain wo/w con: C34.90 MR head/brain wo/w con 03/26/2025 10:34 AM SIGN AND SYMPTOMS: New diagnosed lung cancer, screening/staging PROTOCOL: Multiplanar multisequence MR images of the brain with and without IV contrast CONTRAST: 12 mL of intravenous ProHance COMPARISON: None. FINDINGS: Extra axial spaces: There is mild age-related cortical atrophy. Hemorrhage: None. Ventricular system: Within normal limits. Basal cisterns: Within normal limits and not effaced. Cerebral parenchyma: There is periventricular and subcortical white matter T2 and FLAIR hyperintense signal consistent with chronic microvascular ischemic change. Gliosis and encephalomalacia is noted along the gyrus rectus at the base of the frontal lobes bilaterally consistent with a remote injury. Midline shift: None.. Cerebellum: Remote lacunar infarcts are noted in the left cerebellar hemisphere. Brainstem: Within normal limits. OTHER: Calvarium: Normal marrow signal. Vascular system: Satisfactory flow voids within the anterior and posterior circulation. Visualized Paranasal sinuses: There is partial opacification of the right maxillary sinus. Visualized Orbits: Within normal limits. Visualized upper cervical spine: Within normal limits. Sella and skull base: Within normal limits. MR/MR head/brain wo/w con IMPRESSION: No acute intracranial pathology or abnormal postcontrast enhancement. No evidence of intracranial metastatic disease. Chronic age-related neurodegenerative changes are noted. Gliosis and encephalomalacia is noted along the gyrus rectus at the base of the frontal lobes bilaterally consistent with a remote injury. Remote lacunar infarcts are noted in the left cerebellar hemisphere. Impression dictated by: Jesse aMrtínez M.D. 03/26/2025 10:13 PM Dictation Location: [place] [address] Transcribed By: BLANCA 03/26/252212 Dictated By: Jesse Martínez II, MD 03/26/252204 Signed By: 03/26/252212 Normal [facility] Complete Blood Count Auto Di ffon 03-15-2025 Basophils (Bld) [#/Vol] 0.1 10*3/uL Normal 0.0-0.2 [facility] Comment on above: Result Comment: PERF ORMED BY: [place] [address] PATHOLOGIST STUFFED CASING TIER DIMITRIOS KRUSE M.D. Performed By: #### C BC, CMP #### [address] Basophils/100 WBC (Bld) 0.6 % Normal . Kalina gao [facility] Comment on above: Performed By: #### C BC, CMP #### [place] [address] [place] Eosinophils (Bld) [#/Vol] 0.2 10*3/uL Normal 0.0-0.45 [facility] Comment on above: Performed By: #### C BC, CMP #### [place] [address] [place] Eosinophils/100 WBC (Bld) 1.6 % Normal . [facility] Comment on above: Performed By: #### C BC, CMP #### [address] Erythrocyte distribution width (RBC) [Ratio] 14.0 % Normal 11.9-15.3 [facility] Comment on above: Performed By: #### C BC, CMP #### [address] Hematocrit (Bld) [Volume fraction] 36.2 % Normal 34.0-46.4 [facility] Comment on above: Performed By: #### C BC, CMP #### [address] Hemoglobin (Bld) [Mass/Vol] 11.7 g/dL Low 11.8-15.4 [facility] Comment on above: Performed By: #### C BC, CMP #### [address] Lymphocytes (Bld) [#/Vol] 2.8 10*3/uL Normal 1.00-4.8 [facility] Comment on above: Performed By: #### C BC, CMP #### [address] Lymphocytes/100 WBC (Bld) 24.3 % Normal . [facility] Comment on above: Performed By: #### C BC, CMP #### [address] MCH (RBC) [Entitic mass] 31.0 pg Normal 24.7-34.3 [facility] Comment on above: Performed By: #### C BC, CMP #### [address] MCV (RBC) [Entitic vol] 95.6 fL Normal 80-100 [facility] Comment on above: Performed By: #### C BC, CMP #### [address] Mean Corpuscular HGB Conc 32.4 g/dL Normal 32.0-35.0 [facility] Comment on above: Performed By: #### C BC, CMP #### [address] Monocytes (Bld) [#/Vol] 0.9 10*3/uL High 0.0-0.8 [facility] Comment on above: Performed By: #### C BC, CMP #### [facility] [address] [place] [address] [place] Monocytes/100 WBC (Bld) 7.9 % Normal . T mojgan [facility] Comment on above: Performed By: #### C BC, CMP #### [facility] [address] [place] [address] [place] Neutrophils (Bld) [#/Vol] 7.5 10*3/uL Normal 1.8-7.7 [facility] Comment on above: Performed By: #### C BC, CMP #### [address] Neutrophils/100 WBC (Bld) 65.6 % Normal . [facility] Comment on above: Performed By: #### C BC, CMP #### [address] NRBC% 0.1 /100{WBC} Normal 0-0.5 [facility] Comment on above: Performed By: #### C BC, CMP #### [place] [address] [place] Platelet mean volume (Bld) [Entitic vol] 7.3 fL Normal 6.3-10.7 [facility] Comment on above: Performed By: #### C BC, CMP #### [place] [address] [place] Platelets (Bld) [#/Vol] 365 10*3/uL Normal 150-450 [facility] Comment on above: Performed By: #### C BC, CMP #### [place] [address] [place] RBC (Bld) [#/Vol] 3.79 10*6/uL Normal 3.60-5.00 [facility] Comment on above: Performed By: #### C BC, CMP #### [place] [address] [place] WBC (Bld) [#/Vol] 11.4 10*3/uL Normal 3.8-11.6 [facility] Comment on above: Performed By: #### C BC, CMP #### [address] White Blood Count 11.4 [CFU]/mL Normal 3.8-11.6 [facility] Comment on above: Performed By: #### C BC, CMP #### [address] Comprehensive Metabolic Pane chet 03-15-2025 Albumin [Mass/Vol] 4.0 g/dL Normal 3.5-5.7 [facility] Comment on above: Performed By: #### C BC, CMP #### [address] Albumin/Globulin [Mass ratio] 1.5 {ratio} Normal [facility] Comment on above: Performed By: #### C BC, CMP #### [address] ALP [Catalytic activity/Vol] 98 U/L Normal 34-104 [facility] Comment on above: Performed By: #### C BC, CMP #### [address] ALT [Catalytic activity/Vol] 19 U/L Normal 7-52 [facility] Comment on above: Performed By: #### C BC, CMP #### [address] Anion gap [Moles/Vol] 15.4 mmol/L High 6.0-15.0 Th e [facility] Comment on above: Performed By: #### C BC, CMP #### [address] AST [Catalytic activity/Vol] 26 U/L Normal 13-39 [facility] Comment on above: Performed By: #### C BC, CMP #### [address] Bilirubin [Mass/Vol] 0.5 mg/dL Normal 0.3-1.0 [facility] Comment on above: Performed By: #### C BC, CMP #### [place] [address] [place] Calcium [Mass/Vol] 8.8 mg/dL Normal 8.6-10.3 [facility] Comment on above: Performed By: #### C BC, CMP #### [address] Chloride [Moles/Vol] 97 mmol/L Low 98-107 [facility] Comment on above: Performed By: #### C BC, CMP #### [address] CO2 [Moles/Vol] 26.2 mmol/L Normal 21.0-31.0 [facility] Comment on above: Performed By: #### C BC, CMP #### [address] Creatinine [Mass/Vol] 0.97 mg/dL Normal 0.60-1.20 [facility] Comment on above: Performed By: #### C BC, CMP #### [address] Creatinine Clr Calc Pharmacy 51.95 Normal [facility] Comment on above: Result Comment: PERF ORMED BY: [place] [address] PATHOLOGIST STUFFED CASING TIER DIMITRIOS KRUSE M.D. Performed By: #### C BC, CMP #### [address] GFR/1.73 sq M.predicted MDRD (S/P/Bld) [Vol rate/Area] mL/min/{1.73_m2} Normal [facility] Comment on above: Performed By: #### C BC, CMP #### [place] [address] [place] Globulin (S) [Mass/Vol] 2.6 g/dL Normal T he [facility] Comment on above: Performed By: #### C BC, CMP #### [address] Glucose [Mass/Vol] 340 mg/dL High 70-100 [facility] Comment on above: Result Comment: [place] Glucose Reference Range is dependent on time and content of last meal. Glucose of more than 200 mg/dL in a nonstressed, ambulatory subject supports the diagnosis of Diabetes Mellitus. ADA recommended reference range Performed By: #### C BC, CMP #### [facility] [address] Potassium [Moles/Vol] 4.6 mmol/L Normal 3.5-5.1 [facility] Comment on above: Performed By: #### C BC, CMP #### [facility] [address] Protein [Mass/Vol] 6.6 g/dL Normal 6.4-8.9 [facility] Comment on above: Performed By: #### C BC, CMP #### [facility] [address] Sodium [Moles/Vol] 134 mmol/L Low 136-145 [facility] Comment on above: Performed By: #### C BC, CMP #### [address] Urea nitrogen [Mass/Vol] 10 mg/dL Normal 7-25 [facility] Comment on above: Performed By: #### C BC, CMP #### [address] SEGMENTAL BLOOD PRESSUREon 0 02-24-2025 The [facility] [address] [place] [address] Cardiology Report Signed Patient: CARI HALE MR#: [id number] : 1965 Acct:[id number] Age/Sex: 60 / F ADM Date: 02/23/25 Loc: CARD Attending Dr: Eleanor Phelps M.D. Ordering Physician: Eleanor Phelps M.D. Date of Service: 02/23/25 Procedure(s): CA segmental UE or LE JACE Accession Number(s): [id number] cc: RENATE DIALLO Mohamed M.D. [facility] Test Date: 2025-02-23 Pat Name: CARI HALE Department: Room: - Gender: Female Imcu Specialist: : 1965 Requested By: 1892 Order Number: [id number] Reading MD: HERBERT SIDDIQI M.D. Interpretive Statements Summary of the findings: [...] Electronically Signed On 02-24-2025 8:40:48 EDT by HERBERT SIDDIQI M.D. 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 Ordering Physician: Eleanor Phelps M.D. Date of Service: 02/23/25 Procedure(s): CA segmental UE or LE JACE Accession Number(s): [id number] cc: RENATE DIALLO Mohamed M.D. [facility] Test Date: 2025-02-23 Pat Name: CARI HALE Department: Room: - Gender: Female Imcu Specialist: : 1965 Requested By: 1892 Order Number: [id number] Reading MD: HERBERT SIDDIQI M.D. Interpretive Statements Summary of the findings: [...] Electronically Signed On 02-24-2025 8:40:48 EDT by HERBERT SIDDIQI M.D. 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: [facility] [employer] SEGMENTAL BLOOD PRESSUREOrde red By: Radiologist Radiology on 02-24-2025 [facility] [employer] Work Phone: SEGMENTAL BLOOD PRESSUREon 0 02-23-2025 Radiology Study observation (narrative) [facility] [employer] Pain Mgt Drug Panel, Hi Res, Uron 01-14-2025 6-acetylmorphine (cutoff 20 ng/mL) Not detected Normal [facility] Comment on above: Result Comment: INTE RPRETIVE INFORMATION:6-acetylmorphine, U Positive Cutoff: 20 ng/mL Methodology: Mass Spectrometry 7-Aminoclonazepam (cutoff 40 ng/mL) Not detected Normal [facility] Comment on above: Result Comment: INTE RPRETIVE INFORMATION:7-Aminoclonazepam, U Positive Cutoff: 40 ng/mL Methodology: Mass Spectrometry Npiyh-PV-Hlnockjutp (cutoff 20 ng/mL) Present Normal [facility] Comment on above: Result Comment: INTE RPRETIVE INFORMATION:Iyvsc-TD-Udxfhfcrzn, U Positive Cutoff: 20 ng/mL Methodology: Mass Spectrometry Vsige-UY-Ozbqbyeqc (cutoff 20 ng/mL) Not detected [facility] Comment on above: Result Comment: INTE RPRETIVE INFORMATION:Ffovi-KY-Bmjofphum, U Positive Cutoff: 20 ng/mL Methodology: Mass Spectrometry Alprazolam (cutoff 40 ng/mL) Present Normal [facility] Comment on above: Result Comment: INTE RPRETIVE INFORMATION:Alprazolam, U Positive Cutoff: 40 ng/mL Methodology: Mass Spectrometry Amphetamine (cutoff 100 ng/mL) Not detected [facility] Comment on above: Result Comment: INTE RPRETIVE INFORMATION:Amphetamine, U Positive Cutoff: 50 ng/mL Methodology: Mass Spectrometry Barbiturates (cutoff 200 ng/mL) Negative [facility] Comment on above: Result Comment: Pres umptive negative by immunoassay. Testing by mass spectrometry is available on request. INTERPRETIVE INFORMATION:Barbiturates Screen, U Positive Cutoff: 200 ng/mL Methodology: Immunoassay Benzoylecgonine Ql (U) Negative Normal [facility] Comment on above: Result Comment: Pres umptive negative by immunoassay. Testing by mass spectrometry is available on request. INTERPRETIVE INFORMATION:Cocaine Screen, U Positive Cutoff: 150 ng/mL Methodology: Immunoassay Buprenorphine (cutoff 5 ng/mL) Not detected [facility] Comment on above: Result Comment: INTE RPRETIVE INFORMATION:Buprenorphine, U Positive Cutoff: 5 ng/mL Methodology: Mass Spectrometry Carisoprodol (cutoff 100 ng/mL) Negative [facility] Comment on above: Result Comment: Pres umptive negative by immunoassay. Testing by mass spectrometry is available on request. INTERPRETIVE INFORMATION: Carisoprodol Screen, U Positive Cutoff: 100 ng/mL Methodology: Immunoassay The carisoprodol immunoassay has cross-reactivity to carisoprodol and meprobamate. Clonazepam (cutoff 20 ng/mL) Not detected [facility] Comment on above: Result Comment: INTE RPRETIVE INFORMATION:Clonazepam, U Positive Cutoff: 20 ng/mL Methodology: Mass Spectrometry Codeine (cutoff 40 ng/mL) Not detected [facility] Comment on above: Result Comment: INTE RPRETIVE INFORMATION: Codeine, U Positive Cutoff: 40 ng/mL Methodology: Mass Spectrometry Creatinine, Urine 100.6 mg/dL Normal 20.0-400.0 [facility] Diazepam (cutoff 50 ng/mL) Not detected Normal [facility] Comment on above: Result Comment: INTE RPRETIVE INFORMATION:Diazepam, U Positive Cutoff: 50 ng/mL Methodology: Mass Spectrometry EER Pain Mgt Drug Panel High Res/EMIT U See Note Normal [facility] Comment on above: Result Comment: Auth orized individuals can access the [facility] Enhanced Report with an [employer] Connect account using the following link. Your local lab can assist you in obtaining the patient report if you don't have a Connect account. [email or web address] Performed By: [facility] [address] [place] [id number] Tortilla Maker: Tano Ward MD, PhD CLIA Number: [id number] Ethyl Glucuronide (cutoff 500 ng/mL) PresumptivePOS Normal [facility] Comment on above: Result Comment: Pres umptive positive by immunoassay. Testing by mass spectrometry is available on request. INTERPRETIVE INFORMATION:Ethyl Glucuronide Screen, U Positive Cutoff: 500 ng/mL Methodology: Immunoassay Fentanyl (cutoff 2 ng/mL) Not detected Normal [facility] Comment on above: Result Comment: INTE RPRETIVE INFORMATION:Fentanyl, U Positive Cutoff: 2 ng/mL Methodology: Mass Spectrometry Gabapentin (cutoff 100 ng/mL) Not detected Normal [facility] Comment on above: Result Comment: INTE RPRETIVE INFORMATION:Gabapentin, U Positive Cutoff: 3,000 ng/mL Methodology: Mass Spectrometry Hydrocodone (cutoff 40 ng/mL) Not detected Normal [facility] Comment on above: Result Comment: INTE RPRETIVE INFORMATION:Hydrocodone, U Positive Cutoff: 40 ng/mL Methodology: Mass Spectrometry Hydromorphone (cutoff 40 ng/mL) Not detected Normal [facility] Comment on above: Result Comment: INTE RPRETIVE INFORMATION:Hydromorphone, U Positive Cutoff: 20 ng/mL Methodology: Mass Spectrometry Lorazepam (cutoff 60 ng/mL) Not detected Normal [facility] Comment on above: Result Comment: INTE RPRETIVE INFORMATION:Lorazepam, U Positive Cutoff: 60 ng/mL Methodology: Mass Spectrometry Marijuana Metabolite (cutoff 20 ng/mL) Negative Normal [facility] Comment on above: Result Comment: Pres umptive negative by immunoassay. Testing by mass spectrometry is available on request. INTERPRETIVE INFORMATION: THC (Cannabinoids) Screen, U Positive Cutoff: 50 ng/mL Methodology: Immunoassay MDA (cutoff 200 ng/mL) Not detected [facility] Comment on above: Result Comment: INTE RPRETIVE INFORMATION:MDA, U Positive Cutoff: 200 ng/mL Methodology: Mass Spectrometry MDEA-Vickie (cutoff 200 ng/mL) Not detected Normal [facility] Comment on above: Result Comment: INTE RPRETIVE INFORMATION:MDEA, U Positive Cutoff: 200 ng/mL Methodology: Mass Spectrometry MDMA-Ecstasy (cutoff 200 ng/mL) Not detected [facility] Comment on above: Result Comment: INTE RPRETIVE INFORMATION:MDMA, U Positive Cutoff: 200 ng/mL Methodology: Mass Spectrometry Meperidine metabolite (cutoff 50 ng/mL) Not detected [facility] Comment on above: Result Comment: INTE RPRETIVE INFORMATION:Meperidine metabolite, U Positive Cutoff: 50 ng/mL Methodology: Mass Spectrometry Methadone Ql (U) Negative [facility] Comment on above: Result Comment: Pres umptive negative by immunoassay. Testing by mass spectrometry is available on request. INTERPRETIVE INFORMATION: Methadone Screen, U Positive Cutoff: 150 ng/mL Methodology: Immunoassay Methamphetamine (cutoff 400 ng/mL) Not detected [facility] Comment on above: Result Comment: INTE RPRETIVE INFORMATION:Methamphetamine, U Positive Cutoff: 200 ng/mL Methodology: Mass Spectrometry Methylphenidate (cutoff 100 ng/mL) Not detected [facility] Comment on above: Result Comment: INTE RPRETIVE INFORMATION:Methylphenidate, U Positive Cutoff: 100 ng/mL Methodology: Mass Spectrometry Midazolam (cutoff 20 ng/mL) Not detected [facility] Comment on above: Result Comment: INTE RPRETIVE INFORMATION:Midazolam, U Positive Cutoff: 20 ng/mL Methodology: Mass Spectrometry Morphine (cutoff 20 ng/mL) Not detected [facility] Comment on above: Result Comment: INTE RPRETIVE INFORMATION:Morphine, U Positive Cutoff: 20 ng/mL Methodology: Mass Spectrometry Naloxone (cutoff 100 ng/mL) Not detected [facility] Comment on above: Result Comment: INTE RPRETIVE INFORMATION:Naloxone, U Positive Cutoff: 100 ng/mL Methodology: Mass Spectrometry Norbuprenorphine (cutoff 20 ng/mL) Not detected Normal [facility] Comment on above: Result Comment: INTE RPRETIVE INFORMATION:Norbuprenorphine, U Positive Cutoff: 20 ng/mL Methodology: Mass Spectrometry Nordiazepam (cutoff 50 ng/mL) Not detected Normal [facility] Comment on above: Result Comment: INTE RPRETIVE INFORMATION:Nordiazepam, U Positive Cutoff: 50 ng/mL Methodology: Mass Spectrometry Norfentanyl (cutoff 2 ng/mL) Not detected Normal [facility] Comment on above: Result Comment: INTE RPRETIVE INFORMATION:Norfentanyl, U Positive Cutoff: 2 ng/mL Methodology: Mass Spectrometry Norhydrocodone (cutoff 100 ng/mL) Not detected Normal [facility] Comment on above: Result Comment: INTE RPRETIVE INFORMATION:Norhydrocodone, U Positive Cutoff: 100 ng/mL Methodology: Mass Spectrometry Noroxycodone (cutoff 100 ng/mL) Not detected Normal [facility] Comment on above: Result Comment: INTE RPRETIVE INFORMATION:Noroxycodone, U Positive Cutoff: 100 ng/mL Methodology: Mass Spectrometry Noroxymorphone (cutoff 100 ng/mL) Not detected Normal [facility] Comment on above: Result Comment: INTE RPRETIVE INFORMATION:Noroxymorphone, U Positive Cutoff: 100 ng/mL Methodology: Mass Spectrometry Oxazepam (cutoff 50 ng/mL) Not detected Normal [facility] Comment on above: Result Comment: INTE RPRETIVE INFORMATION:Oxazepam, U Positive Cutoff: 50 ng/mL Methodology: Mass Spectrometry Oxycodone (cutoff 40 ng/mL) Not detected Normal [facility] Comment on above: Result Comment: INTE RPRETIVE INFORMATION:Oxycodone, U Positive Cutoff: 40 ng/mL Methodology: Mass Spectrometry Oxymorphone (cutoff 40 ng/mL) Not detected Normal [facility] Comment on above: Result Comment: INTE RPRETIVE INFORMATION:Oxymorphone, U Positive Cutoff: 40 ng/mL Methodology: Mass Spectrometry Pain Management Drug Panel See Below Normal [facility] Comment on above: Result Comment: Meth odology: Qualitative Enzyme Immunoassay and Qualitative Liquid Chromatography-Tandem [...] developed and its performance characteristics determined by [employer]. It has not been cleared or approved by the [place] Food and Drug Administration. This test was performed in a CLIA certified laboratory and is intended for clinical purposes. PCP (cutoff 25 ng/mL) Negative Normal [facility] Comment on above: Result Comment: Pres umptive negative by immunoassay. Testing by mass spectrometry is available on request. INTERPRETIVE INFORMATION:Phencyclidine Screen, U Positive Cutoff: 25 ng/mL Methodology: Immunoassay Phentermine (cutoff 100 ng/mL) Not detected Normal [facility] Comment on above: Result Comment: INTE RPRETIVE INFORMATION:Phentermine, U Positive Cutoff: 100 ng/mL Methodology: Mass Spectrometry Pregabalin (cutoff 100 ng/mL) Not detected Normal [facility] Comment on above: Result Comment: INTE RPRETIVE INFORMATION:Pregabalin, U Positive Cutoff: 3,000 ng/mL Methodology: Mass Spectrometry Tapentadol (cutoff 100 ng/mL) Not detected Normal [facility] Comment on above: Result Comment: INTE RPRETIVE INFORMATION:Tapentadol, U Positive Cutoff: 100 ng/mL Methodology: Mass Spectrometry Awfybgfyyl-r-Vidn (cutoff 200 ng/mL) Not detected Normal [facility] Comment on above: Result Comment: INTE RPRETIVE INFORMATION:Wyxcwoiukl-n-Nqqb, U Positive Cutoff: 200 ng/mL Methodology: Mass Spectrometry Temazepam (cutoff 50 ng/mL) Not detected Normal [facility] Comment on above: Result Comment: INTE RPRETIVE INFORMATION:Temazepam, U Positive Cutoff: 50 ng/mL Methodology: Mass Spectrometry Tramadol (cutoff 200 ng/mL) PresumptivePOS Normal [facility] Comment on above: Result Comment: Pres umptive positive by immunoassay. Testing by mass spectrometry is available on request. INTERPRETIVE INFORMATION:Tramadol Screen, U Positive Cutoff: 100 ng/mL Methodology: Immunoassay Zolpidem (cutoff 20 ng/mL) Not detected Normal [facility] Comment on above: Result Comment: INTE RPRETIVE INFORMATION:Zolpidem, U Positive Cutoff: 20 ng/mL Methodology: Mass Spectrometry UR Microalbumin/Creatinine R atio Randomon 01-10-2025 Microalbumin/creatinine Ratio 388.4 mg/G Critically high 0.0-30.0 [facility] Comment on above: Performed By: #### U MACR #### [facility] [address] [place] [address] UR Creatinine Random 98.6 mg/dL Normal Not Establ [facility] Comment on above: Performed By: #### U MACR #### [facility] [address] [place] [address] UR Microalbumin Random 38.30 mg/dL Critically high Not Est abl [facility] Comment on above: Performed By: #### U MACR #### [facility] [address] [place] [address] Pathology study report docum entOrdered By: Maite Alexis on 12-14-2024 Pathology study [facility] Other Phone: SURGICAL PATHOLOGY REFERENCE LAB CONSULTon 12-14-2024 AP DISCLAIMER Normal [facility] Comment on above: Order Comment: Speci men Type: FORMALIN-FIXED PARAFFIN-EMBEDDED TISSUE SPECIMEN Ordering Facility: [facility] Address: [facility] [place] [address] Result Comment: Carmen Forman Test (LDT) Disclaimer: Performance characteristics of immunohistochemical, immunofluorescent, and chromogenic in-situ hybridization tests have been determined by the performing laboratory within [facility]'s Tom Yang Pathology and Laboratory Medicine Department ([facility], [facility], [facility], [facility], [facility], [facility], or [facility]) in a manner consistent with CLIA requirements. One or more of these tests may not have been cleared or approved by the FDA. [facility] is regulated under CLIA as qualified to perform high-complexity testing. These tests are used for clinical purposes. These should not be regarded as investigational or for research. Positive and negative controls stain appropriately. Performed By: #### L [id number] #### [facility] CLIA [id number] [address] [place] [address] OF [place] CASE REPORT Normal [facility] Comment on above: Order Comment: Speci men Type: FORMALIN-FIXED PARAFFIN-EMBEDDED TISSUE SPECIMEN Ordering Facility: [facility] Address: [address] [place], [place] [address] [id number] Result Comment: Surg [facility] Pathology Report Case: [id number] Authorizing Provider: Maite Alexis MD Collected: 12/14/2024 04:52 PM Ordering Location: [facility] Received: 12/14/2024 04:51 PM [facility] Pathologist: Daron Carroll MD Specimen: Block(s) and/or Slide(s), 11 SLIDES & 1 BLOCK [id number]; A3 Performed By: #### L [id number] #### [facility] CLIA [id number] [address] [place] [address] OF [place] CLINICAL HISTORY CONSULT REQUESTED [facility] Comment on above: Order Comment: Speci men Type: FORMALIN-FIXED PARAFFIN-EMBEDDED TISSUE SPECIMEN Ordering Facility: [facility] Address: [place] [address] Performed By: #### L [id number] #### [facility] CLIA [id number] [address] [place] [address] OF [place] DIAGNOSIS COMMENT Normal [facility] Comment on above: Order Comment: Speci men Type: FORMALIN-FIXED PARAFFIN-EMBEDDED TISSUE SPECIMEN Ordering Facility: [facility] Address: [facility] [address] Result Comment: This is a case of a 59-year-old [...] please do not hesitate to contact us, . 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 Lymph node, level 5, resection ([id number] C1; 12/08/2024): -Rare atypical cells. at 1603 EDT Performed By: #### L [id number] #### [facility] CLIA [id number] [address] [place] [address] FINAL PERFORMING LAB Normal [facility] Comment on above: Order Comment: Speci men Type: FORMALIN-FIXED PARAFFIN-EMBEDDED TISSUE SPECIMEN Ordering Facility: [facility] Address: [address] [place], [place] [address]ES [place] [id number] Result Comment: Diag nostic interpretation performed at: [facility], [address] [place] [address], Desk [place] [address] CLIA# [id number] Tortilla Maker: Jonah Guzman MD Performed By: #### L [id number] #### [facility] CLIA [id number] [address] [place] [address] [place] ECG 12 lead ECGon 12-10-2024 ECG 12 lead ECG [facility] [place] [address] Electrocardiograph Report Signed Patient: Cari Hale MR#: [id number] : 1965 Acct:[id number] Age/Sex: 59 / F ADM Date: 12/08/24 Loc: 4N Room: [address] [place] [address] Type: DIS IN Attending Dr: Mac Turner MD Ordering Provider: Luis Beaver DO Date of Service: 12/10/2406/26/302 ECG/ECG 12 lead ECG: chest pain Copies to: Test Reason : Blood Pressure : */* mmHG Vent. Rate : 113 BPM Atrial Rate : 113 BPM P-R Int : 152 ms QRS Dur : 74 ms QT Int : 350 ms P-R-T Axes : 70 13 114 degrees QTcB Int : 480 ms Sinus tachycardia with frequent premature ventricular complexes Nonspecific T wave abnormality Abnormal ECG Confirmed by Aida Ramos ([id number]) on 12/10/2024 10:06:16 PM Referred By: Electronically Signed By: Aida Ramos Transcribed By: MUS Signed By Aida Ramos MD [id number] Normal [facility] X-ray reportOrdered By: Jesse Martínez on 12-10-2024 Study report [facility] Main [place] [id number] XRay Report Signed Patient: Cari Hale MR#: [id number] : 1965 Acct:[id number] Age/Sex: 59 / F ADM Date: 5 Loc: 4N Room: [address] [place] [address] Type: ADM IN Attending Dr: Mac Turner MD Copies to: MD Mac Fregoso MD~ Ordering Provider: Shanika Hyman MD Date of Service: 12/10/24 XR/XR chest 1V portable: chest tube XR chest 1V portable 12/10/2024 12:54 PM SIGNS AND SYMPTOMS: Chest tube removal PROTOCOL: Frontal radiograph of the chest COMPARISON: 12/10/2024 FINDINGS: The trachea is midline. The heart and mediastinal structures are within normal limits. The left-sided chest tube has been removed. There is no residual pneumothorax. Subcutaneous emphysema is noted along the left chest wall. Airspace opacities are noted in the left lung base. The bony thorax is intact. XR/XR chest 1V portable IMPRESSION: The left-sided chest tube has been removed. There is no residual pneumothorax. Impression dictated by: Jesse Martínez M.D. 12/10/2024 2:41 PM Dictation Location: [facility]--17 Transcribed By: [facility] 12/10/24 1441 Dictated By: Jesse Martínez II, MD 12/10/24 1440 Signed By: 12/10/24 1441 [facility] Work Phone: Study report [facility] [place] [place] [address] XRay Report Signed Patient: Cari Hale MR#: [id number] : 1965 Acct:[id number] Age/Sex: 59 / F ADM Date: 5 Loc: Room: [address] [place] [address] Type: ADM IN Attending Dr: Mac Turner MD Copies to: MD Mac Fregoso MD~ Ordering Provider: Shanika Hyman MD Date of Service: 12/10/24 XR/XR chest 1V portable: chest tube, SOB XR chest 1V portable 12/10/2024 2:49 AM SIGNS AND SYMPTOMS: ^chest tube, SOB PROTOCOL: Frontal radiograph of the chest COMPARISON: 12/09/2024 FINDINGS: The trachea is midline. The heart and mediastinal structures are within normal limits. A left-sided chest tube is unchanged. Subcutaneous emphysema along theleft chest wall is unchanged. Similar airspace opacities noted at the left lungbase. There are remote posttraumatic deformities redemonstrated in the lateral aspect of the left clavicle. The bony thorax is intact. XR/XR chest 1V portable IMPRESSION: Unchanged chest. Impression dictated by: Jesse Martínez M.D. 12/10/2024 11:37 AM Dictation Location: [facility]17 Transcribed By: [facility] 12/10/24 1137 Dictated By: Jesse Martínez II, MD 12/10/24 1136 Signed By: 12/10/24 1137 [facility] Work Phone: XR chest 1V portableon 12-10 XR chest 1V portable [facility] Main [place] [address] [place] [address] XRay Report Signed Patient: Cari Hale MR#: [id number] [id number] : 1965 Acct:[id number] Age/Sex: 59 / F ADM Date: 12/08/24 Loc: Room: [address] [place] [address] Type: ADM IN Attending Dr: Mac Turner MD Copies to: MD Mac Fregoso MD Ordering Provider: Shanika Hyman MD Date of Service: 12/10/24 XR/XR chest 1V portable: chest tube XR chest 1V portable 12/10/2024 12:54 PM SIGNS AND SYMPTOMS: Chest tube removal PROTOCOL: Frontal radiograph of the chest COMPARISON: 12/10/2024 FINDINGS: The trachea is midline. The heart and mediastinal structures are within normal limits. The left- sided chest tube has been removed. There is no residual pneumothorax. Subcutaneous emphysema is noted along the left chest wall. Airspace opacities are noted in the left lung base. The bony thorax is intact. XR/XR chest 1V portable IMPRESSION: The left-sided chest tube has been removed. There is no residual pneumothorax. Impression dictated by: Jesse Martínez M.D. 12/10/2024 2:41 PM Dictation Location: [facility]17 Transcribed By: [facility] 12/10/24 1441 Dictated By: Jesse Martínez II, MD 12/10/24 1440 Signed By: 12/10/24 1441 Normal [facility] XR chest 1V portable [facility] [place] [place] [address] XRay Report Signed Patient: Cari Hale MR#: [id number] [id number] : 1965 Acct:[id number] Age/Sex: 59 / F ADM Date: 12/08/24 Loc: Room: [address] [place] [address] Type: ADM IN Attending Dr: Mac Turner MD Copies to: MD Mac Fregoso MD Ordering Provider: Shanika Hyman MD Date of Service: 12/10/24 XR/XR chest 1V portable: chest tube, SOB XR chest 1V portable 12/10/2024 2:49 AM SIGNS AND SYMPTOMS: chest tube, SOB PROTOCOL: Frontal radiograph of the chest COMPARISON: 12/09/2024 FINDINGS: The trachea is midline. The heart and mediastinal structures are within normal limits. A left- sided chest tube is unchanged. Subcutaneous emphysema along the left chest wall is unchanged. Similar airspace opacities noted at the left lung base. There are remote posttraumatic deformities redemonstrated in the lateral aspect of the left clavicle. The bony thorax is intact. XR/XR chest 1V portable IMPRESSION: Unchanged chest. Impression dictated by: Jesse Martínez M.D. 12/10/2024 11:37 AM Dictation Location: [place] [address] Transcribed By: [facility] 12/10/24 1137 Dictated By: Jesse Martínez II, MD 12/10/24 1136 Signed By: 12/10/24 1137 Normal [facility] Glucose Glucometer (BldC) [M ass/Vol]Ordered By: Mac Turner on 12-09-2024 Glucose [Mass/Vol] Capillary blood glucose measurement by glucometer (mass/volume) [facility] Comment on above: Random Glucose Refer ence Range is dependent on time and content of last meal. Glucose of more than 200 mg/dL in a nonstressed, ambulatory subject supports the diagnosis of Diabetes Mellitus. Glucose Poct Glucometerson 0 12-09-2024 Glucose [Mass/Vol] 195 mg/dL Normal [facility] Comment on above: Result Comment: [facility] Glucose Reference Range is dependent on time and content of last meal. Glucose of more than 200 mg/dL in a nonstressed, ambulatory subject supports the diagnosis of Diabetes Mellitus. PERFORMED BY: [place] [id number] PATHOLOGIST STUFFED CASING TIER ELEANOR HERNÁNDEZ M.D. Performed By: #### G LUMICHAEL #### Point of Care testing , X-ray reportOrdered By: Jesse Martínez on 12-09-2024 Study report [facility] Main [place] [address] [place] [address] XRay Report Signed Patient: Cari Hale MR#: [id number] : 1965 Acct:[id number] Age/Sex: 59 / F ADM Date: 5 Loc: Room: [address] [place] [address] Type: ADM IN Attending Dr: Mac Turner MD Copies to: MD Mac Fregoso MD~ Ordering Provider: Shanika Hyman MD Date of Service: 12/09/24 XR/XR chest 1V portable: chest tube XR chest 1V portable 12/09/2024 11:42 AM SIGNS AND SYMPTOMS: ^chest tube PROTOCOL: Frontal radiograph of the chest COMPARISON: 12/08/2024 FINDINGS: The trachea is midline. The heart and mediastinal structures are within normal limits. Chest tube is present with the tip at the left lung apex. No pneumothorax. Hazy opacities are noted near the left lung base similar to the prior exam. A small amount of subcutaneous emphysema is noted along the left chest wall similar to the prior exam. Remote posttraumatic deformities noted inthe distal clavicle on the left. The bony thorax is intact. XR/XR chest 1V portable IMPRESSION: Unchanged chest. Impression dictated by: Jesse Martínez M.D. 12/09/2024 12:54 PM Dictation Location: [facility]- Transcribed By: [facility] 12/09/24 1259 Dictated By: Jesse Martínez II, MD 12/09/24 1256 Signed By: 12/09/24 3425 [facility] Work Phone: XR chest 1V portableon 12-09 XR chest 1V portable [facility] Main [address] [address] XRay Report Signed Patient: Cari Hale MR#: [id number] 952 : 1965 Acct:[id number] Age/Sex: 59 / F ADM Date: 12/08/24 Loc: Room: [address] [place] [address] Type: ADM IN Attending Dr: Mac Turner MD Copies to: MD Mac Fregoso MD Ordering Provider: Shanika Hyman MD Date of Service: 12/09/24 XR/XR chest 1V portable: chest tube XR chest 1V portable 12/09/2024 11:42 AM SIGNS AND SYMPTOMS: chest tube PROTOCOL: Frontal radiograph of the chest COMPARISON: 12/08/2024 FINDINGS: The trachea is midline. The heart and mediastinal structures are within normal limits. Chest tube is present with the tip at the left lung apex. No pneumothorax. Hazy opacities are noted near the left lung base similar to the prior exam. A small amount of subcutaneous emphysema is noted along the left chest wall similar to the prior exam. Remote posttraumatic deformities noted in the distal clavicle on the left. The bony thorax is intact. XR/XR chest 1V portable IMPRESSION: Unchanged chest. Impression dictated by: Jesse Martínez M.D. 12/09/2024 12:54 PM Dictation Location: [place] [address] Transcribed By: [facility] 12/09/24 1254 Dictated By: Jesse Martínez II, MD 12/09/24 1250 Signed By: 12/09/24 1254 Normal [facility] ABO/Rh Retypeon 12-08-2024 ABO/RH Recheck Result Positive Normal [facility] Comment on above: Result Comment: PERF ORMED BY: [address] [address] PATHOLOGIST STUFFED CASING TIER ELEANOR HERNÁNDEZ M.D. Glucose Poct Glucometerson 0 12-08-2024 Commemt1 Glu2: Cleaned Meter Normal [facility] Comment on above: Result Comment: PERF ORMED BY: [facility] [address] [facility] [place] [address] PATHOLOGIST STUFFED CASING TIER ELEANOR HERNÁNDEZ M.D. Performed By: #### G LULS #### Point of Care testing , Glucose [Mass/Vol] 405 mg/dL Off scale high [facility] Comment on above: Result Comment: [place] om Glucose Reference Range is dependent on time and content of last meal. Glucose of more than 200 mg/dL in a nonstressed, ambulatory subject supports the diagnosis of Diabetes Mellitus. Performed By: #### G LULS #### Point of Care testing , Commemt1 Normal [facility] Comment on above: Result Comment: Glu2 : Will Repeat Test PERFORMED BY: [address] [place] [address] PATHOLOGIST STUFFED CASING TIER ELEANOR HERNÁNDEZ M.D. Performed By: #### G LULS #### Point of Care testing , Glucose [Mass/Vol] 388 mg/dL Normal [facility] Comment on above: Result Comment: [place] om Glucose Reference Range is dependent on time and content of last meal. Glucose of more than 200 mg/dL in a nonstressed, ambulatory subject supports the diagnosis of Diabetes Mellitus. Performed By: #### G LULS #### Point of Care testing , Commemt1 Normal [facility] Comment on above: Result Comment: Glu2 : WILL NOTIFY DR/CHRISTOPHER Performed By: #### G LULS #### Point of Care testing , Commemt2 Cleaned Meter Normal [facility] Comment on above: Result Comment: PERF ORMED BY: [facility] [address] [facility] [place] [address] PATHOLOGIST STUFFED CASING TIER ELEANOR HERNÁNDEZ M.D. Performed By: #### G LULS #### Point of Care testing , Glucose [Mass/Vol] 458 mg/dL Off scale high [facility] Comment on above: Result Comment: [place] om Glucose Reference Range is dependent on time and content of last meal. Glucose of more than 200 mg/dL in a nonstressed, ambulatory subject supports the diagnosis of Diabetes Mellitus. Performed By: #### G LULS #### Point of Care testing , Commemt1 Glu2: Cleaned Meter Normal [facility] Comment on above: Result Comment: PERF ORMED BY: [place] [address] PATHOLOGIST STUFFED CASING TIER ELEANOR HERNÁNDEZ M.D. Performed By: #### G LULS #### Point of Care testing , Glucose [Mass/Vol] 178 mg/dL Normal [facility] Comment on above: Result Comment: [facility] Glucose Reference Range is dependent on time and content of last meal. Glucose of more than 200 mg/dL in a nonstressed, ambulatory subject supports the diagnosis of Diabetes Mellitus. Performed By: #### G LULS #### Point of Care testing , HCG ( test) Zeeshan ramirez Ql (U)Ordered By: Tom Sunshine on 12-08-2024 HCG ( test) Ql (U) Urine human chorionic gonadotropin (hCG) detection by immunoassay [facility] HCG,Urineon 12-08-2024 Beta HCG ( test) Ql (U) Negative Normal [facility] Comment on above: Result Comment: PERF ORMED BY: [place] [address] PATHOLOGIST STUFFED CASING TIER ELEANOR HERNÁNDEZ M.D. Performed By: #### U HCG #### [address] 12-08-2024 L -- ---- Specimen: [id number] Received: 12/08/24 Status: KAYLAN Chacon Num: [id number] Spec Type: Surgical Subm Dr: Mac Turner MD Tissues: A Lung - Wedge Biopsy (L UPPER LOBE WEDGE) B Lymph Node - Biopsy (Needle or Incisional) (LEVEL 7 LYMPH NODE) C Lymph Node - Biopsy (Needle or Incisional) (LEVEL 5 LYMPH NODE) Procedures: HE, Gross/Micro L5, Gross/Micro L4/2 ---- Age/ Patient Sex Location Account Attending Physician ---- Cari Hale 59/F 4N [id number] Mac Turner MD ---- SPEC NUM: [id number] RECD: 12/08/24 STATUS: KAYLAN INES NUM: [id number] NIKI: 12/08/24-[address]: Mac Turner MD ENTERED: 12/08/24-[address]: GRISEL TYPE: Surgical DEPT: S ENTERED BY: [id number] RECV BY: [id number] ORDERED: , Gross/Micro L5, Gross/Micro L4/2 ORDERED: , Gross/Micro L5, Gross/Micro L4/2 To correct pT category from pT1c to pT2a in Cancer Case Summary per tumor board on 03/23/2025. CANCER CASE SUMMARY Procedure: Wedge resection Laterality: Left Tumor Focality: Single focus Tumor Site: Upper lobe Tumor Size: 2.2 x2 x 1.8 cm Histologic Type: Invasive adenocarcinoma, predominantly micropapillary adenocarcinoma. Histologic Patterns: Not applicable Histologic Grade: G2-G3, moderately to poorly differentiated (see note) Spread Through Air Spaces: Present Visceral Pleura Invasion: Present Direct Invasion of Adjacent Structures: Not identified Treatment Effect: No known presurgical therapy Lymphovascular Invasion: Present Margin Status for Invasive Carcinoma: Pleural margin involved by tumor Margin Status for Non-Invasive Tumor: Hemorrhage Regional Lymph Node Status: Tumor present in regional lymph node ? - Number of Lymph Nodes with Tumor: 2 ? - Exact number: 6 ? - Jennifer Sites with Tumor: Level 7 and intrapulmonary lymph node ? - Extranodal Extension: Focally present in level 7 lymph node ? - Size of Largest Metastatic Deposit: 3 mm ---- Specimen: [id number] Received: 12/08/24 Status: KAYLAN Williamsonbilly Num: [id number] Spec Type: Surgical Subm Dr: Mac Turner MD Tissues: A Lung - Wedge Biopsy (L UPPER LOBE WEDGE) B Lymph Node - Biopsy (Needle or Incisional) (LEVEL 7 LYMPH NODE) C Lymph Node - Biopsy (Needle or Incisional) (LEVEL 5 LYMPH NODE) Procedures: /, Gross/Micro L5, Gross/Micro L4/2 ---- Patient: Cari Hale [id number] (Continued) ---- Specimen: [id number] Received: 12/08/24 (Continued) Signed (signature on file) Maite Alexis MD 12/14/24 1418 ---- Specimen: [id number] Received: 12/08/24 Status: KAYLAN Ines Num: [id number] Spec Type: Surgical Subm Dr: Mac Turner MD Tissues: A Lung - Wedge Biopsy (L UPPER LOBE WEDGE) B Lymph Node - Biopsy (Needle or Incisional) (LEVEL 7 LYMPH NODE) C Lymph Node - Biopsy (Needle or Incisional) (LEVEL 5 LYMPH NODE) Procedures: MOJGAN/Jerry, Gross/Micro L5, Gross/Micro L4/2 ---- Patient: Cari Hale [id number] (Continued) ---- Specimen: [id number] Received: 12/08/24-1031 (Continued) Distant Site(s) Involved: Not applicable Pathology Stage Classification (pTNM, AJCC 8th Edition) ?? pT2a: Tumor greater than 3 cm but less than or equal to 4 cm in greatest dimension OR Tumor less than or equal to 4 cm in greatest dimension with one or more of the following features: Invades visceral pleura; or Invades an adjacent lobe; or Involves main bronchus (up to but not including the emely) or associated with atelectasis or obstructive pneumonitis, extending to the hilar regions, involving either part of or the entire lung ? pN2a: Tumor involvement of a single ipsilateral mediastinal jennifer station or of the subcarinal jennifer station ? ?pM: Not applicable Addendum Signed (signature on file) Jace Brown MD 03/23/25 0834 ---- Supplemental Report Addendum 6 Entered: 03/26/25-9044 To issue FISH TargetGene Analysis and PD-L1 Keytruda reports from [facility]. Please scanned reports. FISH TargetGene Analysis: (more content not included)... Normal [facility] No Panel InformationOrdered By: Mac Turner on 12-08-2024 Bedside Glucose Comment Glu2: cleaned meter [facility] Bedside Glucose #2 Comment Cleaned meter [facility] X-ray reportOrdered By: Rodriguez Mondragon on 12-08-2024 Study report [facility] [place] [place] [address] XRay Report Signed Patient: Cari Hale MR#: [id number] : 1965 Acct:[id number] Age/Sex: 59 / F ADM Date: 5 Loc: Room: [address] [place] [address] Type: ADM IN Attending Dr: Mac Turner MD Copies to: Mac Turner MD~ Ordering Provider: Mac Turner MD Date of Service: 12/08/24 XR/XR chest 1V portable: Chest tube placement SINGLE VIEW CHEST CLINICAL HISTORY: Chest tube placement COMPARISON: None FINDINGS: Left-sided chest tube is in place with subcutaneous emphysematous changes. No pneumothorax is seen. Elevation left hemidiaphragm. Right lung appears clear. No free air. XR/XR chest 1V portable IMPRESSION: LEFT-SIDED CHEST TUBE IS IN PLACE WITHOUT PNEUMOTHORAX. Impression dictated by: Ozzy Mondragon Jr., D.OKamar 12/08/2024 11:44 AM Dictation Location: [place] [address] Transcribed By: [facility] 12/08/24 1144 Dictated By: Ozzy Mondragon Jr, DO 12/08/24 1143 Signed By: 12/08/24 1144 [facility] XR chest 1V portableon 12-08 XR chest 1V portable [facility] [place] [place] [address] XRay Report Signed Patient: Cari Hale MR#: [id number] 952 : 1965 Acct:[id number] Age/Sex: 59 / F ADM Date: 12/08/24 Loc: Room: [address] [place] [address] Type: ADM IN Attending Dr: Mac Turner MD Copies to: Mac Turner MD Ordering Provider: Mac Turner MD Date of Service: 12/08/24 XR/XR chest 1V portable: Chest tube placement SINGLE VIEW CHEST CLINICAL HISTORY: Chest tube placement COMPARISON: None FINDINGS: Left-sided chest tube is in place with subcutaneous emphysematous changes. No pneumothorax is seen. Elevation left hemidiaphragm. Right lung appears clear. No free air. XR/XR chest 1V portable IMPRESSION: LEFT-SIDED CHEST TUBE IS IN PLACE WITHOUT PNEUMOTHORAX. Impression dictated by: Ozzy Mondragon Jr., D.O. 12/08/2024 11:44 AM Dictation Location: [place] [address] Transcribed By: [facility] 12/08/24 1144 Dictated By: Ozzy Mondragon Jr, DO 12/08/24 1143 Signed By: 12/08/24 1144 Normal [facility] Basic Metabolic Panelon 05 Anion gap [Moles/Vol] 14.0 mmol/L Normal 6.0-15.0 [facility] Comment on above: Performed By: #### G LULS #### Point of Care testing , Calcium [Mass/Vol] 9.5 mg/dL Normal 8.6-10.3 [facility] Comment on above: Result Comment: PERF ORMED BY: [facility] [address] [address] PATHOLOGIST STUFFED CASING TIER ELEANOR HERNÁNDEZ M.D. Performed By: #### G LULS #### Point of Care testing , Chloride [Moles/Vol] 99 mmol/L Normal 98-107 [facility] Comment on above: Performed By: #### G LULS #### Point of Care testing , CO2 [Moles/Vol] 26.1 mmol/L Normal 21.0-31.0 [facility] Comment on above: Performed By: #### G LULS #### Point of Care testing , Creatinine [Mass/Vol] 0.90 mg/dL Normal 0.60-1.20 [facility] Comment on above: Performed By: #### G LULS #### Point of Care testing , GFR/1.73 sq M.predicted MDRD (S/P/Bld) [Vol rate/Area] mL/min/{1.73_m2} Normal [facility] Comment on above: Performed By: #### G LULS #### Point of Care testing , Glucose [Mass/Vol] 121 mg/dL High 70-100 [facility] Comment on above: Result Comment: [facility] Glucose Reference Range is dependent on time and content of last meal. Glucose of more than 200 mg/dL in a nonstressed, ambulatory subject supports the diagnosis of Diabetes Mellitus. ADA recommended reference range Performed By: #### G LULS #### Point of Care testing , Potassium [Moles/Vol] 4.1 mmol/L Normal 3.5-5.1 [facility] Comment on above: Performed By: #### G LULS #### Point of Care testing , Sodium [Moles/Vol] 135 mmol/L Low 136-145 [facility] Comment on above: Performed By: #### G LULS #### Point of Care testing , Urea nitrogen [Mass/Vol] 14 mg/dL Normal 7-25 [facility] Comment on above: Performed By: #### G LULS #### Point of Care testing , Basophils Auto (Bld) [#/Vol] Ordered By: Mac Turner on 12-05-2024 Basophils (Bld) [#/Vol] Automated basoph il count 0.0-0.2 [facility] Basophils/100 WBC Auto (Bld) Ordered By: Mac Turner on 12-05-2024 Basophils/100 WBC (Bld) Automated basophil % . [facility] Calcium [Mass/volume] in Ser um or PlasmaOrdered By: Mac Turner on 12-05-2024 Calcium [Mass/Vol] Calcium [Mass/volume ] in Serum or Plasma 8.6-10.3 [facility] Carbon dioxide, total [Moles /volume] in Serum or PlasmaOrdered By: Mac Turner on 12-05-2024 CO2 [Moles/Vol] Carbon dioxide, tota l [Moles/volume] in Serum or Plasma 21.0-31.0 [facility] Chloride [Moles/volume] in S mervat or PlasmaOrdered By: Mac Turner on 12-05-2024 Chloride [Moles/Vol] Chloride [Moles/volume] in Serum or Plasma 98-107 [facility] Complete Blood Count Auto Di ffon 12-05-2024 Basophils (Bld) [#/Vol] 0.1 10*3/uL Normal 0.0-0.2 [facility] Comment on above: Result Comment: PERF ORMED BY: [facility] [address] [address] PATHOLOGIST STUFFED CASING TIER ELEANOR HERNÁNDEZ M.D. Performed By: #### G LULS #### Point of Care testing , Basophils/100 WBC (Bld) 0.7 % Normal . [facility] Comment on above: Performed By: #### G LULS #### Point of Care testing , Eosinophils (Bld) [#/Vol] 0.0 10*3/uL Normal 0.0-0.45 [facility] Comment on above: Performed By: #### G LULS #### Point of Care testing , Eosinophils/100 WBC (Bld) 0.3 % Normal . [facility] Comment on above: Performed By: #### G LULS #### Point of Care testing , Erythrocyte distribution width (RBC) [Ratio] 14.3 % Normal 11.9-15.3 [facility] Comment on above: Performed By: #### G LULS #### Point of Care testing , Hematocrit (Bld) [Volume fraction] 36.4 % Normal 34.0-46.4 [facility] Comment on above: Performed By: #### G LULS #### Point of Care testing , Hemoglobin (Bld) [Mass/Vol] 12.0 g/dL Normal 11.8-15.4 [facility] Comment on above: Performed By: #### G LULS #### Point of Care testing , Lymphocytes (Bld) [#/Vol] 2.3 10*3/uL Normal 1.00-4.8 [facility] Comment on above: Performed By: #### G LULS #### Point of Care testing , Lymphocytes/100 WBC (Bld) 16.9 % Normal . [facility] Comment on above: Performed By: #### G LULS #### Point of Care testing , MCH (RBC) [Entitic mass] 30.6 pg Normal 24.7-34.3 [facility] Comment on above: Performed By: #### G LULS #### Point of Care testing , MCV (RBC) [Entitic vol] 92.4 fL Normal 80-100 [facility] Comment on above: Performed By: #### G LULS #### Point of Care testing , Mean Corpuscular HGB Conc 33.1 g/dL Normal 32.0-35.0 [facility] Comment on above: Performed By: #### G LULS #### Point of Care testing , Monocytes (Bld) [#/Vol] 0.8 10*3/uL Normal 0.0-0.8 [facility] Comment on above: Performed By: #### G LULS #### Point of Care testing , Monocytes/100 WBC (Bld) 5.6 % Normal . [facility] Comment on above: Performed By: #### G LULS #### Point of Care testing , Neutrophils (Bld) [#/Vol] 10.5 10*3/uL High 1.8-7.7 [facility] Comment on above: Performed By: #### G LULS #### Point of Care testing , Neutrophils/100 WBC (Bld) 76.5 % Normal . [facility] Comment on above: Performed By: #### G LULS #### Point of Care testing , NRBC% 0.1 /100{WBC} Normal 0-0.5 [facility] Comment on above: Performed By: #### G LULS #### Point of Care testing , Platelet mean volume (Bld) [Entitic vol] 7.5 fL Normal 6.3-10.7 [facility] Comment on above: Performed By: #### G LULS #### Point of Care testing , Platelets (Bld) [#/Vol] 353 10*3/uL Normal 150-450 [facility] Comment on above: Performed By: #### G LULS #### Point of Care testing , RBC (Bld) [#/Vol] 3.94 10*6/uL Normal 3.60-5.00 [facility] Comment on above: Performed By: #### G LULS #### Point of Care testing , WBC (Bld) [#/Vol] 13.8 10*3/uL High 3.8-11.6 [facility] Comment on above: Performed By: #### G LULS #### Point of Care testing , Creatinine [Mass/volume] in Serum or PlasmaOrdered By: Mac Turner on 12-05-2024 Creatinine [Mass/Vol] Creatinine [Mass/volume] in Serum or Plasma 0.60-1.20 [facility] Eosinophils Auto (Bld) [#/Vo l]Ordered By: Mac Turner on 12-05-2024 Eosinophils (Bld) [#/Vol] Automated eosinophil count 0.0-0.45 [facility] Eosinophils/100 WBC Auto (Bl d)Ordered By: Mac Turner on 12-05-2024 Eosinophils/100 WBC (Bld) Automated eosinophil % . [facility] Erythrocyte distribution wid th Auto (RBC) [Ratio]Ordered By: Mac Turner on 12-05-2024 Erythrocyte distribution width (RBC) [Ratio] Erythrocyte distribution width [Ratio] by Automated count 11.9-15.3 [facility] Glucose [Mass/volume] in Ser um or PlasmaOrdered By: Mac Turner on 12-05-2024 Glucose [Mass/Vol] Glucose [Mass/volume ] in Serum or Plasma High 70-100 [facility] Comment on above: ADA recommended refe rence rangeRandom Glucose Reference Range is dependent on time and content of last meal. Glucose of more than 200 mg/dL in a nonstressed, ambulatory subject supports the diagnosis of Diabetes Mellitus. Hematocrit Auto (Bld) [Volum e fraction]Ordered By: Mac Turner on 12-05-2024 Hematocrit (Bld) [Volume fraction] Hematocrit [Volume Fraction] of Blood by Automated count 34.0-46.4 [facility] Hemoglobin [Mass/volume] in BloodOrdered By: Mac Turner on 12-05-2024 Hemoglobin (Bld) [Mass/Vol] Hemoglobin [Mass/volume] in Blood 11.8-15.4 [facility] Leukocytes [#/volume] correc andrew for nucleated erythrocytes in Blood by Automated counOrdered By: Mac Turner on 12-05-2024 WBC corrected for nucl RBC Auto (Bld) [#/Vol] Leukocytes [#/volume] corrected for nucleated erythrocytes in Blood by Automated coun High 3.8-11.6 [facility] Lymphocytes Auto (Bld) [#/Vo l]Ordered By: Mac Turner on 12-05-2024 Lymphocytes (Bld) [#/Vol] Lymphocytes [#/volume] in Blood by Automated count 1.00-4.8 [facility] Lymphocytes/100 WBC Auto (Bl d)Ordered By: Mac Turner on 12-05-2024 Lymphocytes/100 WBC (Bld) Lymphocytes/100 leukocytes in Blood by Automated count . [facility] MCH Auto (RBC) [Entitic mass ]Ordered By: Mac Turner on 12-05-2024 MCH (RBC) [Entitic mass] MCH [Entitic mass] by Automated count 24.7-34.3 [facility] MCHC Auto (RBC) [Mass/Vol]Or dered By: Mac Turner on 12-05-2024 MCHC (RBC) [Mass/Vol] MCHC [Mass/volume] by Automated count 32.0-35.0 [facility] MCV Auto (RBC) [Entitic vol] Ordered By: Mac Turner on 12-05-2024 MCV (RBC) [Entitic vol] MCV [Entitic vol ume] by Automated count 80-100 [facility] Monocytes Auto (Bld) [#/Vol] Ordered By: Mac Turner on 12-05-2024 Monocytes (Bld) [#/Vol] Automated blood monocyte count 0.0-0.8 [facility] Monocytes/100 WBC Auto (Bld) Ordered By: Mac Turner on 12-05-2024 Monocytes/100 WBC (Bld) Automated monocyte % . [facility] Neutrophils Auto (Bld) [#/Vo l]Ordered By: Mac Turner on 12-05-2024 Neutrophils (Bld) [#/Vol] Neutrophils [#/volume] in Blood by Automated count High 1.8-7.7 [facility] Neutrophils/100 WBC Auto (Bl d)Ordered By: Mac Turner on 12-05-2024 Neutrophils/100 WBC (Bld) Automated neutrophil % . [facility] No Panel InformationOrdered By: Mac Turner on 12-05-2024 Estimated GFR (CKD-EPI) > 60.0 mL/Min [facility] Creatinine Clearance (Chem N/A [facility] Nucleated erythrocytes [Pres ence] in Blood by Automated countOrdered By: Mac Turner on 12-05-2024 Nucleated RBC Auto Ql (Bld) Nucleated erythrocytes [Presence] in Blood by Automated count 0-0.5 [facility] PST Type and Screenon 2024 ABO and Rh group Nom (Bld) Blood group A Rh(D) positive Normal [facility] Comment on above: Order Comment: Date of Surgery: [id number] Result Comment: PERF ORMED BY: [facility] [address] [place] [address] PATHOLOGIST STUFFED CASING TIER ELEANOR HERNÁNDEZ M.D. Platelet mean volume Auto (B ld) [Entitic vol]Ordered By: Mac Turner on 12-05-2024 Platelet mean volume (Bld) [Entitic vol] Platelet mean volume [Entitic volume] in Blood by Automated count 6.3-10.7 [facility] Platelets Auto (Bld) [#/Vol] Ordered By: Mac Turner on 12-05-2024 Platelets (Bld) [#/Vol] Platelets [#/vol ume] in Blood by Automated count 150-450 [facility] Potassium [Moles/volume] in Serum or PlasmaOrdered By: Mac Turner on 12-05-2024 Potassium [Moles/Vol] Potassium [Moles/volume] in Serum or Plasma 3.5-5.1 [facility] RBC Auto (Bld) [#/Vol]Ordere d By: Mac Turner on 12-05-2024 RBC (Bld) [#/Vol] Erythrocytes [#/volume] in Blood by Automated count 3.60-5.00 [facility] Serum or plasma anion gap de terminationOrdered By: Mac Turner on 12-05-2024 Anion gap [Moles/Vol] Serum or plasma an ion gap determination 6.0-15.0 [facility] Sodium [Moles/volume] in Ser um or PlasmaOrdered By: Mac Turner on 12-05-2024 Sodium [Moles/Vol] Sodium [Moles/volume ] in Serum or Plasma Low 136-145 [facility] Urea nitrogen [Mass/volume] in Serum or PlasmaOrdered By: Mac Turner on 12-05-2024 Urea nitrogen [Mass/Vol] Urea nitrogen [Mass/volume] in Serum or Plasma 7-25 [facility] WBC Auto (Bld) [#/Vol]Ordere d By: Mac Turner on 12-05-2024 WBC (Bld) [#/Vol] Leukocytes [#/volume ] in Blood by Automated count High 3.8-11.6 [facility] Glucose Glucometer (BldC) [M ass/Vol]Ordered By: Katarzyna Castro on 11-17-2024 Glucose [Mass/Vol] Capillary blood glucose measurement by glucometer (mass/volume) [facility] Comment on above: Random Glucose Refer ence Range is dependent on time and content of last meal. Glucose of more than 200 mg/dL in a nonstressed, ambulatory subject supports the diagnosis of Diabetes Mellitus. Glucose Poct Glucometerson 0 11-17-2024 Glucose [Mass/Vol] 72 mg/dL Normal [facility] Comment on above: Result Comment: [place] om Glucose Reference Range is dependent on time and content of last meal. Glucose of more than 200 mg/dL in a nonstressed, ambulatory subject supports the diagnosis of Diabetes Mellitus. PERFORMED BY: [address] [address] PATHOLOGIST STUFFED CASING TIER ELEANOR HERNÁNDEZ M.D. Performed By: #### G LULS #### Point of Care testing , Commemt1 Normal [facility] Comment on above: Result Comment: Glu2 : Will Repeat Test PERFORMED BY: [facility] [address] [facility] [place] [address] PATHOLOGIST STUFFED CASING TIER ELEANOR HERNÁNDEZ M.D. Performed By: #### G LULS #### Point of Care testing , Glucose [Mass/Vol] 59 mg/dL Off scale low [facility] Comment on above: Result Comment: [place] om Glucose Reference Range is dependent on time and content of last meal. Glucose of more than 200 mg/dL in a nonstressed, ambulatory subject supports the diagnosis of Diabetes Mellitus. Performed By: #### G LULS #### Point of Care testing , Commemt1 Normal [facility] Comment on above: Result Comment: Glu2 : Will Repeat Test PERFORMED BY: [place] [address] PATHOLOGIST STUFFED CASING TIER ELEANOR HERNÁNDEZ M.D. Performed By: #### G LULS #### Point of Care testing , Glucose [Mass/Vol] 50 mg/dL Off scale low [facility] Comment on above: Result Comment: [place] om Glucose Reference Range is dependent on time and content of last meal. Glucose of more than 200 mg/dL in a nonstressed, ambulatory subject supports the diagnosis of Diabetes Mellitus. Performed By: #### G LULS #### Point of Care testing , Commemt1 Normal [facility] Comment on above: Result Comment: Glu2 : Will Repeat Test PERFORMED BY: [place] [address] PATHOLOGIST STUFFED CASING TIER ELEANOR HERNÁNDEZ M.D. Performed By: #### G LULS #### Point of Care testing , Glucose [Mass/Vol] 48 mg/dL Off scale low [facility] Comment on above: Result Comment: [place] Glucose Reference Range is dependent on time and content of last meal. Glucose of more than 200 mg/dL in a nonstressed, ambulatory subject supports the diagnosis of Diabetes Mellitus. Performed By: #### G LULS #### Point of Care testing , NM german perf SPECT rest stron 11-17-2024 NM german perf SPECT rest str [facility] Main [place] [id number] Nuclear Medicine Report Signed Patient: Cari Hale MR#: [id number] 952 : 1965 Acct:[id number] Age/Sex: 59 / F ADM Date: 11/17/24 Loc: [place] Room: Type: [facility] Attending Dr: Katarzyna Castro MD Copies to: MD Katarzyna Crockett Ordering Provider: Katarzyna Castro Date of Service: 11/17/24 NM/NM german perf SPECT rest str: Z01.818 REFERRING PHYSICIAN: Katarzyna Castro MD REASON FOR STUDY: Shortness of breath and preoperative risk assessment. PROCEDURE: The patient underwent 1-day rest/stress protocol. Rest images obtained by injecting 6.6 mCi of Cardiolite. Stress images obtained by injecting 18.6 mCi of Cardiolite. Subsequently, gated SPECT and ejection fraction studies were performed. IMAGING RESULT: This appears to be a good study. It appears to be fairly normal. There is no clear pattern of ischemia or myocardial infarction. Left ventricular ejection fraction appears normal, calculated at 74%. TID index is normal at 0.87. CONCLUSION: 1. Normal myocardial perfusion study. 2. No ischemia or myocardial infarction. 3. Normal left ventricular systolic function and wall motion. 4. No previous study available for comparison. Transcribed By: ROXANNE 11/17/24 193 Dictated By: Roseanne Nguyen MD 11/17/24 1831 Signed By: 11/18/24 0640 Normal [facility] No Panel InformationOrdered By: Kaatrzyna Castro on 11-17-2024 Bedside Glucose Comment See comment [facility] Comment on above: Glu2: Will Repeat Te st STR cardiac stress/lexiscano n 11-17-2024 STR cardiac stress/lexiscan [facility] Main [place] [address] [place] [address] Cardiac Stress Test Signed Patient: Cari Hale MR#: [id number] 952 : 1965 Acct:[id number] Age/Sex: 59 / F ADM Date: 11/17/24 Loc: [place] Room: Type: [facility] Attending Dr: Katarzyna Castro MD Copies to: MD Katarzyna Crockett Ordering Provider: Katarzyna Castro Date of Service: 11/17/24 STR/STR cardiac stress/lexiscan: Pre Op REFERRING PHYSICIAN: Katarzyna Castro MD REASON FOR STUDY: Preoperative risk assessment. PROCEDURE: The patient underwent Lexiscan myocardial perfusion study. The patient was injected with 0.4 mg of Lexiscan, following which no symptoms reported. Blood pressure and heart response to Lexiscan was physiologic. Baseline ECG showed normal sinus rhythm with occasional PVCs. Following Lexiscan, no changes were seen. CONCLUSION: 1. Lexiscan Cardiolite stress test without diagnostic ST-T changes for ischemia. 2. No provoked chest pain or arrhythmia. 3. Appropriate hemodynamic response to Lexiscan. 4. Myocardial perfusion study will be dictated separately. Transcribed By: NTS 11/17/24 1558 Dictated By: Roseanne Nguyen MD 11/17/24 1321 Signed By: 11/17/24 1621 Normal [facility]LY [facility], 1928–1983 echo transthoracicon FORMERLY [facility], 1928–1983 echo transthoracic [facility] Main [place] [address] [place] [address] Echocardiogram Signed Patient: Cari Hale MR#: [id number] 952 : 1965 Acct:[id number] Age/Sex: 59 / F ADM Date: 11/16/24 Loc: [place] Room: Type: [facility] Attending Dr: Renate Diallo DO Ordering Provider: Katarzyna Castro Date of Service: 11/16/24/ [facility], 1928–1983/[facility], 1928[facility]1983 echo transthoracic: Ischemic Cardiomyopathy. CAD. Chest pain. Dyspnea. Copies to: MD Katarzyna Crockett Weight: 132 lb Performed By: Yamini Moe RDCS BSA: 1.6 m2 BP: 123/78 mmHg HR: 100 Reason For Study: Ischemic Cardiomyopathy. CAD. Chest pain. Dyspnea. History: Angioplasty. Smoker. DM. Interpretation Summary Ejection Fraction = 60-65%. The left ventricular size, thickness and function are normal A variety of Doppler measurements indicate impaired left ventricular relaxation, which is associated with grade I/IV or mild diastolic dysfunction. There is no comparison study available. Procedure/Quality: A two-dimensional transthoracic echocardiogram with color flow and Doppler was performed. The study was technically good in quality. Left Ventricle: The left ventricular size, thickness and function are normal. Ejection Fraction = 60-65%. A variety of Doppler measurements indicate impaired left ventricular relaxation, which is associated with grade I/IV or mild diastolic dysfunction. Left Atrium: The left atrium appears normal in size. The atrial septum appears normal. Right Atrium: The right atrium appears normal in size. Right Ventricle: The right ventricular size, thickness and function are normal. Aortic Valve: The aortic valve is normal in structure and function. No aortic regurgitation is present. Mitral Valve: The mitral valve is normal in structure and function. There is no mitral regurgitation noted. Tricuspid Valve: The tricuspid valve is normal in structure and function. No tricuspid regurgitation. Pulmonic Valve: The pulmonic valve is normal in structure and function. Arteries: The aortic root is normal size. Pericardium/Pleura: No pericardial effusion seen. There is no pleural effusion. IVC/Hepatic Veins: The inferior vena cava is normal in size, with a normal collapsibility index. Measurements with Normals IVSd: 0.70 cm (0.7-1.1 cm)LVIDd: 4.3 cm (3.7-5.4 cm) LVPWd: 0.78 cm (0.7-1.1 cm)LVIDs: 2.9 cm (2.3-3.6 cm) LA dimension: 2.9 cm (2.3-4.0 cm)Ao root diam: 2.7 cm(2.0-3.6 cm) asc Aorta Diam: 3.0 cm(2.1-3.4cm) Doppler with Normals LV V1 max: 114.9 cm/sec (0.7-1.7m/s)MV E max cassia: 74.4 cm/sec(0.8-1.3m/s) MV A max cassia: 123.6 cm/sec(0.0-0.0m/s) MV E/A: 0.60 (<1.5) MMode/2D Measurements Calculations TAPSE: 1.7 cm FS: 32.5 % Ao root area: LVOT diam: 2.0 cm RV S Cassia: EDV(Teich): 5.5 cm2 LVOT area: 3.0 cm2 10.6 cm/sec 81.5 ml ESV(Teich): 31.6 ml EF(Teich): 61.2 % __ LVLd ap4: 7.2 cm SV(MOD-sp4): LAV(MOD-sp4): LA A2 area: 13.3 cm2 EDV(MOD-sp4): 31.3 ml 18.3 ml 50.4 ml LAV(MOD-sp2): LA A4 area: 9.9 cm2 LVLs ap4: 6.0 cm 29.1 ml LA length (vol): ESV(MOD-sp4): 4.3 cm 19.1 ml LA vol: 25.8 ml EF(MOD-sp4): 62.1 % LA vol index: 16.4 ml/m2 Doppler Measurements Calculations MV dec time: MV V2 max: E/E' lat: 9.4 MV dec slope: 0.26 sec 112.5 cm/sec E/E' med: 9.8 MV max P.1 mmHg 289.4 cm/sec2 MV V2 mean: 74.5 cm/sec MV mean P.6 mmHg MV V2 VTI: 28.1 cm MVA(VTI): 2.3 cm2 __ Ao V2 max: LV V1 max PG: RAP systole: 129.0 cm/sec 5.3 mmHg 3.0 mmHg Ao max P.7 mmHgLV V1 mean PG: Ao mean P.9 mmHg 3.8 mmHg LV V1 mean: Ao V2 mean: 81.0 cm/sec 94.1 cm/sec LV V1 VTI: 21.2 cm Ao V2 VTI: 23.1 cm JUAN RAMON(I,D): 2.8 cm2 JUAN RAMON(V,D): 2.7 cm2 Measurements from QLAB CI (): ED Mass (HM): LAEF (): 64.0 % BSA (): 1.6 m2 80.0 grams 2.0 l/min/m2 __ ALLA (): LAVmax (): LAVmin (): Pat Height (HM): 23.0 ml/m2 36.0 ml 13.0 ml 154.0 cm __ Pat Weight (): 59.9 kg QLAB Heart Model EDV ()_phl: 61.0 ml EF ()_phl: 55.0 % ED Current ()_phl: 60.0 % ESV ()_phl: 27.0 ml HR ()_phl: 94.0 BPMES Current ()_phl: 30.0 % LV Length ED ()_phl: 71.0 mmSV ()_phl: 33.0 ml ED Default ()_phl: 60.0 % LV Length ES ()_phl: 58.0 mm ES Default (HM)_phl: 30.0 % Transcribed By: SCV Performed At: 11/16/24 1110 Signed By: Roseanne Nguyen MD 11/16/24 1302 Normal [facility] MM special view LT w/CADon 0 11-16-2024 MM special view LT w/CAD [facility] Main [place] [address] [place] [address] Ultrasound Report Signed Patient: Cari Hale MR#: [id number] 952 : 1965 Acct:[id number] Age/Sex: 59 / F ADM Date: 11/16/24 Loc: [place] Room: Type: [facility] Attending Dr: Renate Diallo DO Ordering Provider: Renate Diallo DO Date of Service: 11/16/24 MM/MM special view LT w/CAD: R92.8 ([id number]) US/US breast LT complete: R92.8 Copies to: Renate Diallo DO LEFT Diagnostic Full Field digital mammogram with 3-D imaging. Full field digital CC and MLO imaging performed. CAD utilized. COMPARISON: Abnormality of the left breast anteriorly demonstrating 3 cm region of architectural distortion. Patient has history of lumpectomy of the left breast 06/19/2010. HISTORY: Follow-up assessment of anterior left breast abnormality BREAST COMPOSITION: Scattered fibroglandular densities of the breast parenchyma identified BREAST CALCIFICATIONS: Benign calcifications present. VASCULAR CALCIFICATIONS: None ARCHITECTURAL DISTORTION: Architectural distortion identified in the superior anterior portion of the left breast. This likely represents lumpectomy changes. No additional region of architectural distortion identified. BREAST NODULE: None AXILLARY LYMPH NODES: Normal POSTSURGICAL CHANGES: Left breast lumpectomy A targeted left breast ultrasound performed. Echogenic tissue identified. No discrete mass identified. US/US breast LT complete IMPRESSION: The region of architectural distortion in the superior anterior portion of the left breast likely corresponding with patient's history of lumpectomy. There are no additional regions of architectural distortion identified. Consider six-month follow-up with diagnostic left mammogram to further assess. RESULT CODE: 3 Probably Benign Finding Short Term Follow-Up DENSITY CODE: 3 (approximately 51-75% glandular) The breasts are heterogeneously dense, which may obscure small masses. FOLLOW UP: 6M THE FALSE-NEGATIVE RATE OF MAMMOGRAPHY IS APPROXIMATELY 10%. IMAGING OF A PALPABLE ABNORMALITY MUST BE BASED ON CLINICAL GROUNDS. PATIENT WAS ENTERED INTO A REMINDER SYSTEM WITH A TARGET DUE DATE FOR THE NEXT MAMMOGRAM. Impression dictated by: Jose Maria Ramirez M.D.11/16/2024 10:45 AM Dictation Location: [facility] Tech: Treva MortonMaribeth Heike Porter Transcribed By: BLANCA 11/16/24 1045 Dictated By: Jose Maria Ramirez DO 11/16/24 1033 Signed By: 11/16/24 1045 Normal [facility] CT SOFT TISSUE NECK W IV CON TRASTon 11-01-2024 CT SOFT TISSUE NECK W IV CONTRAST TITLE OF EXAM: CT SOFT TISSUE NECK W IV CONTRAST REASON FOR EXAM: Neck mass level II, recent diagnosis of lung cancer TECHNIQUE: Axial CT of the neck following the intravenous administration of 100 cc Isovue-300 COMPARISON: None. FINDINGS: Aerodigestive tract: The nasopharynx, oropharynx, hypopharynx, larynx, trachea, and esophagus are normal. Lymph nodes: No lymphadenopathy. Salivary glands: The parotid and submandibular glands are normal. Thyroid: Diminutive. No nodules identified. Soft tissues of the neck: Normal. Visualized thorax: Subjectively mild apical centrilobular emphysema. Vascular structures: Moderate right and minimal left carotid bulb calcification. Paranasal sinuses, face, orbits, and skull (included portions): Complete filling of the right maxillary sinus with mucous and/or soft tissue. Mild left maxillary sinus mucosal thickening, minimal mucous and/or soft tissue scattered within the remaining paranasal sinuses. Mild thickening of the booker of the right maxillary sinus. Cervical spine: No fracture or significant listhesis. No concerning focal osseous lesion. Severe C5-6 degenerative disc disease with complete loss of intervertebral space and uncovertebral proliferation. Moderate right C3-4 facet osteoarthrosis. Anterolisthesis of C3 on C4 and C4 on C5, approximately 2 mm. Retrolisthesis of C5 on C6 and C6 on C7, 1 to 2 mm. IMPRESSION: 1. No mass or lymphadenopathy in jennifer level 2 or elsewhere. If clinically warranted, consider targeted ultrasound. 2. Complete mucus and/or soft tissue filling of the right maxillary sinus with subtle findings suggesting chronic sinusitis. 3. Additional chronic and degenerative findings as detailed. DICTATED ON: 11/01/2024 11:42 AM This report has been electronically signed in approved by the interpreting radiologist. Invalid Interpretation Code Not Available ECG 12 Leadon 10-26-2024 [facility] Work Phone: CT Guidance for biopsy of Danielle ngon 10-09-2024 1. Successful core biopsy of left lingular [...] change in size of the pneumothorax. HISTORY: CARI HALE is a Female of 59 years age. [...] size of the pneumothorax. Electronically signed by Debi Dave [facility] Debi Dave MD - 10/09/2024 IMPRESSION: 1. Successful core [...] change in size of the pneumothorax. HISTORY: CARI HALE is a Female of 59 years age. [...] size of the pneumothorax. Electronically signed by Debi Dave [facility] Radiology Study observation (narrative) [facility] CT NEEDLE BIOPSY LUNG PERCUT ANEOUS W IMAGING GUIDANCEon 10-09-2024 CT NEEDLE BIOPSY LUNG PERCUTANEOUS W IMAGING GUIDANCE IMPRESSION: 1. Successful core biopsy of left [...] change in size of the pneumothorax. HISTORY: CARI HALE is a Female of 59 years age. [...] size of the pneumothorax. Electronically signed by Debi Dave Interpreted by: Debi Dave MD Signed by: Debi Dave MD 10/09/24 Final result [facility] POCT Glucoseon 10-09-2024 Glucose [Mass/Vol] 122 mg/dL High 70 - 99 mg/dl [facility] Interpretation and review of laboratory results Abnormal [facility] Performed on ACCU-CHEK [facility] Glucose [Mass/Vol] 122 mg/dL Critically high 70-99 M [facility] Comment on above: Performed By: #### P GLU #### [facility] [address] [place] [address] POC Performed on ACCU-CHEK [facility] Comment on above: Performed By: #### P GLU #### [facility] [address] [place] [address] Surgical Specimenon 10-10-19 Surgical Specimen [facility] [address] [place] [address] FINAL SURGICAL PATHOLOGY REPORT Patient Name: CARI HALE Accession No: [id number] Age Sex: 1965 Location: DIS Account No: [id number] Collected: 10/09/2024 Med Rec No: [id number] Received: 10/10/2024 Attend Phys: DEBI DAVE Completed: 10/12/2024 Perform Phys: RENATE DIALLO FINAL DIAGNOSIS: CORE BIOPSY LEFT LUNG MASS: HIGHLY SUSPICIOUS FOR ADENOCARCINOMA COMMENT: IMMUNOHISTOCHEMICAL STAINING SHOWS THAT THE ATYPICAL CELLS ARE POSITIVE FOR PANKERATIN AND TTF-1. THESE CELLS ARE NEGATIVE FOR P40 AND SYNAPTOPHYSIN. ALL STAINS ARE PERFORMED IN ASSOCIATION WITH APPROPRIATE CONTROLS. DR. DIALLO NOTIFIED VIA [employer] 10/12/2024. ROBBIEMO/ROBBIEMO CLINICAL INFORMATION: Mass of left lung. SPECIMEN: Lt Lung Mass Biopsy GROSS DESCRIPTION: Received in one container labeled Cari Hale and designated left lung mass biopsy . The specimen is received in formalin. The specimen consists of white tissue cores, 0.3 x 0.1 x 0.1 cm in aggregate. The specimen is submitted in toto in one cassette. [facility] CPT: 42606 X1 [id number] X3 02156 X1 Intradepartmental Consultation performed by: Dr. MAIN CHOWDHURY M.D., who concurs with the above diagnosis. Nusrat BURRELL M.D. 10/12/2024 Electronically signed out by Page 1 of 1 Abnormal [facility] Comment on above: Performed By: #### S UR #### [place] [address] XR CHEST (2 VW)on 10-09-2024 XR CHEST (2 VW) EXAMINATION: TWO XRAY VIEWS OF THE CHEST 10/09/2024 1:02 pm COMPARISON: None. HISTORY: ORDERING SYSTEM PROVIDED HISTORY: repeat CXR post biopsy of mass of left lung TECHNOLOGIST PROVIDED HISTORY: Reason for exam:->repeat CXR post biopsy of mass of left lung What reading provider will be dictating this exam?->CRC FINDINGS: Small left apical pneumothorax is observed. There is no tracheal deviation. Lingular density observed IMPRESSION: Small left apical pneumothorax without tracheal deviation Interpreted by: Debi Dave MD Babu, Mayukh C, MD Signed by: Debi Dave MD 10/09/24 Mavis Mcclain MD 10/09/24 Final result Normal [facility] XR CHEST (2 VW) EXAMINATION: TWO XRAY VIEWS OF THE CHEST 10/09/2024 1:02 pm COMPARISON: None. HISTORY: ORDERING SYSTEM PROVIDED HISTORY: repeat CXR post biopsy of mass of left lung TECHNOLOGIST PROVIDED HISTORY: Reason for exam:->repeat CXR post biopsy of mass of left lung What reading provider will be dictating this exam?->CRC FINDINGS: Small left apical pneumothorax is observed. There is no tracheal deviation. Lingular density observed IMPRESSION: Small left apical pneumothorax without tracheal deviation Interpreted by: Debi Dave MD Babu, Mayukh C, MD Signed by: Debi Dave MD 10/09/24 Mavis Mcclain MD 10/09/24 Final result Normal [facility] XR Chest 2 Viewson Small left apical pneumothorax without tracheal deviation [facility] EXAMINATION: TWO XRAY VIEWS OF THE CHEST 10/09/2024 1:02 pm COMPARISON: None. HISTORY: ORDERING SYSTEM PROVIDED HISTORY: repeat CXR post biopsy of mass of left lung TECHNOLOGIST PROVIDED HISTORY: Reason for exam:->repeat CXR post biopsy of mass of left lung What reading provider will be dictating this exam?->CRC FINDINGS: Small left apical pneumothorax is observed. There is no tracheal deviation. Lingular density observed [facility] Debi Dave MD / Mavis Mcclain MD - 10/09/2024 EXAMINATION: TWO XRAY VIEWS OF THE CHEST 10/09/2024 1:02 pm COMPARISON: None. HISTORY: ORDERING SYSTEM PROVIDED HISTORY: repeat CXR post biopsy of mass of left lung TECHNOLOGIST PROVIDED HISTORY: Reason for exam:->repeat CXR post biopsy of mass of left lung What reading provider will be dictating this exam?->CRC FINDINGS: Small left apical pneumothorax is observed. There is no tracheal deviation. Lingular density observed IMPRESSION: Small left apical pneumothorax without tracheal deviation Jeyson Mullins [facility] Radiology Study observation (narrative) [facility] Small left apical pneumothorax without tracheal deviation [facility] EXAMINATION: TWO XRAY VIEWS OF THE CHEST 10/09/2024 1:02 pm COMPARISON: None. HISTORY: ORDERING SYSTEM PROVIDED HISTORY: repeat CXR post biopsy of mass of left lung TECHNOLOGIST PROVIDED HISTORY: Reason for exam:->repeat CXR post biopsy of mass of left lung What reading provider will be dictating this exam?->CRC FINDINGS: Small left apical pneumothorax is observed. There is no tracheal deviation. Lingular density observed [facility] Debi Dave MD / Maivs Mcclain MD - 10/09/2024 EXAMINATION: TWO XRAY VIEWS OF THE CHEST 10/09/2024 1:02 pm COMPARISON: None. HISTORY: ORDERING SYSTEM PROVIDED HISTORY: repeat CXR post biopsy of mass of left lung TECHNOLOGIST PROVIDED HISTORY: Reason for exam:->repeat CXR post biopsy of mass of left lung What reading provider will be dictating this exam?->CRC FINDINGS: Small left apical pneumothorax is observed. There is no tracheal deviation. Lingular density observed IMPRESSION: Small left apical pneumothorax without tracheal deviation [facility] Radiology Study observation (narrative) [facility] XR Chest 2 ViewsOrdered By: Mavis Mcclain on 10-09-2024 [facility] Work Phone: [facility] Work Phone: US AORTAon 09-26-2024 [place] [address] Ultrasound Report Signed Patient: CARI HALE MR#: [id number] : 1965 Acct:[id number] Age/Sex: 59 / F ADM Date: 09/26/24 Loc: US Attending Dr: Eleanor Phelps M.D. Ordering Physician: Eleanor Phelps M.D. Date of Service: 09/26/24 Procedure(s): US aorta Accession Number(s): [id number] cc: RENATE DIALLO; Eleanor Phelps M.D. [address] [address] Patient Name: CARI HALE MRN: [facility]:[id number] date: 1965 Sex: F Assigned Patient Location: US Current Patient Location: US Accession/Order Number: [id number] Exam Date: 09/26/2024 23:06 Report Date: 09/26/2024 23:09 At the request of: ELEANOR PHELPS MD Procedure: US aorta Aortic ultrasound Reason for exam: Aortic stenosis. Comparison: none Technique: Grayscale, spectral and color Doppler images of the abdominal aorta were obtained. Findings: Visualized portions of the abdominal aorta appears normal in caliber without evidence of aneurysm.Maximum diameter of the aorta is 2.8 cm. There is associated atherosclerotic disease. Visualized portions of the common iliac arteries also appear normal in caliber. US/US aorta Impression: No ultrasound evidence of abdominal aortic aneurysm. Impression dictated by: Ozzy Mondragon Jr. D.OKamar09/26/2024 11:09 PM Dictation Location: [place] [address] Electronically authenticated by: [id number] Y Date: 09/26/2024 23:09 Dictated By: Ozzy Mondragon M.D. Signed By: 09/26/242311 DD/ 08 TD/TT: Automatic Furnace Operator: [facility] Radiology, Radiologist, - 09/26/2024 [place] [address] Ultrasound Report Signed Patient: CARI HALE MR#: [id number] : 1965 Acct:[id number] Age/Sex: 59 / F ADM Date: 09/26/24 Loc: US Attending Dr: Eleanor Phelps M.D. Ordering Physician: Eleanor Phelps M.D. Date of Service: 09/26/24 Procedure(s): US aorta Accession Number(s): [id number] cc: RENATE DIALLO; Eleanor Phelps M.D. The [address] [address] Patient Name: CARI HALE MRN: [facility]:[id number] date: 1965 Sex: F Assigned Patient Location: Current Patient Location: US Accession/Order Number: [id number] Exam Date: 09/26/2024 23:06 Report Date: 09/26/2024 23:09 At the request of: ELEANOR PHELPS MD Procedure: US aorta Aortic ultrasound Reason for exam: Aortic stenosis. Comparison: none Technique: Grayscale, spectral and color Doppler images of the abdominal aorta were obtained. Findings: Visualized portions of the abdominal aorta appears normal in caliber without evidence of aneurysm.Maximum diameter of the aorta is 2.8 cm. There is associated atherosclerotic disease. Visualized portions of the common iliac arteries also appear normal in caliber. US/US aorta Impression: No ultrasound evidence of abdominal aortic aneurysm. Impression dictated by: Ozzy Mondragon Jr., D.OKamar09/26/2024 11:09 PM Dictation Location: [place] [address] Electronically authenticated by: [id number] Y Date: 09/26/2024 23:09 Dictated By: Ozzy Mondragon M.D. Signed By: 09/26/242311 DD/ 08 TD/TT: Automatic Furnace Operator: [facility] Radiology Study observation (narrative) [facility] AORTAOrdered By: Radiolog ist Radiology on 09-26-2024 [facility] Work Phone: CBC With Platelet No Differe ntialon 09-13-2024 Erythrocyte distribution width (RBC) [Ratio] 12.3 % Normal 11.5-14.5 [facility] Comment on above: Performed By: #### C BCND #### [facility] [address] [place] [address] Hematocrit (Bld) [Volume fraction] 35.9 % Low 37.0-47.0 [facility] Comment on above: Performed By: #### C BCND #### [facility] [address] [place] [address] Hemoglobin (Bld) [Mass/Vol] 12.4 g/dL Normal 12.0-16.0 [facility] Comment on above: Performed By: #### C BCND #### [facility] [address] [place] [address] MCH (RBC) [Entitic mass] 32.8 pg Critically high 27.0-31.3 [facility] Comment on above: Performed By: #### C BCND #### [facility] [address] [place] [address] MCHC 34.5 % Normal 33.0-37.0 [facility] Comment on above: Performed By: #### C BCND #### [facility] [address] [place] [address] MCV (RBC) [Entitic vol] 95.0 fL Critically high 79.4-94 .8 [facility] Comment on above: Performed By: #### C BCND #### [facility] [address] [place] [address] Platelets (Bld) [#/Vol] 329 10*3/uL Normal 130-400 [facility] Comment on above: Performed By: #### C BCND #### [facility] [address] [place] [address] RBC (Bld) [#/Vol] 3.78 10*6/uL Low 4.20-5.40 [facility] Comment on above: Performed By: #### C BCND #### [facility] [address] [place] [address] WBC (Bld) [#/Vol] 13.2 10*3/uL Critically high 4.8-10.8 [facility] Comment on above: Performed By: #### C BCND #### [facility] [address] [place] [address] Prothrombin Timeon 5 INR Coag (PPP) [Relative time] 1.0 {INR} Normal [facility] Comment on above: Performed By: #### P T #### [facility] [address] [place] [address] PT Coag (PPP) [Time] 13.2 s Normal 12.3-14.9 [facility] Comment on above: Performed By: #### P T #### [facility] [address] [place] [address] SKULL BASE TO MID THI [...] Yg Alston MD 08/16/24 Final result Normal [facility] PT Skull base to mid-thighon 08-16-2024 2 cm lingular nodule is hypermetabolic and worrisome for neoplasm. Tissue sampling is recommended. Nonenlarged hypermetabolic left cervical level II lymph node. [facility] EXAMINATION: WHOLE BODY PET/CT 08/16/2024 TECHNIQUE: [...] nonobstructing 3 mm midpole left renal calculus. [facility] Yg Alston MD - 08/16/2024 EXAMINATION: [...] hypermetabolic left cervical level II lymph node. [facility] Radiology Study observation (narrative) [facility] PT Skull base to mid-thighOr dered By: Yg Alston on 08-16-[address] [facility] Work Phone: Coding Queryon 03-31-2024 Coding Query [...] CARI HALE; Caller Number: H , M [facility] Provider Letteron 03-24-2024 Provider Letter Provider Letter March 24, 2024 [address] H[address] [place] [phone] CARI HALE 1965 Dear Cari, We have been trying to reach you with no success. It is important that you return our call regarding your recent hospital discharge upon receiving this letter. Also, at the time of your call, please provide us with your current information. Thank you for your prompt attention to this matter. Sincerely, Tre Salas RN [employer] Operator [phone] [facility] CHEMISTRYOrdered By: Lab ROP User on 03-22-2024 Glucose [Mass/Vol] 354 mg/dL High 55 - 99 mg/dL [facility] POC Subsection Comment on above: Result Comment: Carter jarrell RN/ POC Device SN [id number] 1 Invalid Interpretation Code [facility] POC Subsection POC User ID [id number] 1 Invalid Interpretation Code [facility] POC Subsection POC Username PITA BAUTISTA Invalid Interpretation Code [facility] POC Subsection Glucose [Mass/Vol] 52 mg/dL Low 55 - 99 mg/dL [facility] POC Subsection Comment on above: Result Comment: Noti fied RN/ POC Device SN [id number] 1 Invalid Interpretation Code [facility] POC Subsection POC User ID [id number] 1 Invalid Interpretation Code [facility] POC Subsection [...] 370 Contrast amount in ml's: 100 Normal [facility] Capillary Glucose POCon 03-03 Glucose [Mass/Vol] 354 mg/dL High 55-99 [facility] Comment on above: Result Comment: Carter SERRANO Performed By: #### 2 [id number] ####[facility] [address] [place] [address] Glucose [Mass/Vol] 52 mg/dL Low 55-99 [facility] Comment on above: Result Comment: Carter SERRANO Performed By: #### 2 [id number] #### [facility] Laboratory [address] [place] [address] Discharge Note-Nursingon Discharge Note-Nursing Discharge Note-Nu rsing CARI HALE :1965 Visit Date:03/21/2024 Inpatient Discharge [...] Prescription (One Touch Delica Plus Lancets 33G) Mis Prescription (One Touch Delica Plus Test Strips) [...] When: Within 2 to 4 weeks [facility] [address]- Medications What How Much When Why Instructions [...] bedtime) R (more content not included)... Normal [facility] ED Note-Physicianon 03-22-20 ED Note-Physician ED Note-Physician [...] she was able to call her via [employer] on her phone and scream for help. [...] seen and evaluated by the physician assistant program manager. Attending physician was present in the emergency department and supervised care. This visit was performed by both the physician and an APC. I performed all aspects of the MDM as documented. This report was transcribed using voice recognition software. Every effort was made to ensure accuracy, however, inadvertently computerized supply chain analyst mistakes may be present. Appropriate healthcare PPE was used in evaluating this patient. The patient was placed in a mask. The healthcare provider was wearing mask, gloves, and utilizing proper hand hygiene. All equipment was properly cleansed. I performed a substantive part of the MDM during the patient?s E/M visit. (more content not included)... Normal [facility] Comment on above: Result Comment: Elec tronically Signed By: Raquel ORR, Taylor Rivera\.br\Date and Time Signed: 03/21/24 18:42 EDT\.br\Electronically Co-Signed By: Han Olivera M.D.\.br\Date and Time Co-Signed: 03/22/24 13:39 EDT Extra Alexander 03-22-2024 WB Tube Collected Yes Invalid Interpretation Code [facility] Comment on above: Performed By: #### 1 [id number] #### [facility] Laboratory [address] [place] [address] Free T4on 03-22-2024 Free T4 [Mass/Vol] 1.32 ng/dL Normal 0.58-1.64 [facility] Comment on above: Performed By: #### 2 [id number] #### [facility] Laboratory [address] [place] [address] Inpatient Clinical Summaryon 03-22-2024 Inpatient Clinical Summary Inpatient Clinical Summary [address] [address] Clinical Summary Person Information: Name: CARI HALE Age: 59 Years : 1965 Sex: Female PCP: Flora Khan Marital Status: Race: White Ethnicity: Non- or Language: Paraguayan Visit Id: Visit Reason: Weakness or fatigue; Potential stroke; STROKE Speciality: Acuity: Enc Type: Observation Med Service: Medical Arrival: 03/21/2024 13:41:38 Discharge: Dispo Type: Admitted as IP to this [facility] Address: [address] [place] [id number] Provider Notes: Diagnosis: 1:TIA (transient ischemic attack); [...] up: With: Address: When: Jesse Carr MD [place] [phone] Within 2 to 4 weeks Patient Education Information: Alcohol Misuse and Dependence Information, Adult; High Cholesterol; Type 2 Diabetes Mellitus, Diagnosis, Adult; Hypertension, Adult, Gurv-xq-Mndb; Smoking Tobacco Information, Adult; Core Measures Transient Ischemic Attack (TIA) [facility] (Custom); Core Measures: Stroke (Cerebrovascular Accident) [facility], (Custom) [facility] Inpatient Patient Summaryon 03-22-2024 Inpatient Patient Summary Inpatient Patient Summary [address] [address] Patient Discharge Instructions PERSON INFORMATION [...] Follow up: With: Address: When: Bruno HANKS, SONIA Pichardo [facility] [place] [address] Within 2 to 4 weeks In the event that this physician does not participate in your insurance network, please consult with your insurance company to find a nearby participating provider. Comment: GEOFFREY Danielle KRIS E, have received the attached patient education materials/instructions and have verbalized understanding: Patient Signature Date Clinican/Nurse Signature ___ Date HERE ARE THE MEDICATION CHANGES THAT OCCURRED DURING YOUR HOSPITAL STAY Medications to Continue with No Changes Other Medications aspirin (aspirin 81 mg Oral EC Tab) 1 Tablets By Mouth every day. Last Dose: ___Next Dose: ___ budesonide (budesonide 3 mg oral delayed release capsule) 3 Capsules By Mouth every day. 90 EA, 0 Refill(s), TAKE 3 CAPSULES BY MOUTH EVERY DAY. Last Dose: ___Next Dose: ___ buPROPion (buPROPion 150 mg/24 hours XL Tab) 1 Tablets By Mouth every day. Last Dose: ___Next Dose: ___ clopidogrel (clopidogrel 75 mg Tab) 1 Tablets By Mouth every day. Last Dose: ___Next Dose: ___ ergocalciferol (Vitamin D 50,000 intl units (1.25 mg) oral capsule) 50,000 International unit By Mouth every week. Refills: 3. Last Dose: ___Next Dose: ___ estradiol (estradiol 2 mg Tab) 1 Tablets By Mouth at bedtime. Refills: 3. Last Dose: ___Next Dose: ___ hydrOXYzine (hydrOXYzine hydrochloride 25 mg Tab) 1 Tablets By Mouth 4 times a day as needed for anxiety. Refills: 3. Last Dose: ___Next Dose: ___ insulin aspart (NovoLOG 100 units/mL injectable solution) 35 units daily per pump. Dx E11.01. Refills: 5. Last Dose: ___Next Dose: ___ lamotrigine (lamotrigine 100 mg Tab) 1 Tablets By Mouth every day. Last Dose: ___Next Dose: ___ levothyroxine (levothyroxine 150 mcg (0.15 mg) Tab) TAKE 1 TABLET BY MOUTH EVERY DAY. Refills: 1. Last Dose: ___Next Dose: ___ Misc Prescription (Medtronic Insulin Pump 770G) as directed. Refills: 0. Last Dose: ___Next Dose: ___ Misc Prescription (One Touch Delica Plus Lancets 33G) Use as directed. Testing blood sugars 5+ times daily. DX: E11.69. Refills: 5. Last Dose: ___Next Dose: ___ Misc Prescription (One Touch Delica Plus Test Strips) Use as directed. Testing blood sugars 5+ times daily. DX: E11.69. Refills: 5. Last Dose: ___Next Dose: ___ progesterone (progesterone 100 mg oral capsule) 1 Capsules By Mouth once a day (at bedtime). Refills: 3. Last Dose: ___Next Dose: ___ propranolol (propranolol 20 mg Tab) 1 Tablets By Mouth 2 times a day. Refills: 3. Last Dose: ___Next Dose: ___ rosuvastatin (rosuvastatin 5 mg Tab) 1 Tablets By Mouth every day. Refills: 1. Last Dose: (more content not included)... [facility] Interdisciplinary Note - Edy e Manageron 03-22-2024 Interdisciplinary Note - Corporate Consultant Interdisciplinary Note - Corporate Consultant Patient is drowsy does not stay awake enough to speak to CRM. Unable at this time to assess DC needs Patient is here as observation for possible stroke. Patient is assigned to [facility], see notes. Patient has neurology on [...] Jesse and he is her ride at [employer]. Patient verified PCP as Dr Diallo, dme and insurance. Patient is here as observation for possible stroke. Patient is assigned to [facility], see notes. Patient has neurology on case. Patient will get a MRI and MRA. Patient is pending PT recs. Patient declines at this time DC needs for DME, HH or PM. If she changes her mind for needs. She will call [facility]. Patient was provided contact info, susanna board updated. CRM Following Normal [facility] Comment on above: Result Comment: Elec tronically Signed By: Rose Lucio\.br\Date and Time Signed: 03/22/24 15:08 EDT Interdisciplinary Note - Soc ial Workeron 03-22-2024 Interdisciplinary Note - Human Resources Partner Interdisciplinary Note - Human Resources Partner There was a system generated request for [...] her consumption and she voiced understanding. Normal [facility] MRA Head w/o Contraston 03-03 MRA Head w/o Contrast Exam Date/Time: 03/22/2024 14:04 EDT Reason for Exam: Stroke Report IMPRESSION: NEGATIVE LIMITED HEAD MRA. EXAM: MRA Head w/o Contrast DATE: 03/22/2024 1:05 PM CLINICAL HISTORY: Stroke. Weakness and falls. COMPARISON: Head MRI 03/22/2024. TECHNIQUE: Three-dimensional teft-oz-[id number] MRA of the intracranial arterial circulation was [...] MD Transcribed by: HARRY Technologist: TRACY [facility] MRI Brain w/o Contraston MRI Brain [...] Signed by: Jerrod Alexander MD Transcribed by: DP Technologist: RAB Normal [facility] TSH With T4fr Reflexon 03-22 TSH Qn 0.01 m[IU]/L Low 0.34-5.60 [facility] Comment on above: Performed By: #### 1 [id number] #### [facility] Laboratory [address] [place] [address] BB Draw & Holdon 03-21-2024 BB D&H Sample drawn for Blo od Ba Normal [facility] Comment on above: Performed By: #### 1 [id number] #### [facility] Laboratory [address] [place] [address] CBC w/ Auto Diffon Basophils/100 WBC (Bld) 0.8 % Normal 0.0-2.0 [facility] Comment on above: Performed By: #### 2 [id number] #### [facility] Laboratory [address] [place] [address] Basophils/Leukocytes Auto (Bld) [Pure # fraction] 0.1 E9/L Normal 0.0-0.2 [facility] Comment on above: Performed By: #### 2 [id number] #### [facility] Laboratory [address] [place] [address] Eosinophils (Bld) [#/Vol] 0.2 E9/L Normal 0.0-0.5 [facility] Comment on above: Performed By: #### 2 [id number] #### [facility] Laboratory [address] [place] [address] Eosinophils/100 WBC (Bld) 2.5 % Normal 0.0-8.0 [facility] Comment on above: Performed By: #### 2 [id number] #### [facility] Laboratory [address] [place] [address] Erythrocyte distribution width (RBC) [Ratio] 13.7 % Normal 10.9-14.2 [facility] Comment on above: Performed By: #### 2 [id number] #### [facility] Laboratory [address] [place] [address] Hematocrit (Bld) [Volume fraction] 39.5 % Normal 34.0-46.0 [facility] Comment on above: Performed By: #### 2 [id number] #### [facility] Laboratory [address] [place] [address] Hemoglobin (Bld) [Mass/Vol] 13.0 g/dL Normal 12.0-16.0 [facility] Comment on above: Performed By: #### 2 [id number] #### [facility] Laboratory [address] [place] [address] Lymphocytes (Bld) [#/Vol] 2.1 E9/L Normal 1.0-4.0 [facility] Comment on above: Performed By: #### 2 [id number] #### [facility] Laboratory [address] [place] [address] Lymphocytes/100 WBC (Bld) 22.4 % Normal 14.0-50.0 [facility] Comment on above: Performed By: #### 2 [id number] #### [facility] [address] [place] [address] MCH (RBC) [Entitic mass] 32.8 pg Normal 27.0-34.0 [facility] Comment on above: Performed By: #### 2 [id number] #### [facility] [address] [place] [address] MCHC (RBC) [Mass/Vol] 32.9 g/dL Normal 31.4-36.0 [facility] Comment on above: Performed By: #### 2 [id number] #### [facility] [address] [place] [address] MCV (RBC) [Entitic vol] 99.8 fL Normal 80.0-100.0 [facility] Comment on above: Performed By: #### 2 [id number] #### [facility] [address] [place] [address] Monocytes (Bld) [#/Vol] 1.0 E9/L Normal 0.2-1.0 [facility] Comment on above: Performed By: #### 2 [id number] #### [facility] [address] [place] [address] Neutrophils (Bld) [#/Vol] 6.1 E9/L Normal 2.0-7.5 [facility] Comment on above: Performed By: #### 2 [id number] #### [facility] Laboratory [address] [place] [address] Neutrophils/100 WBC (Bld) 63.7 % Normal 36.0-75.0 [facility] Comment on above: Performed By: #### 2 [id number] #### [facility] Laboratory [address] [place] [address] Platelet mean volume (Bld) [Entitic vol] 7.9 fL Normal 6.4-10.8 [facility] Comment on above: Performed By: #### 2 [id number] #### [facility] Laboratory [address] [place] [address] Platelets (Bld) [#/Vol] 304.0 E9/L Normal 150.0-500.0 [facility] Comment on above: Performed By: #### 2 [id number] #### [facility] Laboratory [address] [place] [address] RBC (Bld) [#/Vol] 4.0 E12/L Low 4.3-5.9 [facility] Comment on above: Performed By: #### 2 [id number] #### [facility] [facility] [address] [place] [address] WBC corrected for nucl RBC Auto (Bld) [#/Vol] 9.6 E9/L Normal 4.0-11.0 [facility] Comment on above: Performed By: #### 2 [id number] #### [facility] [address] [place] [address] CHEMISTRYOrdered By: Dhiraj DUMAS User on 03-21-2024 Glucose [Mass/Vol] 150 mg/dL High 55 - 99 mg/dL [facility] POC Subsection POC Device SN [id number] [facility] POC Subsection POC User ID [id number] [address] [facility] POC Subsection POC Username DULCE MARIA BERRY Invalid Interpretation Code [facility] POC Subsection CHEMISTRYOrdered By: SYSTEM SYSTEM on [...] 15 mmol/L Normal 6 - 16 mEq/L Remisol Chem AST [Catalytic activity/Vol] 21 [iU]/d Normal [...] Chem eGFR 99 mL/min/1.73 m2 Normal >=59mL/min / 1.73 m2 Remisol Chem Ethanol Lvl mg/dL Normal [...] Sensitivity Troponin I Instructions For Use, [employer], March 2018) Urea nitrogen [Mass/Vol] 7 mg/dL Normal 5 - 21 mg/dL Remisol Chem Urea nitrogen/Creatinine [Mass ratio] 10 mg/mg Normal 10 - 20 Remisol Chem CMPon 03-21-2024 Albumin [Mass/Vol] 3.4 g/dL Normal 3.3-5.0 [facility] Comment on above: Performed By: #### 2 [id number] #### [facility] [address] [place] [address] Albumin/Globulin (S) [Mass conc ratio] 1.4 Normal 1.1-2.2 [facility] Comment on above: Performed By: #### 2 [id number] #### [facility] [address] [place] [address] ALP [Catalytic activity/Vol] 106 Int._Unit/L High 21-98 [facility] Comment on above: Performed By: #### 2 [id number] #### [facility] [address] [place] [address] ALT No additional P-5'-P [Catalytic activity/Vol] 17 Int._Unit/L Normal 6-46 [facility] Comment on above: Performed By: #### 2 [id number] #### [facility] [address] [place] [address] Anion gap [Moles/Vol] 15 mmol/L Normal 6-16 [facility] Comment on above: Performed By: #### 2 [id number] #### [facility] [address] [place] [address] AST [Catalytic activity/Vol] 21 Int._Unit/L Normal 5-43 [facility] Comment on above: Performed By: #### 2 [id number] #### [facility] [address] [place] [address] Bilirubin [Mass/Vol] 0.5 mg/dL Normal 0.0-1.1 [facility] Comment on above: Performed By: #### 2 [id number] #### [facility] [address] [place] [address] Calcium [Mass/Vol] 8.5 mg/dL Low 8.9-11.1 [facility] Comment on above: Performed By: #### 2 [id number] #### [facility] [address] [place] [address] Chloride [Moles/Vol] 105 mmol/L Normal 101-111 [facility] Comment on above: Performed By: #### 2 [id number] #### [facility] [address] [place] [address] CO2 [Moles/Vol] 24 mmol/L Normal 21-31 [facility] Comment on above: Performed By: #### 2 [id number] #### [facility] [address] [place] [address] Creatinine [Mass/Vol] 0.7 mg/dL Normal 0.5-1.3 [facility] Comment on above: Performed By: #### 2 [id number] #### [facility] [address] [place] [address] Globulin (S) [Mass/Vol] 2.5 g/dL Normal 1.4-4.0 [facility] Comment on above: Performed By: #### 2 [id number] #### [facility] [address] [place] [address] Glucose [Mass/Vol] 112 mg/dL Normal 55-199 [facility] Comment on above: Performed By: #### 2 [id number] #### [facility] [address] [place] [address] Potassium [Moles/Vol] 4.3 mmol/L Normal 3.5-5.3 [facility] Comment on above: Performed By: #### 2 [id number] #### [facility] [address] [place] [address] Protein [Mass/Vol] 5.9 g/dL Low 6.0-7.8 [facility] Comment on above: Performed By: #### 2 [id number] #### [facility] [address] [place] [address] Sodium [Moles/Vol] 140 mmol/L Normal 135-145 [facility] Comment on above: Performed By: #### 2 [id number] #### [facility] [address] [place] [address] Urea nitrogen [Mass/Vol] 7 mg/dL Normal 5-21 [facility] Comment on above: Performed By: #### 2 [id number] #### [facility] [address] [place] [address] Urea nitrogen/Creatinine [Mass ratio] 10 No Units Normal 10-20 [facility] Comment on above: Performed By: #### 2 [id number] #### [facility] [address] [place] [address] COAGULATIONOrdered By: Nelida Diallo on 03-21-2024 aPTT Coag (PPP) [Time] 27.5 s Normal 25.1 - 36.5 second(s) [facility] Auto Coag Comment on above: Interpretive Data: P regino 15 days - 4 weeks 1 - [...] the same coagulation reagent and instrumentation as [facility]. Currently there are no coagulation studies available worldwide for children to 14 days, and no normal ranges. Heparin therapeutic range (represented by Anti-Factor Xa activity of 0.2 - 0.4 U/mL) corresponds to PTT of 56.6 - 109.0 sec. INR Coag (PPP) [Relative time] 0.92 {INR} Invalid Interpretation Code [facility] Auto Coag Comment on above: Interpretive Data: I NR results are specifically intended to assess patients stabilized on long-term Anticoagulation therapy suggested INR s Less Intensive Anticoagulation 2.0 3.0 Conventional Range 3.0 4.5 PT Coag (PPP) [Time] 10.3 s Normal 9.4 - 1 2.5 second(s) [facility] Auto Coag Comment on above: Interpretive Data: [...] the same coagulation reagent and instrumentation as [facility]. Currently there are no coagulation studies available worldwide for children to 14 days, and no normal ranges. CT Head or Brain w/o Jesseas zehra 03-21-2024 CT Head or Brain w/o Contrast [...] acute intra or extra axial findings. Normal [facility] Capillary Glucose POCon 03-03 Glucose [Mass/Vol] 150 mg/dL High 55-99 [facility] Comment on above: Performed By: #### 2 [id number] #### [facility] [address] [place] [address] Glucose [Mass/Vol] 281 mg/dL High 55-99 [facility] Comment on above: Result Comment: Carter jarrell RN/ Performed By: #### 2 [id number] #### [facility] [address] [place] [address] ED Clinical Summaryon 2023 ED Clinical Summary ED Clinical Summary [address] [address] ED Clinical Summary Person Information Name: CARI HALE [facility] Age: 59 Years : 1965 Sex: Female Language: Paraguayan PCP: Flora Khan Marital Status: Visit Id: Visit Reason: Weakness or fatigue; Potential stroke; STROKE Speciality: Acuity: 2 Enc Type: Observation Med Service: Medical Arrival: 03/21/2024 13:41:38 Discharge: LOS: 000 05:49 Checkin: 03/21/2024 13:41:38 Checkout: 03/21/2024 19:30:55 Dispo Type: Admitted as IP to this [facility] EVENTS: Event Name Event Status Request Date/Time [...] 19:17:09 Meds Admin Request 03/21/2024 19:20:30 ADDRESS: [address] [place] [phone] PHYS DOC NOTES: MEDICAL INFORMATION: Prescriptions Given: [...] mg Tab) (more content not included)... Normal [facility] ED Patient Education Noteon 03-21-2024 ED Patient Education Note ED Patient Education Note Normal [facility] ED Patient Summaryon 024 ED Patient Summary ED Patient Summary [address] [address] Patient Discharge Instructions Person Information Name: CARI HALE Age: 59 Years Arrival Date: 03/21/2024 13:41:38 Discharge Diagnosis: 1:TIA (transient ischemic attack); 2:Type 2 diabetes mellitus with diabetic neuropathy; 3:HTN; 4:Hyperlipidemia; 5:CAD; 6:Emphysema/COPD; 7:Mood disorder; 8:History of thyroidectomy; 9:Smoker Primary Care Physician: Flora Khan Provider Information Primary Provider: Han Olivera M.D. Advanced Towboat Captain:Taylor García PA-C The exam and treatment you received in the Emergency Department were for an urgent problem and are not intended as complete care. It is important that you follow up with a doctor, nurse practitioner, or physician?s assistant program manager for ongoing care. If your symptoms become [...] opioids can be used to help relieve obdvhmli-dk-bprdnt pain and are often prescribed following a [...] guidance from the Food and Drug Administration (www.fda.gov/Drugs/Res ourcesForYou). ? Visit www.cdc.gov/drugoverdo se to learn about the risks of opioids abuse and overdose. ? If you believe you may be struggling with addiction, tell your health critical care transport nurse and ask for guidance or call [facility]?S National Help (more content not included)... Normal [facility] Ethanolon 03-21-2024 Ethanol Lvl <10 Normal <=11 [facility] Comment on above: Performed By: #### 2 [id number] #### [facility] [address] [place] [address] Extra Alexander 03-21-2024 WB Tube Collected Yes Invalid Interpretation Code [facility] Comment on above: Performed By: #### 1 [id number] #### [facility] [address] [place] [address] HEMATOLOGYOrdered By: SYSTEM SYSTEM on 03-21-2024 Basophils/100 [...] Heme Platelets (Bld) [#/Vol] 304.0 E9/L Normal 150. 0 - 500.0 E9/L Remisol Heme RBC (Bld) [#/Vol] 4.0 E12/L Low 4.3 - 5.9 E12/L Remisol Heme WBC corrected for nucl RBC Auto (Bld) [#/Vol] 9.6 E9/L Normal 4.0 - 11.0 E9/L Remisol Heme PT & PTTon 03-21-2024 aPTT Coag (PPP) [Time] 27.5 second(s) Normal 25.1-36.5 [facility] Comment on above: Result Comment: Para meter [...] the same coagulation reagent and instrumentation as [facility]. Currently there are no coagulation studies available worldwide for children to 14 days, and no normal ranges. Heparin therapeutic range (represented by Anti-Factor Xa activity of 0.2 - 0.4 U/mL) corresponds to PTT of 56.6 - 109.0 sec. Performed By: #### 1 [id number] #### [facility] [address] [place] [address] INR Coag (PPP) [Relative time] 0.92 {INR} Invalid Interpretation Code [facility] Comment on above: Result Comment: INR results are specifically intended to assess patients stabilized on long-term Anticoagulation therapy suggested INR?s ?Less Intensive Anticoagulation? 2.0 ? 3.0 Conventional Range 3.0 ? 4.5 Performed By: #### 1 [id number] #### [facility] [address] [place] [address] PT Coag (PPP) [Time] 10.3 second(s) Normal 9.4-12.5 [facility] Comment on above: Result Comment: 15 d [...] the same coagulation reagent and instrumentation as [facility]. Currently there are no coagulation studies available worldwide for children to 14 days, and no normal ranges. Performed By: #### 1 [id number] #### [facility] [address] [place] [address] Pre-Arrival Noteon Pre-Arrival Note Pre-Arrival Note Pre-Arrival Summary Name: , Current Date: 03/21/2024 13:41:57 EDT Gender: Date of : Age: Pre-Arrival Type: EMS ETA: 03/21/2024 14:06:00 EDT Primary Care Physician: Presenting Problem: STROKE Pre-Arrival User: Christen Aleman RN Referring Source: Location: PA Completion Date/Time: 03/21/2024 13:36:00 [facility] Emergency Department Pre-Hospital Report Form Vital Signs: Pre-Hospital Report: Treatment in Route: Response to Treatment: Misc. Issues: Normal [facility] Troponin 0 Hr.on 03-21-2024 Troponin HS 3.50 pg/mL Low 10.10-27.10 [facility] Comment on above: Result Comment: The 95% CI (Confidence Interval) PPV (Positive Predictive Value) for myocardial infarction in females is 38 pg/mL, in males 51 pg/mL. The results should be used in conjunction with clinical conditions of myocardial infarction. (Access High Sensitivity Troponin I Instructions For Use, [employer], March 2018) Performed By: #### 1 [id number] #### [facility] [address] [place] [address] UA with Cult Rflxon 03-21-20 24 Bilirubin Ql (U) Negative Normal Negative [facility] Comment on above: Performed By: #### 4 [id number] #### [facility] [address] [place] [address] Clarity (U) Clear Normal Clear [facility] Comment on above: Performed By: #### 4 [id number] #### [facility] [address] [place] [address] Color (U) Light-Yellow Normal Yellow [facility] Comment on above: Result Comment: Micr oscopic readings are only performed on those samples that meet specific criteria set forth by [facility]. Performed By: #### 4 [id number] #### [facility] [address] [place] [address] Glucose Ql (U) 4+ mg/dL Abnormal Negative [facility] Comment on above: Performed By: #### 4 [id number] #### [facility] [address] [place] [address] Hemoglobin Auto test strip (U) [Mass/Vol] Negative Normal Negative [facility] Comment on above: Performed By: #### 4 [id number] #### [facility] [address] [place] [address] Ketones Auto test strip Ql (U) 2+ mg/dL Abnormal Negative [facility] Comment on above: Performed By: #### 4 [id number] #### [facility] [address] [place] [address] Leukocyte esterase Auto test strip Ql (U) Negative Normal Negative [facility] Comment on above: Performed By: #### 4 [id number] #### [facility] [address] [place] [address] Nitrite Auto test strip Ql (U) Negative Normal Negative [facility] Comment on above: Performed By: #### 4 [id number] #### [facility] [address] [place] [address] pH (U) 5.5 [pH] Invalid Interpretation Code 5.0-9.0 [facility] Comment on above: Performed By: #### 4 [id number] #### [facility] [address] [place] [address] Protein Ql (U) Negative Normal Negative [facility] Comment on above: Performed By: #### 4 [id number] #### [facility] [address] [place] [address] Specific gravity (U) [Rel density] 1.020 Invalid Interpretation Code 1.005-1.030 [facility] Comment on above: Performed By: #### 4 [id number] #### [facility] [address] [place] [address] Urobilinogen (U) [Mass/Vol] Negative Normal Negative [facility] Comment on above: Performed By: #### 4 [id number] #### [facility] [address] [place] [address] Type of Urine collection method Clean Catch Normal [facility] Comment on above: Performed By: #### 4 [id number] #### [facility] [address] [place] [address] URINALYSISOrdered By: SYSTEM SYSTEM on 03-21-2024 Bilirubin Ql (U) Negative Normal Negativemg/ dL [facility] UA Auto SS Clarity (U) Clear (03/21/24 4:27 PM) Normal Clear [facility] UA Auto SS Color (U) Light-Yellow 1 (03/21/24 4:27 PM) Normal Yellow [facility] UA Auto SS Comment on above: Interpretive Data: M icroscopic readings are only performed on those samples that meet specific criteria set forth by [facility]. Glucose Ql (U) 4+ mg/dL Invalid Interpretation Code Negativemg/ dL FT UA Auto SS Hemoglobin Auto test strip (U) [Mass/Vol] Negative Normal Negativemg/ dL FT UA Auto SS Ketones Auto test strip Ql (U) 2+ mg/dL Invalid Interpretation Code Negativemg/ dL FT UA Auto SS Leukocyte esterase Auto test strip Ql (U) Negative Normal NegativeLeu /uL FT UA Auto SS Nitrite Auto test strip Ql (U) Negative Normal Negativemg/ dL [facility] UA Auto SS pH (U) 5.5 *NA* (03/21/24 4:27 PM) Invalid Interpretation Code 5.0 - 9.0 [facility] UA Auto SS Protein Ql (U) Negative Normal Negativemg/ dL [facility] UA Auto SS Specific gravity (U) [Rel density] 1.020 *NA* (03/21/24 4:27 PM) Invalid Interpretation Code 1.005 - 1.030 [facility] UA Auto SS Urobilinogen (U) [Mass/Vol] Negative Normal Negativemg/ dL [facility] UA Auto SS URINALYSISOrdered By: Logan Hooker on 03-21-2024 UA Spec Desc Clean Catch (03/21/24 4:27 PM) Normal [facility] UA Auto SS XR Chest Single Viewon [...] mGy = na DAP = na Normal [facility] eGFRon 03-21-2024 eGFR 99 mL/min/1.73 m2 Normal >=59 [facility] Comment on above: Order Comment: Order added by Discern Expert. Performed By: #### 1 [id number] #### [facility] [address] [place] [address] Consultation Noteon 10-29-19 Consultation Note [id number] Normal [facility] Provider Letteron 08-17-2023 Provider Letter August 17, 2023 [address] [place] [phone] : 1965 Dear Cari , We have been trying to reach you with no success. It is important that you return our call regarding your medication/appointment upon receiving this letter. Also, at the time of your call, please provide us with your current information. ;;f Thank you for your prompt attention to this matter. Sincerely, [facility] [address] [place] [address] [facility] Family Medicine Office/Clini c Noteon 05-28-2023 Family Medicine Office/Clinic Note HPI Staff Cari is a 58 year old female presenting to [facility] care Establish Care: History: Any previous diagnosis: Headache, Anxiety, HTN, HLD, Osteoarthritis, essential tremors, Type 2 DM, Colitis History of seeing any specialist: Neurologist for tremors doens't follow anymore, Dr Vitale in [place] When was your last doctors visit: Last provider: Dr Diallo Any recent labs: 01/22/23 and December 31 2022 A1c 7.2 Health Maintenance UTD: Colonoscopy: 10/2022 Colitis Mammogram: hasn't had one in a long time Pelvic/Pap: 3 years ago normal NEW: 10 Acute: Current issues/complaints: would like order for Angelina to [facility], refill hydroxyzine Menstrual cycle: pt states has [...] Thyroidectomy. M (more content not included)... Normal [facility] Comment on above: Result Comment: Elec tronically [...] 3:00 PM EST With: Flora Khan Where: [facility] Invalid Interpretation Code [address] [place] [address]-\.br\ You Need to Complete the Following\. br\ MA Mamm Screen w/CAD if perf and 3D Jace, 05/25/23, Routine, Order for Future Visit, Transport Mode: Ambulatory, Reason: Screening, No, Breast cancer screening by mammogram, pp_set_radi ology_subsp ecialty, [facility]\.br\ US Pelvis Non-OB Complete, 05/25/23, Routine, Order for future visit, Transport Mode: Ambulatory, Reason: Abnormal vaginal bleeding, No, Post-menopa use bleeding [facility] CHEMISTRYOrdered By: SYSTEM SYSTEM on 01-22-2023 Albumin [...] 11 mmol/L Normal 6 - 16 mEq/L [facility] Remisol AST [Catalytic activity/Vol] 29 [iU]/d Normal [...] 0.7 mg/dL Normal 0.5 - 1.3 mg/dL FT Remisol GFR/1.73 sq M.predicted among non-blacks MDRD (S/P/Bld) [Vol rate/Area] 100 mL/min/1.73 m2 Normal >=59mL/min/ 1.[address] [facility] Chem S Globulin (S) [Mass/Vol] 3.4 g/dL Normal 1.4 - 4.0 gm/dL FT Remisol Glucose [Mass/Vol] 138 mg/dL Normal 55 - 199 mg/dL FT Remisol Potassium [Moles/Vol] 3.7 mmol/L Normal 3.5 - 5.3 mmol/L [facility] Remisol Protein [Mass/Vol] 6.9 g/dL Normal 6.0 - 7.8 gm/dL [facility] Remisol Sodium [Moles/Vol] 135 mmol/L Normal 135 - 145 mmol/L [facility] Remisol Urea nitrogen [Mass/Vol] 7 mg/dL Normal 5 - 21 mg/dL FT Remisol Urea nitrogen/Creatinine [Mass ratio] 10 mg/mg [...] HemeAutoSS Platelets (Bld) [#/Vol] 294.0 E9/L Normal 150. 0 - 500.0 E9/L [facility] HemeAutoSS RBC (Bld) [...] 15 mmol/L Normal 6 - 16 mEq/L [facility] Remisol AST [Catalytic activity/Vol] 17 [iU]/d Normal [...] (S/P/Bld) [Vol rate/Area] 75 mL/min/1.73 m2 Normal >=59mL/min/ 1.73 m2 [facility] Chem S Globulin (S) [Mass/Vol] [...] Remisol Triglyceride [Mass/Vol] 150 mg/dL High <=149mg/dL [facility] Remisol TSH Qn 0.01 m[IU]/L Low 0.34 - 5.60 mcIU/mL [facility] Remisol Urea nitrogen [Mass/Vol] 11 mg/dL Normal 5 - 21 mg/dL [facility] Remisol Urea nitrogen/Creatinine [Mass ratio] 12 mg/mg Normal 10 - 20 [facility] Remisol CHEMISTRYOrdered By: Pierre de luna on 12-31-2022 Albumin DL <= 20 mg/L (U) [Mass/Vol] 40.4 microgram/mL High 0.0 - 19.0 mcg/mL [facility] Remisol CHEMISTRYOrdered By: Davey Barrera ertolasio on 12-31-2022 HbA1c (Bld) [Mass fraction] 7.2 [...] 74.4 % Normal 36.0 - 75.0 % FT HemeAutoSS Neutrophils/Leukocytes Auto (Bld) [Pure # fraction] 9.1 E9/L High 2.0 - 7.5 E9/L FT HemeAutoSS HEMATOLOGYOrdered By: Carlin Martinez on 12-31-2022 Erythrocyte distribution width (RBC) [Ratio] 13.4 % Normal 10.9 - 14.2 % FT HemeAutoSS Hematocrit (Bld) [Volume fraction] 42.3 % Normal 34.0 - 46.0 % FT HemeAutoSS Hemoglobin (Bld) [Mass/Vol] 14.6 g/dL Normal [...] HemeAutoSS Platelets (Bld) [#/Vol] 408.0 E9/L Normal 150. 0 - 500.0 E9/L FT HemeAutoSS RBC (Bld) [#/Vol] 4.4 E12/L Normal 4.3 - 5.9 E12/L [facility] HemeAutoSS Sed Rate Automated 14 mm/h Normal 0 - 34 mm/hr FT HemeAutoSS WBC corrected for nucl RBC Auto (Bld) [#/Vol] 12.2 E9/L High 4.0 - 11.0 E9/L [facility] HemeAutoSS Glucose Glucometer (BldC) [M ass/Vol]Ordered By: Geovanny Schaffer on 10-13-2022 Glucose [Mass/Vol] 177 mg/dL [facility] Comment on above: Random Glucose Refer ence Range is dependent on time and content of last meal. Glucose of more than 200 mg/dL in a nonstressed, ambulatory subject supports the diagnosis of Diabetes Mellitus. HCG ( test) IA.rapi d Ql (U)Ordered By: Geovanny Schaffer on 10-13-2022 HCG ( test) Ql (U) Negative [place] [facility] No Panel InformationOrdered By: Geovanny Schaffer on 10-13-2022 Bedside Glucose Comment Glu2: cleaned meter [facility] CHEMISTRYOrdered By: SYSTEM SYSTEM on 06-03-2022 Albumin [...] 19 mmol/L High 6 - 16 mEq/L [facility] Remisol AST [Catalytic activity/Vol] 19 [iU]/d Normal [...] MDRD (S/P/Bld) [Vol rate/Area] mL/min/1.73 m2 Normal >=59mL/min/ 1.73 m2 [facility] S GFR/1.73 sq M.predicted among non-blacks MDRD (S/P/Bld) [Vol rate/Area] mL/min/1.73 m2 Normal >=59mL/min/ 1.73 m2 [facility] Chem S Globulin (S) [Mass/Vol] 3.3 g/dL [...] Remisol Triglyceride [Mass/Vol] 114 mg/dL Normal <=149mg/dL [facility] Remisol TSH Qn 0.01 m[IU]/L Low 0.34 [...] HemeAutoSS Platelets (Bld) [#/Vol] 349.0 E9/L Normal 150. 0 - 500.0 E9/L [facility] HemeAutoSS RBC (Bld) [#/Vol] 4.1 E12/L Low 4.3 - 5.9 E12/L [facility] HemeAutoSS WBC corrected for nucl RBC Auto (Bld) [#/Vol] 10.5 E9/L Normal 4.0 - 11.0 E9/L [facility] HemeAutoSS CBC AUTO DIFFon 01-15-2022 BASO # 0.1 103/ul Normal 0.0-0.1 [facility] Comment on above: Performed By: #### A 1C #### [facility] [address] [place] [address] Dr. Jesus Lunsford Basophils/100 WBC (Bld) 0.6 % Normal 0.2-2.0 [facility] Comment on above: Performed By: #### A 1C #### [facility] [address] [place] [address] Dr. Jesus Lunsford EO # 0.2 103/ul Normal 0.0-0.7 [facility] Comment on above: Performed By: #### A 1C #### [facility] [address] [place] [address] Dr. Jesus Lunsford Eosinophils/100 WBC (Bld) 1.3 % Normal 0.9-7.0 [facility] Comment on above: Performed By: #### A 1C #### [facility] [address] [place] [address] Dr. Jesus Lunsford Erythrocyte distribution width (RBC) [Ratio] 14.5 % Normal 11.0-15.0 [facility] Comment on above: Performed By: #### A 1C #### [facility] [address] [place] [address] Dr. Jesus Lunsford Hematocrit (Bld) [Volume fraction] 36.8 % Normal 36.0-48.0 [facility] Comment on above: Performed By: #### A 1C #### [facility] [address] [place] [address] Dr. Jesus Lunsford Hemoglobin (Bld) [Mass/Vol] 12.2 g/dL Normal 12.0-16.0 [facility] Comment on above: Performed By: #### A 1C #### [facility] [address] [place] [address] Dr. Jesus Lunsford IG # 0.09 10e3/ul Critically high 0.00-0.03 [facility] Comment on above: Performed By: #### A 1C #### [facility] [address] [place] [address] Dr. Jesus Lunsford IG % 0.7 % Critically high 0.0-0.5 [facility] Comment on above: Performed By: #### A 1C #### [facility] [address] [address] [address] Jesus Lunsford LYMPH # 2.9 103/ul Normal 1.2-3.8 [facility] Comment on above: Performed By: #### A 1C #### [facility] [address] [place] [address] Dr. Jesus Lunsford Lymphocytes/100 WBC (Bld) 22.4 % Normal 20.5-60.0 [facility] Comment on above: Performed By: #### A 1C #### [facility] [address] [place] [address] Dr. Jesus Lunsford MANUAL DIFF REQ NO Normal [facility] Comment on above: Performed By: #### A 1C #### [facility] [address] [place] [address] Dr. Jesus Lunsford MCH (RBC) [Entitic mass] 32.4 pg Normal 26.7-34.0 [facility] Comment on above: Performed By: #### A 1C #### [facility] [address] [place] [address] Dr. Jesus Lunsford MCHC (RBC) [Mass/Vol] 33.2 g/dL Normal 29.9-35.2 [facility] Comment on above: Performed By: #### A 1C #### [facility] [address] [place] [address] Dr. Jesus Lunsford MCV (RBC) [Entitic vol] 97.9 fL Normal 81.0-99.0 [facility] Comment on above: Performed By: #### A 1C #### [facility] [address] [place] [address] Dr. Jesus Lunsford MONO # 1.6 103/ul Critically high 0.3-0.8 [facility] Comment on above: Performed By: #### A 1C #### [facility] [address] [place] [address] Dr. Jesus Lunsford Monocytes/100 WBC (Bld) 12.4 % Critically high 1.7-12. 0 [facility] Comment on above: Performed By: #### A 1C #### [facility] [address] [place] [address] Dr. Jesus Lunsford NEUT # 8.0 103/ul Critically high 1.4-6.5 [facility] Comment on above: Performed By: #### A 1C #### [facility] [address] [place] [address] Dr. Jesus Lunsford Neutrophils/100 WBC (Bld) 62.6 % Normal 43.0-75.0 [facility] Comment on above: Performed By: #### A 1C #### [facility] [address] [place] [address] Dr. Jesus Lunsford Platelet mean volume (Bld) [Entitic vol] 10.0 fL Normal 9.5-13.5 [facility] Comment on above: Performed By: #### A 1C #### [facility] [address] [place] [address] Dr. Jesus Lunsford PLT 233 103/ul Normal 150-450 [facility] Comment on above: Performed By: #### A 1C #### [facility] [address] [place] [address] Dr. Jesus Lunsford RBC 3.76 106/ul Critically low 4.20-5.40 [facility] Comment on above: Performed By: #### A 1C #### [facility] [address] [place] [address] Dr. Jesus Lunsford WBC 12.8 103/ul Critically high 4.0-11.0 [facility] Comment on above: Performed By: #### A 1C #### [facility] [address] [place] [address] Dr. Jesus Lunsford DRUG SCREEN RAPID (URINE)on 01-15-2022 AMP Negative Normal NEGATIVE [facility] Comment on above: Performed By: #### D RUGRPD #### [facility] [address] [place] [address] Dr. Jesus Lunsford BAR Negative Normal NEGATIVE [facility] Comment on above: Performed By: #### D RUGRPD #### [facility] [address] [place] [address] Dr. Jesus Lunsford BUP Negative Normal NEGATIVE [facility] Comment on above: Performed By: #### D RUGRPD #### [facility] [address] [place] [address] Dr. Jesus Lunsford BZO Positive Abnormal NEGATIVE [facility] Comment on above: Performed By: #### D RUGRPD #### [facility] [address] [place] [address] Dr. Jesus Lunsford VENU Negative Normal NEGATIVE [facility] Comment on above: Performed By: #### D RUGRPD #### [facility] [address] [place] [address] Dr. Jesus Lunsford CUT-OFFS SEE BELOW Normal [facility] Comment on above: Result Comment: AMP [...] ng/mL Performed By: #### D RUGRPD #### [facility] [address] [place] [address] Dr. Jesus Lunsford DRUG CUT HEADER DRUG CLASS TEST SYST EM CUT-OFF CONCENTRATIONS ARE FOLLOWS: Normal [facility] Comment on above: Performed By: #### D RUGRPD #### [facility] [address] [place] [address] Dr. Jesus Lunsford mAMP Negative Normal NEGATIVE [facility] Comment on above: Performed By: #### D RUGRPD #### [facility] [address] [address] [address] Jesus Lunsford MTD Negative Normal NEGATIVE [facility] Comment on above: Performed By: #### D RUGRPD #### [facility] [address] [address] [address] Jesus Lunsford OPI Positive Abnormal NEGATIVE [facility] Comment on above: Performed By: #### D RUGRPD #### [facility] [address] [address] [address] Jessu Lunsford OXY Positive Abnormal NEGATIVE [facility] Comment on above: Performed By: #### D RUGRPD #### [facility] [address] [place] [address] Dr. Jesus Lunsford PCP Negative Normal NEGATIVE [facility] Comment on above: Performed By: #### D RUGRPD #### [facility] [address] [address] [address] Jesus Lunsford PPX Negative Normal NEGATIVE [facility] Comment on above: Performed By: #### D RUGRPD #### [facility] [address] [address] [address] Jesus Lunsford TCA Negative Normal NEGATIVE [facility] Comment on above: Performed By: #### D RUGRPD #### [facility] [address] [place] [address] Dr. Jesus Lunsford THC Negative Normal NEGATIVE [facility] Comment on above: Performed By: #### D RUGRPD #### [facility] [address] [place] [address] Dr. Jesus Lunsford ECHOCARDIO M/2D COMPLETEon 0 01-15-2022 ECHOCARDIO M/2D COMPLETE Patient: CARI HALE Exam Date: 01/15/2022 : 1965 Gender:F Ordering : SHAIKH Aleisha SHELBY . Admission #: [id number] Family : Order #: [id number] CLICK HERE TO VIEW EXAM ECHOCARDIOGRAM REPORT [...] Area(A4C): 16.10 cm2 Left Atrium Systolic Volume(A2C): 69791 mm3 Left Atrium Systolic Volume(A4C): 80172 mm3 Mitral Valve MV E to A [...] Siddiqi M.D. on 01/15/2022 at 14:43 Normal [facility] GLYCOHEMOGLOBIN A1Con 2021 ADA RECOMMENDATION SEE BELOW Normal [facility] Comment on above: Result Comment: ADA RECOMMENDED LIMIT 4.0 - 6.0 ADA THERAPEUTIC TARGET < 7.0 ACTION SUGGESTED > 7.0 Performed By: #### A 1C #### [facility] [address] [address] [address] Jesus Lunsford Glucose [Mass/Vol] 166 mg/dL Normal [facility] Comment on above: Performed By: #### A 1C #### [facility] [address] [place], [place] [address] Dr. Jesus Lunsford HbA1c (Bld) [Mass fraction] 7.4 % Critically high 4.5-6.2 [facility] Comment on above: Performed By: #### A 1C #### [facility] [address] [address] [address] Jesus Lunsford LIPID PROFILEon 01-15-2022 CHOL-HDL RATIO NORM SEE BELOW Normal [facility] Comment on above: Result Comment: 3.3 - 4.4 LOW RISK 4.4 - 7.1 AVERAGE RISK 7.1 - 11.0 MODERATE RISK >11.0 HIGH RISK Performed By: #### L IPID #### [facility] [address] [address] [address] Jesus Lunsford Cholesterol [Mass/Vol] 144 mg/dL Normal <=200 Th [facility] Comment on above: Performed By: #### L IPID #### [facility] [address] [address] [address] Jesus Lunsford Cholesterol in HDL [Mass/Vol] 69 mg/dL Critically high 40-60 [facility] Comment on above: Performed By: #### L IPID #### [facility] [address] [address] [address] Jesus Lunsford Cholesterol in LDL [Mass/Vol] 67.6 mg/dL Normal [facility] Comment on above: Performed By: #### L IPID #### [facility] [address] [address] [address] Jesus Lunsford Cholesterol.total/Delmis sterol in HDL [Mass ratio] 2.1 {ratio} Normal [facility] Comment on above: Performed By: #### L IPID #### [facility] [address] [address] [address] Jesus Lunsford HDL NORMAL > or = 60 mg/dl - LO W CARDIOVASCULAR RISK <40 mg/dl - HIGH CARDIOVASCULAR RISK Normal [facility] Comment on above: Performed By: #### L IPID #### [facility] [id number] Jesus Lunsford LDL CALC NORMAL SEE BELOW Normal [facility] Comment on above: Result Comment: <100 mg/dl OPTIMAL 100 - 129 mg/dl NEAR OR ABOVE OPTIMAL 130 - 159 mg/dl BORDERLINE HIGH 160 - 189 mg/dl HIGH >190 mg/dl VERY HIGH Performed By: #### L IPID #### [facility] [address] [address] [address] Jesus Lunsford Triglyceride [Mass/Vol] 37 mg/dL Normal <=150 [facility] Comment on above: Performed By: #### L IPID #### [facility] [address] [address] [address] Jesus Lunsford VLDL CALC 7.4 mg/dL Normal [facility] Comment on above: Performed By: #### L IPID #### [facility] [address] [address] [address] Jesus Lunsford POINT OF CARE GLUCOSEon 12-31 Glucose [Mass/Vol] 58 mg/dL Critically low 74-106 [facility] Comment on above: Performed By: #### C VDTBH #### [facility] [address] [place] [address] Dr. Jesus Lunsford Glucose [Mass/Vol] 104 mg/dL Normal 74-106 [facility] Comment on above: Performed By: #### A 1C #### [facility] [address] [place] [address] Dr. Jesus Lunsford PROF CHEM 8 (BAS METB)on Anion gap [Moles/Vol] 11.2 mmol/L Normal [facility] Comment on above: Performed By: #### A 1C #### [facility] [address] [place] [address] Dr. Jesus Lunsford Calcium [Mass/Vol] 8.0 mg/dL Critically low 8.5-10.1 [facility] Comment on above: Performed By: #### A 1C #### [facility] [address] [place] [address] Dr. Jesus Lunsford Chloride [Moles/Vol] 99 mmol/L Normal 98-107 [facility] Comment on above: Performed By: #### A 1C #### [facility] [address] [place] [address] Dr. Jesus Lunsford CO2 [Moles/Vol] 27.5 mmol/L Normal 21.0-32.0 [facility] Comment on above: Performed By: #### A 1C #### [facility] [address] [address] [address] Jesus Lunsford Creatinine [Mass/Vol] 0.84 mg/dL Normal 0.55-1.02 [facility] Comment on above: Performed By: #### A 1C #### [facility] [address] [address] [address] Jesus Lunsford EGFR-AF GRENADIAN >60 Normal >=60 [facility] Comment on above: Performed By: #### A 1C #### [facility] [address] [address] [address] Jesus Lunsford EGFR-NON AF GRENADIAN >60 Normal >=60 [facility] Comment on above: Performed By: #### A 1C #### [facility] [address] [address] [address] Jesus Lunsford Glucose [Mass/Vol] 94 mg/dL Normal 74-106 [facility] Comment on above: Performed By: #### A 1C #### [facility] [address] [place] [address] Dr. Jesus Lunsford Potassium [Moles/Vol] 4.7 mmol/L Normal 3.5-5.1 [facility] Comment on above: Performed By: #### A 1C #### [facility] [address] [place] [address] Dr. Jesus Lunsford Sodium [Moles/Vol] 133 mmol/L Critically low 136-145 Th [facility] Comment on above: Performed By: #### A 1C #### [facility] [address] [place] [address] Dr. Jesus Lunsford Urea nitrogen [Mass/Vol] 12.0 mg/dL Normal 7.0-18.0 [facility] Comment on above: Performed By: #### A 1C #### [facility] [address] [place] [address] Dr. Jesus Lunsford Urea nitrogen/Creatinine [Mass ratio] 14.3 mg/mg Normal [facility] Comment on above: Performed By: #### A 1C #### [facility] [address] [place] [address] Dr. Jesus Lunsford BNPon 01-14-2022 Natriuretic peptide B (Bld) [Mass/Vol] 721.0 pg/mL Normal <=900.0 [facility] Comment on above: Performed By: #### H STROPN, BNP, BMP #### [facility] [address] [place] [address] Dr. Jesus Lunsford CBC AUTO DIFFon 01-14-2022 BASO # 0.1 103/ul Normal 0.0-0.1 [facility] Comment on above: Performed By: #### C BC #### [facility] [address] [place] [address] Dr. Jesus Lunsford Basophils/100 WBC (Bld) 0.6 % Normal 0.2-2.0 [facility] Comment on above: Performed By: #### C BC #### [facility] [address] [place] [address] Dr. Jesus Lunsford EO # 0.2 103/ul Normal 0.0-0.7 [facility] Comment on above: Performed By: #### C BC #### [facility] [address] [place] [address] Dr. Jesus Lunsford Eosinophils/100 WBC (Bld) 1.3 % Normal 0.9-7.0 [facility] Comment on above: Performed By: #### C BC #### [facility] [address] [place] [address] Dr. Jesus Lunsford Erythrocyte distribution width (RBC) [Ratio] 14.2 % Normal 11.0-15.0 [facility] Comment on above: Performed By: #### C BC #### [facility] [address] [place] [address] Dr. Jesus Lunsford Hematocrit (Bld) [Volume fraction] 37.8 % Normal 36.0-48.0 [facility] Comment on above: Performed By: #### C BC #### [facility] [address] [place] [address] Dr. Jesus Lunsford Hemoglobin (Bld) [Mass/Vol] 13.0 g/dL Normal 12.0-16.0 [facility] Comment on above: Performed By: #### C BC #### [facility] [address] [address] [address] Jesus Lunsford IG # 0.08 10e3/ul Critically high 0.00-0.03 [facility] Comment on above: Performed By: #### C BC #### [facility] [address] [address] [address] Jesus Lunsford IG % 0.6 % Critically high 0.0-0.5 [facility] Comment on above: Performed By: #### C BC #### [facility] [address] [address] [address] Jesus Lunsford LYMPH # 2.0 103/ul Normal 1.2-3.8 [facility] Comment on above: Performed By: #### C BC #### [facility] [address] [place] [address] Dr. Jesus Lunsford Lymphocytes/100 WBC (Bld) 16.0 % Critically low 20.5-60.0 [facility] Comment on above: Performed By: #### C BC #### [facility] [address] [place] [address] Dr. Jesus Lunsford MANUAL DIFF REQ NO Normal [facility] Comment on above: Performed By: #### C BC #### [facility] [address] [place] [address] Dr. Jesus Lunsford MCH (RBC) [Entitic mass] 32.7 pg Normal 26.7-34.0 [facility] Comment on above: Performed By: #### C BC #### [facility] [address] [place] [address] Dr. Jesus Lunsford MCHC (RBC) [Mass/Vol] 34.4 g/dL Normal 29.9-35.2 [facility] Comment on above: Performed By: #### C BC #### [facility] [address] [address] [address] Jesus Lunsford MCV (RBC) [Entitic vol] 95.2 fL Normal 81.0-99.0 [facility] Comment on above: Performed By: #### C BC #### [facility] [address] [address] [address] Jesus Lunsford MONO # 0.9 103/ul Critically high 0.3-0.8 [facility] Comment on above: Performed By: #### C BC #### [facility] [address] [address] [address] Jesus Lunsford Monocytes/100 WBC (Bld) 7.3 % Normal 1.7-12.0 [facility] Comment on above: Performed By: #### C BC #### [facility] [address] [address] [address] Jesus Lunsford NEUT # 9.3 103/ul Critically high 1.4-6.5 [facility] Comment on above: Performed By: #### C BC #### [facility] [address] [place] [address] Dr. Jesus Lunsford Neutrophils/100 WBC (Bld) 74.2 % Normal 43.0-75.0 [facility] Comment on above: Performed By: #### C BC #### [facility] [address] [address] [address] Jesus Lunsford Platelet mean volume (Bld) [Entitic vol] 9.6 fL Normal 9.5-13.5 [facility] Comment on above: Performed By: #### C BC #### [facility] [address] [address] [address] Jesus Lunsford PLT 277 103/ul Normal 150-450 [facility] Comment on above: Performed By: #### C BC #### [facility] [address] [address] [address] Jesus Lunsford WBC 12.5 103/ul Critically high 4.0-11.0 [facility] Comment on above: Performed By: #### C BC #### [facility] [address] [address] [address] HEAD WO CONon [...] by: JESSE FIELDS Date: 2022-01-14 17:25 Normal [facility] CTA CHEST WO W CONon 2 022 CTA CHEST WO W CON EXAMINATION: CTA ELGIN ST WO W CON HISTORY: CHEST PAIN, UNSPECIFIED [...] by: JESSE FIELDS Date: 2022-01-14 13:55 Normal [facility] Covid-19 PCR (CVDTB)on 12-31 SARS-CoV-2 (COVID-19) RNA EFRAIN+probe Ql (Unsp spec) Not detected Normal NOT DETECTED [facility] Comment on above: Result Comment: When [...] for this test is supported by the [place] of Health and Human Service's declaration that [...] longer be used). Performed By: #### C VDTBH #### [facility] [address] [place] [address] Dr. Jesus Lunsford D-DIMERon 01-14-2022 D-DIMER 0.60 mg/L FEU Critically high <=0.59 [facility] Comment on above: Performed By: #### C VDTBH #### [facility] [address] [place] [address] Dr. Jesus Lunsford D-DIMER COMMENTS SEE BELOW Normal [facility] Comment on above: Result Comment: Incr eases [...] hospitalization. Performed By: #### C VDTBH #### [facility] [address] [address] [address] Jesus Lunsford ETHANOL (BLD AL[facility])on 01-15-20 ALC NOTE NOTE: 80 mg/dl is [facility] legal limit for a blood alcohol level Normal [facility] Comment on above: Performed By: #### A 1C #### [facility] [address] [address] [address] Jesus Lunsford Ethanol [Mass/Vol] mg/dL Normal [facility] Comment on above: Performed By: #### A 1C #### [facility] [address] [place] [address] Dr. Jesus Lunsford POINT OF CARE GLUCOSEon 12-31 Glucose [Mass/Vol] 215 mg/dL Critically high 74-106 [facility] Comment on above: Performed By: #### A 1C #### [facility] [address] [place] [address] Dr. Jesus Lunsford Glucose [Mass/Vol] 51 mg/dL Critically low 74-106 [facility] Comment on above: Result Comment: Will Repeat Test Performed By: #### C VDTBH #### [facility] [address] [place] [address] Dr. Jesus Lunsford Glucose [Mass/Vol] 263 mg/dL Critically high -106 [facility] Comment on above: Performed By: #### C VDTBH #### [facility] [address] [place] [address] Dr. Jesus Lunsford PROF CHEM 8 (BAS METB)on Anion gap [Moles/Vol] 12.6 mmol/L Normal [facility] Comment on above: Performed By: #### H STROPN, BNP, BMP #### [facility] [address] [place] [address] Dr. Jesus Lunsford Calcium [Mass/Vol] 8.2 mg/dL Critically low 8.5-10.1 [facility] Comment on above: Performed By: #### H STROPN, BNP, BMP #### [facility] [address] [place] [address] Dr. Jesus Lunsford Chloride [Moles/Vol] 102 mmol/L Normal 98-107 [facility] Comment on above: Performed By: #### H STROPN, BNP, BMP #### [facility] [address] [address] [address] Jesus Lunsford CO2 [Moles/Vol] 25.5 mmol/L Normal 21.0-32.0 [facility] Comment on above: Performed By: #### H STROPN, BNP, BMP #### [facility] [address] [address] [address] Jesus Lunsford Creatinine [Mass/Vol] 0.71 mg/dL Normal 0.55-1.02 [facility] Comment on above: Performed By: #### H STROPN, BNP, BMP #### [facility] [address] [address] [address] Jesus Lunsford EGFR-AF GRENADIAN >60 Normal >=60 [facility] Comment on above: Performed By: #### H STROPN, BNP, BMP #### [facility] [address] [address] [address] Jesus Lunsford EGFR-NON AF GRENADIAN >60 Normal >=60 [facility] Comment on above: Performed By: #### H STROPN, BNP, BMP #### [facility] [address] [address] [address] Jesus Lunsford Glucose [Mass/Vol] 145 mg/dL Critically high 74-106 [facility] Comment on above: Performed By: #### H STROPN, BNP, BMP #### [facility] [address] [address] [address] Jesus Lunsford Potassium [Moles/Vol] 4.1 mmol/L Normal 3.5-5.1 [facility] Comment on above: Performed By: #### H STROPN, BNP, BMP #### [facility] [address] [address] [address] Jesus Lunsford Sodium [Moles/Vol] 136 mmol/L Normal 136-145 [facility] Comment on above: Performed By: #### H STROPN, BNP, BMP #### [facility] [address] [address] [address] Jesus Lunsford Urea nitrogen [Mass/Vol] 6.0 mg/dL Critically low 7.0-18.0 [facility] Comment on above: Performed By: #### H STROPN, BNP, BMP #### [facility] [address] [address] [address] Jesus Lunsford Urea nitrogen/Creatinine [Mass ratio] 8.5 mg/mg Normal [facility] Comment on above: Performed By: #### H STROPN, BNP, BMP #### [facility] [address] [address] [address] Jesus Lunsford TROPONIN, HIGH SENSITIVITYon 01-14-2022 HSTROP 9.4 pg/mL Normal 4.0-51.3 [facility] Comment on above: Result Comment: CUT- OFF POINTS HAVE BEEN ESTABLISHED BASED ON THE FOURTH UNIVERSAL DEFINITIONS OF MYOCARDIAL INFARCTION. THE UPPER REFERENCE LIMIT (URL) OF TROPONIN, DEFINED THE 99TH PERCENTILE OF cTnI DISTRIBUTION IN A REFERENCE POPULATION, HAS BEEN CONFIRMED THE DECISION THRESHOLD FOR GA DIAGNOSIS. Performed By: #### H STROPN #### [facility] [address] [place] [address] Dr. Jesus Lunsford HSTROP 9.0 pg/mL Normal 4.0-51.3 [facility] Comment on above: Result Comment: CUT- OFF POINTS HAVE BEEN ESTABLISHED BASED ON THE FOURTH UNIVERSAL DEFINITIONS OF MYOCARDIAL INFARCTION. THE UPPER REFERENCE LIMIT (URL) OF TROPONIN, DEFINED THE 99TH PERCENTILE OF cTnI DISTRIBUTION IN A REFERENCE POPULATION, HAS BEEN CONFIRMED THE DECISION THRESHOLD FOR GA DIAGNOSIS. Performed By: #### H STROPN #### [facility] [address] [place] [address] Dr. Jesus Lunsford HSTROP 9.3 pg/mL Normal 4.0-51.3 [facility] Comment on above: Result Comment: CUT- OFF POINTS HAVE BEEN ESTABLISHED BASED ON THE FOURTH UNIVERSAL DEFINITIONS OF MYOCARDIAL INFARCTION. THE UPPER REFERENCE LIMIT (URL) OF TROPONIN, DEFINED THE 99TH PERCENTILE OF cTnI DISTRIBUTION IN A REFERENCE POPULATION, HAS BEEN CONFIRMED THE DECISION THRESHOLD FOR GA DIAGNOSIS. Performed By: #### H STROPN, BNP, BMP #### [facility] [address] [address] [address] Jesus Lunsford XR CHEST 1 Von [...] by: SILVA ALMANZAR Date: 2022-01-14 12:13 Normal [facility] Vital Signs Date Time Vital Sign Value Performing Clinician Facility 03-15-2025 09:01-0400 Body height 156.21 cm Renate Diallo DO Work Phone: [facility] 03-15-2025 09:01-0400 Body mass index (BMI) [Ratio] 25.2 kg/m2 Renate Diallo DO Work Phone: [facility] 03-15-2025 09:01-0400 Body temperature 97.6 [degF] Renate Diallo DO Work Phone: [facility] 03-15-2025 09:01-0400 Body weight 61.68 kg Renate Diallo DO Work Phone: [facility] 03-15-2025 09:01-0400 Diastolic blood pressure 81 mm[Hg] Renate Diallo DO Work Phone: [facility] 03-15-2025 09:01-0400 Heart rate 91 /min Renate Diallo DO Work Phone: [facility] 03-15-2025 09:01-0400 Respiratory rate 20 /min Renate Diallo DO Work Phone: [facility] 03-15-2025 09:01-0400 SaO2% (BldA) [Mass fraction] 98 % Renate Diallo DO Work Phone: [facility] 03-15-2025 09:01-0400 Systolic blood pressure 144 mm[Hg] Renate Diallo DO Work Phone: [facility] 01-15-2025 14:11-0400 Body height 156.21 cm Renate Diallo DO Work Phone: [facility] 01-15-2025 14:11-0400 Body mass index (BMI) [Ratio] 25 kg/m2 Renate Diallo DO Work Phone: [facility] 01-15-2025 14:11-0400 Body weight 61.23 kg Renate Diallo DO Work Phone: [facility] 01-15-2025 14:11-0400 Diastolic blood pressure 72 mm[Hg] Renate Diallo DO Work Phone: [facility] 01-15-2025 14:11-0400 Heart rate 108 /min Renate Diallo DO Work Phone: [facility] 01-15-2025 14:11-0400 Systolic blood pressure 149 mm[Hg] Renate Diallo DO Work Phone: [facility] 12-10-2024 19:53-0400 Diastolic blood pressure 80 mm[Hg] Renate Diallo DO Work Phone: [facility] 12-10-2024 19:53-0400 Heart rate 108 /min Renate Diallo DO Work Phone: [facility] 12-10-2024 19:53-0400 Respiratory rate 18 /min Renate Diallo DO Work Phone: [facility] 12-10-2024 19:53-0400 SaO2% (BldA) [Mass fraction] 94 % Renate Diallo DO Work Phone: [facility] 12-10-2024 19:53-0400 Systolic blood pressure 125 mm[Hg] Renate Diallo DO Work Phone: [facility] 12-10-2024 16:00-0400 Body temperature 98.4 [degF] Renate Diallo DO Work Phone: [facility] 12-10-2024 16:00-0400 Inhaled oxygen flow rate 1 L/min Renate Diallo DO Work Phone: [facility] 12-10-2024 06:00-0400 Body weight 62.4 kg Renate Diallo DO Work Phone: [facility] 12-08-2024 08:04-0400 Body height 156.21 cm Renate Diallo DO Work Phone: [facility] 11-23-2024 16:10-0400 Body height 156.2 cm Katarzyna Castro MD Work Phone: [facility] 11-23-2024 16:10-0400 Body mass index (BMI) [Ratio] 24.91 kg/m2 Katarzyna Castro MD Work Phone: [facility] 11-23-2024 16:10-0400 Body weight 60.78 kg Katarzyna Castro MD Work Phone: [facility] 11-23-2024 16:10-0400 Diastolic blood pressure 60 mm[Hg] Katarzyna Castro MD Work Phone: [facility] 11-23-2024 16:10-0400 Heart rate 60 /min Katarzyna Castro MD Work Phone: [facility] 11-23-2024 16:10-0400 Systolic blood pressure 102 mm[Hg] Katarzyna Castro MD Work Phone: [facility] 11-17-2024 11:06-0400 Diastolic blood pressure 63 mm[Hg] Renate Diallo DO Work Phone: [facility] 11-17-2024 11:06-0400 Heart rate 97 /min Renate Diallo DO Work Phone: [facility] 11-17-2024 11:06-0400 Systolic blood pressure 149 mm[Hg] Renate Diallo DO Work Phone: [facility] 11-09-2024 11:14-0400 Diastolic blood pressure 64 mm[Hg] Eleanor Phelps MD Work Phone: [facility] 11-09-2024 11:14-0400 Systolic blood pressure 112 mm[Hg] Eleanor Phelps MD Work Phone: [facility] 11-09-2024 11:12-0400 Body height 160 cm Eleanor Phelps MD Work Phone: [facility] 11-09-2024 11:12-0400 Body mass index (BMI) [Ratio] 23.38 kg/m2 Eleanor Phelps MD Work Phone: [facility] 11-09-2024 11:12-0400 Body weight 59.88 kg Eleanor Phelps MD Work Phone: [facility] 11-09-2024 11:12-0400 Heart rate 52 /min Eleanor Phelps MD Work Phone: [facility] 11-01-2024 13:08-0400 Body height 157.5 cm Lissa Murcek DO Work Phone: [facility] 11-01-2024 13:08-0400 Body mass index (BMI) [Ratio] 25.61 kg/m2 Lissa Murcek DO Work Phone: [facility] 11-01-2024 13:08-0400 Body weight 63.5 kg Lissa Murcek DO Work Phone: [facility] 10-30-2024 14:25-0400 Body height 157.5 cm Lissa Murcek DO Work Phone: [facility] 10-30-2024 14:25-0400 Body mass index (BMI) [Ratio] 25.61 kg/m2 Lissa Murcek DO Work Phone: [facility] 10-30-2024 14:25-0400 Body weight 63.5 kg Lissa Murcek DO Work Phone: [facility] 10-26-2024 09:56-0400 Diastolic blood pressure 72 mm[Hg] Katarzyna Castro MD Work Phone: [facility] 10-26-2024 09:56-0400 Heart rate 80 /min Katarzyna Castro MD Work Phone: [facility] 10-26-2024 09:56-0400 Systolic blood pressure 108 mm[Hg] Katarzyna Castro MD Work Phone: [facility] 10-26-2024 09:54-0400 Body height 158.8 cm Katarzyna Castro MD Work Phone: [facility] 10-26-2024 09:54-0400 Body mass index (BMI) [Ratio] 23.94 kg/m2 Katarzyna Castro MD Work Phone: [facility] 10-26-2024 09:54-0400 Body weight 60.33 kg Katarzyna Castro MD Work Phone: [facility] 10-09-2024 12:55-0400 Diastolic blood pressure 71 mm[Hg] [place] [facility] [employer] 10-09-2024 12:55-0400 Heart rate 85 /min [place] [facility] [facility] 10-09-2024 12:55-0400 Respiratory rate 22 /min [place] [facility] [employer] 10-09-2024 12:55-0400 SaO2% (BldA) [Mass fraction] 94 % [place] [facility] [employer] 10-09-2024 12:55-0400 Systolic blood pressure 148 mm[Hg] [place] [facility] 10-09-2024 10:12-0400 Body temperature 98.2 [degF] [place] [facility] [employer] 03-22-2024 17:21-0400 Hourly Rounding Lee Martinez [facility] 03-22-2024 17:21-0400 Promise to Return Lee Martinez [facility] 03-22-2024 16:00-0400 Hourly Rounding Lee Martinez [facility] 03-22-2024 16:00-0400 Promise to Return Lee Juan [facility] 03-22-2024 15:35-0400 Heart rate 86 /min Lee Juan [facility] 03-22-2024 15:35-0400 Respiratory rate 20 /min Lee Juan [facility] 03-22-2024 15:28-0400 Heart rate 85 /min Lee Juan [facility] 03-22-2024 15:28-0400 Respiratory rate 20 /min Lee Juan [facility] 03-22-2024 15:28-0400 SaO2% (BldA) [Mass fraction] 95 % Lee Juan [facility] 03-22-2024 15:00-0400 Hourly Rounding Lee Juan [facility] 03-22-2024 15:00-0400 Promise to Return Lee Juan [facility] 03-22-2024 12:39-0400 Heart rate 78 /min Lee Juan [facility] 03-22-2024 12:39-0400 SaO2% (BldA) [Mass fraction] 95 % Lee Juan [facility] 03-22-2024 12:39-0400 Diastolic blood pressure 68 mm[Hg] Lee Juan [facility] 03-22-2024 12:39-0400 Mean blood pressure 80 mm[Hg] Lee Juan [facility] 03-22-2024 12:39-0400 Systolic blood pressure 104 mm[Hg] Lee Juan [facility] 03-22-2024 12:39-0400 Body temperature 98.06 [degF] Lee Newtoner [facility] 03-22-2024 12:02-0400 Respiratory rate 20 /min Lee Martinez [facility] 03-22-2024 08:16-0400 SaO2% (BldA) [Mass fraction] 96 % Lee Martinez [facility] 03-22-2024 08:06-0400 Body temperature 97.88 [degF] Lee Hathawaycker [facility] 03-22-2024 08:05-0400 Diastolic blood pressure 77 mm[Hg] Lee Hathawaycker [facility] 03-22-2024 08:05-0400 Mean blood pressure 90 mm[Hg] Lee Newtoner [facility] 03-22-2024 08:05-0400 Systolic blood pressure 117 mm[Hg] Lee Newtoner [facility] 03-22-2024 03:50-0400 Diastolic blood pressure 78 mm[Hg] Lee Martinez [facility] 03-22-2024 03:50-0400 Systolic blood pressure 127 mm[Hg] Lee Newtoner [facility] 03-22-2024 01:59-0400 Mean blood pressure 84 mm[Hg] Lee Hathawaycker [facility] 03-22-2024 01:59-0400 Body temperature 98.42 [degF] Lee Hathawaycker [facility] 03-21-2024 19:59-0400 Body temperature 98.24 [degF] Lee Newtoner [facility] 03-21-2024 19:59-0400 Heart rate 99 /min Lee Newtoner [facility] 03-21-2024 19:03-0400 Mean blood pressure 102 mm[Hg] Lee Hathawaycker [facility] 03-21-2024 19:03-0400 Respiratory rate 15 /min Lee Newtoner [facility] 03-21-2024 17:37-0400 Mean blood pressure 95 mm[Hg] Lee Hathawaycker [facility] 03-21-2024 17:37-0400 Respiratory rate 16 /min Lee Hathawaycker [facility] 03-21-2024 16:13-0400 gluc 281 mg/dL Lee Newtoner [facility] 03-21-2024 16:00-0400 Mean blood pressure 75 mm[Hg] Lee Newtoner [facility] 03-21-2024 14:09-0400 gluc 83 mg/dL Lee Newtoner [facility] 03-21-2024 14:09-0400 gluc Lee Newtoner [facility] 03-21-2024 13:54-0400 Body temperature 98.42 [degF] Lee Hathawaycker [facility] 03-21-2024 13:54-0400 Heart rate 101 /min Lee Hathawaycker [facility] 03-21-2024 13:39-0400 gluc 83 mg/dL Lee Hathawaycker [facility] 03-16-2024 10:54-0400 Body height 157.5 cm Eleanor Phelps MD Work Phone: [facility] 03-16-2024 10:54-0400 Body mass index (BMI) [Ratio] 23.41 kg/m2 Eleanor Phelps MD Work Phone: [facility] 03-16-2024 10:54-0400 Body weight 58.06 kg Eleanor Phelps MD Work Phone: [facility] 03-16-2024 10:54-0400 Diastolic blood pressure 84 mm[Hg] Eleanor Phelps MD Work Phone: [facility] 03-16-2024 10:54-0400 Heart rate 125 /min Eleanor Phelps MD Work Phone: [facility] 03-16-2024 10:54-0400 SaO2% (BldA) [Mass fraction] 96 % Eleanor Phelps MD Work Phone: [facility] 03-16-2024 10:54-0400 Systolic blood pressure 127 mm[Hg] Eleanor Phelps MD Work Phone: [facility] 02-14-2024 16:22-0400 Body height 157.5 cm [place] [facility] 02-14-2024 16:22-0400 Body mass index (BMI) [Ratio] 23.41 kg/m2 [place] [facility] 02-14-2024 16:22-0400 Body weight 58.06 kg [place] [facility] 02-10-2024 11:21-0400 Body height 157.5 cm Eleanor Phelps MD Work Phone: [facility] 02-10-2024 11:21-0400 Body mass index (BMI) [Ratio] 23.67 kg/m2 Eleanor Phelps MD Work Phone: [facility] 02-10-2024 11:21-0400 Body weight 58.7 kg Eleanor Phelps MD Work Phone: [facility] 01-13-2024 10:54-0400 Body weight 58.42 kg Eleanor Phelps MD Work Phone: [facility] 01-13-2024 10:54-0400 Diastolic blood pressure 83 mm[Hg] Eleanor Phelps MD Work Phone: [facility] 01-13-2024 10:54-0400 Heart rate 90 /min Eleanor Phelps MD Work Phone: [facility] 01-13-2024 10:54-0400 Systolic blood pressure 141 mm[Hg] Eleanor Phelps MD Work Phone: [facility] 12-31-2022 15:43-0400 Blood Pressure Location [facility] 12-31-2022 15:43-0400 Diastolic blood pressure 66 mm[Hg] [facility] 12-31-2022 15:43-0400 Heart rate 83 /min [facility] 12-31-2022 15:43-0400 Respiratory rate 16 /min [facility] 12-31-2022 15:43-0400 SaO2% (BldA) [Mass fraction] 96 % [facility] 12-31-2022 15:43-0400 Systolic blood pressure 120 mm[Hg] [facility] 12-31-2022 15:07-0400 Blood Pressure Location [facility] 12-31-2022 15:07-0400 Body temperature 97.52 [degF] [facility] 12-31-2022 15:07-0400 Diastolic blood pressure 66 mm[Hg] [facility] 12-31-2022 15:07-0400 Heart rate 83 /min [facility] 12-31-2022 15:07-0400 SaO2% (BldA) [Mass fraction] 96 % [facility] 12-31-2022 15:07-0400 Systolic blood pressure 120 mm[Hg] [facility] 10-13-2022 15:03-0400 Diastolic blood pressure 62 mm[Hg] DO Renate Diallo Work Phone: [facility] 10-13-2022 15:03-0400 Heart rate 74 /min DO Renate Diallo Work Phone: [facility] 10-13-2022 15:03-0400 Respiratory rate 16 /min DO Renate Diallo Work Phone: [facility] 10-13-2022 15:03-0400 SaO2% (BldA) [Mass fraction] 99 % DO Renate Diallo Work Phone: [facility] 10-13-2022 15:03-0400 Systolic blood pressure 122 mm[Hg] DO Renate Diallo Work Phone: [facility] 10-13-2022 13:16-0400 Body height 157.48 cm DO Renate Diallo Work Phone: [facility] 10-13-2022 13:16-0400 Body temperature 98.2 [degF] DO Renate Diallo Work Phone: [facility] 10-13-2022 13:16-0400 Body weight 58.96 kg DO Renate Diallo Work Phone: [facility] 05-12-2022 15:37-0400 Blood Pressure Location [facility] 05-12-2022 15:37-0400 Body temperature 97.7 [degF] [facility] 05-12-2022 15:37-0400 Diastolic blood pressure 80 mm[Hg] [facility] 05-12-2022 15:37-0400 Heart rate 108 /min [facility] 05-12-2022 15:37-0400 SaO2% (BldA) [Mass fraction] 98 % [facility] 05-12-2022 15:37-0400 Systolic blood pressure 136 mm[Hg] [facility] 10-29-2021 16:15-0400 Body weight 58.97 kg Geovanny Schaffer Other [employer] Other Encounters Encounter Date Encounter Type Care Provider Facility Start: 03-26-2025 ambulatory Renate Diallo Facilit y:[facility] Start: 03-15-2025 Registered Recurring Mhd Ata Bass MD -[facility] Acute Work Phone: Start: 03-15-2025 End: 03-15-2025 ambulatory Renate Diallo DO Work Phone: [facility] Work Phone: Start: 03-15-2025 End: 03-15-2025 Patient encounter procedure Noble Tipton MD -[facility] Ambulatory Work Phone: Start: 02-23-2025 End: 02-24-2025 Clinisync Result Encounter Eleanor Phelps MD Work Phone: [facility] External [facility] Unsolicited Start: 02-23-2025 End: 02-24-2025 Clinisync Result Encounter Eleanor Phelps MD Work Phone: [facility] External [facility] Unsolicited Start: 01-15-2025 End: 01-15-2025 Patient encounter procedure Oern Avila APRN -[facility] Work Phone: Start: 12-08-2024 Non-patient / Non-visit Renate Diallo DO Work Phone: [facility] Work Phone: Start: 12-08-2024 End: 12-10-2024 Evaluation and management of inpatient Renate Diallo DO Work Phone: [facility] Work Phone: Start: 12-05-2024 End: 12-05-2024 Patient encounter procedure Renate Diallo DO Work Phone: [facility] Work Phone: Start: 12-05-2024 End: 12-05-2024 ambulatory Renate Diallo DO Work Phone: [facility] Work Phone: Start: 12-05-2024 Encounter for preprocedural laboratory examination Mac Turner [facility] Start: 11-23-2024 End: 11-23-2024 ambulatory KATARZYNA CASTRO [facility] Amb[facility] Start: 11-23-2024 End: 11-23-2024 Office outpatient visit 25 minutes Katarzyna Castro MD Work Phone: [facility] Comment on above: Pre-operative cleara nce; Cardiomyopathy, ischemic; Type 1 diabetes mellitus without complication; Hx of myocardial infarction; Dyspnea on exertion; Mixed hyperlipidemia; Coronary artery disease involving squaxin coronary artery of squaxin heart, unspecified whether angina present; Mitral valve insufficiency, unspecified etiology; Abnormal echocardiogram; Snoring; Depression, unspecified depression type; Anxiety; Tobacco abuse; BMI 24.0-24.9, adult; Hypothyroidism, unspecified type Start: 11-23-2024 End: 11-23-2024 Preoperative state Katarzyna Castro MD Work Phone: [facility] Start: 11-17-2024 End: 11-17-2024 Patient encounter procedure Renate Logan DO Work Phone: [facility] [place] Work Phone: Start: 11-17-2024 End: 11-17-2024 ambulatory Renate Diallo DO Work Phone: [facility] Work Phone: Start: 11-17-2024 Encounter for other preprocedural examination Katarzyna Castro [facility] Start: 11-16-2024 End: 11-16-2024 Patient encounter procedure Renate Diallo DO Work Phone: [facility] Work Phone: Start: 11-16-2024 End: 11-16-2024 Orders Only Sharda Lobo CMA [facility] Comment on above: Aortic valve stenosi s, etiology of cardiac valve disease unspecified (Primary Dx); Cigarette smoker motivated to quit; Stenosis of aorta; 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 ([facility]-HCC); PVD (peripheral vascular disease); PAD (peripheral artery disease) Start: 11-09-2024 End: 11-09-2024 Office outpatient visit 25 minutes Eleanor Phelps MD Work Phone: [facility] Comment on above: Aortic valve stenosi s, etiology of cardiac valve disease unspecified (Primary Dx); Cigarette smoker motivated to quit Start: 11-01-2024 End: 11-01-2024 Office outpatient visit 25 minutes Lissa Malone DO Work Phone: [facility] Comment on above: Neck mass (Primary D x) Start: 11-01-2024 End: 11-01-2024 ambulatory LISSA W MURCEK Not Available Start: 10-30-2024 End: 10-30-2024 ambulatory LISSA W MURCEK Not Available Start: 10-30-2024 End: 10-30-2024 Bamboo flowsheet Lissa Malone DO Work Phone: [facility] Start: 10-30-2024 End: 03-31-2025 Bamboo flowsheet Lissa Fowler Faisal DO Work Phone: [facility] Start: 10-30-2024 End: 10-30-2024 Office outpatient new 45 minutes Lissa Fowler Faisal DO Work Phone: [facility] Comment on above: Neck mass Start: 10-26-2024 End: 10-26-2024 ambulatory [facility] Ambulatory Start: 10-26-2024 End: 10-26-2024 Encounter for other preprocedural examination [facility] Ambulatory Start: 10-26-2024 End: 10-26-2024 Office outpatient new 60 minutes Katarzyna Castro MD Work Phone: [facility] Comment on above: Pre-operative cleara nce (Primary Dx); Cardiomyopathy, ischemic; Mixed hyperlipidemia; Coronary artery disease involving squaxin coronary artery of squaxin heart, unspecified whether angina present; Mitral valve insufficiency, unspecified etiology; Dyspnea on exertion; Hx of myocardial infarction; Abnormal EKG; Abnormal echocardiogram; Chest pain, unspecified type; Claudication; Ulcerative colitis with complication, unspecified location (Multi); Depression, unspecified depression type; Type 2 diabetes mellitus without complication, with long-term current use of insulin (Multi); Malignant neoplasm of left lung, unspecified part of lung (Multi); Anxiety; Acute cataract; Snoring; BMI 23.0-23.9, adult; Tobacco abuse Start: 10-26-2024 End: 10-29-2024 Preoperative state Katarzyna Castro MD Work Phone: [facility] Work Phone: Start: 10-09-2024 End: 10-11-2024 ambulatory DEBI Olmos TENZIN [facility] Start: 10-09-2024 End: 10-11-2024 Subsequent hospital visit by physician [place] [facility] Room 8 [facility] Comment on above: Arrived Start: 10-09-2024 End: 10-11-2024 ambulatory COLE REEVESCANO [facility] Start: 10-09-2024 End: 10-11-2024 Subsequent hospital visit by physician [place] Xray Room 7 [facility] Comment on above: Mass of left lung Start: 10-09-2024 End: 10-11-[address] 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 Start: 08-16-2024 End: 08-18-2024 Subsequent hospital visit by physician Samuel Villarreal Pet (Mobile) [facility] Imaging CT Scan Comment on above: Mass of left lung; Abnormal CT scan, chest Start: 03-23-2024 End: 03-29-2024 Refill Eleanor Phelps MD Work Phone: [facility] Start: 03-23-2024 End: 03-31-2024 ambulatory DAY WORKER Flora Escalera Facility:CD:[id number] Start: 03-21-2024 End: 03-22-2024 ambulatory Lee Martinez Facility:[facility] Start: 03-21-2024 Emergency department patient visit Han Olivera Facility: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 ([facility]) (Primary Dx); Cigarette smoker motivated to quit; Stenosis of aorta Start: 03-15-2024 End: 03-15-2024 ambulatory Flora Diaz José Miguel Facility:[facility] Start: 02-24-2024 End: 02-24-2024 Orders Only [facility] Comment on above: PVD (peripheral vasc ular disease) ([facility]) (Primary Dx); 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 ([facility]) Start: 02-23-2024 End: 02-23-2024 Refill Sharda Lobo [facility] Start: 02-14-2024 End: 02-14-2024 [facility] Phone Call Provider 4 [facility] Start: 02-10-2024 End: 02-10-2024 Office outpatient visit 25 minutes Eleanor Phelps MD Work Phone: [facility] Comment on above: 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 ([facility]) (Primary Dx); Cigarette smoker motivated to quit; Aortic valve stenosis, etiology of cardiac valve disease unspecified Start: 01-25-2024 End: 01-25-2024 Orders Only Eleanor Phelps MD Work Phone: [facility] Comment on above: PAD (peripheral phil ry disease) ([facility]) (Primary Dx) Start: 01-24-2024 End: 01-24-2024 Telephone encounter Eleanor Phelps MD Work Phone: [facility] Start: 01-13-2024 End: 01-13-2024 Telephone encounter Tre Coger [facility] Comment on above: Med Refill Start: 01-13-2024 End: 01-13-2024 Office outpatient new 45 minutes Eleanor Phelps MD Work Phone: [facility] Comment on above: Cigarette smoker mot ivated to quit (Primary Dx); PVD (peripheral vascular disease) ([facility]); 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 ([facility]) Start: 01-03-2024 ambulatory Renate DIALLO Facilit y:[facility] Start: 09-24-2023 ambulatory Flora L José Miguel Facility: [facility] Start: 09-15-2023 End: 09-15-2023 ambulatory Flora L José Miguel Facility:[facility] Start: 07-28-2023 End: 07-28-2023 ambulatory Oren Jones Other [employer] Other Start: 07-28-2023 Telephone encounter Oren Davis [facility] Start: 06-09-2023 End: 06-09-2023 ambulatory Flora L José Miguel Facility:[facility] Start: 05-25-2023 ambulatory Flora José Miguel [facility] Start: 05-25-2023 End: 05-25-2023 ambulatory Flora L José Miguel Facility:[facility] Start: 03-18-2023 End: 03-18-2023 ambulatory Oren Jones Other [employer] Other Start: 03-18-2023 Telephone encounter [facility] Start: 02-16-2023 End: 02-16-2023 Patient encounter procedure MILO CAMPOS [facility] [place] Start: 01-22-2023 End: 01-22-2023 Patient encounter procedure Renate DIALLO [facility] Start: 01-19-2023 End: 01-21-2023 Pre-admission assessment Renate DIALLO [facility] Start: 01-14-2023 End: 01-14-2023 ambulatory Oren Jones Other [employer] Other Start: 01-14-2023 Telephone encounter [facility] Start: 12-31-2022 End: 12-31-2022 Patient encounter procedure Renate Bianca [facility] Start: 12-31-2022 End: 12-31-2022 Well adult monitoring check done Renate DIALL[facility] Start: 11-18-2022 End: 11-18-2022 ambulatory Oren Jones Other [employer] Other Start: 11-18-2022 Telephone encounter [facility] Start: 10-22-2022 End: 10-22-2022 ambulatory Geovanny Schaffer Other [employer] Other Start: 10-22-2022 Telephone encounter Geovanny [facility] Start: 10-14-2022 End: 10-14-2022 ambulatory Geovanny Schaffer Other [employer] Other Start: 10-14-2022 Telephone encounter Geovanny [facility] Start: 10-13-2022 End: 10-13-2022 Admission to same day surgery center DO Renate Diallo Work Phone: [facility] Work Phone: Start: 10-13-2022 End: 10-13-2022 ambulatory DO Renate Diallo Work Phone: [facility] Work Phone: Start: 09-22-2022 End: 09-22-2022 ambulatory Geovanny Schaffer Other [employer] Other Start: 09-22-2022 Telephone encounter Geovanny BENNETT [facility] Start: 06-03-2022 End: 06-03-2022 Patient encounter procedure Renate DIALLO [facility] Start: 05-12-2022 End: 05-12-2022 Patient encounter procedure Renate DIALLO [facility] Start: 01-14-2022 End: 01-15-[address] NONE LISTED REQUEST Facility: Start: 11-13-2021 End: 11-13-2021 ambulatory Geovanny Schaffer Other [employer] Other Start: 11-13-2021 Telephone encounter Geovanny BENNETT [facility] Start: 10-29-2021 End: 10-29-2021 ambulatory Geovanny Schaffer Other [employer] Other Start: 10-29-2021 FQ visit new patient Geovanny Schaffer [facility] Procedures Date Procedure Procedure Detail Performing Clinician Start: 02-23-2025 SEGMENTAL BLOOD PRESSURE Eleanor Phelps MD Work Phone: Start: 12-10-2024 Plain chest X-ray Grant Diallo DO Work Phone: Start: 12-10-2024 Plain chest X-ray Grant Diallo DO Work Phone: Start: 12-09-2024 Plain chest X-ray Grant Diallo DO Work Phone: Start: 12-08-2024 Plain chest X-ray Grnat Diallo DO Work Phone: Start: 12-08-2024 Incision of chest wall Renate Diallo DO Work Phone: Start: 12-05-2024 Antibody screen Renate Diallo Comment on above: Order Comment: Date of Surgery: [id number] Result Comment: PERF ORMED BY: [facility] [place] [address] PATHOLOGIST STUFFED CASING TIER ELEANOR HERNÁNDEZ M.D. Start: 11-17-2024 Radionuclide myocard ial perfusion stress study Renate Diallo DO Work Phone: Start: 11-16-2024 Mammography of left breast Renate Diallo DO Work Phone: Start: 11-16-2024 Ultrasonography of l eft breast Renate Diallo DO Work Phone: Start: 10-26-2024 Ecg routine ecg w/le ast 12 lds w/i&r Katarzyna Castro MD Work Phone: Start: 10-09-2024 Radiologic exam ches t 2 views Debi Dave MD Work Phone: Start: 10-09-2024 Radiologic exam ches t 2 views Cole Tim PA-C Work Phone: Start: 10-09-2024 Gluc bld gluc mntr d ev cleared fda spec home use Debi Dave MD Work Phone: Start: 10-09-2024 CT Guidance for biop sy of Lung Cole Tim PA-C Work Phone: Start: 09-26-2024 US AORTA Eleanor Phelps MD Work Phone: Start: 08-16-[address] attenuation skull base mid-thigh Renate Diallo DO Work Phone: Start: 10-13-2022 Flexible fiberoptic sigmoidoscopy DO Renate Diallo Work Phone: Start: 01-17-2018 Caudal CHAVO 1 Renate GR ANT Comment on above: 80% reflief for abou t 3 weeks. Start: 12-06-2017 caudal CHAVO 2 Renate DIAZ ALCANTAR Comment on above: 80% relief for about 3 weeks Start: 01-17-2014 Local anesthetic fac et joint nerve block Renate DIALLO Comment on above: Right L3-S1 Start: 08-24-2013 Colonoscopy North (Mob ile) Start: 07-17-2013 right small trigger [...] surgery Renate GRIFFIN Release of trigger finger Gr ruben DIALLO Thyroidectomy Renate DIALLO Vaccine refused by patient Vaccination not carried out Renate DIALLO Vaccine refused by patient Vaccination not carried out Renate DIALLO Plan of Treatment Date Care Activity Detail Author Start: 10-14-2027 Screening for malignant neoplasm of colon [facility] Start: 07-18-2026 Screening for malignant neoplasm of breast [facility] Start: 11-09-2025 Adult BMI Screening Adult BMI Screening [facility] Start: 11-09-2025 Tobacco Screening Tobacco Screening [facility] Start: 10-23-2025 Screening for malignant neoplasm of cervix [facility] Start: 10-09-2025 Screening for malignant neoplasm of lung Lung Cancer Screening &/or Counseling [facility] Start: 08-16-2025 Screening for malignant neoplasm of lung Lung Cancer Screening &/or Counseling [facility] Start: 06-27-2025 Hemoglobin A1c measurement A1C test (Diabetic or Prediabetic) [facility] Start: 06-07-2025 End: 06-07-2025 Patient encounter procedure 06/07/2025 3:15 PM EST Office Visit [facility] [address] [place] [address] Katarzyna Castro MD [address] [facility] [address] [place] [address] [facility] Start: 04-04-2025 Depression Monitoring Depression Monitoring [facility] Start: 04-02-2025 Influenza vaccination [facility] Start: 03-28-2025 Diabetic foot examination Diabetic foot exam [facility] Start: 03-16-2025 Adult BMI Screening Adult BMI Screening [facility] Start: 03-16-2025 Tobacco Screening Tobacco Screening [facility] Start: 02-21-2025 Adult BMI Screening Adult BMI Screening [facility] Start: 02-21-2025 Tobacco Screening Tobacco Screening [facility] Start: 02-09-2025 Adult BMI Screening Adult BMI Screening [facility] Start: 01-20-2025 Adult BMI Screening Adult BMI Screening [facility] Start: 12-26-2024 End: 12-26-2024 Patient encounter procedure [facility] Comment on above: 6 mo f/u Start: 12-10-2024 [facility] Start: 12-08-2024 Hospital admission [facility] Start: 12-08-2024 Consultation [facility] Start: 12-08-2024 Referral to clinical leno sewer [facility] Start: 11-23-2024 End: 11-23-2025 CBC panel - Blood by Automated count CBC Lab Routine Cardiomyopathy, ischemic Type 1 diabetes mellitus without complication Hx of myocardial infarction Expected: 11/23/2024, Expires: 11/23/2025 [facility] Work Phone: Comment on above: Expected: 11/23/2024, Expires: Start: 11-23-2024 End: 11-23-2025 Comprehensive metabolic 2000 panel - Serum or Plasma Comprehensive Metabolic Panel Lab Routine Type 1 diabetes mellitus without complication Expected: 11/23/2024, Expires: 11/23/2025 [facility] Service [facility] Work Phone: Comment on above: Expected: 11/23/2024, Expires: Start: 11-23-2024 End: 11-23-2025 Lipid 1996 panel - Serum or Plasma Lipid Panel Lab Routine Mixed hyperlipidemia Expected: 11/23/2024, Expires: 11/23/2025 [facility] Work Phone: Comment on above: Expected: 11/23/2024, Expires: Start: 11-23-2024 End: 11-23-2025 Thyrotropin [Units/volume] in Serum or Plasma Thyroid Stimulating Hormone Lab Routine Dyspnea on exertion Mixed hyperlipidemia Hypothyroidism, unspecified type Expected: 11/23/2024, Expires: 11/23/2025 [facility] Work Phone: Comment on above: Expected: 11/23/2024, Expires: Start: 11-17-2024 Radionuclide myocardial perfusion stress study NM german perf SPECT rest & str [facility] Start: 11-09-2024 End: 11-09-2025 US.doppler Extremity arteries - bilateral for physiologic artery study Vas art doppler lwr bilat mult lev/PVR Vascular Ultrasound Routine Aortic valve stenosis, etiology of cardiac valve disease unspecified Cigarette smoker motivated to quit Expected: 11/09/2024, Expires: 11/09/2025 [facility] Work Phone: Comment on above: Expected: 11/09/2024, Expires: Start: 11-01-2024 End: 11-01-2024 Patient encounter procedure 11/01/2024 1:45 PM EDT Office Visit [facility] [place] [address] [place] [id number] Lissa Malone, [address] [place] [address] CARI WORRELL DAREN Start: 10-30-2024 End: 10-30-2025 CT Neck W contrast IV CT soft tissue neck w IV contrast Imaging STAT Neck mass Expected: 10/30/2024, Expires: 10/30/2025 [facility] Work Phone: Comment on above: Expected: 10/30/2024, Expires: Start: 10-26-2024 End: 10-26-2025 Alanine aminotransferase [Enzymatic activity/volume] in Serum or Plasma by With P-5'-P Alanine Aminotransferase Lab Routine Mixed hyperlipidemia Expected: 10/26/2024, Expires: 10/26/2025 [facility] Work Phone: Comment on above: Expected: 10/26/2024, Expires: Start: 10-26-2024 End: 10-26-2025 Aspartate aminotransferase [Enzymatic activity/volume] in Serum or Plasma by With P-5'-P Aspartate Aminotransferase Lab Routine Mixed hyperlipidemia Expected: 10/26/2024, Expires: 10/26/2025 [facility] Work Phone: Comment on above: Expected: 10/26/2024, Expires: Start: 10-26-2024 End: 10-26-2025 Basic metabolic 2000 panel - Serum or Plasma Basic Metabolic Panel Lab Routine Cardiomyopathy, ischemic Type 2 diabetes mellitus without complication, with long-term current use of insulin (Multi) Expected: 10/26/2024 (Approximate), Expires: 10/26/2025 [facility] Work Phone: Comment on above: Expected: 10/26/2024 (Approximate), Expi res: 10/26/2025 Start: 10-26-2024 End: 10-26-2025 CBC panel - Blood by Automated count CBC Lab Routine Cardiomyopathy, ischemic Coronary artery disease involving squaxin coronary artery of squaxin heart, unspecified whether angina present Expected: 10/26/2024, Expires: 10/26/2025 [facility] Work Phone: Comment on above: Expected: 10/26/2024, Expires: Start: 10-26-2024 End: 10-26-2025 Hemoglobin A1c/Hemoglobin.total in Blood Hemoglobin A1C Lab Routine Type 2 diabetes mellitus without complication, with long-term current use of insulin (Multi) Expected: 10/26/2024 (Approximate), Expires: 10/26/2025 [facility] Work Phone: Comment on above: Expected: 10/26/2024 (Approximate), Expi res: 10/26/2025 Start: 10-26-2024 End: 10-26-2025 Lipid 1996 panel - Serum or Plasma Lipid Panel Lab Routine Mixed hyperlipidemia Expected: 10/26/2024, Expires: 10/26/2025 [facility] Work Phone: Comment on above: Expected: 10/26/2024, Expires: Start: 10-26-2024 End: 10-26-2025 Magnesium [Mass/volume] in Serum or Plasma Magnesium Lab Routine Cardiomyopathy, ischemic Coronary artery disease involving squaxin coronary artery of squaxin heart, unspecified whether angina present Expected: 10/26/2024, Expires: 10/26/2025 [facility] Work Phone: Comment on above: Expected: 10/26/2024, Expires: Start: 10-26-2024 End: 10-26-2026 NM Heart Perfusion W stress and W radionuclide IV Nuclear Stress Test Cardiac Nuclear Medicine Routine Pre-operative clearance Cardiomyopathy, ischemic Coronary artery disease involving squaxin coronary artery of squaxin heart, unspecified whether angina present Dyspnea on exertion Chest pain, unspecified type Expected: 10/26/2024 (Approximate), Expires: 10/26/2026 [facility] Service Area Work Phone: Comment on above: Expected: 10/26/2024 (Approximate), Expi res: 10/26/2026 Start: 10-26-2024 End: 10-26-2025 Thyrotropin [Units/volume] in Serum or Plasma Thyroid Stimulating Hormone Lab Routine Type 2 diabetes mellitus without complication, with long-term current use of insulin (Multi) Expected: 10/26/2024 (Approximate), Expires: 10/26/2025 [facility] Work Phone: Comment on above: Expected: 10/26/2024 (Approximate), Expi res: 10/26/2025 Start: 10-26-2024 End: 10-26-2026 US Heart Transthoracic Transthoracic Echo Complete Echocardiography Routine Cardiomyopathy, ischemic Coronary artery disease involving squaxin coronary artery of squaxin heart, unspecified whether angina present Mitral valve insufficiency, unspecified etiology Dyspnea on exertion Chest pain, unspecified type Expected: 10/26/2024 (Approximate), Expires: 10/26/2026 [facility] Work Phone: Comment on above: Expected: 10/26/2024 (Approximate), Expi res: 10/26/2026 Start: 10-26-2024 End: 10-26-2024 Patient encounter procedure 10/26/2024 10:50 AM EDT Office Visit [facility] [address] [place] [address] [place] [address] [place] [address] , [place] [id number] [facility] Start: 10-23-2024 End: 10-23-2024 Patient encounter procedure 10/23/2024 1:30 PM EDT Office Visit [facility] Thor[facility] Surgery [address] [place] [address] Mac Turner MD [address] [place] [address] LIGHT INDUSTRIAL, iatrogenic pneumothorax [facility] Comment on above: LIGHT INDUSTRIAL, iatrogenic pneumothorax Start: 10-04-2024 End: 10-04-2025 US.doppler Aorta and Iliac artery - bilateral Vas aorta/iliac duplex complete Vascular Ultrasound Routine Stenosis of aorta 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 (CMS-HCC) Cigarette smoker motivated to quit Expected: 10/04/2024, Expires: 10/04/2025 [facility] Work Phone: Comment on above: Expected: 10/04/2024, Expires: Start: 09-16-2024 End: 03-16-2025 US.doppler Aorta and Iliac artery - bilateral Vas aorta/iliac duplex complete Vascular Ultrasound Routine 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 Start: 08-02-2024 Annual Wellness Visit (Medicare Advantage) Annual Wellness Visit (Medicare Advantage) [facility] Start: 04-02-2024 COVID-19 Vaccine ( season) COVID-19 Vaccine ( season) [facility] Start: 04-02-2024 COVID-19 Vaccine ( season) COVID-19 Vaccine ( season) [facility] Start: 04-02-2024 Influenza vaccination [facility] Start: 03-09-2024 End: 03-09-2024 Patient encounter procedure 03/09/2024 8:40 AM EDT Office Visit [facility] [address] [place] [phone] Eleanor Phelps MD [address], [address] [place] [address] [facility] Start: 03-02-2024 Influenza vaccination Flu vaccine (#1) [facility] Start: 02-22-2024 End: 02-22-2024 Admission to same day surgery center 02/22/2024 1:30 PM EDT - 02/22/2024 3:30 PM EDT Surgery [facility] Special Procedures [address] [place] [address] Eleanor Phelps MD [address], [address] [place] [address] AORTOGRAM WITH RUNOFF (AORTIC STENT WITH SHOCKWAVE INTRAVASCULAR LITHOTRIPSY) [facility] Procedures Comment on above: AORTOGRAM WITH RUNOFF (AORTIC STENT WITH SHOCKWAVE INTRAVASCULAR LITHOTRIPSY) Start: 02-22-2024 End: 02-22-2024 ANGIOGRAM EXTREMITY LOWER ANGIOGRAM EXTREMITY LOWER CRITICAL LIMB ISCHEMIA LOWER EXTREMITY LEFT WITH GANGRENE 02/22/2024 1:30 PM EDT [facility] Start: 02-22-2024 End: 02-22-2024 AORTOGRAM WITH RUNOFF AORTOGRAM WITH RUNOFF CRITICAL LIMB ISCHEMIA LOWER EXTREMITY LEFT WITH GANGRENE 02/22/2024 1:30 PM EDT [facility] Start: 02-22-2024 Subsequent hospital visit by physician 02/22/2024 1:30 PM EDT Hospital Encounter [facility] Procedures [address] [place] [address] Eleanor Phelps MD [address], [address] [place] [address] [facility] Procedures Start: 01-27-2024 End: 01-27-2024 Patient encounter procedure 01/27/2024 11:40 AM EDT Office Visit [facility] [place] [address] Eleanor Phelps MD [address], [address] [address] [facility] Start: 08-24-2023 Screening for malignant neoplasm of colon [facility] Start: 10-13-2022 [facility] Start: 2015 Administration of varicella zoster vaccine Zoster (Shingles) Vaccine (1 of 2) [facility] Start: 2015 Shingles vaccine (1 of 2) Shingles vaccine (1 of 2) [facility] Start: 2015 Zoster Vaccines (1 of 2) Zoster Vaccines (1 of 2) [facility] Start: 08-20-2012 GFR test (Diabetes, CKD 3-4, OR last GFR 15-59) GFR test (Diabetes, CKD 3-4, OR last GFR 15-59) [facility] Start: 2010 Screening for malignant neoplasm of colon [facility] Start: 2005 Screening for malignant neoplasm of breast Mammogram [facility] Start: 1987 DTaP/Tdap/Td Vaccines (1 - Tdap) DTaP/Tdap/Td Vaccines (1 - Tdap) [facility] Start: 1986 Screening for malignant neoplasm of cervix [facility] Start: 01-09-1984 DTaP,Tdap and Td Vaccines (1 - Tdap) DTaP,Tdap and Td Vaccines (1 - Tdap) [facility] Start: 01-09-1984 DTaP/Tdap/Td vaccine (1 - Tdap) DTaP/Tdap/Td vaccine (1 - Tdap) [facility] Start: 01-09-1984 Hepatitis B vaccine (1 of 3 - 19+ 3-dose series) Hepatitis B vaccine (1 of 3 - 19+ 3-dose series) [facility] Start: 01-09-1984 Hepatitis B Vaccines (1 of 3 - 19+ 3-dose series) Hepatitis B Vaccines (1 of 3 - 19+ 3-dose series) [facility] Start: 01-09-1984 Pneumococcal 50+ years Vaccine (1 of 2 - PCV) Pneumococcal 50+ years Vaccine (1 of 2 - PCV) [facility] Start: 01-09-1984 Pneumococcal vaccination Pneumococcal Vaccine (1 of 2 - PCV) [facility] Start: 1983 Adult BMI Screening Adult BMI Screening [facility] Start: 1983 Glaucoma screening Diabetic retinal exam [facility] Start: 1983 Hepatitis C screening [facility] Start: 1983 Urine screening for protein Diabetic Alb to Cr ratio (uACR) test [facility] Start: 01-09-1980 HIV screening HIV screen [facility] Start: 1977 Depression Screening Depression Screening [facility] Start: 1977 Tobacco Screening Tobacco Screening [facility] Start: 1975 Glaucoma screening Diabetes: Retinopathy Screening [facility] Start: 1975 Lipid panel Lipids [facility] Start: 1971 Pneumococcal 0-64 years Vaccine (1 of 2 - PCV) Pneumococcal 0-64 years Vaccine (1 of 2 - PCV) [facility] Start: 1966 Hepatitis B Surface Antibody Hepatitis B Surface Antibody [facility] Start: 1966 MMR Vaccines (1 of 1 - Standard series) MMR Vaccines (1 of 1 - Standard series) [facility] Start: 1965 Annual wellness visit Welcome to Medicare Visit [facility] Start: 1965 Cyanocobalamin vitamin b-12 Vitamin B-12 [facility] Start: 1965 Diabetes: Celiac Disease Screening Diabetes: Celiac Disease Screening [facility] Start: 1965 Hemoglobin A1c measurement Diabetes: Hemoglobin A1C [facility] Start: 1965 HIV screening HIV Screening [facility] Start: 1965 Lipid panel Lipid Panel [facility] Start: 1965 Screening for malignant neoplasm of colon [facility] Start: 1965 Screening for osteoporosis Bone Density Scan [facility] Start: 1965 TB Test TB Test [facility] Start: 1965 Thyroid stimulating hormone measurement TSH Level [facility] Start: 1965 Tobacco Counseling Tobacco Counseling [facility] Start: 1965 Urine screening for protein Diabetes: Urine Protein Screening [facility] Start: 1965 Vitamin D25-OH Vitamin D25-OH [facility] Comprehensive metabo lic 1999 panel - Serum or Plasma [facility] End: 01-24-2025 Creatinine includes GFR, serum Creatinine includes GFR, serum Lab Routine PAD (peripheral artery disease) ([facility]) 1 Occurrences starting 01/25/2024 until 01/24/2025 [facility] Work Phone: Comment on above: 1 Occurrences starting 01/25/2024 until 01/24/2025 MR Unspecified body region [facility] End: 10-09-2024 Pathology study [facility] Comment on above: 1 Occurrences starting 10/09/2024 until 10/09/2024 Once for 1 Occurrenc es starting 10/09/2024 until 10/09/2024 Pathology study Surgical Patholo gy Lab STAT 10/09/2024 12:00 AM EDT [facility] Patient Education Know your Meds [facility] Work Phone: Patient referral [facility] Work Phone: [facility] Immunizations Immunization Date Immunization Notes Care Provider Hazel hansen NEGATED: Highlighted row has not occurred!09-02-2021 influenza virus vaccine, unspecified formulation Renate DIALLO [facility] NEGATED: Highlighted row has not occurred!09-05-2020 influenza virus vaccine, unspecified formulation Renate DIALLO [facility] [place] Payers Date Payer Category Payer Unknown [id number] 2024 Medicare [id number] 2024 Self-pay [id number] 2024 Unknown [id number] 2023 Unknown [employer] P [employer]ANS [employer] MEDICARE ADVANTAGE [id number] 2023-Present [phone] [address] [place] [address] [id number]. [id number] 2020 Medicare [employer] LANS MEDICARE [employer]ED [employer] MEDICARE ADVANTAGE [id number] 2020-Present [phone] [address] [place] [address] [id number]. [id number] 2020 Medicare (Managed Care) 1.2. [id number]. [id number] 2020 Medicare O [facility] 1.2.840.772972.1.13.424.2. 7.9.181957.120.315 2020 Unknown [id number] 1965 Unknown [id number] .1.404601.3.579.2. 593 1965 Unknown [id number] 2840.1.090282.3.579.2. 72 1965 Unknown [id number] 2840.1.538351.3.579.2. 72 1965 Unknown [id number] 840.1.459463.3.579.2. 727 1965 Unknown [id number] 09.17.830.1.605133.3.579.2. 727 1965 Unknown [id number] 2.16.840.1.713613.3.579.2. 727 1965 Unknown [id number] 2.16.840.1.140470.3.579.2. 727 1965 Unknown [id number] 2.16.840.1.192235.3.579.2. 727 1965 Unknown [id number] 2.16.840.1.351773.3.579.2. 727 1965 Unknown [id number] 2.16.840.1.935217.3.579.2. 727 1965 Unknown [id number] 2.16.840.1.511690.3.579.2. 727 1965 Unknown [id number] 2.16.840.1.160889.3.579.2. 727 1965 Unknown [id number] 2.16.840.1.177146.3.579.2. 727 1965 Unknown [id number] 2.16.840.1.935542.3.579.2. 182 1965 Unknown [id number] 2.16.840.1.781547.3.579.2. 182 1965 Unknown [id number] 2.16.840.1.016409.3.579.2. 182 1965 Unknown [id number] 2.16.840.1.193070.3.579.2. 182 1965 Unknown [id number] 2.16.840.1.617205.3.579.2. 1259 1965 Unknown [id number] 2.16.840.1.568975.3.579.2. 1259 1965 Unknown [id number] 2.16.840.1.160689.3.579.2. 1259 1965 Unknown [id number] 2.16.840.1.821445.3.579.2. 1244 1965 Unknown [id number] 2.16.840.1.863532.3.579.2. 1244 Medicare Self Pay [id number] Unknown [id number] Unknown Regular Auto/Liability [id number] Unknown MMO [id number] Unknown [id number] 2.16.840.1.856149.3.579.2. 531 Unknown [id number] 2.16.840.1.353271.3.579.2. 531 Unknown [id number] 2.16.840.1.766905.3.579.2. 531 Unknown [id number] 2.16.840.1.161780.3.579.2. 531 Unknown [id number] 2.16.840.1.874409.3.579.2. 531 Social History Date Type Detail Facility Tobacco smoking stat [facility] Unknown if ever smoked [facility] Start: 1965 Sex Assigned At Female [facility] Start: 04-04-2024 End: 11-01-2024 Sex Assigned At [facility] [employer] Other Start: 05-12-2022 End: 05-25-2023 Tobacco smoking status [facility] smoking status Never [facility] Start: 10-13-2022 End: 12-08-2024 Tobacco smoking status NHIS Smoker (finding) [facility] Start: 03-28-2024 End: 03-15-2025 Tobacco smoking status MDIS Smokes tobacco daily [facility] Start: 08-02-1993 History of tobacco use Cigarette Smoker [facility] Start: 03-28-2024 End: 11-01-2024 Cigarettes smoked current (pack per day) - Reported 1 [employer] Work Phone: Start: 03-28-2024 End: 10-30-2024 Tobacco use and exposure Smokeless tobacco [email or web address] Start: 06-27-2024 End: 11-23-2024 Alcoholic beverage intake Current drinker of alcohol (finding) [facility] [employer] How often to you hav e a drink containing alcohol? 4 or more times a week [employer] Work Phone: How many standard drinks containing alcohol do you have on a typical day? 1 or 2 [employer] How often do you hav e 6 or more drinks on 1 occasion? Never [employer] (I/We) worried santiago er (my/our) food would run out before (I/we) got money to buy more. Never true [employer] At any time in the past 12 months, were you homeless or living in fpc [including now]? No [employer] Start: 1965 Sex assigned at Not on file [employer] [facility] [facility] smoking consumption unknown [facility] History of tobacco use Passive smoker [employer] [facility] Start: 02-14-2024 Tobacco Comment HAS CUT BACK, SMOKED FOR 45 YEARS AVERAGE 1 PPD [facility] Start: 02-14-2024 Alcohol Comment 2-3 WINE NIGHTLY [facility] [employer] [facility] Start: 03-05-2015 End: 12-10-2024 Sex Female (finding) [employer] [facility] Start: 10-16-2024 End: 11-23-2024 Exposure to SARS-CoV-2 (event) Not sure [facility] Start: 10-30-2024 End: 11-01-2024 Alcoholic beverage intake Ex-drinker (finding) [facility] Procedure Code Equipment Code Equipment Origin al Text Equipment Identifier Dates Thoracotomy Extra-gynaecolog ical surgical mesh, synthetic polymer, bioabsorbable [id number] FDA Start: 12-08-2024 One Touch Delica Plus Lancets 33G, See [...] BLOO D SUGAR 5 TIMES DAILY DX E11. Start: 10-11-2022 One Touch Delica Plus Lancets 33G, See [...] blood sugars 5+ times daily. DX: E11.69, [id number], Supply, 158, cm, 05/12/22 15:40:00 EDT, Height/Length Dosing, 59.8, kg, 05/12/22 15:40:00 EDT, Weight... Start: 05-12-2022 One Touch Delica Plus Lancets 33G, See Instructions, 500 EA, 5, Use as directed. Testing blood sugars 5+ times daily. DX: E11.69, [id number], Supply, 158, cm, 05/12/22 15:40:00 EDT, [...] blood sugars 5+ times daily. DX: E11.69, [id number], Supply, 158, cm, 05/12/22 15:40:00 EDT, [...] 16sq Mm 8fr 29mm Bln Expandable Gw [place] [employer] - [id number] - [id number] Start: 02-22-2024 Comment on above: Description: AORTIC STENT Test once daily & as needed for symptoms of irregular blood glucose. Dispense sufficient amount for indicated testing frequency plus additional to accommodate PRN testing needs. ONE TOUCH ULTRA [id number] Start: 09-26-2024 Goals Date Patient Goal Desired Activity /State Functional Status Date Assessment Result Facility 12-10-2024 Functional status Patient is Pro gressing Toward Baseline [facility] Work Phone: 03-21-2024 Functional Status N/A [facility] 03-21-2024 Functional Status [facility] 12-31-2022 Functional Status N/A [facility] 05-12-2022 Functional Status N/A [facility] Mental Status Date Assessment Result Facility 12-10-2024 Cognitive function Cognitive Sta tus Patient at Baseline [facility] Work Phone: Clinical Notes 10-29-2021 to 03-15-2025 Note Date & Type Note Facility 03-15-2025 Progress note [facility] 01-15-2025 Evaluation note Diagnosis Onset Date Resolution Colitis acute January 15 2:06pm Mass of left lung acute January 152024 2:06pm Non-small cell lung cancer acute March 15 8:51am Non-small cell lung cancer acute March 15 9:38am [facility] Work Phone: 1(384) 586-652105-11-2025 Progress note Author Shanika Fosterdad [facility] Note Date/Time December 10, 2024 2:43p m [facility] [address] [place] [address] Pulmonology Progress Note Signed Patient: Cari Hale MR#: [id number] : 1965 Acct:[id number] Age/Sex: 59 / F Adm Date: 5 Loc: Room: 9C5811-5 Type: ADM IN Attending Dr: Mac Turner MD Copies to: ~ Date of Service: 12/10/2024 Subjective Subjective Narrative: Had a chest tube clamped yesterday evening but called nursing staff around 2 AM complaining of chest pain and worsening shortness of breath. Chest x-ray was done and the chest tube was unclamped. She has mild serosanguineous chest tube output but no airleak on exam today. Exam Physical Exam Vital Signs: Temp Pulse Resp BP Pulse Ox O2 Del Method O2 Flow Rate 98.7 F 108 H 20 139/55 L 96 Room Air 2 12/10/24 08:00 12/10/24 11:26 12/10/24 11:26 12/10/24 08:00 12/10/24 08:00 12/10/24 08:00 12/10/24 08:00 Narrative: General: Awake and alert, appears in no acute respiratory distress Neck: Supple. Pulmonary: Diminished breath sounds to both lung lovelace without wheezing. Cardiovascular: Regular rate and rhythm. No murmurs Abdomen: Soft, nontender and nondistended. Extremities: No edema. Objective Intake and Output I&O - Last 24 Hours: Intake & Output 12/09/24 12/10/24 12/10/24 23:59 07:59 15:59 Intake Total 180 / 1280 200 / 1200 1000 / 1200 Output Total 340 / 809 150 / 150 Balance -160 / 471 50 / 1050 1000 / 1050 Weight 62.4 kg Imaging and Cardiology Chest x-ray: Status: image reviewed by me (Chest x-ray was reviewed and showed no evidence of pneumothorax.) Assessment/Plan Assessment/Plan (1) Lung mass: Plan: With concern for underlying malignancy. Underwent surgical intervention on Wednesday with left thorascopic upper lobe wedgeresection and mediastinal dissection with chest tube in place and tolerating relatively well. Had her chest tube and clamped around 2 AM but chest x-ray done prior to that showed no evidence of pneumothorax and continues to have no signs of air leak today. I removed her chest tube today and she tolerated relatively well. Repeated chest x-ray after chest tube removal shows no evidence of recurrent pneumothorax. Okay for discharge from pulmonary standpoint. May need evaluation of her oxygensaturation prior to discharge. Documented By: Shanika Hyman MD 12/10/24 1439 Signed By: <Electronically signed by Shanika Hyman MD> 12/10/24 1440 [facility] Work Phone: 1(230) 433-800505-11-2025 Progress note Author Hugh Mendoza [facility] Note Date/Time December 10, 2024 1:09p [facility] [address] [place] [address] Hospitalist Progress Note Signed Patient: Cari Hale MR#: [id number] : 1965 Acct:[id number] Age/Sex: 59 / F Adm Date: 5 Loc: 4N Room: [address] [place] [address] Type: ADM IN Attending Dr: Mac Turner MD Copies to: ~ Date of Service: 12/10/2024 Subjective Subjective Narrative: Patient is doing well. She does have some pain at the site of the chest tube insertion. Heart is regular Lungs are clear Abdomen soft Neurological nonfocal Exam Physical Exam Vital Signs: Temp Pulse Resp BP Pulse Ox O2 Del Method O2 Flow Rate 98.7 F 108 H 20 139/55 L 96 Room Air 2 12/10/24 08:00 12/10/24 11:26 12/10/24 11:26 12/10/24 08:00 12/10/24 08:00 12/10/24 08:00 12/10/24 08:00 Meds Allergies and Active Meds Allergies atorvastatin (From Lipitor) Allergy (Unknown, Verified 12/08/24 07:34) Unknown Reaction Penicillins Allergy (Verified 12/08/24 07:34) Swelling of Lip/Tongue/Throat Active Meds: Active Medications Generic Name Dose Route Start Last Admin Trade Name Freq PRN Reason Stop Dose Admin Acetaminophen 500 mg 12/08/24 10:46 12/10/24 09:27 Acetaminophen 500 Mg Tablet PO 12/08/25 10:45 500 mg Q6H PRN Administration Pain Scale 1 - 3 or fever Albuterol/Ipratropium 3 ml 12/08/24 20:00 12/10/24 11:24 Ipratropium/Albuterol 0.5-3 Mg 3 Ml Ampul.Neb INHALATION 12/08/25 19:59 3 ml QID.RESP BECK Administration Aspirin 81 mg 12/09/24 09:00 12/10/24 09:26 Aspirin 81 Mg Tablet.Dr PO 12/09/25 08:59 81 mg DAILY BECK Administration Budesonide 9 mg 12/09/24 09:00 12/10/24 09:26 Budesonide 3 Mg Capdr...Er PO 12/09/25 08:59 9 mg QAM BECK Administration Bupropion HCl 150 mg 12/08/24 21:00 12/10/24 09:26 Bupropion 150 Mg Tab.Er.24h PO 12/08/25 20:59 150 mg BID BECK Administration Estradiol 2 mg 12/08/24 21:00 12/09/24 21:15 Estradiol 1 Mg Tablet PO 12/08/25 20:59 2 mg QPM BECK Administration Famotidine 20 mg 12/08/24 21:00 12/10/24 09:26 Famotidine 20 Mg Tablet PO 12/08/25 20:59 20 mg BID BEKC Administration Heparin Sodium (Porcine) 5,000 unit 12/08/24 21:00 12/10/24 09:27 Heparin 5,000 Unit/Ml Vial SUBCUT 12/08/25 20:59 5,000 unit Q12HR BECK Administration Hydroxyzine Pamoate 25 mg 12/08/24 10:35 12/10/24 02:50 Hydroxyzine Pamoate 25 Mg Capsule PO 25 mg QID PRN Administration anxiety Ketorolac Tromethamine 15 mg 12/08/24 10:43 12/10/24 02:50 Ketorolac Tromethamine 15 Mg/Ml Vial IV-PUSH 12/13/24 10:42 15 mg Q6H PRN Administration Pain Lamotrigine 100 mg 12/09/24 09:00 12/10/24 09:26 Lamotrigine 100 Mg Tablet PO 12/09/25 08:59 100 mg QAM BECK Administration Levothyroxine Sodium 50 mcg 12/09/24 06:30 12/10/24 06:54 Levothyroxine 50 Mcg Tablet PO 12/09/25 06:29 50 mcg DAILY@0630 BECK Administration Melatonin 3 mg 12/08/24 10:46 Melatonin 3 Mg Tablet PO 12/08/25 10:45 QHS PRN Insomnia Morphine Sulfate 2 mg 12/10/24 13:07 Morphine Sulfate 2 Mg/Ml Vial IV-PUSH Q3H PRN Pain Rosuvastatin 5 Mg 5 mg 12/09/24 09:00 12/10/24 09:41 Tablet PO 12/09/25 08:59 Not Given QAM BECK Ondansetron HCl 4 mg 12/10/24 03:01 12/10/24 03:11 Ondansetron 4 Mg/2 Ml Vial IV-PUSH 12/10/25 03:00 4 mg Q6H PRN Administration Nausea And Vomiting Oxycodone HCl 5 mg 12/09/24 07:59 12/10/24 09:26 Oxycodone Ir 5 Mg Tablet PO 5 mg Q4HR PRN Administration Pain Polyethylene Glycol 17 gm 12/08/24 16:41 Polyethylene Glycol 3350 17 Gm Powd.Pack PO 12/08/25 16:40 DAILY PRN Constipation Psyllium Hydrophilic Mucilloid 1 packet 12/08/24 21:00 12/10/24 09:27 Psyllium Husk 3.4 Gm Packet PO 12/08/25 20:59 1 packet BID BECK Administration Senna/Docusate Sodium 2 tab 12/08/24 21:00 12/10/24 09:26 Sennosides/Docusate 8.6-50mg 1 Tab Tablet PO 12/08/25 20:59 2 tab BID BECK Administration Sodium Chloride 0 ml 12/08/24 07:12 Sodium Chloride 0.9 % 10 Ml Syringe IV-PUSH 12/08/25 07:11 PRN PRN Flush A&P - Hospitalist Assessment/Plan (1) Lung mass: Plan Status post left upper lobe wedge resection and mediastinal dissection. Patient had some chest pain last night, was hypoxic, anxious, and the chest tubewas unclamped with improvement. Imaging shows no obvious complications. Further management per pulmonary medicine. Pain control. DVT prophylaxis. Constipation prophylaxis Chronic conditions: Aortic coarctation stent Anxiety, claustrophobia, panic attacks. Depression. Migraines Dyslipidemia Ulcerative colitis Diabetes Partial thyroidectomy DVT prophylaxis: Heparin Regular diet Full code Documented By: Hugh Mendoza MD 12/10/24 1308 Signed By: <Electronically signed by Hugh Mendoza MD> 12/10/24 1309 [facility] Work Phone: 1(977) 141-346705-11-2025 [place] [address] Pulmonology Progress Note Signed Patient: Cari Hale MR#: [id number] : 1965 Acct:[id number] Age/Sex: 59 / F Adm Date: 5 Loc: Room: [address] [place] [address] Type: ADM IN Attending Dr: Mac Turner MD Copies to: ~ Date of Service: 12/10/2024 Subjective Subjective Narrative: Had a chest tube clamped yesterday evening but called nursing staff around 2 AM complaining of chest pain and worsening shortness of breath. Chest x-ray was done and the chest tube was unclamped. Shehas mild serosanguineous chest tube output but no airleak on exam today. Exam Physical Exam Vital Signs: Temp Pulse Resp BP Pulse Ox O2 Del Method O2 Flow Rate 98.7 F 108 H 20 139/55 L 96 Room Air 2 12/10/24 08:00 12/10/24 11:26 12/10/24 11:26 12/10/24 08:00 12/10/24 08:00 12/10/24 08:00 12/10/24 08:00 Narrative: General: Awake and alert, appears in no acute respiratory distress Neck: Supple. Pulmonary: Diminished breath sounds to both lung lovelace without wheezing. Cardiovascular: Regular rate and rhythm. No murmurs Abdomen: Soft, nontender and nondistended. Extremities: No edema. Objective Intake and Output I&O - Last 24 Hours: Intake & Output 12/09/24 12/10/24 12/10/24 23:59 07:59 15:59 Intake Total 180 / 1280 200 / 1200 1000 / 1200 Output Total 340 / 809 150 / 150 Balance -160 / 471 50 / 1050 1000 / 1050 Weight 62.4 kg Imaging and Cardiology Chest x-ray: Status: image reviewed by me (Chest x-ray was reviewed and showed no evidence of pneumothorax.) Assessment/Plan Assessment/Plan (1) Lung mass: Plan: With concern for underlying malignancy. Underwent surgical intervention on Wednesday with left thorascopic upper lobe wedgeresection and mediastinal dissection with chest tube in place and tolerating relatively well. Had her chest tube and clamped around 2 AM but chest x-ray done prior to that showed no evidence ofpneumothorax and continues to have no signs of air leak today. I removed her chest tube today and she tolerated relatively well. Repeated chest x-ray after chest tube removal shows no evidence of recurrent pneumothorax. Okay for discharge from pulmonary standpoint. May need evaluation of her oxygensaturation prior to discharge. Documented By: Shanika Hyman MD 12/10/24 1439 Signed By: 12/10/24 1443 [facility]05-11-2025 [place] [address] Hospitalist Progress Note Signed Patient: Cari Hale MR#: [id number] : 1965 Acct:[id number] Age/Sex: 59 / F Adm Date: 5 Loc: Room: [address] [place] [address] Type: ADM IN Attending Dr: Mac Turner MD Copies to: ~ Date of Service: 12/10/2024 Subjective Subjective Narrative: Patient is doing well. She does have some pain at the site of the chest tube insertion. Heart is regular Lungs are clear Abdomen soft Neurological nonfocal Exam Physical Exam Vital Signs: Temp Pulse Resp BP Pulse Ox O2 Del Method O2 Flow Rate 98.7 F 108 H 20 139/55 L 96 Room Air 2 12/10/24 08:00 12/10/24 11:26 12/10/24 11:26 12/10/24 08:00 12/10/24 08:00 12/10/24 08:00 12/10/24 08:00 Meds Allergies and Active Meds Allergies atorvastatin (From Lipitor) Allergy (Unknown, Verified 12/08/24 07:34) Unknown Reaction Penicillins Allergy (Verified 12/08/24 07:34) Swelling of Lip/Tongue/Throat Active Meds: Active Medications Generic Name Dose Route Start Last Admin Trade Name Freq PRN Reason Stop Dose Admin Acetaminophen 500 mg 12/08/24 10:46 12/10/24 09:27 Acetaminophen 500 Mg Tablet PO 12/08/25 10:45 500 mg Q6H PRN Administration Pain Scale 1 - 3 or fever Albuterol/Ipratropium 3 ml 12/08/24 20:00 12/10/24 11:24 Ipratropium/Albuterol 0.5-3 Mg 3 Ml Ampul.Neb INHALATION 12/08/25 19:59 3 ml QID.RESP BECK Administration Aspirin 81 mg 12/09/24 09:00 12/10/24 09:26 Aspirin 81 Mg Tablet.Dr PO 12/09/25 08:59 81 mg DAILY BECK Administration Budesonide 9 mg 12/09/24 09:00 12/10/24 09:26 Budesonide 3 Mg Capdr...Er PO 12/09/25 08:59 9 mg QAM BECK Administration Bupropion HCl 150 mg 12/08/24 21:00 12/10/24 09:26 Bupropion 150 Mg Tab.Er.24h PO 12/08/25 20:59 150 mg BID BECK Administration Estradiol 2 mg 12/08/24 21:00 12/09/24 21:15 Estradiol 1 Mg Tablet PO 12/08/25 20:59 2 mg QPM BECK Administration Famotidine 20 mg 12/08/24 21:00 12/10/24 09:26 Famotidine 20 Mg Tablet PO 12/08/25 20:59 20 mg BID BECK Administration Heparin Sodium (Porcine) 5,000 unit 12/08/24 21:00 12/10/24 09:27 Heparin 5,000 Unit/Ml Vial SUBCUT 12/08/25 20:59 5,000 unit Q12HR BECK Administration Hydroxyzine Pamoate 25 mg 12/08/24 10:35 12/10/24 02:50 Hydroxyzine Pamoate 25 Mg Capsule PO 25 mg QID PRN Administration anxiety Ketorolac Tromethamine 15 mg 12/08/24 10:43 12/10/24 02:50 Ketorolac Tromethamine 15 Mg/Ml Vial IV-PUSH 12/13/24 10:42 15 mg Q6H PRN Administration Pain Lamotrigine 100 mg 12/09/24 09:00 12/10/24 09:26 Lamotrigine 100 Mg Tablet PO 12/09/25 08:59 100 mg QAM BECK Administration Levothyroxine Sodium 50 mcg 12/09/24 06:30 12/10/24 06:54 Levothyroxine 50 Mcg Tablet PO 12/09/25 06:29 50 mcg DAILY@0630 BECK Administration Melatonin 3 mg 12/08/24 10:46 Melatonin 3 Mg Tablet PO 12/08/25 10:45 QHS PRN Insomnia Morphine Sulfate 2 mg 12/10/24 13:07 Morphine Sulfate 2 Mg/Ml Vial IV-PUSH Q3H PRN Pain Rosuvastatin 5 Mg 5 mg 12/09/24 09:00 12/10/24 09:41 Tablet PO 12/09/25 08:59 Not Given QAM BECK Ondansetron HCl 4 mg 12/10/24 03:01 12/10/24 03:11 Ondansetron 4 Mg/2 Ml Vial IV-PUSH 12/10/25 03:00 4 mg Q6H PRN Administration Nausea And Vomiting Oxycodone HCl 5 mg 12/09/24 07:59 12/10/24 09:26 Oxycodone Ir 5 Mg Tablet PO 5 mg Q4HR PRN Administration Pain Polyethylene Glycol 17 gm 12/08/24 16:41 Polyethylene Glycol 3350 17 Gm Powd.Pack PO 12/08/25 16:40 DAILY PRN Constipation Psyllium Hydrophilic Mucilloid 1 packet 12/08/24 21:00 12/10/24 09:27 Psyllium Husk 3.4 Gm Packet PO 12/08/25 20:59 1 packet BID BECK Administration Senna/Docusate Sodium 2 tab 12/08/24 21:00 12/10/24 09:26 Sennosides/Docusate 8.6-50mg 1 Tab Tablet PO 12/08/25 20:59 2 tab BID BECK Administration Sodium Chloride 0 ml 12/08/24 07:12 Sodium Chloride 0.9 % 10 Ml Syringe IV-PUSH 12/08/25 07:11 PRN PRN Flush A&P - Hospitalist Assessment/Plan (1) Lung mass: Plan Status post left upper lobe wedge resection and mediastinal dissection. Patient had some chest pain last night, was hypoxic, anxious, and the chest tubewas unclamped with improvement. Imaging shows no obvious complications. Further management per pulmonary medicine. Pain control. DVT prophylaxis. Constipation prophylaxis Chronic conditions: Aortic coarctation stent Anxiety, claustrophobia, panic attacks. Depression. Migraines Dyslipidemia Ulcerative colitis Diabetes Partial thyroidectomy DVT prophylaxis: Heparin Regular diet Full code Documented By: Hugh Mendoza MD 12/10/24 1308 Signed By: 12/10/24 1309 [facility]05-10-2025 Progress note Author Hugh Mendoza [facility] Note Date/Time December 09, 2024 4:37p m [facility] [address] [place] [address] Hospitalist Progress Note Signed Patient: Cari Hale MR#: [id number] : 1965 Acct:[id number] Age/Sex: 59 / F Adm Date: 5 Loc: Room: [address] [place] [address] Type: ADM IN Attending Dr: Mac Turner MD Copies to: ~ Date of Service: 12/09/2024 Subjective Subjective Narrative: Attending note: I saw the patient personally on the day of encounter. I reviewed the relevant history, and performed the ortega elements of the physical examination. I reviewedthe relevant laboratory workup, radiological studies and the current treatment plan. I formulated the plan of care and confirmed it with the resident/student/[employer]. Patient seen resting in bed today. States that she has a persistent dry cough after VATS procedure performed on 12/08/2024. States she has not had a bowel movement in 2 days, normally goes once or twice a day. Notes 1 episode of nonbloody emesis earlier today. Denies fevers, chills, chest pain, abdominal pain, nausea, diarrhea, hematemesis, hematochezia, melena or any other acute symptoms at this time. Exam Physical Exam Vital Signs: Temp Pulse Resp BP Pulse Ox O2 Del Method O2 Flow Rate 98.2 F 115 H 20 137/83 100 Nasal Cannula 2 12/09/24 09:00 12/09/24 09:55 12/09/24 09:55 12/09/24 09:00 12/09/24 09:00 12/09/24 09:03 12/09/24 09:03 Narrative: CONSTITUTIONAL: No apparent distress. Alert, oriented. HEAD: Nasal cannula in place. Normocephalic, atraumatic. EYES: EOMI. Pupils equal and reactive. Conjunctiva normal. ENT: External auditory canals wnl. No rhinorrhea. No pharyngeal exudates or erythema. NECK: No meningismus. No adenopathy. LUNGS: No distress. Left-sided chest tube with bloody output. No airleak appreciated. Diminished lung sounds to auscultation throughout. Symmetric chestrise. No wheezes, rales or rhonchi. CARDIOVASCULAR: Regular rate and rhythm. No murmurs. Symmetric palpable radial and dorsalis pedis pulses. ABDOMEN: Soft, non-tender, non-distended. Normal bowel sounds. Extremities: No clubbing, cyanosis or edema. SKIN: Intact. No rash. No trauma. NEUROLOGIC: Cranial nerves grossly intact. No focal neurologic signs. PSYCHIATRIC: Normal affect. Meds Allergies and Active Meds Allergies atorvastatin (From Lipitor) Allergy (Unknown, Verified 12/08/24 07:34) Unknown Reaction Penicillins Allergy (Verified 12/08/24 07:34) Swelling of Lip/Tongue/Throat Active Meds: Active Medications Generic Name Dose Route Start Last Admin Trade Name Freq PRN Reason Stop Dose Admin Acetaminophen 500 mg 12/08/24 10:46 Acetaminophen 500 Mg Tablet PO 12/08/25 10:45 Q6H PRN Pain Scale 1 - 3 or fever Albuterol/Ipratropium 3 ml 12/08/24 20:00 12/09/24 09:54 Ipratropium/Albuterol 0.5-3 Mg 3 Ml Ampul.Neb INHALATION 12/08/25 19:59 3 ml QID.RESP BECK Administration Aspirin 81 mg 12/09/24 09:00 12/09/24 09:16 Aspirin 81 Mg Tablet.Dr PO 12/09/25 08:59 81 mg DAILY BECK Administration Budesonide 9 mg 12/09/24 09:00 12/09/24 09:14 Budesonide 3 Mg Capdr...Er PO 12/09/25 08:59 9 mg QAM BCEK Administration Bupropion HCl 150 mg 12/08/24 21:00 12/09/24 09:16 Bupropion 150 Mg Tab.Er.24h PO 12/08/25 20:59 150 mg BID BECK Administration Estradiol 2 mg 12/08/24 21:00 12/08/24 21:14 Estradiol 1 Mg Tablet PO 12/08/25 20:59 2 mg QPM BECK Administration Famotidine 20 mg 12/08/24 21:00 12/09/24 09:16 Famotidine 20 Mg Tablet PO 12/08/25 20:59 20 mg BID BECK Administration Heparin Sodium (Porcine) 5,000 unit 12/08/24 21:00 12/09/24 09:19 Heparin 5,000 Unit/Ml Vial SUBCUT 12/08/25 20:59 5,000 unit Q12HR BECK Administration Hydroxyzine Pamoate 25 mg 12/08/24 10:35 12/09/24 00:34 Hydroxyzine Pamoate 25 Mg Capsule PO 25 mg QID PRN Administration anxiety Lactated Ringer's 1,000 mls @ 50 mls/hr 12/08/24 16:30 12/08/24 16:56 Lactated Ringers IV 12/08/25 16:29 50 mls/hr .Q20H BECK Administration Ketorolac Tromethamine 15 mg 12/08/24 10:43 12/08/24 15:33 Ketorolac Tromethamine 15 Mg/Ml Vial IV-PUSH 12/13/24 10:42 15 mg Q6H PRN Administration Pain Lamotrigine 100 mg 12/09/24 09:00 12/09/24 09:16 Lamotrigine 100 Mg Tablet PO 12/09/25 08:59 100 mg QAM BECK Administration Levothyroxine Sodium 50 mcg 12/09/24 06:30 12/09/24 06:31 Levothyroxine 50 Mcg Tablet PO 12/09/25 06:29 50 mcg DAILY@0630 BECK Administration Melatonin 3 mg 12/08/24 10:46 Melatonin 3 Mg Tablet PO 12/08/25 10:45 QHS PRN Insomnia Rosuvastatin 5 Mg 5 mg 12/09/24 09:00 12/09/24 12:39 Tablet PO 12/09/25 08:59 Not Given QAM BECK Oxycodone HCl 5 mg 12/09/24 07:59 Oxycodone Ir 5 Mg Tablet PO Q4HR PRN Pain Polyethylene Glycol 17 gm 12/08/24 16:41 Polyethylene Glycol 3350 17 Gm Powd.Pack PO 12/08/25 16:40 DAILY PRN Constipation Psyllium Hydrophilic Mucilloid 1 packet 12/08/24 21:00 12/09/24 09:19 Psyllium Husk 3.4 Gm Packet PO 12/08/25 20:59 1 packet BID BECK Administration Senna/Docusate Sodium 2 tab 12/08/24 21:00 12/09/24 12:38 Sennosides/Docusate 8.6-50mg 1 Tab Tablet PO 12/08/25 20:59 2 tab BID BECK Administration Sodium Chloride 0 ml 12/08/24 07:12 Sodium Chloride 0.9 % 10 Ml Syringe IV-PUSH 12/08/25 07:11 PRN PRN Flush A&P - Hospitalist Assessment/Plan (1) Lung mass: Plan Status post left upper lobe wedge resection and mediastinal dissection. -Further management in this regard per CT surgery and pulmonary medicine. Plan to clamp chest tube and anticipate removal tomorrow. -MANAGER IMMUNOLOGY pump was ordered. -Constipation prophylaxis Chronic conditions: Aortic coarctation stent Anxiety, claustrophobia, panic attacks. Depression. Migraines Dyslipidemia Ulcerative colitis Diabetes Partial thyroidectomy DVT prophylaxis: Heparin Regular diet Full code Documented By: Hugh Mendoza MD 12/09/24 1335 Signed By: <Electronically signed by Hugh Mendoza MD> 12/09/24 1637 <Electronically signed by DO MOLLY Enriquez> 12/09/24 1349 [facility] Work Phone: 1(609) 619-371605-10-2025 [place] [address] Hospitalist Progress Note Signed Patient: Cari Hale MR#: [id number] : 1965 Acct:[id number] Age/Sex: 59 / F Adm Date: 5 Loc: 4N Room: [id number] Type: ADM IN Attending Dr: Mac Turner MD Copies to: ~ Date of Service: 12/09/2024 Subjective Subjective Narrative: Attending note: I saw the patient personally on the day of encounter. I reviewed the relevant history, and performed the ortega elements of the physical examination. I reviewedthe relevant laboratory workup, radiological studies and the current treatment plan. 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 Patient seen resting in bed today. States that she has a persistent dry cough after VATS procedure performed on 12/08/2024. States she has not had a bowel movement in 2 days, normally goes once or twice a day. Notes 1 episode of nonbloody emesis earlier today. Denies fevers, chills, chest pain, abdominal pain, nausea, diarrhea, hematemesis, hematochezia, melena or any other acute symptoms at this time. Exam Physical Exam Vital Signs: Temp Pulse Resp BP Pulse Ox O2 Del Method O2 Flow Rate 98.2 F 115 H 20 137/83 100 Nasal Cannula 2 12/09/24 09:00 12/09/24 09:55 12/09/24 09:55 12/09/24 09:00 12/09/24 09:00 12/09/24 09:03 12/09/24 09:03 Narrative: CONSTITUTIONAL: No apparent distress. Alert, oriented. HEAD: Nasal cannula in place. Normocephalic, atraumatic. EYES: EOMI. Pupils equal and reactive. Conjunctiva normal. ENT: External auditory canals wnl. No rhinorrhea. No pharyngeal exudates or erythema. NECK: No meningismus. No adenopathy. LUNGS: No distress. Left-sided chest tube with bloody output. No airleak appreciated. Diminished lung sounds to auscultation throughout. Symmetric chestrise. No wheezes, rales or rhonchi. CARDIOVASCULAR: Regular rate and rhythm. No murmurs. Symmetric palpable radial and dorsalis pedis pulses. ABDOMEN: Soft, non-tender, non-distended. Normal bowel sounds. Extremities: No clubbing, cyanosis or edema. SKIN: Intact. No rash. No trauma. NEUROLOGIC: Cranial nerves grossly intact. No focal neurologic signs. PSYCHIATRIC: Normal affect. Meds Allergies and Active Meds Allergies atorvastatin (From Lipitor) Allergy (Unknown, Verified 12/08/24 07:34) Unknown Reaction Penicillins Allergy (Verified 12/08/24 07:34) Swelling of Lip/Tongue/Throat Active Meds: Active Medications Generic Name Dose Route Start Last Admin Trade Name Freq PRN Reason Stop Dose Admin Acetaminophen 500 mg 12/08/24 10:46 Acetaminophen 500 Mg Tablet PO 12/08/25 10:45 Q6H PRN Pain Scale 1 - 3 or fever Albuterol/Ipratropium 3 ml 12/08/24 20:00 12/09/24 09:54 Ipratropium/Albuterol 0.5-3 Mg 3 Ml Ampul.Neb INHALATION 12/08/25 19:59 3 ml QID.RESP BECK Administration Aspirin 81 mg 12/09/24 09:00 12/09/24 09:16 Aspirin 81 Mg Tablet.Dr PO 12/09/25 08:59 81 mg DAILY BECK Administration Budesonide 9 mg 12/09/24 09:00 12/09/24 09:14 Budesonide 3 Mg Capdr...Er PO 12/09/25 08:59 9 mg QAM BECK Administration Bupropion HCl 150 mg 12/08/24 21:00 12/09/24 09:16 Bupropion 150 Mg Tab.Er.24h PO 12/08/25 20:59 150 mg BID BECK Administration Estradiol 2 mg 12/08/24 21:00 12/08/24 21:14 Estradiol 1 Mg Tablet PO 12/08/25 20:59 2 mg QPM BECK Administration Famotidine 20 mg 12/08/24 21:00 12/09/24 09:16 Famotidine 20 Mg Tablet PO 12/08/25 20:59 20 mg BID BECK Administration Heparin Sodium (Porcine) 5,000 unit 12/08/24 21:00 12/09/24 09:19 Heparin 5,000 Unit/Ml Vial SUBCUT 12/08/25 20:59 5,000 unit Q12HR BECK Administration Hydroxyzine Pamoate 25 mg 12/08/24 10:35 12/09/24 00:34 Hydroxyzine Pamoate 25 Mg Capsule PO 25 mg QID PRN Administration anxiety Lactated Ringer's 1,000 mls @ 50 mls/hr 12/08/24 16:30 12/08/24 16:56 Lactated Ringers IV 12/08/25 16:29 50 mls/hr .Q20H BECK Administration Ketorolac Tromethamine 15 mg 12/08/24 10:43 12/08/24 15:33 Ketorolac Tromethamine 15 Mg/Ml Vial IV-PUSH 12/13/24 10:42 15 mg Q6H PRN Administration Pain Lamotrigine 100 mg 12/09/24 09:00 12/09/24 09:16 Lamotrigine 100 Mg Tablet PO 12/09/25 08:59 100 mg QAM BECK Administration Levothyroxine Sodium 50 mcg 12/09/24 06:30 12/09/24 06:31 Levothyroxine 50 Mcg Tablet PO 12/09/25 06:29 50 mcg DAILY@0630 BECK Administration Melatonin 3 mg 12/08/24 10:46 Melatonin 3 Mg Tablet PO 12/08/25 10:45 QHS PRN Insomnia Rosuvastatin 5 Mg 5 mg 12/09/24 09:00 12/09/24 12:39 Tablet PO 12/09/25 08:59 Not Given QAM BECK Oxycodone HCl 5 mg 12/09/24 07:59 Oxycodone Ir 5 Mg Tablet PO Q4HR PRN Pain Polyethylene Glycol 17 gm 12/08/24 16:41 Polyethylene Glycol 3350 17 Gm Powd.Pack PO 12/08/25 16:40 DAILY PRN Constipation Psyllium Hydrophilic Mucilloid 1 packet 12/08/24 21:00 12/09/24 09:19 Psyllium Husk 3.4 Gm Packet PO 12/08/25 20:59 1 packet BID BECK Administration Senna/Docusate Sodium 2 tab 12/08/24 21:00 12/09/24 12:38 Sennosides/Docusate 8.6-50mg 1 Tab Tablet PO 12/08/25 20:59 2 tab BID BECK Administration Sodium Chloride 0 ml 12/08/24 07:12 Sodium Chloride 0.9 % 10 Ml Syringe IV-PUSH 12/08/25 07:11 PRN PRN Flush A&P - Hospitalist Assessment/Plan (1) Lung mass: Plan Status post left upper lobe wedge resection and mediastinal dissection. -Further management in this regard per CT surgery and pulmonary medicine. Plan to clamp chest tube and anticipate removal tomorrow. -MANAGER IMMUNOLOGY pump was ordered. -Constipation prophylaxis Chronic conditions: Aortic coarctation stent Anxiety, claustrophobia, panic attacks. Depression. Migraines Dyslipidemia Ulcerative colitis Diabetes Partial thyroidectomy DVT prophylaxis: Heparin Regular diet Full code Documented By: Hugh Mendoza MD 12/09/24 1335 Signed By: 12/09/24 1637 12/09/24 1349 [facility]05-10-2025 Progress note Author Shanika Hyman [facility] Note Date/Time December 09, 2024 1:03p m [facility] [address] [place] [address] Pulmonology Progress Note Signed Patient: Cari Hale MR#: [id number] : 1965 Acct:[id number] Age/Sex: 59 / F Adm Date: 5 Loc: 4N Room: [address] [place] [address] Type: ADM IN Attending Dr: Mac Turner MD Copies to: ~ Date of Service: 12/09/2024 Subjective Subjective Narrative: Still complaining of left-sided chest pain and now with some worsening cough postoperatively but no significant sputum production. Moderate bloody chest tube output but no obvious air leak noted. Exam Physical Exam Vital Signs: Temp Pulse Resp BP Pulse Ox O2 Del Method O2 Flow Rate 98.2 F 115 H 20 137/83 100 Nasal Cannula 2 12/09/24 09:00 12/09/24 09:55 12/09/24 09:55 12/09/24 09:00 12/09/24 09:00 12/09/24 09:03 12/09/24 09:03 Narrative: General: Awake and alert, appears in no acute respiratory distress Neck: Supple. Pulmonary: Diminished breath sounds to both lung lovelace without wheezing. Cardiovascular: Regular rate and rhythm. No murmurs Abdomen: Soft, nontender and nondistended. Extremities: No edema. Objective Intake and Output I&O - Last 24 Hours: Intake & Output 12/08/24 12/09/24 12/09/24 23:59 07:59 15:59 Intake Total 240 / 2040 100 / 100 Output Total 221 / 261 399 / 449 50 / 449 Balance 1778 -299 / -349 -50 / -349 Weight 58.3 kg Imaging and Cardiology Chest x-ray: Status: image reviewed by me (Chest x-ray was reviewed and appears unremarkable.) Assessment/Plan Assessment/Plan (1) Lung mass: Plan: With concern for underlying malignancy. Underwent surgical intervention on Wednesday with left thorascopic upper lobe wedgeresection and mediastinal dissection with chest tube in place and tolerating relatively well. Still with mild to moderate bloody chest tube output but I did not appreciate any air leak. Will continue chest tube for now, clamp her chest tube overnight, obtain a chestx-ray and likely remove her chest tube tomorrow if she continues to improve. Continue with bronchodilator therapy. Encourage incentive spirometry use. Discussed with the patient and her bedside nurse. Documented By: Shanika Hyman MD 12/09/24 1300 Signed By: <Electronically signed by Shanika Hyman MD> 12/09/24 1307 [facility] Work Phone: 1(361) 226-987605-10-2025 [place] [id number] Pulmon[place] Progress Note Signed Patient: Cari Hale MR#: [id number] : 1965 Acct:[id number] Age/Sex: 59 / F Adm Date: 5 Loc: 4N Room: 9X4246-5 Type: ADM IN Attending Dr: Mac Turner MD Copies to: ~ Date of Service: 12/09/2024 Subjective Subjective Narrative: Still complaining of left-sided chest pain and now with some worsening cough postoperatively but nosignificant sputum production. Moderate bloody chest tube output but no obvious air leak noted. Exam Physical Exam Vital Signs: Temp Pulse Resp BP Pulse Ox O2 Del Method O2 Flow Rate 98.2 F 115 H 20 137/83 100 Nasal Cannula 2 12/09/24 09:00 12/09/24 09:55 12/09/24 09:55 12/09/24 09:00 12/09/24 09:00 12/09/24 09:03 12/09/24 09:03 Narrative: General: Awake and alert, appears in no acute respiratory distress Neck: Supple. Pulmonary: Diminished breath sounds to both lung lovelace without wheezing. Cardiovascular: Regular rate and rhythm. No murmurs Abdomen: Soft, nontender and nondistended. Extremities: No edema. Objective Intake and Output I&O - Last 24 Hours: Intake & Output 12/08/24 12/09/24 12/09/24 23:59 07:59 15:59 Intake Total 240 / 2040 100 / 100 Output Total 221 / 261 399 / 449 50 / 449 Balance 1778 -299 / -349 -50 / -349 Weight 58.3 kg Imaging and Cardiology Chest x-ray: Status: image reviewed by me (Chest x-ray was reviewed and appears unremarkable.) Assessment/Plan Assessment/Plan (1) Lung mass: Plan: With concern for underlying malignancy. Underwent surgical intervention on Wednesday with left thorascopic upper lobe wedgeresection and mediastinal dissection with chest tube in place and tolerating relatively well. Still with mild to moderate bloody chest tube output but I did not appreciate any air leak. Will continue chest tube for now, clamp her chest tube overnight, obtain a chestx-ray and likely remove her chest tube tomorrow if she continues to improve. Continue with bronchodilator therapy. Encourage incentive spirometry use. Discussed with the patient and her bedside nurse. Documented By: Shanika Hyman MD 12/09/24 1300 Signed By: 12/09/24 1303 [facility]05-10-2025 Progress note Author Mac Turner [facility] Note Date/Time December 09, 2024 7:57a m [facility] [address] [place] [address] Cardiothoracic Progress Note Signed Patient: Cari Hale MR#: [id number] : 1965 Acct:[id number] Age/Sex: 59 / F Adm Date: 5 Loc: 4N Room: [address] [place] [address] Type: ADM IN Attending Dr: Mac Turner MD Copies to: ~ Date of Service: 12/09/2024 Exam Physical Exam Vital Signs: Temp Pulse Resp BP Pulse Ox O2 Del Method O2 Flow Rate 98.1 F 104 H 18 123/79 98 Nasal Cannula 2 12/09/24 04:30 12/09/24 04:30 12/09/24 04:30 12/09/24 04:30 12/09/24 04:30 12/09/24 04:30 12/09/24 04:30 Objective Vital Signs Vital Signs: Temp 98.1 F 12/09/24 04:30 Pulse 104 H 12/09/24 04:30 Resp 18 12/09/24 04:30 BP 123/79 12/09/24 04:30 Pulse Ox 98 12/09/24 04:30 O2 Del Method Nasal Cannula 12/09/24 04:30 O2 Flow Rate 2 12/09/24 04:30 Lab Results Labs: Laboratory Results - last 24 hr 12/08/24 12/08/24 12/08/24 07:36 07:49 07:50 POC Glucose 178 POC Glucose Comment Glu2: cleaned meter Urine HCG, Qual Negative Blood Type Recheck A Positive 12/08/24 12/08/24 12/08/24 11:13 11:13 12:58 POC Glucose 458 H* 405 H* POC Glucose Comment Cleaned meter Glu2: cleaned meter Urine HCG, Qual Blood Type Recheck 12/09/24 03:25 POC Glucose 195 POC Glucose Comment Urine HCG, Qual Blood Type Recheck A&P - Cardiothoracic Surgery (1) Lung mass: Plan POD 1 from lung wedge. PO meds. Once no air leak, then remove chest tube and discharge Documented By: Mac Turner MD 12/09/24 075 Signed By: <Electronically signed by Mac Turner MD> 12/09/24 075 [facility] Work Phone: [phone]) [phone] [place] [address] Cardiothoracic Progress Note Signed Patient: Cari Hale MR#: [id number] : 1965 Acct:[id number] Age/Sex: 59 / F Adm Date: 5 Loc: 4N Room: 9U0557-6 Type: ADM IN Attending Dr: Mca Turner MD Copies to: ~ Date of Service: 12/09/2024 Exam Physical Exam Vital Signs: Temp Pulse Resp BP Pulse Ox O2 Del Method O2 Flow Rate 98.1 F 104 H 18 123/79 98 Nasal Cannula 2 12/09/24 04:30 12/09/24 04:30 12/09/24 04:30 12/09/24 04:30 12/09/24 04:30 12/09/24 04:30 12/09/24 04:30 Objective Vital Signs Vital Signs: Temp 98.1 F 12/09/24 04:30 Pulse 104 H 12/09/24 04:30 Resp 18 12/09/24 04:30 BP 123/79 12/09/24 04:30 Pulse Ox 98 12/09/24 04:30 O2 Del Method Nasal Cannula 12/09/24 04:30 O2 Flow Rate 2 12/09/24 04:30 Lab Results Labs: Laboratory Results - last 24 hr 12/08/24 12/08/24 12/08/24 07:36 07:49 07:50 POC Glucose 178 POC Glucose Comment Glu2: cleaned meter Urine HCG, Qual Negative Blood Type Recheck A Positive 12/08/24 12/08/24 12/08/24 11:13 11:13 12:58 POC Glucose 458 H* 405 H* POC Glucose Comment Cleaned meter Glu2: cleaned meter Urine HCG, Qual Blood Type Recheck 12/09/24 03:25 POC Glucose 195 POC Glucose Comment Urine HCG, Qual Blood Type Recheck A&P - Cardiothoracic Surgery (1) Lung mass: Plan POD 1 from lung wedge. PO meds. Once no air leak, then remove chest tube and discharge Documented By: Mac Turner MD 12/09/24 0756 Signed By: 12/09/24 0757 [facility]05-09-2025 Consult note Author Hugh Mendoza [facility] Note Date/Time December 08, 2024 4:41pm [facility] [address] [place] [address] Hospitalist Consult Note Signed Patient: Cari Hale MR#: [id number] : 1965 Acct:[id number] Age/Sex: 59 / F Adm Date: 5 Loc: 4N Room: 4F7156-2 Type: ADM IN Attending Dr: Mac Turner MD Copies to: MD Renate Alonso DO Jason Robke, MD~ HPI DATE OF CONSULTATION: 12/08/24 REQUESTING PROVIDER: Mac Turner Consult Narrative HPI: Patient is a 59-year-old female, who today underwent left upper lobe pulmonary wedge resection, and mediastinal dissection via thoracoscopic surgery. The procedure was uncomplicated. There was no significant blood loss. Medicine is asked to assist the patient with medical comanagement. At the time of examination the patient is resting in bed. She complains of painat the site of the chest tube. She has no cough or shortness of breath. A MANAGER IMMUNOLOGY pump was ordered but not yet implemented per Past medical history Aortic coarctation stent Anxiety, claustrophobia, panic attacks. Depression. Migraines Dyslipidemia Ulcerative colitis Diabetes Partial thyroidectomy Physical exam Patient seen on the floor Patient appears comfortable, in no distress. Skin is normally colored, no icterus, cyanosis or edema noted. Capillary refill is normal. Joints are without any effusion. Abdomen is soft, benign, no rebound or rigidity. No organomegaly. Bowel sounds present. Heart regular, no gallop, rub or JVD. Peripheral pulses present bilaterally. Lungs are clear to auscultation, no rales, ronchi or wheezes. A chest tube inserted in the lateral left chest wall. He has minimal amount of bloody drainage. HENT normal Neurological: Patient is awake. Cognition is normal. Cranial nerves are intact. Power is symmetric all extremities, with no focal motor deficit identified on a cursory exam. Psych: affect is normal. EKG labs imaging reviewed Assessment and plan 1. Status post left upper lobe wedge resection and mediastinal dissection. Further management in this regard per CT surgery and pulmonary medicine. The chest tube is in place. MANAGER IMMUNOLOGY pump was ordered. DVT prophylaxis. Constipation prophylaxis Other chronic medical comorbidities are stable. Home medications were reviewed,updated and ordered. There is no other acute medical illness. Will follow the patient daily and as needed. Aortic coarctation stent Anxiety, claustrophobia, panic attacks. Depression. Migraines Dyslipidemia Ulcerative colitis Diabetes Partial thyroidectomy [facility] Medical History (Updated 12/08/24 @ 16:24 by Shanika Hyman MD) Smoker Claustrophobia History of panic attacks Depression Anxiety Adenocarcinoma Lung mass Tremor Migraine Cataracts, bilateral Hypercholesteremia Ulcerative colitis Diabetes Surgical History History of lung biopsy Status post aortic coarctation stent placement I have a stent in my Aorta S/P right and left heart catheterization angioplasty History of carpal tunnel surgery bilateral hands Previous back surgery x2 H/O partial thyroidectomy Family History Mother Diabetes Grandparent Diabetes Sister Diabetes Brother Legacy FamHx Relation: Brother(s) Father Mother No problems noted. Social History Smoking Status: Current every day smoker Tobacco Type: cigarettes Substance Use Type: None Meds Medications and Allergies Allergies atorvastatin (From Lipitor) Allergy (Unknown, Verified 12/08/24 07:34) Unknown Reaction Penicillins Allergy (Verified 12/08/24 07:34) Swelling of Lip/Tongue/Throat Home Medications ergocalciferol (vitamin D2) 1,250 mcg (50,000 unit) capsule 50 mcg PO QWEEK 10/13/22 [History Confirmed 12/05/24] estradiol 2 mg tablet 2 mg PO QPM 10/13/22 [History Confirmed 12/08/24] insulin aspart U-100 100 unit/mL subcutaneous solution (Novolog U-100 Insulin aspart) 19 unit subcut DAILY 10/13/22 [History Confirmed 12/05/24] rosuvastatin 5 mg tablet 5 mg PO QAM 10/13/22 [History Confirmed 12/05/24] aspirin 81 mg tablet,delayed release 81 mg PO DAILY 12/06/23 [History Confirmed 12/08/24] levothyroxine 100 mcg capsule 50 mcg PO DAILY 12/06/23 [History Confirmed 12/05/24] budesonide 3 mg capsule,delayed,extended release 9 mg PO QAM 12/05/24 [History Confirmed 12/05/24] bupropion HCl 150 mg 24 hr tablet, extended release 150 mg PO BID 12/05/24 [History Confirmed 12/05/24] clopidogrel 75 mg tablet 75 mg PO DAILY 12/05/24 [History Confirmed 12/08/24] hydroxyzine HCl 25 mg tablet 25 mg PO QID PRN anxiety 12/05/24 [History Confirmed 12/08/24] lamotrigine 100 mg tablet 100 mg PO QAM 12/05/24 [History Confirmed 12/05/24] Active Medications: Active Medications Generic Name Dose Route Start Last Admin Trade Name Freq PRN Reason Stop Dose Admin Acetaminophen 500 mg 12/08/24 10:46 Acetaminophen 500 Mg Tablet PO 12/08/25 10:45 Q6H PRN Pain Scale 1 - 3 or fever Aspirin 81 mg 12/09/24 09:00 Aspirin 81 Mg Tablet.Dr PO 12/09/25 08:59 DAILY BECK Budesonide 9 mg 12/09/24 09:00 Budesonide 3 Mg Capdr...Er PO 12/09/25 08:59 QAM BECK Bupropion HCl 150 mg 12/08/24 21:00 Bupropion 150 Mg Tab.Er.24h PO 12/08/25 20:59 BID BECK Diphenhydramine HCl 25 mg 12/08/24 10:43 Diphenhydramine 50 Mg/Ml Vial IV-PUSH 12/08/25 10:42 Q6H PRN Itching or Hives Estradiol 2 mg 12/08/24 21:00 Estradiol 1 Mg Tablet PO 12/08/25 20:59 QPM BECK Famotidine 20 mg 12/08/24 21:00 Famotidine 20 Mg Tablet PO 12/08/25 20:59 BID [facility] Heparin Sodium (Porcine) 5,000 unit 12/08/24 21:00 Heparin 5,000 Unit/Ml Vial SUBCUT 12/08/25 20:59 Q12HR BECK Hydroxyzine Pamoate 25 mg 12/08/24 10:35 Hydroxyzine Pamoate 25 Mg Capsule PO QID PRN anxiety Lactated Ringer's 1,000 mls @ 20 mls/hr 12/08/24 08:00 12/08/24 14:01 Lactated Ringers IV 12/09/24 07:59 20 mls/hr .Q24H ONE Infusion Hydromorphone HCl 20 mg/ 50 mls @ 0 mls/hr 12/08/24 10:43 Sodium Chloride IV 12/08/25 10:42 .Q0M PRN Pain Protocol 0 MG/HR Dextrose/Sodium Chloride 1,000 mls @ 50 mls/hr 12/08/24 11:00 5 % Dextrose-0.9 % Nacl IV 12/08/25 10:59 .Q20H [facility] Ketorolac Tromethamine 15 mg 12/08/24 10:43 Ketorolac Tromethamine 15 Mg/Ml Vial IV-PUSH 12/13/24 10:42 Q6H PRN Pain Lamotrigine 100 mg 12/09/24 09:00 Lamotrigine 100 Mg Tablet PO 12/09/25 08:59 QAM [facility] Levothyroxine Sodium 50 mcg 12/09/24 06:30 Levothyroxine 50 Mcg Tablet PO 12/09/25 06:29 DAILY@0630 [facility] Magnesium Hydroxide 30 ml 12/08/24 10:43 Magnesium Hydroxide Susp 30 Ml Udc PO 12/08/25 10:42 DAILY PRN Constipation Melatonin 3 mg 12/08/24 10:46 Melatonin 3 Mg Tablet PO 12/08/25 10:45 QHS PRN Insomnia Naloxone HCl 0.4 mg 12/08/24 10:43 Naloxone Hcl 0.4 Mg/Ml Vial IV-PUSH 12/08/25 10:42 Q2M PRN Oversedation Non-Formulary Medication 19 unit 12/09/24 09:00 Insulin Aspart U-100 [Novolog U-100 Insulin Aspart] SUBCUT 12/09/25 08:59 DAILY [facility] Rosuvastatin 5 Mg 5 mg 12/09/24 09:00 Tablet PO 12/09/25 08:59 QAM [facility] Ondansetron HCl 4 mg 12/08/24 10:43 Ondansetron 4 Mg/2 Ml Vial IV-PUSH 12/08/25 10:42 Q6H PRN Nausea And Vomiting Sodium Chloride 0 ml 12/08/24 07:12 Sodium Chloride 0.9 % 10 Ml Syringe IV-PUSH 12/08/25 07:11 PRN PRN Flush Sodium Chloride 9 ml 12/08/24 10:43 Sodium Chloride 0.9 % 10 Ml Vial.Pf INJECTION 12/08/25 10:42 PRN PRN Dilute Naloxone Exam Physical Exam Vital Signs: Temp Pulse Resp BP Pulse Ox O2 Del Method O2 Flow Rate 98.1 F 110 H 20 121/71 99 Nasal Cannula 4 12/08/24 10:30 12/08/24 14:00 12/08/24 14:00 12/08/24 14:00 12/08/24 14:00 12/08/24 10:30 12/08/24 10:30 Results - Hospitalist Consult Lab Results Labs: Laboratory Results - last 72 hr 12/08/24 12:58: POC Glucose 405 H*, POC Glucose Comment Glu2: cleaned meter 12/08/24 11:13: POC Glucose Comment Cleaned meter 12/08/24 11:13: POC Glucose 458 H*, POC Glucose Comment 12/08/24 07:50: Blood Type Recheck A Positive 12/08/24 07:49: POC Glucose 178, POC Glucose Comment Glu2: cleaned meter 12/08/24 07:36: Urine HCG, Qual Negative 12/05/24 17:27: Blood Type A Positive, Antibody Screen Negative Assessment & Plan Assessment/Plan (1) Lung mass: Plan . Documented By: Hugh Mendoza MD 12/08/24 1437 Signed By: <Electronically signed by Hugh Mendoza MD> 12/08/24 1643 [facility] Work Phone: 1(175) 583-265905-09-2025 Consult note Author Shanika Hyman [facility] Note Date/Time December 08, 2024 4:26pm [facility] [address] [place] [address] Pulmonology Consult Note Signed Patient: Cari Hale MR#: [id number] : 1965 Acct:[id number] Age/Sex: 59 / F Adm Date: 5 Loc: 4N Room: [address] [place] [address] Type: ADM IN Attending Dr: Mac Turner MD Copies to: MD Renate Fregoso DO Jason Robke, MD~ HPI Date/Time of Consultation: Date of Service: 12/08/2024 Time of Service: 16:22 Consulting Provider: Shanika Hyman Requesting Provider: Mac Turner Reason for Consult: Lung mass and postoperative management History of Present Illness History of present illness: Ms. Hale is a 59 year old female with past medical history of anxiety, hyperlipidemia, ulcerative colitis, diabetes mellitus and peripheral vascular disease, presented to the hospital for elective surgery for left upper lobe pulmonary wedge resection and mediastinal dissection. She underwent surgery without complication and was transferred to regular medical floor. A pulmonary consultation was requested for the above and chest tube management. The patient reports that she has significant pain and is asking for her MANAGER IMMUNOLOGY pump. She denies shortness of breath, cough or sputum production. She has been a lifelong smoker of about a pack per day. Review of Systems Review of Systems All other systems reviewed & are negative unless noted below or in HPI [facility] Medical History (Updated 12/08/24 @ 16:24 by Shanika Hyman MD) Smoker Claustrophobia History of panic attacks Depression Anxiety Adenocarcinoma Lung mass Tremor Migraine Cataracts, bilateral Hypercholesteremia Ulcerative colitis Diabetes Surgical History History of lung biopsy Status post aortic coarctation stent placement I have a stent in my Aorta S/P right and left heart catheterization angioplasty History of carpal tunnel surgery bilateral hands Previous back surgery x2 H/O partial thyroidectomy Family History Mother Diabetes Grandparent Diabetes Sister Diabetes Brother Legacy FamHx Relation: Brother(s) Father Mother No problems noted. Social History Smoking Status: Current every day smoker Tobacco Type: cigarettes Substance Use Type: None Meds Medications and Allergies Allergies atorvastatin (From Lipitor) Allergy (Unknown, Verified 12/08/24 07:34) Unknown Reaction Penicillins Allergy (Verified 12/08/24 07:34) Swelling of Lip/Tongue/Throat Home Medications ergocalciferol (vitamin D2) 1,250 mcg (50,000 unit) capsule 50 mcg PO QWEEK 10/13/22 [History Confirmed 12/05/24] estradiol 2 mg tablet 2 mg PO QPM 10/13/22 [History Confirmed 12/08/24] insulin aspart U-100 100 unit/mL subcutaneous solution (Novolog U-100 Insulin aspart) 19 unit subcut DAILY 10/13/22 [History Confirmed 12/05/24] rosuvastatin 5 mg tablet 5 mg PO QAM 10/13/22 [History Confirmed 12/05/24] aspirin 81 mg tablet,delayed release 81 mg PO DAILY 12/06/23 [History Confirmed 12/08/24] levothyroxine 100 mcg capsule 50 mcg PO DAILY 12/06/23 [History Confirmed 12/05/24] budesonide 3 mg capsule,delayed,extended release 9 mg PO QAM 12/05/24 [History Confirmed 12/05/24] bupropion HCl 150 mg 24 hr tablet, extended release 150 mg PO BID 12/05/24 [History Confirmed 12/05/24] clopidogrel 75 mg tablet 75 mg PO DAILY 12/05/24 [History Confirmed 12/08/24] hydroxyzine HCl 25 mg tablet 25 mg PO QID PRN anxiety 12/05/24 [History Confirmed 12/08/24] lamotrigine 100 mg tablet 100 mg PO QAM 12/05/24 [History Confirmed 12/05/24] Exam Physical Exam Vital Signs: Temp Pulse Resp BP Pulse Ox O2 Del Method O2 Flow Rate 98.1 F 110 H 20 121/71 99 Nasal Cannula 4 12/08/24 10:30 12/08/24 14:00 12/08/24 14:00 12/08/24 14:00 12/08/24 14:00 12/08/24 10:30 12/08/24 10:30 Narrative: General: Awake and alert, appears in no acute respiratory distress HEENT: Head normocephalic atraumatic. Neck: Supple. Pulmonary: Diminished breath sounds to both lung lovelace without wheezing. Cardiovascular: Regular rate and rhythm. No murmurs Abdomen: Soft, nontender and nondistended. Extremities: No edema. 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 Psych: Appears appropriate without signs of anxiety or depression. Results - Pulmonology Intake and Output I&O - Last 24 Hours: Intake & Output 12/08/24 12/08/24 12/08/24 07:59 15:59 23:59 Intake Total 1800 / 1800 Output Total 40 / 40 Balance 1760 / 1760 Weight 61 kg Imaging and Cardiology Chest x-ray: Status: image reviewed by me (Her postoperative chest x-ray was reviewed which is tube in place and no significant pneumothorax or infiltrates.) Assessment/Plan (1) Lung mass: Plan: With concern for underlying malignancy. Unfortunately her prior workup was done in outside facility and I do not have access to her records but per patient she had a CT-guided biopsy with atypical cells but no specific diagnosis. Underwent surgical intervention today with left thorascopic upper lobe wedge resection and mediastinal dissection with chest tube in place and tolerating relatively well. I did not appreciate any air leak from her chest tube. MANAGER IMMUNOLOGY pump was ordered and awaiting initiation for pain control. Encourage incentive spirometry use. I will add bronchodilator therapy given the significant prior smoking history and diminished breath sounds on exam suggesting possible underlying COPD. Discussed with the patient and family bedside. Documented By: Shanika Hyman MD 12/08/24 1622 Signed By: <Electronically signed by Shanika Hyman MD> 12/08/24 6865 [facility] Work Phone: 1(717) 350-471905-09-2025 [place] [address] Hospitalist Consult Note Signed Patient: Cari Hale MR#: [id number] : 1965 Acct:[id number] Age/Sex: 59 / F Adm Date: 5 Loc: Room: [address] [place] [address] Type: ADM IN Attending Dr: Mac Turner MD Copies to: MD Renate Alonso DO Jason Robke, MD~ HPI DATE OF CONSULTATION: 12/08/24 REQUESTING PROVIDER: Mac Turner Consult Narrative HPI: Patient is a 59-year-old female, who today underwent left upper lobe pulmonary wedge resection, andmediastinal dissection via thoracoscopic surgery. The procedure was uncomplicated. There was no significant blood loss. Medicine is asked to assist the patient with medical comanagement. At the time of examination the patient is resting in bed. She complains of painat the site of the chest tube. She has no cough or shortness of breath. A MANAGER IMMUNOLOGY pump was ordered but not yet implemented per Past medical history Aortic coarctation stent Anxiety, claustrophobia, panic attacks. Depression. Migraines Dyslipidemia Ulcerative colitis Diabetes Partial thyroidectomy Physical exam Patient seen on the floor Patient appears comfortable, in no distress. Skin is normally colored, no icterus, cyanosis or edema noted. Capillary refill is normal. Joints are without any effusion. Abdomen is soft, benign, no rebound or rigidity. No organomegaly. Bowel sounds present. Heart regular, no gallop, rub or JVD. Peripheral pulses present bilaterally. Lungs are clear to auscultation, no rales, ronchi or wheezes. A chest tube inserted in the lateral left chest wall. He has minimal amount of bloody drainage. HENT normal Neurological: Patient is awake. Cognition is normal. Cranial nerves are intact. Power is symmetric all extremities, with no focal motor deficit identified on a cursory exam. Psych: affect is normal. EKG labs imaging reviewed Assessment and plan 1. Status post left upper lobe wedge resection and mediastinal dissection. Further management in this regard per CT surgery and pulmonary medicine. The chest tube is in place. MANAGER IMMUNOLOGY pump was ordered. DVT prophylaxis. Constipation prophylaxis Other chronic medical comorbidities are stable. Home medications were reviewed,updated and ordered.There is no other acute medical illness. Will follow the patient daily and as needed. Aortic coarctation stent Anxiety, claustrophobia, panic attacks. Depression. Migraines Dyslipidemia Ulcerative colitis Diabetes Partial thyroidectomy [facility] Medical History (Updated 12/08/24 @ 16:24 by Shanika Hyman MD) Smoker Claustrophobia History of panic attacks Depression Anxiety Adenocarcinoma Lung mass Tremor Migraine Cataracts, bilateral Hypercholesteremia Ulcerative colitis Diabetes Surgical History History of lung biopsy Status post aortic coarctation stent placement I have a stent in my Aorta S/P right and left heart catheterization angioplasty History of carpal tunnel surgery bilateral hands Previous back surgery x2 H/O partial thyroidectomy Family History Mother Diabetes Grandparent Diabetes Sister Diabetes Brother Legacy FamHx Relation: Brother(s) Father Mother No problems noted. Social History Smoking Status: Current every day smoker Tobacco Type: cigarettes Substance Use Type: None Meds Medications and Allergies Allergies atorvastatin (From Lipitor) Allergy (Unknown, Verified 12/08/24 07:34) Unknown Reaction Penicillins Allergy (Verified 12/08/24 07:34) Swelling of Lip/Tongue/Throat Home Medications ergocalciferol (vitamin D2) 1,250 mcg (50,000 unit) capsule 50 mcg PO QWEEK 10/13/22 [History Confirmed 12/05/24] estradiol 2 mg tablet 2 mg PO QPM 10/13/22 [History Confirmed 12/08/24] insulin aspart U-100 100 unit/mL subcutaneous solution (Novolog U-100 Insulin aspart) 19 unit subcut DAILY 10/13/22 [History Confirmed 12/05/24] rosuvastatin 5 mg tablet 5 mg PO QAM 10/13/22 [History Confirmed 12/05/24] aspirin 81 mg tablet,delayed release 81 mg PO DAILY 12/06/23 [History Confirmed 12/08/24] levothyroxine 100 mcg capsule 50 mcg PO DAILY 12/06/23 [History Confirmed 12/05/24] budesonide 3 mg capsule,delayed,extended release 9 mg PO QAM 12/05/24 [History Confirmed 12/05/24] bupropion HCl 150 mg 24 hr tablet, extended release 150 mg PO BID 12/05/24 [History Confirmed 12/05/24] clopidogrel 75 mg tablet 75 mg PO DAILY 12/05/24 [History Confirmed 12/08/24] hydroxyzine HCl 25 mg tablet 25 mg PO QID PRN anxiety 12/05/24 [History Confirmed 12/08/24] lamotrigine 100 mg tablet 100 mg PO QAM 12/05/24 [History Confirmed 12/05/24] Active Medications: Active Medications Generic Name Dose Route Start Last Admin Trade Name Freq PRN Reason Stop Dose Admin Acetaminophen 500 mg 12/08/24 10:46 Acetaminophen 500 Mg Tablet PO 12/08/25 10:45 Q6H PRN Pain Scale 1 - 3 or fever Aspirin 81 mg 12/09/24 09:00 Aspirin 81 Mg Tablet.Dr PO 12/09/25 08:59 DAILY [facility] Budesonide 9 mg 12/09/24 09:00 Budesonide 3 Mg Capdr...Er PO 12/09/25 08:59 QAM [facility] Bupropion HCl 150 mg 12/08/24 21:00 Bupropion 150 Mg Tab.Er.24h PO 12/08/25 20:59 BID [facility] Diphenhydramine HCl 25 mg 12/08/24 10:43 Diphenhydramine 50 Mg/Ml Vial IV-PUSH 12/08/25 10:42 Q6H PRN Itching or Hives Estradiol 2 mg 12/08/24 21:00 Estradiol 1 Mg Tablet PO 12/08/25 20:59 QPM BECK Famotidine 20 mg 12/08/24 21:00 Famotidine 20 Mg Tablet PO 12/08/25 20:59 BID [facility] Heparin Sodium (Porcine) 5,000 unit 12/08/24 21:00 Heparin 5,000 Unit/Ml Vial SUBCUT 12/08/25 20:59 Q12HR BECK Hydroxyzine Pamoate 25 mg 12/08/24 10:35 Hydroxyzine Pamoate 25 Mg Capsule PO QID PRN anxiety Lactated Ringer's 1,000 mls @ 20 mls/hr 12/08/24 08:00 12/08/24 14:01 Lactated Ringers IV 12/09/24 07:59 20 mls/hr .Q24H ONE Infusion Hydromorphone HCl 20 mg/ 50 mls @ 0 mls/hr 12/08/24 10:43 Sodium Chloride IV 12/08/25 10:42 .Q0M PRN Pain Protocol 0 MG/HR Dextrose/Sodium Chloride 1,000 mls @ 50 mls/hr 12/08/24 11:00 5 % Dextrose-0.9 % Nacl IV 12/08/25 10:59 .Q20H BECK Ketorolac Tromethamine 15 mg 12/08/24 10:43 Ketorolac Tromethamine 15 Mg/Ml Vial IV-PUSH 12/13/24 10:42 Q6H PRN Pain Lamotrigine 100 mg 12/09/24 09:00 Lamotrigine 100 Mg Tablet PO 12/09/25 08:59 QAM [facility] Levothyroxine Sodium 50 mcg 12/09/24 06:30 Levothyroxine 50 Mcg Tablet PO 12/09/25 06:29 DAILY@0630 [facility] Magnesium Hydroxide 30 ml 12/08/24 10:43 Magnesium Hydroxide Susp 30 Ml Udc PO 12/08/25 10:42 DAILY PRN Constipation Melatonin 3 mg 12/08/24 10:46 Melatonin 3 Mg Tablet PO 12/08/25 10:45 QHS PRN Insomnia Naloxone HCl 0.4 mg 12/08/24 10:43 Naloxone Hcl 0.4 Mg/Ml Vial IV-PUSH 12/08/25 10:42 Q2M PRN Oversedation Non-Formulary Medication 19 unit 12/09/24 09:00 Insulin Aspart U-100 [Novolog U-100 Insulin Aspart] SUBCUT 12/09/25 08:59 DAILY [facility] Rosuvastatin 5 Mg 5 mg 12/09/24 09:00 Tablet PO 12/09/25 08:59 QAM [facility] Ondansetron HCl 4 mg 12/08/24 10:43 Ondansetron 4 Mg/2 Ml Vial IV-PUSH 12/08/25 10:42 Q6H PRN Nausea And Vomiting Sodium Chloride 0 ml 12/08/24 07:12 Sodium Chloride 0.9 % 10 Ml Syringe IV-PUSH 12/08/25 07:11 PRN PRN Flush Sodium Chloride 9 ml 12/08/24 10:43 Sodium Chloride 0.9 % 10 Ml Vial.Pf INJECTION 12/08/25 10:42 PRN PRN Dilute Naloxone Exam Physical Exam Vital Signs: Temp Pulse Resp BP Pulse Ox O2 Del Method O2 Flow Rate 98.1 F 110 H 20 121/71 99 Nasal Cannula 4 12/08/24 10:30 12/08/24 14:00 12/08/24 14:00 12/08/24 14:00 12/08/24 14:00 12/08/24 10:30 12/08/24 10:30 Results - Hospitalist Consult Lab Results Labs: Laboratory Results - last 72 hr 12/08/24 12:58: POC Glucose 405 H*, POC Glucose Comment Glu2: cleaned meter 12/08/24 11:13: POC Glucose Comment Cleaned meter 12/08/24 11:13: POC Glucose 458 H*, POC Glucose Comment 12/08/24 07:50: Blood Type Recheck A Positive 12/08/24 07:49: POC Glucose 178, POC Glucose Comment Glu2: cleaned meter 12/08/24 07:36: Urine HCG, Qual Negative 12/05/24 17:27: Blood Type A Positive, Antibody Screen Negative Assessment & Plan Assessment/Plan (1) Lung mass: Plan . Documented By: Huhg Mendoza MD 12/08/24 1437 Signed By: 12/08/24 1641 [facility]05-09-2025 [place] [address] Pulmonology Consult Note Signed Patient: Cari Hale MR#: [id number] : 1965 Acct:[id number] Age/Sex: 59 / F Adm Date: 5 Loc: 4 Room: [address] [place] [address] Type: ADM IN Attending Dr: Mac Turner MD Copies to: MD Renate Fregoso DO Jason Robke, MD~ HPI Date/Time of Consultation: Date of Service: 12/08/2024 Time of Service: 16:22 Consulting Provider: Shanika Hyman Requesting Provider: Mac Turner Reason for Consult: Lung mass and postoperative management History of Present Illness History of present illness: Ms. Hale is a 59 year old female with past medical history of anxiety, hyperlipidemia, ulcerative colitis, diabetes mellitus and peripheral vascular disease, presented to the hospital for elective surgery for left upper lobe pulmonary wedge resection and mediastinal dissection. She underwent surgery without complication and was transferred to regular medical floor. A pulmonary consultation was requested for the above and chest tube management. The patient reports that she has significant pain and is asking for her MANAGER IMMUNOLOGY pump. She denies shortness of breath, cough or sputum production. She has been a lifelong smoker of about a pack per day. Review of Systems Review of Systems All other systems reviewed & are negative unless noted below or in HPI [facility] Medical History (Updated 12/08/24 @ 16:24 by Shanika Hyman MD) Smoker Claustrophobia History of panic attacks Depression Anxiety Adenocarcinoma Lung mass Tremor Migraine Cataracts, bilateral Hypercholesteremia Ulcerative colitis Diabetes Surgical History History of lung biopsy Status post aortic coarctation stent placement I have a stent in my Aorta S/P right and left heart catheterization angioplasty History of carpal tunnel surgery bilateral hands Previous back surgery x2 H/O partial thyroidectomy Family History Mother Diabetes Grandparent Diabetes Sister Diabetes Brother Legacy FamHx Relation: Brother(s) Father Mother No problems noted. Social History Smoking Status: Current every day smoker Tobacco Type: cigarettes Substance Use Type: None Meds Medications and Allergies Allergies atorvastatin (From Lipitor) Allergy (Unknown, Verified 12/08/24 07:34) Unknown Reaction Penicillins Allergy (Verified 12/08/24 07:34) Swelling of Lip/Tongue/Throat Home Medications ergocalciferol (vitamin D2) 1,250 mcg (50,000 unit) capsule 50 mcg PO QWEEK 10/13/22 [History Confirmed 12/05/24] estradiol 2 mg tablet 2 mg PO QPM 03/14/23 [History Confirmed 12/08/24] insulin aspart U-100 100 unit/mL subcutaneous solution (Novolog U-100 Insulin aspart) 19 unit subcut DAILY 10/13/22 [History Confirmed 12/05/24] rosuvastatin 5 mg tablet 5 mg PO QAM 10/13/22 [History Confirmed 12/05/24] aspirin 81 mg tablet,delayed release 81 mg PO DAILY 12/06/23 [History Confirmed 12/08/24] levothyroxine 100 mcg capsule 50 mcg PO DAILY 12/06/23 [History Confirmed 12/05/24] budesonide 3 mg capsule,delayed,extended release 9 mg PO QAM 12/05/24 [History Confirmed 12/05/24] bupropion HCl 150 mg 24 hr tablet, extended release 150 mg PO BID 12/05/24 [History Confirmed 12/05/24] clopidogrel 75 mg tablet 75 mg PO DAILY 12/05/24 [History Confirmed 12/08/24] hydroxyzine HCl 25 mg tablet 25 mg PO QID PRN anxiety 12/05/24 [History Confirmed 12/08/24] lamotrigine 100 mg tablet 100 mg PO QAM 12/05/24 [History Confirmed 12/05/24] Exam Physical Exam Vital Signs: Temp Pulse Resp BP Pulse Ox O2 Del Method O2 Flow Rate 98.1 F 110 H 20 121/71 99 Nasal Cannula 4 12/08/24 10:30 12/08/24 14:00 12/08/24 14:00 12/08/24 14:00 12/08/24 14:00 12/08/24 10:30 12/08/24 10:30 Narrative: General: Awake and alert, appears in no acute respiratory distress HEENT: Head normocephalic atraumatic. Neck: Supple. Pulmonary: Diminished breath sounds to both lung lovelace without wheezing. Cardiovascular: Regular rate and rhythm. No murmurs Abdomen: Soft, nontender and nondistended. Extremities: No edema. 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 Psych: Appears appropriate without signs of anxiety or depression. Results - Pulmonology Intake and Output I&O - Last 24 Hours: Intake & Output 12/08/24 12/08/24 12/08/24 07:59 15:59 23:59 Intake Total 1800 / 1800 Output Total 40 / 40 Balance 1760 / 1760 Weight 61 kg Imaging and Cardiology Chest x-ray: Status: image reviewed by me (Her postoperative chest x-ray was reviewed which is tube in place andno significant pneumothorax or infiltrates.) Assessment/Plan (1) Lung mass: Plan: With concern for underlying malignancy. Unfortunately her prior workup was done in outside facility and I do not have access to her recordsbut per patient she had a CT-guided biopsy with atypical cells but no specific diagnosis. Underwent surgical intervention today with left thorascopic upper lobe wedge resection and mediastinal dissection with chest tube in place and tolerating relatively well. I did not appreciate any air leak from her chest tube. MANAGER IMMUNOLOGY pump was ordered and awaiting initiation for pain control. Encourage incentive spirometry use. I will add bronchodilator therapy given the significant prior smoking history and diminished breathsounds on exam suggesting possible underlying COPD. Discussed with the patient and family bedside. Documented By: Shanika Hyman MD 12/08/24 162 Signed By: 12/08/24 1626 [facility]05-09-2025 Evaluation note* Diagnosis Onset Date Resolution Status Admit Date Lung mass acute December 08, 2024 7:01am [facility] Work Phone: 1(569) 274-972104-24-2025 History of Present illness Narrative* Katarzyna Castro MD - 11/23/2024 2:45 PM EDT CARDIOLOGY OFFICE NOTE Date: 11/23/2024 Patient: Cari Hale Date of : 1965 Primary Physician: Renate Diallo DO REASON FOR VISIT / CHIEF COMPLAINT: Preoperative cardiac clearance follow-up. HPI: Cari Hale was seen in cardiac evaluation at the [facility] Cardiology office November 23, 2024. The patients problems are listed as in the impression below. Electronic medical records reviewed. 59-year-old woman with lung cancer pending left lobectomy. Returns for preoperative testing. She feels well otherwise. She has some atypical chest pain and dyspnea on exertion. Lexiscan stress test and echocardiogram as noted below were both normal. Patient denies Chest Pain, SOB, Lightheadedness, Dizziness, TIA or CVA symptoms. No CHF or Edema. No Palpitations. No GI, or Bleeding Issues. No Recent Fever or Chills. Cardiovascular and general review of systems is otherwise negative. A 14-system review is otherwise negative, other than noted. PHYSICAL EXAMINATION: Vitals: 11/23/24 1610 BP: 102/60 Pulse: 60 General: No acute distress. Alert and oriented. Head And Neck Examination: No jugular venous distention, no carotid bruits, no mass. Carotid upstrokes preserved. Oral mucosa moist. No xanthelasma. Head and neck examination otherwise unremarkable. Lungs: Clear to auscultation and percussion. No wheezes, no rales, and no rhonchi. Chest: Excursion appeared to be normal. No chest wall tenderness on palpation. Heart: Normal S1 and S2. No S3. No S4. No rub. Grade 1/6 systolic murmur, best heard at the left sternal border. Point of maximal impulse was within normal limits. Abdomen: Soft. Nontender. No organomegaly. No bruits. No masses. Extremities: No bipedal edema. No clubbing. No cyanosis. Pulses are strong throughout. No bruits. Musculoskeletal Exam: No ulcers, otherwise unremarkable. Neuro: Neurologically appeared grossly intact. Tremor. IMPRESSION: Preoperative cardiac clearance, acceptable cardiac candidate for planned surgery. Lung cancer, pending left lobectomy Pneumothorax post recent CT biopsy Dyspnea on exertion Chest pain, atypical Claudication Snoring Abnormal ECG Coronary artery disease, history of reported coronary angioplasty age 21 Negative Lexiscan perfusion stress test, LVEF 74%, 10/2024. Normal LV systolic function, LVEF 60 to 65%, echocardiogram 10/2024. Ischemic cardiomyopathy history, anterior wall hypokinesia, LVEF 30 to 35%, echocardiogram, 12/2021. LV diastolic dysfunction No cardiac valvular heart disease. Hyperlipidemia Diabetes, insulin-dependent COPD Hypothyroidism, on replacement Degenerative joint disease Prior lumbar laminectomy Claustrophobia Anxiety Vitamin D deficiency Ulcerative colitis Depression Ongoing tobacco abuse Allergies to penicillin and Lipitor. Otherwise as per assessment below. RECOMMENDATIONS: Patient overall is doing well. She was reassured of the above findings. She should be an acceptablecardiovascular risk for planned surgery. She was reassured. Exercise dietary program. Hydration. She does have a tremor which may be due to her overtreated thyroid. Primary care will address. She will continue her current medications. Refills were provided Promethean portal use was encouraged. We will plan to see back in 4 months with Laboratory Studies and ECG as ordered. Patient will follow up with their primary physician for general care. The patient knows to contact medical care earlier if need be. ALLERGIES: Penicillins, Pravastatin, and Atorvastatin MEDICATIONS: Current Outpatient Medications Medication Instructions aspirin 81 mg EC tablet 1 tablet, Once budesonide EC (Entocort EC) 3 mg 24 hr capsule 3 capsules, Daily before breakfast buPROPion XL (WELLBUTRIN XL) 150 mg, 2 times daily cholecalciferol (VITAMIN D-3) 50,000 Units, Once Weekly clopidogrel (Plavix) 75 mg tablet 1 tablet, Daily dicyclomine (BENTYL) 20 mg, As needed estradiol (Estrace) 2 mg tablet 1 tablet, Nightly ibuprofen 800 mg tablet 1 tablet, 2 times daily PRN lamoTRIgine (LaMICtal) 150 mg tablet 1 tablet, Daily levothyroxine (SYNTHROID, LEVOXYL) 150 mcg, Daily NovoLOG U-100 Insulin aspart 100 unit/mL injection Use as directed with insulin pump. Max daily dose 90 units. progesterone (Prometrium) 100 mg capsule 1 capsule, Nightly propranolol LA (Inderal LA) 80 mg 24 hr capsule 1 capsule, Daily rosuvastatin (Crestor) 5 mg tablet 1 tablet, Daily ELECTROCARDIOGRAM: None this visit CARDIAC TESTING: Lexiscan Myoview perfusion stress test, 10/2024: Normal Lexiscan perfusion study, LVEF 74%. Echocardiogram, 10/2024: Normal LV function. LVEF 60 to 65%. LV diastolic dysfunction. No significant valvular heart disease. LABORATORY DATA: 08/05/2024: Chem-7, CBC normal except for glucose 223. TSH less than 007. Cholesterol 193, triglyceride 43, LDL 119, LDL 52 PROBLEM LIST: Problem List[1] Katarzyna Castro MD, FACC [facility] / Cardiology Of Note: Yogome voice recognition dictation software was utilized partially in the preparation of this note,therefore, inaccuracies in spelling, word choice and punctuation may have occurred which were not recognized at the time of signing. Patient was seen and examined with total time of visit including chart preparation, rooming, and chart completion exceeding 40 minutes. Ida Danielle RN am scribing for, and in the presence of Dr. Katarzyna Castro MD, FACC. I, Dr. Katarzyna Castro MD, FACC, personally performed the services described in the documentation as scribed by Ida Pelaez RN in my presence, and confirm it is both accurate and complete. [1] Patient Active Problem List Diagnosis BMI 24.0-24.9, adult Ulcerative colitis Depression Abnormal echocardiogram Mitral valve regurgitation Cardiomyopathy, ischemic CAD (coronary artery disease) Mixed hyperlipidemia Pre-operative clearance Malignant neoplasm of left lung (Multi) Tobacco abuse Anxiety Dyspnea on exertion Claudication Acute cataract Snoring Chest pain Abnormal EKG Hx of myocardial infarction Type 1 diabetes (Multi) [facility] Work Phone: [phone]) 545-207604-24-2025 Instructions* Patient Instructions* Angelica Contreras LPN - 11/23/2024 2:45 PM EDT Please bring all medicines, vitamins, and herbal supplements with you when you come to the office. Prescriptions will not be filled unless you are compliant with your follow up appointments or have a follow up appointment scheduled as per instruction of your physician. Refills should be requested at the time of your visit. documented in [facility] Work Phone: [phone]) 182-381304-19-2025 Nuclear medicine Diagnostic study note [facility] [place] [address] Nuclear Medicine Report Signed Patient: Cari Hale MR#: [id number] : 1965 Acct:[id number] Age/Sex: 59 / F ADM Date: 5 Loc: NM Room: Type: [facility] CLI Attending Dr: Katarzyna Castro MD Copies to: MD Katarzyna Crockett~ Ordering Provider: Katarzyna Castro Date of Service: 11/17/24 NM/NM german perf SPECT rest & str: Z01.818 REFERRING PHYSICIAN: Katarzyna Castro MD REASON FOR STUDY: Shortness of breath and preoperative risk assessment. PROCEDURE: The patient underwent 1-day rest/stress protocol. Rest images obtained by injecting 6.6 mCi of Cardiolite. Stress images obtained by injecting 18.6 mCi of Cardiolite. Subsequently, gated SPECT and ejection fraction studies were performed. IMAGING RESULT: This appears to be a good study. It appears to be fairly normal. There is no clear pattern of ischemia or myocardial infarction. Left ventricular ejection fraction appears normal, calculated at 74%. TID index is normal at 0.87. CONCLUSION: 1. Normal myocardial perfusion study. 2. No ischemia or myocardial infarction. 3. Normal left ventricular systolic function and wall motion. 4. No previous study available for comparison. Transcribed By: ROXANNE 11/17/241930 Dictated By: Roseanne Nguyen MD 11/17/241830 Signed By: 11/18/24 9252 [facility] Work Phone: [phone]) 268-788704-17-2025 Radiology Diagnostic study [facility] [place] [address] [place] [address] Ultrasound Report Signed Patient: Cari Hale MR#: [id number] : 1965 Acct:[id number] Age/Sex: 59 / F ADM Date: 5 Loc: [place] Room: Type: [facility] Attending Dr: Renate Diallo DO Ordering Provider: Renate Diallo DO Date of Service: 11/16/24 MM/MM special view LT w/CAD: R92.8 ([id number]) US/US breast LT complete: R92.8 Copies to: Renate Diallo DO~ LEFT Diagnostic Full Field digital mammogram with 3-D imaging. Full field digital CC and MLO imaging performed. CAD utilized. COMPARISON: Abnormality of the left breast anteriorly demonstrating 3 cm region of architectural distortion. Patient has history of lumpectomy of the left breast 06/19/2010. HISTORY: Follow-up assessment of anterior left breast abnormality BREAST COMPOSITION: Scattered fibroglandular densities of the breast parenchyma identified BREAST CALCIFICATIONS: Benign calcifications present. VASCULAR CALCIFICATIONS: None ARCHITECTURAL DISTORTION: Architectural distortion identified in the superior anterior portion of the left breast. This likely represents lumpectomy changes. No additional region of architectural distortion identified. BREAST NODULE: None AXILLARY LYMPH NODES: Normal POSTSURGICAL CHANGES: Left breast lumpectomy A targeted left breast ultrasound performed. Echogenic tissue identified. No discrete mass identified. US/US breast LT complete IMPRESSION: The region of architectural distortion in the superior anterior portion of the left breast likely corresponding with patient's history of lumpectomy. There are no additional regions of architectural distortion identified. Consider six-month follow-up with diagnostic left mammogram to fur ther assess. RESULT CODE: 3 Probably Benign Finding Short Term Follow-Up DENSITY CODE: 3 (approximately 51-75% glandular) The breasts are heterogeneouslydense, which may obscure small masses. FOLLOW UP: 6M THE FALSE-NEGATIVE RATE OF MAMMOGRAPHY IS APPROXIMATELY 10%. IMAGING OF A PALPABLE ABNORMALITY MUST BE BASED ON CLINICAL GROUNDS. PATIENT WAS ENTERED INTO A REMINDER SYSTEM WITH A TARGET DUE DATE FOR THE NEXT MAMMOGRAM. Impression dictated by: Jose Maria Ramirez M.D.11/16/2024 10:45 AM Dictation Location: [facility] Tech: Treva Porter Transcribed By: BLANCA 11/16/24 1045 Dictated By: Jose Maria Ramirez DO 11/16/24 1033 Signed By: 11/16/24 1045 [facility]04-10-2025 Evaluation + Plan note* Assessment & Plan Note - Eleanor Phelps MD - 11/09/2024 12:02 PM EDTAssociated Problem(s): Cigarette smoker motivated to quit Counseled on smoking cessation for at least 3 minutes. She is willing to quit. [facility]04-10-2025 Miscellaneous Notes* Assessment & Plan Note - Eleanor Phelps MD - 11/09/2024 12:02 PM EDTAssociated Problem(s): Cigarette smoker motivated to quit Counseled on smoking cessation for at least 3 minutes. She is willing to quit. * Assessment & Plan Note - Eleanor Phelps MD - 11/09/2024 12:01 PM EDT Associated Problem(s): Aortic stenosis We will get PVR and proper duplex ultrasound.Continue aspirin Plavix and statin. Smoking cessation. documented in this encounterMer[facility]04-[facility]-2025 Evaluation + Plan note* Assessment & Plan Note - Eleanor Phelps MD - 11/09/2024 12:01 PM EDT Associated Problem(s): Aortic stenosis We will get PVR and proper duplex ultrasound.Continue aspirin Plavix and statin. Smoking cessation. [facility]04-10-2025 History of Present illness Narrative* Eleanor Phelps MD - 11/09/2024 11:30 AM EDT Images from the original note were not included. To: FLORA ESCALERA, [employer] HPI: Cari Hale is a 59 y.o. female with History of aortic stenosis and critical limb ischemia in theleft lower extremity. I did aortic stenting her wound healed. She feels good her claudication resolved. She is on aspirin Plavix and statin. She continues to smoke. She had a duplex ultrasound of theaorta however it was done for evaluation of aneurysm not for occlusive disease. I discussed with her getting proper duplex ultrasound and PVR.. Review of Systems: Review of Systems Constitutional: Negative. HENT: Negative. Respiratory: Negative. Cardiovascular: Negative. Gastrointestinal: Negative. Endocrine: Negative. Genitourinary: Negative. Musculoskeletal: Negative. Skin: Negative. Neurological: Negative. Hematological: Negative. Medications: Current Outpatient Medications on File Prior to Visit Medication Sig Dispense Refill aspirin 81 mg TAKE 1 TABLET (81 MG TOTAL) BY MOUTH IN THE MORNING 90 tablet 1 budesonide EC (ENTOCORT EC) 3 mg 24 [...] mouth in the morning. 30 tablet 12 ergocalciferol (DRISDOL) 1,250 mcg (50,000 unit) capsule [...] the morning. Indications:excessive fat in the blood. escitalopram (LEXAPRO) 10 mg tablet Take 1 tablet (10 mg total) by mouth in the morning. (Patient not taking: Reported on 11/09/2024) No current facility-administered medications on file prior to visit. Past Medical History: Past Medical History: Diagnosis Date Abnormal menstruation 02/14/2024 HAS HAD MENSTRAL CYCLE X8 MONTHS AT AGE 59 Anxiety Aortic stenosis Chronic ulcerative colitis with complication (CMS-HCC) 2019 Coronary artery disease Dental disease PARTIALS 1 UPPER AND LOWER HAS 1 Depression FHx: tremor Hypercholesteremia Hypothyroidism LEFT REMOVED Open wound of great toe SINCE 12/2023 HAD INGROWN TOENAIL REMOVED AND HAS HAD WOUND SINCE Panic disorder Rash Thin skin Type 1 diabetes ([facility]) Past Surgical History: Past Surgical History: Procedure Laterality Date ANGIOGRAM EXTREMITY LOWER WITH IVUS Left 02/22/2024 Performed by Eleanor Phelps MD at [facility] PROC AORTOGRAM WITH RUNOFF (AORTIC STENT WITH SHOCKWAVE INTRAVASCULAR LITHOTRIPSY) N/A 02/22/2024 Performed by Eleanor Phelps MD at [facility] PROC AVULSION TOENAIL PLATE 12/2023 INGROWN TOENAIL LEFT GREAT TOE BACK SURGERY CARDIAC CATHETERIZATION COLONOSCOPY X4-5 LEFT sfa DRUG BALLOON ANGIOPLASTY Left 02/22/2024 Performed by Eleanor Phelps MD at [facility] PROC THYROID SURGERY Vascular Invasive bilat lower extremity angiogram Left 01/21/2024 Performed by Eleanor Phelps MD at [facility] CARDIAC CATH LABS Social and Family History: [...] Social History Narrative Not on file Social Drivers of Health Financial Resource Strain: Low Risk (03/28/2024) Received from [facility] Overall Financial Resource Strain (CARDIA) Difficulty of Paying Living Expenses: Not hard at all Food Insecurity: No Food Insecurity (11/03/2024) Received from [facility] Hunger Vital Sign Worried About Running Out of Food in the Last Year: Never true Ran Out of Food in the Last Year: Never true Transportation Needs: No Transportation Needs (11/03/2024) Received from [facility] PRAPARE - Transportation Lack of Transportation (Medical): No Lack of Transportation (Non-Medical): No Physical Activity: Inactive (11/03/2024) Received from [facility] Exercise Vital Sign Days of Exercise per Week: 0 days Minutes of Exercise per Session: 0 min Stress: Not on file Social Connections: Not on file Interpersonal Safety: Not on file Housing Instability: Low Risk (11/03/2024) Received from [facility] Housing Stability Vital Sign Unable to Pay for Housing in the Last Year: No Number of Times Moved in the Last Year: 0 Homeless in the Last Year: No Family History Problem Relation Age of Onset Anesthesia problems Father CONFUSION Recent Labs: Recent and relative labs were reviewed and interpreted and contributed to the assessment and plan below. Vitals: BP 112/64 (BP Site: Right Arm, BP Postition: Sitting, BP CUFF SIZE: M (9-13 inches)) Pulse 52 Ht 160 cm (5' 3 ) Wt 59.9 kg (132 lb) BMI 23.38 kg/m Body mass index is 23.38 kg/m . Physical Exam: Physical Exam Constitutional: [...] content normal. Judgment: Judgment normal. Recent testing: Aortic duplex Assessment and Plan: Problem List Cigarette smoker motivated to quit Current Assessment & Plan Counseled on smoking cessation for at least 3 minutes. She is willing to quit. Aortic stenosis - Primary Current Assessment & Plan We will get PVR and proper duplex ultrasound.Continue aspirin Plavix and statin. Smoking cessation. Cari was seen today for aortia stenosis to go over testing completed in [facility]. Diagnoses and all orders for this visit: Aortic valve stenosis, etiology of cardiac valve disease unspecified Cigarette smoker motivated to quit Eleanor Phelps MD, SOLOMON, RPVI, FSVS, FACS [facility] [employer] [facility] This note was created with the assistance of a speech recognition program. While intending to generate a timely document that accurately reflects the content of the visit, no guarantee can be provided that every grammatical or spelling mistake has been or will be identified or corrected. Thank you for your understanding. documented in this encounterMer[facility]04-[facility]25 Instructions* Patient Instructions* Eleanor Phelps MD - 11/09/2024 11:30 AM EDT Are You Ready To Kick The Habit? Free Tobacco Cessation Resources [facility] Services [facility] provide all employees with free tobacco cessation services that include: Counseling to understand nicotine addiction Education about medications that can help you successfully quit Assistance with developing a plan to quit Call to set up an individual appointment or find out when group classes will be held: [facility]: [phone] [facility]: [phone] [facility]: [phone] [facility]: [phone] Quit Smoking Action Plan and Resources [facility] offers an eight-week, online smoking cessation plan to all [facility] employees, regardless of whether [place] is your medical insurance provider. Go to www.SciQuest.org/employeewellness and click the Health Risk Assessment and Resources link to get started. In the K[employer]os[employer]Prphuf menu, click Action Plans instead of Health Risk Assessment to access the Quit Smoking Action Plan. Additional smoking cessation resources are also available to all [facility] employees on the Yreae[employer]Ktbjoh web page at www.LightArrow.com/quitsmoking. [place] Tobacco Cessation Program If [employer] is your medical insurance provider, there are more free resources available to you, including: No copays or deductibles on local tobacco cessation counseling services to help you quit Prescription assistance for tobacco cessation medications to help you quit For details about the tobacco cessation program available to [employer] members, go to www.LightArrow.Scopis (Search: Tobacco Cessation Program). [place] Tobacco Quit Line 2-329-WCVK-NOW ( ) is a toll-free, telephonic service that helps [place] residents quit smoking and using tobacco. It is staffed by experts who tailor a quit plan for you and provide you with advice. [place] Tobacco Quit Line 2-043-NJDJ-NOW ( ) is a toll-free, telephonic service that helps [place] residents quit smoking and using tobacco. It is staffed by experts who tailor a quit plan for you and provide you with advice. Two weeks of nicotine replacement therapy may be provided at no charge, if needed. Additional Resources These national organizations also offer free information and resources to help you quit tobacco: [place] [employer]--www.cancer.org/healthy/stayawayfromtobacco [place] [employer]--www.heart.org (Search: Quit Smoking) Centers for Disease Control and Prevention--www.cdc.gov/tobacco [place] Lung [employer]--www.lungusa.org documented in this encounterMercer County Community Hospital3Scan [facility] [id number] History of Present illness Narrative* Lissa Malone, DO - 11/01/2024 1:45 PM EDT Subjective Patient ID: HPI Patient presents today following neck CT scan which I reviewed and I reviewed with the radiologist.I do not see anything pathologic in the left neck and again did not see anything on ultrasound. Review of Systems ROS The specialty specific review of systems is noncontributory except for that recorded in the intake questionnaire and /or described in the history of present illness. Objective ENT Physical Exam Physical Exam Constitutional: Appearance: Normal appearance. HENT: Head: Atraumatic. Ears: External ear shows no abnormality Bilateral ear canals are clear Tympanic membranes intact, no evidence of middle ear fluid or other pathology. Nose: External nose appears to be normal Nares patent. Septal deviation to the No evidence of polyp, mass or pus bilaterally. Oral Cavity: No evidence of trismus Lips appear normal Dental Tongue of normal size and configuration, floor of mouth mucosa clear. Buccal mucosa shows no evidence of ulceration, mass or other abnormality Hard palate soft palate mucosa intact with no evidence of mass, ulceration or other abnormality Uvula of normal size and configuration Oropharynx: Tonsils atrophic Posterior pharyngeal wall normal Neck: No evidence of palpable abnormality Thyroid without evidence of thyromegaly or mass. No cervical lymphadenopathy present. Cardiovascular: Rate and Rhythm: Normal rate and regular rhythm. . Skin: General: Skin is warm and dry. Neurological: General: No focal deficit present. Mental Status: alert and oriented to person, place, and time. Assessment/Plan Cari was seen today for neck mass. Diagnoses and all orders for this visit: Neck mass (Primary) I had a discussion with the patient and her partner. At this point, because I can not palpate or see anything with both ultrasound and CT imaging that I am not going to perform a neck exploration looking for a needle in a hay stack If this is malignant it will eventually make itself no but at this time she really needs it get taken care of for her lung tumor. I asked her to call me after she recovers from her lung surgery and I will reexamine her and probably reimage her at that point. documented in this encounterMadison Medical [id number] History of Present illness Narrative* Lissa Malone DO - 10/30/2024 2:00 PM EDT Subjective Left neck mass ID: HPI Patient is a 59-year-old female referred by Dr. Turner for a left sided PET positive neck lesion. Patient is being worked up for left-sided lung tumor and this showed up on the PET.I personally reviewed the PET. The area has not SUV of greater than [address] scan that comes with this however is very small and without contrast. I can not really see the lesion on the CT. Patient is a long-timecigarette smoker, greater than 50 pack years. Denies alcohol use. Review of Systems ROS The specialty specific review of systems is noncontributory except for that recorded in the intake questionnaire and /or described in the history of present illness. Objective ENT Physical Exam Physical Exam Constitutional: Appearance: Normal appearance. HENT: Head: Atraumatic. Ears: External ear shows no abnormality Bilateral ear canals are clear Tympanic membranes intact, no evidence of middle ear fluid or other pathology. Nose: External nose appears to be normal Nares patent. Septal deviation to the right No evidence of polyp, mass or pus bilaterally. Oral Cavity: No evidence of trismus Lips appear normal Dental decent Tongue of normal size and configuration, floor of mouth mucosa clear. Buccal mucosa shows no evidence of ulceration, mass or other abnormality Hard palate soft palate mucosa intact with no evidence of mass, ulceration or other abnormality Uvula of normal size and configuration Oropharynx: Tonsils Posterior pharyngeal wall Neck: No evidence of palpable abnormality Thyroid without evidence of thyromegaly or mass. No cervical lymphadenopathy present. Cardiovascular: Rate and Rhythm: Normal rate and regular rhythm. . Skin: General: Skin is warm and dry. Neurological: General: No focal deficit present. Mental Status: alert and oriented to person, place, and time. FIBEROPTIC NASOPHARYNGOLARYNGOSCOPY A diagnostic flexible fiberoptic laryngoscopy was performed. The flexible fiberoptic laryngoscope was placed into the nose and advanced to the level of the tip of the epiglottis. Examination of the larynx including both surfaces of the epiglottis false and true vocal folds, arytenoids and surrounding mucosal surfaces show no evidence of lesion, ulceration or mass. Normal bilateral true vocal foldmotion is present. Bilateral piriform sinuses and base of tongue appear without lesion Neck ultrasound Interrogation of the left neck with ultrasound failed to reveal a mass. There may be something underneath the posterior aspect of the left submandibular gland can not from the gland. I do not see a large lymph node at the jugulodigastric area. On the right, some subcentimeter lymph nodes are noted of normal size and configuration with fatty hilus. I did not look at thyroid. Assessment/Plan Cari was seen today for neck mass. Diagnoses and all orders for this visit: Neck mass Comments: The PET-CT is highly suspicious for malignancy. This may be in the tail of the parotid at which point that would be a Warthin's tumor. Orders: - CT soft tissue neck w IV contrast; Future I am going to obtain a dedicated neck CT scan with contrast and hopefully see her back later this week. documented in this encounterMadison Medical CenterVmsyxiuigi09-24-2753 NoteSinus rhythm, biatrial enlargement, poor wave anterior progression. Rate 80.[id number] History of Present illness Narrative* Katarzyna Castro MD - 10/26/2024 9:30 AM EDT CARDIOLOGY CONSULTATION NOTE Patient: Cari Hale Date of : 1965 Date: 10/26/2024 Referring physician: Mac Turner MD REASON FOR CONSULT / CHIEF COMPLAINT: Preoperative cardiac clearance IMPRESSION: Preoperative cardiac clearance, pending lung cancer, Lung cancer, pending left lobectomy Pneumothorax post recent CT biopsy Dyspnea on exertion Chest pain, atypical Claudication Snoring Abnormal ECG Coronary artery disease, history of reported coronary angioplasty age 21 Ischemic cardiomyopathy, anterior wall hypokinesia, LVEF 30 to 35%, echocardiogram, 12/2021 Hyperlipidemia Diabetes, insulin-dependent COPD Hypothyroidism Degenerative joint disease Prior lumbar laminectomy Claustrophobia Anxiety Vitamin D deficiency Ulcerative colitis Depression Ongoing tobacco abuse Allergies to penicillin and Lipitor. Otherwise as per assessment below. RECOMMENDATIONS: Patient has above-noted history and findings. She does have a lung cancer and is scheduled for leftfluoroscopic upper lobectomy with possible wedge resection. Surgery has not been scheduled yet. Preoperative clearance was requested. Given her past history and symptomatology would suggest the following for preoperative assessment: Stress Lexiscan Myoview perfusion study, echocardiogram and updated laboratory studies. Further recommendations will be rendered following review. Patient is currently holding her Plavix and would suggest that she continue holding this at this time. No new medications will be started at this time. Exercise dietary program. Hydration. MyChart portal use was encouraged. We will plan to see back following the above testing with Laboratory Studies and ECG as noted. Patient will follow up with their primary physician for general care. The patient knows to contact medical care earlier if need be. HPI: Cari Hale was seen in cardiac evaluation at the [facility] Cardiology office October 26, 2024. The patients problems are listed as in the impression above. Electronic medical records reviewed. Patient is a pleasant 59-year-old hyperlipidemic, diabetic woman with reported prior coronary angioplasty at age 31 and now with left long adenocarcinoma whom is scheduled for left upper lobectomy wedge resection with Dr. Maddox. We are asked to see the patient for preoperative assessment. Patient has not followed up with cardiology for almost 30 years. Reviewing her records that she didhave an echocardiogram in 2021 which noted ischemic cardiomyopathy anterior hypokinesia and ejection fraction of 30 to 35%. She does have COPD. She still continues to smoke. She admits to dyspnea on exertion with stairs. She has chest pain which she describes as a sharp-like discomfort and sometimes with exertion. She does have lower extremity claudication symptoms. She snores. She is not particularly tired. She has been noted to have apnea suggesting possible sleep apnea. In addition she has a history of ulcerative colitis, depression and anxiety. She has been maintained on Aspirin and Plavix until recent and is discontinued this in anticipation of her surgery. She has no other significant cardiovascular complaints. Patient denies Chest Pain, SOB, Lightheadedness, Dizziness, TIA or CVA symptoms. No CHF or Edema. No Palpitations. No GI, or Bleeding Issues. No Recent Fever or Chills. Cardiovascular and general review of systems is otherwise negative. A 14-system review is otherwise negative, other than noted. ALLERGIES: Allergies Allergen Reactions Penicillins Anaphylaxis, Rash, Shortness of breath, Swelling and Unknown ARREST respiratory arrest BABY respiratory arrest respiratory arrest ARREST respiratory arrest BABY Pravastatin Myalgia Muscle pains and blurred vision reports seeing stars Atorvastatin Nausea Only, Myalgia, Other, Rash and Unknown Severe muscle aches MEDICATIONS: Current Outpatient Medications Medication Instructions aspirin 81 mg EC tablet 1 tablet, Once budesonide EC (Entocort EC) 3 mg 24 hr capsule 3 capsules, Daily before breakfast buPROPion XL (WELLBUTRIN XL) 150 mg, 2 times daily cholecalciferol (VITAMIN D3) 50,000 Units, Once Weekly clopidogrel (Plavix) 75 mg tablet 1 tablet, Daily dicyclomine (BENTYL) 20 mg, As needed estradiol (Estrace) 2 mg tablet 1 tablet, Nightly ibuprofen 800 mg tablet 1 tablet, 2 times daily PRN lamoTRIgine (LaMICtal) 150 mg tablet 1 tablet, Daily levothyroxine (SYNTHROID, LEVOXYL) 150 mcg, Daily NovoLOG U-100 Insulin aspart 100 unit/mL injection Use as directed with insulin pump. Max daily dose 90 units. progesterone (Prometrium) 100 mg capsule 1 capsule, Nightly propranolol LA (Inderal LA) 80 mg 24 hr capsule 1 capsule, Daily rosuvastatin (Crestor) 5 mg tablet 1 tablet, Daily PAST MEDICAL HISTORY: As per impression above. No other significant past medical or surgical history appreciated. SOCIAL HISTORY: . No children. Smokes 1 pack of cigarettes per day. 04-[id number] smoking history. Occasional wine use. No illicit drug use. FAMILY HISTORY: Negative family history of CAD VITALS: Vitals: 10/26/24 0956 BP: 108/72 Pulse: 80 Wt Readings from Last 4 Encounters: 10/26/24 60.3 kg (133 lb) PHYSICAL EXAMINATION: General: No acute distress. Alert and oriented. Head And Neck Examination: No jugular venous distention, no carotid bruits, no mass. Carotid upstrokes preserved. Oral mucosa moist. No xanthelasma. Head and neck examination otherwise unremarkable. Lungs: Clear to auscultation and percussion. No wheezes, no rales, and no rhonchi. Chest: Excursion appeared to be normal. No chest wall tenderness on palpation. Heart: Normal S1 and S2. No S3. No S4. No rub. Grade 1/6 systolic murmur, best heard at the left sternal border. Point of maximal impulse was within normal limits. Abdomen: Soft. Nontender. No organomegaly. No bruits. No masses. Extremities: No bipedal edema. No clubbing. No cyanosis. Pulses are strong throughout. No bruits. Musculoskeletal Exam: No ulcers, otherwise unremarkable. Neuro: Neurologically appeared grossly intact. ELECTROCARDIOGRAM: Sinus rhythm, biatrial enlargement, poor wave anterior progression. Rate 80. CARDIAC TESTING: None this visit LABORATORY DATA: None this visit Katarzyna Castro MD, [facility] / Cardiology Of Note: Yogome voice recognition dictation software was utilized partially in the preparation of this note,therefore, inaccuracies in spelling, word choice and punctuation may have occurred which were not recognized at the time of signing. Patient was seen and examined with total time of visit including chart preparation, rooming, and chart completion exceeding 40 minutes. Ida Danielle RN am scribing for, and in the presence of Dr. Katarzyna Castro MD, FACC. I, Dr. Katarzyna Castro MD, [facility], personally performed the services described in the documentation as scribed by Ida Pelaez RN in my presence, and confirm it is both accurate and complete. documented in this encounterMari[facility] Work Phone: [phone] 249-127803-27-2025 Instructions* Patient Instructions* Monet Ledezma CMA - 10/26/2024 9:30 AM EDT Please bring all medicines, vitamins, and herbal supplements with you when you come to the office. Prescriptions will not be filled unless you are compliant with your follow up appointments or have a follow up appointment scheduled as per instruction of your physician. Refills should be requested at the time of your visit. EKG done in office today documented in this encounterMarietta [facility] Hospital Work Phone: [phone]) 959-362103-10-2025 History of Present illness Narrative* Alexandra Mars RN - 10/09/2024 11:06 AM EDT Band-shabana to left anterior chest site clean, dry, and intact. No oozing or drainage present. Pt denies pain. Pt denies shortness of breath. Dr Dave would like pt to wait until after CXR completed before pt resumes drinks and snacks. Pt made aware 1110 Pt's at cart-side. Pt's VSS. 1115 Blood sugar reading 122. 1116 Pt's VSS. Pt denies pain. Band-shabana to left anterior chest site clean, dry, and intact. No oozing or drainage present.. 1131 Pt's VSS. Pt denies pain. Band-shabana to left anterior chest site clean, dry, and intact. No oozing or drainage present.. Pt states having pain to left side upon breathing and states it's not thatbad and rates pain a 12/09. 1147 Pt's VSS. Pt states having some pain under left breast. Band-shabana to left anterior chest site clean, dry, and intact. No oozing or drainage present. Pt denies shortness of breath. 1151 Pt taken via cart to xray for post procedure CXR. 1202 Pt returned from CXR. 1207 Pt's VSS. Pt states having some pain under left breast. Band-shabana to left anterior chest site clean, dry, and intact. No oozing or drainage present. Pt denies shortness of breath. [address] Dave would like her to have another CXR in an hour. Dr Dave made aware pt with 5/10 left chest/breast area. Pt denies shortness of breath. * Alexandra Mars RN - 10/09/2024 9:53 AM EDT Pt ambulated from bathroom to CT holding with steady gait and changed into gown independently . 1007 IV started. Pt tolerated well. Blood obtained for blood patch. 1010 Dr Dave at cart-side explaining procedure, risks, and answering questions, and assessing pt. 1012 Pt's VSS. Pt denies pain. 1015 Pt's allergy list, medical history, and home medication list reviewed. Pt began holding aspirin and plavix since 10/04/24. Pt has not eaten or drank since before midnight. documented in this encounterBon [facility] Hospital Discharge instructions* Discharge Instructions* Divine Pineda RN - 10/09/2024 10:53 AM EDT BIOPSY DISCHARGE INSTRUCTIONS ACTIVITY: Rest today. Expect to be sore for 1 to 2 days. No heavy bending, lifting , stretching, pushing or pulling for at least 24 hours. Do not lift anything over 10 pounds for the next 24 - [address] BATHING: May shower, bathe, or swim after 24 hours. Pat the site dry. May remove large band aid after 24 hours. DIET: May resume your normal diet. MEDICATION: * Resume home medication unless otherwise instructed by your physician. * (If Applicable) If taking any blood thinners or Aspirin, hold for 24 hours after biopsy. * May take mild pain reliever, as needed, such as Acetaminophen or Ibuprofen. COMPLICATIONS RELATED TO BIOPSY: - Dizziness, weakness, fatigue - Bruising/firmness/ and/or pain at the site. - Extreme pain after leaving the hospital. - Large or heavy bleeding at biopsy site. IF THESE SYMPTOMS OCCUR AND BECOME SEVERE, REPORT TO THE EMERGENCY ROOM FOR FURTHER EVALUATION. For the next 48 hours watch site for redness, drainage, swelling , fever (temp above 101 degrees F), or chills. If these signs of infection occur contact DR. DAVE at [phone]. * Attachments The following attachments cannot be sent through Care Everywhere. * Lung Biopsy: Percutaneous: Post-op (Paraguayan) * Sedation (Paraguayan) documented in this encounterCar[facility] Miscellaneous Notes* Telephone Encounter - Edwige Harkins - 10/05/2024 2:08 PM EST Patient called asking about testing , Asaf) talked to patient about testing completed at [facility] and scheduled a follow up to go over the results. documented in [facility]Mer[facility] Telephone encounter Note* Telephone Encounter - Edwige Harkins - 10/05/2024 2:08 PM EST Patient called asking about testing , Asaf) talked to patient about testing completed at [facility] and scheduled a follow up to go over the results. [facility]08-30-[facility]24 NoteDischarge Summary Admission and Discharge Information Admitting Physician [...] (12/06/2017), Facet joint nerve block (01/17/2014), right smalltrigger finger release (07/17/2013), Injection of nerve root [...] diastolic relaxation. Negative bubble study. Pt was monitoredon telemetry which showed no significant events. Consultation [...] oral glucose in the squad. BS on arrivalto the hospital was 83. Pt does have [...] states she is going to try to cutdown on alcohol intake. Pt did state that [...] agreement with current d/c plan. Services Consulted Branch Lending Officer Consult - Completed -- 03/21/24 20:27:31 EDT [...] 50,000 intl units (1.25 mg) oral capsule, 92838 International_Unit, Oral, qWeek, 3 refills Home aspirin 81 m (more content not included)...[facility] SouthComment on above:Result Comment: Electronically Signed By: Ghada CRUZ\.br\Date and Time Signed: 03/26/24 20:38 EDT\.br\Electronically Co- Signed By: Lee Martinez DO\.br\Date and Time Co-Signed:03/31/24 07:00 [id number] NoteEchocardiology Procedure Exam Date/Time Accession # Ordering Dr. Miller w/ Saline Bubbles 03/22/2024 09:41 EDT [id number] Ghada CRUZ CPT code [id number] Reason for Exam (Echo w/ Saline Bubbles) CVA Report [facility] [address] [place] [address] Adult Echocardiogram Report Name: CARI HALE Study Date: 03/22/2024 08:34 AM BP: 117/77 mmHg Patient Location: [address] [place] [address] HR: 90 : 1965 Gender: Female Height: [...] complete two-dimensional transthoracic echocardiogram was performed (2D, M- mode, spectral and color flow Doppler). Study quality [...] REPORT Dictated: 03/22/2024 8:34 am Oren Mir MD Signed (Electronic Signature): 03/23/2024 10:25 am Signed by: Oren Mir MD Transcribed by: [facility] Technologist: [facility]08-21-2024 Hospital Discharge instructions Patient Education 03/22/2024 16:19:36 Alcohol Misuse and Dependence Information, Adult Alcohol Misuse and Dependence Information, Adult Alcohol is a widely available drug and people choose to drink alcohol in different amounts. Alcoholmisuse and dependence can have a negative effect on your life. Alcohol misuse is when you use alcohol too much or too often. You may have a hard time setting a limit on the amount you drink. Alcohol dependence is when you use alcohol consistently for a period of time, and your body changesas a result. Alcohol dependence can make it hard for you to stop drinking because you may start to feel sick or different when you do not drink alcohol. These symptoms are known as withdrawal. People who drink alcohol very often and in large amounts, may develop what is called an alcohol usedisorder. How can alcohol misuse and dependence affect [...] to stop drinking. This can be very hardto do if you are used to frequently [...] to find support Your health care provider. Seeder: smartrecovery.Koru Local treatment centers or chemical dependency counselors. Local AA groups in your community: aa.org Where to find more information Centers for Disease Control and Prevention: cdc.gov National [place] on Alcohol Abuse and Alcoholism: niaaa.nih.gov Alcoholics [...] the National Suicide Prevention Lifeline at or 294. This is open 24 hours a day. Text the Crisis Text Line at 663326. Summary Alcohol misuse and dependence can have [...] provider. Document Revised: 09/23/2022 Document Reviewed: 09/23/2022 [employer] Patient Education 2022 [employer]. 03/22/2024 16:19:36 High Cholesterol High Cholesterol High [...] of the body. If you have high cholesterol,deposits (plaques) may build up on the booker [...] have not worked. You may be prescribed astatin medicine to help lower your cholesterol levels. [...] fatty acids. Aim to eat fish at least2 times a week. Avoid foods and drinks [...] need help quitting, ask your health careprovider. General instructions Take yqgw-ftf-tctjobl and prescription medicines only as told by your health care provider. Keep all follow-up visits. This is important. Where to find more information [place] Heart Association: www.heart.org National Heart, Lung, and Blood [place]: www.nhlbi.nih.gov Contact a health care provider if: [...] to remember the main warning signs of astroke: ?B - Balance. Signs are dizziness, sudden trouble walking, or loss of balance. ?E - Eyes. Signs are trouble seeing or a sudden change in vision. ?F - Face. Signs are sudden weakness or numbness of the face, or the face or eyelid drooping on oneside. ?A - Arms. Signs are weakness or [...] provider. Document Revised: 10/02/2021 Document Reviewed: 09/22/2021 [employer] Patient Education 2022 [employer]. 03/22/2024 16:19:36 Type 2 Diabetes Mellitus, Diagnosis, Adult Type 2 Diabetes Mellitus, Diagnosis, Adult Type 2 diabetes (type 2 diabetes mellitus) is a long-term, or chronic, disease. In type 2 diabetes,one or both of these problems may be [...] your medical history, a physical exam, and yourblood glucose level. Your blood glucose may be [...] be managed by a specialist called an diet attendant. Type 2 diabetes may be treated by [...] meet with a certified diabetes care and educational therapist? What diabetes medicines do I need, and when should I take them? What equipment will I need to manage my diabetes at home? How often do I need to check my blood glucose? Where can I find a support group for people with diabetes? What number can I call if I have questions? When is my next appointment? General instructions Take mcsc-ywo-jeixnna and prescription medicines only as told by your health care provider. Keep all follow-up visits. This is important. Where to find more information For help and guidance and for more information about diabetes, please visit: [place] Diabetes Association (ADA): www.diabetes.org [place] Association of Diabetes Care and Education Specialists [...] disease. In type 2 diabetes, the pancreas doesnot make enough of a hormone called insulin, [...] provider. Document Revised: 10/13/2021 Document Reviewed: 10/13/2021 [employer] Patient Education 2022 [employer] 03/22/2024 16:19:36 Hypertension, Adult, Onzx-ds-Hixk Hypertension, Adult Hypertension is another name for high blood pressure. High blood pressure forces your heart to workharder to pump blood. This can cause problems [...] at each meal with low-fat (lean) proteins. Low- fat proteins include fish, chicken without skin, eggs, [...] doctor. Keep all follow-up visits. Medicines Take ifas-ukb-nxaqjhk and prescription medicines only as told by your doctor. Follow directions carefully. Do not skip doses of blood pressure medicine. The medicine does not work as well if you skip doses.Skipping doses also puts you at risk for [...] provider. Document Revised: 05/07/2022 Document Reviewed: 05/07/2022 [employer] Patient Education 2022 [employer]. 03/22/2024 16:19:36 Smoking Tobacco Information, Adult Smoking [...] a long-term lung condition that makes it hardto breathe. It also gets worse over time. [...] tobacco and the long-term costs of treating healthproblems from smoking. Secondhand smoke may affect those [...] with someone else, so that you can supporteach other. Talk with your health care provider [...] yoga, exercise, or time spent with friends andfamily. Ask your health care provider about having regular tests (screenings) to check for cancer. This mayinclude blood tests, imaging tests, and other tests. Where to find support To get support to quit smoking, consider: Asking your health care provider for more information and resources. Joining a support group for people who want to quit smoking in your local community. There are manyeffective programs that may help you to quit. Calling the smokefree.gov counselor helpline at 6-769-XELP-NOW ( ). Where to find more information You may find more information about quitting smoking from: Centers for Disease Control and Prevention: cdc.gov/tobacco Smokefree.gov: smokefree.gov [place] Lung Association: freedomfromsmoking.org Contact a health care [...] local community who want to quit smoking. Thereare many effective programs that may help you to quit. This information is not intended to replace advice given to you by your health care provider. Make sure you discuss any questions you have with your health care provider. Document Revised: 07/14/2022 Document Reviewed: 07/14/2022 [employer] Patient Education 2022 [employer]. 03/22/2024 16:19:36 Core Measures Transient Ischemic Attack (TIA) [facility] (Custom) Transient Ischemic Attack You have had [...] a TIA will have a stroke within acouple days, and up to 20% will have a stroke within 3 months. PREVENTION The likelihood of a stroke can be decreased by appropriate treatment of high blood pressure, high cholesterol, diabetes, and by stopping smoking. RISK FACTORS: If you have been told by your doctor or nurse practitioner that you have any of the following risk factors for stroke, work with your health critical care transport nurse to control them. Risk Factors: High Blood [...] Please call [facility]oking Cessation [facility] at [phone] ([facility]), or [phone], ext. [phone] Diabetes: Work with your healthcare professional to keep your blood sugar under control. Check yourblood sugar and take the results to your [...] has been damaged by a fatty buildup insidethe artery wall. Discuss ways to manage this with your health care provider. Atrial Fibrillation (A Fib): In A fib, your heart does not have a normal beat. This may allow clotsto form and puts you at a greater risk for having a stroke. Work with your health care provider to control your A fib. Your doctor may order special medication that helps prevent clots from forming. High blood cholesterol or high blood fats: High cholesterol increases your risk of stroke. Exerciseregularly, but talk to your health care provider first. A diet low in fat and cholesterol can help.If you have any questions about a low fat, low cholesterol diet, you can call our [facility] table runner at [phone] ext [phone]. The goal for total cholesterol is less than 200, and for LDL or the bad cholesterol is less than 100. Lifestyle Management: You increase your risk of stroke if you are overweight or obese, are not veryactive, or drink too much alcohol. Enjoy a diet rich in fruits and vegetables. Exercise regularly and drink alcohol in moderation or no more than two drinks a day for men and no more than one drink aday for non- women, or don't drink at all. This will help decrease your risk of stroke. Oral Contraceptives: Taking control pills or the pill can be a risk factor for stroke especially if you smoke. Discuss using the oral contraceptives and your risk of stroke with your health critical care transport nurse. If this is your first ischemic attack, [...] for more information on strokes, log onto www.[facility].com or www.strokeassociation.org or call the [place] Heart Association at . Revised 08/201803/22/2024 16:19:36 Core Measures: Stroke (Cerebrovascular Accident) [facility], (Custom) Stroke (Cerebrovascular Accident) A stroke is acute of brain tissue, and it is a neurologic emergency. A stroke can cause permanent loss of function of the central nervous system (brain). If the symptoms of a stroke end withoutcomplications in 24 hours, it is diagnosed as [...] factors for stroke, work with your health critical care transport nurse to control them. High Blood Pressure: High [...] Please call [facility]essation [facility] at [phone] ([facility]), or [phone], ext. [phone] Diabetes: Work with your healthcare professional to keep your blood sugar under control. Check yourblood sugar and take the results to your [...] has been damaged by a fatty buildup insidethe artery wall. Discuss ways to manage this with your health care provider. Atrial Fibrillation (A Fib): In A fib, your heart does not have a normal beat. This may allow clotsto form and puts you at a greater risk for having a stroke. Work with your health care provider to control your A fib. Your doctor may order special medication that helps prevent clots from forming. High blood cholesterol or high blood fats: High cholesterol increases your risk of stroke. Exerciseregularly, but talk to your health care provider first. A diet low in fat and cholesterol can help.If you have any questions about a low fat, low cholesterol diet, you can call our [facility] table runner at [phone] Ext. [phone]. The goal for total cholesterol is less than 200, and for LDL or thebad cholesterol is less than 100. Lifestyle Management: You increase your risk of stroke if you are overweight or obese, are not veryactive, or drink too much alcohol. Enjoy a diet rich in fruits and vegetables. Exercise regularly and drink alcohol in moderation or no more than two drinks a day for men and no more than one drink aday for non- women, or don't drink at all. This will help decrease your risk of stroke. Oral Contraceptives: Taking control pills or the pill can be a risk factor for stroke especially if you smoke. Discuss using the oral contraceptives and your risk of stroke with your health critical care transport nurse. TREATMENT TIME IS OF THE ESSENCE! Medications to dissolve a blood clot can only be used within four and a half hours of the onset of symptoms. After that time, treatment of stroke depends on duration of symptoms, severity, and cause. Medications and diet measures may be used to address diabetes, high blood pr essure, and other risk factors. Physical therapy, speech therapy, and occupational therapy specialists will assess you and work to improve any functions impaired by the stroke. Measures will be takento prevent short and custodial complications, including aspiration pneumonia, blood clots in the leg s, bedsores, and falls. HOME CARE INSTRUCTIONS Care [...] to not run out of your medicine. Getmore while you still have a one-week supply. [...] use it at all times. Be sure youkeep your therapy appointments. Diet Certain diets may be prescribed to address high blood pressure, high cholesterol, or diabetes.Foods may need to be a special consistency [...] for more information on strokes, log onto www.[email or web address] or www.strokeassociation.org or call the [place] [employer] Association at (096) [phone]- [phone]. Revised 08/2018 Follow Up Care 03/21/2024 13:41:56 With:Jesse Carr MD, NEU Address: [place] [id number] When:2 to 4 weeks [facility] [id number] NoteGetWell Learning Participants [facility] Understands Education Yes GetWell Education Video Getting Help When You Leave the [facility]08-21-2024 NoteGetWell Understands Education Yes GetWell Education Video After a Hospital Stay: Managing Appointments [facility] Learning Participants [facility]08-21-2024 NoteGetWell Understands Education Yes GetWell Education Video Avoiding Infections in the Hospital [facility] Learning Participants [facility]08-21-2024 NotePatient Education - Text Transient Ischemic Attack You [...] a TIA will have a stroke within acouple days, and up to 20% will have a stroke within 3 months. PREVENTION The likelihood of a stroke can be decreased by appropriate treatment of high blood pressure, high cholesterol, diabetes, and by stopping smoking. RISK FACTORS: If you have been told by your doctor or nurse practitioner that you have any of the following risk factors for stroke, work with your health critical care transport nurse to control them. Risk Factors: High Blood [...] Please call [facility] Smoking Cessation Program at [phone] ([facility]), or [phone], ext. [phone] Diabetes: Work with your healthcare professional to keep your blood sugar under control. Check yourblood sugar and take the results to your [...] has been damaged by a fatty buildup insidethe artery wall. Discuss ways to manage this with your health care provider. Atrial Fibrillation (A Fib): In A fib, your heart does not have a normal beat. This may allow clotsto form and puts you at a greater risk for having a stroke. Work with your health care provider to control your A fib. Your doctor may order special medication that helps prevent clots from forming. High blood cholesterol or high blood fats: High cholesterol increases your risk of stroke. Exerciseregularly, but talk to your health care provider first. A diet low in fat and cholesterol can help.If you have any questions about a low fat, low cholesterol diet, you can call our [facility] table runner at [phone]. The goal for total cholesterol is less than 200, and for LDL or the bad cholesterol is less than 100. Lifestyle Management: You increase your risk of stroke if you are overweight or obese, are not veryactive, or drink too much alcohol. Enjoy a diet rich in fruits and vegetables. Exercise regularly and drink alcohol in moderation or no more than two drinks a day for men and no more than one drink aday for non- women, or don't drink at all. This will help decrease your risk of stroke. Oral Contraceptives: Taking control pills or the pill can be a risk factor for stroke especially if you smoke. Discuss using the oral contraceptives and your risk of stroke with your health critical care transport nurse. If this is your first ischemic attack, [...] to follow-up with yo (more content not included)...[facility]08-21-2024 NoteProgress Note-Physician Assessment/Plan PLAN: 1. TIA (transient ischemic attack) [...] symptoms may be secondary to hypoglycemmia. Pt didhave BS 52 this AM and was asymptomatic. Monitor BS. HgA1C pending. 3. HTN (I10: Essential (primary) hypertension) Propranolol 4. Hyperlipidemia (E78.5: Hyperlipidemia, unspecified) Statin Lipid panel pending. 5. PAD (peripheral artery disease) (I73.9: Peripheral vascular disease, unspecified) Pt reports recent ileac stent placement at [facility] by ? symptoms since that time. ASA/Plavix. I did call and speak to who is requesting CTA of the neck. 6. CAD (I25.10: Atherosclerotic heart disease of [place] coronary artery without angina pectoris) ASA, Plavix 7. Emphysema/COPD (J43.9: Emphysema, unspecified) Med nebs, budesonide 8. Mood disorder (F39: Unspecified mood [affective] disorder) W/anxiety and depression Bupropion, Lamictal 9. Alcohol abuse (F10.10: Alcohol abuse, uncomplicated) Pt significant other reports that pt drinks 2 bottles of wine a night. Pt confirms. [facility] protocol Monitor for s/sx of withdrawl. 10. History of thyroidectomy (E89.0: Postprocedural hypothyroidism) levothyroxine 11. Smoker (F17.210: Nicotine dependence, cigarettes, uncomplicated) Dental Technology Advisor on cessation Nicotine patch DVT Prophylaxis: Heparin [...] 13:45:00) Lymph Auto: 22.4 % (03/21/24 13:45:00) [place] Auto: 10.6 % (03/21/24 13:45:00) Eos Auto: 2.5 % (03/21/24 13:45:00) Basophil Auto: 0.8 % (03/21/24 13:45:00) Neutro Absolute: 6.1 E9/L (03/21/24 13:45:00) Lymph Absolute: 2.1 E9/L (03/21/24 13:45:00) [place] Absolute: 1 E9/L (03/21/24 13:45:00) Eos Absolute: [...] 13:45:00) CO2: 24 mmol/ (more content not included)...[facility] SouthComment on above:Result Comment: Electronically Signed By: Ghada CRUZ\.br\Date and Time Signed: 03/22/24 13:32 EDT\.br\Electronically Co- Signed By: Lee Martinez DO\.br\Date and Time Co-Signed:03/22/24 14:36 [id number] Evaluation + Plan noteExtracted from: Title:APSO Note Author:Monique CRUZ Date:03/22/24 PLAN: [...] Pt reports recent ileac stent placement at [facility] by ? symptoms since that time. ASA/Plavix. I did call and speak to who is requesting CTA of the neck. 6. CAD (I25.10: Atherosclerotic heart disease of squaxin coronary artery without angina pectoris) ASA, Plavix 7. Emphysema/COPD (J43.9: Emphysema, unspecified) Med nebs, budesonide 8. Mood disorder (F39: Unspecified mood [affective] disorder) W/anxiety and depression Bupropion, Lamictal 9. Alcohol abuse (F10.10: Alcohol abuse, uncomplicated) Pt significant other reports that pt drinks 2 bottles of wine a night. Pt confirms. [facility] protocol Monitor for s/sx of withdrawl. 10. History of thyroidectomy (E89.0: Postprocedural hypothyroidism) levothyroxine 11. Smoker (F17.210: Nicotine dependence, cigarettes, uncomplicated) Dental Technology Advisor on cessation Nicotine patch DVT Prophylaxis: Heparin [...] 6. CAD (I25.10: Atherosclerotic heart disease of squaxin coronary artery without angina pectoris) 7. Emphysema/COPD [...] Ordered: Initial Hospital Care/Day High 75 Minutes 34098 2. Type 2 diabetes mellitus with diabetic neuropathy (E11.40: Type 2 diabetes mellitus with diabetic neuropathy, unspecified) AccuChecks AC/HS Pt to use insulin pump. Ordered: Initial Hospital Care/Day High 75 Minutes [id number] 3. HTN (I10: Essential (primary) hypertension) Allow permissive HTN tonight Propranolol Ordered: Initial Hospital Care/Day High 75 Minutes [id number] 4. Hyperlipidemia (E78.5: Hyperlipidemia, unspecified) Statin Lipid panel pending. Ordered: Initial Hospital Care/Day High 75 Minutes 93974 5. PAD (peripheral artery disease) (I73.9: Peripheral vascular disease, unspecified) Pt reports recent stent placement by ? symptoms since that time. ASA/Plavix. 6. CAD (I25.10: Atherosclerotic heart disease of squax[place] coronary artery without angina pectoris) ASA, Plavix Ordered: Initial Hospital Care/Day High 75 Minutes 60488 7. Emphysema/COPD (J43.9: Emphysema, unspecified) Med nebs, budesonide 8. Mood disorder (F39: Unspecified mood [affective] disorder) W/anxiety and depression Bupropion, Lamictal 9. Alcohol abuse (F10.10: Alcohol abuse, uncomplicated) Pt significant other reports that pt drinks 2 bottles of wine a night. Pt confirms. [facility] protocol Monitor for s/sx of withdrawl. 10. History of thyroidectomy (E89.0: Postprocedural hypothyroidism) levothyroxine 11. 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 He inadvertently recorded [...] and other notes but I did not moss picker on any of that. Review of [...] both correctly = 0 Open and close eyes/banking manager release hand: Obeys both correctly = 0 [...] 6. CAD (I25.10: Atherosclerotic heart disease of squax[place] coronary artery without angina pectoris) 7. Emphysema/COPD [...] problems related to lifes (more content not included)...[facility] SouthComment on above:Result Comment: Electronically Signed By: Jumana Min RN\.br\Date and Time Signed: 03/22/24 07:40 EDT\.br\Electronically Co-Signed By: Joseph Woody DO\.br\Date and Time Co- Signed: 03/22/24 10:56 EDT\.br\Electronically Co-Signed By: Jumana Min RN [id number] NoteConsultation Note Chief Complaint weakness, stroke symptoms, since resolved Reason for Consultation TIA/CVA History of Present Illness 9-year-old woman. Drinks 2 bottles of wine daily. Had an episode yesterday in the early afternoon where she woke up in bed and felt like she could not move. She got very upset and anxious and was crying and managed to use a phone voice assistant program manager to call her . He inadvertently recorded [...] and other notes but I did not moss picker on any of that. Review of [...] both correctly = 0 Open and close eyes/banking manager release hand: Obeys both correctly = 0 [...] 6. CAD (I25.10: Atherosclerotic heart disease of squaxin coronary artery without angina pectoris) 7. Emphysema/COPD [...] problems related to lifes (more content not included)...[facility] SouthComment on above:Result Comment: Electronically Signed By: Jumana Min RN\.br\Date and Time Signed: 03/22/24 07:40 EDT\.br\Electronically Co-Signed By: Joseph Woody DO\.br\Date and Time Co- Signed: 03/22/24 10:56 [id number] NoteHistory and Physical Chief Complaint c/o weakness [...] to blood sugar of 64. On arrival [facility] pt's blood sugar had improved to [...] 13:45:00) Lymph Auto: 22.4 % (03/21/24 13:45:00) [place] Auto: 10.6 % (03/21/24 13:45:00) Eos Auto: 2.5 % (03/21/24 13:45:00) Basophil Auto: 0.8 % (03/21/24 13:45:00) Neutro Absolute: 6.1 E9/L (03/21/24 13:45:00) Lymph Absolute: 2.1 E9/L (03/21/24 13:45:00) [place] Absolute: 1 E9/L (03/21/24 13:45:00) Eos Absolute: [...] mg/dL High (03/21/24 16:13:00) POC Device SN: [id number] (03/21/24 16:13:00) POC User ID: [id number] (03/21/24 16:13:00) POC Username: POC Username (03/21/24 16:13:00) UA Spec Desc: Clean Catch (03/21/24 16:27:00) UA Color: Light-Yellow (03/21/24 16:27:00) UA Clarity: Clear (03/21/24 16:27:00) UA Spec Grav: 1.020 (03/21/24 16:27:00) UA pH: 5.5 (03/21/24 16:27:00) UA Protein: Negat (03/21/24 16:27:00) UA Glucose: 4+ Abnorm (more content not included)...[facility] Comment on above:Result Comment: Electronically Signed By: Ghada CRUZ\.br\Date and Time Signed: 03/21/24 20:04 EDT\.br\Electronically Co- Signed By: Ghada CRUZ\.br\Date and Time Co-Signed: 03/21/24 20:05 EDT\.br\Electronically Co-Signed By: Lee Martinez DO\.br\Date and Time Co-Signed: 03/22/24 09:33 [id number] Evaluation + Plan note* Assessment & Plan Note - Eleanor Phelps MD - 03/16/2024 11:28 AM EDTAssociated Problem(s): 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 She is on aspirin Plavix and statin. Will continue aspirin Plavix and Crestor. She will quit smoking. Will get surveillance imaging in 6 months. 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 She is on aspirin Plavix and statin. Will continue aspirin Plavix and Crestor. She will quit smoking. Will get surveillance imaging in 6 months. * Assessment & Plan Note - Eleanor Phelps MD - 03/16/2024 11:27 AM EDT Associated Problem(s): Cigarette smoker motivated to quit Counseled on smoking cessation at length. She is willing to quit. documented in this encounterMer[facility]08-[facility]-2024 Evaluation + Plan note* Assessment & Plan Note - Eleanor Phelps MD - 03/16/2024 11:27 AM EDT Associated Problem(s): Cigarette smoker motivated to quit Counseled on smoking cessation at length. She is willing to quit. [facility]08-15-2024 History of Present illness Narrative* Eleanor Phelps MD - 03/16/2024 10:50 AM EDT Images from the original note were not included. To: FLORA ESCALERA, RAPID OUTSOLE STITCHER-PARTY PLAN SALES AGENT HPI: Cari Hale is a 59 y.o. [...] Aortic stenosis Chronic ulcerative colitis with complication ([facility]) 2019 Coronary artery disease Dental disease PARTIALS 1 UPPER AND LOWER HAS 1 Depression FHx: tremor Hypercholesteremia Hypothyroidism LEFT REMOVED Open wound of great toe SINCE 12/2023 HAD INGROWN TOENAIL REMOVED AND HAS HAD WOUND SINCE Panic disorder Rash Thin skin Type 1 diabetes ([facility]) Past Surgical History: Past Surgical History: Procedure Laterality Date ANGIOGRAM EXTREMITY LOWER WITH IVUS Left 02/22/2024 Performed by Eleanor Phelps MD at [facility] PROC AORTOGRAM WITH RUNOFF (AORTIC STENT WITH SHOCKWAVE INTRAVASCULAR LITHOTRIPSY) N/A 02/22/2024 Performed by Eleanor Phelps MD at [facility] PROC AVULSION TOENAIL PLATE 12/2023 INGROWN TOENAIL LEFT GREAT TOE BACK SURGERY CARDIAC CATHETERIZATION COLONOSCOPY X4-5 LEFT sfa DRUG BALLOON ANGIOPLASTY Left 02/22/2024 Performed by Eleanor Phelps MD at [facility] PROC THYROID SURGERY Vascular Invasive bilat lower extremity angiogram Left 01/21/2024 Performed by Eleanor Phelps MD at [facility] CATH [facility] Social and Family History: [...] gangrene (CMS-HCC) Cigarette smoker motivated to quit Eleanor Phelps MD, SOLOMON, RPVI, FSVS, FACS [facility] [...] you for your understanding. documented in this encounterMer[facility]08-15-2024 Instructions* Patient Instructions* Eleanor Phelps MD - 03/16/2024 10:50 AM EDT Are You Ready To Kick The Habit? Free Tobacco Cessation Resources [facility] Services [facility] provide all employees with free tobacco cessation services that include: Counseling to understand nicotine addiction Education about medications that can help you successfully quit Assistance with developing a plan to quit Call to set up an individual appointment or find out when group classes will be held: [facility]: [phone] [facility]: [phone] [facility]: [phone] [facility]: [phone] Quit Smoking Action Plan and Resources [facility] offers an eight-week, online smoking cessation plan to all [facility] employees, regardless of whether [place] is your medical insurance provider. Go to [email or web address]/employeewellness and click the Health Risk Assessment and Resources link to get started. In the [facility] menu, click Action Plans instead of Health Risk Assessment to access the Quit Smoking Action Plan. Additional smoking cessation resources are also available to all [facility] employees on the [employer] web page at [email or web address]/quitsmoking. [place] Tobacco Cessation Program If [place] is your medical insurance provider, there are more free resources available to you, including: No copays or deductibles on local tobacco cessation counseling services to help you quit Prescription assistance for tobacco cessation medications to help you quit For details about the tobacco cessation program available to [employer] members, go to www.[employer]Arrow.Scopis (Search: Tobacco Cessation Program). [place] Tobacco Quit Line 1-173-LCLV-NOW ( ) is a toll-free, telephonic service that helps [place] residents quit smoking and using tobacco. It is staffed by experts who tailor a quit plan for you and provide you with advice. [place] Tobacco Quit Line 6-873-YWVK-NOW ( ) is a toll-free, telephonic service that helps [place] residents quit smoking and using tobacco. It is staffed by experts who tailor a quit plan for you and provide you with advice. Two weeks of nicotine replacement therapy may be provided at no charge, if needed. Additional Resources These national organizations also offer free information and resources to help you quit tobacco: [place] [employer]--www.cancer.org/healthy/stayawayfromtobacco [place] Heart Association--www.heart.org (Search: Quit Smoking) Centers for Disease Control and Prevention--www.cdc.gov/tobacco [place] Lung Association--www.lungusa.org documented in this encounterMercy [facility]07-24-2024 Miscellaneous Notes* Telephone Encounter - Sharda Lobo CMA - 02/23/2024 4:04 PM EDT Cari called stating there was to be 3 meds ordered after surgery she is needing the meds ordered specifically the antibiotics and sent to [facility] in [place] documented in this encounterMercy Health [facility]07-24-2024 Telephone encounter Note* Telephone Encounter - Sharda Lobo CMA - 02/23/2024 4:04 PM EDT Cari called stating there was to be 3 meds ordered after surgery she is needing the meds ordered specifically the antibiotics and sent to [facility] in [place] [facility]07-15-[facility] Instructions* Pre-Procedure Instructions - Luz Maria Willis RN - 02/14/2024 12:45 PM EDT Your surgery/procedure is scheduled at [facility] on 02/22/24 at 1:30PM Arrival Time 11:30AM [facility] Address: [address] [place], [place] [id number] Park in P1 Parking lot located on [facility]. Report to the Entrance B. Check in at the information desk the surgery. The waiting room located on the second floor. If you have any questions prior to surgery, please call Pre-Admission Clinic at [phone] between 7:30 am and 4:30 pm Wednesday through Wednesday. If you have questions the morning of surgery, please call the Pre-op Department at [phone]. Notify your SURGEON if you develop any [...] would like to schedule therapy at a [facility] Rehab facility, please call [phone] ([phone]). Do not use lotions, creams, powders, perfume, [...] RIGHTS AND RESPONSIBILITIES As a patient at [facility], you have the right to: Receive medical care and be informed of who is taking care of you Be treated with dignity and respect Have a family member/motor vehicle representative of choice and your physician notified of your admission Receive information and actively participate in decisions about your care and treatment Refuse care, treatment and services Decide who may provide your support and speak for you Access holiness and spiritual services Participate in ethical issues [...] of hospital charges and payment methods Patient/patient motor vehicle representative responsibilities are to: Provide information about [...] and report for surgery in clean clothes. [facility]07-15-2024 Miscellaneous Notes* Perioperative Nursing Note - Luz Maria Willis RN - 02/14/2024 12:45 PM EDT PATIENT DIRECTED CALL DR PHELPS OFFICE FOR MEDICATION INSTRUCTIONS FOR DAY OF SURGERY. * Pre-Procedure Instructions - Luz Maria Willis RN - 02/14/2024 12:45 PM EDT Your surgery/procedure is scheduled at [facility] on 02/22/24 at 1:30PM Arrival Time 11:30AM [facility] Address: [address] [place] [address]. [place] [address] Park in [address] Parking lot located on [facility]. Report to the Entrance B. Check in at the information desk the surgery. The waiting room located on the second floor. If you have any questions prior to surgery, please call Pre-Admission Clinic at [phone] between 7:30 am and 4:30 pm Wednesday through Wednesday. If you have questions the morning of surgery, please call the Pre-op Department at [phone]. Notify your SURGEON if you develop any [...] would like to schedule therapy at a [facility] Rehab facility, please call [phone] ([phone]). Do not use lotions, creams, powders, perfume, [...] RIGHTS AND RESPONSIBILITIES As a patient at [facility], you have the right to: Receive medical care and be informed of who is taking care of you Be treated with dignity and respect Have a family member/motor vehicle representative of choice and your physician notified of your admission Receive information and actively participate in decisions about your care and treatment Refuse care, treatment and services Decide who may provide your support and speak for you Access holiness and spiritual services Participate in ethical issues [...] of hospital charges and payment methods Patient/patient motor vehicle representative responsibilities are to: Provide information about [...] surgery in clean clothes. documented in this encounterMercy Health Defiance Hospital07-15-2024 Nurse Note* Perioperative Nursing Note - Luz Maria Willis RN - 02/14/2024 12:45 PM EDT PATIENT DIRECTED CALL DR PHELPS OFFICE FOR MEDICATION INSTRUCTIONS FOR DAY OF SURGERY. [facility]07-11-2024 Evaluation + Plan note* Assessment & Plan Note - Eleanor Phelps MD - 02/10/2024 11:37 AM EDTAssociated Problem(s): Cigarette smoker motivated to quit Counseled her on smoking cessation risk factors modification she was she will work on smoking cessation. She is motivated. [facility] [facility]07[facility]11[facility]24 Miscellaneous Notes* Assessment & Plan Note - Eleanor Phelps MD - 02/10/2024 11:37 AM EDTAssociated Problem(s): Cigarette smoker motivated to quit Counseled her on smoking cessation risk factors modification she was she will work on smoking cessation. She is motivated. 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 There [...] intervention. 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 There [...] do left lower extremity angiogram and intervention. [facility]07-11-2024 Evaluation + Plan note* Assessment & Plan Note - Eleanor Phelps MD - 02/10/2024 11:34 AM EDTAssociated Problem(s): Aortic stenosis We will do shockwave intravascular lithotripsy and stenting [facility]07-11-2024 History of Present illness Narrative* Eleanor Phelps MD - 02/10/2024 11:20 AM EDT [...] lower extremity angiogram Left 01/21/2024 Performed by Eleanor Phelps MD at [facility] Social and Family History: [...] (CMS-HCC) - Primary Current Assessment & Plan Left [...] gangrene (CMS-HCC) Cigarette smoker motivated to quit Aortic valve stenosis, etiology of cardiac valve disease unspecified Eleanor Phelps MD, SOLOMON, RPVI, FSVS, FACS [facility] This note was created with the assistance of a speech recognition program. While intending to generate a timely document that accurately reflects the content of the visit, no guarantee can be provided that every grammatical or spelling mistake has been or will be identified or corrected. Thank you for your understanding. documented [facility] Miscellaneous Notes* Telephone Encounter - Sonia Valdivia - 01/24/2024 2:26 PM EDT error documented in [facility]Mer[facility] Telephone encounter Note* Telephone Encounter - Sonia Valdivia - 01/24/2024 2:26 PM EDT error [facility]06-13-2024 Miscellaneous Notes* Telephone Encounter - Tre Bullock - 01/13/2024 11:53 AM EDT Pt calling stating the 3 Rx's prescribed today were not sent into the pharmacy. [place] [phone]. Wellbutrin, Plavix and nicotine patch. * Telephone Encounter - Ximena France LPN - 01/13/2024 11:53 AM EDT Medications have been re ordered documented in [facility]24 Telephone encounter Note* Telephone Encounter - Tre Bullock - 01/13/2024 11:53 AM EDT Pt calling stating the 3 Rx's prescribed today were not sent into the pharmacy. [place] [phone]. Wellbutrin, Plavix and nicotine patch. 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 Left lower extremity angiogram and intervention as soon as possible * Assessment & Plan Note - Eleanor Phelps MD - 01/13/2024 11:22 AM EDT Associated Problem(s): Cigarette smoker motivated to quit So we will prescribe bupropion XL 150 twice daily and nicotine patches documented in [facility]Mer[facility]24 History of Present illness Narrative* Eleanor Phelps MD - 01/13/2024 10:20 AM EDT [...] ischemia of left lower extremity with gangrene ([facility]) Current Assessment & Plan Will prescribe aspirin Plavix and statin. Left lower extremity angiogram and intervention as soon as possible Cari was seen today for peripheral vascular disease and leg pain. 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 - buPROPion XL (WELLBUTRIN XL) 150 mg 24 hr tablet; Take 1 tablet (150 mg total) by mouth in the morning. - nicotine 21-14-7 mg/24 hr patch, TD daily, sequential; Place 14 mg on the skin once for 1 dose. Eleanor Phelps MD, SOLOMON, RPVI, FSVS, FACS [facility] This note was created with the assistance of a speech recognition program. While intending to generate a timely document that accurately reflects the content of the visit, no guarantee can be provided that every grammatical or spelling mistake has been or will be identified or corrected. Thank you for your understanding. 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 Lifestyle [place] your teeth every morning and night with [...] provider. Document Revised: 01/14/2022 Document Reviewed: 01/14/2022 [employer] Patient Education 2022 [employer]. 12/31/2022 16:32:26 Preventing Diabetes Mellitus Complications Preventing [...] lead to tooth loss. To prevent this: [place] your teeth twice a day. Floss at [...] health professional. Where to find more information [place] Diabetes Association: www.diabetes.org Association of Diabetes Care [...] provider. Document Revised: 09/06/2020 Document Reviewed: 09/06/2020 [employer] Patient Education 2022 [employer]. 12/31/2022 16:32:25 Managing Your Hypertension Managing Your [...] more information National Heart, Lung, and Blood [place]: www.nhlbi.nih.gov [place] Heart Association: www.heart.org Contact a health care [...] provider. Document Revised: 04/02/2022 Document Reviewed: 04/02/2022 [employer] Patient Education 2022 [employer]. 12/31/2022 16:32:21 Major Depressive Disorder, Adult Major [...] things, which may include: Your personality traits. [place] or conditioned behaviors or thoughts or feelings [...] your health care provider. General instructions Take ftir-wpa-pcpekyq and prescription medicines only as told by your health care provider. Eat a healthy diet and get plenty of sleep. Consider joining a support group. Your health care provider may be able to recommend one. Keep all follow-up visits as told by your health care provider. This is important. Where to find more information National [place] on Mental Illness: www.diana.org [place] National [place] of Mental Health: www.nimh.nih.gov Contact a health [...] department or: Call your local emergency services (911 in the [place] Call a suicide crisis helpline, such as the National Suicide Prevention Lifeline at or 259 in the [place] This is open 24 hours a day in the [place] Text the Crisis Text Line at 874799 (in the [place] Summary Major depressive disorder [...] provider. Document Revised: 02/11/2022 Document Reviewed: 06/29/2020 [employer] Patient Education 2022 [employer]. 12/31/2022 16:32:20 Hypertension, Adult Hypertension, Adult High [...] follow-up visits. This is important. Medicines Take jsti-sfk-bckpzjf and prescription medicines only as told by [...] provider. Document Revised: 05/26/2022 Document Reviewed: 05/26/2022 [employer] Patient Education 2022 [employer]. 12/31/2022 16:32:19 Heart Disease Prevention Heart Disease [...] of hard liquor (44 mL). Medicines Take qyww-fgk-btmwubt and prescription medicines only as told by [...] Centers for Disease Control and Prevention: www.cdc.gov/heartdisease [place] Heart Association: www.heart.org Summary Heart disease is [...] provider. Document Revised: 03/18/2022 Document Reviewed: 03/18/2022 [employer] Patient Education 2022 [employer]. 12/31/2022 16:32:17 Diabetes Mellitus and Nutrition, Adult [...] Carrots. Green beans. Tomatoes. Peppers. Onions. Cucumbers. Wedron sprouts. Grains Whole grains, such as whole-wheat [...] meet with a certified diabetes care and educational therapist? Do I need to meet with a dietitian? What number can I call if I have questions? When are the best times to check my blood glucose? Where to find more information: [place] Diabetes Association: diabetes.org Academy of Nutrition and Dietetics: eatright.org National [place] of Diabetes and Digestive and Kidney Diseases: [...] provider. Document Revised: 02/19/2021 Document Reviewed: 02/19/2021 [employer] Patient Education 2022 [employer]. 12/31/2022 16:32:16 Diabetes Mellitus and Foot Care Diabetes Mellitus and Foot Care Foot care is an important part of your health, especially when you have diabetes. Diabetes may cause you to have problems because of poor blood flow (circulation) to your feet and legs, which can cause your skin to: Become thinner and vacuum drier tender. Break more easily. Heal more slowly. Peel [...] provider immediately. Where to find more information [place] Diabetes Association: www.diabetes.org Association of Diabetes Care [...] provider. Document Revised: 02/06/2021 Document Reviewed: 02/06/2021 [employer] Patient Education 2022 [employer]. 12/31/2022 16:32:15 Diabetes Mellitus and Exercise Diabetes [...] plan? Your health care provider or certified control systems technician can help you make a plan for [...] (heat stroke). Where to find more information [place] Diabetes Association: www.diabetes.org Summary Exercising regularly is important for overall health, especially for people who have diabetes mellitus. Exercising has many health benefits. It increases muscle strength and bone density and reduces bodyfat and stress. It also lowers and controls blood glucose. Your health care provider or certified control systems technician can help you make an activity plan [...] provider. Document Revised: 04/15/2020 Document Reviewed: 04/15/2020 [employer] Patient Education 2022 [employer]. 12/31/2022 16:32:13 DASH Eating Plan DASH Eating [...] Dairy Whole or 2% milk, cream, and lmwk-nge-znmw. Whole or full-fat cream cheese. Whole-fat or [...] more information National Heart, Lung, and Blood [place]: www.nhlbi.nih.gov [place] Heart Association: www.heart.org Academy of Nutrition and [...] provider. Document Revised: 06/21/2020 Document Reviewed: 06/21/2020 [employer] Patient Education 2022 [employer]. [facility] 03-14-2023 [facility] Evaluation note* Encounter Date Diagnosis Assessment Notes Treatment Notes Treatment Clinical Notes Oct, Fecal incontinence (ICD-10 - R15.9) [facility] Other 03-30-2022 Evaluation note* Encounter Date Diagnosis [...] WAS ON PREDNISONE PROCEED WITH FLEX SIG [facility] Other [place] [id number] Discharge Summary Signed Patient: Cari Hale MR#: [id number] : 1965 Acct:[id number] Age/Sex: 59 / F Adm Date: 5 Loc: 4N Room: 9G9784-[address]: Mac Turner MD Copies to: DO Mac Marie MD~ Providers Date of Discharge: 12/10/24 Discharging Provider: Mac Turner Primary Care Provider: Renate Diallo Consults: 12/08/24 10:45 Consult to Adult Hospitalist Routine Comment: Consulting Provider: Community Hospitalist (Adult) Reason For Exam: Assist with postop medical management Has Provider Been Notified: Yes Date of Notification: 12/08/24 Time of Notification: 14:21 Consult to Pulmonology Routine Comment: Consulting Provider: Shanika Hyman Reason For Exam: Assessment postop chest tube management Has Provider Been Notified: Yes Date of Notification: 12/08/24 Time of Notification: 14:22 Discharge Diagnosis (1) Lung mass: Final Diagnosis Final Discharge Diagnosis: lung mass Summary Hospital Course Hospital course: Pt admitted day of surgery for resection of a suspicious lung mass. Left lung wedge was uneventful.By POD 2 her chest tube was removed and she was discharged to home Condition Condition at Discharge: Stable Status at Discharge Functional status at discharge: independent ambulation Overall status at discharge: patient is back to baseline Time Spent with Patient Time spent providing/coordinating discharge services (# min): 1 Surgeries and Procedures Operation Date: 12/08/24 09:25 Actual Procedures p OR Left Thorascopic Wedge(Left) - Mac Turner MD Discharge Plan Discharge Plan Patient Disposition: Home Activity: Ambulate as Tolerated Comment: No lifting >15 pounds for 3 weeks Diet: Regular Additional Instructions: May resume Plavix Instructions: Know your Meds Prescriptions: Continued insulin aspart U-100 [Novolog U-100 Insulin aspart] 100 unit/mL solution 19 unit subcut DAILY Patient Comments: INJECT 35 UNITS DAILY PER PUMP. DX E11.01 also takes extra with meals and at bedtime based on carb intake per patient Rx Instructions: sliding scale estradiol 2 mg tablet 2 mg PO QPM Patient Comments: TAKE 1 TABLET BY MOUTH AT BEDTIME ergocalciferol (vitamin D2) 1,250 mcg (50,000 unit) capsule 50 mcg PO QWEEK rosuvastatin 5 mg tablet 5 mg PO QAM Patient Comments: TAKE 1 TABLET BY MOUTH EVERY DAY bupropion HCl 150 mg tablet extended release 24 hr 150 mg PO BID clopidogrel 75 mg tablet 75 mg PO DAILY Patient Comments: stopped taking janice 5/2 hydroxyzine HCl 25 mg tablet 25 mg PO QID PRN (Reason: anxiety) lamotrigine 100 mg tablet 100 mg PO QAM budesonide 3 mg capsule,delayed,extend.release 9 mg PO QAM aspirin 81 mg tablet,delayed release (DR/EC) 81 mg PO DAILY levothyroxine 100 mcg capsule 50 mcg PO DAILY Patient Comments: 50 mg 3 days on, 2 days off Follow Up: Mac Turner MD [Active Staff] - (Call office for follow up 3-4 weeks) Exam Physical Exam Vital Signs: Temp Pulse Resp BP Pulse Ox O2 Del Method O2 Flow Rate 98.4 F 108 H 18 125/80 94 L Room Air 1 12/10/24 16:00 12/10/24 19:53 12/10/24 19:53 12/10/24 19:53 12/10/24 19:53 12/10/24 19:53 12/10/24 16:00 Documented By: Mac Turner MD 12/14/24 105 Signed By: 12/14/24 1056 [facility] Mac Turner [facility] Note Date/Time December 14, 2024 10:56 am [facility] [address] [place] [address] Discharge Summary Signed Patient: Cari Hale MR#: [id number] : 1965 Acct:[id number] Age/Sex: 59 / F Adm Date: 5 Loc: Room: [address] [place] [address]: Mac Turner MD Copies to: DO Mac Marie MD~ Providers Date of Discharge: 12/10/24 Discharging Provider: Mac Turner Primary Care Provider: Renate Diallo Consults: 12/08/24 10:45 Consult to Adult Hospitalist Routine Comment: Consulting Provider: Community Hospitalist (Adult) Reason For Exam: Assist with postop medical management Has Provider Been Notified: Yes Date of Notification: 12/08/24 Time of Notification: 14:21 Consult to Pulmonology Routine Comment: Consulting Provider: Shanika Hyman Reason For Exam: Assessment postop chest tube management Has Provider Been Notified: Yes Date of Notification: 12/08/24 Time of Notification: 14:22 Discharge Diagnosis (1) Lung mass: Final Diagnosis Final Discharge Diagnosis: lung mass Summary Hospital Course Hospital course: Pt admitted day of surgery for resection of a suspicious lung mass. Left lung wedge was uneventful. By POD 2 her chest tube was removed and she was discharged to home Condition Condition at Discharge: Stable Status at Discharge Functional status at discharge: independent ambulation Overall status at discharge: patient is back to baseline Time Spent with Patient Time spent providing/coordinating discharge services (# min): 1 Surgeries and Procedures Operation Date: 12/08/24 09:25 Actual Procedures p OR Left Thorascopic Wedge(Left) - Mac Turner MD Discharge Plan Discharge Plan Patient Disposition: Home Activity: Ambulate as Tolerated Comment: No lifting >15 pounds for 3 weeks Diet: Regular Additional Instructions: May resume Plavix Instructions: Know your Meds Prescriptions: Continued insulin aspart U-100 [Novolog U-100 Insulin aspart] 100 unit/mL solution 19 unit subcut DAILY Patient Comments: INJECT 35 UNITS DAILY PER PUMP. DX E11.01 also takes extra with meals and at bedtime based on carb intake per patient Rx Instructions: sliding scale estradiol 2 mg tablet 2 mg PO QPM Patient Comments: TAKE 1 TABLET BY MOUTH AT BEDTIME ergocalciferol (vitamin D2) 1,250 mcg (50,000 unit) capsule 50 mcg PO QWEEK rosuvastatin 5 mg tablet 5 mg PO QAM Patient Comments: TAKE 1 TABLET BY MOUTH EVERY DAY bupropion HCl 150 mg tablet extended release 24 hr 150 mg PO BID clopidogrel 75 mg tablet 75 mg PO DAILY Patient Comments: stopped taking friday 12/01 hydroxyzine HCl 25 mg tablet 25 mg PO QID PRN (Reason: anxiety) lamotrigine 100 mg tablet 100 mg PO QAM budesonide 3 mg capsule,delayed,extend.release 9 mg PO QAM aspirin 81 mg tablet,delayed release (DR/EC) 81 mg PO DAILY levothyroxine 100 mcg capsule 50 mcg PO DAILY Patient Comments: 50 mg 3 days on, 2 days off Follow Up: Mac Turner MD [Active Staff] - (Call office for follow up 3-4 weeks) Exam Physical Exam Vital Signs: Temp Pulse Resp BP Pulse Ox O2 Del Method O2 Flow Rate 98.4 F 108 H 18 125/80 94 L Room Air 1 12/10/24 16:00 12/10/24 19:53 12/10/24 19:53 12/10/24 19:53 12/10/24 19:53 12/10/24 19:53 12/10/24 16:00 Documented By: Mac Turner MD 12/14/24 1053 Signed By: <Electronically signed by Mac Turner MD> 12/14/24 1056 [facility] Work Phone: Evaluation + Plan note Future Appointments Appointment Date:05/27/2022 01:00:00 PM Scheduled Provider: Location:[facility] Appointment Type: Medicare Wellness Subsequent Appointment Date:06/11/2022 03:40:00 PM Scheduled Provider:Renate DIALLO DO Location:[facility] Appointment Type: Open Future Scheduled Tests Laboratory* HgbA1c 05/12/22 * Lab Miscellaneous-LC 05/26/21 * Microalbumin Level Urine 05/12/22 * CBC w/ Auto Diff 05/12/22 * Comprehensive Metabolic Panel 05/12/22 * Estradiol Level 05/12/22 * Lipid Panel 05/12/22 * Progesterone Level 05/12/22 * Thyroid Stimulating Hormone 05/12/22 Radiology* MA Mamm Screen w/CAD if perf and 3D Jace 05/26/21 [facility] Evaluation + Plan note Future Appointments Appointment Date:06/11/2022 03:40:00 PM Scheduled Provider:Renate DIALLO DO Location:[facility] Appointment Type: Open Diagnostic Tests Pending * Estradiol Level [facility]03/22 [facility] Future Appointments Appointment Date:01/03/2024 02:00:00 PM Scheduled Provider: Location:[facility] Appointment Type: Medicare Wellness Subsequent Future Scheduled Tests Radiology* MA Mamm Screen w/CAD if perf and 3D Jace 12/31/22 [facility] Evaluation + Plan note Future Appointments Appointment Date:01/03/2024 02:00:00 PM Scheduled Provider: Location:[facility] Appointment Type: Medicare Wellness Subsequent Future Scheduled Tests Laboratory* CBC w/ Auto Diff 01/04/23 * Comprehensive Metabolic Panel 01/04/23 Radiology* MA Mamm Screen w/CAD if perf and 3D Jace 12/31/22 [facility] noteNo InformationNort EagerPanda Other Evaluation noteNo assessment information available [facility] Work Phone: Evaluation note* Diagnosis Mass of left lung Abnormal CT scan, chest Nonspecific (abnormal) findings on radiological and other examination of other intrathoracic organs documented in this encounter [facility]* Diagnosis Cigarette smoker motivated to quit- Primary PVD (peripheral vascular disease) ([facility]) Unspecified peripheral vascular disease 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* Diagnosis PAD (peripheral artery disease) (CMS-HCC)- Primary Unspecified peripheral vascular disease documented in this encounter 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* Diagnosis Mass of left lung documented in this encounter [facility] HealthEvaluation note* Diagnosis Mass of left lung documented in this encounter [facility]* Diagnosis Pre-operative clearance- Primary Unspecified pre-operative examination Cardiomyopathy, ischemic Other specified forms of chronic ischemic heart disease Mixed hyperlipidemia Coronary artery disease involving squaxin coronary artery of squaxin heart, unspecified whether angina present Mitral valve insufficiency, unspecified etiology Dyspnea on exertion Other dyspnea and respiratory abnormality Hx of myocardial infarction Abnormal EKG Nonspecific abnormal electrocardiogram (ECG) (EKG) Abnormal echocardiogram Nonspecific (abnormal) findings on radiological and other examination of other intrathoracic organs Chest pain, unspecified type Claudication Unspecified peripheral vascular disease Ulcerative colitis with complication, unspecified location (Multi) Depression, unspecified depression type Type 2 diabetes mellitus without complication, with long-term current use of insulin Malignant neoplasm of left lung, unspecified part of lung (Multi) Anxiety Anxiety state, unspecified Acute cataract Snoring Other dyspnea and respiratory abnormality BMI 23.0-23.9, adult Tobacco abuse Tobacco use disorder documented in this encounter [facility] Work Phone: Evaluation note* Diagnosis Neck mass Swelling, mass, or lump in head and neck documented in this encounter [facility] HealthcareEvaluation note* Diagnosis Neck mass- Primary Swelling, mass, or lump in head and neck documented in this encounter [facility] HealthcareEvaluation note* Diagnosis Cigarette smoker motivated to quit- Primary PVD (peripheral vascular disease) Unspecified peripheral vascular disease 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 SystemEvaluation note* Diagnosis Pre-operative clearance Unspecified pre-operative examination Cardiomyopathy, ischemic Other specified forms of chronic ischemic heart disease Type 1 diabetes mellitus without complication Type I (juvenile type) diabetes mellitus without mention of complication, not stated as uncontrolled Hx of myocardial infarction Dyspnea on exertion Other dyspnea and respiratory abnormality Mixed hyperlipidemia Coronary artery disease involving squaxin coronary artery of squaxin heart, unspecified whether angina present Mitral valve insufficiency, unspecified etiology Abnormal echocardiogram Nonspecific (abnormal) findings on radiological and other examination of other intrathoracic organs Snoring Other dyspnea and respiratory abnormality Depression, unspecified depression type Anxiety Anxiety state, unspecified Tobacco abuse Tobacco use disorder BMI 24.0-24.9, adult Hypothyroidism, unspecified type documented in this encounter [facility] Work Phone: History and physical note Author Geovanny Schaffer [facility] October 13, 2022 2:16pm Note Date/Time October 13, 2022 2:1 6pm [facility] [address] [place] [address] Gastroenterology H&P Signed Patient: Cari Hale MR#: [id number] : 1965 Acct:[id number] Age/Sex: 57 / F Adm Date: 3 Loc: Room: Type: [facility] Attending Dr: Geovanny Schaffer MD Copies to: MD Renate Smiht DO~ Date of Service: 10/13/2022 HISTORY & PHYSICAL: [...] signed by Geovanny Schaffer MD> 10/13/22 1416 [facility] Work Phone: Hospital course Narrative No data available for this section [facility] Discharge instructions No data available for this section [facility] Discharge instructions Additional Instructions DISCHARGE [...] problems. -Follow up with PCP. -Office number [phone].[facility] Work Phone: Hospital Discharge instructions Additional Instructions May resume [facility] Work Phone: Hospital Discharge instructionsAmbulatory Orders* Oncology Histology Time Frame: 1 Day, Location: Determined By Patient [facility] Work Phone: InstructionsNot on filedocumented in this encounter [facility] [...] Health SystemInstructionsNot on filedocumented in this encounter [facility] SystemProgress note No data available for this section [facility] [place] Progress note Author Genie Bass [facility] Note Date/Time March 15, 2025 10 :10am [facility] [place] [address] Cancer Center Note Signed with Addenda Patient: Cari Hale MR#: [id number] : 1965 Acct:[id number] Age/Sex: 60 / F Type: REG AMB Date of Service: 03/15/25 Copies to: DO Mac Marie MD~ ADDENDUM1 12/08/24 Surgical path from [facility] came back as follow: TUMOR CASE SUMMARY Procedure: Wedge resection Laterality: Left Tumor Focality: Single focus Tumor Site: Upper lobe Tumor Size: 2.2 x2 x 1.8 cm Histologic Type: Invasive adenocarcinoma, predominantly micropapillary adenocarcinoma. Histologic Patterns: Not applicable Histologic Grade: G2-G3, moderately to poorly differentiated (see note) Spread Through Air Spaces: Present Visceral Pleura Invasion: Present Direct Invasion of Adjacent Structures: Not identified Treatment Effect: No known presurgical therapy Lymphovascular Invasion: Present Margin Status for Invasive Carcinoma: Pleural margin involved by tumor Margin Status for Non-Invasive Tumor: Hemorrhage Regional Lymph Node Status: Tumor present in regional lymph node - Number of Lymph Nodes with Tumor: 2 - Exact number: 6 - Jennifer Sites with Tumor: Level 7 and intrapulmonary lymph node - Extranodal Extension: Focally present in level 7 lymph node - Size of Largest Metastatic Deposit: 3 mm Distant Site(s) Involved: Not applicable Pathology Stage Classification (pTNM, AJCC 8th Edition) pT1c: Tumor greater than 2 cm but less than or equal to 3 cm in greatest dimension pN2a: Tumor involvement of a single ipsilateral mediastinal jennifer station or of the subcarinal jennifer station pM: Not applicable NCCN states if it involves the visceral pleral then it is T2. Stage is stage IIIA (T2N2 Mx). which requires systemic chemotherapy, pending Rad Onc evaluation. Addendum Dictated By: Genie Bass MD Addendum Signed By: 03/15/251009 Addendum Cosigned By: DD/ TD/TT: 03/15/25 Assessment & Plan A/P (1) Non-small cell lung cancer: Plan Please see the HPI for details. I informed the patient that at this point she is beyond 90 days after surgery for the recommended adjuvant chemo and radiation for her not completely staged left upper lung adenocarcinoma. Patient stated that she had PET CT scan in [place] before the surgery which we do not have the report of. No other scans ofthe body or since July 2024 and no brain images were done as well. She stated that she had a CT of the neck back on 11/01/2024 which revealed right maxillary sinusitis no mass or lymphadenopathy noted in the neck. Plan: We need to obtain surgical path from [facility] pathology for staging. We also need to repeat the PET CT scan for restaging at this point since it has been more than 90 days since her surgery. Will need to obtain the PET CT scan results from [place] or [place] from prior to surgery. Also will do MRI of the brain with and without contrast for initial brain imaging evaluation. Will send surgical path for NGS studies. She is going to see radiation oncology for initial consultation today as well. See her back in 2 weeks for results. Orders: Orders PET tumor init tx strat sb-mt 1 Day C34.90 - Malignant neoplasm of unspecified part of unspecified bronchus or lung, Z01.89 - Encounter for other specified special examinations Complete Blood Count Auto Diff 1 Day C34.90 - Malignant neoplasm of unspecifiedpart of unspecified bronchus or lung MR head/brain wo/w con 1 Day C34.90 - Malignant neoplasm of unspecified part ofunspecified bronchus or lung Comprehensive Metabolic Panel 1 Day C34.90 - Malignant neoplasm of unspecified part of unspecified bronchus or lung Medications: New lorazepam (Ativan) take 45-60 minutes prior to MRI 1 mg PO ONCE PRN 1 tab 0RF anxiety 1 day C34.90 - Malignant neoplasm of unspecified part of unspecified bronchus or lung Patient Instructions: PET CT MRI brain w/wo contrast NGS of lung mass F/u same day as RadOnc after scans cbc, cmp prior to scans CHEMO PLAN No Active Chemotherapy History of Present Illness HPI Cari is a 60-year-old female with history of hypertension, hyperlipidemia, hypothyroidism status post partial thyroidectomy, anxiety and panic attack, depression, aortic coarctation stents, migraine, diabetes, vitamin D deficiency,ulcerative colitis and poor probably skin and no other medical comorbidities wasreferred over the medical oncology office by Dr. Turner from thoracic surgery service for consideration of adjuvant chemotherapy and adjuvant radiation for her lung adenocarcinoma. Patient had low-dose CT for lung cancer screening on 07/18/2024 which revealed 2.5 x 1.5 x 2.0 cm geographic shaped mass within the lingula with minimal emphysematous changes. No pleural effusion or pleural masses or pneumothorax and no mass or pathologic lymphadenopathy noted in the mediastinum or the hilar areas on the scans. She had PET CT at [place] or [place] per patient prior to surgery but the report is not available to me. Patient underwent resection of the suspicious lung mass using left upper lobe lung wedge resection with mediastinal lymph node dissection on 12/08/2024. The surgery went uneventful except for few days of chest tubes before he was removed. Surgical path revealed poorly differentiated invasive adenocarcinoma with spreadto the subcarinal lymph node as follow: A, left upper lobe of lung, wedge resection - Invasive poorly differentiated adenocarcinoma (see comment) - Metastatic carcinoma in 1 intrapulmonary lymph node B, lymph node, level 7, resection - Metastatic carcinoma in lymph node tissue C, lymph node, level 5, resection - Rare atypical cells ?Diagnosis comment the mass is predominantly micropapillary adenocarcinoma. Thetumor involves the pleura. Lymphovascular invasion is present. On 03/15/2025 she came in for initial consult to medical oncology for consideration for adjuvant chemotherapy and was referred also to radiation oncology for consideration of adjuvant radiation for her resected with wedge resection of left upper lung adenocarcinoma. Patient denies any headache or dizziness or visual changes or neurological deficits and denied any chest pain or shortness of breath or cough or hemoptysisdenied any abdominal pain or bone pain. No weight loss since the surgery. Patient had only may be few pounds weight loss before the surgery. Rest of the 14 point systems were reviewed and are negative. Intake Vitals/Pain Assessment 03/15/25 09:01 Height 5 ft 1.5 in Weight 61.689 kg BMI 25.2 Body Fat % 38.70 BP 144/81 H Blood Pressure Location Rt brachial Position Sitting Temp 97.6 F Pulse 91 Pulse Source NIBP Respiration 20 Pulse Oximetry (%) 98 Oxygen Delivery Method room air Are you having pain? No Intake Visit Reasons: NEW - Lung Mass Allergies atorvastatin (From Lipitor) Allergy (Unknown, Verified 03/15/25 09:01) Unknown Reaction muscle pain Penicillins Allergy (Verified 03/15/25 09:01) Swelling of Lip/Tongue/Throat Home Medications - Last Reconciled 03/15/25 by BELLA Jacinto aspirin 81 mg PO DAILY budesonide DR-ER 9 mg (3 x 3 mg) PO QAM 30 days bupropion HCl XL 150 mg PO BID clopidogrel 75 mg PO DAILY ergocalciferol (vitamin D2) 50 mcg PO QWEEK estradiol 2 mg PO QPM hydroxyzine HCl 25 mg PO QID PRN insulin aspart U-100 (Novolog U-100 Insulin aspart) 19 units subcut DAILY lamotrigine 100 mg PO QAM levothyroxine 50 mcg PO DAILY rosuvastatin 5 mg PO QAM Gastrointestinal Is the patient taking opioids for pain control?: No Bowel Protocol for Opioids Given: No Bowel Pattern: Regular Bowel Movement Aid(s): None Falls Fall Precaution Measures Taken: Patient in chair Nurse's Note: Pateint is referred by Dr Turner for lung cancer. Had surgery 12/08/2024. [facility] Medical History Medical History (Updated 03/14/25 @ 15:32 by Noble Tipton MD) Non-small cell lung cancer Mass of left lung Colitis Smoker Claustrophobia History of panic attacks Depression Anxiety Adenocarcinoma Lung mass Tremor Migraine Cataracts, bilateral Hypercholesteremia Ulcerative colitis Diabetes Surgical History Surgical History (Updated 03/15/25 @ 09:08 by BELLA Jacinto) Status post right cataract extraction 03/13/2025 History of lung biopsy Status post aortic coarctation stent placement I have a stent in my Aorta S/P right and left heart catheterization angioplasty History of carpal tunnel surgery bilateral hands Previous back surgery x2 H/O partial thyroidectomy Family History Family History Mother Diabetes Grandparent Diabetes Sister Diabetes Brother Legacy FamHx Relation: Brother(s) Father Mother No problems noted. Social History Social History Smoking status: Current every day smoker What tobacco products do you use: cigarettes Packs per day: 1 Within the past year, how often did you have a drink containing alcohol: 4 or more times a week Alcohol type details: nightly before bed 2-3 glasses (as of 03/15/2025) Within the past year, how many standard drinks containing alcohol did you have on a typical day: 3 or 4 In the past 12 months, have you used illegal drugs or prescription drugs for non-medical reasons?: No Review of Systems ROS Details: All systems reviewed & no additional complaints except as documented General: Patient denied fevers, chills, rigors, weight loss or loss of appetite. Head: Patient denied any headaches or vision changes Thoracic: Patient denied any shortness of breath or cough or hemoptysis Cardiovascular patient denies any chest pain or leg edema GI: Patient denies any nausea vomiting rectal bleed diarrhea : Patient denied gross hematuria. Hematology: Patient denied any bleeding from any source. No easy bruising. Lymphatic: No enlarged LAP anywhere. Skin: Normal skin exam no rashes or suspicious lesions. Neurological patient denies any headache or dizziness or focal weakness or sensory changes. Physical Exam EXAM HEENT normocephalic atraumatic pupils are equal and round Neck supple without thyromegaly or any cervical lymphadenopathy. Chest clear to auscultation bilaterally without wheezing crackles or rhonchi Heart regular rate and rhythm S1-S2 without murmurs gallop or rub Abdomen soft nontender not distended without hepatosplenomegaly or masses clinically Extremities no edema of the lower extremities Skin without any suspicious rashes Lymphatic system no lymphadenopathy in the cervical area axillary areas bilaterally Neurological exam patient is cooperative alert and oriented x3 no focal deficits. Social Determinants of Health Screening SDOH last assessed in clinic: 03/15/25 Will the patient participate in the screening?: Yes Do you worry about having a steady place to live?: No In the past 12 months, have you had to go without electric, gas, oil, or water in your home?: No Have you or anyone in your house had to go without enough food to eat?: No Has lack of reliable transportation kept you from medical appointments or from doing things needed for daily living?: No Has anyone in your support network made you feel unsafe for any reason?: No Does the patient want assistance with any of the above?: No Dictated By: Genie Bass MD DD/ 0853 Signed By: <Electronically signed by Genie Bass MD> 03/15/25 0952 [facility] Work Phone: reason for referral (narrative)No reason for referral information available[facility] Work Phone: reason for visit Narrative* Imaging (Routine) - Closed Specialty Diagnoses / Procedures Referred By Contac t Referred To Contact Radiology Diagnoses Mass of left lung Procedures CT NEEDLE BIOPSY LUNG PERCUTANEOUS Cole Dumont PA-C [address] [facility] [address] [place] [address] Phone: tel: fax: Referral ID Status Reason Start Date Expiration Date Visits Re quested Visits Authorized [id number] Closed 09/13/2024 09/13/2025 [address] [facility] Assessments No Assessments Information Available Summary Purpose Family History No Family History Records Found Relationship Condition Age at Onset Recorded Date/T anabel Not Specified Diabetes mellitus Unknown grandparent Diabetes mellitus Unknown sister Diabetes mellitus Unknown Relationship Condition Age at Onset Recorded Date/T anabel mother Diabetes mellitus Unknown grandparent Diabetes mellitus Unknown sister Diabetes mellitus Unknown brother Unknown father Unknown mother Unknown Relationship Condition Age at Onset Recorded Date/T anabel mother Diabetes mellitus Unknown Unknown grandparent Diabetes mellitus Unknown sister Diabetes mellitus Unknown brother Unknown father Unknown Advance Directives No Advanced Directives Records Found Advance Directive Response Recorded Date/ Time Advance Directives No June 2:41pm Advance Directive Response Recorded Date/ Time Advance Directives Yes January 15 2:05pm Chief Complaint and Reason for Visit Chief Complaint Diarrhea, Abdominal Pain, Fecal Incontinence Chief Complaint Admit Date R92.8 November 16, 2024 9:3 4am Chief Complaint Admit Date R92.8 November 16, 2024 9:3 4am pre op clearance I25.5 I25.10 I34.0 R06. 09 R07.9 November 17, 2024 8:05am Chief Complaint Admit Date R92.8 November 16, 2024 9:3 4am pre op clearance I25.5 I25.10 I34.0 R06. 09 R07.9 November 17, 2024 8:05am lung mass December 05, 2024 4:06pm Chief Complaint Admit Date R92.8 November 16, 2024 9:3 4am pre op clearance I25.5 I25.10 I34.0 R06. 09 R07.9 November 17, 2024 8:05am lung mass December 05, 2024 4:06pm lung mass December 08, 2024 7:01am lung mass December 08, 2024 4:22pm Reason for Visit Admit Date Lung mass December 08, 2024 7:01am Chief Complaint Admit Date 1 year follow up January 15, 2025 2:06 pm NEW - Lung Mass March 15, 2025 8: 51am Lung Mass March 15, 2025 8: 52am New Patient, Med Onc/Rad Onc, Lung Cance r March 15, 2025 9:38am Reason for Visit Admit Date Colitis January 15, 2025 2:06 pm Mass of left lung January 15, 2025 2:06 pm Non-small cell lung cancer March 15, 2025 8:51am Non-small cell lung cancer March 15, 2025 9:38am Reason for Referral Specialty Diagnoses / Procedures Referred By Floyd t Referred To Contact Diagnoses 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 (CMS-HCC) Cigarette smoker motivated to quit Stenosis of aorta Procedures Vas aorta/iliac duplex complete Eleanor Phelps MD [address], [address] [address] Referral ID Status Reason Start Date Expiration Date V isits Requested Visits Authorized [id number] Pending Review 03/16/2024 03/16/2025 1 1 Specialty Diagnoses / Procedures Referred By Contfaraz t Referred To Contact Radiology Diagnoses Mass of left lung Abnormal CT scan, chest Procedures PET CT SKULL BASE TO MID THIGH Renate Diallo DO [address] [place] [address] Referral ID Status Reason Start Date Expiration Date Visits Re quested Visits Authorized [id number] Closed 08/08/2024 09/13/2024 1 1 Additional Source Comments INFORMATION SOURCE (unrecogn ized section and content) DATE CREATED AUTHOR 01/19/2022 [facility] DATE CREATED AUTHOR AUTHOR'S ORGANIZ ATION 03/23/2024 [facility] DATE CREATED AUTHOR AUTHOR'S ORGANIZ ATION 06/14/2024 [facility] DATE CREATED AUTHOR AUTHOR'S ORGANIZ ATION 10/14/2024 [facility] DATE CREATED AUTHOR AUTHOR'S ORGANIZ ATION 11/06/2024 [facility] EPIC DATE CREATED AUTHOR AUTHOR'S ORGANIZ ATION 11/25/2024 [facility] Ambulatory DATE CREATED AUTHOR AUTHOR'S ORGANIZ ATION 12/21/2024 [facility] DATE CREATED AUTHOR AUTHOR'S ORGANIZ ATION 01/16/2025 [facility] DATE CREATED AUTHOR AUTHOR'S ORGANIZ ATION 03/27/2025 [facility] REASON FOR VISIT (unrecogniz ed section and content) Specialty Diagnoses / Procedures Referred By Contac t Referred To Contact Radiology Diagnoses Mass of left lung Abnormal CT scan, chest Procedures PET CT SKULL BASE TO MID THIGH Renate Diallo, [address] [place] [address] Referral ID Status Reason Start Date Expiration Date Visits Re quested Visits Authorized [id number] Closed 08/08/2024 09/13/2024 1 1 Reason Comments Peripheral Vascular Disease New Referral from Zoila Sanchez for Dr. Phelps for PVD (peripheral vascular disease) records requested Leg Pain Specialty Diagnoses / Procedures Referred By Contac t Referred To Contact Vascular Surgery Diagnoses PVD (peripheral vascular disease) ([facility]) Zoila Sanchez PA-C [address] [place] [address] [address], [place] [address] [facility] [address] [place] [address] Referral ID Status Reason Start Date Expiration Date Visits Requested Visits Authorized [id number] Pending Review Specialty Services Required 01/03/2024 01/02/2025 1 1 Reason Onset Date Comments Med Refill 01/13/2024 Reason Onset Date Comments Med Refill 02/23/2024 Reason Onset Date Comments Med Refill 02/24/2024 Reason Comments P/O ANGIO Critical limb ischemia of left lower ext remity with gangren Reason Comments Med Change Request Reason Comments New Patient Visit Coronary artery calc ification Specialty Diagnoses / Procedures Referred By Contac t Referred To Contact Diagnoses Pre-operative clearance Procedures ECG 12 Lead Katarzyna Castro MD [address] [address] Phone: tel: fax: Referral ID Status Reason Start Date Expiration Date V isits Requested Visits Authorized [id number] Authorized 10/26/2024 10/26/2025 1 1 Reason Comments Neck Mass New Patient : Left n adele mass Reason Comments Neck Mass CT results Reason Comments aortia stenosis to go over t esting completed in [place] a Doing well no complaints pain Reason Comments Follow-up 1 month Follow up fo r Coronary Artery Disease, discuss test results Specialty Diagnoses / Procedures Referred By Contac t Referred To Contact Cardiology Diagnoses Cardiomyopathy, ischemic Procedures Follow Up In Cardiology Katarzyna Castro MD [address] [address] Phone: tel: fax: Katarzyna Castro MD [address] [address] Phone: tel: fax: Referral ID Status Reason Start Date Expiration Date V isits Requested Visits Authorized [id number] Authorized 10/26/2024 10/26/2025 1 1 Patient Care team informatio n (unrecognized section and content) Team Status: Active Member Role Status Dates Renate Diallo DO Primary Care Provider Active Team Status: Inactive Member Role Status Dates Renate Diallo DO Primary Care Provider Active Geovanny Schaffer MD Attending Provider Active [employer] Card Collection Clerk Relationship Specialty Start Date End Date Renate Diallo DO [address] [place] [address] PCP - General 11/15/12 [employer] Credit Card Collection Clerk Relationship Specialty Start Date End Date José MiguelFlora cedillo L, [employer] [address] [place] [id number] PCP - General Nurse Practitioner 02/14/24 [employer] Credit Card Collection Clerk Relationship Specialty Start Date End Date José MiguelFlora cedillo L, [employer] SALES AGENT [address] [place], [place] [id number] PCP - General Nurse Practitioner 02/14/24 Bank Credit Card Collection Clerk Relationship Specialty Start Date End Date José MiguelFlora cedillo L, RAPID OUTSOLE STITCHER-PARTY PLAN SALES AGENT [address] [place], [place] [id number] PCP - General Nurse Practitioner 02/14/24 Bank Credit Card Collection Clerk Relationship Specialty Start Date End Date José MiguelFlora cedillo L, RAPID OUTSOLE STITCHER-PARTY PLAN SALES AGENT [address] [place], [place] [id number] PCP - General Nurse Practitioner 02/14/24 Bank Credit Card Collection Clerk Relationship Specialty Start Date End Date José MiguelFlora cedillo, RAPID OUTSOLE STITCHER-PARTY PLAN SALES AGENT [address] [place], [place] [id number] PCP - General Nurse Practitioner 02/14/24 Bank Credit Card Collection Clerk Relationship Specialty Start Date End Date José MiguelFlora cedillo, RAPID OUTSOLE STITCHER-PARTY PLAN SALES AGENT [address] [place] [id number] PCP - General Nurse Practitioner 02/14/24 Bank Credit Card Collection Clerk Relationship Specialty Start Date End Date José MiguelFlora cedillo L, RAPID OUTSOLE STITCHER-PARTY PLAN SALES AGENT [address] [place] [id number] PCP - General Nurse Practitioner 02/14/24 Bank Credit Card Collection Clerk Relationship Specialty Start Date End Date Renate Diallo DO [address] [place] [address] PCP - General 11/15/12 Bank Credit Card Collection Clerk Relationship Specialty Start Date End Date Renate Diallo DO [address] [place] [address] PCP - General 11/15/12 Bank Credit Card Collection Clerk Relationship Specialty Start Date End Date Renate Diallo DO [address] [place] [address] PCP - General 11/15/12 Bank Credit Card Collection Clerk Relationship Specialty Start Date End Date Renate Diallo DO [address] [place] [address] PCP - General Family Medicine 10/26/24 Bank Credit Card Collection Clerk Relationship Specialty Start Date End Date Renate Diallo MD [address] [place] [address] PCP - General Metal Engraver 10/30/24 Bank Credit Card Collection Clerk Relationship Specialty Start Date End Date Renate Diallo MD [address] [place] [address] PCP - General Metal Engraver 10/30/24 Bank Credit Card Collection Clerk Relationship Specialty Start Date End Date Renate Diallo MD [address] [place] [address] PCP - General Metal Engraver 10/30/24 Mac Turner MD [facility] [address] [place] [address] Referring Physician Thoracic Surgery 11/01/24 Lissa Malone DO [address] [place] [address] Otolaryngology 11/01/24 Bank Credit Card Collection Clerk Relationship Specialty Start Date End Date Flora Escalera, RAPID OUTSOLE STITCHER-PARTY PLAN SALES AGENT [address] [place] [address] PCP - General Nurse Practitioner 02/14/24 Bank Credit Card Collection Clerk Relationship Specialty Start Date End Date Flora Escalera, RAPID OUTSOLE STITCHER-PARTY PLAN SALES AGENT [address] [place] [address] PCP - General Nurse Practitioner 02/14/24 Bank Credit Card Collection Clerk Relationship Specialty Start Date End Date Renate Diallo DO [address] [place] [address] PCP - General Family Medicine 10/26/24 Team Status: Inactive Member Role Status Dates Renate Diallo DO Primary Care Provid er, Attending Provider Active Start: November 16, 2024 End: November 16, 2024 Katarzyna Castro MD Other Provider Active S tart: November 16, 2024 End: November 16, 2024 Team Status: Inactive Member Role Status Dates Renate Diallo DO Primary Care Provider Active Start: November 17, 2024 End: November 17, 2024 Katarzyna Castro MD Attending Provider Active Start: November 17, 2024 End: November 17, 2024 Janeth Plascencia DO Referring Provider Active S tart: November 17, 2024 End: November 17, 2024 Team Status: Inactive Member Role Status Dates Renate Diallo DO Primary Care Provider Active Start: December 05, 2024 End: December 05, 2024 Mac Turner MD Attending Provider Active Start : December 05, 2024 End: December 05, 2024 Team Status: Inactive Member Role Status Dates Renate Diallo DO Primary Care Provider Active Start: December 08, 2024 End: December 10, 2024 Mac Turner MD Admit Provider, Atte nding Provider Active Start: December 08, 2024 End: December 10, 2024 Lety Lucas RN Other Provider Active Star t: December 08, 2024 End: December 10, 2024 Марина Hodge RN Other Provider Active Start : December 08, 2024 End: December 10, 2024 Mary You , CHRISTOPHER Other Provider Active Star t: December 08, 2024 End: December 10, 2024 Renetta Lyon RN Other Provider Active Start: M ay 2024 End: December 10, 2024 Arleen Rader RN Other Provider Active Start: Katie shahid 2024 End: December 10, 2024 Rosanna Petit RN Other Provider Active Start: M ay 2024 End: December 10, 2024 Ant Han MD Other Provider Active Start: December 08, 2024 End: December 10, 2024 Nolberto Stone DO Other Provider Active Start : December 08, 2024 End: December 10, 2024 Matthew Hope MD Other Provider Active Start : December 08, 2024 End: December 10, 2024 Scot Centeno DO Other Provider Active Start: December 08, 2024 End: December 10, 2024 Hugh Mendoza MD Other Provider Active Start: December 08, 2024 End: December 10, 2024 Bri Maravilla MD Other Provider Active Start : December 08, 2024 End: December 10, 2024 Ag Hoang DO Other Provider Active St art: December 08, 2024 End: December 10, 2024 Alcon Martino MD Other Provider Active Start: M ay 2024 End: December 10, 2024 Sophy Coughlin APRN Other Provider Active Start: December 08, 2024 End: December 10, 2024 Jackie Mansfield MD Other Provider Active Start: December 08, 2024 End: December 10, 2024 Marcell Andrade MD Other Provider Active Start: M ay 2024 End: December 10, 2024 Rekha Pagan MD Other Provider Active Start: December 08, 2024 End: December 10, 2024 Georgie Burden MD Other Provider Active Start: December 08, 2024 End: December 10, 2024 gA More DO Other Provider Active Start: December 08, 2024 End: December 10, 2024 Jessica Mckay MD Other Provider Active Start: Katie shahid 2024 End: December 10, 2024 Joe Hutchison MD Other Provider Active Start: December 08, 2024 End: December 10, 2024 THOMAS You Other Provider Active St art: December 08, 2024 End: December 10, 2024 Olivier Knapp APRN Other Provider Active Star t: December 08, 2024 End: December 10, 2024 Sean Hart MD Other Provider Active Start: December 08, 2024 End: December 10, 2024 Chun Julio MD Other Provider Active Start: Ma y 2024 End: December 10, 2024 Marty Smith MD Other Provider Active Start: December 08, 2024 End: December 10, 2024 Tevin Call MD Other Provider Active Star t: December 08, 2024 End: December 10, 2024 Olu Smith MD Other Provider Active Start: Margarita ay 2024 End: December 10, 2024 Sherrell Tejeda DO Other Provider Active Start: Katie y 2024 End: December 10, 2024 Wolf Zambrano DO Other Provider Active Start : December 08, 2024 End: December 10, 2024 Aida Schmidt APRN Other Provider Active Start: December 08, 2024 End: December 10, 2024 Luis Beaver , Other Provider Active Start: December 08, 2024 End: December 10, 2024 Mikey Seay MD Other Provider Active Sta rt: December 08, 2024 End: December 10, 2024 Eli Richard APRN Other Provider Active Start : December 08, 2024 End: December 10, 2024 Arti East APRN Other Provider Active St art: December 08, 2024 End: December 10, 2024 Kusum Sanders MD Other Provider Active Start: M ay 2024 End: December 10, 2024 Dulce Maria Rivera MD Other Provider Active S tart: December 08, 2024 End: December 10, 2024 Cong Hsu , Other Provider Active Star t: December 08, 2024 End: December 10, 2024 Shruthi Grace DO Other Provider Active Start: December 08, 2024 End: December 10, 2024 Maicol Smith MD Other Provider Active Start: December 08, 2024 End: December 10, 2024 Raisa Back MD Other Provider Active Start: December 08, 2024 End: December 10, 2024 Kimberly Samson APRN Other Provider Active Star t: December 08, 2024 End: December 10, 2024 Daly Gonsales MD Other Provider Active Start: M ay 2024 End: December 10, 2024 Issac Hubbard MD Other Provider Active Start: Ma y 2024 End: December 10, 2024 Ozzy Perez MD Other Provider Active Start: December 08, 2024 End: December 10, 2024 Alcon Bazan MD Other Provider Active Start : December 08, 2024 End: December 10, 2024 Shilo Kiser MD Other Provider Active Start: [facility] 2024 End: December 10, 2024 Fallon Kim APRN Other Provider Active Sta rt: December 08, 2024 End: December 10, 2024 Edward Garcia APRN Other Provider Active Start: December 08, 2024 End: December 10, 2024 Yovana Pablo RN Other Provider Active Start: [facility] 2024 End: December 10, 2024 Shanika Hyman MD Other Provider Active Start: [facility] 2024 End: December 10, 2024 Team Status: Active Member Role Status Dates Renate Diallo DO Primary Care Provider Active Start: December 08, 2024 Mac Turner MD Admit Provider, Othe r Provider Active Start: December 08, 2024 Lety Lucas RN Other Provider Active Star t: December 08, 2024 Марина Hodge RN Other Provider Active Start : December 08, 2024 Mary You RN Other Provider Active Star t: December 08, 2024 Renetta Lyon RN Other Provider Active Start: M ay 2024 Arleen Rader RN Other Provider Active Start: Katie y 2024 Rosanna Petit RN Other Provider Active Start: M ay 2024 Ant Han MD Other Provider Active Start: December 08, 2024 Nolberto Stone , Other Provider Active Start : December 08, 2024 Matthew Hope MD Other Provider Active Start : December 08, 2024 Scot Centeno , Other Provider Active Start: December 08, 2024 Hugh Mendoza MD Other Provider Active Start: December 08, 2024 Bri Maravilla MD Other Provider Active Start : December 08, 2024 Ag Hoang DO Other Provider Active St art: December 08, 2024 Alcon Martino MD Other Provider Active Start: ay 2024 Sophy Coughlin APRN Other Provider Active Start: December 08, 2024 Jackie Mansfield MD Other Provider Active Start: December 08, 2024 Marcell Andrade MD Other Provider Active Start: ay 2024 Rekha Pagan MD Other Provider Active Start: December 08, 2024 Georgie Burden MD Other Provider Active Start: December 08, 2024 Ag More DO Other Provider Active Start: December 08, 2024 Jessica Mckay MD Other Provider Active Start: Ma y 2024 Joe Hutchison MD Other Provider Active Start: December 08, 2024 Kiarra Anderson [employer] Other Provider Active St art: December 08, 2024 Olivier Knapp APRN Other Provider Active Star t: December 08, 2024 Sean Hart MD Other Provider Active Start: December 08, 2024 Chun Julio MD Other Provider Active Start: Ma y 2024 Marty Smith MD Other Provider Active Start: December 08, 2024 Tevin Call MD Other Provider Active Star t: December 08, 2024 Olu Smith MD Other Provider Active Start: M ay 2024 Sherrell Tejeda DO Other Provider Active Start: Ma y 2024 Wolf Zambrano , Other Provider Active Start : December 08, 2024 Aida Schmidt APRN Other Provider Active Start: December 08, 2024 Luis Beaver , Other Provider Active Start: December 08, 2024 Mikey Seay MD Other Provider Active Sta rt: December 08, 2024 Eli Richard APRN Other Provider Active Start : December 08, 2024 Arti East APRN Other Provider Active St art: December 08, 2024 Kusum Sanders MD Other Provider Active Start: ay 2024 Dulce Maria Rivera MD Other Provider Active S tart: December 08, 2024 Cong Hsu , DO Other Provider Active Star t: December 08, 2024 Shruthi Grace , DO Other Provider Active Start: December 08, 2024 Maicol Smith MD Other Provider Active Start: December 08, 2024 Raisa Back MD Other Provider Active Start: December 08, 2024 Kimberly Samson APRN Other Provider Active Star t: December 08, 2024 Daly Gonsales MD Other Provider Active Start: 2024 Issac Hubbard MD Other Provider Active Start: Ia y 2024 Ozzy Perez MD Other Provider Active Start: December 08, 2024 Alcon Bazan MD Other Provider Active Start : December 08, 2024 Shilo Kiser MD Other Provider Active Start: 2024 Fallon Kim APRN Other Provider Active Sta rt: December 08, 2024 Edward Garcia APRN Other Provider Active Start: December 08, 2024 Yovana Pablo RN Other Provider Active Start: ay 2024 Shanika Hyman MD Attending Provider, Other Provider Active Start: December 08, 2024 Bank Credit Card Collection Clerk Relationship Specialty Start Date End Date Renate Diallo MD [facility] [place] [address] PCP - General Metal Engraver 10/30/24 Mac Turner MD [address] [place] [address] [address] [place] [address] Referring Physician Thoracic Surgery 11/01/24 Lissa Malone, [address] [place] [address] Otolaryngology 11/01/24 Team Status: Inactive Member Role Status Dates Renate Diallo DO Primary Care Provider Active Start: January 15, 2025 End: January 15, 2025 Oren Jones APRN Attending Provider Active Start: January 15, 2025 End: January 15, 2025 Team Status: Active Member Role Status Dates Renate Diallo DO Primary Care Provider Active Start: March 15, 2025 Genie Bass MD Attending Provider Active Start: March 15, 2025 Mac Turner MD Referring Provider Active Start : March 15, 2025 Team Status: Inactive Member Role Status Dates Renate Diallo DO Primary Care Provider Active Start: March 15, 2025 End: March 15, 2025 Noble Tipton MD Attending Provider Active Start: March 15, 2025 End: March 15, 2025 Mac Turner MD Referring Provider Active Start : March 15, 2025 End: March 15, 2025 Team Status: Inactive Member Role Status Dates Renate Diallo DO Primary Care Provider Active Start: March 15, 2025 End: March 15, 2025 Genie Bass MD Attending Provider Active Start: March 15, 2025 End: March 15, 2025 Mac Turner MD Referring Provider Active Start : March 15, 2025 End: March 15, 2025 Goals (unrecognized section and content) Goals may be documented in a n alternate section FOR RECORDS PERTAINING TO PATIENTS WHO ARE [...] BE BASED ON THE PRIMARY CLINICAL RECORDS. [facility] provides no warranty or guarantee of the accuracy or completeness of information in this document.
== END 2025-03-27 13:07 | disposition home or self-care (01) ==
LOC: CARD 13:06
PROVIDERS: PCP Family Medicine
DX: C34.90 Malignant neoplasm of unspecified part of unspecified bronchus or lung (principal)
CPT/HCPCS: 36415; 85018

== ENCOUNTER 2025-04-10 15:03 | Outpatient (OUT) | payer OTHER, SELFPAY ==
--- OUTSIDE RECORDS SUMMARY | 2023-12-09 10:20 | XMS_ITS ---
Author Organization [facility] in [place] Address [address] [place] [address] Care Team Providers Care R Programmer Name Role Phone Panchito Ford MD Primary Care Provider Zoila He Unavailable [phone] Allergies Allergen (clinical drug ingredient) Drug/Non Drug Allergy documented on EMR Reaction Allergy Type Onset Date Status atorvastatin Lipitor Unknown Drug Allergy Acti ve Penicillin Unknown Drug Allergy Active REASON FOR VISIT ingrown nail Medications Medication SIG (Take, Route, Frequency, Duration) Notes Start Date End Date Status Propafenone HCl 150 MG 1 tablet Orally e very 8 hrs 12/09/2023 Active Budesonide 3 MG 2 capsules Orally On ce a day 12/09/2023 Active Escitalopram Oxalate 5 MG 1 tablet Orall y Once a day 12/09/2023 Active Levothyroxine Sodium 25 MCG 1 tablet in the morning on an empty stomach Orally Once a day 12/09/2023 Active Insulin NPH (Human) (Isophane) 100 UNIT/ML as directed Subcutaneous 12/09/2023 Active Vitamin D (Ergocalciferol) 18018 UNIT 1 capsule Orally 12/09/2023 Active Aspirin 81 81 MG 1 tablet Orally Once a day 12/09/2023 Active Rosuvastatin Calcium 10 MG 1 tablet Oral ly Once a day 12/09/2023 Active Social History Tobacco Use: Social History Observation Description Date Details (start date - stop date) Current Smoker NA - NA Tobacco Control (Standard) Question Answer Notes Tobacco use: Current smoker How often do you smoke cigarettes? Every day Problems Problem Type SNOMED Code ICD Code Onset Dates Problem Status W/U Status Risk Notes Problem 542181920 Peripheral vascular disease, unspecified (I73.9) Active confirmed Vital Signs Weight 125 lbs 12/09/2023 Height 63 in 12/09/2023 Temperature 98.2 degrees Fahrenheit 12/09/19 24 Heart Rate 70 /min 12/09/2023 BMI 22.14 kg/m2 12/09/2023 Procedures Procedure Date Ordered Date Performed Result Body Sit e JENNIFER Ankle Brachial Index (52595) 12/09/2023 12/28/2023 N/A Encounters Encounter Location Date Provider Diagnosis [facility] (PODIATRY) [address] [place] [address] [place] [address] 12/09/2023 Zoila Sanchez Ingrowing nail L60.0 ; Peripheral vascular disease, unspecified I73.9 ; Cutaneous abscess of left foot L02.612 and Other specified symptoms and signs involving the circulatory and respiratory systems R09.89 Assessments Encounter Date Diagnosis (ICD Code) Assessment Notes Treatment Notes Treatment Clinical Notes Section Notes 12/09/2023 Ingrowing nail (ICD-10 - L60.0) The patient is a 58-year-old female with history of tobacco dependence who presents for evaluation of a painful ingrown toenail affecting the left hallux medial nail border. Physical examination reveals a small eschar at the tip of the nail fold. The tenderness extends all the way along the medial nail fold. Given the presence of the eschar and pain, I am concerned for arterial insufficiency. I recommend partial nail avulsion for definitive treatment. I also recommend ABIs. The patient is agreeable. 12/09/2023 Peripheral vascular disease, unspecified (ICD-10 - I73.9) JENNIFER/TBI's ordered 12/09/2023 Cutaneous abscess of left foot (ICD-10 - L02.612) After verbal consent, the skin over the hallux was prepped using alcohol. A digital block was performed using lidocaine 2% plain. After adequate anesthesia was verified, a nail elevator and soft tissue nippers were used to lift the offending nail border, which was then removed using a hemostat. The nail folds were then thoroughly curetted and all foreign material was removed. The site was then dressed with a dry sterile dressing placed loosely on the toe. Wound care and dressing instructions were given to the patient. The patient will follow-up in 2 weeks for reevaluation, but was advised to follow-up sooner if any evidence of worsening infection develops in the interim. 12/09/2023 Other specified symptoms and signs involving the circulatory and respiratory systems (ICD-10 - R09.89) Plan Of Treatment Treatment Notes Assessment Notes Ingrowing nail The patient is a 58-year-old female with history of tobacco dependence who presents for evaluation of a painful ingrown toenail affecting the left hallux medial nail border. Physical examination reveals a small eschar at the tip of the nail fold. The tenderness extends all the way along the medial nail fold. Given the presence of the eschar and pain, I am concerned for arterial insufficiency. I recommend partial nail avulsion for definitive treatment. I also recommend ABIs. The patient is agreeable. Peripheral vascular disease, unspecified JENNIFER/TBI's ordered Cutaneous abscess of left foot After conor bal consent, the skin over the hallux was prepped using alcohol. A digital block was performed using lidocaine 2% plain. After adequate anesthesia was verified, a nail elevator and soft tissue nippers were used to lift the offending nail border, which was then removed using a hemostat. The nail folds were then thoroughly curetted and all foreign material was removed. The site was then dressed with a dry sterile dressing placed loosely on the toe. Wound care and dressing instructions were given to the patient. The patient will follow-up in 2 weeks for reevaluation, but was advised to follow-up sooner if any evidence of worsening infection develops in the interim. Next Appt Details Follow Up: 2 Weeks, Reason: Progress Notes * Constantin HALEBeliaOB:1965 (58 yo F)Acc No.[id number]:12/09/2023 New Patient Patient: Tomy CRUZ Provider: Latanya Sanchez PA-C :1965 A ge:58 Y S ex:Female Date:12/09/2023 Address:[address] [place], [place] [id number] Pcp:Panchito Ford MD Check In:02:30 PM ESTCheck O ut:03:17 PM EST Subjective: * Chief Complaints: * I ngrown nail * HPI: G eneral: Pt is here for left great toe nail issue. She is having redness/ purple on her left toe . she is having swelling too. She is a diabetic , her last A1c was 6.9. * ROS: G eneral/Constitutional: Chills d enies. F ever d enies. W eight gain?denies. W eight loss d enies. S kin: Skin Ulcers d enies. S kin lesion(s) d enies. ? C ardiovascular: Difficulty breathing on exertion d enies. L eg cramps?denies. E william d enies. C hest pain d enies. R espiratory: Difficulty breathing d enies. D yspnea d enies.?Cough d enies. G astrointestinal: Diarrhea d enies. N ausea d enies. V omiting?denies. M usculoskeletal: Bone/Joint Symptoms d enies. C long-term Pain d enies.?Leg cramps d enies. N eurologic: Numbness d enies. T ingling d enies . G ait abnormality d enies. ? H ematology: Anemia D enies. E asy bruising d enies. ? A ll Other Systems: Review of Systems (ROS) S HPI for details,All others negative except those mentioned in HPI. * Active Problem List I73.9 Peripheral vascular disease, unspecified Modified On:12/09/2023W/U Status:confirmed * Medical History: * Surgical History: b ack surgery x 2 thyroidectomy angioplasty * Hospitalization/Major Diagno stic Procedure: s ee above * Social History: T obacco Use: T obacco Control (Standard) T obacco use: C urrent smoker H ow often do you smoke cigarettes? E very day * Medications: T akingAspirin 81(Aspirin) 81 MG Tablet Delayed Release 1 tablet Orally Once a day Budesonide 3 MG Capsule Delayed Release Particles 2 capsules Orally Once a day Escitalopram Oxalate 5 MG Tablet 1 tablet Orally Once a day Insulin NPH (Human) (Isophane) 100 UNIT/ML Suspension as directed Subcutaneous Levothyroxine Sodium 25 MCG Tablet 1 tablet in the morning on an empty stomach Orally Once a day Propafenone HCl 150 MG Tablet 1 tablet Orally every 8 hrs Rosuvastatin Calcium 10 MG Tablet 1 tablet Orally Once a day Vitamin D (Ergocalciferol) 09598 UNIT Capsule 1 capsule Orally Medication List reviewed and reconciled with the patientTaking Aspirin 81(Aspirin) 81 MG Tablet Delayed Release 1 tablet Orally Once a day Taking Budesonide 3 MG Capsule Delayed Release Particles 2 capsules Orally Once a day Taking Escitalopram Oxalate 5 MG Tablet 1 tablet Orally Once a day Taking Insulin NPH (Human) (Isophane) 100 UNIT/ML Suspension as directed Subcutaneous Taking Levothyroxine Sodium 25 MCG Tablet 1 tablet in the morning on an empty stomach Orally Once a day Taking Propafenone HCl 150 MG Tablet 1 tablet Orally every 8 hrs Taking Rosuvastatin Calcium 10 MG Tablet 1 tablet Orally Once a day Taking Vitamin D (Ergocalciferol) 58756 UNIT Capsule 1 capsule Orally Medication List reviewed and reconciled with the patient * Allergies: L ipitorPenicillinno[Allergies Verified] Objective: * Vitals: W t:125lbs, Ht: 63 in, Temp:98.2F, HR:70/min, BMI:22.14Index, Pain scale:41-10, Ht-cm: 160.02 cm, Wt-k.7 kg. * Examination: P odiatry Examination: SKIN: 0 .1 x 0.2 cm eschar on the left hallux at the distal tip of the medial nail border. The medial nail fold is tender to touch without erythema, edema, or active drainage. MUSCULOSKELETAL: p ain on palpation Limited to left hallux medial nail border, Range of motion of ankle and foot is within normal limits, Muscle strength is 5/5 in all planes. NEUROLOGICAL: L ight touch sensation is intact in all nerve distributions, Negative Tinel sign. VASCULAR: D P pulses faintly palpable bilaterally, PT pulses nonpalpable Capillary refill 3 seconds bilaterally Digital hair is absent. Assessment: * Assessment: 1. I ngrowing nail - L60.0 (Primary) 2 . P eripheral vascular disease, unspecified - I73.9 3 . C utaneous abscess of left foot - L02.612 4 . O ther specified symptoms and signs involving the circulatory and respiratory systems - R09.89 Plan: * Treatment: 2. P eripheral vascular disease, unspecified Notes: JENNIFER/TBI's ordered 3. C utaneous abscess of left foot Notes: After verbal consent, the skin over the hallux was prepped using alcohol. A digital block was performed using lidocaine 2% plain. After adequate anesthesia was verified, a nail elevator and soft tissue nippers were used to lift the offending nail border, which was then removed using a hemostat. The nail folds were then thoroughly curetted and all foreign material was removed. The site was then dressed with a dry sterile dressing placed loosely on the toe. Wound care and dressing instructions were given to the patient. The patient will follow-up in 2 weeks for reevaluation, but was advised to follow-up sooner if any evidence of worsening infection develops in the interim. 4. O ther specified symptoms and signs involving the circulatory and respiratory systems P rocedure: Segmental Pressure Study of Lower Extremity (23154) ?Procedure: JENNIFER Ankle Brachial Index (04457)* bilateral * Procedure Codes: 1 0061 I&D ABSCESS COMPLICATED, Modifiers: TA * Follow Up: 2 Weeks * * Sign off status: Completed Visit Status: C HK (Check Out) true * Provider: Latanya Sanchez PA-C Date: 0 12/09/2023 Generated for Karla lawrence/Kevin/Vandanaitting on: 0 04/10/2025 03:15 PM EDT History and Physical Notes * Examination Category Sub-Category Detail Notes Category Not es Podiatry Examination SKIN: 0.1 x 0.2 c m eschar on the left hallux at the distal tip of the medial nail border. The medial nail fold is tender to touch without erythema, edema, or active drainage MUSCULOSKELETAL: pain on palpation Li mited to left hallux medial nail border, Range of motion of ankle and foot is within normal limits, Muscle strength is 5/5 in all planes NEUROLOGICAL: Light touch sensatio n is intact in all nerve distributions, Negative Tinel sign VASCULAR: DP pulses faintly pa lpable bilaterally, PT pulses nonpalpable Capillary refill 3 seconds bilaterally Digital hair is absent
--- OUTSIDE RECORDS SUMMARY | 2023-12-10 04:33 | XMS_ITS ---
Author Organization The [facility] in [place] Address [address] [place] [address] Care Team Providers Care Preparer Making Department Name Role Phone Panchito Ford MD Primary Care Provider Wes Sams [facility] [phone] Medications Medication SIG (Take, Route, Frequency, Duration) Notes Start Date End Date Status Acetaminophen-Codeine 300-30 MG 1 tablet as needed Orally every 6 hrs for 5 days 12/10/2023 Active Encounters Encounter Location Date Provider Diagnosis [facility] (PODIATRY) [address] [place] [address] [place] [address] 12/10/2023 Wes Wallis Plan Of Treatment Medication Medication Name Sig Start Date Stop Date Notes Acetaminophen-Codeine 300-30 MG 1 tablet as needed Orally every 6 hrs for 5 days 12/10/2023 Progress Notes * Constantin HALEBeliaOB:1965 (58 yo F)Acc No.[id number]:12/10/2023 Patient: Tomy CRUZ :1965 A ge:58 Y S ex:Female Address:[address] [place] [address], [address] * Refills Start Acetaminophen-Codeine Tablet, 300-30 MG, Orally, 20 Tablet, 1 tablet as needed, every 6 hrs, 5 days, Refills=0 * true * Date: Generated for Karla lawrence/Kevin/eTransmitting on: 0 04/10/2025 03:15 PM EDT
--- OUTSIDE RECORDS SUMMARY | 2023-12-23 10:00 | XMS_ITS ---
Author Organization [facility] in [place] Address [address] [place] [address] Care Team Providers Care Shooter'S Helper Name Role Phone Panchito Ford MD Primary Care Provider Unavaila Zoila Henderson Unavailable [phone] REASON FOR VISIT 2 week f/u Encounters Encounter Location Date Provider Diagnosis [facility] (PODIATRY) [address] [place] [address] [place] [address] 12/23/2023 Zoila Sanchez Plan Of Treatment No Information Progress Notes * Olayinka HALEOB:1965 (60 yo F)Acc No.[id number]:12/23/2023 UNLOCKED PROGRESS NOTE Follow Up Patient: Tomy CRUZ Provider: Latanya Sanchez PA-C :1965 A ge:58 Y S ex:Female Date:12/23/2023 Address:[address] [place], [place] [id number] Pcp:Panchito Ford MD Subjective: * Chief Complaints: * 1 . 2 week f/u. * Medical History: Objective: * Vitals: Assessment: Plan: * Treatment: * * Electronic signature of Sanjeev Sanchez PA-C on 04/10/2025 at 03:14 PM EDT Sign off status: Pending Visit Status: N /S N/C (No Show/No Charge) * Provider: Latanya Sanchez PA-C Date: 12/23/2023 Generated for Printi ng/Faxing/eTransmitting on: 04/10/2025 03:14 PM EDT
--- OUTSIDE RECORDS SUMMARY | 2023-12-30 11:20 | XMS_ITS ---
Author Organization [facility] [place] Address [address] [place] [address] Care Team Providers Care Foundation Coordinator Name Role Phone Panchito Ford MD Primary Care Provider Zoila He Unavailable [phone] Allergies Allergen (clinical drug ingredient) Drug/Non Drug Allergy documented on EMR Reaction Allergy Type Onset Date Status atorvastatin Lipitor Unknown Drug Allergy Acti ve Penicillin Unknown Drug Allergy Active Reason For Referral Reason peripheral vascular disease -- see at [facility] COLT Diagnosis 1 Peripheral vascular disease, unspecified (I73.9) Diagnosis 2 Other specified symp toms and signs involving the circulatory and respiratory systems (R09.89) Referral Organization [facility] (P[facility]) Referring Provider First Name Zoila Referring Provider Last Name Daniel Referring Provider Speciality Podiatry Referred Provider Cruzito Phelps Referred Provider Specialty Vascular [facility] j[facility]atan General Notes Gavin Monroy 03:14:30 PM >Referral completed. Notes scanned in. Patient following up in wound care clinic. Referral Priority Routine REASON FOR VISIT 3 week fu Medications Medication SIG (Take, Route, Frequency, Duration) Notes Start Date End Date Status Vitamin D (Ergocalciferol) 99355 UNIT 1 capsule Orally 12/09/2023 Active Cephalexin 500 MG 1 capsule Orally BID for 10 days 12/30/2023 Active Rosuvastatin Calcium 10 MG 1 tablet Orally Once a day 12/09/2023 Active Propafenone HCl 150 MG 1 tablet Orally e very 8 hrs 12/09/2023 Active Levothyroxine Sodium 25 MCG 1 tablet in the morning on an empty stomach Orally Once a day 12/09/2023 Active Insulin NPH (Human) (Isophane) 100 UNIT/ML as directed Subcutaneous 12/09/2023 Active Escitalopram Oxalate 5 MG 1 tablet Orall y Once a day 12/09/2023 Active Budesonide 3 MG 2 capsules Orally On ce a day 12/09/2023 Active Aspirin 81 81 MG 1 tablet Orally Once a day 12/09/2023 Active Acetaminophen-Codeine 300-30 MG 1 tablet as needed Orally every 6 hrs for 5 days 12/10/2023 Not-Taking Social History Tobacco Use: Social History Observation Description Date Details (start date - stop date) Current Smoker NA - NA Tobacco Control (Standard) Question Answer Notes Tobacco use: Current smoker How often do you smoke cigarettes? Every day Vital Signs Weight 125 lbs 12/30/2023 Height 63 in 12/30/2023 Temperature 96.8 degrees Fahrenheit 12/30/19 Heart Rate 78 /min 12/30/2023 Respiratory Rate 16 /min 12/30/2023 BMI 22.14 kg/m2 12/30/2023 Encounters Encounter Location Date Provider Diagnosis [facility] (PODIATRY) [address] [place] [address] [place] [address] 12/30/2023 Zoila Sanchez Peripheral vascular disease, unspecified I73.9 and Other specified symptoms and signs involving the circulatory and respiratory systems R09.89 Assessments Encounter Date Diagnosis (ICD Code) Assessment Notes Treatment Notes Treatment Clinical Notes Section Notes 12/30/2023 Peripheral vascular disease, unspecified (ICD-10 - I73.9) Tomy is a 58 year old female who presents for reevaluaiton of ingrown left hallux nail. ABIs were ordered upon initial evaluation due to presence of a tiny eschar at the tip of the medial nail fold. Patient missed her followup appointment with Dr. Wallis and rescheduled for today. She states the pain is constant and involves the entire toe. The eschar is larger today. ABIs were obtained and are consistent with severe PAD. Pulses are obtainable by doppler today. No evidence of wet gangrene today but she was placed empirically on a course of keflex.I recommend she apply betadine wet to dry dressings to the eschar and d/c soaks. She was strongly encouraged to quit smoking. Referral placed to Dr. Phelps. Followup with Dr. Wallis or Dr. Corrigan in the Wound Center. 12/30/2023 Other specified symptoms and signs involving the circulatory and respiratory systems (ICD-10 - R09.89) Plan Of Treatment Medication Medication Name Sig Start Date Stop Date Notes Cephalexin 500 MG 1 capsule Orally BID for 10 days 024 Treatment Notes Assessment Notes Peripheral vascular disease, unspecified Tomy is a 58 year old female who presents for reevaluaiton of ingrown left hallux nail. ABIs were ordered upon initial evaluation due to presence of a tiny eschar at the tip of the medial nail fold. Patient missed her followup appointment with Dr. Wallis and rescheduled for today. She states the pain is constant and involves the entire toe. The eschar is larger today. ABIs were obtained and are consistent with severe PAD. Pulses are obtainable by doppler today. No evidence of wet gangrene today but she was placed empirically on a course of keflex.I recommend she apply betadine wet to dry dressings to the eschar and d/c soaks. She was strongly encouraged to quit smoking. Referral placed to Dr. Phelps. Followup with Dr. Wallis or Dr. Corrigan in the Wound Center. Referrals Referral Date Details 12/30/2023 12/30/2023, peripher al vascular disease -- see at [facility] COLTCruzito Next Appt Details Follow Up: 2 Weeks, Reason: wound center Progress Notes * Constantin HALEisDOB:1965 (58 yo F)Acc No.[id number]:12/30/2023 Follow Up Patient: Tomy CRUZ Provider: Latanya Sanchez PA-C :1965 A ge:58 Y S ex:Female Date:12/30/2023 Address:[address] [place], [place] [id number] Pcp:Panchito Ford MD Check In:03:20 PM ESTCheck O ut:04:05 PM EST Subjective: * Chief Complaints: * 3 week fu * HPI: G eneral: Pt was seen 12/09/23 with c/o left great toenail ingrown. PT had JENNIFER done since last visit. Pt states that she can't even touch left great toenail due to pain. 05/11. Left great toe slightly discolored , purple . Pt states the tylenol with codeine didn't even touch it. . Pt missed appointment last week . PT states I have been dealing with this pain for over 4 weeks Pt states has been soaking her toe and using triamcinolone crean to it per self. States she used the Medihoney for a little while but wasn't getting any better so she tried the triamcinolone cream that she had for her arms. * ROS: G eneral/Constitutional: Chills d enies. [...] M usculoskeletal: Bone/Joint Symptoms d enies. C ike Pain d enies.?Leg cramps d enies. N [...] Diagno stic Procedure: s ee above * Family History: N o Family History documented.. * Social History: T obacco Use: T [...] Orally Once a day Vitamin D (Ergocalciferol) 70175 UNIT Capsule 1 capsule Orally Taking Aspirin 81(Aspirin) 81 MG Tablet Delayed Release [...] Once a day Taking Vitamin D (Ergocalciferol) 99356 UNIT Capsule 1 capsule Orally Not-Taking/PRNAcetaminophen-Codeine 300-30 MG Tablet 1 tablet as needed Orally every 6 hrs Medication List reviewed and reconciled with the patientNot-Taking/PRN Acetaminophen-Codeine 300-30 MG Tablet 1 tablet as needed Orally every 6 hrs Medication List reviewed and reconciled with the patient * Allergies: L ipitorPenicillinno[Allergies Verified] Objective: * Vitals: W t:125lbs, Ht: 63 in, Temp:96.8F, HR:78/min, RR:16/min, BMI:22.14Index, Pain scale:101-10, Ht-cm: 160.02 cm, Wt-k.7 kg. * Examination: P odiatry Examination: SKIN: P ainful eschar of the medial nail fold of the left hallux. No active drainage.. MUSCULOSKELETAL: P ain on palpation left hallux toes are rectus No gross deformity. NEUROLOGICAL: L ight touch sensation is intact in all nerve distributions, Normal muscle tone. VASCULAR: L eft hallux is violaceous in color. Left hallux is cool to the touch with cap refill < 2 sec. DP and PT pulses are detectable by Doppler at bedside Digital hair is absent. Assessment: * Assessment: 1. P eripheral vascular disease, unspecified - I73.9 (Primary) 2 . O ther specified symptoms and signs involving the circulatory and respiratory systems - R09.89 Plan: * Treatment: 2. O ther specified symptoms and signs involving the circulatory and respiratory systems Referral To:Cruzito Phelps Vascular Surgery Reason:peripheral vascular disease -- see at [facility] COLT 3. O thers Start Cephalexin Capsule, 500 MG, 1 capsule, Orally, BID, 10 days, 20 Capsule, Refills 0. ? * Procedure Codes: * Follow Up: 2 Weeks (Reason: wound center) * * Sign off status: Completed Visit Status: C HK (Check Out) true * Provider: Latanya Sanchez PA-C Date: 0 12/30/2023 Generated for Karla lawrence/Kevin/Vandaanitting on: 0 04/10/2025 03:13 PM EDT History and Physical Notes * HPI (History of Present Illness) Category Sub-Category Detail Notes Category Not es General Pt was seen 12/08 with c/o left great toenail ingrown. PT had JENNIFER done since last visit. Pt states that she can't even touch left great toenail due to pain. 05/11. Left great toe slightly discolored , purple . Pt states the tylenol with codeine didn't even touch it. . Pt missed appointment last week . PT states I have been dealing with this pain for over 4 weeks Pt states has been soaking her toe and using triamcinolone crean to it per self. States she used the Medihoney for a little while but wasn't getting any better so she tried the triamcinolone cream that she had for her arms. Examination Category Sub-Category Detail Notes Category Not es Podiatry Examination SKIN: Painful esc simone of the medial nail fold of the left hallux. No active drainage. MUSCULOSKELETAL: Pain on palpation le ft hallux toes are rectus No gross deformity NEUROLOGICAL: Light touch sensatio n is intact in all nerve distributions, Normal muscle tone VASCULAR: Left hallux is viola ceous in color. Left hallux is cool to the touch with cap refill < 2 sec. DP and PT pulses are detectable by Doppler at bedside Digital hair is absent Consultation Request Notes Referral Date Referring Provider Referred Provider Not es 12/30/2023 Zoila Sanchez Mohamed peripherjorge l vascular disease -- see at [facility] COLT
--- OUTSIDE RECORDS SUMMARY | 2024-02-21 12:15 | XMS_ITS ---
Author Organization [facility] Address [address] [facility] [place] [address] Care Team Providers Care Campaign Worker Name Role Phone ([facility][1] Bianca LOPEZ(ID)), PHYSICIAN NOT IDENTIFIED Primary Care Provider Unavailable Kaila Calderón Unavailable [phone] Dariana Stringer [phone] REASON FOR VISIT 3 week f/u Encounters Encounter Location Date Provider Diagnosis [address] [place] [address] [place] [address] 02/21/2024 Dariana Stringer Plan Of Treatment No Information Progress Notes * HALE, KRDAMARISOB:1965 (60 yo F)Acc No.[id number]:02/21/2024 Behavioral Health Patient: CARI CRUZ Provider: Terrie Stringer :1965 A ge:59 Y S ex:Female Date:02/21/2024 Address:[address] [place], [place] [id number] Pcp:PHYSICIAN NOT IDENTIFIED ([facility] Subjective: * Chief Complaints: * 1 . 3 week f/u. * Medical History: Objective: * Vitals: Assessment: Plan: * Treatment: * Images: * Electronic signature of FRANK Hampton on 04/10/2025 at 03:14 PM EDT Sign off status: Pending * Provider: Terrie Stringer Date: 0 02/21/2024 Generated for Karla lawrence/Kevin/eTransmitting on: 0 04/10/2025 03:14 PM EDT
--- OUTSIDE RECORDS SUMMARY | 2024-04-13 11:30 | XMS_ITS ---
Author Organization [facility] Address [address] [facility] [place] [address] Care Team Providers Care Turn Supervisor Name Role Phone ([facility] Bianca MARROQUIN(ID)), PHYSICIAN NOT IDENTIFIED Primary Care Provider Unavailable Kaila Calderón Unavailable [phone] Dariana Stringer [phone] REASON FOR VISIT 1 month f/u; DEVOTED INS - WON'T COVER, NEED PYMT Encounters Encounter Location Date Provider Diagnosis [address] [place] [address] 04/13/2024 Dariana Stringer Plan Of Treatment No Information Progress Notes * NICCI HALEOB:1965 (60 yo F)Acc No.[id number]:04/13/2024 Behavioral Health Patient: CARI CRUZ Provider: Terrie Stringer :1965 A ge:59 Y S ex:Female Date:04/13/2024 Address:[address] [place] [address], [id number] Pcp:PHYSICIAN NOT IDENTIFIED ([facility]ID[facility] Subjective: * Chief Complaints: * 1 . 1 month f/u; DEVOTED INS - WON'T COVER, NEED PYMT. * Medical History: Objective: * Vitals: Assessment: Plan: * Treatment: * Images: * Electronic signature of FRANK Hampton on 04/10/2025 at 03:14 PM EDT Sign off status: Pending * Provider: Terrie Stringer Date: 0 04/13/2024 Generated for Karla lawrence/Kevin/Misael on: 0 04/10/2025 03:14 PM EDT
--- OUTSIDE RECORDS SUMMARY | 2025-04-10 15:14 | XMS_ITS | Clinical Summary ---
Author Organization [employer] Address [id number] [address] [place] [address] Care Team Providers Care Toe Former Name Role Phone Frida Valdez MANAGER SOCIAL MEDIA-HOME MANAGER Primary Care Provider [phone] Allergies Active Allergy Reactions Criticality Noted Date [...] Team Description 02/26/2025 [facility] [address] [place] [address] Sharda Lobo CMA Aortic valve stenosis, etiology [...] 11/09/2025 11/09/2024 Medical Devices Implanted Type Area Steel Rule Die Maker Device Identifier Shelf Expiration Date Model / Serial / Lot Stent 11mm 16sq Mm 8fr 29mm Bln Expandable Gw Kimberly Vbhn Vbx - [id number] - [id number] Implanted:Qty: 1 on 02/22/2024 by Cruzito Phelps MD at [facility] Stent N/A: Arterial Kimberly 08/23/2026 [id number] / [id number] / Description:AORTIC STENT Insurance [employer] MEDIC[employer] ADVANTAGE Care Teams Toe Former Relationship Specialty Start Date End Date Frida Valdez, MANAGER SOCIAL MEDIA-HOME MANAGER [address] [id number] PCP - General Nurse Practitioner 02/14/24
--- OUTSIDE RECORDS SUMMARY | 2025-04-10 15:14 | XMS_ITS | Encounter Summary ---
Author Organization [employer] tem Address [id number] [address] [place] [address] Care Team Providers Care Management Technician Name Role Phone Frida Valdez BONE DENSITY TECHNICIAN-INSULATING MACHINE OPERATOR Primary Care Provider [phone] Encounter Details Date Type Department Care Team (Late st Contact Info) Description 04/13/2024 Orders Only [facility] [address] [place] [address] Cruzito Phelps MD [address], [facility] [address] [place] [address] Social History Tobacco Use Types Packs/Day Years [...] on filedocumented in this encounter Care Teams Management Technician Relationship Specialty Start Date End Date Frida Valdez, BONE DENSITY TECHNICIAN-INSULATING MACHINE OPERATOR [address] [place] [address] PCP - General Nurse Practitioner 02/14/24 documented as of this encounter
--- OUTSIDE RECORDS SUMMARY | 2025-04-10 15:14 | XMS_ITS | Encounter Summary ---
Author Organization [facility] Address [address] [place] [address] Phone Care Team Providers Care Physical Security Engineer Name Role Phone Panchito Ford DO Primary Care Provider + Encounter Details Date Type Department Care Team (Late st Contact Info) Description 10/30/2024 Scanned Document [facility] [address] [place] [id number] Scanning, Generic Provider Social History Tobacco Use [...] Description 06/07/2025 3:15 PM EST Office Visit [facility] [address] [facility] [address] [place] [address] Ancelmo Ortiz MD [address] [facility] [address] [place], [place] [id number] documented as of this encounter Procedures Procedure [...] on filedocumented in this encounter Care Teams Physical Security Engineer Relationship Specialty Start Date End Date Panchito Ford DO [address] [place] [address] PCP - General Family Medicine 10/26/24 documented as of this encounter
--- OUTSIDE RECORDS SUMMARY | 2025-04-10 15:14 | XMS_ITS | Encounter Summary ---
Author Organization [employer] Address [facility] [id number] [address] [place] [address] Care Team Providers Care New Car Salesperson Name Role Phone Frida Valdez QUALITY IMPROVEMENT MANAGER-NEON SIGN MECHANIC Primary Care Provider [phone] Encounter Details Date Type Department Care Team (Late st Contact Info) Description 11/15/2024 Telephone [facility] [address] [place] [address] Cruzito Phelps MD [address], [facility] [address] [place] [address] Social History Tobacco Use Types Packs/Day Years [...] Edwige Harkins - 11/15/2024 11:34 AM EDT [facility] scheduling is calling to get an updated order with new diagnosis codes. The codes F17.210 and I35.0 are not being covered by medicare. Please fax an updated order with new diagnosis codes to [phone]. [facility] scheduling can be reached at [phone] direct line. Thank you. documented in this encounter Plan of Treatment Not on file documented as of this encounter Visit Diagnoses Not on filedocumented in this encounter Care Teams New Car Salesperson Relationship Specialty Start Date End Date Frida Valdez, QUALITY IMPROVEMENT MANAGER-NEON SIGN MECHANIC [address] [place] [address] PCP - General Nurse Practitioner 02/14/24 documented as of this encounter
--- OUTSIDE RECORDS SUMMARY | 2025-04-10 15:14 | XMS_ITS | Encounter Summary ---
Author Organization [employer] Address [facility] [id number] [address] 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
--- OUTSIDE RECORDS SUMMARY | 2025-04-10 15:14 | XMS_ITS | Encounter Summary ---
Author Organization [facility] Address [address] [place] [address] Phone Care Team Providers Care Tavern Keeper Name Role Phone Panchito Ford DO Primary Care Provider + Encounter Details Date Type Department Care Team (Late st Contact Info) Description 11/17/2024 Scanned Document [facility] [address] [place] [id number] Scanning, Generic Provider Social History Tobacco Use [...] Description 06/07/2025 3:15 PM EST Office Visit [facility] [address] [facility] [address] [place] [address] Ancelmo Ortiz MD [address] [facility] [address] [place], [place] [phone] documented as of this encounter Procedures Procedure [...] on filedocumented in this encounter Care Teams Tavern Keeper Relationship Specialty Start Date End Date Panchito Ford DO [address] [place], [place] [phone] PCP - General Family Medicine 10/26/24 documented as of this encounter
--- OUTSIDE RECORDS SUMMARY | 2025-04-10 15:14 | XMS_ITS | Encounter Summary ---
Author Organization [facility] [facility] [employer] Address [id number] [address] [place] [address] Care Team Providers Care Behavioral Health Counselor Name Role Phone Frida Valdez APRN-SWIM COACH Primary Care Provider [phone] Encounter Details Date Type Department Care Team (Late st Contact Info) Description 11/16/2024 Orders Only [facility] [address] [place] [phone] Sharda Lobo CMA Social History Tobacco Use [...] on filedocumented in this encounter Care Teams Behavioral Health Counselor Relationship Specialty Start Date End Date Frida Valdez APRN-SWIM COACH [address] [place] [address] PCP - General Nurse Practitioner 02/14/24 documented as of this encounter
--- OUTSIDE RECORDS SUMMARY | 2025-04-10 15:14 | XMS_ITS | Encounter Summary ---
Author Organization [facility] Address [address] [facility], [address] [place] [address] Care Team Providers Care Solution Design Engineer Name Role Phone LoganPanchito Primary Care Provider [phone] Encounter Details Date Type Department Care Team ([facility] st Contact Info) Description 10/06/2024 Pre-procedure [facility]phone [facility] [address] [place], [place] [phone] Darya Hall, RN Social History Tobacco Use Types Packs/Day Years Used Date Smoking Tobacco: Every Day Cigarettes 1 31.7 Started: 1993 Smokeless Tobacco: Never Alcohol Use [...] any time in the past [address] [facility], were you homeless or living [...] Care Team (Late st Contact Info) Description 05/17/2025 4:00 PM EDT Office Visit [facility] Primary Care [address] [place] [address] Panchito Ford DO [address] [place] [address] 3 mom f/u documented as of this encounter Visit Diagnoses Not on filedocumented in this encounter Additional Health Concerns Assessment Noted Time A fall risk assessment has been complete d for the patient 04/04/2024 3:05 PM EDT documented as of this encounter Care Teams Solution Design Engineer Relationship Specialty Start Date End Date Panchito Ford DO [address] [place] [address] PCP - General 11/15/12 documented as of this encounter
--- OUTSIDE RECORDS SUMMARY | 2025-04-10 15:14 | XMS_ITS | Encounter Summary ---
Author Organization [employer] Address [facility] [id number] [address] [place] [address] Care Team Providers Care Cordwood Cutter Name Role Phone Frida Valdez [employer] ARCHITECT-IT SYSTEMS MANAGER Primary Care Provider [phone] Encounter Details Date Type Department Care Team (Late st Contact Info) Description 09/14/2024 Telephone [facility] [address] [place] [address] Cruzito Phelps MD [address], [facility] [address] [place] [address] Social History Tobacco Use Types Packs/Day Years [...] her Surgery she can be reached at [phone] * Telephone Encounter - Sharda Lobo CMA [...] on filedocumented in this encounter Care Teams Cordwood Cutter Relationship Specialty Start Date End Date Frida Valdez, [employer] ARCHITECT-IT SYSTEMS MANAGER [address] [place] [id number] PCP - General Nurse Practitioner 02/14/24 documented as of this encounter
--- OUTSIDE RECORDS SUMMARY | 2025-04-10 15:14 | XMS_ITS | Encounter Summary ---
Author Organization [facility] Address [address] [place] [address] Phone Care Team Providers Care Instructional Coach Name Role Phone Panchito Ford DO Primary Care Provider + Encounter Details Date Type Department Care Team (Late st Contact Info) Description 01/15/2022 Orders Only [facility] [address] [place] [address] Conversion, Onbase Social History Tobacco Use Types [...] Description 06/07/2025 3:15 PM EST Office Visit [place] [address] [facility] [address] [place] [address] Ancelmo Ortiz MD [address] [facility] [address] [place] [address] Scheduled Orders Name Type Priority Associated Diagnoses Orde r Schedule OUTSIDE LAB SCAN Lab Ordered: 01/15/2022 documented as of this encounter Visit Diagnoses Not on filedocumented in this encounter Care Teams Instructional Coach Relationship Specialty Start Date End Date Panchito Ford DO [address] [place] [address] PCP - General Family Medicine 10/26/24 documented as of this encounter
--- OUTSIDE RECORDS SUMMARY | 2025-04-10 15:14 | XMS_ITS | Encounter Summary ---
Author Organization [employer] Address [id number] [address] [place] [address] Care Team Providers Care Fast Food Supervisor Name Role Phone Frida Valdez RETORT PRE COOKER-COMPUTER ANALYST Primary Care Provider [phone] Encounter Details Date Type Department Care Team (Late st Contact Info) Description 11/30/2024 Telephone [facility] [address] [place] [address] Cruzito Phelps MD [address], [facility] [address] [place] [address] Social History Tobacco Use Types Packs/Day Years [...] on filedocumented in this encounter Care Teams Fast Food Supervisor Relationship Specialty Start Date End Date Frida Valdez APRN-COMPUTER ANALYST [address] [place] [address] PCP - General Nurse Practitioner 02/14/24 documented as of this encounter
--- OUTSIDE RECORDS SUMMARY | 2025-04-10 15:14 | XMS_ITS | Encounter Summary ---
Author Organization [facility] Address [address] [place] [address] Phone Care Team Providers Care Claim Investigator Name Role Phone Panchito Ford DO Primary Care Provider + Encounter Details Date Type Department Care Team (Late st Contact Info) Description 10/25/[address] [facility] [address] [place] [id number] Scanning, Generic Provider Social History Tobacco Use [...] Description 06/07/2025 3:15 PM EST Office Visit [facility] [address] [facility] [address] [place] [address] Ancelmo Ortiz MD [address] [facility] [address] [place] [address] documented as of this encounter Visit Diagnoses Not on filedocumented in this encounter Care Teams Claim Investigator Relationship Specialty Start Date End Date Panchito Ford DO [address] [place] [address] PCP - General Family Medicine 10/26/24 documented as of this encounter
--- OUTSIDE RECORDS SUMMARY | 2025-04-10 15:14 | XMS_ITS | Patient Health Record ---
Author Organization [facility] [place] Address [address] [place] [address] Care Team Providers Care Health Worker Name Role Phone Panchito Ford MD Primary Care Provider Unavaila ble Allergies Allergen (clinical drug ingredient) Drug/Non Drug Allergy documented on EMR Reaction Allergy Type Onset Date Status atorvastatin Lipitor Unknown Drug Allergy Acti ve Penicillin Unknown Drug Allergy Active Reason For Referral No Information Medications Medication SIG (Take, Route, Frequency, Duration) Notes Start Date End Date Status Vitamin D (Ergocalciferol) 10195 UNIT 1 capsule Orally 12/09/2023 Active Cephalexin [...] Budesonide 3 MG 2 capsules Orally On a day 12/09/2023 Active Aspirin 81 81 [...] Problem Status W/U Status Risk Notes Problem [id number] Peripheral vascular disease, unspecified (I73.9) Active confirmed Problem Chronic ulcer of toe of left foot (disorder) (8994635462685 9107) Chronic ulcer of toe of left foot, limited to breakdown of skin (L97.521) Active confirmed Plan Of Treatment No Information Insurance Providers Payer Name Payer Address Payer Phone Subscriber Number Group Number Insured Name Patient Relationship to Insured Coverage Start Date Coverage End Date [employer] [address] [place] [id number] Tomy Weaver Self - patient is the insured Medical (General) History Medical History History ICD Code diabetes mellitus thyroid disease Surgical History Surgery Date(Month/Year) back surgery x 2 thyroidectomy angioplasty Hospitalization History Reason Date(Month/Year) see above
--- OUTSIDE RECORDS SUMMARY | 2025-04-10 15:14 | XMS_ITS | Encounter Summary ---
Author Organization [employer] Address [id number] [address] 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
--- OUTSIDE RECORDS SUMMARY | 2025-04-10 15:14 | XMS_ITS | Encounter Summary ---
Author Organization [facility] Address [address] [facility] [place] [address] Care Team Providers Care Supportive Employment Case Manager Name Role Phone Leandro Fordory Bianca CRUZ Primary Care Provider [phone] Encounter Details Date Type Department Care Team ([facility] st Contact Info) Description 08/03/2024 Orders Only [facility] [address] [place], [place] [phone] Provider, MD Sushant Social History Tobacco Use [...] any time in the past 12 m [facility], were you homeless or living in a retirement (including now)? No 03/28/2024 Food Insecurity Answer [...] Description 05/17/2025 4:00 PM EDT Office Visit [facility] [address] [place] [address] Panchito Ford DO [address] [place] [address] 3 mom f/u documented as of this [...] documented as of this encounter Care Teams Supportive Employment Case Manager Relationship Specialty Start Date End Date Panchito Ford DO [address] [place] [address] PCP - General 11/15/12 documented as of this encounter
--- OUTSIDE RECORDS SUMMARY | 2025-04-10 15:14 | XMS_ITS | Encounter Summary ---
Author Organization [facility] Address [address] [place] [address] Phone Care Team Providers Care Computer Assembler Name Role Phone Panchito Ford DO Primary Care Provider + Encounter Details Date Type Department Care Team (Late Contact Info) Description 11/16/2024 Scanned Document [facility] [address] [place] [phone] Scanning, Generic Provider Social History Tobacco Use [...] Description 06/07/2025 3:15 PM EST Office Visit [facility] [address] [facility] [address] [place] [address] Ancelmo Ortiz MD [address] [facility] [address] [place], [place] [phone] documented as of this encounter Procedures Procedure Name Priority Date/Time Associated Diagnosis Comments ECHOCARDIOGRAM 11/16/2024 documented in this encounter Results * Echocardiogram (11/16/2024) Narrative 11/16/2024 Ordered by an unspecified provider. us Generic Provider Scanning CV ECHO PROCEDURES Fin al Result documented in this encounter Visit Diagnoses Not on filedocumented in this encounter Care Teams Computer Assembler Relationship Specialty Start Date End Date Panchito Ford DO [address] [place], [place] [phone] PCP - General Family Medicine 10/26/24 documented as of this encounter
--- OUTSIDE RECORDS SUMMARY | 2025-04-10 15:14 | XMS_ITS | Encounter Summary ---
Author Organization [facility] Address [address] [facility] [address] [place] [address] Care Team Providers Care Project Eng Name Role Phone Panchito Ford DO Primary Care Provider [phone] Encounter Details Date Type Department Care Team ([facility] st Contact Info) Description 03/30/2024 Orders Only [facility] [address] [place] [address] Provider, MD Sushant Social History [...] any time in the past 12 m [facility], were you homeless or living in a fpc (including now)? No 03/28/2024 Food Insecurity Answer [...] Description 05/17/2025 4:00 PM EDT Office Visit [facility] [address] [place] [address] Panchito Ford DO [address] [place] [address] 3 mom f/u documented as of this [...] on filedocumented in this encounter Care Teams Project Eng Relationship Specialty Start Date End Date Panchito Ford DO [address] [place], [place] [id number] PCP - General 11/15/12 documented as of this encounter
--- OUTSIDE RECORDS SUMMARY | 2025-04-10 15:14 | XMS_ITS | Encounter Summary ---
Author Organization [employer] Address [facility] [id number] [address] [place] [address] Care Team Providers Care Cattery Operator Name Role Phone Frida Valdez Emily TIANN-MASTER PLANNER Primary Care Provider [phone] Encounter Details Date Type Department Care Team (Late st Contact Info) Description 02/26/2025 Orders Only [facility] [address] [place] [address] Sharda Lobo CMA Aortic valve stenosis, etiology [...] quit documented in this encounter Care Teams Cattery Operator Relationship Specialty Start Date End Date Frida Valdez, STATISTICAL CLERK-MASTER PLANNER [address] [place] [address] PCP - General Nurse Practitioner 02/14/24 documented as of this encounter
--- OUTSIDE RECORDS SUMMARY | 2025-04-10 15:14 | XMS_ITS | Encounter Summary ---
Author Organization [employer] Address [facility] [place] [id number] [address] [place] [address] Care Team Providers Care Automatic Drilling Machine Operator Name Role Phone Frida Valdez Primary Care Provider [phone] Encounter Details Date Type Department Care Team (Late st Contact Info) Description 11/17/2024 Orders Only [facility] [address] [place] [address] Sharda Lobo CMA Social History Tobacco Use [...] on filedocumented in this encounter Care Teams Automatic Drilling Machine Operator Relationship Specialty Start Date End Date Frida Valdez APRN-CNP [address] [place] [address] PCP - General Nurse Practitioner 02/14/24 documented as of this encounter
--- OUTSIDE RECORDS SUMMARY | 2025-04-10 15:14 | XMS_ITS | Encounter Summary ---
Author Organization [employer] Address [id number] [address] [place] [address] Care Team Providers Care Pulp Mixer Name Role Phone Frida Valdez POWDERER-BAND PRESSER Primary Care Provider [phone] Encounter Details Date Type Department Care Team (Late st Contact Info) Description 11/09/2024 Telephone [facility] [address] [place] [address] Cruzito Phelps MD [address], [facility] [address] [place] [address] Social History Tobacco Use Types Packs/Day Years [...] 12:24 PM EDT Arpita is calling from [facility]. She is stating someone asked them [...] of testing may need to be ordered. [phone] is main number, then ask for Arpita in Radiology if you have any further questions. Please advise. documented in this encounter Plan of Treatment Not on file documented as of this encounter Visit Diagnoses Not on filedocumented in this encounter Care Teams Pulp Mixer Relationship Specialty Start Date End Date Frida Valdez, POWDERER-BAND PRESSER [address] [place] [address] PCP - General Nurse Practitioner 02/14/24 documented as of this encounter
--- OUTSIDE RECORDS SUMMARY | 2025-04-10 15:14 | XMS_ITS | Encounter Summary ---
Author Organization [facility] Address [address] [place] [address] Care Team Providers Care Mail Technician Name Role Phone Leandro Fordory Bianca CRUZ Primary Care Provider [phone] Encounter Details Date Type Department Care Team ([facility] st Contact Info) Description 11/13/2024 Orders Only [facility] Primary Care [address] [place], [place] [phone] Provider, MD Sushant Social History Tobacco Use Types Packs/Day Years Used Date Smoking Tobacco: Every Day Cigarettes 1 31.7 Started: 1993 Smokeless Tobacco: Never Alcohol Use Standard Drinks/Week Comments Yes 0 (1 standard drink = 0.6 oz pur e alcohol) [facility] Utilities Answer Date Recorded In the past [...] any time in the past 12 m [facility], were you homeless or living in a long term (including now)? No 11/03/2024 Food Insecurity Answer [...] Description 05/17/2025 4:00 PM EDT Office Visit [facility] Primary Care [address] [place] [address] Panchito Ford, DO [address] [place] [address] 3 mom f/u documented as of this [...] PM Final 10/30/2024 4:43 PM NA Facility: [facility] [place] Specimen Source: NA Admitting Provider: Ordered [...] RISK >11.0 HIGH RISK Performed By: [facility] us Historical Provider CHEMISTRY ORDERABLES Edit ed Result - Final * Hemoglobin A1C (10/30/2024 1:53 PM EDT) Hemoglobin A1C 6.6 % Estimated Avg Glucose Blood BLOOD SPECIMEN / Unknown Impressions Kiarra Louis MA - 10/30/2024 1:53 PM EDT Glycohemoglobin A1C Date Collected Date Received Status Reported/Status Changed Priority 10/30/2024 3:45 PM 10/30/2024 3:46 PM Final 10/30/2024 4:43 PM NA Facility: [facility] [place] Specimen Source: NA Admitting Provider: Ordered Date: 10/30/2024 3:45 PM Body Site: NA Attending Provider: Ordering Provider: Patient Class: Ambulatory Test Result Reference Out Of Range Units Corrected/Cancelled Glycohemoglobin A1C 6.6 4.5-6.2 High % Result Comments: ADA RECOMMENDED LIMIT 4.0 - 6.0 ADA THERAPEUTIC TARGET < 7.0 ACTION SUGGESTED > 7.0 Estimated Average Glucose 143 mg/dL Performed By: [facility] , us Historical Provider CHEMISTRY ORDERABLES Edit ed Result - Final documented in this encounter Visit Diagnoses Not on filedocumented in this encounter Additional Health Concerns Assessment Noted Time A fall risk assessment has been complete d for the patient 11/03/2024 1:17 PM EDT documented as of this encounter Care Teams Mail Technician Relationship Specialty Start Date End Date Panchito Ford DO [address] [place] [address] PCP - General 11/15/12 documented as of this encounter
--- OUTSIDE RECORDS SUMMARY | 2025-04-10 15:14 | XMS_ITS | Clinical Summary ---
Author Organization [facility] Address [address] [place] [address] Phone Care Team Providers Care Maternity Floor Supervisor Name Role Phone Panchito Ford DO Primary [...] Description 06/07/2025 3:15 PM EST Office Visit [facility] [address] [facility] [address] [place] [address] Ancelmo Ortiz MD [address] [facility] [address] [place] [address] Health Maintenance Due Date Last Done Comments [...] (1 of 2) 2015 Colonoscopy 08/24/2023 08/24/2013 RSV High Risk: (Elderly (60+ ) or Population) (1 - Risk 60-74 years 1-dose series) 2025 COVID-19 Vaccine (1 - 2023-2 5 season) 2025 Influenza Vaccine (#1) 2025 Diabetes: Urine [...] patient's age to complete this topic Insurance Forum [employer] Care Teams Maternity Floor Supervisor Relationship Specialty Start Date End Date Panchito Ford DO [address] [place], [place] [phone] PCP - General Family Medicine 10/26/24
--- OUTSIDE RECORDS SUMMARY | 2025-04-10 15:14 | XMS_ITS | Clinical Summary ---
Author Organization [facility] Address [address], [address] [place] [address] Care Team Providers Care Yarn Examiner Skeins Name Role Phone Panchito Ford Primary Care Provider [phone] Allergies Active Allergy Reactions Criticality Noted Date Comments Atorvastatin Nausea Only,Other (S ee Comments),Rash Low 11/10/2016 Severe muscle aches Penicillins Other (See Comments),Rash,Shortness Of Breath,Swelling High 05/31/2002 respiratory arrest ARREST respiratory arrest BABY Pravastatin Myalgia High 02/10/2024 Muscle pains and blurred vision reports seeing stars Medications aspirin 81 MG EC tablet Take 1 tablet by mouth 4 Active vitamin D (ERGOCALCIFEROL) 1.25 MG (13929 UT) CAPS capsule Take 1 capsule by mouth once a week 12 capsule 4 4 Active clopidogrel (PLAVIX) 75 MG tablet Take 1 tablet by mouth daily 90 tablet 3 4 Active buPROPion (WELLBUTRIN XL) 150 MG extended release tablet Take 1 tablet by mouth in the morning and at bedtime 180 tablet 3 4 Active estradiol (ESTRACE) 2 MG tablet Take 1 tablet by mouth nightly 90 tablet 3 4 Active budesonide (ENTOCORT EC) 3 MG delayed release capsule Take 3 capsules by mouth every morning 270 capsule 3 4 Active Cholecalciferol 1.25 MG (64973 UT) TABS Take 50,000 Units by mouth once a week 12 tablet 4 4 Active lamoTRIgine (LAMICTAL) 150 MG tabletIndication s:Mild major depression TAKE 1 TABLET BY MOUTH EVERY DAY 90 tablet 1 5 Active hydrOXYzine HCl (ATARAX) 25 MG tablet TAKE 1 TABLET BY MOUTH EVERY 6 HOURS NEEDED FOR ANXIETY 360 tablet 1 5 Active rosuvastatin (CRESTOR) 5 MG tablet Take 1 tablet by mouth daily 90 tablet 3 5 Active Blood Glucose Monitoring Suppl (ONE TOUCH ULTRA 2) w/Device KIT USE DIRECTED 1 kit 5 Active levothyroxine (SYNTHROID) 150 MCG tablet Take 0.5 tablets by mouth Daily Skip dose twice weekly. 90 tablet 3 5 Active propranolol (INDERAL LA) 80 MG extended release capsuleIndicatio ns:Tremor Take 1 capsule by mouth daily 90 capsule 1 5 Active amphetamine-dext roamphetamine (ADDERALL, 10MG,) 10 MG tabletIndication s:Moderate recurrent major depression (HCC) Take 1 tablet by mouth 2 times daily for 30 days. Max Daily Amount: 20 mg 60 tablet 5 Active gabapentin (NEURONTIN) 300 MG capsuleIndicatio ns:Tremor Take 1 capsule by mouth in the morning and 1 capsule in the evening. Do all this for 30 days. Intended supply: 30 days. 60 capsule 5 Active NOVOLOG 100 UNIT/ML injection vialIndications: Type 1 diabetes mellitus without complication (HCC) USE DIRECTED WITH INSULIN PUMP. MAX DAILY DOSE 90 UNITS. 10 mL 3 5 Active blood glucose test strips (ONETOUCH ULTRA) stripIndications :Type 1 diabetes mellitus without complication (HCC) Use as directed. Testing three times daily. 300 strip 5 5 Active blood glucose test strips (ONETOUCH ULTRA) strip TEST ONCE DAILY AND NEEDED FOR SYMPTOMS OF IRREGULAR BLOOD GLUCOSE. 100 strip 3 5 03/21/20 25 Discontin ued([facility]) Active Problems Problem Noted Date Diagnosed Date Type 1 diabetes mellitus without complication Overview (03/28/2024): Diabetes mellitus Tremor 03/28/2024 Ulcerative colitis, chronic 03/28/2024 Vitamin D deficiency 03/28/2024 Nicotine dependence 03/28/2024 Overview (03/28/2024): Added secondary to documentation in Social History. 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 03/28/2024 Overview (03/28/2024): [...] Encounters Date Type Department Care Team Description 04/06/2025 Orders Only [facility] Thoracic Surgery [address] [place] [address] Mac Turner MD Malignant neoplasm of upper lobe of left lung (HCC) (Primary Dx) 03/29/[address] [address] Judy Sharif MA 03/21/2025 Refill [facility] [address] [place] [address] Panchito Ford, DO Medication Refill 03/02/2025 Refill [facility] [address] [place] [address] Panchito Ford, DO Medication Refill 02/27/[address] [address] Judy Sharif MA 02/27/2025 Orders Only [facility] [address] [place] [address] ProviderSushant MD 02/19/2025 3:00 PM EDT Office Visit [facility] Thoracic Surgery [address] [place] [address] Mac Turner MD Malignant neoplasm of upper lobe of left lung (HCC) (Primary Dx) 02/19/2025 Orders Only [facility] Thoracic Surgery [address] [place] [address] Mac Turner MD Lung mass (Primary Dx) 02/06/[address] [address] Panchito Ford DO RX request 02/03/[address] [address] Demi Briseno APRN - CNP Medication Refill 01/26/[address] [address] Judy Sharif MA 01/12/[address] [address] Panchito Ford DO 01/10/2025 2:00 PM EDT Office Visit [address] [address] Panchito Ford DO Moderate recurrent major depression (HCC) (Primary Dx); Type 1 diabetes mellitus without complication (HCC); Tremor; High risk medication use; Encounter for colorectal cancer screening from Last 3 Months Family History Medical [...] 1 31.7 Started: 1993 Smokeless Tobacco: Never Tobacco Cessation:Ready to Q uit: Not Asked; Counseling Given: Not Answered Alcohol Use Standard Drinks/Week Comments Yes 0 (1 standard drink = 0.6 oz pur e alcohol) [facility] Utilities Answer Date Recorded In the [...] any time in the past [address] [facility], were you homeless or living in a fpc (including now)? No 11/03/2024 Food Insecurity Answer [...] Description 05/17/2025 4:00 PM EDT Office Visit [facility] Primary Care [address] [place] [address] Panchito Ford DO [address] [place] [address] 3 mom f/u Health Maintenance Due Date [...] Colonoscopy 08/24/2023 08/24/2013 Colorectal Cancer Screen 08/24/2023 Respiratory Syncytial Virus (RSV) or age 60 yrs+ (1 - Risk 60-74 years 1-dose series) 2025 Flu vaccine (#1) 03/02/2025 Diabetic foot exam 03/28/2025 03/28/2024, 0 03/28/2024, 03/28/2024 COVID-19 Vaccine ( - 2023- season) 2025 Breast cancer screen 07/18/2025 07/18/2024, 01/11/20 Lung Cancer Screening &/or Counseling 10/09/2025 10/09/2024, [...] Processed 2 N/A 02/20/2025 6:45 AM EDT [facility] (CLIA #:[id number]) Comment: The Cologuard (TM) test was assigned to this specimen. Addition of stabilization buffer to the specimen could not be verified. The patient will be contacted to initiate a new sample collection. Feces (substance) STOOL SPECIMEN / Unknown 02/18/2025 10:10 PM EDT Panchito Ford DO MICROBIOLOGY - GENERAL ORDERA BLES Final Result [facility] (CLIA #:[id number]) [address] [place] [address], [facility] [place] [phone] * POCT Glucose (01/10/2025 4:07 PM EDT) [...] Oxymorphone Not Detected 01/14/2025 2:16 PM EDT [facility] Comment: INTERPRETIVE INFORMATION:Oxymorphone, U Positive Cutoff: 40 ng/mL Methodology: Mass Spectrometry Noroxymorphone, Urine Not Detected 01/14/2025 2:16 PM EDT [facility] Comment: INTERPRETIVE INFORMATION:Noroxymorphone, U Positive Cutoff: 100 ng/mL Methodology: Mass Spectrometry Hydrocodone Not Detected 01/14/2025 2:16 PM EDT [facility] Comment: INTERPRETIVE INFORMATION:Hydrocodone, U Positive Cutoff: 40 ng/mL Methodology: Mass Spectrometry Norhydrocodone, Urine Not Detected 01/14/2025 2:16 PM EDT [facility] Comment: INTERPRETIVE INFORMATION:Norhydrocodone, U Positive Cutoff: 100 ng/mL Methodology: Mass Spectrometry Hydromorphone Not Detected 2:16 PM EDT [facility] Comment: INTERPRETIVE INFORMATION:Hydromorphone, U Positive Cutoff: 20 ng/mL Methodology: Mass Spectrometry Naloxone Not Detected 01/14/2025 2:16 PM EDT [facility] Comment: INTERPRETIVE INFORMATION:Naloxone, U Positive Cutoff: 100 ng/mL Methodology: Mass Spectrometry Buprenorphine Not Detected 2:16 PM EDT [facility] Comment: INTERPRETIVE INFORMATION:Buprenorphine, U Positive Cutoff: 5 ng/mL Methodology: Mass Spectrometry Norbuprenorphine Not Detected 2024 2:16 PM EDT [facility] Comment: INTERPRETIVE INFORMATION:Norbuprenorphine, U Positive Cutoff: 20 ng/mL Methodology: Mass Spectrometry Fentanyl Not Detected 01/14/2025 2:16 PM EDT [facility] Comment: INTERPRETIVE INFORMATION:Fentanyl, U Positive Cutoff: 2 ng/mL Methodology: Mass Spectrometry Norfentanyl Not Detected 01/14/2025 2:16 PM EDT [facility] Comment: INTERPRETIVE INFORMATION:Norfentanyl, U Positive Cutoff: 2 ng/mL Methodology: Mass Spectrometry Meperidine Not Detected 01/14/2025 2:16 PM EDT [facility] Comment: INTERPRETIVE INFORMATION:Meperidine metabolite, U Positive Cutoff: 50 ng/mL Methodology: Mass Spectrometry Tapentadol, Urine Not Detected 01/14 2:16 PM EDT [facility] Comment: INTERPRETIVE INFORMATION:Tapentadol, U Positive Cutoff: 100 ng/mL Methodology: Mass Spectrometry Famqrgtfon-U-Hgmfoha , Urine Not Detected 01/14/2025 2:16 PM EDT [facility] Comment: INTERPRETIVE INFORMATION:Utqrwbrikd-o-Egrq, U Positive Cutoff: 200 ng/mL Methodology: Mass Spectrometry Methadone Negative 01/14/2025 2:16 PM EDT [facility] Comment: Presumptive negative by immunoassay. Testing by mass spectrometry is available on request. INTERPRETIVE INFORMATION: Methadone Screen, U Positive Cutoff: 150 ng/mL Methodology: Immunoassay Tramadol PresumptivePOS 01/14/2025 2:16 PM EDT [facility] Comment: Presumptive positive by immunoassay. Testing by mass spectrometry is available on request. INTERPRETIVE INFORMATION:Tramadol Screen, U Positive Cutoff: 100 ng/mL Methodology: Immunoassay Amphetamine Not Detected 01/14/2025 2:16 PM EDT [facility] Comment: INTERPRETIVE INFORMATION:Amphetamine, U Positive Cutoff: 50 ng/mL Methodology: Mass Spectrometry Methamphetamine Not Detected 025 2:16 PM EDT [facility] Comment: INTERPRETIVE INFORMATION:Methamphetamine, U Positive Cutoff: 200 ng/mL Methodology: Mass Spectrometry MDMA, Urine Not Detected 01/14/2025 2:16 PM EDT [facility] Comment: INTERPRETIVE INFORMATION:MDMA, U Positive Cutoff: 200 ng/mL Methodology: Mass Spectrometry MDA Not Detected 01/14/2025 2:16 PM EDT [facility] Comment: INTERPRETIVE INFORMATION:MDA, U Positive Cutoff: 200 ng/mL Methodology: Mass Spectrometry MDEA Not Detected 01/14/2025 2:16 PM EDT [facility] Comment: INTERPRETIVE INFORMATION:MDEA, U Positive Cutoff: 200 ng/mL Methodology: Mass Spectrometry Methylphenidate Not Detected 025 2:16 PM EDT [facility] Comment: INTERPRETIVE INFORMATION:Methylphenidate, U Positive Cutoff: 100 ng/mL Methodology: Mass Spectrometry Phentermine Not Detected 01/14/2025 2:16 PM EDT [facility] Comment: INTERPRETIVE INFORMATION:Phentermine, U Positive Cutoff: 100 ng/mL Methodology: Mass Spectrometry Benzoylecgonine Negative 2:16 PM EDT [facility] Comment: Presumptive negative by immunoassay. Testing by mass spectrometry is available on request. INTERPRETIVE INFORMATION:Cocaine Screen, U Positive Cutoff: 150 ng/mL Methodology: Immunoassay Alprazolam Present 01/14/2025 2:16 PM EDT [facility] Comment: INTERPRETIVE INFORMATION:Alprazolam, U Positive Cutoff: 40 ng/mL Methodology: Mass Spectrometry Weqpl-PX-ybbmkjxdtq Present 01/14 2:16 PM EDT [facility] Comment: INTERPRETIVE INFORMATION:Saflt-TX-Vbladsfxna, U Positive Cutoff: 20 ng/mL Methodology: Mass Spectrometry Clonazepam Not Detected 01/14/2025 2:16 PM EDT [facility] Comment: INTERPRETIVE INFORMATION:Clonazepam, U Positive Cutoff: 20 ng/mL Methodology: Mass Spectrometry 7-aminoclonazepam Not Detected 01/14 2:16 PM EDT [facility] Comment: INTERPRETIVE INFORMATION:7-Aminoclonazepam, U Positive Cutoff: 40 ng/mL Methodology: Mass Spectrometry Diazepam Not Detected 01/14/2025 2:16 PM EDT [facility] Comment: INTERPRETIVE INFORMATION:Diazepam, U Positive Cutoff: 50 ng/mL Methodology: Mass Spectrometry Nordiazepam Not Detected 01/14/2025 2:16 PM EDT [facility] Comment: INTERPRETIVE INFORMATION:Nordiazepam, U Positive Cutoff: 50 ng/mL Methodology: Mass Spectrometry OXAZEPAM Not Detected 01/14/2025 2:16 PM EDT [facility] Comment: INTERPRETIVE INFORMATION:Oxazepam, U Positive Cutoff: 50 ng/mL Methodology: Mass Spectrometry TEMAZEPAM Not Detected 01/14/2025 2:16 PM EDT [facility] Comment: INTERPRETIVE INFORMATION:Temazepam, U Positive Cutoff: 50 ng/mL Methodology: Mass Spectrometry Lorazepam Not Detected 01/14/2025 2:16 PM EDT [facility] Comment: INTERPRETIVE INFORMATION:Lorazepam, U Positive Cutoff: 60 ng/mL Methodology: Mass Spectrometry Midazolam Not Detected 01/14/2025 2:16 PM EDT [facility] Comment: INTERPRETIVE INFORMATION:Midazolam, U Positive Cutoff: 20 ng/mL Methodology: Mass Spectrometry Zolpidem Not Detected 01/14/2025 2:16 PM EDT [facility] Comment: INTERPRETIVE INFORMATION:Zolpidem, U Positive Cutoff: 20 ng/mL Methodology: Mass Spectrometry Gabapentin Not Detected 01/14/2025 2:16 PM EDT [facility] Comment: INTERPRETIVE INFORMATION:Gabapentin, U Positive Cutoff: 3,000 ng/mL Methodology: Mass Spectrometry Pregabalin Not Detected 01/14/2025 2:16 PM EDT [facility] Comment: INTERPRETIVE INFORMATION:Pregabalin, U Positive Cutoff: 3,000 ng/mL Methodology: Mass Spectrometry Fsjml-JS-Nwxxeoacv, Urine Not Detected 01/14/2025 2:16 PM EDT [facility] Comment: INTERPRETIVE INFORMATION:Fxtpi-NE-Vlgjdrszb, U Positive Cutoff: 20 ng/mL Methodology: Mass Spectrometry Barbiturates Negative 01/14/2025 2:16 PM EDT [facility] Comment: Presumptive negative by immunoassay. Testing by mass spectrometry is available on request. INTERPRETIVE INFORMATION:Barbiturates Screen, U Positive Cutoff: 200 ng/mL Methodology: Immunoassay Ethyl Glucuronide PresumptivePOS 2:16 PM EDT [facility] Comment: Presumptive positive by immunoassay. Testing [...] Immunoassay PCP Negative 01/14/2025 2:16 PM EDT [facility] Comment: Presumptive negative by immunoassay. Testing by mass spectrometry is available on request. INTERPRETIVE INFORMATION:Phencyclidine Screen, U Positive Cutoff: 25 ng/mL Methodology: Immunoassay Carisoprodol Negative 01/14/2025 2:16 PM EDT [facility] Comment: Presumptive negative by immunoassay. Testing by mass spectrometry is available on request. INTERPRETIVE INFORMATION: Carisoprodol Screen, U Positive Cutoff: 100 ng/mL Methodology: Immunoassay The carisoprodol immunoassay has cross-reactivity to carisoprodol and meprobamate. Pain Management Drug Panel See Below 01/14/2025 2:16 PM EDT [facility] Comment: Methodology: Qualitative Enzyme Immunoassay and [...] developed and its performance characteristics determined by [facility]. It has not been cleared or approved by the [place] Food and Drug Administration. This test was performed in a CLIA certified laboratory and is intended for clinical purposes. EER Pain Mgt Drug Panel, High Res/Emit U See Note 01/14/2025 2:16 PM EDT [facility] Comment: Authorized individuals can access the [facility] Enhanced Report with an [facility] Connect account using the following link. Your local lab can assist you in obtaining the patient report if you don't have a Connect account. [email or web address] Performed By: [facility] [address] [place] [address] Manager Document: Tano Ward MD, PhD CLIA Number: [id number] Creatinine, Ur 100.6 20.0 - 400.0 mg/dL 01/14/2025 2:16 PM EDT [facility] Urine 01/10/2025 3:27 PM EDT 01/10/2025 7:16 PM EDT Panchito Ford DO URINE ORDERABLES Final Result [facility] [address] [place], [place] [address] [phone] [facility] [address] [place], [place] [id number] [place] [address] * (ABNORMAL) Albumin/Creatinine Ratio, Urine (01/10/2025 3:27 PM EDT) Albumin Urine 38.30(H) Not Established mg/dL 01/10/2025 7:26 PM EDT [facility] Creatinine, Ur 98.6 Not Established mg/dL 01/10/2025 7:26 PM EDT [facility] Albumin/Creat inine Ratio 388.4(H) 0.0 - 30.0 mg/G 01/10/2025 7:26 PM EDT [facility] Urine (Urine) 01/10/2025 3:2 7 PM EDT 01/10/2025 7:16 PM EDT us Panchito Ford DO URINE ORDERABLES Final Result [facility] [place] [address], [facility] [place] [phone] * POCT glycosylated hemoglobin (Hb A1C) (01/10/2025 3:26 PM EDT) Hemoglobin A1C 5.7 % BLOOD SPECIMEN / Unknown 01/10/2025 3:26 PM EDT us Panchito Ford DO POINT OF CARE TEST [...] PM Final 10/30/2024 4:43 PM NA Facility: [facility] [place] Specimen Source: NA Admitting Provider: Ordered [...] RISK >11.0 HIGH RISK Performed By: [facility] Historical Provider CHEMISTRY ORDERABLES Edit ed Result [...] the pneumothorax. Electronically signed by Cole Pruitt Judy Dumont PA-C IMG CT ORDERABLES Final Resu lt * HM MAMMOGRAPHY (07/18/2024 10:25 AM EST) Anatomical Region Laterality Modality Other Historical Provider HEALTH MAINTENANCE Final Result * HM HPV (10/23/2020 12:51 PM EDT) us Historical Provider HEALTH MAINTENANCE Final Result * HM COLONOSCOPY (08/24/2013 12:50 PM EST) us Historical Provider HEALTH MAINTENANCE Final Result from Last 3 Months or Most Recently Relevant to Health Maintenance Insurance [facility] [employer] Care Teams Yarn Examiner Skeins Relationship Specialty Start Date End Date Panchito Ford DO [address] [place], [place] [id number] PCP - General 11/15/12
--- OUTSIDE RECORDS SUMMARY | 2025-04-10 15:15 | XMS_ITS | Encounter Summary ---
Author Organization [facility] Address [address], [address] [place] [address] Care Team Providers Care Commission Clerk Name Role Phone LoganPanchito Primary Care Provider [phone] Reason for Referral * Eval and Treat (Routine) - Open Specialty Diagnoses / Procedures Referred By Contac t Referred To Contact General Surgery Diagnoses Malignant neoplasm of upper lobe of left lung (HCC) Mac Turner MD [address] [place] [address] Phone: tel: fax: Referral ID Status Reason Start Date Expiration Date V isits Requested Visits Authorized [id number] Open Specialty Services Required 04/06/2025 10/03/2025 1 1 Question Answer Reason For External Referral? Second Opinion Comments The patient can be scheduled with any member of the group, including the provider with the first available appointments. Encounter Details Date Type Department Care Team (Late st Contact Info) Description 04/06/2025 [facility] [address] [place] [address] [address] [place] [address] Mac Turner MD [address] [place] [address] [address] [place] [address] Malignant neoplasm of upper lobe of left lung (HCC) (Primary Dx) Social History Tobacco Use Types Packs/Day Years Used Date Smoking Tobacco: Every Day Cigarettes 1 31.7 Started: 1993 Smokeless Tobacco: Never Alcohol Use Standard Drinks/Week Comments Yes 0 (1 standard drink = 0.6 oz pur e alcohol) [facility] Utilities Answer Date Recorded In the past 12 months has th e electric, gas, oil, or water company [...] any time in the past 12 [facility], were you homeless or living in a intermediate (including now)? No 11/03/2024 Food Insecurity Answer [...] Description 05/17/2025 4:00 PM EDT Office Visit [facility] Primary [facility] [address] [place] [address] Panchito Ford DO [address] [place] [address] 3 mom f/u Scheduled Referrals Name Type Priority Associated Diagnoses Orde r Schedule External Referral to General Surgery Outpatient Referral Routine Malignant neoplasm of upper lobe of left lung (HCC) Ordered: 04/06/2025 documented as of this encounter Visit Diagnoses Diagnosis Malignant neoplasm of upper lobe of left lung (HCC)- Primary documented in this encounter Additional Health Concerns Assessment Noted Time A fall risk assessment has been complete d for the patient 11/03/2024 1:17 PM EDT documented as of this encounter Care Teams Commission Clerk Relationship Specialty [place] [address] [place] [address] PCP - General 11/15/12 documented as of this encounter
--- OUTSIDE RECORDS SUMMARY | 2025-04-10 15:15 | XMS_ITS | Clinical Summary ---
Author Organization [facility] Address [address] [place], [place] [address] Care Team Providers Care Ballet Company Artistic Director Name Role Phone Unavailable Primary Care Provider [...] Protein, Total 7.0 6.0 - 8.4 g/dL [facility] Albumin 4.3 3.5 - 5.0 g/dL [facility] Calcium 9.8 8.5 - 10.5 mg/dL [facility] Bilirubin, Total 0.5 0.0 - 1.5 mg/dL [facility] Alkaline Phosphatase 61 20 - 120 U/L [facility] AST 18 7 - 40 U/L [facility] Glucose 133(A) 65 - 110 mg/dL [facility] BUN 15 8 - 25 mg/dL [facility] Creatinine 0.8 0.7 - 1.4 mg/dL [facility] Sodium 138 132 - 148 mmol/L [facility] Potassium 4.5 3.5 - 5.0 mmol/L [facility] Chloride 101 98 - 110 mmol/L [facility] CO2 23(A) 24 - 32 mmol/L [facility] Anion Gap 14 0 - 15 mmol/L [facility] ALT 12 0 - 45 U/L [facility] Blood specimen (specimen) BLOOD SPECIMEN / Unknown 05/31/2002 4:58 PM EST [facility] Final Result [facility] [address] [place] [address] from Last 3 Months or Most Recently Relevant to Health Maintenance Insurance [facility] Member Subscriber Plan / Payer (Ef fective 2004-Present) Name:Tomy Weaver Relation to Subscriber:Self Name:Tomy Weaver Payer ID:Not on file Group ID:Not on file Type:[facility] Address: [address] [id number] MEDICARE
--- OUTSIDE RECORDS SUMMARY | 2025-04-10 15:15 | XMS_ITS | Encounter Summary ---
Author Organization [facility] Address [id number] [address] [place] [address] Care Team Providers Care Automobile Mechanic Supervisor Name Role Phone Frida Valdez [employer] Primary Care Provider [phone] Encounter Details Date Type Department Care Team (Late st Contact Info) Description 01/26/2024 Orders Only [facility] [address] [place] [address] Cruzito Phelps MD [address], [facility] [address] [place] [address] Social History Tobacco Use Types Packs/Day Years [...] on filedocumented in this encounter Care Teams Automobile Mechanic Supervisor Relationship Specialty Start Date End Date Frida Valdez, [employer] [address] [place] [address] PCP - General Nurse Practitioner 02/14/24 documented as of this encounter
--- OUTSIDE RECORDS SUMMARY | 2025-04-10 15:15 | XMS_ITS | Encounter Summary ---
Author Organization [employer] [employer] [facility] Address [id number] [address] [place] [address] Care Team Providers Care Cager Operator Name Role Phone Frida Valdez CANDY [employer] Primary Care Provider [phone] Encounter Details Date Type Department Care Team (Late st Contact Info) Description 01/31/2024 Orders Only [facility] [address] [place] [address] Cruzito Phelps MD [address], [facility] [address] [place] [address] Social History Tobacco Use Types Packs/Day Years [...] on filedocumented in this encounter Care Teams Cager Operator Relationship Specialty Start Date End Date Frida Valdez, C[employer] [address] [place] [address] PCP - General Nurse Practitioner 02/14/24 documented as of this encounter
--- OUTSIDE RECORDS SUMMARY | 2025-04-10 15:15 | XMS_ITS | Encounter Summary ---
Author Organization [facility] Address [address], [address] [place] [address] Care Team Providers Care Christmas Tree Farmer Name Role Phone LoganPanchito Primary Care Provider [phone] Encounter Details Date Type Department Care Team ([facility] st Contact Info) Description 10/03/2024 Telephone [facility] Special Procedure [address] [place], [place] [id number] Alexandra Mars RN Social History Tobacco Use [...] any time in the past 12 m [facility], were you homeless or living in a [facility] (including now)? No 03/28/2024 Food Insecurity Answer [...] back with any questions or concerns at [phone]. documented in this encounter Plan of Treatment Upcoming Encounters Date Type Department Care Team (Late st Contact Info) Description 05/17/2025 4:00 PM EDT Office Visit [facility] [address] [place] [address] Panchito Ford DO [address] [place] [address] 3 mom f/u documented as of this encounter Visit Diagnoses Not on filedocumented in this encounter Additional Health Concerns Assessment Noted Time A fall risk assessment has been complete d for the patient 04/04/2024 3:05 PM EDT documented as of this encounter Care Teams Christmas Tree Farmer Relationship Specialty [place] [address] [place] [address] PCP - General 11/15/12 documented as of this encounter
--- OUTSIDE RECORDS SUMMARY | 2025-04-10 15:15 | XMS_ITS | Encounter Summary ---
Author Organization [facility] Address [address] [place] [address] Care Team Providers Care Prosthetics Assistant Name Role Phone Unavailable Primary Care Provider Unavailabl e Source Comments In the event this information is protected by the Federal Confidentiality of Alcohol and Drug AbusePatient Records regulations: The Federal rules restrict any use of the information to criminally investigate or prosecute any alcohol or drug abuse patient.[facility] Encounter Details Date Type Department Care Team (Late st Contact Info) Description 12/14/2024 Lab Requisition [facility] [address] [place] [address] Maiet Alexis MD [address] [place] [address] Person encountering health services to consult [...] EDT) Case Report Surgical Pathology Report Case: [id number] Authorizing Provider: Maite Alexis MD Collected: 12/14/2024 04:52 PM Ordering Location: [facility] Received: 12/14/2024 04:51 PM [facility] Pathologist: Daron Carroll MD Specimen: Block(s) and/or Slide(s), 11 SLIDES & 1 BLOCK [id number]; A3 12/19/2024 4:03 PM EDT [facility] FINAL DIAGNOSIS Lung, left upper lobe, wedge resection ([id number] A1-A7; 12/08/2024): -Invasive poorly differentiated adenocarcinoma (see comment). 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 Lymph node, level 5, resection ([id number] C1; 12/08/2024): -Rare atypical cells. 12/19/2024 4:03 PM EDT [facility] at 1603 EDT Diagnosis Comment This [...] please do not hesitate to contact us, [phone]. 12/19/2024 4:03 PM EDT [facility] Clinical History CONSULT REQUESTED 12/19/2024 4:03 PM EDT [facility] Performing Lab Diagnostic interpretation performed at: [facility], [address] [place] [address], [place] [address] CLIA# [id number] Software Test Engineer: Jonah Guzman MD 12/19/2024 4:03 PM EDT [facility] Disclaimer Laboratory Developed Test (LDT) Disclaimer: Performance characteristics of immunohistochemica l, immunofluorescent, and chromogenic in-situ hybridization tests have been determined by the performing laboratory within [facility]'s [facility] Pathology and Laboratory Medicine Department ([facility], [facility], [facility], [facility], [facility], [facility], or [facility]) in a manner consistent with CLIA requirements. One or more of these tests may not have been cleared or approved by the FDA. [facility] is regulated under CLIA as qualified to perform high-complexity testing. These tests are used for clinical purposes. These should not be regarded as investigational or for research. Positive and negative controls stain appropriately. 12/19/2024 4:03 PM EDT [facility] Blocks or Slides PARAFFIN EMBEDDED TISSUE BLOCK SPECIMEN / Unknown 12/14/2024 4:52 PM EDT 12/14/2024 4:51 PM EDT us Maite Alexis MD SURGICAL PATHOLOGY Final Result [facility] [address] [facility] [place] [address], [place] documented in this encounter Visit Diagnoses Diagnosis Person encountering health services to consult on behalf of another person Other person consulting on behalf of another person documented in this encounter
--- OUTSIDE RECORDS SUMMARY | 2025-04-10 15:15 | XMS_ITS | Encounter Summary ---
Author Organization [facility] Address [address], [address] [place] [address] Care Team Providers Care Flosser Name Role Phone Leandro Fordory Bianca CRUZ Primary Care Provider [phone] Encounter Details Date Type Department Care Team ([facility] st Contact Info) Description 02/27/2025 Orders Only [facility] Primary Care [address] [place], [place] [phone] Provider, MD Sushant Social History Tobacco Use Types Packs/Day Years Used Date Smoking Tobacco: Every Day Cigarettes 1 31.7 Started: 1993 Smokeless Tobacco: Never Alcohol Use Standard Drinks/Week Comments Yes 0 (1 standard drink = 0.6 oz pur e alcohol) [facility] Utilities Answer Date Recorded In the past [...] any time in the past 12 m [facility], were you homeless or living in a [facility] (including now)? No 11/03/2024 Food Insecurity Answer [...] Description 05/17/2025 4:00 PM EDT Office Visit [facility] Care [address] [place] [address] Panchito Ford, DO [address] [place] [address] 3 mom f/u documented as of this encounter Visit Diagnoses Not on filedocumented in this encounter Additional Health Concerns Assessment Noted Time A fall risk assessment has been complete d for the patient 11/03/2024 1:17 PM EDT documented as of this encounter Care Teams Flosser Relationship Specialty Start Date End Date Panchito Ford DO [address] [place] [address] PCP - General 11/15/12 documented as of this encounter
--- OUTSIDE RECORDS SUMMARY | 2025-04-10 15:15 | XMS_ITS | Encounter Summary ---
Author Organization [facility] Address [address], [address] [place] [address] Care Team Providers Care Fitness Floor Attendant Name Role Phone LoganPanchito Bianca CRUZ Primary Care Provider [phone] Encounter Details Date Type Department Care Team ([facility] st Contact Info) Description 03/29/2025 Abstract [facility] Primary Care [address] [place], [place] [id number] Judy Sharif MA Social History Tobacco Use Types Packs/Day Years Used Date Smoking Tobacco: Every Day Cigarettes 1 31.7 Started: 1993 Smokeless Tobacco: Never Alcohol Use Standard Drinks/Week Comments Yes 0 (1 standard drink = 0.6 oz pur e alcohol) [facility] Utilities Answer Date Recorded In the [...] any time in the past 12 m [facility], were you homeless or living in a care home (including now)? No 11/03/2024 Food Insecurity Answer [...] Description 05/17/2025 4:00 PM EDT Office Visit [facility] [address] [place] [address] Panchito Ford, [address] [place] [address] 3 mom f/u documented as of this encounter Visit Diagnoses Not on filedocumented in this encounter Additional Health Concerns Assessment Noted Time A fall risk assessment has been complete d for the patient 11/03/2024 1:17 PM EDT documented as of this encounter Care Teams Fitness Floor Attendant Relationship Specialty Start Date End Date Panchito Ford DO [address] [place] [address] PCP - General 11/15/12 documented as of this encounter
--- OUTSIDE RECORDS SUMMARY | 2025-04-10 15:15 | XMS_ITS | Encounter Summary ---
Author Organization [facility] Address [id number] [address] [place] [address] Care Team Providers Care Cataract Lens Generator Name Role Phone Frida Valdez Primary Care Provider [phone] Encounter Details Date Type Department Care Team (Late st Contact Info) Description 02/10/2024 Orders Only [facility] [address] [place] [address] Sharda Lobo CMA PAD (peripheral artery disease) ([facility]) Social History Tobacco Use Types Packs/Day Years [...] disease documented in this encounter Care Teams Cataract Lens Generator Relationship Specialty Start Date End Date Frida Valdez APRN-CNP [address] [place] [address] PCP - General Nurse Practitioner 02/14/24 documented as of this encounter
--- OUTSIDE RECORDS SUMMARY | 2025-04-10 15:15 | XMS_ITS | Patient Health Record ---
Author Organization [facility] Address [address] [place] [address] Care Team Providers Care Senior Technical Support Analyst Name Role Phone ([facility](ID)), PHYSICIAN NOT IDENTIFIED Primary Care Provider Unavailable Kaila Calderón Unavailable [phone] Dariana Stringer Unavailable [phone] Allergies Allergen (clinical drug ingredient) Drug/Non Drug Allergy documented on EMR Reaction Allergy Type Onset Date Status atorvastatin Lipitor Unknown Drug Allergy Acti ve Penicillin Unknown Drug Allergy Active Reason For Referral No Information Medications Medication SIG (Take, Route, Frequency, Duration) Notes Start Date End Date Status Budesonide 3 MG 1 capsule Orally Once a day Active Vitamin D 50,000 units per week Active Levothyroxine Sodium 100 MCG 1 tablet in the morning on an empty stomach Orally Once a day Active Fish Oil Active Rosuvastatin Calcium 5 MG 1 tablet Orally Once a day Active Aspirin 81 81 MG 1 tablet Orally Once a day Active Plavix 75 MG 1 tablet Orally Once a day Active Propranolol HCl 20 MG 1 tablet Orally Twice a day Active Progesterone 100 MG 1 capsule at bedtime Orally Once a day Active Escitalopram Oxalate 10 MG 1 tablet Orally Once a day Not-Taking Estradiol 2 MG 1 tablet Orally Once a day Active NovoLOG 100 UNIT/ML as directed Injection has insulin pump Active Wellbutrin XL 150 MG 1 tablet in the morning Orally Once a day Active lamoTRIgine 100 MG TAKE 1 TABLET BY MOUTH EVERY DAY FOR 30 DAYS; Duration: 90 Active Social History Tobacco Use: Social History Observation Description Date Details (start date - stop date) Current Smoker NA - NA Depression Screening (PHQ-9): Question Answer Notes Little interest or pleasure in doing things Near ly every day Feeling down, depressed, or hopeless Nearly ever y day Trouble falling or staying a sleep, or sleeping too much Nearly every day Feeling tired or having little energy Several da ys Poor appetite or overeating More than half the d ays Feeling bad about yourself-o r that you are a failure or have let yourself or your family down More than half the days Trouble concentrating on thi ngs, such as reading the newspaper or watching television More than half the days Moving or speaking so slowly that other people could have noticed. Or the opposite being so fidgety or restless that you have been moving around a lot more than usual Nearly every day Thoughts that you would be b estefani off , or of hurting yourself in some way Not at all Total Score 19 Intepretation Moderately severe depression AUDIT-C (Standard) Question Answer Notes Did you have a drink contain ing alcohol in the past year? Yes How often did you have six o r more drinks on one occasion in the past year? 4 or more times a week (4 points) How many drinks did you have on a typical day when you were drinking in the past year? 1 or 2 drinks (0 point) How often did you have a dri nk containing alcohol in the past year? Daily or almost daily (4 points) Points 8 Interpretation Positive Tobacco Control (Standard) Question Answer Notes Tobacco use: Current smoker How often do you smoke cigarettes? Every day How many cigarettes a day do you smoke? 6-10 Problems Problem Type SNOMED Code ICD Code Onset Dates Problem Status W/U Status Risk Notes Problem Bipolar affective disorder, currently depressed, moderate (926098238) Bipolar affective disorder, currently depressed, moderate (F31.32) Active confirmed Encounters Encounter Location Date Provider Diagnosis [facility] [address] [place] [address] 10/10/2024 Kaila Calderón Plan Of Treatment No Information Insurance Providers Payer Name Payer Address Payer Phone Subscriber Number Group Number Insured Name Patient Relationship to Insured Coverage Start Date Coverage End Date [facility] Non-Par [address] [place] [id number] [phone] [facility] Self - patient is the insured 4 Medical (General) History Medical History History ICD Code Type 1 diabetes Ulcerative colitis Surgical History Surgery Date(Month/Year) back surgeries x2 left thyroidectomy angioplasty angiogram colonoscopy x3 stent in stomach Hospitalization History Reason Date(Month/Year) surgery diabetes
--- OUTSIDE RECORDS SUMMARY | 2025-04-10 15:21 | XMS_ITS | CCD ---
Author Organization [facility] Care Team Providers Care Resource Manager Forester Name Role Phone REQUEST, DR NONE LISTED Primary Care UnavailSHAIKH Leydi Mirza Admitting Unavailable SHAIKH Leydi SHELBY Attending Unavailable DONNIE, DR JESSE Olmos Consulting Unavailable CHRISTIANA, DR BELLAMY Consulting Unavailable SHAIKH Leydi SHELBY Consulting Unavailable SILVA ALMANZAR Consulting Unavailable Geovanny Schaffer Unavailable Renate DIALLO Primary Care Physician [phone] DO Renate Diallo Primary Care Provider MD Geovanny Schaffer Attending Provider Oren Jones Unavailable Flora Escalera Primary Care Physician Flora Escalera Attending Unavailable Flora Escalera Attending Unavailable Flora Escalera Attending Unavailable Flora Escalera Attending Unavailable José MiguelFlora cedillo Attending Unavailable Renate DIALLO Attending Unavailable Han Olivera Attending Unavailable Lee Martinez Attending Unavailable Jesse Carr Consulting Unavailable Lee Martinez Admitting Unavailable Jesse Carr Consulting Unavailable DonnellyJesse Consulting Unavailable DonnellyJesse Consulting Unavailable DonnellyJesse Consulting Unavailable DonnellyJesse Consulting Unavailable Jesse Carr Consulting Unavailable Jesse Carr Consulting Jesse Duncan Consulting MD Jesse Duncan Consulting Unavailable Oren Mir Consulting UnavailMD Oren Steward Consulting UnaOren Woodward Consulting UnavailLee Mcgraw Attending Unavailable MD Oren Mir Consulting Unava Lee Viera Admitting Unavailable Jesse Carr Consulting Unavailable José Miguel, TRUER PINION [employer] WHEEL Flora L Admitting Unavailable Logan DO, Renate Valenzuela Primary Care Provider Unavailable Primary Care Provider Unavailabl e José Miguel MERCHANDISE CARRIER-HOT STRIP MILL INSPECTOR, Flora Diaz Primary Care Provider Unavailable Primary Care Provider Unavailabl e LOGAN, RENATE S Referring Unavailable LOGAN, RENATE Valenzuela Primary Care Unavailable TIMCOLE MOULTON Referring Unavailable LOGAN, RENATE S Primary Care Unavailable TIMCOLE MOULTON Referring Unavailable LOGAN, RENATE S Primary Care Unavailable DEBI DAVE Referring Unavailable LOGAN, RENATE Valenzuela Primary Care Unavailable Logan DO, Renate Cachorro Primary Care Provider Logan HANKS, Renate Primary Care Provider Mac Turner MD Unavailable Faisal CRUZ, Lissa Fowler Unavailable LISSA MALONE Attending Unavailable RENATE DIALLO Referring Unavailable LISSA MALONE Referring Unavailable LISSA MALONE Attending Unavailable MAC TURNER Referring Unavailable José Miguel MERCHANDISE CARRIER-HOT STRIP MILL INSPECTOR, Flora Diaz Primary Care Provider Logan DO, Renate Bianca Primary Care Provider Logan CRUZ, Renate Valenzuela Attending Provider Katarzyna Castro MD Other Provider [phone] Katarzyna Castro MD Attending Provider Janeth Plascencia DO Referring Provider KATARZYNA CASTRO Attending Unavailable RENATE DIALLO CACHORRO [facility] UnavailKATARZYNA Enriquez Referring Unavailable KATARZYNA CASTRO Attending Unavailable KATARZYNA CASTRO Referring Unavailable RENATE DIALLO CACHORRO [facility] UnavailMac Bertrand MD Attending Provider Mac Turner MD Admit Provider Lance WHITE, Lety Other Provider Unavailable Naveen RN, Марина Other Provider Unavailable Kenyatta RN, Mary Other Provider Unavailable Sonali RN, Renetta Other Provider Unavailable Prasanth RN, Arleen Other Provider Unavailable Damaso RN, Rosanna Other Provider Unavailable Ant Han MD Other Provider Bertha CRUZ, Edenilsonscottie Other Provider Jayy HANKS, Matthew Other Provider Scot Centeno DO Other Provider Hugh Mendoza MD Other Provider Bri Maravilla MD Other Provider Natalya CRUZ, Ag Other Provider Gunner HANKS, Alcon Other Provider Unavailable Sophy Coughlin APRN Other Provider Donal HANKS, Jackie Other Provider Marcell Andrade MD Other Provider Rekha Pagan MD Other Provider Unavailable Georgie Burden MD Other Provider Argenis CRUZ, Ag Other Provider Jessica Mckay MD Other Provider Joe Hutchison MD Other Provider Monica PAVING CREW FOREMAN-C, Kiarra Silverio Other Provider Olivier Knapp APRN Other Provider Unavailable Sean Hart MD Other Provider Sumanth HANKS, Chun Other Provider Marty Smith MD Other Provider Tevin Call MD Other Provider Unavailable Olu Smith MD Other Provider Sherrell Tejeda DO Other Provider Juan Manuel DO, Wolf Olmos Other Provider Aida Schmidt APRN Other Provider Luis Beaver DO Other Provider Geena HANKS, Mikey Avila Other Provider [phone] Eli Richard APRN Other Provider Arti East APRN Other Provider Marilyn HANKS, Kusum Other Provider Unavailable Nicole HANKS, Dulce Maria Silverio Other Provider Hsu DO, Cong T Other Provider Shruthi Grace DO Other Provider Luis HANKS, Maicol Arreguin Other Provider Wong HANKS, Raisa Spencer Other Provider [phone] Kimberly Samson APRN Other Provider Unavailable Dru HANKS, Daly Other Provider Stevie HANKS, Issac Other Provider Ozzy Perez MD Other Provider Hortensia HANKS, Alcon Valenzuela Other Provider Rashel HANKS, Shilo Other Provider Fallon Kim APRN Other Provider Edward Garcia APRN Other Provider Bev RN, Yovana Other Provider Unavailable Yenni HANKS, Mike Other Provider Renate Diallo MD Primary Care Provider Mac Turner MD Unavailable Renate Diallo DO Primary Care Provider Oren Jones APRN Attending Provider Genie Bass MD Attending Provider Mac Turner MD Referring Provider Noble Tipton MD Attending Provider Mac Turner Referring Unavailable Renate Diallo Primary Care Unavailable Genie Bass Attending Unavailyakelin e Genie Bass Admitting Unavailabl Lety Workman Consulting Unavailable Renate Diallo Primary Care Unavailable Mac Turner Admitting Unavailable Mac Turner Attending Unavailable Марина Hodge Consulting Unavailable Mary You Consulting Unavailable Renetta Lyon Consulting Unavailable Arleen Rader Consulting Unavailable Rosanna Petit Consulting Unavailable Ant Han Consulting Unavailable Nolberto Stone Consulting Unavailable Matthew Hope Consulting Unavailable Scot Centeno Consulting UnavailHugh Fletcher Consulting Unavailable Bri Maravilla Consulting Unavailable Ag Hoang Consulting Unavailable Alcon Martino Consulting Unavailable Sophy Coughlin Consulting UnavailJackie Porter Consulting Unavailable Marcell Andrade Consulting Unavailable Rekha Pagan Consulting Unavailable Georgie Burden Consulting Unavailable Ag More Consulting Unavailable Jessica Mckay Consulting Unavailable Joe Hutchison Consulting Unavailable Kiarra Anderson Consulting Unavailable Olivier Knapp Consulting Unavailable Sean Hart Consulting UnavailChun Burden Consulting Unavailable Marty Smith Consulting Unavailable Tevin Call Consulting Unavailable Olu Smith Consulting Unavailable Sherrell Tejeda Consulting Unavailable Wolf Zambrano Consulting Unavailable ObAida michelle Consulting Unavailable Luis Beaver Consulting Unavailable Daromar [...] Nicolettwes Consulting Unavaila Yovana Paez Consulting Unavailable Yenni, Basem Consulting Unavailable Janeth Plascencia Referring Unavailable Renate Diallo Primary Care Unavailable Katarzyna Castro Attending Unavailable Katarzyna Castro Admitting Unavailable Renate Diallo Attending Unavailable Renate Diallo Primary Care Unavailable Renate Diallo Admitting Unavailable Katarzyna Castro Consulting Unavailable Mac Turner Attending Unavailable Renate Diallo Primary Care Unavailable Mac Turner Admitting Unavailable Unavailable Unavailable Unavailable Allergies Allergy Classification Reported Allergen(s) Allergy Type Date of Onset Reaction(s) Facility (7 sources) Dextroamphetamine ; Translations: [Lipitor] Drug Allergy 08-11-19 [facility] Repository (20 sources) Penicillins; Translations: [penicillins] Drug allergy (disorder) 08-11-19 Other (See Comments) [facility] Repository (20 sources) atorvastatin; Translations: [atorvastatin] Drug Allergy 11-11-19 Rash, Other (See Comments), Nausea, Nausea Only, Myalgia, Other, Unknown [facility] Comment on above: muscle pain (20 sources) Penicillin G Drug Allergy 01-13-20 Rash, Shortness Of Breath [employer] Other (15 sources) Acetaminophen / HYDROcodone; Translations: [acetaminophen-hy drocodone] Drug Allergy 02-10-20 [facility] (20 sources) Pravastatin; Translations: [pravastatin] Drug Allergy 02-10-20 Other (See Comments), Myalgia [facility] (10 sources) atorvastatin Drug Allergy 11-11-19 Nausea Only, Other (See Comments), Rash [facility] (11 sources) Penicillins Propensity to adverse reactions to drug 05-31-20 Other (See Comments), Rash, Shortness Of Breath, Swelling [facility] (4 sources) Penicillins Drug Allergy 08-11-19 Anaphylaxis, Rash, Shortness of breath, Swelling, Unknown, Other (See Comments) [facility] Work Phone: (6 sources) Penicillins Drug Allergy 08-11-19 Anaphylaxis, Rash, Shortness of breath, Swelling [facility] (1 source) atorvastatin Drug Allergy 03-28-20 [facility] Repository (1 source) Penicillins Drug allergy (disorder) 03-28-20 [facility] Repository Medications Current Medications Medication Drug Class(es) Dates Sig (Normalized) Sig (Original) acetaminophen 325 mg / HYDROcodone bitartrate 5 mg oral tablet (9 sources) Opioid Agonist Start: 07-19-2024 take 1 tablet by mouth every six hours as needed HYDROcodone-acetam inophen ([place]) 5-325 MG tablet Take 1 tablet by mouth every 6 (six) hours if needed 07/19/2024 Active amitriptyline hydrochloride 10 mg oral tablet (2 sources) Tricyclic Antidepressant Start: 12-09-2020 take 1 tablet by mouth once daily at bedtime amitriptyline 10 mg Tab 10 mg = 1 tab(s), Oral, Once a day (at bedtime), # 90 tab(s), Refills(s) 3, Pharmacy: [facility]/pharmacy #[id number], 160, cm, 12/09/20 13:39:00 EDT, Height/Length [...] tab(s), Oral, BID, 60 tab(s), Refill(s) 5, [facility]/pharmacy #[id number], 160, cm, 09/05/20 14:51:00 EST, Height/Length Dosing, 60.4, kg, 09/05/20 14:51:00 EST, Weight Dosing Start Date: 09/24/20 Status: Ordered cholecalciferol 1.25 mg oral tablet (18 sources) Vitamin D Start: 05-17-2024 cholecalcifero l (Vitamin D3) 1.25 MG (51214 UT) tablet Take 50,000 Units by mouth [...] Sep, Active diazePAM 5 mg oral tablet (6 sources) Benzodiazepine Start: 03-15-2025 End: 03-23-2025 dicyclomine hydrochloride 20 mg oral tablet (16 sources) Anticholinergic dicyclomine (Bentyl) 20 MG tablet Take 20 mg by mouth Active ergocalciferol 1.25 mg oral capsule (20 sources) Provitamin D2 Compound Start: 11-01-2024 ergocalciferol (Vitamin D2) 1.25 MG (47389 UT) capsule 11/01/2024 Active Start: 12-09-2023 take 1 capsule by [facility] every week ergocalciferol (DRISDOL) 1,250 mcg (50,000 unit) capsule Take 1 capsule (50,000 Units total) by mouth once a week. 12/09/2023 Active Start: 10-13-2022 take 1 capsule by [facility] every week estradiol 2 mg oral tablet (20 sources) Estrogen Start: 01-09-2022 End: 02-14-2024 take 1 tablet by mouth once daily in the evening Fish Oils (4 sources) folic acid 1 mg oral tablet (1 source) Start: 03-28-2025 take 1 tablet by mouth once daily gabapentin 300 mg oral capsule (11 sources) Anti-epileptic Agent Start: 12-08-2021 take 1 capsule by mouth three times daily gabapentin 300 mg Cap 300 mg = 1 cap(s), Oral, TID, M54.106, # 270 cap(s), Refills(s) 1, Pharmacy: [facility]/pharmacy #[id number], 158, cm, 09/02/21 14:45:00 EST, Height/Length Dosing, 60, kg, 09/02/21 14:45:00 EST, Weight Dosing Start Date: 12/08/21 Status: Ordered hydrOXYzine hydrochloride 25 mg oral tablet (20 sources) Antihistamine Start: 12-05-2024 take 1 tablet by luke four times daily as needed for anxiety Start: 02-04-2024 take 1 tablet by luke th every six hours as needed hydrOXYzine HCl (Atarax) 25 MG tablet Take 1 tablet by mouth every 6 (six) hours if needed 02/04/2024 Active Start: 12-31-2022 take 1 tablet by luke th four times daily as needed for anxiety hydrOXYzine hydrochloride 25 mg Tab 25 mg = 1 tab(s), Oral, QID, PRN for anxiety, # 40 tab(s), Refills(s) 3, Pharmacy: [facility]/pharmacy #[id number], 158, cm, 05/25/23 15:27:00 EDT, Height/Length [...] day(s), # 120 tab(s), Refills(s) 0, Pharmacy: [facility]/pharmacy #[id number], 158, cm, 12/31/22 15:13:00 EDT, Height/Length [...] E11.01, # 10 mL, Refills(s) 5, Pharmacy: [facility]/pharmacy #[id number], 158, cm, 05/25/23 15:27:00 EDT, Height/Length Dosing, 57.3, kg, 05/25/23 15:27:00 EDT, Weight Dosing Start Date: 12/01/23 Status: Ordered Start: 02-08-2023 NovoLOG 100 un its/mL injectable solution See Instructions, 35 units daily per pump. Dx E11.01, # 10 mL, Refills(s) 5, [id number], cm, 12/31/22 15:13:00 EDT, Height/Length Dosing, 57.9, kg, 12/31/22 15:13:00 EDT, Weight Dosing Start Date: 02/08/23 Status: Ordered Start: 10-13-2022 inject 19 [IU] by hartman bcutaneous injection once daily Start: 07-23-2022 NovoLOG 100 un its/mL injectable solution See Instructions, 35 units daily per pump. Dx E11.01, # 10 mL, Refills(s) 5, [id number] 158, cm, 06/11/22 15:39:00 EST, Height/Length Dosing, 61.4, kg, 06/11/22 15:39:00 EST, Weight Dosing Start Date: 07/23/22 Status: Ordered Start: 10-24-2021 NovoLOG 100 un its/mL injectable solution See Instructions, 35 units daily per pump. Dx E11.01, # 10 mL, Refills(s) 5, Pharmacy: [facility]/pharmacy #[id number], 158, cm, 09/02/21 14:45:00 EST, Height/Length [...] Start: 05-12-2022 take 3 tablets by mo [facility] once daily lamotrigine 50 mg oral tablet, extended release See Instructions, 3 tab(s) Oral Daily x 2 week, then 2 tabs x 2 week then 1 tab x 2 week. Then will start the 25 mg, # 74 tab(s), Refills(s) 0, Pharmacy: [facility]/pharmacy #[id number], 158, cm, 05/12/22 15:40:00 EDT, Height/Length Dosing, 59.8, kg, 05/12/22 15:... Start Date: 05/12/22 Status: Ordered Start: 02-05-2022 take 1 tablet by luke once daily lamotrigine 200 mg Tab 200 mg = 1 tab(s), Oral, Daily, # 90 tab(s), Refills(s) 1, Pharmacy: [facility]/pharmacy #[id number], 158, cm, 09/02/21 14:45:00 EST, Height/Length Dosing, 60, kg, 09/02/21 14:45:00 EST, Weight Dosing Start Date: 02/05/22 Status: Ordered lamoTRIgine Acti ve levothyroxine sodium 0.15 mg oral tablet (20 sources) l-Thyroxine Start: 02-28-2024 take 1 tablet by mouth once daily levothyroxine 150 mcg (0.15 mg) Tab See Instructions, TAKE 1 TABLET BY MOUTH EVERY DAY, # 90 tab(s), Refills(s) 1, Pharmacy: [facility] STORE [id number], 158, cm, 05/25/23 15:27:00 EDT, Height/Length Dosing, 57.3, kg, 05/25/23 15:27:00 EDT, Weight Dosing Start Date: 02/28/24 Status: Ordered Start: 02-28-2024 take 1 tablet by luke th once daily levothyroxine (Synthroid, Levoxyl) 150 MCG tablet Take 1 tablet by mouth Daily 02/28/2024 Active Start: 12-06-2023 Start: 12-06-2023 take 1 capsule by mo [facility] once daily Levothyroxine 100 mcg capsule Active [...] Daily, # 90 tab(s), Refills(s) 1, [id number] 158, cm, 06/11/22 15:39:00 EST, Height/Length Dosing, 61.4, kg, 06/11/22 15:39:00 EST, Weight Dosing Start Date: 08/13/22 Status: Ordered Start: 02-05-2022 take 1 tablet by luke th once daily Synthroid 150 mcg (0.15 mg) Tab 0.15 mg = 1 tab(s), Oral, Daily, # 90 tab(s), Refills(s) 1, [id number] 158, cm, 09/02/21 14:45:00 EST, Height/Length [...] 30 each 3 01/13/2024 01/13/2024 Discontinued (Reorder) ondansetron 8 mg disintegrating oral tablet (1 source) Serotonin-3 Receptor Antagonist Start: 03-28-2025 take 1 tablet by mouth every eight hours as needed for nausea and vomiting ONETOUCH DELICA PLUS 33G LANCT (2 sources) Start: 05-12-2022 ONETOUCH DELICA PLUS 33G LANCT USE TO TEST BLOOD SUGAR 5 TIMES A DAY AND NEEDED DX: E11.69 Start Date: 05/12/22 Status: Ordered predniSONE 5 mg oral tablet (3 sources) Start: 10-15-2022 predniSONE 5 MG 4 tabs daily for 7 days, 3 tabs daily for 7 days, 2 tabs daily for 7 days, 1 tab daily for 7 days Orally Once a day for 28 days Sep, Active prochlorperazine 10 mg oral tablet (1 source) Phenothiazine Start: 03-28-2025 take 1 tablet by mouth every six hours as needed for nausea and vomiting 24 hr propranolol hydrochloride 80 mg extended [...] Daily, # 90 tab(s), Refills(s) 0, Pharmacy: [facility]/pharmacy #[id number], 158, cm, 12/31/22 15:13:00 EDT, Height/Length [...] qWeek, # 12 EA, Refills(s) 3, Pharmacy: [facility]/pharmacy #[id number], 158, cm, 05/25/23 15:27:00 EDT, Height/Length Dosing, 57.3, kg, 05/25/23 15:27:00 EDT, Weight Dosing Start Date: 12/10/23 Status: Ordered Start: 12-25-2022 Vitamin D 50,0 00 intl units (1.25 mg) oral capsule 50,000 International_Unit, Oral, qWeek, # 12 EA, Refills(s) 3, [id number] 158, cm, 06/11/22 15:39:00 EST, Height/Length Dosing, 61.4, kg, 06/11/22 15:39:00 EST, Weight Dosing Start Date: 12/25/22 Status: Ordered Start: 10-23-2021 Vitamin D 50,0 00 intl units (1.25 mg) oral capsule 50,000 International_Unit, Oral, qWeek, # 12 EA, Refills(s) 3, [id number] 158, cm, 09/02/21 14:45:00 EST, Height/Length [...] Start: 05-17-2024 take 1 capsule by mo uth every twenty-four hours before mealtime budesonide EC (Entocort EC) 3 mg 24 hr capsule Take 3 capsules (9 mg) by mouth once daily in the morning. Take before meals. 05/17/2024 Active Start: 07-28-2023 take 1 capsule by mo uth three times daily Budesonide 3 MG 1 Capsule Orally three times per day for 30 days 27 Dec, 2023 Active Start: 10-13-2022 End: 01-15-2025 take 3 capsules by mouth once daily in the morning Budesonide 3 mg capsule,delayed,extend.release Discontinued 9 MG PO Every morning December 05, 2024 12:00am January 15, 2025 2:27pm Start: 10-13-2022 take 9 mg by mouth once daily Budesonide Active 9 MG PO Daily 90 30 October 13, 2022 12:00am Start: 09-30-2020 take 3 capsules by m outh once daily in the morning budesonide 3 mg oral delayed release capsule 9 mg = 3 cap(s), Oral, qAM, # 90 cap(s), Refills(s) 2, Pharmacy: [facility]/pharmacy #[id number], 160, cm, 09/05/20 14:51:00 EST, Height/Length Dosing, 60.4, kg, 09/05/20 14:51:00 EST, Weight Dosing Start Date: 09/30/20 Status: Ordered take 2 capsules by m outh once daily in the morning budesonide EC (ENTOCORT EC) 3 mg 24 hr capsule Take 2 capsules (6 mg total) by mouth every morning. Active citalopram 10 mg oral tablet (19 sources) Serotonin Reuptake Inhibitor Start: 10-13-2022 End: 12-05-2024 take 1 tablet by mouth once daily in the morning Citalopram 10 mg tablet Discontinued 10 MG PO Every morning October 13, 2022 12:00am December 05, 2024 4:42pm Start: 05-12-2022 take 3 tablets by mo uth once daily, then take 2 tablets by [...] week., # 74 tab(s), Refills(s) 0, Pharmacy: [facility]/pharmacy #[id number], 158, cm, 05/12/22 15:40:00 EDT, Height/Length Dosing, 59.8, k... Start Date: 05/12/22 Status: Ordered Start: 02-05-2022 take 1 tablet by luke once daily CeleXA 40 mg Tab 40 mg = 1 tab(s), Oral, Daily, # 90 tab(s), Refills(s) 1, Pharmacy: [facility]/pharmacy #[id number], 158, cm, 09/02/21 14:45:00 EST, Height/Length Dosing, 60, kg, 09/02/21 14:45:00 EST, Weight Dosing Start Date: 02/05/22 Status: Ordered Citalopram [place] bromide Active clindamycin 10 mg/ml topical lotion (8 sources) Lincosamide Antibacterial Start: 12-06-2023 End: 12-05-2024 [...] 1040, Intra-op LORazepam 1 mg oral tablet (5 sources) Benzodiazepine Start: 03-15-2025 End: 03-15-2025 Lorazepam [...] day(s), # 14 tab(s), Refills(s) 0, Pharmacy: [facility]/pharmacy #[id number], 158, cm, 05/12/22 15:40:00 EDT, Height/Length [...] Intra-op triamcinolone acetonide 1 mg/ml topical cream (8 sources) Corticosteroid Start: 12-06-2023 End: 12-05-2024 Triamcinolone [...] Onset: 2 Chronic Cancer of bronchus; lung (20 sources) Malignant tumor of lung; Translations: [Malignant neoplasm of unspecified part of left bronchus or lung] Onset: 5 Resolved: 5 10-26-2024 Chronic Cardiac and circulatory congenital anomalies (4 sources) Disorder of aorta; Translations: [Coarctation of aorta] 03-16-2024 Chronic Coagulation and hemorrhagic disorders (8 sources) Purpura of skin caused by mechanical [...] Translations: [Depression, unspecified] Onset: 5 Noninfectious gastroenteritis (8 sources) Colitis; Translations: [Noninfective gastroenteritis and colitis, unspecified] 01-15-2025 Episodic Nonspecific chest pain (11 sources) Chest pain, unspecified; Translations: [Chest pain] Onset: 2 Episodic Other aftercare (1 source) Other field consultant (current) drug therapy; Translations: [[facility] CURRENT DRUG THERAPY] Onset: 2 Episodic Other aftercare (3 sources) 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 Unclassified (1 source) C34.90 - Malignant neoplasm of unspecified part of unspecified bronchus or lung Past or Other Problems Problem Classification Problem [...] disease (20 sources) Atherosclerotic heart disease of [place] coronary artery without angina pectoris; Translations: [Coronary [...] lower limb ischemia ; Translations: [Atherosclerosis of [place] arteries of extremities with gangrene, left leg] [...] sources) Long-term current use of insulin; Translations: [freight traffic consultant (current) use of insulin] Onset: 12-31-2022 Resolved: [...] Test Name Value Interpretation Reference Range Facility Alanine aminotransferase [En zymatic activity/volume] in Serum or PlasmaOrdered By: Genie Bass on 03-28-2025 ALT [Catalytic activity/Vol] 16 U/L Normal 7-52 [facility] Comment on above: Performed By: #### C BC, CMP #### [address] Albumin [Mass/volume] in Ser um or Plasma by Bromocresol green (BCG) dye binding methoOrdered By: Genie Bass on 03-28-2025 Albumin BCG dye [Mass/Vol] See comment 3.5-5.7 [facility] Comment on above: Specimen hemolyzed, redraw requested Alkaline phosphatase [Enzyma tic activity/volume] in Serum or PlasmaOrdered By: Genie Bass on 03-28-2025 ALP [Catalytic activity/Vol] 110 U/L High 34-104 [facility] Comment on above: Performed By: #### C BC, CMP #### [facility] [address] [place] [address] Aspartate aminotransferase [ Enzymatic activity/volume] in Serum or PlasmaOrdered By: Genie Bass on 03-28-2025 AST [Catalytic activity/Vol] See comment 13-39 [facility] Comment on above: Specimen hemolyzed, redraw requested Basophils [#/volume] in Bloo d by Automated countOrdered By: Genie Bass on 03-28-2025 Basophils (Bld) [#/Vol] 0.1 10*3/uL Normal 0.0-0.2 [facility] Comment on above: Result Comment: PERF ORMED BY: [place] [address] PATHOLOGIST SENIOR SOFTWARE ENGINEER DIMITRIOS KRUSE M.D. Performed By: #### C BC, CMP #### [facility] [address] Basophils/100 leukocytes in Blood by Automated countOrdered By: Genie Bass on 03-28-2025 Basophils/100 WBC (Bld) 1.4 % Normal . [facility] Comment on above: Performed By: #### C BC, CMP #### [address] Bilirubin.total [Mass/volume ] in Serum or PlasmaOrdered By: Genie Bass on 03-28-2025 Bilirubin [Mass/Vol] 0.3 mg/dL Normal 0.3-1.0 [facility] Comment on above: Performed By: #### C BC, CMP #### [address] Calcium [Mass/volume] in Ser um or PlasmaOrdered By: Genie Bass on 03-28-2025 Calcium [Mass/Vol] 8.9 mg/dL Normal 8.6-10.3 [facility] Comment on above: Performed By: #### C BC, CMP #### [address] Capillary blood glucose ramon urement by glucometer (mass/volume)Ordered By: Genie Bass on 03-28-2025 Glucose [Mass/Vol] 154 mg/dL Normal [facility] Comment on above: Random Glucose Refer ence Range is dependent on time and content of last meal. Glucose of more than 200 mg/dL in a nonstressed, ambulatory subject supports the diagnosis of Diabetes Mellitus. Result Comment: [facility] Glucose Reference Range is dependent on time and content of last meal. Glucose of more than 200 mg/dL in a nonstressed, ambulatory subject supports the diagnosis of Diabetes Mellitus. PERFORMED BY: [place] [address] PATHOLOGIST SENIOR SOFTWARE ENGINEER DIMITRIOS KRUSE M.D. Performed By: #### G LULS #### Point of Care testing , Carbon dioxide, total [Moles /volume] in Serum or PlasmaOrdered By: Genie Wayne on 03-28-2025 CO2 [Moles/Vol] 23.9 mmol/L Normal 21.0-31.0 [facility] Comment on above: Performed By: #### C BC, CMP #### [address] Chloride [Moles/volume] in S mervat or PlasmaOrdered By: Genie Bass on 03-28-2025 Chloride [Moles/Vol] 103 mmol/L Normal 98-107 [facility] Comment on above: Performed By: #### C BC, CMP #### [address] Complete Blood Count Auto Di ffon 03-28-2025 Mean Corpuscular HGB Conc 33.3 g/dL Normal 32.0-35.0 [facility] Comment on above: Performed By: #### C BC, CMP #### [address] NRBC% 0.1 /100{WBC} Normal 0-0.5 [facility] Comment on above: Performed By: #### C BC, CMP #### [address] White Blood Count 7.9 [CFU]/mL Normal 3.8-11.6 [facility] Comment on above: Performed By: #### C BC, CMP #### [address] Comprehensive Metabolic Pane jb 03-28-2025 Albumin Level Normal 3.5-5.7 [facility] Comment on above: Result Comment: Spec imen hemolyzed, redraw requested Performed By: #### C BC, CMP #### [address] Albumin/Globulin Ratio Normal Th e [facility] Comment on above: Result Comment: Spec imen hemolyzed, redraw requested Performed By: #### C BC, CMP #### [address] Anion Gap Normal 6.0-15.0 [facility] Comment on above: Result Comment: Spec imen hemolyzed, redraw requested Performed By: #### C BC, CMP #### [facility] [address] Aspartate Amino Transferase Normal 13-39 [facility] Comment on above: Result Comment: Spec imen hemolyzed, redraw requested Performed By: #### C BC, CMP #### [facility] [address] Creatinine Clr Calc Pharmacy 63.79 Normal [facility] Comment on above: Result Comment: PERF ORMED BY: [place] [address] PATHOLOGIST SENIOR SOFTWARE ENGINEER DIMITRIOS KRUSE M.D. Performed By: #### C BC, CMP #### [address] GFR/1.73 sq M.predicted MDRD (S/P/Bld) [Vol rate/Area] mL/min/{1.73_m2} Normal [facility] Comment on above: Performed By: #### C BC, CMP #### [address] Globulin Normal [facility] Comment on above: Result Comment: Spec imen hemolyzed, redraw requested Performed By: #### C BC, CMP #### [address] Potassium Normal 3.5-5.1 [facility] Comment on above: Result Comment: Spec imen hemolyzed, redraw requested Performed By: #### C BC, CMP #### [facility] [address] Sodium Normal 136-145 [facility] Comment on above: Result Comment: Spec imen hemolyzed, redraw requested Performed By: #### C BC, CMP #### [address] Total Protein Normal 6.4-8.9 [facility] Comment on above: Result Comment: Spec imen hemolyzed, redraw requested Performed By: #### C BC, CMP #### [address] Creatinine [Mass/volume] in Serum or PlasmaOrdered By: ashley Bass on 03-28-2025 Creatinine [Mass/Vol] 0.79 mg/dL Normal 0.60-1.20 [facility] Comment on above: Performed By: #### C BC, CMP #### [address] Eosinophils [#/volume] in Bl ood by Automated countOrdered By: ashley Bass on 03-28-2025 Eosinophils (Bld) [#/Vol] 0.2 10*3/uL Normal 0.0-0.45 [facility] Comment on above: Performed By: #### C BC, CMP #### [address] Eosinophils/100 leukocytes i n Blood by Automated countOrdered By: ashley Bass on 03-28-2025 Eosinophils/100 WBC (Bld) 2.1 % Normal . [facility] Comment on above: Performed By: #### C BC, CMP #### [address] Erythrocyte distribution wid th [Ratio] by Automated countOrdered By: ashley Wayne on 03-28-2025 Erythrocyte distribution width (RBC) [Ratio] 13.5 % Normal 11.9-15.3 [facility] Comment on above: Performed By: #### C BC, CMP #### [address] Erythrocytes [#/volume] in B lood by Automated countOrdered By: ashley Bass on 03-28-2025 RBC (Bld) [#/Vol] 4.12 10*6/uL Normal 3.60-5.00 [facility] Comment on above: Performed By: #### C BC, CMP #### [address] Globulin Calc (S) [Mass/Vol] Ordered By: Genie Bass on 03-28-2025 Globulin (S) [Mass/Vol] See comment [facility] Comment on above: Specimen hemolyzed, redraw requested Glomerular filtration rate [ Volume Rate/Area] in Serum, Plasma or Blood by CreatinineOrdered By: Genie Bass on 03-28-2025 Glomerular filtration rate [Volume Rate/Area] in Serum, Plasma or Blood by Creatinine > 60.0 mL/Min [facility] Glucose [Mass/volume] in Ser um or PlasmaOrdered By: Genie Bass on 03-28-2025 Glucose [Mass/Vol] 137 mg/dL High 70-100 [facility] Comment on above: ADA recommended refe rence rangeRandom Glucose Reference Range is dependent on time and content of last meal. Glucose of more than 200 mg/dL in a nonstressed, ambulatory subject supports the diagnosis of Diabetes Mellitus. Result Comment: [place] [facility] Glucose Reference Range is dependent on time and content of last meal. Glucose of more than 200 mg/dL in a nonstressed, ambulatory subject supports the diagnosis of Diabetes Mellitus. ADA recommended reference range Performed By: #### C BC, CMP #### [address] Hematocrit [Volume Fraction] of Blood by Automated countOrdered By: Genie Wayne on 03-28-2025 Hematocrit (Bld) [Volume fraction] 39.0 % Normal 34.0-46.4 [facility] Comment on above: Performed By: #### C BC, CMP #### [facility] [address] [place] [address] [place] Hemoglobin [Mass/volume] in BloodOrdered By: Genie Bass on 03-28-2025 Hemoglobin (Bld) [Mass/Vol] 13.0 g/dL Normal 11.8-15.4 [facility] Comment on above: Performed By: #### C BC, CMP #### [facility] [address] [place] [address] [place] Leukocytes [#/volume] correc andrew for nucleated erythrocytes in Blood by Automated counOrdered By: Genie Bass on 03-28-2025 WBC corrected for nucl RBC Auto (Bld) [#/Vol] 7.9 10*3/uL 3.8-11.6 [facility] Leukocytes [#/volume] in Blo od by Automated countOrdered By: Genie Bass on 03-28-2025 WBC (Bld) [#/Vol] 7.9 10*3/uL Normal 3.8-11.6 [facility] Comment on above: Performed By: #### C BC, CMP #### [facility] [address] [place] [address] [place] Lymphocytes [#/volume] in Bl ood by Automated countOrdered By: Genie Bass on 03-28-2025 Lymphocytes (Bld) [#/Vol] 3.5 10*3/uL Normal 1.00-4.8 [facility] Comment on above: Performed By: #### C BC, CMP #### [facility] [address] [place] [address] [place] Lymphocytes/100 leukocytes i n Blood by Automated countOrdered By: Genie Bass on 03-28-2025 Lymphocytes/100 WBC (Bld) 44.3 % Normal . [facility] Comment on above: Performed By: #### C BC, CMP #### [address] MCH [Entitic mass] by Automa andrew countOrdered By: Genie Bass on 03-28-2025 MCH (RBC) [Entitic mass] 31.5 pg Normal 24.7-34.3 [facility] Comment on above: Performed By: #### C BC, CMP #### [facility] [address] [place] [address] MCHC Auto (RBC) [Mass/Vol]Or dered By: Genie Bass on 03-28-2025 MCHC (RBC) [Mass/Vol] 33.3 g/dL 32.0-35.0 [facility] MCV [Entitic volume] by Auto mated countOrdered By: Genie Bass on 03-28-2025 MCV (RBC) [Entitic vol] 94.5 fL Normal 80-100 [facility] Comment on above: Performed By: #### C BC, CMP #### [address] Monocytes [#/volume] in Bloo d by Automated countOrdered By: Genie Moreno-Rosana on 03-28-2025 Monocytes (Bld) [#/Vol] 0.7 10*3/uL Normal 0.0-0.8 [facility] Comment on above: Performed By: #### C BC, CMP #### [address] Monocytes/100 leukocytes in Blood by Automated countOrdered By: Genie Moreno-Rosana on 03-28-2025 Monocytes/100 WBC (Bld) 8.6 % Normal . [facility] Comment on above: Performed By: #### C BC, CMP #### [address] Neutrophils [#/volume] in Bl ood by Automated countOrdered By: ashley Moreno-Rosana on 03-28-2025 Neutrophils (Bld) [#/Vol] 3.5 10*3/uL Normal 1.8-7.7 [facility] Comment on above: Performed By: #### C BC, CMP #### [address] Neutrophils/100 leukocytes i n Blood by Automated countOrdered By: Genie Moreno-Rosana on 03-28-2025 Neutrophils/100 WBC (Bld) 43.6 % Normal . [facility] Comment on above: Performed By: #### C BC, CMP #### [address] No Panel InformationOrdered By: Genie Moreno-Rosana on 03-28-2025 Pharmacy Creatinine Clearance (Chem 63.79 [facility] Nucleated erythrocytes [Pres ence] in Blood by Automated countOrdered By: Genie Moreno-Rosana on 03-28-2025 Nucleated RBC Auto Ql (Bld) 0.1 /100{WBC} 0-0.5 [facility] PET tumor init tx strat sb-m ton 03-28-2025 PET tumor init tx strat sb-mt [facility] Main [place] [address] [place], [place] [id number] Nuclear Medicine Report Signed Patient: Cari Hale MR#: [id number] 952 : 1965 Acct:[id number] Age/Sex: 60 / F ADM Date: 03/28/25 Loc: Room: Type: [facility] Attending Dr: Genie Bass MD Copies to: Jesse Martínez II, MD Mhd Yaser Al-Marrawi, MD Ordering Provider: Genie Bass MD Date of Service: 03/28/25 PET/PET tumor init tx strat sb-mt: staging PET tumor init tx strat sb-mt 03/28/2025 9:52 AM SIGNS AND SYMPTOMS: Non-small cell lung cancer, follow-up PROTOCOL: PET images were obtained from skull base to mid thigh after intravenous radiotracer administration. Low-dose CT was performed. After attenuation correction of PET images fused PET CT images were generated and reconstructed in axial, sagittal, and coronal planes. COMPARISON: 08/16/2024 RADIOPHARMACEUTICAL: 11.055 mCi of intravenous fluorine 18 FDG. Blood glucose: 154 mg/dL FINDINGS: There is a 5 mm FDG avid lymph node within the left level 2A with a maximum SUV of 4.9 unchanged. There is a similar 5 mm intraparotid lymph node posteriorly on the right with a maximum SUV of 2.7. This is unchanged. Post surgical changes are noted consistent with prior wedge resection. Calcifications are noted extending towards the left infrahilar region with increased FDG accumulation along the deep margin and a maximum SUV of 2.8. Residual tumor is not excluded. However, this is most likely postsurgical. There is increased radiotracer accumulation along the anterior and lateral aspect of the left sixth rib with abnormal radiotracer accumulation and a maximum SUV of 2.5 suspicious for bony metastatic disease. This is new when compared to the prior exam. No additional abnormal foci radiotracer accumulation are noted. There is radiotracer contamination along the skin surface in the left flank. There is physiologic radiotracer accumulation within the brain, salivary glands, myocardium, liver, spleen, kidneys, ureters, bladder, and bowel. There is a nonobstructing left-sided renal stone which is unchanged. There is opacification of the right maxillary sinus. PET/PET tumor init tx strat sb-mt IMPRESSION: There is a 5 mm FDG avid lymph node within the left level 2A with a maximum SUV of 4.9 unchanged. There is a similar 5 mm intraparotid lymph node posteriorly on the right with a maximum SUV of 2.7. This is unchanged. Post surgical changes are noted consistent with prior wedge resection. Calcifications are noted extending towards the left infrahilar region with increased FDG accumulation along the deep margin and a maximum SUV of 2.8. Residual tumor is not excluded. However, this is most likely postsurgical. There is increased radiotracer accumulation along the anterior and lateral aspect of the left sixth rib with abnormal radiotracer accumulation and a maximum SUV of 2.5 suspicious for bony metastatic disease. This is new when compared to the prior exam. Impression dictated by: Jesse Martínez M.D. 03/28/2025 12:50 PM Dictation Location: [place] [address] Transcribed By: [facility] 03/28/25 1250 Dictated By: Jesse Martínez II, MD 03/28/25 1238 Signed By: 03/28/25 1250 Normal [facility] Platelet mean volume [Entiti c volume] in Blood by Automated countOrdered By: Genie Bass on 03-28-2025 Platelet mean volume (Bld) [Entitic vol] 7.2 fL Normal 6.3-10.7 [facility] Comment on above: Performed By: #### C BC, CMP #### [facility] [address] [place] [address] [place] Platelets [#/volume] in Bloo d by Automated countOrdered By: Genie Bass on 03-28-2025 Platelets (Bld) [#/Vol] 369 10*3/uL Normal 150-450 [facility] Comment on above: Performed By: #### C BC, CMP #### [facility] [address] [place] [id number] [place] Potassium [Moles/volume] in Serum or PlasmaOrdered By: Genie Bass on 03-28-2025 Potassium [Moles/Vol] See comment 3.5-5.1 [facility] Comment on above: Specimen hemolyzed, redraw requested Protein [Mass/volume] in Ser um or PlasmaOrdered By: Genie Bass on 03-28-2025 Protein [Mass/Vol] See comment 6.4-8.9 [facility] Comment on above: Specimen hemolyzed, redraw requested Serum or plasma albumin/glob ulin mass ratioOrdered By: ashley Bass on 03-28-2025 Albumin/Globulin [Mass ratio] See comment [facility] Comment on above: Specimen hemolyzed, redraw requested Serum or plasma anion gap de terminationOrdered By: Genie Bass on 03-28-2025 Anion gap [Moles/Vol] See comment 6.0-15.0 [facility] Comment on above: Specimen hemolyzed, redraw requested Sodium [Moles/volume] in Ser um or PlasmaOrdered By: ashley Bass on 03-28-2025 Sodium [Moles/Vol] See comment 136-145 [facility] Comment on above: Specimen hemolyzed, redraw requested Urea nitrogen [Mass/volume] in Serum or PlasmaOrdered By: Genie Bass on 03-28-2025 Urea nitrogen [Mass/Vol] 10 mg/dL Normal 02-23 [facility] Comment on above: Performed By: #### C , CMP #### [facility] [address] Glucose Poct Glucometerson 0 03-26-2025 Glucose [Mass/Vol] 341 mg/dL Normal [facility] Comment on above: Result Comment: [facility] Glucose Reference Range is dependent on time and content of last meal. Glucose of more than 200 mg/dL in a nonstressed, ambulatory subject supports the diagnosis of Diabetes Mellitus. PERFORMED BY: [facility] [address] [place] [address] PATHOLOGIST SENIOR SOFTWARE ENGINEER DIMITRIOS KRUSE M.D. Performed By: #### G [facility] #### Point of Care testing , MR head/brain wo/w conon MR head/brain wo/w con [facility] Main [place] [address] [place], [place] [id number] MRI Report Signed Patient: Cari Hale MR#: [id number] 952 : 1965 Acct:[id number] Age/Sex: 60 / F ADM Date: 03/26/25 Loc: MR Room: Type: [facility] Attending Dr: Genie Bass MD Copies to: [...] left cerebellar hemisphere. Impression dictated by: Jesse Martínez M.D. 03/26/2025 10:13 PM Dictation Location: [place] [address] Transcribed By: [facility] 03/26/252212 Dictated By: Jesse Martínez II, MD 03/26/252204 Signed By: 03/26/252212 Normal [facility] Complete Blood Count Auto Di ffon 03-15-2025 Basophils (Bld) [#/Vol] 0.1 10*3/uL Normal 0.0-0.2 [facility] Comment on above: Result Comment: PERF ORMED BY: [place] [address] PATHOLOGIST SENIOR SOFTWARE ENGINEER DIMITRIOS KRUSE M.D. Performed By: #### C BC, CMP #### [address] Basophils/100 WBC (Bld) 0.6 % Normal . T [facility] Comment on above: Performed By: #### C BC, CMP #### [place] [address] [place] Eosinophils (Bld) [#/Vol] 0.2 10*3/uL Normal 0.0-0.45 [facility] Comment on above: Performed By: #### C BC, CMP #### [address] Eosinophils/100 WBC (Bld) 1.6 % Normal . [facility] Comment on above: Performed By: #### C BC, CMP #### [address] Erythrocyte distribution width (RBC) [Ratio] 14.0 % Normal 11.9-15.3 [facility] Comment on above: Performed By: #### C BC, CMP #### [address] Hematocrit (Bld) [Volume fraction] 36.2 % Normal 34.0-46.4 [facility] Comment on above: Performed By: #### C BC, CMP #### [facility] [address] Hemoglobin (Bld) [Mass/Vol] 11.7 g/dL Low 11.8-15.4 [facility] Comment on above: Performed By: #### C BC, CMP #### [address] Lymphocytes (Bld) [#/Vol] 2.8 10*3/uL Normal 1.00-4.8 [facility] Comment on above: Performed By: #### C BC, CMP #### [address] Lymphocytes/100 WBC (Bld) 24.3 % Normal . [facility] Comment on above: Performed By: #### C BC, CMP #### [address] MCH (RBC) [Entitic mass] 31.0 pg Normal 24.7-34.3 [facility] Comment on above: Performed By: #### C BC, CMP #### [address] MCV (RBC) [Entitic vol] 95.6 fL Normal 80-100 [facility] Comment on above: Performed By: #### C BC, CMP #### [address] Mean Corpuscular HGB Conc 32.4 g/dL Normal 32.0-35.0 [facility] Comment on above: Performed By: #### C BC, CMP #### [address] Monocytes (Bld) [#/Vol] 0.9 10*3/uL High 0.0-0.8 [facility] Comment on above: Performed By: #### C BC, CMP #### [address] Monocytes/100 WBC (Bld) 7.9 % Normal . [facility] Comment on above: Performed By: #### C BC, CMP #### [facility] [address] [place] [address] [place] Neutrophils (Bld) [#/Vol] 7.5 10*3/uL Normal 1.8-7.7 [facility] Comment on above: Performed By: #### C BC, CMP #### [facility] [address] [place] [id number] [place] Neutrophils/100 WBC (Bld) 65.6 % Normal . [facility] Comment on above: Performed By: #### C BC, CMP #### [facility] [address] [place] [address] [place] NRBC% 0.1 /100{WBC} Normal 0-0.5 [facility] Comment on above: Performed By: #### C BC, CMP #### [place] [id number] [facility] Platelet mean volume (Bld) [Entitic vol] 7.3 fL Normal 6.3-10.7 [facility] Comment on above: Performed By: #### C BC, CMP #### [facility] [address] [place] [address] [place] Platelets (Bld) [#/Vol] 365 10*3/uL Normal 150-450 [facility] Comment on above: Performed By: #### C BC, CMP #### [place] [id number] [place] RBC (Bld) [#/Vol] 3.79 10*6/uL Normal 3.60-5.00 [facility] Comment on above: Performed By: #### C BC, CMP #### [facility] [address] [place] [id number] [place] WBC (Bld) [#/Vol] 11.4 10*3/uL Normal 3.8-11.6 [facility] Comment on above: Performed By: #### C BC, CMP #### [place] [id number] [place] White Blood Count 11.4 [CFU]/mL Normal 3.8-11.6 [facility] Comment on above: Performed By: #### C BC, CMP #### [address] Comprehensive Metabolic Pane jb 03-15-2025 Albumin [Mass/Vol] 4.0 g/dL Normal 3.5-5.7 [facility] Comment on above: Performed By: #### C BC, CMP #### [address] Albumin/Globulin [Mass ratio] 1.5 {ratio} Normal [facility] Comment on above: Performed By: #### C BC, CMP #### [address] ALP [Catalytic activity/Vol] 98 U/L Normal 34-104 [facility] Comment on above: Performed By: #### C BC, CMP #### [address] ALT [Catalytic activity/Vol] 19 U/L Normal 7-52 [facility] Comment on above: Performed By: #### C BC, CMP #### [address] Anion gap [Moles/Vol] 15.4 mmol/L High 6.0-15.0 [facility] Comment on above: Performed By: #### C BC, CMP #### [address] AST [Catalytic activity/Vol] 26 U/L Normal 13-39 [facility] Comment on above: Performed By: #### C BC, CMP #### [place] [address] [place] Bilirubin [Mass/Vol] 0.5 mg/dL Normal 0.3-1.0 [facility] Comment on above: Performed By: #### C BC, CMP #### [address] Calcium [Mass/Vol] 8.8 mg/dL Normal 8.6-10.3 [facility] Comment on above: Performed By: #### C BC, CMP #### [address] Chloride [Moles/Vol] 97 mmol/L Low 98-107 [facility] Comment on above: Performed By: #### C BC, CMP #### [address] CO2 [Moles/Vol] 26.2 mmol/L Normal 21.0-31.0 [facility] Comment on above: Performed By: #### C BC, CMP #### [address] Creatinine [Mass/Vol] 0.97 mg/dL Normal 0.60-1.20 [facility] Comment on above: Performed By: #### C BC, CMP #### [address] Creatinine Clr Calc Pharmacy 51.95 Normal [facility] Comment on above: Result Comment: PERF ORMED BY: [place] [address] PATHOLOGIST SENIOR SOFTWARE ENGINEER DIMITRIOS KRUSE M.D. Performed By: #### C BC, CMP #### [address] GFR/1.73 sq M.predicted MDRD (S/P/Bld) [Vol rate/Area] mL/min/{1.73_m2} Normal [facility] [facility] Group Comment on above: Performed By: #### C BC, CMP #### [address] Globulin (S) [Mass/Vol] 2.6 g/dL Normal T he [facility] Comment on above: Performed By: #### C BC, CMP #### [address] Glucose [Mass/Vol] 340 mg/dL High 70-100 The [facility] Comment on above: Result Comment: [place] Glucose Reference Range is dependent on time and content of last meal. Glucose of more than 200 mg/dL in a nonstressed, ambulatory subject supports the diagnosis of Diabetes Mellitus. ADA recommended reference range Performed By: #### C BC, CMP #### [facility] [address] Potassium [Moles/Vol] 4.6 mmol/L Normal 3.5-5.1 The [facility] Comment on above: Performed By: #### C BC, CMP #### [address] Protein [Mass/Vol] 6.6 g/dL Normal 6.4-8.9 The [facility] Comment on above: Performed By: #### C BC, CMP #### [address] Sodium [Moles/Vol] 134 mmol/L Low 136-145 The [facility] Comment on above: Performed By: #### C BC, CMP #### [address] Urea nitrogen [Mass/Vol] 10 mg/dL Normal 7-25 The [facility] Comment on above: Performed By: #### C BC, CMP #### [address] SEGMENTAL BLOOD PRESSUREon 0 02-24-2025 [place] [address] Cardiology Report Signed Patient: CARI HALE MR#: [id number] : 1965 Acct:[id number] Age/Sex: 60 / F ADM Date: 02/23/25 Loc: CARD Attending Dr: Eleanor Phelps M.D. Ordering Physician: Eleanor Phelps M.D. Date of Service: 02/23/25 Procedure(s): CA segmental UE or LE JACE Accession Number(s): [id number] cc: RENATE DIALLO Mohamed M.D. 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 Interpretive Statements [...] 02/24/25 0841 02/24/25 0841 DD/ 1416 TD/TT: Tattoo Artist: [facility] Radiology, Radiologist, - 02/24/2025 [place] [address] Cardiology Report Signed Patient: CARI HALE MR#: [id number] : 1965 Acct:[id number] Age/Sex: 60 / F ADM Date: 02/23/25 Loc: CARD Attending Dr: Eleanor Phelps M.D. Ordering Physician: Eleanor Phelps M.D. Date of Service: 02/23/25 Procedure(s): CA segmental UE or LE JACE Accession Number(s): [id number] cc: RENATE DIALLO Mohamed M.D. 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 Interpretive Statements [...] 02/24/25 0841 02/24/25 0841 DD/ 1416 TD/TT: Tattoo Artist: [employer] SEGMENTAL BLOOD PRESSUREOrde red By: Radiologist Radiology on 02-24-2025 [facility]: SEGMENTAL BLOOD PRESSUREon 0 02-23-2025 Radiology Study observation (narrative) [facility] [employer] Web Pain Mgt Drug Panel, Hi Res, Uron 01-14-2025 6-acetylmorphine (cutoff 20 ng/mL) Not detected Normal [facility] Comment on above: Result Comment: INTE RPRETIVE INFORMATION:6-acetylmorphine, U Positive Cutoff: 20 ng/mL Methodology: Mass Spectrometry 7-Aminoclonazepam (cutoff 40 ng/mL) Not detected Normal [facility] Comment on above: Result Comment: INTE RPRETIVE INFORMATION:7-Aminoclonazepam, U Positive Cutoff: 40 ng/mL Methodology: Mass Spectrometry Jautf-DM-Ryzhntvqjk (cutoff 20 ng/mL) Present Normal [facility] Comment on above: Result Comment: INTE RPRETIVE INFORMATION:Nzzis-VX-Cjrcwgthoq, U Positive Cutoff: 20 ng/mL Methodology: Mass Spectrometry Bzekq-UQ-Mmnxeqgtq (cutoff 20 ng/mL) Not detected Normal [facility] Comment on above: Result Comment: INTE RPRETIVE INFORMATION:Avptv-GD-Yhgaytazf, U Positive Cutoff: 20 ng/mL Methodology: Mass Spectrometry Alprazolam (cutoff 40 ng/mL) Present Normal [facility] Comment on above: Result Comment: INTE RPRETIVE INFORMATION:Alprazolam, U Positive Cutoff: 40 ng/mL Methodology: Mass Spectrometry Amphetamine (cutoff 100 ng/mL) Not detected Normal [facility] Comment on above: Result Comment: INTE RPRETIVE INFORMATION:Amphetamine, U Positive Cutoff: 50 ng/mL Methodology: Mass Spectrometry Barbiturates (cutoff 200 ng/mL) Negative [facility] Comment on above: Result Comment: Pres umptive negative by immunoassay. Testing by mass spectrometry is available on request. INTERPRETIVE INFORMATION:Barbiturates Screen, U Positive Cutoff: 200 ng/mL Methodology: Immunoassay Benzoylecgonine Ql (U) Negative Normal [facility] Comment on above: Result Comment: Pres umptive negative by immunoassay. Testing by mass spectrometry is available on request. INTERPRETIVE INFORMATION:Cocaine Screen, U Positive Cutoff: 150 ng/mL Methodology: Immunoassay Buprenorphine (cutoff 5 ng/mL) Not detected Normal [facility] Comment on above: Result Comment: INTE RPRETIVE INFORMATION:Buprenorphine, U Positive Cutoff: 5 ng/mL Methodology: Mass Spectrometry Carisoprodol (cutoff 100 ng/mL) Negative [facility] Comment on above: Result Comment: Pres umptive negative by immunoassay. Testing by mass spectrometry is available on request. INTERPRETIVE INFORMATION: Carisoprodol Screen, U Positive Cutoff: 100 ng/mL Methodology: Immunoassay The carisoprodol immunoassay has cross-reactivity to carisoprodol and meprobamate. Clonazepam (cutoff 20 ng/mL) Not detected Normal [facility] Comment on above: Result Comment: INTE RPRETIVE INFORMATION:Clonazepam, U Positive Cutoff: 20 ng/mL Methodology: Mass Spectrometry Codeine (cutoff 40 ng/mL) Not detected Normal [facility] Comment on above: Result Comment: INTE RPRETIVE INFORMATION: Codeine, U Positive Cutoff: 40 ng/mL Methodology: Mass Spectrometry Creatinine, Urine 100.6 mg/dL Normal 20.0-400.0 [facility] Diazepam (cutoff 50 ng/mL) Not detected [facility] Comment on above: Result Comment: INTE RPRETIVE INFORMATION:Diazepam, U Positive Cutoff: 50 ng/mL Methodology: Mass Spectrometry EER Pain Mgt Drug Panel High Res/EMIT U See Note Normal [facility] Comment on above: Result Comment: Auth orized individuals can access the [employer] Enhanced Report with an [employer] Connect account using the following link. Your local lab can assist you in obtaining the patient report if you don't have a Connect account. [email or web address] by [email or web address] Performed By: [employer] [address] [place] [address] Negative Cutter: Tano Ward MD, PhD CLIA Number: [id number] Ethyl Glucuronide (cutoff 500 ng/mL) PresumptivePOS Normal [facility] Comment on above: Result Comment: Pres umptive positive by immunoassay. Testing by mass spectrometry is available on request. INTERPRETIVE INFORMATION:Ethyl Glucuronide Screen, U Positive Cutoff: 500 ng/mL Methodology: Immunoassay Fentanyl (cutoff 2 ng/mL) Not detected Normal [facility] Comment on above: Result Comment: INTE RPRETIVE INFORMATION:Fentanyl, U Positive Cutoff: 2 ng/mL Methodology: Mass Spectrometry Gabapentin (cutoff 100 ng/mL) Not detected Normal [facility] Comment on above: Result Comment: INTE RPRETIVE INFORMATION:Gabapentin, U Positive Cutoff: 3,000 ng/mL Methodology: Mass Spectrometry Hydrocodone (cutoff 40 ng/mL) Not detected Normal [facility] Comment on above: Result Comment: INTE RPRETIVE INFORMATION:Hydrocodone, U Positive Cutoff: 40 ng/mL Methodology: Mass Spectrometry Hydromorphone (cutoff 40 ng/mL) Not detected Normal [facility] Comment on above: Result Comment: INTE RPRETIVE INFORMATION:Hydromorphone, U Positive Cutoff: 20 ng/mL Methodology: Mass Spectrometry Lorazepam (cutoff 60 ng/mL) Not detected Normal [facility] Comment on above: Result Comment: INTE RPRETIVE INFORMATION:Lorazepam, U Positive Cutoff: 60 ng/mL Methodology: Mass Spectrometry Marijuana Metabolite (cutoff 20 ng/mL) Negative Normal [facility] Comment on above: Result Comment: Pres umptive negative by immunoassay. Testing by mass spectrometry is available on request. INTERPRETIVE INFORMATION: THC (Cannabinoids) Screen, U Positive Cutoff: 50 ng/mL Methodology: Immunoassay MDA (cutoff 200 ng/mL) Not detected Normal [facility] Comment on above: Result Comment: INTE RPRETIVE INFORMATION:MDA, U Positive Cutoff: 200 ng/mL Methodology: Mass Spectrometry MDEA-Vickie (cutoff 200 ng/mL) Not detected Normal [facility] Comment on above: Result Comment: INTE RPRETIVE INFORMATION:MDEA, U Positive Cutoff: 200 ng/mL Methodology: Mass Spectrometry MDMA-Ecstasy (cutoff 200 ng/mL) Not detected Normal [facility] Comment on above: Result Comment: INTE RPRETIVE INFORMATION:MDMA, U Positive Cutoff: 200 ng/mL Methodology: Mass Spectrometry Meperidine metabolite (cutoff 50 ng/mL) Not detected Normal [facility] Comment on above: Result Comment: INTE RPRETIVE INFORMATION:Meperidine metabolite, U Positive Cutoff: 50 ng/mL Methodology: Mass Spectrometry Methadone Ql (U) Negative Normal [facility] Comment on above: Result Comment: Pres umptive negative by immunoassay. Testing by mass spectrometry is available on request. INTERPRETIVE INFORMATION: Methadone Screen, U Positive Cutoff: 150 ng/mL Methodology: Immunoassay Methamphetamine (cutoff 400 ng/mL) Not detected Normal [facility] Comment on above: Result Comment: INTE RPRETIVE INFORMATION:Methamphetamine, U Positive Cutoff: 200 ng/mL Methodology: Mass Spectrometry Methylphenidate (cutoff 100 ng/mL) Not detected Normal [facility] Comment on above: Result Comment: INTE RPRETIVE INFORMATION:Methylphenidate, U Positive Cutoff: 100 ng/mL Methodology: Mass Spectrometry Midazolam (cutoff 20 ng/mL) Not detected Normal [facility] Comment on above: Result Comment: INTE RPRETIVE INFORMATION:Midazolam, U Positive Cutoff: 20 ng/mL Methodology: Mass Spectrometry Morphine (cutoff 20 ng/mL) Not detected Normal [facility] Comment on above: Result Comment: INTE RPRETIVE INFORMATION:Morphine, U Positive Cutoff: 20 ng/mL Methodology: Mass Spectrometry Naloxone (cutoff 100 ng/mL) Not detected Normal [facility] Comment on above: Result Comment: INTE RPRETIVE INFORMATION:Naloxone, U Positive Cutoff: 100 ng/mL Methodology: Mass Spectrometry Norbuprenorphine (cutoff 20 ng/mL) Not detected Normal [facility] Comment on above: Result Comment: INTE RPRETIVE INFORMATION:Norbuprenorphine, U Positive Cutoff: 20 ng/mL Methodology: Mass Spectrometry Nordiazepam (cutoff 50 ng/mL) Not detected Normal [facility] Comment on above: Result Comment: INTE RPRETIVE INFORMATION:Nordiazepam, U Positive Cutoff: 50 ng/mL Methodology: Mass Spectrometry Norfentanyl (cutoff 2 ng/mL) Not detected Normal [facility] Comment on above: Result Comment: INTE RPRETIVE INFORMATION:Norfentanyl, U Positive Cutoff: 2 ng/mL Methodology: Mass Spectrometry Norhydrocodone (cutoff 100 ng/mL) Not detected Normal [facility] Comment on above: Result Comment: INTE RPRETIVE INFORMATION:Norhydrocodone, U Positive Cutoff: 100 ng/mL Methodology: Mass Spectrometry Noroxycodone (cutoff 100 ng/mL) Not detected Normal [facility] Comment on above: Result Comment: INTE RPRETIVE INFORMATION:Noroxycodone, U Positive Cutoff: 100 ng/mL Methodology: Mass Spectrometry Noroxymorphone (cutoff 100 ng/mL) Not detected [facility] Comment on above: Result Comment: INTE RPRETIVE INFORMATION:Noroxymorphone, U Positive Cutoff: 100 ng/mL Methodology: Mass Spectrometry Oxazepam (cutoff 50 ng/mL) Not detected [facility] Comment on above: Result Comment: INTE RPRETIVE INFORMATION:Oxazepam, U Positive Cutoff: 50 ng/mL Methodology: Mass Spectrometry Oxycodone (cutoff 40 ng/mL) Not detected [facility] Comment on above: Result Comment: INTE RPRETIVE INFORMATION:Oxycodone, U Positive Cutoff: 40 ng/mL Methodology: Mass Spectrometry Oxymorphone (cutoff 40 ng/mL) Not detected [facility] Comment on above: Result Comment: INTE RPRETIVE INFORMATION:Oxymorphone, U Positive Cutoff: 40 ng/mL Methodology: Mass Spectrometry Pain Management Drug Panel See Below [facility] Comment on above: Result Comment: Meth odology: [...] developed and its performance characteristics determined by [employer]. It has not been cleared or approved by the [place] Food and Drug Administration. This test was performed in a CLIA certified laboratory and is intended for clinical purposes. PCP (cutoff 25 ng/mL) Negative Normal [facility] Comment on above: Result Comment: Pres umptive negative by immunoassay. Testing by mass spectrometry is available on request. INTERPRETIVE INFORMATION:Phencyclidine Screen, U Positive Cutoff: 25 ng/mL Methodology: Immunoassay Phentermine (cutoff 100 ng/mL) Not detected Normal [facility] Comment on above: Result Comment: INTE RPRETIVE INFORMATION:Phentermine, U Positive Cutoff: 100 ng/mL Methodology: Mass Spectrometry Pregabalin (cutoff 100 ng/mL) Not detected Normal [facility] Comment on above: Result Comment: INTE RPRETIVE INFORMATION:Pregabalin, U Positive Cutoff: 3,000 ng/mL Methodology: Mass Spectrometry Tapentadol (cutoff 100 ng/mL) Not detected Normal [facility] Comment on above: Result Comment: INTE RPRETIVE INFORMATION:Tapentadol, U Positive Cutoff: 100 ng/mL Methodology: Mass Spectrometry Mucackhhjm-l-Tdxk (cutoff 200 ng/mL) Not detected Normal [facility] Comment on above: Result Comment: INTE RPRETIVE INFORMATION:Zgvgngrwyn-o-Iibh, U Positive Cutoff: 200 ng/mL Methodology: Mass Spectrometry Temazepam (cutoff 50 ng/mL) Not detected Normal [facility] Comment on above: Result Comment: INTE RPRETIVE INFORMATION:Temazepam, U Positive Cutoff: 50 ng/mL Methodology: Mass Spectrometry Tramadol (cutoff 200 ng/mL) PresumptivePOS Normal [facility] Comment on above: Result Comment: Pres umptive positive by immunoassay. Testing by mass spectrometry is available on request. INTERPRETIVE INFORMATION:Tramadol Screen, U Positive Cutoff: 100 ng/mL Methodology: Immunoassay Zolpidem (cutoff 20 ng/mL) Not detected Normal [facility] Comment on above: Result Comment: INTE RPRETIVE INFORMATION:Zolpidem, U Positive Cutoff: 20 ng/mL Methodology: Mass Spectrometry UR Microalbumin/Creatinine R atio Randomon 01-10-2025 Microalbumin/creatinine Ratio 388.4 mg/G Critically high 0.0-30.0 [facility] Comment on above: Performed By: #### U MACR #### [facility] [address] [place] [address] UR Creatinine Random 98.6 mg/dL Normal Not Establ [facility] Comment on above: Performed By: #### U MACR #### [facility] [address] [place] [address] UR Microalbumin Random 38.30 mg/dL Critically high Not Est abl [facility] Comment on above: Performed By: #### U MACR #### [facility] [address] [place] [address] Pathology study report docum entOrdered By: Maite Alexis on 12-14-2024 Pathology study [facility] Other Phone: SURGICAL PATHOLOGY REFERENCE LAB CONSULTon 12-14-2024 AP DISCLAIMER Normal [facility] Comment on above: Order Comment: Speci men Type: FORMALIN-FIXED PARAFFIN-EMBEDDED TISSUE SPECIMEN Ordering Facility: [facility] Address: [address] [place] [address] [place] [address] Result Comment: Carmen butler Developed Test (LDT) Disclaimer: Performance characteristics of immunohistochemical, immunofluorescent, and chromogenic in-situ hybridization tests have been determined by the performing laboratory within [facility] Pathology and Laboratory Medicine Department ([facility], [facility], [facility], [facility], [facility], [facility], or [facility]) in a manner consistent with CLIA requirements. One or more of these tests may not have been cleared or approved by the FDA. [facility]PLM is regulated under CLIA as qualified to perform high-complexity testing. These tests are used for clinical purposes. These should not be regarded as investigational or for research. Positive and negative controls stain appropriately. Performed By: #### L [id number] #### [facility] CLIA [id number] [address] [place] [address] CASE REPORT Normal [facility] Comment on above: Order Comment: Speci men Type: FORMALIN-FIXED PARAFFIN-EMBEDDED TISSUE SPECIMEN Ordering Facility: [facility] Address: [address] [place], [place] [address] [id number] Result Comment: Surg [facility] Pathology Report Case: [id number] Authorizing Provider: Maite Alexis MD Collected: 12/14/2024 04:52 PM Ordering Location: [facility] Received: 12/14/2024 04:51 PM [facility] Pathologist: Daron Carroll MD Specimen: Block(s) and/or Slide(s), 11 SLIDES & 1 BLOCK [id number]; A3 Performed By: #### L [id number] #### [facility] CLIA [id number] [address] [place] [address] CLINICAL HISTORY CONSULT REQUESTED Normal [facility] Comment on above: Order Comment: Speci men Type: FORMALIN-FIXED PARAFFIN-EMBEDDED TISSUE SPECIMEN Ordering Facility: [facility] Address: [address] [place], [place] [address] [phone] Performed By: #### L [id number] #### [facility] CLIA [id number] [address] [place] [address] DIAGNOSIS COMMENT Normal [facility] Comment on above: Order Comment: Speci men Type: FORMALIN-FIXED PARAFFIN-EMBEDDED TISSUE SPECIMEN Ordering Facility: [facility] Address: [address] [place], [place] [address] [place] [address] Result Comment: This is a case of [...] contact us, . Performed By: #### L [id number] #### [facility] CLIA [id number] [address] [place] [address] FINAL DIAGNOSIS Normal [facility] Comment on above: Order Comment: Speci men Type: FORMALIN-FIXED PARAFFIN-EMBEDDED TISSUE SPECIMEN Ordering Facility: [facility] Address: [address] [place] [address] Result Comment: Lung , left upper lobe, wedge resection ([id number] A1-A7; 12/08/2024): -Invasive poorly differentiated adenocarcinoma (see comment). 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 Lymph node, level 5, resection ([id number] C1; 12/08/2024): -Rare atypical cells. at 1603 EDT Performed By: #### L [id number] #### [facility] CLIA [id number] [address] [place] [address] FINAL PERFORMING LAB Normal [facility] Comment on above: Order Comment: Speci men Type: FORMALIN-FIXED PARAFFIN-EMBEDDED TISSUE SPECIMEN Ordering Facility: [facility] Address: [address] [place] [place] [address] Result Comment: Diag nostic interpretation performed at: [facility], [address] [place] [address], [place] [id number] CLIA# [id number] Negative Cutter: Jonah Guzman MD Performed By: #### L [id number] #### [facility] CLIA [id number] [address] [place] [address] [place] ECG 12 lead ECGon 12-10-2024 ECG 12 lead ECG [address] [address] Electrocardiograph Report Signed Patient: Cari Hale MR#: [id number] : 1965 Acct:[id number] Age/Sex: 59 / F ADM Date: 12/08/24 Loc: 4N Room: [address] [place] [address] Type: DIS IN Attending Dr: Mac Turner [...] wave abnormality Abnormal ECG Confirmed by Aida aRmos ([id number]) on 12/10/2024 10:06:16 PM Referred By: Electronically Signed By: Aida Ramos Transcribed By: MUS Signed By Aida Ramos MD 2205 Normal The [facility] X-ray reportOrdered By: Jesse Martínez on 12-10-2024 Study report [address] [address] XRay Report Signed Patient: Cari Hale MR#: [id number] : 1965 Acct:[id number] Age/Sex: 59 / F ADM Date: 5 Loc: 4N Room: [address] [place] [address] Type: ADM IN Attending Dr: Mac Turner [...] Martínez M.D. 12/10/2024 2:41 PM Dictation Location: [facility]--17 Transcribed By: BLANCA 12/10/24 1441 Dictated By: Jesse Martínez II, MD 12/10/24 1440 Signed By: 12/10/24 144 [facility] Work Phone: Study report [facility] Main [place] [address] [place] [address] XRay Report Signed Patient: Cari Hale MR#: [id number] : 1965 Acct:[id number] Age/Sex: 59 / F ADM Date: 5 Loc: Room: [address] [place] [address] Type: ADM IN Attending Dr: Mac Turner [...] MD 12/10/24 1136 Signed By: 12/10/24 1137 [facility] Work Phone: XR chest 1V portableon 12-10 XR chest 1V portable [facility] Main [address] [address] XRay Report Signed Patient: Cari Hale MR#: [id number] : 1965 Acct:[id number] Age/Sex: 59 / F ADM Date: 12/08/24 Loc: Room: [address] [place] [address] Type: ADM IN Attending Dr: Mac Turner [...] II, MD 12/10/24 1440 Signed By: 12/10/24 144 Normal [facility] XR chest 1V portable [facility] Main [address] [address] XRay Report Signed Patient: Cari Hale MR#: [id number] : 1965 Acct:[id number] Age/Sex: 59 / F ADM Date: 12/08/24 Loc: 4N Room: [id number] Type: ADM IN Attending Dr: Mac Turner [...] Martínez M.D. 12/10/2024 11:37 AM Dictation Location: [place] [address] Transcribed By: [facility] 12/10/24 1137 Dictated By: Jesse Martínez II, MD 12/10/24 1136 Signed By: 12/10/24 1137 Normal [facility] Glucose Glucometer (BldC) [M ass/Vol]Ordered By: Mac Turner on 12-09-2024 Glucose [Mass/Vol] Capillary blood glucose measurement by glucometer (mass/volume) [facility] Comment on above: Random Glucose Refer ence Range is dependent on time and content of last meal. Glucose of more than 200 mg/dL in a nonstressed, ambulatory subject supports the diagnosis of Diabetes Mellitus. Glucose Poct Glucometerson 0 12-09-2024 Glucose [Mass/Vol] 195 mg/dL Normal [facility] Comment on above: Result Comment: [place] om Glucose Reference Range is dependent on time and content of last meal. Glucose of more than 200 mg/dL in a nonstressed, ambulatory subject supports the diagnosis of Diabetes Mellitus. PERFORMED BY: [place] [address] PATHOLOGIST SENIOR SOFTWARE ENGINEER ELEANOR HERNÁNDEZ M.D. Performed By: #### C BC, [facility] #### [place] [id number] [facility] X-ray reportOrdered By: Jesse Martínez on 12-09-2024 Study report [facility] [place] [address] XRay Report Signed Patient: Cari Hale MR#: [id number] : 1965 Acct:[id number] Age/Sex: 59 / F ADM Date: 5 Loc: Room: [id number] Type: ADM IN Attending Dr: Mac Turner [...] Martínez M.D. 12/09/2024 12:54 PM Dictation Location: [facility]-- Transcribed By: [facility] 12/09/24 1254 Dictated By: Jesse Martínez II, MD 12/09/24 1259 Signed By: 12/09/24 1254 [facility] Work Phone: XR chest 1V portableon 12-09 XR chest 1V portable [facility] Main [place] [address] [place] [id number] XRay Report Signed Patient: Cari Hale MR#: [id number] : 1965 Acct:[id number] Age/Sex: 59 / F ADM Date: 12/08/24 Loc: 4 Room: [address] [place] [address] Type: ADM IN Attending Dr: Mac Turner [...] Martínez M.D. 12/09/2024 12:54 PM Dictation Location: [place] [address] Transcribed By: [facility] 12/09/24 1254 Dictated By: Jesse Martínez II, MD 12/09/24 1250 Signed By: 12/09/24 1254 Normal [facility] ABO/Rh Retypeon 12-08-2024 ABO/RH Recheck Result Positive Normal [facility] Comment on above: Result Comment: PERF ORMED BY: [address] [place] [address] PATHOLOGIST SENIOR SOFTWARE ENGINEER ELEANOR HERNÁNDEZ M.D. Glucose Poct Glucometerson 0 12-08-2024 Commemt1 Glu2: Cleaned Meter Normal The [facility] Comment on above: Result Comment: PERF ORMED BY: [address] [place] [address] PATHOLOGIST SENIOR SOFTWARE ENGINEER ELEANOR HERNÁNDEZ M.D. Performed By: #### G LULS #### Point of Care testing , Glucose [Mass/Vol] 405 mg/dL Off scale high Th e Pending [facility] Comment on above: Result Comment: [place] om Glucose Reference Range is dependent on time and content of last meal. Glucose of more than 200 mg/dL in a nonstressed, ambulatory subject supports the diagnosis of Diabetes Mellitus. Performed By: #### G LULS #### Point of Care testing , Commemt1 Normal [facility] Comment on above: Result Comment: Glu2 : Will Repeat Test PERFORMED BY: [place] [address] PATHOLOGIST SENIOR SOFTWARE ENGINEER ELEANOR HERNÁNDEZ M.D. Performed By: #### G LULS #### Point of Care testing , Glucose [Mass/Vol] 388 mg/dL Normal The [facility] Comment on above: Result Comment: [place] om Glucose Reference Range is dependent on time and content of last meal. Glucose of more than 200 mg/dL in a nonstressed, ambulatory subject supports the diagnosis of Diabetes Mellitus. Performed By: #### G LULS #### Point of Care testing , Commemt1 Normal The [facility] Comment on above: Result Comment: Glu2 : WILL NOTIFY DR/RN Performed By: #### C BC, CMP #### [facility] [address] [place] [address] Commemt2 Cleaned Meter Normal The [facility]ending [facility] Comment on above: Result Comment: PERF ORMED BY: [place] [address] PATHOLOGIST SENIOR SOFTWARE ENGINEER ELEANOR HERNÁNDEZ M.D. Performed By: #### C BC, CMP #### [facility] [address] [place] [address] Glucose [Mass/Vol] 458 mg/dL Off scale high Th e Pending [facility] To [facility] Comment on above: Result Comment: [place] om Glucose Reference Range is dependent on time and content of last meal. Glucose of more than 200 mg/dL in a nonstressed, ambulatory subject supports the diagnosis of Diabetes Mellitus. Performed By: #### C BC, CMP #### [address] Commemt1 Glu2: Cleaned Meter Normal The [facility] Comment on above: Result Comment: PERF ORMED BY: [place] [address] PATHOLOGIST SENIOR SOFTWARE ENGINEER ELEANOR HERNÁNDEZ M.D. Performed By: #### C BC, CMP #### [address] Glucose [Mass/Vol] 178 mg/dL Normal The [facility] Comment on above: Result Comment: [facility] Glucose Reference Range is dependent on time and content of last meal. Glucose of more than 200 mg/dL in a nonstressed, ambulatory subject supports the diagnosis of Diabetes Mellitus. Performed By: #### C BC, CMP #### [address] HCG ( test) Zeeshan ramirez Ql (U)Ordered By: Tom Sunshine on 12-08-2024 HCG ( test) Ql (U) Urine human chorionic gonadotropin (hCG) detection by immunoassay [facility] HCG,Urineon 12-08-2024 Beta HCG ( test) Ql (U) Negative Normal [facility] Comment on above: Result Comment: PERF ORMED BY: [place] [address] PATHOLOGIST SENIOR SOFTWARE ENGINEER ELEANOR HERNÁNDEZ M.D. Performed By: #### U HCG #### [place] [id number] [facility] Jb 12-08-2024 L -- ---- Specimen: [id number] Received: 12/08/24 Status: KAYLAN Heller Num: [id number] Spec Type: Surgical Subm Dr: Mac Turner MD Tissues: A Lung - Wedge Biopsy (L UPPER LOBE WEDGE) B Lymph Node - Biopsy (Needle or Incisional) (LEVEL 7 LYMPH NODE) C Lymph Node - Biopsy (Needle or Incisional) (LEVEL 5 LYMPH NODE) Procedures: , Gross/Micro L5, Gross/Micro L4/2 ---- Age/ Patient Sex Location Account Attending Physician ---- Cari Hale 59/F 4N [id number] Mac Turner MD ---- SPEC NUM: [id number] RECD: 12/08/24 STATUS: KAYLAN HELLER NUM: [id number] NIKI: 12/08/24- SUBM DR: Mac Turner MD ENTERED: 12/08/24-1036 [facility] DR: GRISEL TYPE: Surgical DEPT: S ENTERED BY: [id number] RECV BY: [id number] ORDERED: , Gross/Micro L5, Gross/Micro L4/2 ORDERED: [...] Largest Metastatic Deposit: 3 mm ---- Specimen: [id number] Received: 12/08/24 Status: KAYLAN Heller Num: [id number] Spec Type: Surgical Subm Dr: Mac Turner MD Tissues: A Lung - Wedge Biopsy (L UPPER LOBE WEDGE) B Lymph Node - Biopsy (Needle or Incisional) (LEVEL 7 LYMPH NODE) C Lymph Node - Biopsy (Needle or Incisional) (LEVEL 5 LYMPH NODE) Procedures: , Gross/Micro L5, Gross/Micro L4/2 ---- Patient: HaleCari [id number] (Continued) ---- Specimen: [id number] Received: 12/08/24 (Continued) Signed (signature on file) Maite Alexis MD 12/14/24 1418 ---- Specimen: [id number] Received: 12/08/24 Status: KAYLAN Heller Num: [id number] Spec Type: Surgical Subm Dr: Mac Turner MD Tissues: A Lung - Wedge Biopsy (L UPPER LOBE WEDGE) B Lymph Node - Biopsy (Needle or Incisional) (LEVEL 7 LYMPH NODE) C Lymph Node - Biopsy (Needle or Incisional) (LEVEL 5 LYMPH NODE) Procedures: , Gross/Micro L5, Gross/Micro L4/2 ---- Patient: Cari Hale [id number] (Continued) ---- Specimen: [id number] Received: 12/08/24 (Continued) Distant Site(s) Involved: Not applicable Pathology [...] MD 03/23/25 0834 ---- Supplemental Report Addendum 8 Entered: 03/30/25-4124 To issue EGFR Gene Mutation Analysis from [employer]. Interpretation: Negative for EGFR mutation. Addendum Signed (sign (more content not included)... Normal [facility] No Panel InformationOrdered By: Mac Turner on 12-08-2024 Bedside Glucose Comment Glu2: cleaned meter [facility] Bedside Glucose #2 Comment Cleaned meter [facility] X-ray reportOrdered By: Rodriguez Mondragon on 12-08-2024 Study report [facility] Main [address] [address] XRay Report Signed Patient: Cari Hale MR#: [id number] : 1965 Acct:[id number] Age/Sex: 59 / F ADM Date: 5 Loc: Room: [address] [place] [address] Type: ADM IN Attending Dr: Mac Turner [...] Jr., D.OKamar 12/08/2024 11:44 AM Dictation Location: [place] [address] Transcribed By: [facility] 12/08/24 1144 Dictated By: Ozzy Mondragon Jr, DO 12/08/24 1143 Signed By: 12/08/24 1144 [facility] XR chest 1V portableon 12-08 XR chest 1V portable [address] [address] XRay Report Signed Patient: Cari Hale MR#: [id number] 952 : 1965 Acct:[id number] Age/Sex: 59 / F ADM Date: 12/08/24 Loc: 4C Room: [address] [place] [address] Type: ADM IN Attending Dr: Mac Turner [...] Jr., D.O. 12/08/2024 11:44 AM Dictation Location: [place] [address] Transcribed By: [facility] 12/08/24 1144 Dictated By: Ozzy Mondragon Jr, DO 12/08/24 1143 Signed By: 12/08/24 1144 Normal [facility] Basic Metabolic Panelon Anion gap [Moles/Vol] 14.0 mmol/L Normal 6.0-15.0 Th e Pending Sale To [facility] Comment on above: Performed By: #### C BC, CMP #### [address] Calcium [Mass/Vol] 9.5 mg/dL Normal 8.6-10.3 The [facility]ending [facility] Comment on above: Result Comment: PERF ORMED BY: [place] [address] PATHOLOGIST SENIOR SOFTWARE ENGINEER ELEANOR HERNÁNDEZ M.D. Performed By: #### C BC, CMP #### [address] Chloride [Moles/Vol] 99 mmol/L Normal 98-107 The [facility] Comment on above: Performed By: #### C BC, CMP #### [place] [address] [place] CO2 [Moles/Vol] 26.1 mmol/L Normal 21.0-31.0 The [facility] Comment on above: Performed By: #### C BC, CMP #### [place] [address] [place] Creatinine [Mass/Vol] 0.90 mg/dL Normal 0.60-1.20 The [facility]ending [facility] Comment on above: Performed By: #### C BC, CMP #### [place] [address] [place] GFR/1.73 sq M.predicted MDRD (S/P/Bld) [Vol rate/Area] mL/min/{1.73_m2} Normal [facility] Comment on above: Performed By: #### C BC, CMP #### [facility] [address] Glucose [Mass/Vol] 121 mg/dL High 70-100 The [facility]ending [facility] Comment on above: Result Comment: [place] Glucose Reference Range is dependent on time and content of last meal. Glucose of more than 200 mg/dL in a nonstressed, ambulatory subject supports the diagnosis of Diabetes Mellitus. ADA recommended reference range Performed By: #### C BC, CMP #### [facility] [address] Potassium [Moles/Vol] 4.1 mmol/L Normal 3.5-5.1 The [facility] Comment on above: Performed By: #### C BC, CMP #### [address] Sodium [Moles/Vol] 135 mmol/L Low 136-145 The [facility]ending [facility] Comment on above: Performed By: #### C BC, CMP #### [facility] [address] Urea nitrogen [Mass/Vol] 14 mg/dL Normal 7-25 The [facility]ending [facility] Comment on above: Performed By: #### C ESA, CMP #### [facility] [address] Basophils Auto (Bld) [#/Vol] Ordered By: Mac Turner on 12-05-2024 Basophils (Bld) [#/Vol] Automated basoph il count 0.0-0.2 [facility] Basophils/100 WBC Auto (Bld) Ordered By: Mac Turner on 12-05-2024 Basophils/100 WBC (Bld) Automated basophil % . [facility] Calcium [Mass/volume] in Ser um or PlasmaOrdered By: Mac Turner on 12-05-2024 Calcium [Mass/Vol] Calcium [Mass/volume ] in Serum or Plasma 8.6-10.3 [facility] Carbon dioxide, total [Moles /volume] in Serum or PlasmaOrdered By: Mac Turner on 12-05-2024 CO2 [Moles/Vol] Carbon dioxide, tota l [Moles/volume] in Serum or Plasma 21.0-31.0 [facility] Chloride [Moles/volume] in S mervat or PlasmaOrdered By: Mac Turner on 12-05-2024 Chloride [Moles/Vol] Chloride [Moles/volume] in Serum or Plasma 98-107 [facility] Complete Blood Count Auto Di ffon 12-05-2024 Basophils (Bld) [#/Vol] 0.1 10*3/uL Normal 0.0-0.2 The [facility] Comment on above: Result Comment: PERF ORMED BY: [place] [address] PATHOLOGIST SENIOR SOFTWARE ENGINEER ELEANOR HERNÁNDEZ M.D. Performed By: #### C BC, CMP #### [address] Basophils/100 WBC (Bld) 0.7 % Normal . T he [facility] Comment on above: Performed By: #### C BC, CMP #### [place] [address] [place] Eosinophils (Bld) [#/Vol] 0.0 10*3/uL Normal 0.0-0.45 The [facility]ending [facility] Comment on above: Performed By: #### C BC, CMP #### [address] Eosinophils/100 WBC (Bld) 0.3 % Normal . The [facility] Comment on above: Performed By: #### C BC, CMP #### [address] Erythrocyte distribution width (RBC) [Ratio] 14.3 % Normal 11.9-15.3 The [facility]ending [facility] Comment on above: Performed By: #### C BC, CMP #### [address] Hematocrit (Bld) [Volume fraction] 36.4 % Normal 34.0-46.4 The [facility]ending [facility] Comment on above: Performed By: #### C BC, CMP #### [address] Hemoglobin (Bld) [Mass/Vol] 12.0 g/dL Normal 11.8-15.4 The [facility]ending [facility] Comment on above: Performed By: #### C BC, CMP #### [address] Lymphocytes (Bld) [#/Vol] 2.3 10*3/uL Normal 1.00-4.8 The [facility]ending [facility] Comment on above: Performed By: #### C BC, CMP #### [address] Lymphocytes/100 WBC (Bld) 16.9 % Normal . The [facility] Comment on above: Performed By: #### C BC, CMP #### [address] MCH (RBC) [Entitic mass] 30.6 pg Normal 24.7-34.3 The [facility] Comment on above: Performed By: #### C BC, CMP #### [address] MCV (RBC) [Entitic vol] 92.4 fL Normal 80-100 [facility] Comment on above: Performed By: #### C BC, CMP #### [address] Mean Corpuscular HGB Conc 33.1 g/dL Normal 32.0-35.0 The [facility] Comment on above: Performed By: #### C BC, CMP #### [address] Monocytes (Bld) [#/Vol] 0.8 10*3/uL Normal 0.0-0.8 The [facility] Comment on above: Performed By: #### C BC, CMP #### [address] Monocytes/100 WBC (Bld) 5.6 % Normal . [facility] Comment on above: Performed By: #### C BC, CMP #### [facility] [address] [place] [address] [place] Neutrophils (Bld) [#/Vol] 10.5 10*3/uL High 1.8-7.7 The [facility] Comment on above: Performed By: #### C ESA, CMP #### [facility] [address] [place] [id number] [place] Neutrophils/100 WBC (Bld) 76.5 % Normal . The [facility]ending [facility] Comment on above: Performed By: #### C ESA, CMP #### [facility] [address] [place] [address] [place] NRBC% 0.1 /100{WBC} Normal 0-0.5 The [facility]ending [facility] Comment on above: Performed By: #### C ESA, CMP #### [address] Platelet mean volume (Bld) [Entitic vol] 7.5 fL Normal 6.3-10.7 The [facility] Comment on above: Performed By: #### C ESA, CMP #### [facility] [address] [place] [address] [place] Platelets (Bld) [#/Vol] 353 10*3/uL Normal 150-450 The [facility]ending [facility] Comment on above: Performed By: #### C ESA, CMP #### [place] [id number] [place] RBC (Bld) [#/Vol] 3.94 10*6/uL Normal 3.60-5.00 The [facility]ending [facility] Comment on above: Performed By: #### C ESA, CMP #### [place] [id number] [place] WBC (Bld) [#/Vol] 13.8 10*3/uL High 3.8-11.6 The [facility] Comment on above: Performed By: #### C ESA, CMP #### [place] [id number] [place] Creatinine [Mass/volume] in Serum or PlasmaOrdered By: Mac Turner on 12-05-2024 Creatinine [Mass/Vol] Creatinine [Mass/volume] in Serum or Plasma 0.60-1.20 [facility] Eosinophils Auto (Bld) [#/Vo l]Ordered By: Mac Turner on 12-05-2024 Eosinophils (Bld) [#/Vol] Automated eosinophil count 0.0-0.45 [facility] Eosinophils/100 WBC Auto (Bl d)Ordered By: Mac Turner on 12-05-2024 Eosinophils/100 WBC (Bld) Automated eosinophil % . [facility] Erythrocyte distribution wid th Auto (RBC) [Ratio]Ordered By: Mac Turner on 12-05-2024 Erythrocyte distribution width (RBC) [Ratio] Erythrocyte distribution width [Ratio] by Automated count 11.9-15.3 [facility] Glucose [Mass/volume] in Ser um or PlasmaOrdered By: Mac Turner on 12-05-2024 Glucose [Mass/Vol] Glucose [Mass/volume ] in Serum or Plasma High 70-100 [facility] Comment on above: ADA recommended refe rence rangeRandom Glucose Reference Range is dependent on time and content of last meal. Glucose of more than 200 mg/dL in a nonstressed, ambulatory subject supports the diagnosis of Diabetes Mellitus. Hematocrit Auto (Bld) [Volum e fraction]Ordered By: Mac Turner on 12-05-2024 Hematocrit (Bld) [Volume fraction] Hematocrit [Volume Fraction] of Blood by Automated count 34.0-46.4 [facility] Hemoglobin [Mass/volume] in BloodOrdered By: Mac Turner on 12-05-2024 Hemoglobin (Bld) [Mass/Vol] Hemoglobin [Mass/volume] in Blood 11.8-15.4 [facility] Leukocytes [#/volume] correc andrew for nucleated erythrocytes in Blood by Automated counOrdered By: Mac Turner on 12-05-2024 WBC corrected for nucl RBC Auto (Bld) [#/Vol] Leukocytes [#/volume] corrected for nucleated erythrocytes in Blood by Automated coun High 3.8-11.6 [facility] Lymphocytes Auto (Bld) [#/Vo l]Ordered By: Mac Turner on 12-05-2024 Lymphocytes (Bld) [#/Vol] Lymphocytes [#/volume] in Blood by Automated count 1.00-4.8 [facility] Lymphocytes/100 WBC Auto (Bl d)Ordered By: Mac Turner on 12-05-2024 Lymphocytes/100 WBC (Bld) Lymphocytes/100 leukocytes in Blood by Automated count . [facility] MCH Auto (RBC) [Entitic mass ]Ordered By: Mac Turner on 12-05-2024 MCH (RBC) [Entitic mass] MCH [Entitic mass] by Automated count 24.7-34.3 [facility] MCHC Auto (RBC) [Mass/Vol]Or dered By: Mac Turner on 12-05-2024 MCHC (RBC) [Mass/Vol] MCHC [Mass/volume] by Automated count 32.0-35.0 [facility] MCV Auto (RBC) [Entitic vol] Ordered By: Mac Turner on 12-05-2024 MCV (RBC) [Entitic vol] MCV [Entitic vol ume] by Automated count 80-100 [facility] Monocytes Auto (Bld) [#/Vol] Ordered By: Mac Turner on 12-05-2024 Monocytes (Bld) [#/Vol] Automated blood monocyte count 0.0-0.8 [facility] Monocytes/100 WBC Auto (Bld) Ordered By: Mac Turner on 12-05-2024 Monocytes/100 WBC (Bld) Automated monocyte % . [facility] Neutrophils Auto (Bld) [#/Vo l]Ordered By: Mac Turner on 12-05-2024 Neutrophils (Bld) [#/Vol] Neutrophils [#/volume] in Blood by Automated count High 1.8-7.7 [facility] Neutrophils/100 WBC Auto (Bl d)Ordered By: Mac Turner on 12-05-2024 Neutrophils/100 WBC (Bld) Automated neutrophil % . [facility] No Panel InformationOrdered By: Mac Turner on 12-05-2024 Estimated GFR (CKD-EPI) > 60.0 mL/Min [facility] Pharmacy Creatinine Clearance (Chem N/A [facility] Nucleated erythrocytes [Pres ence] in Blood by Automated countOrdered By: Mac Turner on 12-05-2024 Nucleated RBC Auto Ql (Bld) Nucleated erythrocytes [Presence] in Blood by Automated count 0-0.5 [facility] PST Type and Screenon 2024 ABO and Rh group Nom (Bld) Blood group A Rh(D) positive Normal [facility] Comment on above: Order Comment: Date of Surgery: [id number] Result Comment: PERF ORMED BY: [facility] [address] [place] [id number] PATHOLOGIST SENIOR SOFTWARE ENGINEER ELEANOR HERNÁNDEZ M.D. Platelet mean volume Auto (B ld) [Entitic vol]Ordered By: Mac Turner on 12-05-2024 Platelet mean volume (Bld) [Entitic vol] Platelet mean volume [Entitic volume] in Blood by Automated count 6.3-10.7 [facility] Platelets Auto (Bld) [#/Vol] Ordered By: Mac Turner on 12-05-2024 Platelets (Bld) [#/Vol] Platelets [#/vol ume] in Blood by Automated count 150-450 [facility] Potassium [Moles/volume] in Serum or PlasmaOrdered By: Mac Turner on 12-05-2024 Potassium [Moles/Vol] Potassium [Moles/volume] in Serum or Plasma 3.5-5.1 [facility] RBC Auto (Bld) [#/Vol]Ordere d By: Mac Turner on 12-05-2024 RBC (Bld) [#/Vol] Erythrocytes [#/volume] in Blood by Automated count 3.60-5.00 [facility] Serum or plasma anion gap de terminationOrdered By: Mac Turner on 12-05-2024 Anion gap [Moles/Vol] Serum or plasma an ion gap determination 6.0-15.0 [facility] Sodium [Moles/volume] in Ser um or PlasmaOrdered By: Mac Turner on 12-05-2024 Sodium [Moles/Vol] Sodium [Moles/volume ] in Serum or Plasma Low 136-145 [facility] Urea nitrogen [Mass/volume] in Serum or PlasmaOrdered By: Mac Turner on 12-05-2024 Urea nitrogen [Mass/Vol] Urea nitrogen [Mass/volume] in Serum or Plasma 7-25 [facility] WBC Auto (Bld) [#/Vol]Ordere d By: Mac Turner on 12-05-2024 WBC (Bld) [#/Vol] Leukocytes [#/volume ] in Blood by Automated count High 3.8-11.6 [facility] Glucose Glucometer (BldC) [M ass/Vol]Ordered By: Katarzyna Castro on 11-17-2024 Glucose [Mass/Vol] Capillary blood glucose measurement by glucometer (mass/volume) [facility] Comment on above: Random Glucose Refer ence Range is dependent on time and content of last meal. Glucose of more than 200 mg/dL in a nonstressed, ambulatory subject supports the diagnosis of Diabetes Mellitus. Glucose Poct Glucometerson 0 11-17-2024 Glucose [Mass/Vol] 72 mg/dL Normal [facility] Comment on above: Result Comment: [place] om Glucose Reference Range is dependent on time and content of last meal. Glucose of more than 200 mg/dL in a nonstressed, ambulatory subject supports the diagnosis of Diabetes Mellitus. PERFORMED BY: [place] [address] PATHOLOGIST SENIOR SOFTWARE ENGINEER ELEANOR HERNÁNDEZ M.D. Performed By: #### C BC, CMP #### [address] Commemt1 Normal [facility] Comment on above: Result Comment: Glu2 : Will Repeat Test PERFORMED BY: [place] [address] PATHOLOGIST SENIOR SOFTWARE ENGINEER ELEANOR HERNÁNDEZ M.D. Performed By: #### C BC, CMP #### [address] Glucose [Mass/Vol] 59 mg/dL Off scale low [facility] Comment on above: Result Comment: [place] om Glucose Reference Range is dependent on time and content of last meal. Glucose of more than 200 mg/dL in a nonstressed, ambulatory subject supports the diagnosis of Diabetes Mellitus. Performed By: #### C BC, CMP #### [place] [address] [place] Commemt1 Normal [facility] Comment on above: Result Comment: Glu2 : Will Repeat Test PERFORMED BY: [place] [address] PATHOLOGIST SENIOR SOFTWARE ENGINEER ELEANOR HERNÁNDEZ M.D. Performed By: #### C BC, CMP #### [place] [address] [place] Glucose [Mass/Vol] 50 mg/dL Off scale low The Pending Sale To [facility] Comment on above: Result Comment: [place] om Glucose Reference Range is dependent on time and content of last meal. Glucose of more than 200 mg/dL in a nonstressed, ambulatory subject supports the diagnosis of Diabetes Mellitus. Performed By: #### C BC, CMP #### [address] Commemt1 Normal [facility] Comment on above: Result Comment: Glu2 : Will Repeat Test PERFORMED BY: [place] [address] PATHOLOGIST SENIOR SOFTWARE ENGINEER ELEANOR HERNÁNDEZ M.D. Performed By: #### C BC, CMP #### [place] [address] [place] Glucose [Mass/Vol] 48 mg/dL Off scale low [facility] Comment on above: Result Comment: [place] om Glucose Reference Range is dependent on time and content of last meal. Glucose of more than 200 mg/dL in a nonstressed, ambulatory subject supports the diagnosis of Diabetes Mellitus. Performed By: #### C BC, CMP #### [address] [place] german perf SPECT rest stron 11-17-2024 NM german perf SPECT rest str [facility] [place] [address] Nuclear Medicine Report Signed Patient: Cari Hale MR#: [id number] 952 : 1965 Acct:[id number] Age/Sex: 59 / F ADM Date: 11/17/24 Loc: MD Room: Type: [facility] Attending Dr: Katarzyna Castro MD Copies [...] 193 Dictated By: Roseanne Nguyen MD 11/17/24 183 Signed By: 11/18/24 0640 Normal [facility] No Panel InformationOrdered By: Katarzyna Castro on 11-17-2024 Bedside Glucose Comment See comment [facility] Comment on above: Glu2: Will Repeat Te st STR cardiac stress/lexiscano n 11-17-2024 STR cardiac stress/lexiscan [facility] [place] [address] Cardiac Stress Test Signed Patient: Cari Hale MR#: [id number] 952 : 1965 Acct:[id number] Age/Sex: 59 / F ADM Date: 11/17/24 Loc: MD Room: Type: [facility] Attending Dr: Katarzyna Castro MD Copies [...] study will be dictated separately. Transcribed By: ROXANNE 11/17/24 1558 Dictated By: Roseanne Nguyen MD 11/17/24 1321 Signed By: 11/17/24 1621 Normal [facility] echo transthoracicon [facility] echo transthoracic [facility] [place] [address] Echocardiogram Signed Patient: Cari Hale MR#: [id number] 952 : 1965 Acct:[id number] Age/Sex: 59 / F ADM Date: 11/16/24 Loc: [place] Room: Type: [facility] Attending Dr: Renate Diallo DO Ordering Provider: Katarzyna Castro Date of Service: 11/16/24/ [facility] echo transthoracic: Ischemic Cardiomyopathy. CAD. Chest pain. [...] 71.0 mmSV ()_phl: 33.0 ml ED Default (HM)_phl: 60.0 % LV Length ES (HM)_phl: 58.0 mm ES Default (HM)_phl: 30.0 % Transcribed By: SCV Performed At: 11/16/24 1110 Signed By: Roseanne Nguyen MD 11/16/24 1302 Normal [facility] MM special view LT w/CADon 0 11-16-2024 MM special view LT w/CAD [facility] [place] [address] Ultrasound Report Signed Patient: Cari Hale MR#: [id number] 952 : 1965 Acct:[id number] Age/Sex: 59 / F ADM Date: 11/16/24 Loc: [place] Room: Type: [facility] Attending Dr: Renate Diallo DO Ordering Provider: Renate Diallo DO Date of Service: 11/16/24 MM/MM special view LT w/CAD: R92.8 ([id number]) US/US breast LT complete: R92.8 Copies to: [...] Maria Ramirez M.D.11/16/2024 10:45 AM Dictation Location: [facility] Tech: Treva Porter Transcribed By: BLANCA 11/16/24 1045 Dictated By: Jose Maria Ramirez DO 11/16/24 1033 Signed By: 11/16/24 1045 Normal [facility] CT SOFT TISSUE [...] Code Not Available ECG 12 Leadon 10-26-2024 [facility] Work Phone: CT Guidance for biopsy [...] the pneumothorax. Electronically signed by Debi Dave [facility] Debi Dave MD - 10/09/2024 IMPRESSION: 1. [...] the pneumothorax. Electronically signed by Debi Dave [facility] Radiology Study observation (narrative) [facility] CT NEEDLE BIOPSY LUNG PERCUT ANEOUS [...] by: Debi Dave MD 10/09/24 Final result Normal [facility] POCT Glucoseon 10-09-2024 Glucose [Mass/Vol] 122 mg/dL High 70 - 99 mg/dl [facility] Interpretation and review of laboratory results Abnormal [facility] Performed on ACCU-CHEK [facility] Glucose [Mass/Vol] 122 mg/dL Critically high 70-99 M [facility] Comment on above: Performed By: #### P GLU #### [facility] [address] [place] [address] POC Performed on ACCU-CHEK Normal [facility] Comment on above: Performed By: #### P GLU #### [facility] [address] [place] [address] Surgical Specimenon 10-10-19 Surgical Specimen [facility] [address] [place] [address] FINAL SURGICAL PATHOLOGY REPORT Patient Name: CARI HALE Accession No: [id number] Age Sex: 1965 Location: DIS Account No: [id number] Collected: 10/09/2024 [facility] Rec No: [id number] Received: 10/10/2024 Attend Phys: DEBI DAVE Completed: 10/12/2024 Perform Phys: RENATE DIALLO FINAL DIAGNOSIS: CORE BIOPSY LEFT LUNG MASS: HIGHLY SUSPICIOUS FOR ADENOCARCINOMA COMMENT: IMMUNOHISTOCHEMICAL STAINING SHOWS THAT THE ATYPICAL CELLS ARE POSITIVE FOR PANKERATIN AND TTF-1. THESE CELLS ARE NEGATIVE FOR P40 AND SYNAPTOPHYSIN. ALL STAINS ARE PERFORMED IN ASSOCIATION WITH APPROPRIATE CONTROLS. DR. DIALLO NOTIFIED VIA [employer] 10/12/2024. NAUN/NAUN CLINICAL INFORMATION: Mass of left lung. SPECIMEN: Lt Lung Mass Biopsy GROSS DESCRIPTION: Received in one container labeled Cari Hale and designated left lung mass biopsy . The specimen is received in formalin. The specimen consists of white tissue cores, 0.3 x 0.1 x 0.1 cm in aggregate. The specimen is submitted in toto in one cassette. NAUN/YANA CPT: 30440 X1 51493 X3 83546 X1 Intradepartmental Consultation performed by: Dr. MAIN CHOWDHURY M.D., who concurs with the above diagnosis. Nusrat BURRELL M.D. 10/12/2024 Electronically signed out by Page 1 of 1 Abnormal [facility] Comment on above: Performed By: #### S UR #### [facility] [address] [place] [address] XR CHEST (2 VW)on 10-09-2024 XR CHEST [...] Mavis Mcclain MD 10/09/24 Final result Normal [facility] XR CHEST (2 VW) EXAMINATION: TWO [...] Mavis Mcclain MD 10/09/24 Final result Normal [facility] XR Chest 2 Viewson Small left apical pneumothorax without tracheal deviation [facility] RADIOLOGY EXAMINATION: TWO XRAY VIEWS [...] is no tracheal deviation. Lingular density observed [facility] Debi Dave MD / [...] Small left apical pneumothorax without tracheal deviation [facility] Radiology Study observation (narrative) [facility] Small left apical pneumothorax without tracheal deviation [facility] RADIOLOGY EXAMINATION: TWO XRAY VIEWS [...] is no tracheal deviation. Lingular density observed [facility] Debi Dave MD / [...] Small left apical pneumothorax without tracheal deviation [facility] Radiology Study observation (narrative) [facility] XR Chest 2 ViewsOrdered By: Mavis Mcclain on 10-09-2024 [facility] Work Phone: [facility] Work Phone: US AORTAon 09-26-2024 [place] [address] Ultrasound Report Signed Patient: CARI HALE MR#: [id number] : 1965 Acct:[id number] Age/Sex: 59 / F ADM Date: 09/26/24 Loc: US Attending Dr: Eleanor Phelps M.D. Ordering Physician: Eleanor Phelps M.D. Date of Service: 09/26/24 Procedure(s): US aorta Accession Number(s): [id number] cc: RENATE DIALLO Mohamed M.D. The [place] [id number] Patient Name: CARI HALE MRN: [facility]:[id number] date: 1965 Sex: F Assigned Patient Location: US Current Patient Location: [place] Accession/Order Number: [id number] Exam Date: 09/26/2024 23:06 Report Date: 09/26/2024 [...] of abdominal aortic aneurysm. Impression dictated by: Sindy Russell Jr.OKamra09/26/2024 11:09 PM Dictation Location: [place] [address] Electronically authenticated by: [id number] Y Date: 09/26/2024 23:09 Dictated By: Ozzy Mondragon M.D. Signed By: 09/26/242311 DD/ 08 TD/TT: Tattoo Artist: [facility] Radiology, Radiologist, MD - 09/26/2024 [place] [address] Ultrasound Report Signed Patient: CARI HALE MR#: [id number] : 1965 Acct:[id number] Age/Sex: 59 / F ADM Date: 09/26/24 Loc: US Attending Dr: Eleanor Phelps M.D. Ordering Physician: Eleanor Phelps M.D. Date of Service: 09/26/24 Procedure(s): US aorta Accession Number(s): [id number] cc: RENATE DIALLO Mohamed M.D. [place] [id number] Patient Name: CARI HALE MRN: [facility]:[id number] date: 1965 Sex: F Assigned Patient Location: US Current Patient Location: US Accession/Order Number: [id number] Exam Date: 09/26/2024 23:06 Report Date: 09/26/2024 [...] aneurysm. Impression dictated by: Ozzy Mondragon Jr., DKamarOKamar09/26/2024 11:09 PM Dictation Location: [place] [address] Electronically authenticated by: [id number] Y Date: 09/26/2024 23:09 Dictated By: Ozzy Mondragon M.D. Signed By: 09/26/242311 DD/ 08 TD/TT: Tattoo Artist: [facility] Radiology Study observation (narrative) [facility] AORTAOrdered By: Radiolog ist Radiology on 09-26-2024 [facility] Work Phone: CBC With Platelet No Differe ntialon 09-13-2024 Erythrocyte distribution width (RBC) [Ratio] 12.3 % Normal 11.5-14.5 [facility] Comment on above: Performed By: #### C BCND #### [facility] [address] [place] [address] Hematocrit (Bld) [Volume fraction] 35.9 % Low 37.0-47.0 [facility] Comment on above: Performed By: #### C BCND #### [facility] [address] [place] [address] Hemoglobin (Bld) [Mass/Vol] 12.4 g/dL Normal 12.0-16.0 [facility] Comment on above: Performed By: #### C BCND #### [facility] [address] [place] [address] MCH (RBC) [Entitic mass] 32.8 pg Critically high 27.0-31.3 [facility] Comment on above: Performed By: #### C BCND #### [facility] [address] [place] [address] MCHC 34.5 % Normal 33.0-37.0 [facility] Comment on above: Performed By: #### C BCND #### [facility] [address] [place] [address] MCV (RBC) [Entitic vol] 95.0 fL Critically high 79.4-94 .8 [facility] Comment on above: Performed By: #### C BCND #### [facility] [address] [place] [address] Platelets (Bld) [#/Vol] 329 10*3/uL Normal 130-400 [facility] Comment on above: Performed By: #### C BCND #### [facility] [address] [place] [address] RBC (Bld) [#/Vol] 3.78 10*6/uL Low 4.20-5.40 [facility] Comment on above: Performed By: #### C BCND #### [facility] [address] [place] [address] WBC (Bld) [#/Vol] 13.2 10*3/uL Critically high 4.8-10.8 [facility] Comment on above: Performed By: #### C BCND #### [facility] [address] [place] [address] Prothrombin Timeon 5 INR Coag (PPP) [Relative time] 1.0 {INR} Normal [facility] Comment on above: Performed By: #### P T #### [facility] [address] [place] [address] PT Coag (PPP) [Time] 13.2 s Normal 12.3-14.9 [facility] Comment on above: Performed By: #### P T #### [facility] [address] [place] [address] SKULL BASE TO MID THI [...] Yg Alston MD 08/16/24 Final result Normal [facility] PT Skull base to mid-thighon 08-16-2024 2 cm lingular nodule is hypermetabolic and worrisome for neoplasm. Tissue sampling is recommended. Nonenlarged hypermetabolic left cervical level II lymph node. [facility] RADIOLOGY EXAMINATION: WHOLE BODY PET/CT [...] nonobstructing 3 mm midpole left renal calculus. [facility] RADIOLOGY Yg Alston MD - [...] hypermetabolic left cervical level II lymph node. [facility] Radiology Study observation (narrative) [facility] PT Skull base to mid-thighOr dered By: Yg Alston on 08-16-2024 [facility] Work Phone: Coding Queryon 03-31-2024 Coding [...] EDT Subject: RE: Coding Query Caller Name: HALE, CARI E; Caller Number: H , M ruled out... d/c summary states symptoms secondary to hypoglycemia. However, TIA was ruled out also. From: Lee Martinez DO To: More Meyer; Sent: 03/31/2024 08:15:56 EDT Subject: RE: Coding Query Caller Name: HALE, CARI E; Caller Number: H , M [facility] Provider Letteron 03-24-2024 Provider Letter Provider Letter March 24, 2024 [address] H[address] [place] [phone] CARI HALE 1965 Dear Cari, We have been trying to reach you with no success. It is important that you return our call regarding your recent hospital discharge upon receiving this letter. Also, at the time of your call, please provide us with your current information. Thank you for your prompt attention to this matter. Sincerely, Tre Salas RN Access Clinician [phone] [facility] CHEMISTRYOrdered By: Lab ROP User on 03-22-2024 Glucose [Mass/Vol] 354 mg/dL High 55 - 99 mg/dL [facility] POC Subsection Comment on above: Result Comment: Carter chrystal RN/ POC Device SN [id number] 1 Invalid Interpretation Code [facility] POC Subsection POC User ID [id number] 1 Invalid Interpretation Code [facility] POC Subsection POC Username PITA BAUTISTA Invalid Interpretation Code [facility] POC Subsection Glucose [Mass/Vol] 52 mg/dL Low 55 - 99 mg/dL [facility] POC Subsection Comment on above: Result Comment: Carter chrystal RN/ POC Device SN [id number] 1 Invalid Interpretation Code [facility] POC Subsection POC User ID [id number] 1 Invalid Interpretation Code [facility] POC Subsection [...] Contrast amount in ml's: 100 Normal [facility] Capillary Glucose POCon 03-03 Glucose [Mass/Vol] 354 mg/dL High 55-99 [facility] Comment on above: Result Comment: Carter SERRANO Performed By: #### 2 [id number] ####[facility] [address] [place] [address] Glucose [Mass/Vol] 52 mg/dL Low 55-99 [facility] Comment on above: Result Comment: Carter SERRANO Performed By: #### 2 [id number] #### [facility] Laboratory [address] [place] [address] Discharge Note-Nursingon Discharge Note-Nursing Discharge Note-Lali harting CARI HALE :1965 Visit Date:03/21/2024 Inpatient Discharge [...] When: Within 2 to 4 weeks Where: [facility] [address] [place] [address]- Medications What How Much When Why Instructions [...] R (more content not included)... Normal [facility] ED Note-Physicianon 03-22-20 ED Note-Physician ED [...] she was able to call her via [facility] on her phone and scream for help. [...] Patient seen and evaluated by the physician media center assistant. Attending physician was present in the emergency department and supervised care. This visit was performed by both the physician and an APC. I performed all aspects of the MDM as documented. This report was transcribed using voice recognition software. Every effort was made to ensure accuracy, however, inadvertently computerized motion picture equipment supervisor mistakes may be present. Appropriate healthcare PPE was used in evaluating this patient. The patient was placed in a mask. The healthcare provider was wearing mask, gloves, and utilizing proper hand hygiene. All equipment was properly cleansed. I performed a substantive part of the MDM during the patient?s E/M visit. (more content not included)... Normal [facility] Comment on above: Result Comment: Elec tronically Signed By: Taylor García PA-C\.br\Date and Time Signed: 03/21/24 18:42 EDT\.br\Electronically Co-Signed By: Han Olivera M.D.\.br\Date and Time Co-Signed: 03/22/24 13:39 EDT Extra Alexander 03-22-2024 WB Tube Collected Yes Invalid Interpretation Code [facility] Comment on above: Performed By: #### 1 [id number] #### [facility] [address] [place] [address] Free T4on 03-22-2024 Free T4 [Mass/Vol] 1.32 ng/dL Normal 0.58-1.64 [facility] Comment on above: Performed By: #### 2 [id number] #### [facility] [address] [place] [address] Inpatient Clinical Summaryon 03-22-2024 Inpatient Clinical Summary Inpatient Clinical Summary [address] [address] Clinical Summary Person Information: Name: CARI HALE Age: 59 Years : 1965 Sex: Female PCP: Flora Khan Marital Status: Race: White Ethnicity: Non- or Language: Lao Visit Id: Visit Reason: Weakness or fatigue; Potential stroke; STROKE Speciality: Acuity: Enc Type: Observation Med Service: Medical Arrival: 03/21/2024 13:41:38 Discharge: Dispo Type: Admitted as IP to this Hosp Address: [address] [place] [id number] Provider Notes: Diagnosis: 1:TIA (transient ischemic attack); [...] up: With: Address: When: Jesse Carr MD [place] [phone] Within 2 to 4 weeks Patient Education Information: Alcohol Misuse and Dependence Information, Adult; High Cholesterol; Type 2 Diabetes Mellitus, Diagnosis, Adult; Hypertension, Adult, Kmem-cu-Dsyo; Smoking Tobacco Information, Adult; Core Measures Transient Ischemic Attack (TIA) [facility] [place] Core Measures: Stroke (Cerebrovascular Accident) [facility]Custom[place] Normal [facility] Inpatient Patient Summaryon 03-22-2024 Inpatient Patient Summary Inpatient Patient Summary [place] [id number] Patient Discharge Instructions PERSON INFORMATION Name: CARI [...] Follow up: With: Address: When: Bruno HANKS, Jesse [address] [place] [address] Within 2 to 4 weeks In the event that this physician does not participate in your insurance network, please consult with your insurance company to find a nearby participating provider. Comment: MEG Danielle KRIS E, have received the attached [...] Last Dose: (more content not included)... Normal [facility] Interdisciplinary Note - Edy e Manageron 03-22-2024 Interdisciplinary Note - Rn Internship Interdisciplinary Note - Rn Internship Patient is drowsy does not stay awake enough to speak to CRM. Unable at this time to assess DC needs Patient is here as observation for possible stroke. Patient is assigned to [facility], see notes. Patient has neurology on [...] Jesse and he is her ride at [facility]. Patient verified PCP as Dr Diallo, melvin and insurance. Patient is here as observation for possible stroke. Patient is assigned to [facility], see notes. Patient has neurology on case. Patient will get a MRI and MRA. Patient is pending PT recs. Patient declines at this time DC needs for DME, HH or PM. If she changes her mind for needs. She will call [facility]. Patient was provided contact info, susanna board updated. CRM Following Normal [facility] Comment on above: Result Comment: Elec tronically Signed By: Rose Lucio\.br\Date and Time Signed: 03/22/24 15:08 EDT Interdisciplinary Note - Soc ial Workeron 03-22-2024 Interdisciplinary Note - Air Brake Mechanic Interdisciplinary Note - Air Brake Mechanic There was a system generated request for [...] consumption and she voiced understanding. Normal [facility] MRA Head w/o Contraston 03-03 MRA Head w/o Contrast Exam Date/Time: 03/22/2024 14:04 EDT Reason for Exam: Stroke Report IMPRESSION: NEGATIVE LIMITED HEAD MRA. EXAM: MRA Head w/o Contrast DATE: 03/22/2024 1:05 PM CLINICAL HISTORY: Stroke. Weakness and falls. COMPARISON: Head MRI 03/22/2024. TECHNIQUE: Three-dimensional [id number] MRA of the intracranial arterial circulation was [...] MD Transcribed by: HARRY Technologist: TRACY [facility] MRI Brain w/o Contraston MRI Brain [...] MD Transcribed by: HARRY Technologist: TRACY Normal [facility] TSH With T4fr Reflexon 03-22 TSH Qn 0.01 m[IU]/L Low 0.34-5.60 [facility] Comment on above: Performed By: #### 1 [id number] #### [facility] [address] [place] [address] BB Draw & Holdon 03-21-2024 BB D&H Sample drawn for Blo od Ba Normal [facility] Comment on above: Performed By: #### 1 [id number] #### [facility] [address] [place] [address] CBC w/ Auto Diffon 4 Basophils/100 WBC (Bld) 0.8 % Normal 0.0-2.0 [facility] Comment on above: Performed By: #### 2 [id number] #### [facility] [address] [place] [address] Basophils/Leukocytes Auto (Bld) [Pure # fraction] 0.1 E9/L Normal 0.0-0.2 [facility] Comment on above: Performed By: #### 2 [id number] #### [facility] [address] [place] [address] Eosinophils (Bld) [#/Vol] 0.2 E9/L Normal 0.0-0.5 [facility] Comment on above: Performed By: #### 2 [id number] #### [facility] [address] [place] [address] Eosinophils/100 WBC (Bld) 2.5 % Normal 0.0-8.0 [facility] Comment on above: Performed By: #### 2 [id number] #### [facility] [address] [place] [address] Erythrocyte distribution width (RBC) [Ratio] 13.7 % Normal 10.9-14.2 [facility] Comment on above: Performed By: #### 2 [id number] #### [facility] [address] [place] [address] Hematocrit (Bld) [Volume fraction] 39.5 % Normal 34.0-46.0 [facility] Comment on above: Performed By: #### 2 [id number] #### [facility] [address] [place] [address] Hemoglobin (Bld) [Mass/Vol] 13.0 g/dL Normal 12.0-16.0 [facility] Comment on above: Performed By: #### 2 [id number] #### [facility] [address] [place] [address] Lymphocytes (Bld) [#/Vol] 2.1 E9/L Normal 1.0-4.0 [facility] Comment on above: Performed By: #### 2 [id number] #### [facility] [address] [place] [address] Lymphocytes/100 WBC (Bld) 22.4 % Normal 14.0-50.0 [facility] Comment on above: Performed By: #### 2 [id number] #### [facility] [address] [place] [address] MCH (RBC) [Entitic mass] 32.8 pg Normal 27.0-34.0 [facility] Comment on above: Performed By: #### 2 [id number] #### [facility] [address] [place] [address] MCHC (RBC) [Mass/Vol] 32.9 g/dL Normal 31.4-36.0 [facility] Comment on above: Performed By: #### 2 [id number] #### [facility] [address] [place] [address] MCV (RBC) [Entitic vol] 99.8 fL Normal 80.0-100.0 [facility] Comment on above: Performed By: #### 2 [id number] #### [facility] [address] [place] [address] Monocytes (Bld) [#/Vol] 1.0 E9/L Normal 0.2-1.0 [facility] Comment on above: Performed By: #### 2 [id number] #### [facility] [address] [place] [address] Neutrophils (Bld) [#/Vol] 6.1 E9/L Normal 2.0-7.5 [facility] Comment on above: Performed By: #### 2 [id number] #### [facility] [address] [place] [address] Neutrophils/100 WBC (Bld) 63.7 % Normal 36.0-75.0 [facility] Comment on above: Performed By: #### 2 [id number] #### [facility] [address] [place] [address] Platelet mean volume (Bld) [Entitic vol] 7.9 fL Normal 6.4-10.8 [facility] Comment on above: Performed By: #### 2 [id number] #### [facility] [address] [place] [address] Platelets (Bld) [#/Vol] 304.0 E9/L Normal 150.0-500.0 [facility] Comment on above: Performed By: #### 2 [id number] #### [facility] [address] [place] [address] RBC (Bld) [#/Vol] 4.0 E12/L Low 4.3-5.9 [facility] Comment on above: Performed By: #### 2 [id number] #### [facility] [address] [place] [id number] WBC corrected for nucl RBC Auto (Bld) [#/Vol] 9.6 E9/L Normal 4.0-11.0 [facility] Comment on above: Performed By: #### 2 [id number] #### [facility] [address] [place] [id number] CHEMISTRYOrdered By: Lab ROP User on 03-21-2024 Glucose [Mass/Vol] 150 mg/dL High 55 - 99 mg/dL [facility] [place] Subsection POC Device SN [id number] Invalid Interpretation Code [facility] Subsection POC User ID [id number] 1 Invalid Interpretation Code [facility] P[facility] Subsection POC Username DULCE MARIA BERRY Invalid Interpretation Code [facility] Subsection CHEMISTRYOrdered By: SYSTEM SYSTEM on [...] Urea nitrogen/Creatinine [Mass ratio] 10 mg/mg Normal - Remisol Chem CMPon 03-21-2024 Albumin [Mass/Vol] 3.4 g/dL Normal 3.3-5.0 [facility] Comment on above: Performed By: #### 2 [id number] #### [facility] [address] [place] [address] Albumin/Globulin (S) [Mass conc ratio] 1.4 Normal 1.1-2.2 [facility] Comment on above: Performed By: #### 2 [id number] #### [facility] [address] [place] [address] ALP [Catalytic activity/Vol] 106 Int._Unit/L High 21- [facility] Comment on above: Performed By: #### 2 [id number] #### [facility] [address] [place] [address] ALT No additional P-5'-P [Catalytic activity/Vol] 17 Int._Unit/L Normal 6-46 [facility] Comment on above: Performed By: #### 2 [id number] #### [facility] [address] [place] [address] Anion gap [Moles/Vol] 15 mmol/L Normal 6-16 [facility] Comment on above: Performed By: #### 2 [id number] #### [facility] [address] [place] [address] AST [Catalytic activity/Vol] 21 Int._Unit/L Normal 5-43 [facility] Comment on above: Performed By: #### 2 [id number] #### [facility] [address] [place] [address] Bilirubin [Mass/Vol] 0.5 mg/dL Normal 0.0-1.1 [facility] Comment on above: Performed By: #### 2 [id number] #### [facility] [address] [place] [address] Calcium [Mass/Vol] 8.5 mg/dL Low 8.9-11.1 [facility] Comment on above: Performed By: #### 2 [id number] #### [facility] [address] [place] [address] Chloride [Moles/Vol] 105 mmol/L Normal 101-111 [facility] Comment on above: Performed By: #### 2 [id number] #### [facility] [address] [place] [address] CO2 [Moles/Vol] 24 mmol/L Normal 21-31 [facility] Comment on above: Performed By: #### 2 [id number] #### [facility] [address] [place] [address] Creatinine [Mass/Vol] 0.7 mg/dL Normal 0.5-1.3 [facility] Comment on above: Performed By: #### 2 [id number] #### [facility] [address] [place] [address] Globulin (S) [Mass/Vol] 2.5 g/dL Normal 1.4-4.0 [facility] Comment on above: Performed By: #### 2 [id number] #### [facility] [address] [place] [address] Glucose [Mass/Vol] 112 mg/dL Normal 55-199 [facility] Comment on above: Performed By: #### 2 [id number] #### [facility] [address] [place] [address] Potassium [Moles/Vol] 4.3 mmol/L Normal 3.5-5.3 [facility] Comment on above: Performed By: #### 2 [id number] #### [facility] [address] [place] [address] Protein [Mass/Vol] 5.9 g/dL Low 6.0-7.8 [facility] Comment on above: Performed By: #### 2 [id number] #### [facility] [address] [place] [address] Sodium [Moles/Vol] 140 mmol/L Normal 135-145 [facility] Comment on above: Performed By: #### 2 [id number] #### [facility] [address] [place] [address] Urea nitrogen [Mass/Vol] 7 mg/dL Normal 5-21 [facility] Comment on above: Performed By: #### 2 [id number] #### [facility] [address] [place] [address] Urea nitrogen/Creatinine [Mass ratio] 10 No Units Normal 10-20 [facility] Comment on above: Performed By: #### 2 [id number] #### [facility] [address] [place] [address] COAGULATIONOrdered By: Nelida Diallo on 03-21-2024 aPTT Coag (PPP) [Time] 27.5 s Normal 25.1 - 36.5 second(s) [facility] Comment on above: Interpretive Data: [...] the same coagulation reagent and instrumentation as [facility]. Currently there are no coagulation studies available worldwide for children to 14 days, and no normal ranges. Heparin therapeutic range (represented by Anti-Factor Xa activity of 0.2 - 0.4 U/mL) corresponds to PTT of 56.6 - 109.0 sec. INR Coag (PPP) [Relative time] 0.92 {INR} Invalid Interpretation Code [facility] Comment on above: Interpretive Data: I NR results are specifically intended to assess patients stabilized on long-term Anticoagulation therapy suggested INR s Less Intensive Anticoagulation 2.0 3.0 Conventional Range 3.0 4.5 PT Coag (PPP) [Time] 10.3 s Normal 9.4 - 1 2.5 second(s) [facility] Comment on above: Interpretive Data: [...] the same coagulation reagent and instrumentation as [facility]. Currently there are no coagulation studies available [...] intra or extra axial findings. Normal [facility] Capillary Glucose POCon 03-03 Glucose [Mass/Vol] 150 mg/dL High 55- [facility] Comment on above: Performed By: #### 2 [id number] #### [facility] [address] [place] [address] Glucose [Mass/Vol] 281 mg/dL High 55-99 [facility] Comment on above: Result Comment: Carter jarrell RN/ Performed By: #### 2 [id number] #### [facility] [address] [place] [address] ED Clinical Summaryon 2023 ED Clinical Summary ED Clinical Summary [address] [address] ED Clinical Summary Person Information Name: CARI HALE [facility] Age: 59 Years : 1965 Sex: Female Language: Lao PCP: Flora Khan Marital Status: Visit Id: Visit Reason: Weakness or fatigue; Potential stroke; STROKE Speciality: Acuity: 2 Enc Type: Observation Med Service: Medical Arrival: 03/21/2024 13:41:38 Discharge: LOS: 000 05:49 Checkin: 03/21/2024 13:41:38 Checkout: 03/21/2024 19:30:55 Dispo Type: Admitted as IP to this Hosp EVENTS: Event Name Event Status Request Date/Time [...] 19:17:09 Meds Admin Request 03/21/2024 19:20:30 ADDRESS: [address] [place] [address] [id number] PHYS DOC NOTES: MEDICAL INFORMATION: Prescriptions Given: [...] Tab) (more content not included)... Normal [facility] ED Patient Education Noteon 03-21-2024 ED Patient Education Note ED Patient Education Note Normal [facility] ED Patient Summaryon 024 ED Patient Summary ED Patient Summary [place] [id number] Patient Discharge Instructions Person Information Name: CARI HALE Age: 59 Years Arrival Date: 03/21/2024 13:41:38 Discharge Diagnosis: 1:TIA (transient ischemic attack); 2:Type 2 diabetes mellitus with diabetic neuropathy; 3:HTN; 4:Hyperlipidemia; 5:CAD; 6:Emphysema/COPD; 7:Mood disorder; 8:History of thyroidectomy; 9:Smoker Primary Care Physician: Flora Khan Provider Information Primary Provider: Han Olivera M.D. [facility] [employer] Operator:Taylor García PA-C The exam and treatment you received in the Emergency Department were for an urgent problem and are not intended as complete care. It is important that you follow up with a doctor, nurse practitioner, or physician?s media center assistant for ongoing care. If your symptoms [...] opioids can be used to help relieve xnuvizur-as-qtadiq pain and are often prescribed following a [...] be struggling with addiction, tell your health patient care manager and ask for guidance or call [facility]?S National Help (more content not included)... Normal [facility] Ethanolon 03-21-2024 Ethanol Lvl <10 Normal <=11 [facility] Comment on above: Performed By: #### 2 [id number] #### [facility] [address] [place] [address] Extra Davis 03-21-2024 WB Tube Collected Yes Invalid Interpretation Code [facility] Comment on above: Performed By: #### 1 [id number] #### [facility] [address] [place] [address] HEMATOLOGYOrdered By: SYSTEM SYSTEM on 03-21-2024 Basophils/100 [...] (PPP) [Time] 27.5 second(s) Normal 25.1-36.5 [facility] Comment on above: Result Comment: Para [...] the same coagulation reagent and instrumentation as [facility]. Currently there are no coagulation studies available worldwide for children to 14 days, and no normal ranges. Heparin therapeutic range (represented by Anti-Factor Xa activity of 0.2 - 0.4 U/mL) corresponds to PTT of 56.6 - 109.0 sec. Performed By: #### 1 [id number] #### [facility] [address] [place] [address] INR Coag (PPP) [Relative time] 0.92 {INR} Invalid Interpretation Code [facility] Comment on above: Result Comment: INR results are specifically intended to assess patients stabilized on long-term Anticoagulation therapy suggested INR?s ?Less Intensive Anticoagulation? 2.0 ? 3.0 Conventional Range 3.0 ? 4.5 Performed By: #### 1 [id number] #### [facility] [address] [place] [address] PT Coag (PPP) [Time] 10.3 second(s) Normal 9.4-12.5 [facility] Comment on above: Result Comment: 15 [...] the same coagulation reagent and instrumentation as [facility]. Currently there are no coagulation studies available worldwide for children to 14 days, and no normal ranges. Performed By: #### 1 [id number] #### [facility] [address] [place] [address] Pre-Arrival Noteon Pre-Arrival Note Pre-Arrival Note Pre-Arrival Summary Name: , Current Date: 03/21/2024 13:41:57 EDT Gender: Date of : Age: Pre-Arrival Type: EMS ETA: 03/21/2024 14:06:00 EDT Primary Care Physician: Presenting Problem: STROKE Pre-Arrival User: Christen Aleman RN Referring Source: Location: PA Completion Date/Time: 03/21/2024 13:36:00 [facility] Emergency Department Pre-Hospital Report Form Vital Signs: Pre-Hospital Report: Treatment in Route: Response to Treatment: Misc. Issues: Normal [facility] Troponin 0 Hr.on 03-21-2024 Troponin HS 3.50 pg/mL Low 10.10-27.10 [facility] Comment on above: Result Comment: The 95% CI (Confidence Interval) PPV (Positive Predictive Value) for myocardial infarction in females is 38 pg/mL, in males 51 pg/mL. The results should be used in conjunction with clinical conditions of myocardial infarction. (Access High Sensitivity Troponin I Instructions For Use, Pina Chinyere, March 2018) Performed By: #### 1 [id number] #### [facility] [address] [place] [address] UA with Cult Rflxon 03-21-20 24 Bilirubin Ql (U) Negative Normal Negative [facility] Comment on above: Performed By: #### 4 [id number] #### [facility] [address] [place] [address] Clarity (U) Clear Normal Clear [facility] Comment on above: Performed By: #### 4 [id number] #### [facility] [address] [place] [address] Color (U) Light-Yellow Normal Yellow [facility] Comment on above: Result Comment: Micr oscopic readings are only performed on those samples that meet specific criteria set forth by [facility]. Performed By: #### 4 [id number] #### [facility] [address] [place] [address] Glucose Ql (U) 4+ mg/dL Abnormal Negative [facility] Comment on above: Performed By: #### 4 [id number] #### [facility] [address] [place] [address] Hemoglobin Auto test strip (U) [Mass/Vol] Negative Normal Negative [facility] Comment on above: Performed By: #### 4 [id number] #### [facility] [address] [place] [address] Ketones Auto test strip Ql (U) 2+ mg/dL Abnormal Negative [facility] Comment on above: Performed By: #### 4 [id number] #### [facility] [address] [place] [address] Leukocyte esterase Auto test strip Ql (U) Negative Normal Negative [facility] Comment on above: Performed By: #### 4 [id number] #### [facility] [address] [place] [address] Nitrite Auto test strip Ql (U) Negative Normal Negative [facility] Comment on above: Performed By: #### 4 [id number] #### [facility] [address] [place] [address] pH (U) 5.5 [pH] Invalid Interpretation Code 5.0-9.0 [facility] Comment on above: Performed By: #### 4 [id number] #### [facility] [address] [place] [address] Protein Ql (U) Negative Normal Negative [facility] Comment on above: Performed By: #### 4 [id number] #### [facility] [address] [place] [address] Specific gravity (U) [Rel density] 1.020 Invalid Interpretation Code 1.005-1.030 [facility] Comment on above: Performed By: #### 4 [id number] #### [facility] [address] [place] [address] Urobilinogen (U) [Mass/Vol] Negative Normal Negative [facility] Comment on above: Performed By: #### 4 [id number] #### [facility] [address] [place] [address] Type of Urine collection method Clean Catch Normal [facility] Comment on above: Performed By: #### 4 [id number] #### [facility] [address] [place] [address] URINALYSISOrdered By: SYSTEM SYSTEM on 03-21-2024 Bilirubin Ql (U) Negative Normal Negativemg/ dL [facility] UA Auto SS Clarity (U) Clear (03/21/24 4:27 PM) Normal Clear [facility] UA Auto SS Color (U) Light-Yellow 1 (03/21/24 4:27 PM) Normal Yellow [facility] Auto SS Comment on above: Interpretive Data: M icroscopic readings are only performed on those samples that meet specific criteria set forth by [facility]. Glucose Ql (U) 4+ mg/dL Invalid Interpretation Code Negativemg/ dL [facility] UA Auto SS Hemoglobin Auto test strip (U) [Mass/Vol] Negative Normal Negativemg/ dL FT UA Auto SS Ketones Auto test strip Ql (U) 2+ mg/dL Invalid Interpretation Code Negativemg/ dL FT UA Auto SS Leukocyte esterase Auto test strip Ql (U) Negative Normal NegativeLeu /uL FT UA Auto SS Nitrite Auto test strip Ql (U) Negative Normal Negativemg/ dL [facility] UA Auto SS pH (U) 5.5 *NA* (03/21/24 4:27 PM) Invalid Interpretation Code 5.0 - 9.0 [facility]A Auto SS Protein Ql (U) Negative Normal Negativemg/ dL [facility] UA Auto SS Specific gravity (U) [Rel density] 1.020 *NA* (03/21/24 4:27 PM) Invalid Interpretation Code 1.005 - 1.030 [facility] UA Auto SS Urobilinogen (U) [Mass/Vol] Negative Normal Negativemg/ dL [facility] UA Auto SS URINALYSISOrdered By: Logan Hooker on 03-21-2024 UA Spec Desc Clean Catch (03/21/24 4:27 PM) Normal [facility] UA Auto SS XR Chest Single Viewon [...] = na DAP = na Normal [facility] eGFRon 03-21-2024 eGFR 99 mL/min/1.73 m2 Normal >=59 [facility] Comment on above: Order Comment: Order added by Discern Expert. Performed By: #### 1 [id number] #### [facility] [address] [place] [address] Consultation Noteon 10-29-19 24 Consultation Note [id number] Normal [facility] Provider Letteron 08-17-2023 Provider Letter August 17, 2023 [address] [place] [id number] : 1965 Dear Cari , We have been trying to reach you with no success. It is important that you return our call regarding your medication/appointment upon receiving this letter. Also, at the time of your call, please provide us with your current information. ;;f Thank you for your prompt attention to this matter. Sincerely, Family Medicine [address] [address] Normal [facility] Family Medicine Office/Clini c Noteon 05-28-2023 Family Medicine Office/Clinic Note HPI Staff Cari is a 58 year old female presenting to [facility] Establish Care: History: Any previous diagnosis: Headache, Anxiety, HTN, HLD, Osteoarthritis, essential tremors, Type 2 DM, Colitis History of seeing any specialist: Neurologist for tremors doens't follow anymore, Dr Vitale in [place] When was your last doctors visit: Last provider: Dr Diallo Any recent labs: 01/22/23 and December 31 2022 A1c 7.2 Health Maintenance UTD: Colonoscopy: 10/2022 Colitis Mammogram: hasn't had one in a long time Pelvic/Pap: 3 years ago normal NEW: 10 Acute: Current issues/complaints: would like order for Angelina to [facility], refill hydroxyzine Menstrual cycle: pt states has [...] M (more content not included)... Normal [facility] Comment on above: Result Comment: Elec [...] 3:00 PM EST With: Flora Khan Where: [facility] Invalid Interpretation Code [address] [place] [address]-\.br\ You Need to Complete the Following\. br\ MA Mamm Screen w/CAD if perf and 3D Jace, 05/25/23, Routine, Order for Future Visit, Transport Mode: Ambulatory, Reason: Screening, No, Breast cancer screening by mammogram, pp_set_radi ology_subsp ecialty, [facility]\.br\ US Pelvis Non-OB Complete, 05/25/23, Routine, Order for future visit, Transport Mode: Ambulatory, Reason: Abnormal vaginal bleeding, No, Post-menopa use bleeding [facility] CHEMISTRYOrdered By: SYSTEM SYSTEM on 01-22-2023 [...] 100 mL/min/1.73 m2 Normal >=59mL/min/ 1.73 m2 FT Chem S Globulin (S) [Mass/Vol] [...] 75 mL/min/1.73 m2 Normal >=59mL/min/ 1.73 m2 FT Chem S Globulin (S) [Mass/Vol] [...] 19.0 mcg/mL [facility] Remisol CHEMISTRYOrdered By: Davey enamoradoolajannette on 12-31-2022 HbA1c (Bld) [Mass fraction] 7.2 [...] 0.7 E9/L Normal 0.2 - 1.0 E9/L FT HemeAutoSS Neutrophils/100 WBC (Bld) 74.4 % Normal 36.0 - 75.0 % FT [facility]eAutoSS Neutrophils/Leukocytes Auto (Bld) [Pure # fraction] 9.1 E9/L High 2.0 - 7.5 E9/L FT HemeAutoSS HEMATOLOGYOrdered By: Carlin Martinez on 12-31-2022 Erythrocyte distribution width (RBC) [Ratio] 13.4 % Normal 10.9 - 14.2 % [facility] HemeAutoSS Hematocrit (Bld) [Volume fraction] 42.3 % Normal 34.0 - 46.0 % FT [facility]eAutoSS Hemoglobin (Bld) [Mass/Vol] 14.6 g/dL Normal 12.0 - 16.0 gm/dL [facility]eAutoSS MCH (RBC) [Entitic mass] 33.5 pg Normal 27.0 - 34.0 pg [facility]eAutoSS MCHC (RBC) [Mass/Vol] 34.6 g/dL Normal 31.4 - 36.0 gm/dL [facility] HemeAutoSS MCV (RBC) [Entitic vol] 97.1 fL Normal 80.0 - 100.0 fL FT HemeAutoSS Platelet mean volume (Bld) [Entitic vol] 8.0 fL Normal 6.4 - 10.8 fL [facility]eAutoSS Platelets (Bld) [#/Vol] 408.0 E9/L Normal 150. 0 - 500.0 E9/L [facility] HemeAutoSS RBC (Bld) [#/Vol] 4.4 E12/L Normal 4.3 - 5.9 E12/L [facility]eAutoSS Sed Rate Automated 14 mm/h Normal 0 - 34 mm/hr FT HemeAutoSS WBC corrected for nucl RBC Auto (Bld) [#/Vol] 12.2 E9/L High 4.0 - 11.0 E9/L [facility] HemeAutoSS Glucose Glucometer (BldC) [M ass/Vol]Ordered By: Geovanny Schaffer on 10-13-2022 Glucose [Mass/Vol] 177 mg/dL [facility] Comment on above: Random Glucose Refer ence Range is dependent on time and content of last meal. Glucose of more than 200 mg/dL in a nonstressed, ambulatory subject supports the diagnosis of Diabetes Mellitus. HCG ( test) IA.rapi d Ql (U)Ordered By: Geovanny Schaffer on 10-13-2022 HCG ( test) Ql (U) Negative [facility] No Panel InformationOrdered By: Geovanny Schaffer on 10-13-2022 Bedside Glucose Comment Glu2: cleaned meter [facility] CHEMISTRYOrdered By: SYSTEM SYSTEM on 06-03-2022 Albumin [...] Normal >=59mL/min/ 1.73 m2 FT Chem S Globulin (S) [Mass/Vol] [...] 4.1 E12/L Low 4.3 - 5.9 E12/L [facility] HemeAutoSS WBC corrected for nucl RBC Auto (Bld) [#/Vol] 10.5 E9/L Normal 4.0 - 11.0 E9/L [facility] HemeAutoSS CBC AUTO DIFFon 01-15-2022 BASO # 0.1 103/ul Normal 0.0-0.1 [facility] Comment on above: Performed By: #### A 1C #### [facility] [address] [place] [address] Dr. Jesus Lunsford Basophils/100 WBC (Bld) 0.6 % Normal 0.2-2.0 [facility] Comment on above: Performed By: #### A 1C #### [facility] [address] [place] [address] Dr. eJsus Lunsford EO # 0.2 103/ul Normal 0.0-0.7 [facility] Comment on above: Performed By: #### A 1C #### [facility] [address] [place] [address] Dr. Jesus Lunsford Eosinophils/100 WBC (Bld) 1.3 % Normal 0.9-7.0 [facility] Comment on above: Performed By: #### A 1C #### [facility] [address] [place] [address] Dr. Jesus Lunsford Erythrocyte distribution width (RBC) [Ratio] 14.5 % Normal 11.0-15.0 [facility] Comment on above: Performed By: #### A 1C #### [facility] [address] [place] [address] Dr. Jesus Lunsford Hematocrit (Bld) [Volume fraction] 36.8 % Normal 36.0-48.0 [facility] Comment on above: Performed By: #### A 1C #### [facility] [address] [place] [address] Dr. Jesus Lunsford Hemoglobin (Bld) [Mass/Vol] 12.2 g/dL Normal 12.0-16.0 [facility] Comment on above: Performed By: #### A 1C #### [facility] [address] [place] [address] [address] Jesus Lunsford IG # 0.09 10e3/ul Critically high 0.00-0.03 [facility] Comment on above: Performed By: #### A 1C #### [facility] [address] [place] [address] [address] Jesus Lunsford IG % 0.7 % Critically high 0.0-0.5 [facility] Comment on above: Performed By: #### A 1C #### [facility] [address] [place] [address] [address] Jesus Lunsford LYMPH # 2.9 103/ul Normal 1.2-3.8 [facility] Comment on above: Performed By: #### A 1C #### [facility] [address] [place] [address] Dr. Jesus Lunsford Lymphocytes/100 WBC (Bld) 22.4 % Normal 20.5-60.0 [facility] Comment on above: Performed By: #### A 1C #### [facility] [address] [place] [address] Dr. Jesus Lunsford MANUAL DIFF REQ NO Normal [facility] Comment on above: Performed By: #### A 1C #### [facility] [address] [place] [address] Dr. Jesus Lunsford MCH (RBC) [Entitic mass] 32.4 pg Normal 26.7-34.0 [facility] Comment on above: Performed By: #### A 1C #### [facility] [address] [place] [address] Dr. Jesus Lunsford MCHC (RBC) [Mass/Vol] 33.2 g/dL Normal 29.9-35.2 [facility] Comment on above: Performed By: #### A 1C #### [facility] [address] [place] [address] Dr. Jesus [place] MCV (RBC) [Entitic vol] 97.9 fL Normal 81.0-99.0 [facility] Comment on above: Performed By: #### A 1C #### [facility] [address] [place] [address] Dr. Jesus Lunsford MONO # 1.6 103/ul Critically high 0.3-0.8 [facility] Comment on above: Performed By: #### A 1C #### [facility] [address] [place] [address] Dr. Jesus Lunsford Monocytes/100 WBC (Bld) 12.4 % Critically high 1.7-12. 0 [facility] Comment on above: Performed By: #### A 1C #### [facility] [address] [place] [address] Dr. Jesus Lunsford NEUT # 8.0 103/ul Critically high 1.4-6.5 [facility] Comment on above: Performed By: #### A 1C #### [facility] [address] [place] [address] Dr. Jesus Lunsford Neutrophils/100 WBC (Bld) 62.6 % Normal 43.0-75.0 [facility] Comment on above: Performed By: #### A 1C #### [facility] [address] [place] [address] Dr. Jesus Lunsford Platelet mean volume (Bld) [Entitic vol] 10.0 fL Normal 9.5-13.5 [facility] Comment on above: Performed By: #### A 1C #### [facility] [address] [place] [address] Dr. Jesus Lunsford PLT 233 103/ul Normal 150-450 [facility] Comment on above: Performed By: #### A 1C #### [facility] [address] [place] [address] Dr. Jesus Lunsford RBC 3.76 106/ul Critically low 4.20-5.40 [facility] Comment on above: Performed By: #### A 1C #### [facility] [address] [place] [address] Dr. Jesus Lunsford WBC 12.8 103/ul Critically high 4.0-11.[address] [facility] Comment on above: Performed By: #### A 1C #### [facility] [address] [place] [address] Dr. Jesus Lunsford DRUG SCREEN RAPID (URINE)on 01-15-2022 AMP Negative Normal NEGATIVE [facility] Comment on above: Performed By: #### D RUGRPD #### [facility] [address] [place] [address] Dr. Jesus Lunsford BAR Negative Normal NEGATIVE [facility] Comment on above: Performed By: #### D RUGRPD #### [facility] [address] [place] [address] Dr. Jesus Lunsford BUP Negative Normal NEGATIVE [facility] Comment on above: Performed By: #### D RUGRPD #### [facility] [address] [place] [address] Dr. Jesus Lunsford BZO Positive Abnormal NEGATIVE [facility] Comment on above: Performed By: #### D RUGRPD #### [facility] [address] [place] [address] Dr. Jesus Lunsford VENU Negative Normal NEGATIVE [facility] Comment on above: Performed By: #### D RUGRPD #### [facility] [address] [place] [address] Dr. Jesus Lunsford CUT-OFFS SEE BELOW Normal [facility] Comment on above: Result Comment: AMP [...] ng/mL Performed By: #### D RUGRPD #### [facility] [address] [place] [address] Dr. Jesus Lunsford DRUG CUT HEADER DRUG CLASS TEST SYST EM CUT-OFF CONCENTRATIONS ARE FOLLOWS: Normal [facility] Comment on above: Performed By: #### D RUGRPD #### [facility] [address] [address] [address] Jesus Lunsford mAMP Negative Normal NEGATIVE [facility] Comment on above: Performed By: #### D RUGRPD #### [facility] [address] [address] [address] Jesus Lunsford MTD Negative Normal NEGATIVE [facility] Comment on above: Performed By: #### D RUGRPD #### [facility] [address] [place] [address] Dr. Jesus Lunsford OPI Positive Abnormal NEGATIVE [facility] Comment on above: Performed By: #### D RUGRPD #### [facility] [address] [place] [address] Dr. Jesus Lunsford OXY Positive Abnormal NEGATIVE [facility] Comment on above: Performed By: #### D RUGRPD #### [facility] [address] [place] [address] Dr. Jesus Lunsford PCP Negative Normal NEGATIVE [facility] Comment on above: Performed By: #### D RUGRPD #### [facility] [address] [place] [address] Dr. Jesus Lunsford PPX Negative Normal NEGATIVE [facility] Comment on above: Performed By: #### D RUGRPD #### [facility] [address] [place] [address] Dr. Jesus Lunsford TCA Negative Normal NEGATIVE [facility] Comment on above: Performed By: #### D RUGRPD #### [facility] [address] [place] [address] Dr. Jesus Lunsford THC Negative Normal NEGATIVE [facility] Comment on above: Performed By: #### D RUGRPD #### [facility] [address] [place] [address] Dr. Jesus Lunsford ECHOCARDIO M/2D COMPLETEon 0 01-15-2022 ECHOCARDIO M/2D COMPLETE Patient: CARI HALE Exam Date: 01/15/2022 : 1965 Gender:F Ordering : SHAIKH Aleisha SHELBY . Admission #: [id number] Family : Order #: [id number] CLICK HERE TO VIEW EXAM ECHOCARDIOGRAM REPORT [...] Area(A4C): 16.10 cm2 Left Atrium Systolic Volume(A2C): 10531 mm3 Left Atrium Systolic Volume(A4C): 96886 mm3 Mitral Valve MV E to A [...] Siddiqi M.D. on 01/15/2022 at 14:43 Normal [facility] GLYCOHEMOGLOBIN A1Con 2021 ADA RECOMMENDATION SEE BELOW [facility] Comment on above: Result Comment: ADA RECOMMENDED LIMIT 4.0 - 6.0 ADA THERAPEUTIC TARGET < 7.0 ACTION SUGGESTED > 7.0 Performed By: #### A 1C #### [facility] [address] [address] [address] Jesus Lunsford Glucose [Mass/Vol] 166 mg/dL Normal [facility] Comment on above: Performed By: #### A 1C #### [facility] [address] [place], [place] [address] Dr. Jesus Lunsford HbA1c (Bld) [Mass fraction] 7.4 % Critically high 4.5-6.2 [facility] Comment on above: Performed By: #### A 1C #### [facility] [address] [address] [address] Jesus Lunsford LIPID PROFILEon 01-15-2022 CHOL-HDL RATIO NORM SEE BELOW Normal [facility] Comment on above: Result Comment: 3.3 - 4.4 LOW RISK 4.4 - 7.1 AVERAGE RISK 7.1 - 11.0 MODERATE RISK >11.0 HIGH RISK Performed By: #### L IPID #### [facility] [address] [address] [address] Jesus Lunsford Cholesterol [Mass/Vol] 144 mg/dL Normal <=200 [facility] Comment on above: Performed By: #### L IPID #### [facility] [address] [address] [address] Jesus Lunsford Cholesterol in HDL [Mass/Vol] 69 mg/dL Critically high 40-60 [facility] Comment on above: Performed By: #### L IPID #### [facility] [address] [address] [address] Jesus Lunsford Cholesterol in LDL [Mass/Vol] 67.6 mg/dL Normal [facility] Comment on above: Performed By: #### L IPID #### [facility] [address] [address] [address] Jesus Lunsford Cholesterol.total/Delmis sterol in HDL [Mass ratio] 2.1 {ratio} Normal [facility] Comment on above: Performed By: #### L IPID #### [facility] [id number] Jesus Lunsford HDL NORMAL > or = 60 mg/dl - LO W CARDIOVASCULAR RISK <40 mg/dl - HIGH CARDIOVASCULAR RISK Normal [facility] Comment on above: Performed By: #### L IPID #### [facility] [id number] Jesus Lunsford LDL CALC NORMAL SEE BELOW Normal [facility] Comment on above: Result Comment: <100 mg/dl OPTIMAL 100 - 129 mg/dl NEAR OR ABOVE OPTIMAL 130 - 159 mg/dl BORDERLINE HIGH 160 - 189 mg/dl HIGH >190 mg/dl VERY HIGH Performed By: #### L IPID #### [facility] [address] [place] [address] Dr. Jesus Lunsford Triglyceride [Mass/Vol] 37 mg/dL Normal <=150 [facility] Comment on above: Performed By: #### L IPID #### [facility] [address] [place] [address] Dr. Jesus Lunsford VLDL CALC 7.4 mg/dL Normal [facility] Comment on above: Performed By: #### L IPID #### [facility] [address] [place] [address] Dr. Jesus Lunsford POINT OF CARE GLUCOSEon 12-31 Glucose [Mass/Vol] 58 mg/dL Critically low 74-[address] [facility] Comment on above: Performed By: #### C VDTBH #### [facility] [address] [place] [address] Dr. Jesus Lunsford Glucose [Mass/Vol] 104 mg/dL Normal 74-106 [facility] Comment on above: Performed By: #### A 1C #### [facility] [address] [place] [address] Dr. Jesus Lunsford PROF CHEM 8 (BAS METB)on Anion gap [Moles/Vol] 11.2 mmol/L Normal [facility] Comment on above: Performed By: #### A 1C #### [facility] [address] [place] [address] Dr. Jesus Lunsford Calcium [Mass/Vol] 8.0 mg/dL Critically low 8.5-10.1 [facility] Comment on above: Performed By: #### A 1C #### [facility] [address] [place] [address] Dr. Jesus Lunsford Chloride [Moles/Vol] 99 mmol/L Normal 98-107 [facility] Comment on above: Performed By: #### A 1C #### [facility] [address] [place] [address] Dr. Jesus Lunsford CO2 [Moles/Vol] 27.5 mmol/L Normal 21.0-32.0 [facility] Comment on above: Performed By: #### A 1C #### [facility] [address] [place] [address] Dr. Jesus Lunsford Creatinine [Mass/Vol] 0.84 mg/dL Normal 0.55-1.02 [facility] Comment on above: Performed By: #### A 1C #### [facility] [address] [address] [address] Jesus Lunsford EGFR-AF BAHAMIAN >60 Normal >=60 [facility] Comment on above: Performed By: #### A 1C #### [facility] [address] [place] [address] Dr. Jesus Lunsford EGFR-NON AF BAHAMIAN >60 Normal >=60 [facility] Comment on above: Performed By: #### A 1C #### [facility] [address] [place] [address] Dr. Jesus Lunsford Glucose [Mass/Vol] 94 mg/dL Normal 74-106 [facility] Comment on above: Performed By: #### A 1C #### [facility] [address] [place] [address] Dr. Jesus Lunsford Potassium [Moles/Vol] 4.7 mmol/L Normal 3.5-5.1 [facility] Comment on above: Performed By: #### A 1C #### [facility] [address] [place] [address] Dr. Jesus Lunsford Sodium [Moles/Vol] 133 mmol/L Critically low 136-[address] [facility] Comment on above: Performed By: #### A 1C #### [facility] [address] [place] [address] Dr. Jesus Lunsford Urea nitrogen [Mass/Vol] 12.0 mg/dL Normal 7.0-18.0 [facility] Comment on above: Performed By: #### A 1C #### [facility] [address] [place] [address] Dr. Jesus Lunsford Urea nitrogen/Creatinine [Mass ratio] 14.3 mg/mg Normal [facility] Comment on above: Performed By: #### A 1C #### [facility] [address] [place] [address] Dr. Jesus Lunsford BNPon 01-14-2022 Natriuretic peptide B (Bld) [Mass/Vol] 721.0 pg/mL Normal <=900.0 [facility] Comment on above: Performed By: #### H STROPN, BNP, BMP #### [facility] [address] [place] [address] Dr. Jesus Lunsford CBC AUTO DIFFon 01-14-2022 BASO # 0.1 103/ul Normal 0.0-0.1 [facility] Comment on above: Performed By: #### C BC #### [facility] [address] [place] [address] Dr. Jesus Lunsford Basophils/100 WBC (Bld) 0.6 % Normal 0.2-2.0 [facility] Comment on above: Performed By: #### C BC #### [facility] [address] [place] [address] Dr. Jesus Lunsford EO # 0.2 103/ul Normal 0.0-0.7 [facility] Comment on above: Performed By: #### C BC #### [facility] [address] [place] [address] Dr. Jesus Lunsford Eosinophils/100 WBC (Bld) 1.3 % Normal 0.9-7.0 [facility] Comment on above: Performed By: #### C BC #### [facility] [address] [place] [address] Dr. Jesus Lunsford Erythrocyte distribution width (RBC) [Ratio] 14.2 % Normal 11.0-15.0 [facility] Comment on above: Performed By: #### C BC #### [facility] [address] [place] [address] Dr. Jesus Lunsford Hematocrit (Bld) [Volume fraction] 37.8 % Normal 36.0-48.0 [facility] Comment on above: Performed By: #### C BC #### [facility] [address] [place] [address] Dr. Jesus Lunsford Hemoglobin (Bld) [Mass/Vol] 13.0 g/dL Normal 12.0-16.0 [facility] Comment on above: Performed By: #### C BC #### [facility] [address] [place] [address] Dr. Jesus Lunsford IG # 0.08 10e3/ul Critically high 0.00-0.03 [facility] Comment on above: Performed By: #### C BC #### [facility] [address] [place] [address] Dr. Jesus Lunsford IG % 0.6 % Critically high 0.0-0.5 [facility] Comment on above: Performed By: #### C BC #### [facility] [address] [place] [address] Dr. Jesus Lunsford LYMPH # 2.0 103/ul Normal 1.2-3.8 [facility] Comment on above: Performed By: #### C BC #### [facility] [address] [place] [address] Dr. Jesus Lunsford Lymphocytes/100 WBC (Bld) 16.0 % Critically low 20.5-60.0 [facility] Comment on above: Performed By: #### C BC #### [facility] [address] [place] [address] Dr. Jesus Lunsford MANUAL DIFF REQ NO Normal [facility] Comment on above: Performed By: #### C BC #### [facility] [address] [place] [address] Dr. Jesus Lunsford MCH (RBC) [Entitic mass] 32.7 pg Normal 26.7-34.0 [facility] Comment on above: Performed By: #### C BC #### [facility] [address] [place] [address] Dr. Jesus Lunsford MCHC (RBC) [Mass/Vol] 34.4 g/dL Normal 29.9-35.2 [facility] Comment on above: Performed By: #### C BC #### [facility] [address] [place] [address] Dr. Jesus Lunsford MCV (RBC) [Entitic vol] 95.2 fL Normal 81.0-99.0 [facility] Comment on above: Performed By: #### C BC #### [facility] [address] [place] [address] Dr. Jesus Lunsford MONO # 0.9 103/ul Critically high 0.3-0.8 [facility] Comment on above: Performed By: #### C BC #### [facility] [address] [address] [address] Jesus Lunsford Monocytes/100 WBC (Bld) 7.3 % Normal 1.7-12.0 [facility] Comment on above: Performed By: #### C BC #### [facility] [address] [place] [address] Dr. Jesus Lunsford NEUT # 9.3 103/ul Critically high 1.4-6.5 [facility] Comment on above: Performed By: #### C BC #### [facility] [address] [place] [address] Dr. Jesus Lunsford Neutrophils/100 WBC (Bld) 74.2 % Normal 43.0-75.0 [facility] Comment on above: Performed By: #### C BC #### [facility] [address] [place] [address] Dr. Jesus Lunsford Platelet mean volume (Bld) [Entitic vol] 9.6 fL Normal 9.5-13.5 [facility] Comment on above: Performed By: #### C BC #### [facility] [address] [place] [address] Dr. Jesus Lunsford PLT 277 103/ul Normal 150-450 [facility] Comment on above: Performed By: #### C BC #### [facility] [id number] Jesus Lunsford WBC 12.5 103/ul Critically high 4.0-11.0 [facility] Comment on above: Performed By: #### C BC #### [facility] [address] [place] [address] HEAD WO CONon [...] by: JESSE FIELDS Date: 2022-01-14 17:25 Normal [facility] CTA CHEST WO W CONon 01-14-2 022 CTA CHEST WO W CON EXAMINATION: [...] JESSE FIELDS Date: 2022-01-14 13:55 Normal [facility] Covid-19 PCR (CVDTBH)on 12-31 SARS-CoV-2 (COVID-19) RNA EFRAIN+probe Ql (Unsp spec) Not detected Normal NOT DETECTED [facility] Comment on above: Result Comment: When diagnostic [...] for this test is supported by the [place] of [employer] and Human Service's declaration that [...] used). Performed By: #### C VDTB #### [facility] [address] [place] [address] Dr. Jesus Lunsford D-DIMERon 01-14-2022 D-DIMER 0.60 mg/L FEU Critically high <=0.59 [facility] Comment on above: Performed By: #### C VDTBH #### [facility] [address] [place] [address] Dr. Jesus Lunsford D-DIMER COMMENTS SEE BELOW Normal [facility] Comment on above: Result Comment: Incr [...] hospitalization. Performed By: #### C VDTBH #### [facility] [address] [place] [address] Dr. Jesus Lunsford ETHANOL (BLD ALC)on 01-15-20 ALC NOTE NOTE: 80 mg/dl is [facility] legal limit for a blood alcohol level Normal [facility] Comment on above: Performed By: #### A 1C #### [facility] [address] [place] [address] Dr. Jesus Lunsford Ethanol [Mass/Vol] mg/dL Normal [facility] Comment on above: Performed By: #### A 1C #### [facility] [address] [place] [address] Dr. Jesus Lunsford POINT OF CARE GLUCOSEon 12-31 Glucose [Mass/Vol] 215 mg/dL Critically high 74-106 [facility] Comment on above: Performed By: #### A 1C #### [facility] [address] [place] [address] Dr. Jesus Lunsford Glucose [Mass/Vol] 51 mg/dL Critically low 74-106 [facility] Comment on above: Result Comment: Will Repeat Test Performed By: #### C VDTBH #### [facility] [address] [place] [address] Dr. Jesus Lunsford Glucose [Mass/Vol] 263 mg/dL Critically high -106 [facility] Comment on above: Performed By: #### C VDTBH #### [facility] [address] [place] [address] Dr. Jesus Lunsford PROF CHEM 8 (BAS METB)on Anion gap [Moles/Vol] 12.6 mmol/L Normal [facility] Comment on above: Performed By: #### H STROPN, BNP, BMP #### [facility] [address] [place] [address] Dr. Jesus Lunsford Calcium [Mass/Vol] 8.2 mg/dL Critically low 8.5-10.1 [facility] Comment on above: Performed By: #### H ROSMERYPN, BNP, BMP #### [facility] [address] [address] [address] Jesus Lunsford Chloride [Moles/Vol] 102 mmol/L Normal 98-107 [facility] Comment on above: Performed By: #### H STROPN, BNP, BMP #### [facility] [address] [place] [address] Dr. Jesus Lunsford CO2 [Moles/Vol] 25.5 mmol/L Normal 21.0-32.0 [facility] Comment on above: Performed By: #### H STROPN, BNP, BMP #### [facility] [address] [address] [address] Jesus Lunsford Creatinine [Mass/Vol] 0.71 mg/dL Normal 0.55-1.02 [facility] Comment on above: Performed By: #### H STROPN, BNP, BMP #### [facility] [address] [place] [address] Dr. Jesus Lunsford EGFR-AF BAHAMIAN >60 Normal >=60 [facility] Comment on above: Performed By: #### H STROPN, BNP, BMP #### [facility] [address] [place] [address] Dr. Jesus Lunsford EGFR-NON AF BAHAMIAN >60 Normal >=60 [facility] Comment on above: Performed By: #### H STROPN, BNP, BMP #### [facility] [address] [place] [address] Dr. Jesus Lunsford Glucose [Mass/Vol] 145 mg/dL Critically high 74-106 [facility] Comment on above: Performed By: #### H STROPN, BNP, BMP #### [facility] [address] [place] [address] Dr. Jesus Lunsford Potassium [Moles/Vol] 4.1 mmol/L Normal 3.5-5.1 [facility] Comment on above: Performed By: #### H STROPN, BNP, BMP #### [facility] [address] [address] [address] Jesus Lunsford Sodium [Moles/Vol] 136 mmol/L Normal 136-145 [facility] Comment on above: Performed By: #### H STROPN, BNP, BMP #### [facility] [address] [address] [address] Jesus Lunsford Urea nitrogen [Mass/Vol] 6.0 mg/dL Critically low 7.0-18.0 [facility] Comment on above: Performed By: #### H STROPN, BNP, BMP #### [facility] [address] [address] [address] Jesus Lunsford Urea nitrogen/Creatinine [Mass ratio] 8.5 mg/mg Normal [facility] Comment on above: Performed By: #### H STROPN, BNP, BMP #### [facility] [address] [address] [address] Jesus Lunsford TROPONIN, HIGH SENSITIVITYon 01-14-2022 HSTROP 9.4 pg/mL Normal 4.0-51.3 [facility] Comment on above: Result Comment: CUT- OFF POINTS HAVE BEEN ESTABLISHED BASED ON THE FOURTH UNIVERSAL DEFINITIONS OF MYOCARDIAL INFARCTION. THE UPPER REFERENCE LIMIT (URL) OF TROPONIN, DEFINED THE 99TH PERCENTILE OF cTnI DISTRIBUTION IN A REFERENCE POPULATION, HAS BEEN CONFIRMED THE DECISION THRESHOLD FOR [place] DIAGNOSIS. Performed By: #### H STROPN #### [facility] [address] [address] [address] Jesus Lunsford HSTROP 9.0 pg/mL Normal 4.0-51.3 [facility] Comment on above: Result Comment: CUT- OFF POINTS HAVE BEEN ESTABLISHED BASED ON THE FOURTH UNIVERSAL DEFINITIONS OF MYOCARDIAL INFARCTION. THE UPPER REFERENCE LIMIT (URL) OF TROPONIN, DEFINED THE 99TH PERCENTILE OF cTnI DISTRIBUTION IN A REFERENCE POPULATION, HAS BEEN CONFIRMED THE DECISION THRESHOLD FOR [place] DIAGNOSIS. Performed By: #### H STROPN #### [facility] [address] [id number] [address] Jesus Lunsford HSTROP 9.3 pg/mL Normal 4.0-51.3 The [facility] Comment on above: Result Comment: CUT- OFF POINTS HAVE BEEN ESTABLISHED BASED ON THE FOURTH UNIVERSAL DEFINITIONS OF MYOCARDIAL INFARCTION. THE UPPER REFERENCE LIMIT (URL) OF TROPONIN, DEFINED THE 99TH PERCENTILE OF cTnI DISTRIBUTION IN A REFERENCE POPULATION, HAS BEEN CONFIRMED THE DECISION THRESHOLD FOR [place] DIAGNOSIS. Performed By: #### H STROPN, BNP, BMP #### [facility] [address] [address] [address] Jesus Lunsford XR CHEST 1 Von [...] by: SILVA ALMANZAR Date: 2022-01-14 12:13 Normal [facility] Vital Signs Date Time Vital Sign Value Performing Clinician Facility 03-28-2025 13:35-0400 Body temperature 98.6 [degF] Renate Diallo DO Work Phone: [facility] 03-28-2025 13:35-0400 Body weight 62.85 kg Renate Diallo DO Work Phone: [facility] [place] 03-28-2025 13:35-0400 Diastolic blood pressure 65 mm[Hg] Renate Diallo DO Work Phone: [facility] [place] 03-28-2025 13:35-0400 Heart rate 96 /min Renate Diallo DO Work Phone: [facility] [place] 03-28-2025 13:35-0400 Respiratory rate 20 /min Renate Diallo DO Work Phone: [facility] [place] 03-28-2025 13:35-0400 SaO2% (BldA) [Mass fraction] 99 % Renate Diallo DO Work Phone: [facility] [place] 03-28-2025 13:35-0400 Systolic blood pressure 122 mm[Hg] Renate Diallo DO Work Phone: [facility] [place] 03-15-2025 09:01-0400 Body height 156.21 cm Renate Diallo DO Work Phone: [facility] [place] 03-15-2025 09:01-0400 Body mass index (BMI) [Ratio] 25.2 kg/m2 Renate Diallo DO Work Phone: [facility] [place] 03-15-2025 09:01-0400 Body temperature 97.6 [degF] Renate Diallo DO Work Phone: [facility] [place] 03-15-2025 09:01-0400 Body weight 61.68 kg Renate Diallo DO Work Phone: [facility] 03-15-2025 09:01-0400 Diastolic blood pressure 81 mm[Hg] Renate Diallo DO Work Phone: [facility] [place] 03-15-2025 09:01-0400 Heart rate 91 /min Renate Diallo DO Work Phone: [facility] [place] 03-15-2025 09:01-0400 Respiratory rate 20 /min Renate Diallo DO Work Phone: [facility] 03-15-2025 09:01-0400 SaO2% (BldA) [Mass fraction] 98 % Renate Diallo DO Work Phone: [facility] 03-15-2025 09:01-0400 Systolic blood pressure 144 mm[Hg] Renate Diallo DO Work Phone: [facility] [place] 01-15-2025 14:11-0400 Body height 156.21 cm Renate Diallo DO Work Phone: [facility] [place] 01-15-2025 14:11-0400 Body mass index (BMI) [Ratio] 25 kg/m2 Renate Diallo DO Work Phone: [facility] [place] 01-15-2025 [id number] Body weight 61.23 kg Renate Diallo DO Work Phone: [facility] [place] 01-15-2025 14:11-0400 Diastolic blood pressure 72 mm[Hg] Renate Diallo DO Work Phone: [facility] [place] 01-15-2025 14:11-0400 Heart rate 108 /min Renate Diallo DO Work Phone: [facility] [place] 01-15-2025 14:11-0400 Systolic blood pressure 149 mm[Hg] Renate Diallo DO Work Phone: [facility] [place] 12-10-2024 19:53-0400 Diastolic blood pressure 80 mm[Hg] Renate Diallo DO Work Phone: [facility] [place] 12-10-2024 19:53-0400 Heart rate 108 /min Renate Diallo DO Work Phone: [facility] [place] 12-10-2024 19:53-0400 Respiratory rate 18 /min Renate Diallo DO Work Phone: [facility] [place] 12-10-2024 19:53-0400 SaO2% (BldA) [Mass fraction] 94 % Renate Diallo DO Work Phone: [facility] [place] 12-10-2024 19:53-0400 Systolic blood pressure 125 mm[Hg] Renate Diallo DO Work Phone: [facility] [place] 12-10-2024 16:00-0400 Body temperature 98.4 [degF] Renate Diallo DO Work Phone: [facility] 12-10-2024 16:00-0400 Inhaled oxygen flow rate 1 L/min Renate Diallo DO Work Phone: [facility] [place] 12-10-2024 06:00-0400 Body weight 62.4 kg Renate Diallo DO Work Phone: [facility] [place] 12-08-2024 08:04-0400 Body height 156.21 cm Renate Diallo DO Work Phone: [facility] [place] 11-23-2024 16:10-0400 Body height 156.2 cm Katarzyna Castro MD Work Phone: [facility] 11-23-2024 16:10-0400 Body mass index (BMI) [Ratio] 24.91 kg/m2 Katarzyna Castro MD Work Phone: [facility] 11-23-2024 16:10-0400 Body weight 60.78 kg Katarzyna Castro MD Work Phone: [facility] 11-23-2024 16:10-0400 Diastolic blood pressure 60 mm[Hg] Katarzyna Castro MD Work Phone: [facility] 11-23-2024 16:10-0400 Heart rate 60 /min Katarzyna Castro MD Work Phone: [facility] 11-23-2024 16:10-0400 Systolic blood pressure 102 mm[Hg] Katarzyna Castro MD Work Phone: [facility] 11-17-2024 11:06-0400 Diastolic blood pressure 63 mm[Hg] Renate Diallo DO Work Phone: [facility] [place] 11-17-2024 11:06-0400 Heart rate 97 /min Renate Diallo DO Work Phone: [facility] 11-17-2024 11:06-0400 Systolic blood pressure 149 mm[Hg] Renate Diallo DO Work Phone: [facility] 11-09-2024 11:14-0400 Diastolic blood pressure 64 mm[Hg] Eleanor Phelps MD Work Phone: [facility] 11-09-2024 11:14-0400 Systolic blood pressure 112 [...] 157.5 cm Lissa Murcek DO Work Phone: [facility] 11-01-2024 13:08-0400 Body mass index (BMI) [Ratio] 25.61 kg/m2 Lissa Murcek DO Work Phone: [facility] 11-01-2024 13:08-0400 Body weight 63.5 kg Lissa Murcek DO Work Phone: [facility] 10-30-2024 14:25-0400 Body height 157.5 cm Lissa Murcek DO Work Phone: [facility] 10-30-2024 14:25-0400 Body mass index (BMI) [Ratio] 25.61 kg/m2 Lissa Murcek DO Work Phone: [facility] 10-30-2024 14:25-0400 Body weight 63.5 kg Lissa Murcek DO Work Phone: [facility] 10-26-2024 09:56-0400 Diastolic blood pressure 72 mm[Hg] Katarzyna Castro MD Work Phone: [facility] 10-26-2024 09:56-0400 Heart rate 80 /min Katarzyna Castro MD Work Phone: [facility] 10-26-2024 09:56-0400 Systolic blood pressure 108 mm[Hg] Katarzyna Castro MD Work Phone: [facility] 10-26-2024 09:54-0400 Body height 158.8 cm Katarzyna Castro MD Work Phone: [facility] 10-26-2024 09:54-0400 Body mass index (BMI) [Ratio] 23.94 kg/m2 Katarzyna Castro MD Work Phone: [facility] 10-26-2024 09:54-0400 Body weight 60.33 kg Katarzyna Castro MD Work Phone: [facility] 10-09-2024 12:55-0400 Diastolic blood pressure 71 mm[Hg] [place] [address] [facility] [employer] 10-09-2024 12:55-0400 Heart rate 85 /min [place] 2 [facility] [employer] 10-09-2024 12:55-0400 Respiratory rate 22 /min [place] [facility] [employer] 10-09-2024 12:55-0400 SaO2% (BldA) [Mass fraction] 94 % [place] 2 [facility] 10-09-2024 12:55-0400 Systolic blood pressure 148 mm[Hg] [place] 2 [facility] 10-09-2024 10:12-0400 Body temperature 98.2 [degF] [place] [facility] 03-22-2024 17:21-0400 Hourly Rounding Lee Juan [facility] 03-22-2024 17:21-0400 Promise to Return Lee Juan [facility] 03-22-2024 16:00-0400 Hourly Rounding Lee Juan [facility] 03-22-2024 16:00-0400 Promise to Return Lee Juan [facility] 03-22-2024 15:35-0400 Heart rate 86 /min Lee Juan [facility] 03-22-2024 15:35-0400 Respiratory rate 20 /min Lee Juan [facility] 03-22-2024 15:28-0400 Heart rate 85 /min Lee Juan [facility] 03-22-2024 15:28-0400 Respiratory rate 20 /min Lee Juan [facility] 03-22-2024 15:28-0400 SaO2% (BldA) [Mass fraction] 95 % Lee Martinez [facility] 03-22-2024 15:00-0400 Hourly Rounding Lee Martinez [facility] 03-22-2024 15:00-0400 Promise to Return Lee Martinez [facility] 03-22-2024 12:39-0400 Heart rate 78 /min Lee Newtoner [facility] 03-22-2024 12:39-0400 SaO2% (BldA) [Mass fraction] 95 % Lee Martinez [facility] 03-22-2024 12:39-0400 Diastolic blood pressure 68 mm[Hg] Lee Martinez [facility] 03-22-2024 12:39-0400 Mean blood pressure 80 mm[Hg] Lee Newtoner [facility] 03-22-2024 12:39-0400 Systolic blood pressure 104 mm[Hg] Lee Martinez [facility] 03-22-2024 12:39-0400 Body temperature 98.06 [degF] Lee Newtoner [facility] 03-22-2024 12:02-0400 Respiratory rate 20 /min Lee Newtoner [facility] 03-22-2024 08:16-0400 SaO2% (BldA) [Mass fraction] 96 % Lee Newtoner [facility] 03-22-2024 08:06-0400 Body temperature 97.88 [degF] Lee Juan [facility] 03-22-2024 08:05-0400 Diastolic blood pressure 77 mm[Hg] Lee Newtoner [facility] 03-22-2024 08:05-0400 Mean blood pressure 90 mm[Hg] Lee Newtoner [facility] 03-22-2024 08:05-0400 Systolic blood pressure 117 mm[Hg] Lee Newtoner [facility] 03-22-2024 03:50-0400 Diastolic blood pressure 78 mm[Hg] Lee Newtoner [facility] 03-22-2024 03:50-0400 Systolic blood pressure 127 mm[Hg] Lee Newtoner [facility] 03-22-2024 01:59-0400 Mean blood pressure 84 mm[Hg] Lee Newtoner [facility] 03-22-2024 01:59-0400 Body temperature 98.42 [degF] Lee Newtoner [facility] 03-21-2024 19:59-0400 Body temperature 98.24 [degF] Lee Newtoner [facility] 03-21-2024 19:59-0400 Heart rate 99 /min Lee Hathawaycker [facility] 03-21-2024 19:03-0400 Mean blood pressure 102 mm[Hg] Lee Hathawaycker [facility] 03-21-2024 19:03-0400 Respiratory rate 15 /min Lee Hathawaycker [facility] 03-21-2024 17:37-0400 Mean blood pressure 95 mm[Hg] Lee Hathawaycker [facility] 03-21-2024 17:37-0400 Respiratory rate 16 /min Lee Martinez [facility] 03-21-2024 16:13-0400 gluc 281 mg/dL Lee Martinez [facility] 03-21-2024 16:00-0400 Mean blood pressure 75 mm[Hg] Lee Martinez [facility] 03-21-2024 14:09-0400 gluc 83 mg/dL Lee Martinez [facility] 03-21-2024 14:09-0400 gluc Lee Martinez [facility] 03-21-2024 13:54-0400 Body temperature 98.42 [degF] Lee Martinez [facility] 03-21-2024 13:54-0400 Heart rate 101 /min Lee Martinez [facility] 03-21-2024 13:39-0400 gluc 83 mg/dL Lee Martinez [facility] 03-16-2024 10:54-0400 Body height 157.5 cm Eleanor [...] 58.42 kg Eleanor Phelps MD Work Phone: [facility] 01-13-2024 10:54-0400 Diastolic blood pressure 83 mm[Hg] Eleanor Phelps MD Work Phone: [facility] 01-13-2024 10:54-0400 Heart rate 90 /min Eleanor Phelps MD Work Phone: [facility] 01-13-2024 10:54-0400 Systolic blood pressure 141 mm[Hg] Eleanor Phelps MD Work Phone: [facility] 12-31-2022 15:43-0400 Blood Pressure Location Renate DIALLO [facility] [place] 12-31-2022 15:43-0400 Diastolic blood pressure 66 mm[Hg] Renate DIALLO [facility] 12-31-2022 15:43-0400 Heart rate 83 /min Renate DIALLO [facility] 12-31-2022 15:43-0400 Respiratory rate 16 /min Renate DIALLO [facility] 12-31-2022 15:43-0400 SaO2% (BldA) [Mass fraction] 96 % Renate DIALLO [facility] 12-31-2022 15:43-0400 Systolic blood pressure 120 mm[Hg] Renate DIALLO [facility] 12-31-2022 15:07-0400 Blood Pressure Location Renate DIALLO [facility] 12-31-2022 15:07-0400 Body temperature 97.52 [degF] Renate DIALLO [facility] 12-31-2022 15:07-0400 Diastolic blood pressure 66 mm[Hg] Renate DIALLO [facility] 12-31-2022 15:07-0400 Heart rate 83 /min Renate DIALLO [facility] 12-31-2022 15:07-0400 SaO2% (BldA) [Mass fraction] 96 % Renate DIALLO [facility] 12-31-2022 15:07-0400 Systolic blood pressure 120 mm[Hg] Renate DIALLO [facility] 10-13-2022 15:03-0400 Diastolic blood pressure 62 mm[Hg] DO Renate Diallo Work Phone: [facility] 10-13-2022 15:03-0400 Heart rate 74 /min DO Renate Logan Work Phone: [facility] 10-13-2022 15:03-0400 Respiratory rate 16 /min DO Renate Diallo Work Phone: [facility] 10-13-2022 15:03-0400 SaO2% (BldA) [Mass fraction] 99 % DO Renaet Diallo Work Phone: [facility] [place] 10-13-2022 15:03-0400 Systolic blood pressure 122 mm[Hg] DO Renate Diallo Work Phone: [facility] [place] 10-13-2022 13:16-0400 Body height 157.48 cm DO Renate Diallo Work Phone: [facility] 10-13-2022 13:16-0400 Body temperature 98.2 [degF] DO Renate Diallo Work Phone: [facility] [place] 10-13-2022 13:16-0400 Body weight 58.96 kg DO Renate Diallo Work Phone: [facility] [place] 05-12-2022 15:37-0400 Blood Pressure Location Renate DIALLO [facility] 05-12-2022 15:37-0400 Body temperature 97.7 [degF] Renate DIALLO [facility] 05-12-2022 15:37-0400 Diastolic blood pressure 80 mm[Hg] Renate DIALLO [facility] 05-12-2022 15:37-0400 Heart rate 108 /min Renate DIALLO [facility] 05-12-2022 15:37-0400 SaO2% (BldA) [Mass fraction] 98 % Renate DIALLO [facility] 05-12-2022 15:37-0400 Systolic blood pressure 136 mm[Hg] Renate DIALLO [facility] 10-29-2021 16:15-0400 Body weight 58.97 kg Geovanny Schaffer Other [facility] [employer] Other Encounters Encounter Date Encounter Type Care Provider Facility Start: 03-28-2025 Registered Recurring Genie Bass MD -[facility] Acute Work Phone: Start: 03-28-2025 ambulatory Mac Stefanochristine Facility:[facility] Start: 03-28-2025 End: 03-28-2025 ambulatory Renate Diallo DO Work Phone: [facility] Work Phone: Start: 03-28-2025 End: 03-28-2025 Patient encounter procedure Noble Tipton MD -[facility] Ambulatory Work Phone: Start: 03-28-2025 Registered Recurring Genie Bass MD -Pet Scan Work Phone: Start: 03-15-2025 Registered Recurring Genie Bass MD -[facility] Acute Work Phone: Start: 03-15-2025 End: 03-15-2025 ambulatory Renate Diallo DO Work Phone: [facility] Work Phone: Start: 03-15-2025 End: 03-15-2025 Patient encounter procedure Noble Tipton MD -[facility] Work Phone: Start: 02-23-2025 End: 02-24-2025 Clinisync Result Encounter Eleanor Phelps MD Work Phone: [facility] Unsolicited Start: 02-23-2025 End: 02-24-2025 Clinisync Result Encounter Eleanor Phelps MD Work Phone: [facility] External [facility] Unsolicited Start: 01-15-2025 End: 01-15-2025 Patient encounter procedure Oren Avila APRN -[facility] Work Phone: Start: 12-08-2024 Non-patient / Non-visit Renate Diallo DO Work Phone: [facility] Work Phone: Start: 12-08-2024 End: 12-10-2024 Evaluation and management of inpatient Renate Diallo DO Work Phone: [facility] Work Phone: Start: 12-05-2024 End: 12-05-2024 Patient encounter procedure Renate Diallo DO Work Phone: [facility]-Pre-Surgical Testing Work Phone: Start: 12-05-2024 End: 12-05-2024 ambulatory Renate Diallo DO Work Phone: [facility] Work Phone: Start: 12-05-2024 Encounter for preprocedural laboratory examination Mac Ortiz [facility] Start: 11-23-2024 End: 11-23-2024 ambulatory KATARZYNA CASTRO [facility] Start: 11-23-2024 End: 11-23-2024 Office outpatient visit 25 minutes Katarzyna Castro MD Work Phone: [facility] Comment on above: Pre-operative cleara nce; Cardiomyopathy, ischemic; Type 1 diabetes mellitus without complication; Hx of myocardial infarction; Dyspnea on exertion; Mixed hyperlipidemia; Coronary artery disease involving [place] coronary artery of [place] heart, unspecified whether angina present; Mitral valve insufficiency, unspecified etiology; Abnormal echocardiogram; Snoring; Depression, unspecified depression type; Anxiety; Tobacco abuse; BMI 24.0-24.9, adult; Hypothyroidism, unspecified type Start: 11-23-2024 End: 11-23-2024 Preoperative state Katarzyna Castro MD Work Phone: [facility] Start: 11-17-2024 End: 11-17-2024 Patient encounter procedure Renate Logan CRUZ Work Phone: [facility] Work Phone: Start: 11-17-2024 End: 11-17-2024 ambulatory Renate Diallo DO Work Phone: [facility] Work Phone: Start: 11-17-2024 Encounter for other preprocedural examination Katarzyna Castro The [facility] Start: 11-16-2024 End: 11-16-2024 Patient encounter procedure Renate Diallo DO Work Phone: [facility] Work Phone: Start: 11-16-2024 End: 11-16-2024 Orders Only Sharda Lobo CMA [facility] Comment on above: Aortic valve stenosi s, etiology of cardiac valve disease unspecified (Primary Dx); Cigarette smoker motivated to quit; Stenosis of aorta; 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 ([facility]); PVD (peripheral vascular disease); PAD (peripheral [...] Start: 10-30-2024 End: 10-30-2024 Bamboo flowsheet Lissa W Maricruzcek DO Work Phone: [facility] Start: 10-30-2024 End: 10-30-2024 Bamboo flowsheet Lissa W Peterk DO Work Phone: [facility] Start: 10-30-2024 End: 10-30-2024 Office outpatient new 45 minutes Lissa Janeth Faisal CRUZ Work Phone: [facility] Comment on above: Neck mass Start: 10-26-2024 End: 10-26-2024 ambulatory [facility] Start: 10-26-2024 End: 10-26-2024 Encounter for other preprocedural examination [facility] Start: 10-26-2024 End: 10-26-2024 Office outpatient new 60 minutes Katarzyna Castro MD Work Phone: [facility] Comment on above: Pre-operative cleara nce (Primary Dx); Cardiomyopathy, ischemic; Mixed hyperlipidemia; Coronary artery disease involving [place] coronary artery of [place] heart, unspecified whether angina present; Mitral valve [...] Preoperative state Katarzyna Castro MD Work Phone: [facility] Work Phone: Start: 10-09-2024 End: 10-11-2024 ambulatory DEBI DAVE [facility] Start: 10-09-2024 End: 10-11-2024 Subsequent hospital visit by physician [place] Xray Room 8 [facility] Radiology Comment on above: Arrived Start: 10-09-2024 End: 10-11-2024 ambulatory COLE DUMONT [facility] Start: 10-09-2024 End: 10-11-2024 Subsequent hospital visit by physician John Xray Room 7 [facility] Radiology Comment on above: Mass of left lung Start: 10-09-2024 End: 10-11-2024 ambulatory COLE DUMONT [facility] Start: 10-09-2024 End: 10-11-2024 Subsequent hospital visit by physician Debi Dave MD Work Phone: [facility] CT Scan Comment on above: Mass of left lung Start: 10-05-2024 End: 10-05-2024 Telephone encounter Eleanor Phelps MD Work Phone: [facility] Start: 10-04-2024 End: 10-04-2024 Orders Only Sharda Urban [facility] Comment on above: [...] Start: 08-16-2024 End: 08-18-2024 ambulatory RENATE DIALLO [facility] Start: 08-16-2024 End: 08-18-2024 Subsequent hospital visit by physician Samuel Cuba (Mobile) [facility] Imaging CT Scan Comment on above: Mass of left lung; Abnormal CT scan, chest Start: 03-23-2024 End: 03-29-2024 Refill Eleanor Phelps MD Work Phone: [facility] Start: 03-23-2024 End: 03-31-2024 ambulatory [employer] Flora Escalera Facility:[id number] Start: 03-21-2024 End: 03-22-2024 ambulatory Lee Martinez [facility] Start: 03-21-2024 Emergency department patient visit Han Olivera Facility[facility] Start: 03-21-2024 End: 03-22-2024 Observation Lee Martinez [facility] Start: 03-16-2024 End: 03-16-2024 Office outpatient visit 15 minutes Eleanor Phelps MD Work Phone: [facility] Comment on above: 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 ([facility]) (Primary Dx); Cigarette smoker motivated to quit; Stenosis of aorta Start: 03-15-2024 End: 03-15-2024 ambulatory [facility] Facility:[facility] Start: 02-24-2024 End: 02-24-2024 Orders Only Ximena [facility]inton [facility] Comment on above: PVD (peripheral vasc ular disease) ([facility]) (Primary Dx); 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 Start: 02-10-2024 End: 02-10-2024 Office outpatient visit 25 minutes Eleanor Phelps MD Work Phone: [facility] Comment on above: 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 ([facility]) (Primary Dx); Cigarette smoker motivated to quit; Aortic valve stenosis, etiology of cardiac valve disease unspecified Start: 01-25-2024 End: 01-25-2024 Orders Only Eleanor Phelps MD Work Phone: [facility] Comment on above: PAD (peripheral phil ry disease) ([facility]) (Primary Dx) Start: 01-24-2024 End: 01-24-2024 Telephone encounter Eleanor Phelps MD Work Phone: [facility] Start: 01-13-2024 End: 01-13-2024 Telephone encounter [facility] Comment on above: Med Refill Start: 01-13-2024 End: 01-13-2024 Office outpatient new 45 minutes Eleanor Phelps MD Work Phone: [facility] Comment on above: Cigarette smoker mot ivated to quit (Primary Dx); PVD (peripheral vascular disease) ([facility]); 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 ([facility]) Start: 01-03-2024 ambulatory Renate DIALLO Facilit y:[facility] Start: 09-24-2023 ambulatory Flora L José Miguel Facility: [facility] [place] Start: 09-15-2023 End: 09-15-2023 ambulatory Flora L José Miguel Facility:[facility] [place] [facility] Start: 07-28-2023 End: 07-28-2023 ambulatory Oren Jones Other [employer] Other Start: 07-28-2023 Telephone encounter Oren Davis [facility] Start: 06-09-2023 End: 06-09-2023 ambulatory Flora L José Miguel Facility:[facility] [place] [facility] Start: 05-25-2023 ambulatory Flora José Miguel Facility:[facility] [place] Start: 05-25-2023 End: 05-25-2023 ambulatory Flora L José Miguel Facility:[facility] [place] [facility] Start: 03-18-2023 End: 03-18-2023 ambulatory Oren Jones Other [employer] Other Start: 03-18-2023 Telephone encounter Oren [facility] Start: 02-16-2023 End: 02-16-2023 Patient encounter procedure MILO CAMPOS [facility] [place] Start: 01-22-2023 End: 01-22-2023 Patient encounter procedure Renate DIALLO [facility] Start: 01-19-2023 End: 01-21-2023 Pre-admission assessment Renate DIALLO [facility] Start: 01-14-2023 End: 01-14-2023 ambulatory Oren Jones Other [employer] Other Start: 01-14-2023 Telephone encounter [facility] Start: 12-31-2022 End: 12-31-2022 Patient encounter procedure Renate DIALLO [facility] Start: 12-31-2022 End: 12-31-2022 Well adult monitoring check done Renate DIALLO [facility] Start: 11-18-2022 End: 11-18-2022 ambulatory Oren Jones Other [employer] Other Start: 11-18-2022 Telephone encounter O[facility] Start: 10-22-2022 End: 10-22-2022 ambulatory Geovanny Schaffer Other [employer] Other Start: 10-22-2022 Telephone encounter Geovanny BENNETT [facility] Start: 10-14-2022 End: 10-14-2022 ambulatory Geovanny Schaffer Other [employer] Other Start: 10-14-2022 Telephone encounter Geovanny BENNETT [facility] Start: 10-13-2022 End: 10-13-2022 Admission to same day surgery center DO Renate Diallo Work Phone: [facility] Work Phone: Start: 10-13-2022 End: 10-13-2022 ambulatory DO Renate Diallo Work Phone: [facility] Work Phone: Start: 09-22-2022 End: 09-22-2022 ambulatory Geovanny Hientessa Other [employer] Other Start: 09-22-2022 Telephone encounter Geovanny BENNETT [facility] Start: 06-03-2022 End: 06-03-2022 Patient encounter procedure Renate DIALLO [facility] Start: 05-12-2022 End: 05-12-2022 Patient encounter procedure Renate DIALLO [facility] Start: 01-14-2022 End: 01-15-[address] NONE LISTED REQUEST Facility: Start: 11-13-2021 End: 11-13-2021 ambulatory Geovanny Schaffer Other [employer] Other Start: 11-13-2021 Telephone encounter Geovanny BENNETT [facility] Start: 10-29-2021 End: 10-29-2021 ambulatory Geovanny Hientessa Other [employer] Other Start: 10-29-2021 [facility] visit new patient Geovanny Hientessa [facility] Procedures Date Procedure Procedure Detail Performing Clinician Start: 03-28-2025 Positron emission tomography with computed tomography Renate Diallo DO Work Phone: Start: 03-26-2025 MRI of head Renate guillory DO Work Phone: Start: 02-23-2025 SEGMENTAL BLOOD PRESSURE Eleanor Phelps MD Work Phone: Start: 12-10-2024 Plain chest X-ray Grant Diallo DO Work Phone: Start: 12-10-2024 Plain chest X-ray Grant Diallo DO Work Phone: Start: 12-09-2024 Plain chest X-ray Grant Diallo DO Work Phone: Start: 12-08-2024 Plain chest X-ray Grant Diallo DO Work Phone: Start: 12-08-2024 Incision of chest wall Renate Diallo DO Work Phone: Start: 12-05-2024 Antibody screen Mac gaviria Comment on above: Order Comment: Date of Surgery: [id number] Result Comment: PERF ORMED BY: [facility] [address] [place] [address] PATHOLOGIST SENIOR SOFTWARE ENGINEER ELEANOR HERNÁNDEZ M.D. Start: 11-17-2024 Radionuclide myocard [...] Phone: Start: 01-17-2018 Caudal CHAVO 1 Renate GUILLORY Comment on above: 80% reflief for abou t 3 weeks. Start: 12-06-2017 caudal CHAVO 2 Renate PERALES ANT Comment on above: 80% relief for [...] 10-14-2027 Screening for malignant neoplasm of colon [facility] Start: 07-18-2026 Screening for malignant neoplasm of breast Breast cancer screen [facility] Start: 11-09-2025 Adult BMI Screening Adult BMI Screening [facility] Start: 11-09-2025 Tobacco Screening Tobacco Screening [facility] Start: 10-23-2025 Screening for malignant neoplasm of cervix [facility] Start: 10-09-2025 Screening for malignant neoplasm of lung Lung Cancer Screening &/or Counseling [facility] Start: 08-16-2025 Screening for malignant neoplasm of lung Lung Cancer Screening &/or Counseling [facility] Start: 06-27-2025 Hemoglobin A1c measurement A1C test (Diabetic or Prediabetic) [facility] Start: 06-07-2025 End: 06-07-2025 Patient encounter procedure 06/07/2025 3:15 PM EST Office Visit [facility] [address] [facility] [address] [place] [address] Katarzyna Castro MD [address] [facility] [address] [place], [place] [id number] [facility] Start: 04-04-2025 Depression Monitoring Depression Monitoring [facility] Start: 04-02-2025 Influenza vaccination [facility] Start: 03-28-2025 Diabetic foot examination [facility] Start: 03-28-2025 Patient referral [facility] Work Phone: Start: 03-16-2025 Adult BMI Screening Adult BMI [...] Start: 12-26-2024 End: 12-26-2024 Patient encounter procedure [facility] Comment on above: 6 mo f/u Start: 12-10-2024 [facility] Start: 12-08-2024 Hospital admission [facility] Start: 12-08-2024 Consultation [facility] Start: 12-08-2024 Referral to clinical tube coremaker [facility] Start: 11-23-2024 End: 11-23-2025 CBC panel - Blood by Automated count CBC Lab Routine Cardiomyopathy, ischemic Type 1 diabetes mellitus without complication Hx of myocardial infarction Expected: 11/23/2024, Expires: 11/23/2025 [facility] Work Phone: Comment on above: Expected: 11/23/2024, Expires: Start: 11-23-2024 End: 11-23-2025 Comprehensive metabolic 2000 panel - Serum or Plasma Comprehensive Metabolic Panel Lab Routine Type 1 diabetes mellitus without complication Expected: 11/23/2024, Expires: 11/23/2025 [facility] Service Area Work Phone: Comment on above: Expected: 11/23/2024, Expires: Start: 11-23-2024 End: 11-23-2025 Lipid 1996 panel - Serum or Plasma Lipid Panel Lab Routine Mixed hyperlipidemia Expected: 11/23/2024, Expires: 11/23/2025 [facility] Work Phone: Comment on above: Expected: 11/23/2024, Expires: Start: 11-23-2024 End: 11-23-2025 Thyrotropin [Units/volume] in Serum or Plasma Thyroid Stimulating Hormone Lab Routine Dyspnea on exertion Mixed hyperlipidemia Hypothyroidism, unspecified type Expected: 11/23/2024, Expires: 11/23/2025 [facility] Work Phone: Comment on above: Expected: 11/23/2024, Expires: Start: 11-17-2024 Radionuclide myocardial perfusion stress study NM german perf SPECT rest & str [facility] Start: 11-09-2024 End: 11-09-2025 US.doppler Extremity arteries [...] 1:45 PM EDT Office Visit [facility] [address] [place] [phone] Lissa Malone, [address] [place] [address] [facility] Start: 10-30-2024 End: 10-30-2025 CT Neck W contrast IV CT soft tissue neck w IV contrast Imaging STAT Neck mass Expected: 10/30/2024, Expires: 10/30/2025 [facility] Work Phone: Comment on above: Expected: 10/30/2024, Expires: Start: 10-26-2024 End: 10-26-2025 Alanine aminotransferase [Enzymatic activity/volume] in Serum or Plasma by With P-5'-P Alanine Aminotransferase Lab Routine Mixed hyperlipidemia Expected: 10/26/2024, Expires: 10/26/2025 [facility] Work Phone: Comment on above: Expected: 10/26/2024, Expires: Start: 10-26-2024 End: 10-26-2025 Aspartate aminotransferase [Enzymatic activity/volume] in Serum or Plasma by With P-5'-P Aspartate Aminotransferase Lab Routine Mixed hyperlipidemia Expected: 10/26/2024, Expires: 10/26/2025 [facility] Work Phone: Comment on above: Expected: 10/26/2024, Expires: Start: 10-26-2024 End: 10-26-2025 Basic metabolic 2000 panel - Serum or Plasma Basic Metabolic Panel Lab Routine Cardiomyopathy, ischemic Type 2 diabetes mellitus without complication, with long-term current use of insulin (Multi) Expected: 10/26/2024 (Approximate), Expires: 10/26/2025 [facility] Work Phone: Comment on above: Expected: 10/26/2024 (Approximate), Expi res: 10/26/2025 Start: 10-26-2024 End: 10-26-2025 CBC panel - Blood by Automated count CBC Lab Routine Cardiomyopathy, ischemic Coronary artery disease involving [place] coronary artery of [place] heart, unspecified whether angina present Expected: 10/26/2024, Expires: 10/26/2025 [facility] Work Phone: Comment on above: Expected: 10/26/2024, Expires: Start: 10-26-2024 End: 10-26-2025 Hemoglobin A1c/Hemoglobin.total in Blood Hemoglobin A1C Lab Routine Type 2 diabetes mellitus without complication, with long-term current use of insulin (Multi) Expected: 10/26/2024 (Approximate), Expires: 10/26/2025 [facility] Work Phone: Comment on above: Expected: 10/26/2024 (Approximate), Expi res: 10/26/2025 Start: 10-26-2024 End: 10-26-2025 Lipid 1996 panel - Serum or Plasma Lipid Panel Lab Routine Mixed hyperlipidemia Expected: 10/26/2024, Expires: 10/26/2025 [facility] Work Phone: Comment on above: Expected: 10/26/2024, Expires: Start: 10-26-2024 End: 10-26-2025 Magnesium [Mass/volume] in Serum or Plasma Magnesium Lab Routine Cardiomyopathy, ischemic Coronary artery disease involving [place] coronary artery of [place] heart, unspecified whether angina present Expected: 10/26/2024, Expires: 10/26/2025 [facility] Work Phone: Comment on above: Expected: 10/26/2024, Expires: Start: 10-26-2024 End: 10-26-2026 NM Heart Perfusion W stress and W radionuclide IV Nuclear Stress Test Cardiac Nuclear Medicine Routine Pre-operative clearance Cardiomyopathy, ischemic Coronary artery disease involving [place] coronary artery of [place] heart, unspecified whether angina present Dyspnea on exertion Chest pain, unspecified type Expected: 10/26/2024 (Approximate), Expires: 10/26/2026 [facility] Service Area Work Phone: Comment on above: Expected: 10/26/2024 (Approximate), Expi res: 10/26/2026 Start: 10-26-2024 End: 10-26-2025 Thyrotropin [Units/volume] in Serum or Plasma Thyroid Stimulating Hormone Lab Routine Type 2 diabetes mellitus without complication, with long-term current use of insulin (Multi) Expected: 10/26/2024 (Approximate), Expires: 10/26/2025 [facility] Work Phone: Comment on above: Expected: 10/26/2024 (Approximate), Expi res: 10/26/2025 Start: 10-26-2024 End: 10-26-2026 Heart Transthoracic Transthoracic Echo Complete Echocardiography Routine Cardiomyopathy, ischemic Coronary artery disease involving [place] coronary artery of [place] heart, unspecified whether angina present Mitral valve insufficiency, unspecified etiology Dyspnea on exertion Chest pain, unspecified type Expected: 10/26/2024 (Approximate), Expires: 10/26/2026 [facility] Work Phone: Comment on above: Expected: 10/26/2024 (Approximate), Expi res: 10/26/2026 Start: 10-26-2024 End: 10-26-2024 Patient encounter procedure 10/26/2024 10:50 AM EDT Office [facility] [address] [place] [phone] Eleanor Phelps MD [address], [address] [address] [facility] Start: 10-23-2024 End: 10-23-2024 Patient encounter procedure 10/23/2024 1:30 PM EDT Office Visit [facility] [facility] [address] [place] [address] Mac Turner MD [address] [place] [address] [address] [place] [address] [employer], iatrogenic pneumothorax [facility] Comment on above: [employer], iatrogenic pneumothorax Start: 10-04-2024 End: 10-04-2025 US.doppler [...] 11:20 AM EST Office Visit [facility] [address] [place] [phone] Eleanor Phelps MD [address], [address] [address] [facility] Start: 08-02-2024 Annual Wellness Visit (Medicare Advantage) Annual Wellness Visit (Medicare Advantage) [facility] Start: 04-02-2024 COVID-19 Vaccine ( season) COVID-19 Vaccine ( season) [employer] Start: 04-02-2024 COVID-19 Vaccine ( season) COVID-19 Vaccine ( season) [employer] [facility] Start: 04-02-2024 Influenza vaccination [facility] [employer] [facility] Start: 03-09-2024 End: 03-09-2024 Patient encounter procedure 03/09/2024 8:40 AM EDT Office Visit [facility] [address] [place] [address] Eleanor Phelps MD [address], [address] [address] (Work) [facility] Start: 03-02-2024 Influenza vaccination Flu vaccine (#1) [facility] Start: 02-22-2024 End: 02-22-2024 Admission to same day surgery center 02/22/2024 1:30 PM EDT - 02/22/2024 3:30 PM EDT Surgery [facility] [address] [place] [phone] Eleanor Phelps MD [address], [address] [address] (Work) AORTOGRAM WITH RUNOFF (AORTIC STENT WITH SHOCKWAVE INTRAVASCULAR LITHOTRIPSY) [facility] Comment on above: AORTOGRAM WITH [...] physician 02/22/2024 1:30 PM EDT Hospital Encounter [facility] [address] [place] [phone] Eleanor Phelps MD [address], [address] [address] [facility] Start: 01-27-2024 End: 01-27-2024 Patient encounter procedure 01/27/2024 11:40 AM EDT Office Visit [facility] [address] [place] [address] Eleanor Phelps MD [address], [address] [address] [facility] Start: 08-24-2023 Screening for malignant neoplasm of colon [facility] Start: 10-13-2022 [facility] Start: 2015 Administration of varicella zoster vaccine Zoster (Shingles) Vaccine (1 of 2) [facility] Start: 2015 Shingles vaccine (1 of 2) Shingles vaccine (1 of 2) [facility] Start: 2015 Zoster Vaccines (1 of 2) Zoster Vaccines (1 of 2) [facility] Start: 08-20-2012 GFR test (Diabetes, CKD 3-4, OR last GFR 15-59) GFR test (Diabetes, CKD 3-4, OR last GFR 15-59) [facility] Start: 2010 Screening for malignant neoplasm of colon [facility] Start: 2005 Screening for malignant neoplasm of breast Mammogram [facility] Start: 1987 DTaP/Tdap/Td Vaccines (1 - Tdap) DTaP/Tdap/Td Vaccines (1 - Tdap) [facility] Start: 1986 Screening for malignant neoplasm of cervix [facility] Start: 01-09-1984 DTaP,Tdap and Td Vaccines (1 - Tdap) DTaP,Tdap and Td Vaccines (1 - Tdap) [facility] Start: 01-09-1984 DTaP/Tdap/Td vaccine (1 - Tdap) DTaP/Tdap/Td vaccine (1 - Tdap) [facility] Start: 01-09-1984 Hepatitis B vaccine (1 of 3 - 19+ 3-dose series) Hepatitis B vaccine (1 of 3 - 19+ 3-dose series) [facility] Start: 01-09-1984 Hepatitis B Vaccines (1 of 3 - 19+ 3-dose series) Hepatitis B Vaccines (1 of 3 - 19+ 3-dose series) [facility] Start: 01-09-1984 Pneumococcal 50+ years Vaccine (1 of 2 - PCV) Pneumococcal 50+ years Vaccine (1 of 2 - PCV) [facility] Start: 01-09-1984 Pneumococcal vaccination Pneumococcal Vaccine (1 of 2 - PCV) [facility] Start: 1983 Adult BMI Screening Adult BMI Screening [facility] Start: 1983 Glaucoma screening Diabetic retinal exam [facility] [place] [facility] Start: 1983 Hepatitis C screening [facility] Start: 1983 Urine screening for protein Diabetic Alb to Cr ratio (uACR) test [facility] Start: 01-09-1980 HIV screening HIV screen [facility] Start: 1977 Depression Screening Depression Screening [facility] Start: 1977 Tobacco Screening Tobacco Screening [facility] Start: 1975 Glaucoma screening Diabetes: Retinopathy Screening [facility] Start: 1975 Lipid panel Lipids [facility] Start: 1971 Pneumococcal 0-64 years Vaccine (1 of 2 - PCV) Pneumococcal 0-64 years Vaccine (1 of 2 - PCV) [facility] Start: 1966 Hepatitis B Surface Antibody Hepatitis B Surface Antibody [facility] Start: 1966 MMR Vaccines (1 of 1 - Standard series) MMR Vaccines (1 of 1 - Standard series) [facility] Start: 1965 Annual wellness visit Welcome to Medicare Visit [facility] Start: 1965 Cyanocobalamin vitamin b-12 Vitamin B-12 [facility] Start: 1965 Diabetes: Celiac Disease Screening Diabetes: Celiac Disease Screening [facility] Start: 1965 Hemoglobin A1c measurement Diabetes: Hemoglobin A1C [facility] Start: 1965 HIV screening HIV Screening [facility] Start: 1965 Lipid panel Lipid Panel [facility] Start: 1965 Screening for malignant neoplasm of colon [facility] Start: 1965 Screening for osteoporosis Bone Density Scan [facility] Start: 1965 TB Test TB Test [facility] Start: 1965 Thyroid stimulating hormone measurement TSH Level [facility] Start: 1965 Tobacco Counseling Tobacco Counseling [facility] Start: 1965 Urine screening for protein Diabetes: Urine Protein Screening [facility] Start: 1965 Vitamin D25-[place] Vitamin D25-[place] [facility] Comprehensive metabo lic 1999 panel - Serum or Plasma [facility] Comprehensive metabo lic 1999 panel - Serum or Plasma [facility] End: 01-24-2025 Creatinine includes GFR, serum Creatinine includes GFR, serum Lab Routine PAD (peripheral artery disease) ([facility] 1 Occurrences starting 01/25/2024 until 01/24/2025 [facility] Work Phone: Comment on above: 1 Occurrences starting 01/25/2024 until 01/24/2025 MR Unspecified body region [facility] End: 10-09-2024 Pathology study [facility] Comment on above: 1 Occurrences starting 10/09/2024 until 10/09/2024 Once for 1 Occurrenc es starting 10/09/2024 until 10/09/2024 Pathology study Surgical Patholo gy Lab STAT 10/09/2024 12:00 AM EDT [facility] Patient Education [facility] Work Phone: Patient referral [facility] Work Phone: [facility] Immunizations Immunization Date Immunization Notes Care Provider Hazel hansen NEGATED: Highlighted row has not occurred!09-02-2021 influenza virus vaccine, unspecified formulation Renate DIALLO [facility] NEGATED: Highlighted row has not occurred!09-05-2020 influenza virus vaccine, unspecified formulation Renate DIALLO [facility] [place] Payers Date Payer Category Payer Unknown [id number] 2024 Medicare [id number] 2024 Self-pay [id number] 2024 Unknown [id number] 2023 Unknown [employer] P [place] DEVOTED [employer] MEDICARE ADVANTAGE [id number] 2023-Present [phone] [address] [place] [id number] 2020 Medicare [employer]ED [employer] P [place] MEDICARE [employer]OTED [employer] MEDICARE ADVANTAGE [id number] 2020-Present [phone] [address] [place] [id number] 2020 Medicare (Managed Care) 1.2. [id number] 2020 Medicare O DEVOTED [facility] [id number] 2020 Unknown [id number] 1965 Unknown [id number] .16.840.1.083998.3.579.2. 593 1965 Unknown [id number] 2.16.840.1.834797.3.579.2. 727 1965 Unknown [id number] 2.16.840.1.074949.3.579.2. 727 1965 Unknown [id number] 2.16.840.1.022216.3.579.2. 72 1965 Unknown [id number] 2.16.840.1.588319.3.579.2. 72 1965 Unknown [id number] 2.16.840.1.237030.3.579.2. 72 1965 Unknown [id number] 2.16.840.1.800372.3.579.2. 72 1965 Unknown [id number] 2.16.840.1.035071.3.579.2. 72 1965 Unknown [id number] 2.16.840.1.117131.3.579.2. 1965 Unknown [id number] 2.16.840.1.960170.3.579.2. 72 1965 Unknown [id number] 2.16.840.1.949256.3.579.2. 72 1965 Unknown [id number] 2.16.840.1.120696.3.579.2. 72 1965 Unknown [id number] 2.16.840.1.819627.3.579.2. 1965 Unknown [id number] 2.16.840.1.168916.3.579.2. 182 1965 Unknown [id number] 2.16.840.1.348322.3.579.2. 182 1965 Unknown [id number] 2.16.840.1.508698.3.579.2. 182 1965 Unknown [id number] 2.16.840.1.309172.3.579.2. 182 1965 Unknown [id number] 2.16.840.1.590406.3.579.2. 1259 1965 Unknown [id number] 2.16.840.1.194544.3.579.2. 1259 1965 Unknown [id number] 2.16.840.1.214877.3.579.2. 1259 1965 Unknown [id number] 2.16.840.1.143200.3.579.2. 1244 1965 Unknown [id number] 2.16.840.1.238996.3.579.2. 1244 Medicare Self Pay [id number] Unknown [id number] Unknown Regular Auto/Liability [id number] Unknown MMO [id number] Unknown [id number] 2.16.840.1.033468.3.579.2. 531 Unknown [id number] 2.16.840.1.148095.3.579.2. 531 Unknown [id number] 2.16.840.1.558992.3.579.2. 531 Unknown [id number] 2.16.840.1.502143.3.579.2. 531 Unknown [id number] 2.16.840.1.586796.3.579.2. 531 Social History Date Type Detail Facility Tobacco smoking stat [facility] Unknown if ever smoked [facility] Start: 1965 Sex Assigned At Female [facility] Start: 04-04-2024 End: 11-01-2024 Sex Assigned At [facility] Other Start: 05-12-2022 End: 05-25-2023 Tobacco smoking status Heavy tobacco smoker (finding) [facility] Tobacco smoking status Never [facility] Start: 10-13-2022 End: 12-08-2024 Tobacco smoking status NHIS Smoker (finding) [facility] [place] Start: 03-28-2024 End: 03-15-2025 Tobacco smoking status NHIS Smokes tobacco daily [employer] [facility] Start: 08-02-1993 History of tobacco use [facility] Start: 03-28-2024 End: 11-01-2024 Cigarettes smoked current (pack per day) - Reported 1 [facility] Work Phone: Start: 03-28-2024 End: 10-30-2024 Tobacco use and exposure Smokeless tobacco [facility] Start: 06-27-2024 End: 11-23-2024 Alcoholic beverage intake Current drinker of alcohol (finding) [facility] How often to you hav e a drink containing alcohol? 4 or more times a week [facility] [facility] Work Phone: How many standard drinks containing alcohol do you have on a typical day? 1 or 2 [facility] How often do you hav e 6 or more drinks on 1 occasion? Never [facility] (I/We) worried santiago er (my/our) food would run out before (I/we) got money to buy more. Never true [facility] At any time in the past 12 months, were you homeless or living in prison [including now]? No [facility] Start: 1965 Sex assigned at Not on file [employer] Tobacco smoking stat [facility] Tobacco smoking consumption unknown [facility] of tobacco use [facility] Start: 02-14-2024 Tobacco Comment HAS CUT BACK, SMOKED FOR 45 YEARS AVERAGE [address] [facility] Start: 02-14-2024 Alcohol Comment 2-[address] [facility] Start: 03-05-2015 End: 12-10-2024 Sex Female (finding) [facility] Start: 10-16-2024 End: 11-23-2024 Exposure to SARS-CoV-2 (event) Not sure [facility] Start: 10-30-2024 End: 11-01-2024 Alcoholic beverage intake Ex-drinker (finding) [facility] Medical Equipment Procedure Code Equipment Code Equipment Origin al Text Equipment Identifier Dates Thoracotomy Extra-gynaecolog ical surgical mesh, synthetic polymer, bioabsorbable [id number] [facility] Start: 12-08-2024 One Touch Delica Plus Lancets 33G, See Instructions, 500 EA, 5, Use as directed. Testing blood sugars 5+ times daily. DX: E11.69, [id number], Supply, 158, cm, 05/12/22 15:40:00 EDT, Height/Length Dosing, 59.8, kg, 05/12/22 15:40:00 EDT, Weight... Start: 05-12-2022 One Touch Delica Plus Test Strips, See Instructions, 500 EA, 5, Use as directed. Testing blood sugars 5+ times daily. DX: E11.69, [id number], Supply, 158, cm, 05/12/22 15:40:00 EDT, Height/Length Dosing, 59.8, kg, 05/12/22 15:40:00 EDT, Weight... Start: 05-12-2022 USE TO TEST BLOO D SUGAR 5 TIMES DAILY DX E11. Start: 05-12-2022 One Touch Delica Plus Lancets 33G, See Instructions, 500 EA, 5, Use as directed. Testing blood sugars 5+ times daily. DX: E11.69, [id number], Supply, 158, cm, 05/12/22 15:40:00 EDT, [...] dx E11.69, [id number], Supply, 158, cm, 10/11/22 15:40:00 EDT, Height/Length Dosing, 59.8, kg, 05/12/22 [...] 16sq Mm 8fr 29mm Bln Expandable Gw [facility] Vbx - [id number] - [id number] Start: 02-22-2024 Comment on above: Description: AORTIC STENT Test once daily & as needed for symptoms of irregular blood glucose. Dispense sufficient amount for indicated testing frequency plus additional to accommodate PRN testing needs. ONE TOUCH ULTRA [id number] Start: 09-26-2024 Goals Date Patient Goal Desired Activity /State Functional Status Date Assessment Result Facility 12-10-2024 Functional status Patient is Pro gressing Toward Baseline [facility] Work Phone: 03-21-2024 Functional Status N/A [facility] 03-21-2024 Functional Status [facility] 12-31-2022 Functional Status N/A [facility] 05-12-2022 Functional Status N/A [facility] Mental Status Date Assessment Result Facility 12-10-2024 Cognitive function Cognitive Sta tus Patient at Baseline [facility] Work Phone: Clinical Notes 10-29-2021 to 03-28-2025 Note Date & Type Note Facility 03-28-2025 Progress note [facility] enter 03-15-2025 Progress note [facility] enter 01-15-2025 Evaluation note Diagnosis Onset Date Resolution Colitis acute January 15 2:06pm Mass of left lung acute January 152024 2:06pm Non-small cell lung cancer acute March 15 8:51am Non-small cell lung cancer acute March 15 9:38am [facility] Work Phone: 1(371) 600-840406-16-2025 Evaluation note* Diagnosis Onset Date Resolution Status Admit Date Colitis acute January 15 2:06pm Mass of left lung acute January 152024 2:06pm Non-small cell lung cancer acute March 15, 2025 8:51am Non-small cell lung cancer acute March 15, 2025 9:38am Non-small cell lung cancer acute March 28, 2025 1:30pm [facility] Work Phone: 1(487) 584-508406-16-2025 Evaluation note* Diagnosis Onset Date Resolution Status Admit Date Colitis acute January 15 2:06pm Mass of left lung acute January 152024 2:06pm Non-small cell lung cancer acute March 15, 2025 8:51am Non-small cell lung cancer acute March 15, 2025 9:38am Non-small cell lung cancer acute March 28, 2025 1:30pm Non-small cell lung cancer acute March 28, 2025 2:03pm [facility] Work Phone: 1(602) 346-243305-11-2025 Progress note Author Shanika Hyman [facility] Note Date/Time December 10, 2024 2:43p m [facility] [address] [place] [address] Pulmonology Progress Note Signed Patient: Cari Hale MR#: [id number] : 1965 Acct:[id number] Age/Sex: 59 / F Adm Date: 5 Loc: 4 Room: [address] [place] [address] Type: ADM IN Attending Dr: Mac Turner [...] discharge. Documented By: Shanika Hyman MD 12/10/24 6771 Signed By: <Electronically signed by Shanika Hyman MD> 12/10/24 1443 [facility] Work Phone: 1([phone]) 795-203805-11-2025 Progress note Author Hugh Reji [facility] Note Date/Time December 10, 2024 1:09p m [facility] [address] [place], [place] [id number] Hospitalist Progress Note Signed Patient: Cari Hale MR#: [id number] : 1965 Acct:[id number] Age/Sex: 59 / F Adm Date: 5 Loc: 4 Room: [address] [place] [address] Type: ADM IN Attending Dr: Mac Turner [...] 12/09/24 09:00 12/10/24 09:26 Aspirin 81 Mg Tablet. PO 12/09/25 08:59 81 mg DAILY BECK [...] code Documented By: Hugh Mendoza MD 12/10/24 446 Signed By: <Electronically signed by Hugh Mendoza MD> 12/10/24 8645 [facility] Work Phone: 1(297) 317-881305-11-2025 [place] [address] Pulmonology Progress Note Signed Patient: Cari Hale MR#: [id number] : 1965 Acct:[id number] Age/Sex: 59 / F Adm Date: 5 Loc: 4N Room: 9H0444-6 Type: ADM IN Attending Dr: Mac Turner [...] MD 12/10/24 1439 Signed By: 12/10/24 1443 [facility] [place]05-11-2025 [place] [address] Hospitalist Progress Note Signed Patient: Cari Hale MR#: [id number] : 1965 Acct:[id number] Age/Sex: 59 / F Adm Date: 5 Loc: Room: [address] [place] [address] Type: ADM IN Attending Dr: Mac Turner [...] MD 12/10/24 1308 Signed By: 12/10/24 1309 [facility]05-10-2025 Progress note Author Hugh Mendoza [facility] Note Date/Time December 09, 2024 4:37p m [facility] [address] [place] [address] Hospitalist Progress Note Signed Patient: Cari Hale MR#: [id number] : 1965 Acct:[id number] Age/Sex: 59 / F Adm Date: 5 Loc: 4N Room: 5V6794-9 Type: ADM IN Attending Dr: Mac Turner [...] of care and confirmed it with the resident/student/[employer]. Patient seen resting in bed today. States [...] clamp chest tube and anticipate removal tomorrow. -COPPER PLATER pump was ordered. -Constipation prophylaxis Chronic conditions: Aortic coarctation stent Anxiety, claustrophobia, panic attacks. Depression. Migraines Dyslipidemia Ulcerative colitis Diabetes Partial thyroidectomy DVT prophylaxis: Heparin Regular diet Full code Documented By: Hugh Mendoza MD 12/09/24 1335 Signed By: <Electronically signed by Hugh Mendoza MD> 12/09/24 1637 <Electronically signed by DO MOLLY Enriquez> 12/09/24 1343 [facility] Work Phone: 1([phone]) 129-875705-10-2025 [place] [address] Hospitalist Progress Note Signed Patient: Cari Hale MR#: [id number] : 1965 Acct:[id number] Age/Sex: 59 / F Adm Date: 5 Loc: 4N Room: 1U1580-7 Type: ADM IN Attending Dr: Mac Turner [...] care and confirmed it with the re sident/student/[employer]. Patient seen resting in bed today. States [...] clamp chest tube and anticipate removal tomorrow. -COPPER PLATER pump was ordered. -Constipation prophylaxis Chronic conditions: Aortic coarctation stent Anxiety, claustrophobia, panic attacks. Depression. Migraines Dyslipidemia Ulcerative colitis Diabetes Partial thyroidectomy DVT prophylaxis: Heparin Regular diet Full code Documented By: Hugh Mendoza MD 12/09/24 1335 Signed By: 12/09/24 1637 12/09/24 1349 [facility] [place]05-10-2025 Progress note Author Shanika Hyman [facility] Note Date/Time December 09, 2024 1:03p m [facility] [address] [place] [address] Pulmonology Progress Note Signed Patient: Cari Hale MR#: [id number] : 1965 Acct:[id number] Age/Sex: 59 / F Adm Date: 5 Loc: 4N Room: [address] [place] [address] Type: ADM IN Attending Dr: Mac Turner [...] <Electronically signed by Shanika Hyman MD> 12/09/24 1303 [facility] Work Phone: 1(333) 207-287005-10-2025 [place] [address] Pulmonology Progress Note Signed Patient: Cari Hale MR#: [id number] : 1965 Acct:[id number] Age/Sex: 59 / F Adm Date: 5 Loc: Room: [address] [place] [address] Type: ADM IN Attending Dr: Mac Turner [...] MD 12/09/24 1300 Signed By: 12/09/24 1303 [facility] [place]05-10-2025 Progress note Author Mac Turner [facility] Note Date/Time December 09, 2024 7:57a m [facility] [address] [place] [address] Cardiothoracic Progress Note Signed Patient: Cari Hale MR#: [id number] : 1965 Acct:[id number] Age/Sex: 59 / F Adm Date: 5 Loc: 4N Room: 6T0349-3 Type: ADM IN Attending Dr: Mac Turner [...] remove chest tube and discharge Documented By: aMc Turner MD 12/09/24755 Signed By: <Electronically signed by Mac Turner MD> 12/09/24 075 [facility] Work Phone: 1(750) 892-811805-10-2025 [place] [address] Cardiothoracic Progress Note Signed Patient: Cari Hale MR#: [id number] : 1965 Acct:[id number] Age/Sex: 59 / F Adm Date: 5 Loc: 4N Room: 3T0184-8 Type: ADM IN Attending Dr: Mac Turner [...] MD 12/09/24 0756 Signed By: 12/09/24 0757 [facility] [place]05-09-2025 Consult note Author Hugh Mendoza [facility] Note Date/Time December 08, 2024 4:41pm [facility] [address] [place] [address] Hospitalist Consult Note Signed Patient: Cari Hale MR#: [id number] : 1965 Acct:[id number] Age/Sex: 59 / F Adm Date: 5 Loc: Room: [address] [place] [address] Type: ADM IN Attending Dr: Mac Turner [...] no cough or shortness of breath. A COPPER PLATER pump was ordered but not yet implemented [...] medicine. The chest tube is in place. COPPER PLATER pump was ordered. DVT prophylaxis. Constipation prophylaxis Other chronic medical comorbidities are stable. Home medications were reviewed,updated and ordered. There is no other acute medical illness. Will follow the patient daily and as needed. Aortic coarctation stent Anxiety, claustrophobia, panic attacks. Depression. Migraines Dyslipidemia Ulcerative colitis Diabetes Partial thyroidectomy [facility] Medical History (Updated 12/08/24 @ 16:24 [...] mg 12/09/24 09:00 Aspirin 81 [address] Table[address]Dr ALDRIDGE 12/09/25 08:59 DAILY BECK Budesonide 9 mg [...] 20 Mg Tablet PO 12/08/25 20:59 BID [facility] Heparin Sodium (Porcine) 5,000 unit 12/08/24 21:00 Heparin 5,000 Unit/Ml Vial SUBCUT 12/08/25 20:59 Q12HR [facility] Hydroxyzine Pamoate 25 mg 12/08/24 10:35 Hydroxyzine [...] 100 Mg Tablet PO 12/09/25 08:59 QAM [facility] Levothyroxine Sodium 50 mcg 12/09/24 06:30 Levothyroxine 50 Mcg Tablet PO 12/09/25 06:29 DAILY@0630 BECK Magnesium Hydroxide 30 ml 12/08/24 10:43 Magnesium [...] U-100 Insulin Aspart] SUBCUT 12/09/25 08:59 DAILY BECK Rosuvastatin 5 Mg 5 mg 12/09/24 09:00 Tablet PO 12/09/25 08:59 QAM [facility] Ondansetron HCl 4 mg 12/08/24 10:43 Ondansetron [...] <Electronically signed by Hugh Mendoza MD> 12/08/24 1641 [facility] Work Phone: [phone]) [phone] Consult note Author Shanika Hyman [facility] Note Date/Time December 08, 2024 4:26pm [facility] [address] [place] [address] Pulmonology Consult Note Signed Patient: Cari Hale MR#: [id number] : 1965 Acct:[id number] Age/Sex: 59 / F Adm Date: 5 Loc: Room: [address] [place] [address] Type: ADM IN Attending Dr: Mac Turner MD Copies to: MD Renate Fregoso, DO Mac Turner MD~ HPI Date/Time of Consultation: Date of [...] significant pain and is asking for her COPPER PLATER pump. She denies shortness of breath, cough or sputum production. She has been a lifelong smoker of about a pack per day. Review of Systems Review of Systems All other systems reviewed & are negative unless noted below or in HPI [facility] Medical History (Updated 12/08/24 @ 16:24 [...] nondistended. Extremities: No edema. 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 COPPER PLATER pump was ordered and awaiting initiation for pain control. Encourage incentive spirometry use. I will add bronchodilator therapy given the significant prior smoking history and diminished breath sounds on exam suggesting possible underlying COPD. Discussed with the patient and family bedside. Documented By: Shanika Hyman MD 12/08/241621 Signed By: <Electronically signed by Shanika Hyman MD> 12/08/241625 [facility] Work Phone: 1([phone]) 398-716505-09-2025 [place] [address] Hospitalist Consult Note Signed Patient: Cari Hale MR#: [id number] : 1965 Acct:[id number] Age/Sex: 59 / F Adm Date: 5 Loc: 4N Room: 9L3329-0 Type: ADM IN Attending Dr: Mac Turner [...] no cough or shortness of breath. A COPPER PLATER pump was ordered but not yet implemented [...] medicine. The chest tube is in place. COPPER PLATER pump was ordered. DVT prophylaxis. Constipation prophylaxis Other chronic medical comorbidities are stable. Home medications were reviewed,updated and ordered.There is no other acute medical illness. Will follow the patient daily and as needed. Aortic coarctation stent Anxiety, claustrophobia, panic attacks. Depression. Migraines Dyslipidemia Ulcerative colitis Diabetes Partial thyroidectomy [facility] Medical History (Updated 12/08/24 @ 16:24 [...] 20 Mg Tablet PO 12/08/25 20:59 BID BECK Heparin Sodium (Porcine) 5,000 unit 12/08/24 21:00 [...] Dextrose-0.9 % Nacl IV 12/08/25 10:59 .Q20H [facility] Ketorolac Tromethamine 15 mg 12/08/24 10:43 Ketorolac Tromethamine 15 Mg/Ml Vial IV-PUSH 12/13/24 10:42 Q6H PRN Pain Lamotrigine 100 mg 12/09/24 09:00 Lamotrigine 100 Mg Tablet PO 12/09/25 08:59 QAM [facility] Levothyroxine Sodium 50 mcg 12/09/24 06:30 Levothyroxine 50 Mcg Tablet PO 12/09/25 06:29 DAILY@0630 [facility] Magnesium Hydroxide 30 ml 12/08/24 10:43 Magnesium [...] U-100 Insulin Aspart] SUBCUT 12/09/25 08:59 DAILY [facility] Rosuvastatin 5 Mg 5 mg 12/09/24 09:00 Tablet PO 12/09/25 08:59 QAM [facility] Ondansetron HCl 4 mg 12/08/24 10:43 Ondansetron [...] Hugh Mendoza MD 12/08/24 1437 Signed By: 12/08/24 1641 [facility] [place]05-09-2025 [place] [address] Pulmonology Consult Note Signed Patient: Cari Hale MR#: [id number] : 1965 Acct:[id number] Age/Sex: 59 / F Adm Date: 5 Loc: Room: [address] [place] [address] Type: ADM IN Attending Dr: Mac Turner [...] significant pain and is asking for her COPPER PLATER pump. She denies shortness of breath, cough or sputum production. She has been a lifelong smoker of about a pack per day. Review of Systems Review of Systems All other systems reviewed & are negative unless noted below or in HPI [facility] Medical History (Updated 12/08/24 @ 16:24 [...] nondistended. Extremities: No edema. 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 COPPER PLATER pump was ordered and awaiting initiation for pain control. Encourage incentive spirometry use. I will add bronchodilator therapy given the significant prior smoking history and diminished breathsounds on exam suggesting possible underlying COPD. Discussed with the patient and family bedside. Documented By: Shanika Hyman MD 12/08/24 1622 Signed By: 12/08/24 1626 [facility] [place]05-09-2025 Evaluation note* Diagnosis Onset Date Resolution Status Admit Date Lung mass acute December 08, 2024 7:01am [facility] Work Phone: 1([phone]) 354-750504-24-2025 History of Present illness Narrative* Katarzyna Castro MD - 11/23/2024 2:45 PM EDT CARDIOLOGY OFFICE NOTE Date: 11/23/2024 Patient: Cari Hale Date of : 1965 Primary Physician: Renate Diallo DO REASON FOR VISIT / CHIEF COMPLAINT: Preoperative cardiac clearance follow-up. HPI: Cari Hale was seen in cardiac evaluation at the [facility] Cardiology office November 23, 2024. The patients [...] continue her current medications. Refills were provided [employer] portal use was encouraged. We will plan [...] LIST: Problem List[1] Katarzyna Castro MD, [facility] / Cardiology Of Note: [employer] voice recognition dictation software was utilized partially in the preparation of this note,therefore, inaccuracies in spelling, word choice and punctuation may have occurred which were not recognized at the time of signing. Patient was seen and examined with total time of visit including chart preparation, rooming, and chart completion exceeding 40 minutes. IIda RN am scribing for, and in the presence of Dr. Katarzyna Castro MD, [facility]. I, Dr. Katarzyna Castro MD, [facility], personally performed the services described in [...] Type 1 diabetes (Multi) documented in this [facility] Work Phone: 1(836) 669-659304-24-2025 Instructions* Patient Instructions* Angelica Contreras LPN - [...] time of your visit. documented in this [facility] Work Phone: 1([phone]) 540-355704-19-2025 Nuclear medicine Diagnostic study note [facility] Main [place] [address] [place] [address] Nuclear Medicine Report Signed Patient: Cari Hale MR#: [id number] : 1965 Acct:[id number] Age/Sex: 59 / F ADM Date: 5 Loc: MD Room: Type: [facility] Attending Dr: Katarzyna Castro MD Copies to: MD Katarzyna Crockett~ Ordering Provider: Katarzyna Castro Date of Service: 11/17/24 NM/MD german perf SPECT rest & str: Z01.818 [...] 11/17/24 193 Dictated By: Roseanne Nguyen MD 11/17/241830 Signed By: 11/18/24 0640 [facility] Work Phone: 1(327) 232-130104-17-2025 [facility]iology [facility] Main [place] [address] [place] [address] Ultrasound Report Signed Patient: Cari Hale MR#: [id number] : 1965 Acct:[id number] Age/Sex: 59 / F ADM Date: 5 Loc: [place] Room: Type: [facility] Attending Dr: Renate Diallo DO Ordering Provider: Renate Diallo DO Date of Service: 11/16/24 MM/MM special view LT w/CAD: R92.8 ([id number]) US/US breast LT complete: R92.8 Copies to: [...] Maria Ramirez M.D.11/16/2024 10:45 AM Dictation Location: [facility] Tech: Treva Morton; Heike Porter Transcribed By: BLANCA 11/16/24 1045 Dictated By: Jose Maria Ramirez DO 11/16/24 1033 Signed By: 11/16/24 1045 [facility] [place]04-10-2025 Evaluation + Plan note* Assessment & Plan Note - Eleanor Phelps MD - 11/09/2024 12:02 PM EDTAssociated Problem(s): Cigarette smoker motivated to quit Counseled on smoking cessation for at least 3 minutes. She is willing to quit. [facility] [employer] [id number] Miscellaneous Notes* Assessment & Plan Note - [...] note were not included. To: FLORA ESCALERA, MERCHANDISE CARRIER-HOT STRIP MILL INSPECTOR HPI: Cari Hale is a 59 [...] Aortic stenosis Chronic ulcerative colitis with complication ([facility]) 2019 Coronary artery disease Dental disease PARTIALS 1 UPPER AND LOWER HAS 1 Depression FHx: tremor Hypercholesteremia Hypothyroidism LEFT REMOVED Open wound of great toe SINCE 12/2023 HAD INGROWN TOENAIL REMOVED AND HAS HAD WOUND SINCE Panic disorder Rash Thin skin Type 1 diabetes ([facility]) Past Surgical History: Past Surgical History: Procedure Laterality Date ANGIOGRAM EXTREMITY LOWER WITH IVUS Left 02/22/2024 Performed by Eleanor Phelps MD at [facility] PROC AORTOGRAM WITH RUNOFF (AORTIC STENT WITH SHOCKWAVE INTRAVASCULAR LITHOTRIPSY) N/A 02/22/2024 Performed by Eleanor Phelps MD at [facility] PROC AVULSION TOENAIL PLATE 12/2023 INGROWN TOENAIL LEFT GREAT TOE BACK SURGERY CARDIAC CATHETERIZATION COLONOSCOPY X4-5 LEFT sfa DRUG BALLOON ANGIOPLASTY Left 02/22/2024 Performed by Eleanor Phelps MD at [facility] PROC THYROID SURGERY Vascular Invasive bilat lower extremity angiogram Left 01/21/2024 Performed by Eleanor Phelps MD at [facility] CARDIAC CATH LABS Social and Family [...] Resource Strain: Low Risk (03/28/2024) Received from [facility] Overall Financial Resource Strain (CARDIA) Difficulty of Paying Living Expenses: Not hard at all Food Insecurity: No Food Insecurity (11/03/2024) Received from [facility] Hunger Vital Sign Worried About Running Out of Food in the Last Year: Never true Ran Out of Food in the Last Year: Never true Transportation Needs: No Transportation Needs (11/03/2024) Received from [facility] PRAPARE - Transportation Lack of Transportation (Medical): No Lack of Transportation (Non-Medical): No Physical Activity: Inactive (11/03/2024) Received from [facility] Exercise Vital Sign Days of Exercise per Week: 0 days Minutes of Exercise per Session: 0 min Stress: Not on file Social Connections: Not on file Interpersonal Safety: Not on file Housing Instability: Low Risk (11/03/2024) Received from [employer] [facility] Housing Stability Vital Sign Unable to Pay [...] stenosis to go over testing completed in [facility]. Diagnoses and all orders for this visit: [...] Kick The Habit? Free Tobacco Cessation Resources [facility] Tobacco Treatment Center Services [facility] Tobacco Treatment Centers provide all employees with free tobacco cessation services that include: Counseling to understand nicotine addiction Education about medications that can help you successfully quit Assistance with developing a plan to quit Call to set up an individual appointment or find out when group classes will be held: [facility]: [phone] [facility]: [phone] [facility]: [phone] [facility]: [phone] Quit Smoking Action Plan and Resources [facility] offers an eight-week, online smoking cessation plan to all [facility] employees, regardless of whether [place] is your medical insurance provider. Go to [email or web address] and click the Health Risk Assessment and Resources link to get started. In the [employer] menu, click Action Plans instead of Health Risk Assessment to access the Quit Smoking Action Plan. Additional smoking cessation resources are also available to all [facility] employees on the [employer] web page at [email or web address]. [place] Tobacco Cessation Program If [place] is your medical insurance provider, there are more free resources available to you, including: No copays or deductibles on local tobacco cessation counseling services to help you quit Prescription assistance for tobacco cessation medications to help you quit For details about the tobacco cessation program available to [place] members, go to www.Chenal Media.Cookapp (Search: Tobacco Cessation Program). [place] Tobacco Quit Line 7-623-OWTY-NOW ( ) is a toll-free, telephonic service that helps [place] residents quit smoking and using tobacco. It is staffed by experts who tailor a quit plan for you and provide you with advice. [place] Tobacco Quit Line 9-962-MGVZ-NOW ( ) is a toll-free, telephonic service that helps [place] residents quit smoking and using tobacco. It is staffed by experts who tailor a quit plan for you and provide you with advice. Two weeks of nicotine replacement therapy may be provided at no charge, if needed. Additional Resources These national organizations also offer free information and resources to help you quit tobacco: [place] [employer] Society--www.cancer.org/healthy/stayawayfromtobacco [place] Heart Association--www.heart.org (Search: Quit Smoking) Centers for Disease Control and Prevention--www.cdc.gov/tobacco [place] Lung Association--www.lungusa.org documented in this [facility]St [facility] History of Present illness Narrative* Lissa Malone, - 11/01/2024 1:45 PM EDT Subjective Patient [...] her at that point. documented in this encounterResearch Psychiatric [id number] History of Present illness Narrative* Lissa Malone [...] back later this week. documented in this encounterResearch Psychiatric CenterZmslibdoby40-08-1048 NoteSinus rhythm, biatrial enlargement, poor wave anterior progression. Rate 80.TKOSU36-08-3612 History of Present illness Narrative* Katarzyna Castro [...] at this time. Exercise dietary program. Hydration. [employer] portal use was encouraged. We will plan to see back following the above testing with Laboratory Studies and ECG as noted. Patient will follow up with their primary physician for general care. The patient knows to contact medical care earlier if need be. HPI: Cari Terrie Hale was seen in cardiac evaluation at the [facility] office October 26, 2024. The patients [...] Smokes 1 pack of cigarettes per day. 92-tyan-tjoh smoking history. Occasional wine use. No illicit [...] DATA: None this visit Katarzyna Castro MD, FACC [facility] / Cardiology Of Note: ValetAnywhere voice recognition dictation software was utilized partially in the preparation of this note,therefore, inaccuracies in spelling, word choice and punctuation may have occurred which were not recognized at the time of signing. Patient was seen and examined with total time of visit including chart preparation, rooming, and chart completion exceeding 40 minutes. IIda RN am scribing for, and in the presence of Dr. Katarzyna Castro MD, FACC. I, Dr. Katarzyna Castro MD, [facility], personally performed the services described in the documentation as scribed by Ida Pelaez RN in my presence, and confirm it is both accurate and complete. documented in this [facility] Work Phone: 1(384) 996-796603-27-2025 Instructions* Patient Instructions* Monet Ledezma CMA - [...] done in office today documented in this [facility] Work Phone: 1(840) 180-267003-10-2025 History of Present illness Narrative* Alexandra Mars [...] it's not thatbad and rates pain a 5/10. 1147 Pt's VSS. Pt states having some [...] since before midnight. documented in this encounterBon [facility] Hospital Discharge instructions* Discharge Instructions* Divine Pineda [...] of infection occur contact DR. DAVE at [phone]. * Attachments The following attachments cannot be sent through Care Everywhere. * Lung Biopsy: Percutaneous: Post-op (Lao) * Sedation (Lao) documented in this encounterBon [facility]03-06[facility] Miscellaneous Notes* Telephone Encounter - Edwige Harkins - 10/05/2024 2:08 PM EST Patient called asking about testing , Asaf) talked to patient about testing completed at [place] and scheduled a follow up to go over the results. [facility] Telephone encounter Note* Telephone Encounter - Edwige Harkins - 10/05/2024 2:08 PM EST Patient called asking about testing , IEmerita) talked to patient about testing completed at [place] and scheduled a follow up to go [...] agreement with current d/c plan. Services Consulted Supervisor Shearing Consult - Completed -- 03/21/24 20:27:31 EDT [...] 50,000 intl units (1.25 mg) oral capsule, 45009 International_Unit, Oral, qWeek, 3 refills Home aspirin 81 m (more content not included)...[facility] HospitalComment on above:Result Comment: Electronically Signed By: ARUNA WILSON, Ghada\.br\Date and Time Signed: 03/26/24 20:38 EDT\.br\Electronically Co- Signed By: Lee Martinez DO.br\Date and Time Co-Signed:03/31/24 07:00 [id number] NoteEchocardiology Procedure Exam Date/Time Accession # Ordering Dr. Miller w/ Saline Bubbles 03/22/2024 09:41 EDT [id number] ARUNA NIEVESLOLYRereGhada CPT code 13693 54816 Reason for Exam (Echo w/ Saline Bubbles) CVA Report [facility] [address] [place] [address] Adult Echocardiogram Report Name: CARI HALE Study Date: 03/22/2024 08:34 AM BP: 117/77 mmHg Patient Location: [address] [place] [address] HR: 90 : 1965 Gender: Female Height: [...] Signed by: Oren Mir MD Transcribed by: [facility] Technologist: [facility]08-21-2024 Hospital Discharge instructions Patient Education 03/22/2024 16:19:36 [...] for Disease Control and Prevention: cdc.gov National [place] on Alcohol Abuse and Alcoholism: niaaa.nih.gov Alcoholics [...] the National Suicide Prevention Lifeline at or 008. This is open 24 hours a day. Text the Crisis Text Line at 221677. Summary Alcohol misuse and dependence can have [...] provider. Document Revised: 09/23/2022 Document Reviewed: 09/23/2022 Now In Store Patient Education 2022 Apps Genius. 03/22/2024 16:19:36 High Cholesterol High Cholesterol High [...] ask your health careprovider. General instructions Take nnto-tjb-mecttbg and prescription medicines only as told by your health care provider. Keep all follow-up visits. This is important. Where to find more information [place] Heart Association: www.heart.org National Heart, Lung, and Blood [place]: www.nhlbi.nih.gov Contact a health care provider if: [...] provider. Document Revised: 10/02/2021 Document Reviewed: 09/22/2021 Now In Store Patient Education 2022 Now In Store Inc. 03/22/2024 16:19:36 Type 2 Diabetes Mellitus, Diagnosis, [...] be managed by a specialist called an drill press set up operator. Type 2 diabetes may be treated by [...] meet with a certified diabetes care and director of medical education? What diabetes medicines do I need, and when should I take them? What equipment will I need to manage my diabetes at home? How often do I need to check my blood glucose? Where can I find a support group for people with diabetes? What number can I call if I have questions? When is my next appointment? General instructions Take qbsb-ahm-rqezbqp and prescription medicines only as told by your health care provider. Keep all follow-up visits. This is important. Where to find more information For help and guidance and for more information about diabetes, please visit: [place] Diabetes Association (ADA): www.diabetes.org [place] Association of Diabetes Care and Education Specialists [...] provider. Document Revised: 10/13/2021 Document Reviewed: 10/13/2021 Now In Store Patient Education 2022 Apps Genius. 03/22/2024 16:19:36 Hypertension, Adult, Nhcy-oy-Wfzo Hypertension, Adult Hypertension is another name for [...] doctor. Keep all follow-up visits. Medicines Take ilyp-sey-xguyxeu and prescription medicines only as told by [...] provider. Document Revised: 05/07/2022 Document Reviewed: 05/07/2022 Now In Store Patient Education 2022 Now In Store Inc. 03/22/2024 16:19:36 Smoking Tobacco Information, Adult Smoking [...] quit. Calling the smokefree.gov counselor helpline at 5-278-NRHPNOW ( ). Where to find more information You may find more information about quitting smoking from: Centers for Disease Control and Prevention: cdc.gov/tobacco Smokefree.gov: smokefree.gov [place] Lung Association: freedomfromsmoking.org Contact a health care [...] provider. Document Revised: 07/14/2022 Document Reviewed: 07/14/2022 Now In Store Patient Education 2022 Apps Genius. 03/22/2024 16:19:36 Core Measures Transient Ischemic Attack (TIA) [facility] (Custom) Transient Ischemic Attack You have had [...] factors for stroke, work with your health patient care manager to control them. Risk Factors: High Blood [...] Please call [facility] Smoking Cessation Program at [phone] ([facility]), or [phone], ext. [phone] Diabetes: Work with your healthcare professional to [...] cholesterol diet, you can call our [facility] citrus picker at [phone] ext [phone]. The goal for total cholesterol [...] your risk of stroke with your health patient care manager. If this is your first ischemic attack, [...] for more information on strokes, log onto www.[facility].com or www.strokeassociation.org or call the [place] Heart Association at [phone]. Revised 08/201803/22/2024 16:19:36 Core Measures: Stroke (Cerebrovascular Accident) [facility], (Custom) Stroke (Cerebrovascular Accident) A stroke is [...] factors for stroke, work with your health patient care manager to control them. High Blood Pressure: High [...] Please call [facility] Smoking Cessation Program at [phone] ([facility]), or [phone], ext. [phone] Diabetes: Work with your healthcare professional to [...] cholesterol diet, you can call our [facility] citrus picker at [phone] Ext. [phone]. The goal for total cholesterol is less [...] your risk of stroke with your health patient care manager. TREATMENT TIME IS OF THE ESSENCE! Medications [...] Measures will be takento prevent short and senior care complications, including aspiration pneumonia, blood clots in [...] for more information on strokes, log onto www.[facility].com or www.strokeassociation.org or call the [place] Heart Association at . Revised 08/2018 Follow Up Care 03/21/2024 13:41:56 With:Bruno HANKS, SONIA Pichardo Address: [place] [address] [employer] [address] [id number]- When:2 to 4 weeks [facility] [id number] NoteGetWell Learning Participants [facility] Understands Education Yes GetWell Education Video Getting Help When You Leave the [facility]08-21-2024 NoteGetWell Understands Education Yes GetWell Education Video After a Hospital Stay: Managing Appointments [facility] Learning Participants [facility]08-21-2024 NoteGetWell Understands Education Yes GetWell Education Video Avoiding Infections in the Hospital [facility] Learning Participants [facility]08-21-2024 NotePatient Education - Text Transient Ischemic Attack [...] factors for stroke, work with your health patient care manager to control them. Risk Factors: High Blood [...] smoke: QUIT! We can help. Please call [facility] Smoking Cessation Program at [phone] ([facility]), or [phone], ext. [phone] Diabetes: Work with your healthcare professional to [...] cholesterol diet, you can call our [facility] citrus picker at [phone] Ext [phone]. The goal for total cholesterol is less [...] your risk of stroke with your health patient care manager. If this is your first ischemic attack, [...] to follow-up with yo (more content not included)...[facility]08-21-20[facility] NoteProgress Note-Physician Assessment/Plan PLAN: 1. TIA (transient [...] Pt reports recent ileac stent placement at [facility] by ? symptoms since that time. ASA/Plavix. I did call and speak to who is requesting CTA of the neck. 6. CAD (I25.10: Atherosclerotic heart disease of [place] coronary artery without angina pectoris) ASA, Plavix 7. Emphysema/COPD (J43.9: Emphysema, unspecified) Med nebs, budesonide 8. Mood disorder (F39: Unspecified mood [affective] disorder) W/anxiety and depression Bupropion, Lamictal 9. Alcohol abuse (F10.10: Alcohol abuse, uncomplicated) Pt significant other reports that pt drinks 2 bottles of wine a night. Pt confirms. [facility] protocol Monitor for s/sx of withdrawl. 10. History of thyroidectomy (E89.0: Postprocedural hypothyroidism) levothyroxine 11. Smoker (F17.210: Nicotine dependence, cigarettes, uncomplicated) Welt Insole Channeler on cessation Nicotine patch DVT Prophylaxis: Heparin [...] 13:45:00) Lymph Auto: 22.4 % (03/21/24 13:45:00) [place] Auto: 10.6 % (03/21/24 13:45:00) Eos Auto: 2.5 % (03/21/24 13:45:00) Basophil Auto: 0.8 % (03/21/24 13:45:00) Neutro Absolute: 6.1 E9/L (03/21/24 13:45:00) Lymph Absolute: 2.1 E9/L (03/21/24 13:45:00) [place] Absolute: 1 E9/L (03/21/24 13:45:00) Eos Absolute: [...] 13:45:00) CO2: 24 mmol/ (more content not included)...[facility] HospitalComment on above:Result Comment: Electronically Signed By: Ghada CRUZ\.br\Date and Time Signed: 03/22/24 13:32 EDT\.br\Electronically Co- Signed By: Lee Martinez DO\.br\Date and Time Co-Signed:03/22/24 14:36 [id number] Evaluation + Plan noteExtracted from: Title:APSO Note [...] Pt reports recent ileac stent placement at [facility] by ? symptoms since that time. ASA/Plavix. I did call and speak to who is requesting CTA of the neck. 6. CAD (I25.10: Atherosclerotic heart disease of [place] coronary artery without angina pectoris) ASA, Plavix 7. Emphysema/COPD (J43.9: Emphysema, unspecified) Med nebs, budesonide 8. Mood disorder (F39: Unspecified mood [affective] disorder) W/anxiety and depression Bupropion, Lamictal 9. Alcohol abuse (F10.10: Alcohol abuse, uncomplicated) Pt significant other reports that pt drinks 2 bottles of wine a night. Pt confirms. [facility] protocol Monitor for s/sx of withdrawl. 10. History of thyroidectomy (E89.0: Postprocedural hypothyroidism) levothyroxine 11. Smoker (F17.210: Nicotine dependence, cigarettes, uncomplicated) Welt Insole Channeler on cessation Nicotine patch DVT Prophylaxis: Heparin [...] 6. CAD (I25.10: Atherosclerotic heart disease of [place] coronary artery without angina pectoris) 7. Emphysema/COPD [...] Ordered: Initial Hospital Care/Day High 75 Minutes 39654 2. Type 2 diabetes mellitus with diabetic neuropathy (E11.40: Type 2 diabetes mellitus with diabetic neuropathy, unspecified) AccuChecks AC/HS Pt to use insulin pump. Ordered: Initial Hospital Care/Day High 75 Minutes 93877 3. HTN (I10: Essential (primary) hypertension) Allow permissive HTN tonight Propranolol Ordered: Initial Hospital Care/Day High 75 Minutes 77310 4. Hyperlipidemia (E78.5: Hyperlipidemia, unspecified) Statin Lipid panel pending. Ordered: Initial Hospital Care/Day High 75 Minutes 36097 5. PAD (peripheral artery disease) (I73.9: Peripheral vascular disease, unspecified) Pt reports recent stent placement by ? symptoms since that time. ASA/Plavix. 6. CAD (I25.10: Atherosclerotic heart disease of [place] coronary artery without angina pectoris) ASA, Plavix Ordered: Initial Hospital Care/Day High 75 Minutes 45795 7. Emphysema/COPD (J43.9: Emphysema, unspecified) Med nebs, budesonide 8. Mood disorder (F39: Unspecified mood [affective] disorder) W/anxiety and depression Bupropion, Lamictal 9. Alcohol abuse (F10.10: Alcohol abuse, uncomplicated) Pt significant other reports that pt drinks 2 bottles of wine a night. Pt confirms. [facility] protocol Monitor for s/sx of withdrawl. 10. History of thyroidectomy (E89.0: Postprocedural hypothyroidism) levothyroxine 11. Smoker (F17.210: Nicotine dependence, cigarettes, uncomplicated) Welt Insole Channeler on cessation Nicotine patch DVT Prophylaxis: Heparin [...] Intermittent Pneumatic Compression Device Cardiac Monitoring Clinical [place] Withdrawal Assessment Clinical [place] Withdrawal Assessment Clinical [place] Withdrawal Assessment Clinical [place] Withdrawal Assessment Communication Order Physician to Nursing [...] w/CAD if perf and 3D Jace 05/25/23 [facility] 08-21-2024 NoteConsultation Note Chief Complaint weakness, [...] and managed to use a phone voice media center assistant to call her . He inadvertently [...] and other notes but I did not pick pulling machine operator on any of that. Review of Systems [...] both correctly = 0 Open and close eyes/supermarket manager release hand: Obeys both correctly = [...] 6. CAD (I25.10: Atherosclerotic heart disease of [place] coronary artery without angina pectoris) 7. Emphysema/COPD [...] related to lifes (more content not included)...[facility] HospitalComment on above:Result Comment: Electronically Signed By: Jumana Min RN\.br\Date and Time Signed: 03/22/24 07:40 EDT\.br\Electronically Co-Signed By: Joseph Woody DO\.br\Date and Time Co- Signed: 03/22/24 10:56 EDT\.br\Electronically Co-Signed By: Mechelle WHITE Jumana [id number] NoteConsultation Note Chief Complaint weakness, stroke symptoms, since resolved Reason for Consultation TIA/CVA History of Present Illness 9-year-old woman. Drinks 2 bottles of wine daily. Had an episode yesterday in the early afternoon where she woke up in bed and felt like she could not move. She got very upset and anxious and was crying and managed to use a phone voice media center assistant to call her . He inadvertently [...] and other notes but I did not pick pulling machine operator on any of that. Review of Systems [...] both correctly = 0 Open and close eyes/supermarket manager release hand: Obeys both correctly = [...] 6. CAD (I25.10: Atherosclerotic heart disease of [place] coronary artery without angina pectoris) 7. Emphysema/COPD [...] related to lifes (more content not included)...[facility] HospitalComment on above:Result Comment: Electronically Signed By: Jumana Min RN\.br\Date and Time Signed: 03/22/24 07:40 EDT\.br\Electronically Co-Signed By: Joseph Woody DO\.br\Date and Time Co- Signed: 03/22/24 10:56 [id number] NoteHistory and Physical Chief Complaint c/o weakness [...] to blood sugar of 64. On arrival [facility] pt's blood sugar had improved to [...] 13:45:00) Lymph Auto: 22.4 % (03/21/24 13:45:00) [place] Auto: 10.6 % (03/21/24 13:45:00) Eos Auto: 2.5 % (03/21/24 13:45:00) Basophil Auto: 0.8 % (03/21/24 13:45:00) Neutro Absolute: 6.1 E9/L (03/21/24 13:45:00) Lymph Absolute: 2.1 E9/L (03/21/24 13:45:00) [place] Absolute: 1 E9/L (03/21/24 13:45:00) Eos Absolute: [...] mg/dL High (03/21/24 16:13:00) POC Device SN: [id number] (03/21/24 16:13:00) POC User ID: [id number] (03/21/24 16:13:00) POC Username: POC Username (03/21/24 16:13:00) UA Spec Desc: Clean Catch (03/21/24 16:27:00) UA Color: Light-Yellow (03/21/24 16:27:00) UA Clarity: Clear (03/21/24 16:27:00) UA Spec Grav: 1.020 (03/21/24 16:27:00) UA pH: 5.5 (03/21/24 16:27:00) UA Protein: Negat (03/21/24 16:27:00) UA Glucose: 4+ Abnorm (more content not included)...[facility] Comment on above:Result Comment: Electronically Signed By: Ghada CRUZ\.br\Date and Time Signed: 03/21/24 20:04 EDT\.br\Electronically Co- Signed By: Ghada CRUZ\.br\Date and Time Co-Signed: 03/21/24 20:05 EDT\.br\Electronically Co-Signed By: Lee Martinez DO.edu\Date and Time Co-Signed: 03/22/24 09:33 [id number] Evaluation + Plan note* Assessment & Plan [...] note were not included. To: FLORA ESCALERA, MERCHANDISE CARRIER-HOT STRIP MILL INSPECTOR HPI: Cari Hale is a 59 [...] Aortic stenosis Chronic ulcerative colitis with complication ([facility]) 2020 Coronary artery disease Dental disease PARTIALS 1 UPPER AND LOWER HAS 1 Depression FHx: tremor Hypercholesteremia Hypothyroidism LEFT REMOVED Open wound of great toe SINCE 12/2023 HAD INGROWN TOENAIL REMOVED AND HAS HAD WOUND SINCE Panic disorder Rash Thin skin Type 1 diabetes ([facility]) Past Surgical History: Past Surgical History: Procedure Laterality Date ANGIOGRAM EXTREMITY LOWER WITH IVUS Left 02/22/2024 Performed by Eleanor Phelps MD at [facility] PROC AORTOGRAM WITH RUNOFF (AORTIC STENT WITH SHOCKWAVE INTRAVASCULAR LITHOTRIPSY) N/A 02/22/2024 Performed by Eleanor Phelps MD at [facility] PROC AVULSION TOENAIL PLATE 12/2023 INGROWN TOENAIL LEFT GREAT TOE BACK SURGERY CARDIAC CATHETERIZATION COLONOSCOPY X4-5 LEFT sfa DRUG BALLOON ANGIOPLASTY Left 02/22/2024 Performed by Eleanor Phelps MD at [facility] PROC THYROID SURGERY Vascular Invasive bilat lower extremity angiogram Left 01/21/2024 Performed by Eleanor Phelps MD at [facility] C[facility]IAC CATH LABS Social and Family [...] ischemia of left lower extremity with gangrene ([facility]) - Primary Current Assessment & Plan Her [...] ischemia of left lower extremity with gangrene ([facility]) Cigarette smoker motivated to quit Eleanor Phelps MD, SOLOMON, RPVI, FSVS, FACS [facility] This note was [...] Kick The Habit? Free Tobacco Cessation Resources [facility] Tobacco Treatment Center Services [facility] Tobacco Treatment Centers provide all employees with free tobacco cessation services that include: Counseling to understand nicotine addiction Education about medications that can help you successfully quit Assistance with developing a plan to quit Call to set up an individual appointment or find out when group classes will be held: [facility]: [phone] [facility]: [phone] [facility]: [phone] [facility]: [phone] Quit Smoking Action Plan and Resources [facility] offers an eight-week, online smoking cessation plan to all [facility] employees, regardless of whether [place] is your medical insurance provider. Go to [email or web address] and click the Health Risk Assessment and Resources link to get started. In the Vmcge9Sffhaq menu, click Action Plans instead of Health Risk Assessment to access the Quit Smoking Action Plan. Additional smoking cessation resources are also available to all [facility] employees on the Hvbon4Dpvkaz web page at [email or web address]. [place] Tobacco Cessation Program If [place] is your medical insurance provider, there are more free resources available to you, including: No copays or deductibles on local tobacco cessation counseling services to help you quit Prescription assistance for tobacco cessation medications to help you quit For details about the tobacco cessation program available to [place] members, go to www.Clay.io (Search: Tobacco Cessation Program). [place] Tobacco Quit Line 5-346-ZSAC-NOW ( ) is a toll-free, telephonic service that helps [place] residents quit smoking and using tobacco. It is staffed by experts who tailor a quit plan for you and provide you with advice. [place] Tobacco Quit Line 3-796-KMJT-NOW ( ) is a toll-free, telephonic service that helps [place] residents quit smoking and using tobacco. It is staffed by experts who tailor a quit plan for you and provide you with advice. Two weeks of nicotine replacement therapy may be provided at no charge, if needed. Additional Resources These national organizations also offer free information and resources to help you quit tobacco: [place] [employer]--www.cancer.org/healthy/stayawayfromtobacco [place] Heart Association--www.heart.org (Search: Quit Smoking) Centers for Disease Control and Prevention--www.cdc.gov/tobacco [place] Lung Association--www.lungusa.org documented in this encounterBellevue HospitalMuxlim [id number] Miscellaneous Notes* Telephone Encounter - Sharda Lobo CMA - 02/23/2024 4:04 PM EDT Cari called stating there was to be 3 meds ordered after surgery she is needing the meds ordered specifically the antibiotics and sent to [facility] [place] [facility] Tele[facility] encounter Note* Telephone Encounter - Sharda Lobo CMA - 02/23/2024 4:04 PM EDT Cari called stating there was to be 3 meds ordered after surgery she is needing the meds ordered specifically the antibiotics and sent to [facility] [place] [facility]07-15-[facility] Instructions* Pre-Procedure Instructions - Luz Maria Willis RN - 02/14/2024 12:45 PM EDT Your surgery/procedure is scheduled at [facility] on 02/22/24 at 1:30PM Arrival Time 11:30AM [facility] Address: [address] [place] [address] Park in P1 Parking lot located on [facility]. Report to the Entrance B. Check in at the information desk the surgery. The waiting room located on the second floor. If you have any questions prior to surgery, please call Pre-Admission Clinic at [phone] between 7:30 am and 4:30 pm Wednesday through Wednesday. If you have questions the morning of surgery, please call the Pre-op Department at [phone]. Notify your SURGEON if you develop any [...] would like to schedule therapy at a [facility] facility, please call [phone] ([phone]). Do not use lotions, creams, powders, perfume, [...] RIGHTS AND RESPONSIBILITIES As a patient at [facility], you have the right to: Receive medical care and be informed of who is taking care of you Be treated with dignity and respect Have a family member/direct marketing representative of choice and your physician notified of your admission Receive information and actively participate in decisions about your care and treatment Refuse care, treatment and services Decide who may provide your support and speak for you Access jain and spiritual services Participate in ethical issues [...] of hospital charges and payment methods Patient/patient direct marketing representative responsibilities are to: Provide information about [...] and report for surgery in clean clothes. [facility]07-15-2024 Miscellaneous Notes* Perioperative Nursing Note - Luz Maria Willis RN - 02/14/2024 12:45 PM EDT PATIENT DIRECTED CALL DR PHELPS OFFICE FOR MEDICATION INSTRUCTIONS FOR DAY OF SURGERY. * Pre-Procedure Instructions - Luz Maria Willis RN - 02/14/2024 12:45 PM EDT Your surgery/procedure is scheduled at [facility] on 02/22/24 at 1:30PM Arrival Time 11:30AM [facility] Address: [address] [place] [address] Park in P1 Parking lot located on [facility]. Report to the Entrance B. Check in at the information desk the surgery. The waiting room located on the second floor. If you have any questions prior to surgery, please call Pre-Admission Clinic at [phone] between 7:30 am and 4:30 pm Wednesday through Wednesday. If you have questions the morning of surgery, please call the Pre-op Department at [phone]. Notify your SURGEON if you develop any [...] would like to schedule therapy at a [facility] facility, please call [phone] ([phone]). Do not use lotions, creams, powders, perfume, [...] RIGHTS AND RESPONSIBILITIES As a patient at [facility], you have the right to: Receive medical care and be informed of who is taking care of you Be treated with dignity and respect Have a family member/direct marketing representative of choice and your physician notified of your admission Receive information and actively participate in decisions about your care and treatment Refuse care, treatment and services Decide who may provide your support and speak for you Access jain and spiritual services Participate in ethical issues [...] of hospital charges and payment methods Patient/patient direct marketing representative responsibilities are to: Provide information about [...] FHx: tremor Hypercholesteremia Hypothyroidism Type 1 diabetes ([facility]) Past Surgical History: Past Surgical History: Procedure Laterality Date BACK SURGERY CARDIAC CATHETERIZATION THYROID SURGERY Vascular Invasive bilat lower extremity angiogram Left 01/21/2024 Performed by Eleanor Phelps MD at [facility] CARDIAC CATH LABS Social and Family [...] ischemia of left lower extremity with gangrene ([facility]) - Primary Current Assessment & Plan Left [...] ischemia of left lower extremity with gangrene ([facility]) Cigarette smoker motivated to quit Aortic valve stenosis, etiology of cardiac valve disease unspecified Eleanor Phelps MD, SOLOMON, RPVI, FSVS, FACS [facility] This note was created with the assistance of a speech recognition program. While intending to generate a timely document that accurately reflects the content of the visit, no guarantee can be provided that every grammatical or spelling mistake has been or will be identified or corrected. Thank you for your understanding. documented in this [facility]06-24-2024 Miscellaneous Notes* Telephone Encounter - [...] sent into the pharmacy. [facility] [address] [phone]. Wellbutrin, Plavix and nicotine patch. * Telephone Encounter - Ximena France LPN - 01/13/2024 11:53 AM EDT Medications have been re ordered documented in this [facility]06-13-2024 Telephone encounter Note* Telephone Encounter - Tre Bullock - 01/13/2024 11:53 AM EDT Pt calling stating the 3 Rx's prescribed today were not sent into the pharmacy. [facility] [address] [phone]. Wellbutrin, Plavix and nicotine patch. [...] ischemia of left lower extremity with gangrene ([facility]) Current Assessment & Plan Will prescribe aspirin Plavix and statin. Left lower extremity angiogram and intervention as soon as possible Cari was seen today for peripheral vascular disease and leg pain. 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 While intending to generate a timely document that accurately reflects the content of the visit, no guarantee can be provided that every grammatical or spelling mistake has been or will be identified or corrected. Thank you for your understanding. documented in this encounterBellevue HospitalMuxlim [id number] Evaluation note* Encounter Date Diagnosis Assessment Notes Treatment Notes Treatment Clinical Notes Jul, Functional diarrhea (ICD-10 - K59.1) [employer] Other 06-15-2023 Evaluation note* Encounter Date Diagnosis Assessment Notes Treatment Notes Treatment Clinical Notes Dec, Lower abdominal pain (ICD-10 - R10.30) [employer] Other 06-01-2023 Hospital Discharge instructions Patient Education [...] glass of hard liquor (44 mL). Lifestyle [place] your teeth every morning and night with [...] provider. Document Revised: 01/14/2022 Document Reviewed: 01/14/2022 Now In Store Patient Education 2022 Apps [employer]ius. 12/31/2022 16:32:26 Preventing Diabetes Mellitus Complications Preventing [...] lead to tooth loss. To prevent this: [place] your teeth twice a day. Floss at [...] health professional. Where to find more information [place] [employer] Association: www.diabetes.org Association of Diabetes Care [...] provider. Document Revised: 09/06/2020 Document Reviewed: 09/06/2020 Now In Store Patient Education 2022 Apps [employer]. 12/31/2022 16:32:25 Managing Your Hypertension Managing Your [...] more information National Heart, Lung, and Blood [place]: www.nhlbi.nih.gov [place] Heart Association: www.heart.org Contact a health care [...] provider. Document Revised: 04/02/2022 Document Reviewed: 04/02/2022 Now In Store Patient Education 2022 Apps [employer]. 12/31/2022 16:32:21 Major Depressive Disorder, Adult Major [...] things, which may include: Your personality traits. [place] or conditioned behaviors or thoughts or feelings [...] your health care provider. General instructions Take vjxl-wrz-mnifpxd and prescription medicines only as told by your health care provider. Eat a healthy diet and get plenty of sleep. Consider joining a support group. Your health care provider may be able to recommend one. Keep all follow-up visits as told by your health care provider. This is important. Where to find more information National [place] on Mental Illness: www.diana.org [place]. National [place] of Mental Health: www.nimh.nih.gov Contact a health [...] the National Suicide Prevention Lifeline at or 932 in the U.S. This is open 24 hours a day in the [place]. Text the Crisis Text Line at 083993 (in the [place] Summary Major depressive disorder [...] provider. Document Revised: 02/11/2022 Document Reviewed: 06/29/2020 Now In Store Patient Education 2022 Apps [employer]. 12/31/2022 16:32:20 Hypertension, Adult Hypertension, Adult High [...] follow-up visits. This is important. Medicines Take grgt-swd-hpkgjqa and prescription medicines only as told by [...] provider. Document Revised: 05/26/2022 Document Reviewed: 05/26/2022 Now In Store Patient Education 2022 Apps [employer]. 12/31/2022 16:32:19 Heart Disease Prevention Heart Disease [...] of hard liquor (44 mL). Medicines Take iwhz-fsl-rqumctr and prescription medicines only as told by [...] Centers for Disease Control and Prevention: www.cdc.gov/heartdisease [place] Heart Association: www.heart.org Summary Heart disease is [...] provider. Document Revised: 03/18/2022 Document Reviewed: 03/18/2022 Now In Store Patient Education 2022 Apps [employer]. 12/31/2022 16:32:17 Diabetes Mellitus and Nutrition, Adult [...] Carrots. Green beans. Tomatoes. Peppers. Onions. Cucumbers. [place] sprouts. Grains Whole grains, such as whole-wheat [...] meet with a certified diabetes care and director of medical education? Do I need to meet with a dietitian? What number can I call if I have questions? When are the best times to check my blood glucose? Where to find more information: [place] Diabetes Association: diabetes.org Academy of Nutrition and Dietetics: eatright.org National [place] of Diabetes and Digestive and Kidney Diseases: [...] provider. Document Revised: 02/19/2021 Document Reviewed: 02/19/2021 Now In Store Patient Education 2022 Now In Store Inc. 12/31/2022 16:32:16 Diabetes Mellitus and Foot Care Diabetes Mellitus and Foot Care Foot care is an important part of your health, especially when you have diabetes. Diabetes may cause you to have problems because of poor blood flow (circulation) to your feet and legs, which can cause your skin to: Become thinner and drier and pulverizer tender. Break more easily. Heal more slowly. [...] provider immediately. Where to find more information [place] Diabetes Association: www.diabetes.org Association of Diabetes Care [...] provider. Document Revised: 02/06/2021 Document Reviewed: 02/06/2021 Now In Store Patient Education 2022 Apps [employer]. 12/31/2022 16:32:15 Diabetes Mellitus and Exercise Diabetes [...] activity plan? Your health care provider or licensed and certified midwife can help you make a plan for [...] (heat stroke). Where to find more information [place] Diabetes Association: www.diabetes.org Summary Exercising regularly is important for overall health, especially for people who have diabetes mellitus. Exercising has many health benefits. It increases muscle strength and bone density and reduces bodyfat and stress. It also lowers and controls blood glucose. Your health care provider or licensed and certified midwife can help you make an activity plan [...] provider. Document Revised: 04/15/2020 Document Reviewed: 04/15/2020 Now In Store Patient Education 2022 Apps [employer]. 12/31/2022 16:32:13 DASH Eating Plan DASH Eating [...] Dairy Whole or 2% milk, cream, and wiiv-xmd-ibvq. Whole or full-fat cream cheese. Whole-fat or [...] more information National Heart, Lung, and Blood [place]: www.nhlbi.nih.gov [place] Heart Association: www.heart.org Academy of Nutrition and [...] provider. Document Revised: 06/21/2020 Document Reviewed: 06/21/2020 Now In Store Patient Education 2022 Apps [employer]. [facility] 03-14-2023 [facility]* Encounter Date Diagnosis Assessment Notes Treatment Notes Treatment Clinical Notes Oct, Fecal incontinence (ICD-10 - R15.9) [employer] Other 03-30-2022 Evaluation note* Encounter Date Diagnosis [...] WAS ON PREDNISONE PROCEED WITH FLEX SIG [employer] [place] [address] Discharge Summary Signed Patient: Cari Hale MR#: [id number] : 1965 Acct:[id number] Age/Sex: 59 / F Adm Date: 5 Loc: Room: [address] [place] [address]: Mac Turner MD Copies to: [...] Mac Turner MD 12/14/24 1053 Signed By: 12/14/24 1056 [facility] Author Mac Turner [facility] Note Date/Time December 14, 2024 10:56 am [facility] [address] [place] [address] Discharge Summary Signed Patient: Cari Hale MR#: [id number] : 1965 Acct:[id number] Age/Sex: 59 / F Adm Date: 5 Loc: Room: [address] [place] [address]: Mac Turner MD Copies to: [...] signed by Mac Turner MD> 12/14/24 1056 [facility] Work Phone: Evaluation + Plan note Future Appointments Appointment Date:05/27/2022 01:00:00 PM Scheduled Provider: Location:[facility] Appointment Type: Medicare Wellness Subsequent Appointment Date:06/11/2022 03:40:00 PM Scheduled Provider:Renate DIALLO DO Location:[facility] Appointment Type: Open Future Scheduled Tests Laboratory* HgbA1c 05/12/22 * Lab Miscellaneous-LC 05/26/21 * Microalbumin Level Urine 05/12/22 * CBC w/ Auto Diff 05/12/22 * Comprehensive Metabolic Panel 05/12/22 * Estradiol Level 05/12/22 * Lipid Panel 05/12/22 * Progesterone Level 05/12/22 * Thyroid Stimulating Hormone 05/12/22 Radiology* MA Mamm Screen w/CAD if perf and 3D Jace 05/26/21 [facility] Evaluation + Plan note Future Appointments Appointment Date:06/11/2022 03:40:00 PM Scheduled Provider:Renate DIALLO DO Location:[facility] Appointment Type: Open Diagnostic Tests Pending * Estradiol Level [facility]/03/22 [facility] Future Appointments Appointment Date:01/03/2024 02:00:00 PM Scheduled Provider: Location:[facility] Appointment Type:FM Medicare Wellness Subsequent Future Scheduled Tests Radiology* MA Mamm Screen w/CAD if perf and 3D Jace 12/31/22 [facility] Evaluation + Plan note Future Appointments Appointment Date:01/03/2024 02:00:00 PM Scheduled Provider: Location:[facility] Appointment Type:FM Medicare Wellness Subsequent Future Scheduled Tests Laboratory* CBC w/ Auto Diff 01/04/23 * Comprehensive Metabolic Panel 01/04/23 Radiology* MA Mamm Screen w/CAD if perf and 3D Jace 12/31/22 [facility] noteNo InformationNort [employer] Other Evaluation noteNo assessment information available [facility] Work Phone: Evaluation note* Diagnosis Mass of left lung Abnormal CT scan, chest Nonspecific (abnormal) findings on radiological and other examination of other intrathoracic organs [facility] Diagnosis Cigarette smoker motivated to quit- Primary PVD (peripheral vascular disease) ([facility]) Unspecified peripheral vascular disease 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 ([facility]) [facility] Diagnosis PAD (peripheral artery disease) ([facility])- Primary Unspecified peripheral vascular disease documented in this encounter [facility]* Diagnosis 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 ([facility])- Primary Cigarette smoker motivated to quit Aortic valve stenosis, etiology of cardiac valve disease unspecified documented in this encounter [facility]* Diagnosis PVD (peripheral vascular disease) ([facility])- Primary Unspecified peripheral vascular disease 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 ([facility]) documented in this encounter [facility]* Diagnosis 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 ([facility])- Primary Cigarette smoker motivated to quit Stenosis of aorta documented in this encounter [facility]* Diagnosis Cigarette smoker motivated to quit- Primary PVD (peripheral vascular disease) ([facility]) Unspecified peripheral vascular disease 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 ([facility]) 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 ([facility])- Primary Cigarette smoker motivated to quit Aortic valve stenosis, etiology of cardiac valve disease unspecified 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 ([facility])- Primary Cigarette smoker motivated to quit Stenosis of aorta Stenosis of aorta- Primary 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 ([facility]) Cigarette smoker motivated to quit documented in this encounter [facility]* Diagnosis Mass of left lung [facility]* Diagnosis Mass of left lung documented in this encounter [facility] note* Diagnosis Pre-operative clearance- Primary Unspecified pre-operative examination Cardiomyopathy, ischemic Other specified forms of chronic ischemic heart disease Mixed hyperlipidemia Coronary artery disease involving [place] coronary artery of [place] heart, unspecified whether angina present Mitral valve [...] Tobacco use disorder documented in this encounter [facility] Work Phone: Evaluation note* Diagnosis Neck mass Swelling, mass, or lump in head and neck documented in this encounter [facility]* Diagnosis Neck mass- Primary Swelling, mass, or lump in head and neck documented in this encounter [facility]* Diagnosis Cigarette smoker motivated to [...] motivated to quit documented in this encounter [facility]* Diagnosis Cigarette smoker motivated to [...] peripheral vascular disease documented in this encounter [facility]* Diagnosis Pre-operative clearance Unspecified pre-operative examination Cardiomyopathy, ischemic Other specified forms of chronic ischemic heart disease Type 1 diabetes mellitus without complication Type I (juvenile type) diabetes mellitus without mention of complication, not stated as uncontrolled Hx of myocardial infarction Dyspnea on exertion Other dyspnea and respiratory abnormality Mixed hyperlipidemia Coronary artery disease involving [place] coronary artery of [place] heart, unspecified whether angina present Mitral valve insufficiency, unspecified etiology Abnormal echocardiogram Nonspecific (abnormal) findings on radiological and other examination of other intrathoracic organs Snoring Other dyspnea and respiratory abnormality Depression, unspecified depression type Anxiety Anxiety state, unspecified Tobacco abuse Tobacco use disorder BMI 24.0-24.9, adult Hypothyroidism, unspecified type documented in this encounter [facility] Work Phone: History and physical note Author Geovanny Schaffer [facility] October 13, 2022 2:16pm Note Date/Time October 13, 2022 2:1 6pm [facility] [address] [place] [address] Gastroenterology H&P Signed Patient: Cari Hale MR#: [id number] : 1965 Acct:[id number] Age/Sex: 57 / F Adm Date: 3 Loc: Room: Type: [facility] Attending Dr: Geovanny Schaffer MD Copies to: MD Renate Smith DO~ Date of Service: 10/13/2022 HISTORY & [...] MD Documented By: Geovanny Schaffer MD 10/13/22 141 Signed By: <Electronically signed by Geovanny Schaffer MD> 10/13/22 1411 [facility] Work Phone: Hospital course Narrative No data available for this section [facility] Hospital Discharge instructions No data available for this section [facility] Hospital Discharge instructions Additional Instructions [...] problems. -Follow up with PCP. -Office number [phone].[facility] Work Phone: Hospital Discharge instructions Additional Instructions May resume [facility] Work Phone: Hospital Discharge instructionsAmbulatory Orders* Oncology Histology Time Frame: 1 Day, Location: Determined By Patient [facility] Work Phone: InstructionsNot on filedocumented in this [...] note No data available for this section [facility] Medicine [place] Progress note Author Genie Bass [facility] Note Date/Time March 15, 2025 10 :10am [facility] [place] [address] Cancer Center Note Signed with Earlenda Patient: Cari Hale MR#: [id number] : 1965 Acct:[id number] Age/Sex: 60 / F Type: REG AMB Date of Service: 03/15/25 Copies to: DO Mac Marie MD~ ADDENDUM1 12/08/24 Surgical path from [facility] came back as follow: TUMOR [...] that she had PET CT scan in [place] before the surgery which we do not have the report of. No other scans ofthe body or since July 2024 and no brain images were done as well. She stated that she had a CT of the neck back on 11/01/2024 which revealed right maxillary sinusitis no mass or lymphadenopathy noted in the neck. Plan: We need to obtain surgical path from [facility] pathology for staging. We also need to repeat the PET CT scan for restaging at this point since it has been more than 90 days since her surgery. Will need to obtain the PET CT scan results from [place] or [place] from prior to surgery. Also will do [...] the scans. She had PET CT at [place] or [place] per patient prior to surgery but the [...] Turner for lung cancer. Had surgery 12/08/2024. [facility] Medical History Medical History (Updated 03/14/25 [...] signed by Genie Bass MD> 03/15/25 0952 [facility] Work Phone: Progress note Author Genie Bass [facility] Note Date/Time March 28, 2025 3: 04pm [facility] at [place] [id number] Cancer Center Note Signed Patient: Cari Hale MR#: [id number] : 1965 Acct:[id number] Age/Sex: 60 / F Type: REG AMB Date of Service: 03/28/25 Copies to: Renate Bianca Diallo, DO~ Assessment & Plan A/P (1) Non-small cell lung cancer: Plan Please see the HPI for details. I informed the patient that at this point she is beyond 90 days after surgery for the recommended adjuvant chemo and radiation for her not completely staged left upper lung adenocarcinoma. Patient stated that she had PET CT scan in [place] before the surgery which we do not have the report of. No other scans ofthe body or since July 2024 and no brain images were done as well. She stated that she had a CT of the neck back on 11/01/2024 which revealed right maxillary sinusitis no mass or lymphadenopathy noted in the neck. 03/28/25: She is here with her for finalizing plan of care after obtaining the results of the surgical path and also having PET CT scan and brain MRI. -Surgical path on 8 12/14/2024 revealed invasive poorly differentiated adenocarcinoma of the left upper lobe wedge resection with metastatic carcinoma in 1 intrapulmonary lymph node. Also there is metastatic carcinoma and lymph node tissue and level 7. Level 5 lymph node showed atypical cells rarely but noother pathology found. - PET CT scan on 03/28/2025 done at [facility] revealed: There is a 5 mm FDG avid lymph node within the left level 2A with a maximum SUV of 4.9 unchanged. There is a similar 5 mm intraparotid lymph node posteriorly on the right with a maximum SUV of 2.7. This is unchanged. Post surgical changes are noted consistent with prior wedge resection. Calcifications are noted extending towards the left infrahilar region with increased FDG accumulation along the deep margin and a maximum SUV of 2.8. Residual tumor is not excluded. However, this is most likely postsurgical. There is increased radiotracer accumulation along the anterior and lateral aspect of the left sixth rib with abnormal radiotracer accumulation and a maximum SUV of 2.5 suspicious for bony metastatic disease. This is new when compared to the prior exam. MRI of the brain done on 03/26/2025 revealed no evidence of intra cranial metastatic disease. Showed remote lacunar infarcts noted in the left cerebellarhemisphere. It showed encephalomalacia and gliosis along the gyrus rectus at the base of the frontal lobes bilaterally consistent with remote injury. 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 EGFR and NTK are not done. TREATMENT PLAN: Rad Onc discussed her case at [facility] Tumor Board and the decision is to checkSignatara circulating DNA to measure MRD and if it is elevated then to consider XRT. if not just to continue chemoimmunotherapy as stage IV possible assuming the left 6th rib is metastatic. Carbo AUC 5, Alimta and Keytruda for 4 cycles to be followed by [facility] for minimum of 24 months (30 cycles) while monitoring her scan. Likely PET after C4 chemo. Plan: Send blood for Signatara circulating DNA testing to measure MRD and if it is high or positive then consider adjuvant radiation to the left lung/rib. Since her PET revealed left 6th ribs is suspicious for metastatic disease, then will need chemoimmunotherapy anyway and this I discussed with her the plan of Carbo Alimta and Keytruda for 4 cycles to be followed by [facility] for minimum of2 years since she is stage IV. While scanning her every 3 months and likely repeat PET CT at end of 4 cycles of chemoimmunotherapy. I will also order Liquid Guardiant 360 to identify the EGFR status and the NTRK. Orders: Orders Complete Blood Count Auto Diff Today C34.90 - Malignant neoplasm of unspecifiedpart of unspecified bronchus or lung Comprehensive Metabolic Panel Today C34.90 - Malignant neoplasm of unspecified part of unspecified bronchus or lung Chemotherapy Class Today C34.90 - Malignant neoplasm of unspecified part of unspecified bronchus or lung Toxicity Check Today C34.90 - Malignant neoplasm of unspecified part of unspecified bronchus or lung Referrals Referral to General Surgery C34.90 - Malignant neoplasm of unspecified part ofunspecified bronchus or lung Medications: New folic acid 1 mg PO DAILY 60 tabs 1RF ondansetron 8 mg PO Q8HR PRN 30 tabs 2RF nausea and vomiting prochlorperazine maleate 10 mg PO Q6HR PRN 30 tabs 2RF nausea and vomiting Patient Instructions: Plan carboplatin,alimta,keytruda signatera,gaurdant 360 soon start folic acid and B12 port placement send zofran and compazine CHEMO PLAN No Active Chemotherapy History of Present Illness YULIANA Huitron is a 60-year-old female with history of [...] the scans. She had PET CT at [place] or [place] per patient prior to surgery but the [...] few pounds weight loss before the surgery. 03/28/25: She is here with her for finalizing plan of care after obtaining the results of the surgical path and also having PET CT scan and brain MRI. -Surgical path on 8 12/14/2024 revealed invasive poorly differentiated adenocarcinoma of the left upper lobe wedge resection with metastatic carcinoma in 1 intrapulmonary lymph node. Also there is metastatic carcinoma and lymph node tissue and level 7. Level 5 lymph node showed atypical cells rarely but noother pathology found. - PET CT scan on 03/28/2025 done at [facility] revealed: There is a 5 mm FDG avid lymph node within the left level 2A with a maximum SUV of 4.9 unchanged. There is a similar 5 mm intraparotid lymph node posteriorly on the right with a maximum SUV of 2.7. This is unchanged. Post surgical changes are noted consistent with prior wedge resection. Calcifications are noted extending towards the left infrahilar region with increased FDG accumulation along the deep margin and a maximum SUV of 2.8. Residual tumor is not excluded. However, this is most likely postsurgical. There is increased radiotracer accumulation along the anterior and lateral aspect of the left sixth rib with abnormal radiotracer accumulation and a maximum SUV of 2.5 suspicious for bony metastatic disease. This is new when compared to the prior exam. MRI of the brain done on 03/26/2025 revealed no evidence of intra cranial metastatic disease. Showed remote lacunar infarcts noted in the left cerebellarhemisphere. It showed encephalomalacia and gliosis along the gyrus rectus at the base of the frontal lobes bilaterally consistent with remote injury. 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 EGFR and NTK are not done. TREATMENT PLAN: Rad Onc discussed her case at [facility] Tumor Board and the decision is to checkSignatara circulating DNA to measure MRD and if it is elevated then to consider XRT. if not just to continue chemoimmunotherapy as stage IV possible assuming the left 6th rib is metastatic. Carbo AUC 5, Alimta and Keytruda for 4 cycles to be followed by [facility] for minimum of 24 months (30 cycles) while monitoring her scan. Likely PET after C4 chemo. Rest of the 14 point systems were reviewed and are negative. Intake Intake Visit Reasons: Follow Up after RAD Onc Allergies atorvastatin (From Lipitor) Allergy (Unknown, Verified 03/28/25 13:36) Unknown Reaction muscle pain Penicillins Allergy (Verified 03/28/25 13:36) Swelling of Lip/Tongue/Throat Home Medications - Last Reconciled 03/28/25 by BELLA Jacinto aspirin 81 mg PO DAILY budesonide DR-ER 9 mg (3 x 3 mg) PO QAM 30 days bupropion HCl XL 150 mg PO BID clopidogrel 75 mg PO DAILY diazepam (Valium) 5 mg PO ONCE PRN 1 day ergocalciferol (vitamin D2) 50 mcg PO QWEEK estradiol 2 mg PO QPM hydroxyzine HCl 25 mg PO QID PRN insulin aspart U-100 (Novolog U-100 Insulin aspart) 19 units subcut DAILY lamotrigine 100 mg PO QAM levothyroxine 50 mcg PO DAILY rosuvastatin 5 mg PO QAM Nurse's Note: Cancer treatment education bag and all contents including [facility] My cancer treatmentguide, signs and symptoms sheet, yellow fever card, magnet, caregiver resource list, [facility] nutrition guide, and cancer rehabilitation pamphlet provided anddiscussed with patient. Patient also provided with copy of consent, doctors business card, and clinic contact information. Printed drug information also provided and discussed with patient. All questions were answered to patient?s satisfaction and patient verbalizes understanding. Patient is here for a 2 week follow up with imaging for review. She also seen Radiation oncology today. [facility] Medical History Medical History Non-small cell lung cancer Mass of left [...] No problems noted. Social History Social History (Updated 03/15/25 @ 09:09 by BELLA Jacinto) Smoking status: Current every day smoker What [...] weakness or sensory changes. Physical Exam EXAM Physical Exam: KPS 90 General: alert and oriented male in no acute distress HEENT: normocephalic, extra ocular movements intact, clear OP Lungs: normal work of breathing on room air, CTAB, examination of the thorax shows thoracic port sites to be healing well. Lymph: No palpable cervical nor supraclavicular lymphadenopathy Abdomen: non acute MSK: extremities within normal limits Neuro: grossly intact Results - [facility]tr (Med Onc) LAB RESULTS Corrected WBC, (3.8-11.6) 7.9 X10E3/uL Today, 08:00 Hgb, (11.8-15.4) 13.0 g/dL Today, 08:00 Hct, (34.0-46.4) 39.0 % Today, 08:00 MCV, (80-100) 94.5 fl Today, 08:00 RDW, (11.9-15.3) 13.5 % Today, 08:00 Plt Count, (150-450) 369 x10E3/uL Today, 08:00 Sodium, (136-145) mmol/L Today, 08:00 Potassium, (3.5-5.1) mmol/L Today, 08:00 BUN, (7-25) 10 mg/dL Today, 08:00 Creatinine, (0.60-1.20) 0.79 mg/dL Today, 08:00 Glucose, (70-100) 137 mg/dL H Today, 08:00 Est GFR (CKD-EPI) > 60.0 mL/Min Today, 08:00 Calcium, (8.6-10.3) 8.9 mg/dL Today, 08:00 Total Bilirubin, (0.3-1.0) 0.3 mg/dl Today, 08:00 AST, (13-39) U/L Today, 08:00 ALT, (7-52) 16 U/L Today, 08:00 Alkaline Phosphatase, (34-104) 110 U/L H Today, 08 :00 Total Protein, (6.4-8.9) gm/dL Today, 08:00 Albumin, (3.5-5.7) gm/dL Today, 08:00 Social Determinants of Health Screening SDOH last assessed in clinic: 03/28/25 Will the patient participate in the screening?: [...] No Dictated By: Genie Bass MD DD/ 1402 Signed By: <Electronically signed by Genie Bass MD> 03/28/25 1504 [facility] Work Phone: reason for referral (narrative)No reason for referral information availableLakehealth [facility] Work Phone: Recdmv for visit Narrative* Imaging (Routine) - Closed Specialty Diagnoses / Procedures Referred By Contac t Referred To Contact Radiology Diagnoses Mass of left lung Procedures CT NEEDLE BIOPSY LUNG PERCUTANEOUS Cole Dumont PA-C [address] [address] Phone: tel: fax: Referral ID Status Reason Start Date Expiration Date Visits Re quested Visits Authorized [id number] Closed 09/13/2024 09/13/2025 1 1 [facility] Assessments No Assessments Information Available Summary Purpose [...] cell lung cancer March 15, 2025 9:38am Chief Complaint Admit Date 1 year follow up January 15, 2025 2:06 pm NEW - Lung Mass March 15, 2025 8: 51am New Patient, Med Onc/Rad Onc, Lung Cance r March 15, 2025 9:38am Lung Mass March 28, 2025 7: 45am Rad Onc/Med Onc Follow Up, Review Scans March 28, 2025 1:30pm Reason for Visit Admit Date Colitis January 15, 2025 2:06 pm Mass of left lung January 15, 2025 2:06 pm Non-small cell lung cancer March 15, 2025 8:51am Non-small cell lung cancer March 15, 2025 9:38am Non-small cell lung cancer March 28, 2025 1:30pm Chief Complaint Admit Date 1 year follow up January 15, 2025 2:06 pm NEW - Lung Mass March 15, 2025 8: 51am New Patient, Med Onc/Rad Onc, Lung Cance r March 15, 2025 9:38am Rad Onc/Med Onc Follow Up, Review Scans March 28, 2025 1:30pm Follow Up after RAD Onc March 28 2:03pm Lung Mass March 28, 2025 3: 07pm Reason for Visit Admit Date Colitis January 15, 2025 2:06 pm Mass of left lung January 15, 2025 2:06 pm Non-small cell lung cancer March 15, 2025 8:51am Non-small cell lung cancer March 15, 2025 9:38am Non-small cell lung cancer March 28, 2025 1:30pm Non-small cell lung cancer March 28, 2025 2:03pm Reason for Referral Specialty Diagnoses / Procedures Referred By Floyd gilman Referred To Contact Diagnoses 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 (CMS-HCC) Cigarette smoker motivated to quit Stenosis of aorta Procedures Vas aorta/iliac duplex complete Eleanor Phelps MD [address], [address] [address] Referral ID Status Reason Start Date Expiration Date V isits Requested Visits Authorized [id number] Pending Review 03/16/2024 03/16/2025 1 1 Specialty Diagnoses / Procedures Referred By Contac t Referred To Contact Radiology Diagnoses Mass of left lung Abnormal CT scan, chest Procedures PET CT SKULL BASE TO MID THIGH Renate Diallo, DO [address] [place] [address] Referral ID Status Reason Start Date Expiration Date Visits Re quested Visits Authorized [id number] Closed 08/08/2024 09/13/2024 1 1 Additional Source Comments INFORMATION SOURCE (unrecogn ized section and content) DATE CREATED AUTHOR 01/19/2022 [facility] DATE CREATED AUTHOR AUTHOR'S ORGANIZ ATION 03/23/2024 [facility] DATE CREATED AUTHOR AUTHOR'S ORGANIZ ATION 06/14/2024 [facility] DATE CREATED AUTHOR AUTHOR'S ORGANIZ ATION 10/14/2024 [facility] DATE CREATED AUTHOR AUTHOR'S ORGANIZ ATION 11/06/2024 [facility] DATE CREATED AUTHOR AUTHOR'S ORGANIZ ATION 11/25/2024 [facility] DATE CREATED AUTHOR AUTHOR'S ORGANIZ ATION 12/21/2024 [facility] DATE CREATED AUTHOR AUTHOR'S ORGANIZ ATION 01/16/2025 [facility] DATE CREATED AUTHOR AUTHOR'S ORGANIZ ATION 03/31/2025 [facility] REASON FOR VISIT (unrecogniz ed section and content) Specialty Diagnoses / Procedures Referred By Contac t Referred To Contact Radiology Diagnoses Mass of left lung Abnormal CT scan, chest Procedures PET CT SKULL BASE TO MID THIGH Renate Diallo, DO [address] [place] [address] Referral ID Status Reason Start Date Expiration Date Visits Re quested Visits Authorized [id number] Closed 08/08/2024 09/13/2024 1 1 Reason Comments Peripheral Vascular Disease New Referral from Zoila Sanchez for Dr. Phelps for PVD (peripheral vascular disease) records requested Leg Pain Specialty Diagnoses / Procedures Referred By Contac t Referred To Contact Vascular Surgery Diagnoses PVD (peripheral vascular disease) ([facility]) Zoila Sanchez PA-C [address] [place], [place] [address], [place] [address] [facility] [address] [place] [address] Referral ID Status Reason Start Date Expiration Date Visits Requested Visits Authorized [id number] Pending Review Specialty Services Required 01/03/2024 01/02/2025 [...] Procedures ECG 12 Lead Katarzyna Castro MD [address] [place] [address] Phone: tel: fax: Referral ID Status Reason Start Date Expiration Date V isits Requested Visits Authorized [id number] Authorized 10/26/2024 10/26/2025 1 1 Reason Comments Neck Mass New Patient : Left n adele mass Reason Comments Neck Mass CT results Reason Comments aortia stenosis to go over t esting completed in [place] a Doing well no complaints pain Reason Comments Follow-up 1 month Follow up fo r Coronary Artery Disease, discuss test results Specialty Diagnoses / Procedures Referred By Contac t Referred To Contact Cardiology Diagnoses Cardiomyopathy, ischemic Procedures Follow Up In Cardiology Katarzyna Castro MD [address] [place] [id number] Phone: tel: fax: Katarzyna Castro MD [address] [place] [address] Phone: tel: fax: Referral ID Status Reason Start Date Expiration Date V isits Requested Visits Authorized [id number] Authorized 10/26/2024 10/26/2025 1 1 Patient Care team informatio n (unrecognized section and content) Team Status: Active Member Role Status Dates Renate Diallo DO Primary Care Provider Active Team Status: Inactive Member Role Status Dates Renate Diallo , Primary Care Provider Active Geovanny Schaffer MD Attending Provider Active Resource Manager Forester Relationship Specialty Start Date End Date Renate Diallo DO [address] [place] [address] PCP - General 11/15/12 Resource Manager Forester Relationship Specialty Start Date End Date Flora Escalera, MERCHANDISE CARRIER-HOT STRIP MILL INSPECTOR [address] [place], [place] [id number] PCP - General Nurse Practitioner 02/14/24 Resource Manager Forester Relationship Specialty Start Date End Date Flora Escalera, MERCHANDISE CARRIER-HOT STRIP MILL INSPECTOR [address] [place], [place] [id number] PCP - General Nurse Practitioner 02/14/24 Resource Manager Forester Relationship Specialty Start Date End Date Flora Escalera, MERCHANDISE CARRIER-HOT STRIP MILL INSPECTOR [address] [place], [place] [id number] PCP - General Nurse Practitioner 02/14/24 Resource Manager Forester Relationship Specialty Start Date End Date Flora Escalera, MERCHANDISE CARRIER[employer]HOT STRIP MILL INSPECTOR [address] [place], [place] [id number] PCP - General Nurse Practitioner 02/14/24 Resource Manager Forester Relationship Specialty Start Date End Date Flora Escalera, MERCHANDISE CARRIER[employer]HOT STRIP MILL INSPECTOR [address] [place], [place] [id number] PCP - General Nurse Practitioner 02/14/24 Resource Manager Forester Relationship Specialty Start Date End Date Flora Escalera, MERCHANDISE CARRIER[employer]HOT STRIP MILL INSPECTOR [address] [place], [place] [id number] PCP - General Nurse Practitioner 02/14/24 Resource Manager Forester Relationship Specialty Start Date End Date Flora Escalera, MERCHANDISE CARRIER[employer]HOT STRIP MILL INSPECTOR [address] [place] [id number] PCP - General Nurse Practitioner 02/14/24 Resource Manager Forester Relationship Specialty Start Date End Date Renate Diallo DO [address] [place] [address] PCP - General 11/15/12 Resource Manager Forester Relationship Specialty Start Date End Date Renate Diallo DO [address] [place] [address] PCP - General 11/15/12 Resource Manager Forester Relationship Specialty Start Date End Date Renate Diallo DO [address] [place] [address] PCP - General 11/15/12 Resource Manager Forester Relationship Specialty Start Date End Date Renate Diallo DO [address] [place] [address] PCP - General Family Medicine 10/26/24 Resource Manager Forester Relationship Specialty Start Date End Date Renate Diallo MD [address] [place] [address] PCP - General Loss Prevention Analyst 10/30/24 Resource Manager Forester Relationship Specialty Start Date End Date Renate Diallo MD [address] [place] [address] PCP - General Loss Prevention Analyst 10/30/24 Resource Manager Forester Relationship Specialty Start Date End Date Renate Diallo MD [address] [place] [address] PCP - General Loss Prevention Analyst 10/30/24 Mac Turner MD [address] [facility] [address] [place] [address] Referring Physician Thoracic Surgery 11/01/24 Lissa Malone DO [address] [place] [address] Otolaryngology 11/01/24 Resource Manager Forester Relationship Specialty Start Date End Date Flora Escalera, MERCHANDISE CARRIER[employer]HOT STRIP MILL INSPECTOR [address] [place] [address] PCP - General Nurse Practitioner 02/14/24 Resource Manager Forester Relationship Specialty Start Date End Date Flora Escalera, MERCHANDISE CARRIER[employer]HOT STRIP MILL INSPECTOR [address] [place] [address] PCP - General Nurse Practitioner 02/14/24 Resource Manager Forester Relationship Specialty Start Date End Date Renate Diallo DO [address] [place] [address] PCP - General Family Medicine 10/26/24 Team [...] Status: Inactive Member Role Status Dates Renate Dilalo DO Primary Care Provider Active Start: December 08, 2024 End: December 10, 2024 Mac Turner MD Admit Provider, Atte nding Provider Active Start: December 08, 2024 End: December 10, 2024 Lety Lucas , CHRISTOPHER Other Provider Active Star t: December 08, 2024 End: December 10, 2024 Марина Hodge , CHRISTOPHER Other Provider Active Start : December 08, 2024 End: December 10, 2024 Mary You , CHRISTOPHER Other Provider Active Star t: December 08, 2024 End: December 10, 2024 Renetta Lyon , CHRISTOPHER Other Provider Active Start: M ay 2024 End: December 10, 2024 Arleen Rader , CHRISTOPHER Other Provider Active Start: Ks y 2024 End: December 10, 2024 Rosanna Petit RN Other Provider Active Start: ay 2024 End: December 10, 2024 Ant [...] 08, 2024 End: December 10, 2024 Ag More DO Other Provider Active Start: December 08, 2024 End: December 10, 2024 Jessica Mckay MD Other Provider Active Start: Ma y 2024 End: December 10, 2024 Joe Hutchison MD Other Provider Active Start: December 08, 2024 End: December 10, 2024 Kiarra Anderson NP-C Other Provider Active St art: December 08, [...] M ay 2024 End: December 10, 2024 Sherrell Tejeda DO Other Provider Active Start: Ma y 2024 End: December 10, 2024 Wolf Zambrano DO Other Provider Active Start : December 08, 2024 End: December 10, 2024 Aida Schmidt APRN Other Provider Active Start: December 08, 2024 End: December 10, 2024 Luis Beaver DO Other Provider Active Start: December 08, [...] End: December 10, 2024 Cong Hsu , DO Other Provider Active Star t: December 08, 2024 End: December 10, 2024 Shruthi Grace , DO Other Provider [...] Daly Gonsales MD Other Provider Active Start: ay 2024 End: December 10, 2024 Issac Hubbard MD Other Provider Active Start: Ks y 2024 End: December 10, 2024 Ozzy Perez MD Other Provider Active Start: December 08, 2024 End: December 10, 2024 Alcon Bazan MD Other Provider Active Start : December 08, 2024 End: December 10, 2024 Shilo Kiser MD Other Provider Active Start: [facility] 2024 End: December 10, 2024 Fallon Kim APRN Other Provider Active Sta rt: December 08, 2024 End: December 10, 2024 Edward Garcia APRN Other Provider Active Start: December 08, 2024 End: December 10, 2024 Yovana Pablo RN Other Provider Active Start: M ay 2024 End: December 10, 2024 Shanika Hyman MD Other Provider Active Start: [facility] 2024 End: December 10, 2024 Team Status: Active Member Role Status Dates Renate Diallo , DO Primary Care Provider Active Start: December 08, 2024 Mac Turner MD Admit Provider, Othe r Provider Active Start: December 08, 2024 Lety Lucas , CHRISTOPHER Other Provider Active Star t: December 08, 2024 Марина Hodge , CHRISTOPHER Other Provider Active Start : December 08, 2024 Mary You , CHRISTOPHER Other Provider Active Star t: December 08, 2024 Renetta Lyon , CHRISTOPHER Other Provider Active Start: 2024 Arleen Rader , CHRISTOPHER Other Provider Active Start: Ma y 2024 Rosanna Petit , CHRITSOPHER Other Provider Active Start: 2024 Ant Han MD Other Provider Active Start: December 08, 2024 Nolberto Stone DO Other Provider Active Start : December 08, 2024 Matthew Hope MD Other Provider Active Start : December 08, 2024 Scot Centeno DO Other Provider Active Start: December 08, 2024 Hugh Mendoza MD Other Provider Active Start: December 08, 2024 Bri Maravilla MD Other Provider Active Start : December 08, 2024 Ag Hoang DO Other Provider Active St art: December 08, 2024 Alcon Martino MD Other Provider Active Start: 2024 Sophy Coughlin APRN Other Provider Active Start: December 08, 2024 Jackie Mansfield MD Other Provider Active Start: December 08, 2024 Marcell Andrade MD Other Provider Active Start: 2024 Rekha Pagan MD Other Provider Active Start: December 08, 2024 Georgie Burden MD Other Provider Active Start: December 08, 2024 Ag More DO Other Provider Active Start: December 08, 2024 Jessica Mckay MD Other Provider Active Start: Ma y 2024 Joe Hutchison MD Other Provider Active Start: December 08, 2024 Kiarra Anderson , [employer]ING [employer]EMAN-C Other Provider Active St art: December 08, [...] Active Start: M ay 2024 Sherrell Tejeda , Other Provider Active Start: Ma y 2024 Wolf Zambrano , DO Other Provider Active Start : December [...] Other Provider Active Start: M ay 2024 Dulce Maria Rivera MD Other Provider Active S tart: December 08, 2024 Cong Hsu , Other Provider Active Star t: December 08, 2024 Shruthi Grace , Other Provider Active Start: December 08, 2024 Maicol Smith MD Other Provider Active Start: December 08, 2024 Raisa Back MD Other Provider Active Start: December 08, 2024 Kimberly Samson APRN Other Provider Active Star t: December 08, 2024 Daly Gonsales MD Other Provider Active Start: M ay 2024 Issac Hubbard MD Other Provider Active Start: Ma y 2024 Ozzy Perez MD Other Provider Active Start: December 08, 2024 Alcon Bazan MD Other Provider Active Start : December 08, 2024 Shilo Kiser MD Other Provider Active Start: M ay 2024 Fallon Kim APRN Other Provider Active Sta rt: December 08, 2024 Edward Garcia APRN Other Provider Active Start: December 08, 2024 Yovana Pablo RN Other Provider Active Start: Margarita kelley 2024 Shanika Hyman MD Attending Provider, Other Provider Active Start: December 08, 2024 Resource Manager Forester Relationship Specialty Start Date End Date Renate Diallo MD [address] [place] [address] PCP - General Loss Prevention Analyst 10/30/24 Mac Turner MD [address] [facility] [address] [place] [address] Referring Physician Thoracic Surgery 11/01/24 Lissa Malone DO [address] [place] [address] Otolaryngology 11/01/24 Team Status: Inactive Member Role [...] 2025 End: March 15, 2025 Team Status: Active Member Role Status Dates Renate Diallo DO Primary Care Provider Active Start: March 28, 2025 Genie Bass MD Attending Provider Active Start: March 28, 2025 Mac Turner MD Referring Provider Active Start : March 28, 2025 Team Status: Inactive Member Role Status Dates Renate Diallo DO Primary Care Provider Active Start: March 28, 2025 End: March 28, 2025 Noble Tipton MD Attending Provider Active Start: March 28, 2025 End: March 28, 2025 Team Status: Inactive Member Role Status Dates Renate Diallo DO Primary Care Provider Active Start: March 28, 2025 End: March 28, 2025 Genie Bass MD Attending Provider Active Start: March 28, 2025 End: March 28, 2025 Goals (unrecognized section and content) Goals [...] BE BASED ON THE PRIMARY CLINICAL RECORDS. [employer] provides no warranty or guarantee of the accuracy or completeness of information in this document.
[2025-04-10] MEDS: ALBUTEROL SULFATE 2.5 MG/3 ML VIAL NEB IH (16:00)
== END 2025-04-10 15:04 | disposition home or self-care (01) ==
PROVIDERS: PCP Family Medicine
DX: C34.90 Malignant neoplasm of unspecified part of unspecified bronchus or lung (principal)
CPT/HCPCS: 94060; 94726; 94729